=== PATIENT | male | born 1940 | race Caucasian/White ===

== ENCOUNTER 2020-03-23 09:45 | Observation (INO) ==
[2020-03-23] MEDS ORDERED: LIDOCAINE HCL 1% 20 ML VIAL ONE (11:21)
[2020-03-23] MEDS ORDERED: BACITRACIN INJ 50,000 UNIT VIAL ONE (11:22)
[2020-03-23] MEDS ORDERED: BUPIVACAINE 0.25% 30 ML VIAL ONE (11:22)
[2020-03-23] MEDS ORDERED: MIDAZOLAM HCL 5 MG/ML 1 ML VIAL ONE (11:41)
[2020-03-23] MEDS ORDERED: fentaNYL citrate 100 MCG/2 ML VIAL ONE ×2 (11:41→12:29)
--- NOTE | 2020-03-23 11:54 | History & Physical Bridge Note ---
Date of Service March 23, 2020 History & Physical Bridge Note I have examined the patient, reviewed the History & Physical and in the interval since the performance of the History & Physical I have noted the following changes of clinical significance: no changes noted
--- NOTE | 2020-03-23 11:54 | Pre Anesthesia Assessment ---
Date of Service March 23, 2020 Pre Sedation Assessment Vital Signs Temp Pulse Resp BP Pulse Ox 03/23/20 10:16 36.7 C 76 20 132/101 H 99 Cardiovascular + bradycardic Respiratory normal respiratory effort, lungs clear to auscultation Pre-Sedation Airway Assessment Smoking Status: Former smoker Hx Sleep Apnea: No Short, Thick Neck: No Thyromental Distance: < 3.5 Finger Breadths Oral Cavity: + Dentures Mallampati Class: II ASA: ASA3 NPO Status Date of Last Intake of Fluids: 03/22/20 Time of Last Intake of Fluids: 16:00 Date of Last Intake of Solid Food: 03/22/20 Time of Last Intake of Solid Foods: 16:00 Procedure Planning Contraindications for Sedation: none Current Medications Reviewed: Yes Notes The planned sedation has been discussed with the patient. Informed Consent was obtained. I have identified the patient, determined the appropriateness of sedation and have assessed the patient immediately prior to the procedure. All medicine(s) and interventions are by my order.
[2020-03-23] MEDS ORDERED: ACETAMINOPHEN 325 MG TAB PO PRN (13:02)
[2020-03-23] MEDS ORDERED: oxyCODONE/ACETAMINOPHEN 5mg/325mg TAB PO PRN (13:02)
--- NOTE | 2020-03-23 13:02 | Operative Report ---
Post Operative Report Pre & Post Diagnosis SB, [facility] Operation Date: 03/23/20 11:00 <No data on this case meets the specified criteria> I identified the patient and participated in the time-out.: Yes Procedure Operation Date: 03/23/20 11:00 Actual Procedures p ICD Implant - Lakshmi Rubio DO Surgeon Lakshmi Rubio, DO Promotional Demonstrator none Estimated Blood Loss 20 Findings Consistent with Post-Op Diagnosis Specimens none Description of Procedure see official report I attest to the content of the Intraoperative Record and any orders documented therein. Any exceptions are noted below.
--- NOTE | 2020-03-23 13:02 | Post Anesthesia Assessment ---
Date of Service March 23, 2020 Post Sedation Assessment Vital Signs Temp Pulse Resp BP Pulse Ox 03/23/20 10:16 36.7 C 76 20 132/101 H 99 Recovery Score Activity: Moves 4 extremities Respiration: Deep Breath/Cough Circulation: +/-20% PreAnes Value Consciousness: Fully Awake Oxygen Saturation: > 92% On Room Air Discharge Sedation Level of Care: Fast Track Phase II Post Sedation Plan On clinical assessment, the patient appears to have tolerated the sedation without complications. Patient is recovering as anticipated. Patient will continue to be monitored by nursing and may be discharged when sedation discharge criteria are met per below protocol. Upon Completions of procedure up to 15 minutes continue every 5 minute vital signs and the P.A.R. score; then discharge to a Phase I or Fast Track to Phase II per the following guidelines: * Discharge Patient to appropriate Phase II area if PAR is 8 or greater or return to pre- procedure baseline. The post - procedure orders will be as directed. * If PAR score is less than 8 or not return to pre-procedure baseline then patient will follow Phase I monitoring till PAR is reached for Phase II. The Phase I may be done in procedure room or may call to secure a Phase I area. * If naloxone or flumazenil are used for reversal, hold in Phase I for continued monitoring from when last reversal dose was given for a minimum of 60 minutes or longer pending the nurse and/or physician discretion of patient condition before discharge to Phase II. Please call the Sedation Physician to re-evaluate and complete post-note for discharge to Phase II area. Do NOT discharge from procedure sedation or Phase 1 until post- sedation evaluation note is complete by procedure /sedation MD Sedation Discharge Instructions to be given to the patient at discharge to home.
[2020-03-23] MEDS ORDERED: BENZONATATE 100 MG CAPSULE PO PRN (13:04)
[2020-03-23] MEDS ORDERED: FUROSEMIDE 40 MG TAB PO PRN (13:04)
[2020-03-23] MEDS ORDERED: NITROGLYCERIN SL 0.4 MG/TAB TAB SL PRN (13:15)
[2020-03-23 14:58] LABS: INR 1.1 (0.9-1.1); Prothrombin Time 11.5 Seconds (9.0-12.0)
[2020-03-23] MEDS: METOPROLOL SUCC 25MG EXT REL TAB PO SCH (16:08)
[2020-03-23] MEDS ORDERED: WARFARIN SOD 5 MG TAB PO SCH (17:00)
[2020-03-23] MEDS ORDERED: METOPROLOL TARTRATE 25 MG TAB PO SCH (21:00)
[2020-03-23] MEDS ORDERED: PRAVASTATIN SOD 40 MG TAB PO SCH (21:00)
[2020-03-23] MEDS ORDERED: FAMOTIDINE 20 MG TAB PO SCH (21:00)
[2020-03-23] MEDS: metFORMIN HCL 500 MG TAB PO SCH (21:02)
[2020-03-24 06:16] LABS: INR 1.1 (0.9-1.1); Prothrombin Time 11.2 Seconds (9.0-12.0)
--- NOTE | 2020-03-24 06:24 | Electrocardiogram Report ---
Test Reason : Blood Pressure : / mmHG Vent. Rate : 084 BPM Atrial Rate : 084 BPM P-R Int : 150 ms QRS Dur : 130 ms QT Int : 380 ms P-R-T Axes : 055 -75 043 degrees QTc Int : 449 ms Sinus rhythm with Premature supraventricular complexes and with occasional Premature ventricular comp lexes Left axis deviation Low voltage QRS Right bundle branch block Inferior infarct , age undetermined Possible Anterolateral infarct , age undetermined Abnormal ECG No previous ECGs available Confirmed by Steve Cox ([id number]) on 03/24/2020 6:24:36 AM Referred By: Lakshmi Rubio Confirmed By:Steve Cox
[2020-03-24] MEDS ORDERED: LEVOTHYROXINE SODIUM 50 MCG TABLET PO SCH (06:30)
--- NOTE | 2020-03-24 08:00 | XRay Report ---
XR chest 2V PA/lateral CLINICAL HISTORY: Post pacemaker placement COMPARISON STUDY: No previous studies for comparison. FINDINGS: There is a left subclavian implantable cardiac defibrillator. Electrode position appears un remarkable. There is no pneumothorax. The heart is normal in size. There is no failure. There is no f ocal pulmonary consolidation. There is a 1 cm opacity at the right lung base, likely representing a n ipple shadow. A left apical density is felt to be secondary to summation with the left first costocho ndral junction. Postsurgical changes involve the distal left clavicle.[ IMPRESSION: 1. No evidence of pneumothorax status post placement of a left subclavian ICD 2. 1 cm rounded opacity at the right lung base likely representing a nipple shadow ACT 112: Negative or not required by law. Electronically signed by: Usman Downey M.D. 03/24/2020 7:59 AM
[2020-03-24] MEDS: metFORMIN HCL 500 MG TAB PO SCH (08:35)
[2020-03-24] MEDS ORDERED: ISOSORBIDE MONO EXTENDED REL 30 MG TABCR PO SCH (09:00)
[2020-03-24] MEDS ORDERED: CYANOCOBALAMIN 500 MCG TABLET (VITAMIN B-12) PO SCH (09:00)
[2020-03-24] MEDS ORDERED: ASPIRIN 81 MG ECTAB PO SCH (09:00)
[2020-03-24] MEDS ORDERED: FERROUS SULFATE 325 MG TAB PO SCH (09:00)
[2020-03-24] MEDS ORDERED: PANTOprazole 40 MG TAB PO SCH (09:00)
[2020-03-24] MEDS: METOPROLOL SUCC 25MG EXT REL TAB PO SCH (09:57)
--- NOTE | 2020-03-26 18:16 | Operative Report (OR) ---
DATE OF OPERATION: 03/23/2020 PREOPERATIVE DIAGNOSES: Ischemic cardiomyopathy and sinus bradycardia. POSTOPERATIVE DIAGNOSES: Ischemic cardiomyopathy and sinus bradycardia. PROCEDURE: Dual chamber rate responsive implantable cardiac defibrillator under fluoroscopic guidance. SURGEON: Lakshmi Rubio DO. ASSISTANTS: None. ANESTHESIA: Monitored conscious sedation administered by Rosamaria Martins. Start time 12:09, end time 12:57, a total of 5 mg of Versed 150 mcg of fentanyl. INTRAVENOUS FLUIDS: 30 mL. CONTRAST: 10 mL ANTIBIOTICS: Two grams of Ancef. BLOOD LOSS: 20 mL. URINE OUTPUT: Not applicable. SPECIMENS: None. FINDINGS: See below. DRAINS: None. INDICATIONS: This is a 79-year-old gentleman with past medical history for coronary artery disease, history of an CT in 1991 where he got streptokinase anterior CT. He had 80% LAD, status post to the LAD, catheterization in 11/1995, 80% mid LAD stent with a non-STEMI in 2004. He got another catheterization at the [facility] of the LAD and the rest of the blood vessels are nonobstructive. Ischemic cardiomyopathy, ejection fraction 35-40% in 1995, 25% in 2004 and remains low at 25% in 02/2020. Left ventricular thrombus on Coumadin, diabetes, hypothyroidism, hypertension, hyperlipidemia, chronic heart failure [place] Heart Association class III with reduced EF, sinus bradycardia, right bundle branch block and BPH. Due to his ischemic cardiomyopathy and sinus bradycardia, he was recommended dual chamber ICD. CONSENT: Consent was obtained prior to the patient going into electrophysiology lab. The patient was informed of the risks, benefits and alternatives of procedure. Risks include but not limited to sudden cardiac , cardiac arrhythmias, cerebrovascular accident, myocardial infarction, injury to the blood vessels, chamber of the heart, lung, bleeding, and infection. The patient understood these risks and agreed with procedure as planned. Informed consent was obtained. DESCRIPTION OF THE PROCEDURE: The patient was brought into the electrophysiology lab in fasting state. He was connected to continuous cna caregiver. Timeout was performed to ensure patient identity and procedure correctly. The patient was prepped and draped over the left infraclavicular space in normal surgical standard fashion. Monitored conscious sedation was given throughout the procedure for patient's comfort level. Davis precautions were obtained throughout the procedure. 10 mL of 1% lidocaine, bupivacaine mixture were given in left deltopectoral groove. Incision was made in left deltopectoral groove. Blunt dissection performed down to identify the cephalic vein, I think initially I could not identify it, so I gave a peripheral venogram with 10 mL of contrast, but I ended up instead of sticking the axillary, I did dissect down to the cephalic vein. Cephalic vein was isolated using 0 silk ties. The vein was nicked with 11 blade and a guidewire was inserted without any resistance. Then an 8-[place] SafeSheath was inserted over the guidewire without any resistance. Dilator was removed and a second guidewire was inserted through the sheath to allow for retained venous access. Sheath was removed and then a 9.5-[place] SafeSheath was inserted over the guidewire without any resistance. Guidewire and dilator removed. The right ventricular defibrillator lead was then advanced into right ventricle positioned in intraventricular apex under fluoroscopic guidance. There was adequate pacing and sensing thresholds and no diaphragmatic stimulation in high output pacing. The 9.5-[place] sheath was peeled away and lead was fixated to pectoralis muscle using 0 silk suture. A second sheath 8-[place] was advanced over the retained guidewire. The guidewire and dilator removed. The right atrial lead was then advanced into right atrium and positioned into the right atrial appendage under fluoroscopic guidance. There was adequate pacing and sensing thresholds and no diaphragmatic stimulation with high output pacing. The 8-[place] sheath was peeled away and lead was fixated to pectoralis muscle using 0 silk suture. My defibrillator pocket was created using blunt dissection over the pectoralis muscle within the pectoral fascia. The pocket was flushed with copious amounts of bacitracin saline wash and inspected for hemostasis. The pulse generator was attached to the leads making sure the pins were in appropriate position, passed set screw and set screws were all tightened. Pulse generator was then placed in an antibiotic pouch followed by then placing in the pocket, making sure the leads were lying flat beneath the device. The incision was then closed in 2-layer fashion with 2-0 Vicryl interrupted suture followed by 3-0 Vicryl interrupted suture, followed by 4-0 Monocryl running stitch and Dermabond was applied followed by Telfa and micropore dressing. EQUIPMENT: 1. Pulse generator is a [employer] XTDR SureScan [id number], serial number [id number]. 2. Tyrx pouch reference [id number], lot number [id number], expiration 12/06/2020. 3. Right atrial lead Medtronic 5076-52 cm, serial number [id number]. 4. Right ventricular lead, Medtronic 6935M-62 cm, serial number [id number]. INTRAOPERATIVE TESTIN. Right atrial lead: P waves 2.3 millivolts, impedance 602 ohms, threshold 0.8 volts at 0.4 milliseconds. 2. Right ventricular lead: R-waves 8 millivolts, impedance 509 ohms, threshold 0.4 volts at 0.4 milliseconds. FINAL PARAMETERS THROUGH THE DEVICE: 1. Right atrial lead: P waves 2.1 millivolts, impedance 456 ohms, threshold 1 volt at 0.4 milliseconds. 2. Right ventricular lead: R waves 11.3 millivolts, impedance 437 ohms, threshold 0.5 volts at 0.4 milliseconds. 3. RV coil 74 ohms. FINAL PARAMETERS: MVP-R 60/130, right atrial and right ventricular amplitude 3.5 volts, pulse width 0.4 milliseconds, sensitivity 0.3 millivolts. A VT monitor zone at 140 beats per minute for 32 detection intervals, a VT zone at 167 beats per minute for 16 detection intervals and a VF zone at 200 beats per minute for 30/40 detection intervals. IMPRESSION: Successful implantation of a dual chamber rate responsive implantable cardiac defibrillator under fluoroscopic guidance along with a peripheral venogram secondary to ischemic cardiomyopathy and sinus bradycardia. PLAN: Monitor patient overnight, 12-lead ECG, chest x-ray. He is not allowed to lift left elbow or left shoulder for 1 month. He cannot lift more than 10 pounds with the left arm for 2 weeks. He is to keep the dressing on and dry until his wound check next week. We will start him back on metoprolol 25 mg daily, and he will continue to follow with general cardiology. I attest to the content of the Intraoperative Record and any orders documented therein. Any exception s are noted below.
== END 2020-03-24 10:00 | disposition home or self-care (01) ==
LOC: 2S 09:45 → EP 09:45
PROC: EPB.ICD (2020-03-23 11:00)

== ENCOUNTER 2021-06-22 22:02 | Inpatient (IN) ==
[2021-06-22] MEDS ORDERED: PANTOprazole 80 MG in DEXTROSE 5% 100 ML IV ONE (22:32)
[2021-06-22] MEDS ORDERED: PANTOPRAZOLE BOLUS/DRIP 1 EA IV STA (22:32)
[2021-06-22 22:36] LABS: Hematocrit (blood only) 23.8 % (42-52); Hemoglobin 7.5 g/dL (14.0-18.0); Mean Corpuscular Hemoglobin 29.4 pg (25-34); Mean Corpuscular Hgb Conc 31.5 g/dL (32-36); Mean Corpuscular Volume 93.3 fL (80-100); Mean Platelet Volume 9.9 fL (7.4-10.4); Nucleated RBC # (auto) 0.02 K/uL (0-0); Nucleated RBC % (auto) 0.2 %; Platelet Count 376 K/uL (130-400); RDW Coefficient of Variation 15.7 % (11.5-14.5); RDW Standard Deviation 53.3 fL (36.4-46.3); Red Blood Count 2.55 M/uL (4.7-6.1); White Blood Count 11.59 K/uL (4.8-10.8)
[2021-06-22 22:42] LABS: iSTAT Creatinine 1.6 mg/dl (0.6-1.3); iSTAT Hemoglobin 6.8 g/dl (14.0-18.0); iSTAT Ionized Calcium 1.29 mmol/l (1.12-1.32)
--- NOTE | 2021-06-22 22:50 | Emergency Department Note ---
Impression & Plan Acute GI bleeding, Elevated troponin I level, ABLA (acute blood loss anemia), Elevated INR ED Provider Note Provider: Geovanny Lamb MD DATE OF SERVICE: 06/22/2021 CHIEF COMPLAINT: Weakness HISTORY OF PRESENT ILLNESS: Patient is a 80-year-old gentleman history of type 2 diabetes, CHF with reduced EF, GA, AICD placement, mural thrombus on warfarin, hypothyroidism presenting here today via ambulance for generalized weakness. Over the past 2 to 3 days the patient states he began to feel more weak in general. Today he felt somewhat dizzy and lightheaded and fell to the ground. Denies loss of consciousness. Is on a baby aspirin as well as Coumadin. Was able to call his brother and EMS was activated. In route with EMS, the patient developed significant vomiting and vomited coffee-ground emesis and a significant quantity. Patient denies any abdominal pain or chest pain. He is planning to undergo surgery for a left humeral fracture from an injury in March but denies other pains at this time. Patient states he feels generally weak. Denies any headache or new numbness or weakness focally. REVIEW OF SYSTEMS: A total of 10 review of systems was obtained and negative except as stated above in the HPI. PAST MEDICAL HISTORY: As noted above MEDICATIONS: Reviewed home medication list includes Coumadin SOCIAL HISTORY: Lives by himself PHYSICAL EXAM: GENERAL: alert and oriented in no acute distress on stretcher slightly pale in appearance. Head: normocephalic and atraumatic, there is some slight dried coffee grounds in the patient's nose. No renee sign noted. EYES: No injection, discharge or icterus. NECK: Trachea midline. ENT: Mucous membranes pink and moist. LUNGS: Airway patent. No retractions. Breath sounds clear HEART: Regular rate and rhythm. No chest wall tenderness with a left upper chest wall pacemaker in place ABDOMEN: Soft and non-tender, without guarding or rebound. Rectal: With nurse fishing rod marker in room, black melanotic stools Hemoccult positive. SKIN: Acyanotic, warm, dry slightly pale. EXTREMITIES: Without swelling, tenderness or deformity except for some trace bilateral pedal edema with tenderness of the left proximal upper arm without obvious bruising. NEUROLOGICAL: No focal deficits. No aphasia. No facial droop or slurred speech. EK bpm sinus tachycardia with right bundle branch block. No acute ST segment elevation noted with a QTC of 482. CONTINUOUS CARDIAC MONITORING: was ordered and showed a heart rate of 90s to 100s Bpm in normal sinus rhythm to sinus tachycardia One view chest x-ray per my interpretation: Pacemaker in cardiac leads in place. No obvious pneumonia or pneumothorax noted. No free air under the diaphragm noted. Patient's laboratory studies and imaging reviewed. Differential includes Diverticulosis, AVM, coagulopathy, colitis, inflammatory bowel disease, malignancy, Racheal-Orr tear, esophagitis, peptic ulcer disease, variceal bleed, gastritis, epistaxis, fissure, hemorrhoids, as well as other pathologies. IMPRESSION/MEDICAL DECISION MAKING: Patient is a generalized weakness with episode of coffee-ground emesis in route while on Coumadin as well as aspirin. Patient with Hemoccult positive melena on exam. Benign abdomen. Only significant tenderness on exam related to the left upper arm with prior subacute fracture here from injury in March. Had basic blood work and cardiac echo completed yesterday per review of the records in the [facility] system. History of mural thrombus but no findings of this on the echo report available. Given his GI bleed start on Protonix drip. CT the head, cervical spine, as well as the abdomen pelvis completed given the fall history as well as concerns for GI bleed at this time. Fairly benign abdomen and doubt perforation. Question upper GI bleed and prior endoscopy several years ago and this is to medicate gastritis at that time. Hemoglobin decreased at 7.5 here on the formal labs with mild leukocytosis 11.5 likely more reactive. Blood work yesterday had an hemoglobin of 12.7 on outpatient lab work. Significantly elevated BUN with mild creatinine elevation 1.6. Blood work later returns with slight troponin elevation and a significantly elevated lactate. Patient not hypotensive here. He was consented for blood. 3 units of blood were ordered, will need to monitor for any possible fluid overload given his history of CHF. Vitamin K was ordered. Given elevated INR from Coumadin the GI bleed full reversal with Kcentra was initiated (was later able to contact Dr. Don via phone after a slight delay). CT the head and cervical spine as delineated below without significant acute traumatic injury per the report. CT of the abdomen pelvis radiology report really only notable for possible findings of pneumonia and question if with the vomiting earlier may have aspirated some. Given a dose of ceftriaxone. Patient not hypoxic here or any respiratory distress. Updated the patient with the findings. Discussed with the hospitalist for further care here at the hospital. Again has been hemodynami ashley stable here. DIAGNOSIS: Acute GI bleed, weakness, acute anemia, elevated troponin, elevated INR DISPOSITION: Hospitalist will evaluate for further inpatient care Patient was agreeable with this plan. Preliminary Findings Only See Final Report For Complete Findings CT HEAD: Mild cerebral atrophy and periventricular white matter low density consistent with chronic small vessel disease and/or senescent changes. There is no evidence of acute large vessel infarct or intracranial hemorrhage. The paranasal sinuses and mastoid air cells are normal. No skull fracture or significant scalp hematoma is identified. There are 2 punctate calcifications in the right side of the jessica. This is nonspecific but could represent small chronic vascular malformation. No hemorrhage or mass identified. Radiologist: Geovanny Gamboa MD Preliminary Findings Only See Final Report For Complete Findings CT C SPINE: Mild degenerative disc space narrowing and osteophytosis in the lower cervical spine. The facets and spinous processes are intact. The spinal alignment is normal. No acute cervical spine fracture or traumatic subluxation is seen. Axial soft tissue images show severe findings at the following levels: C5-6: Disc space narrowing and 3 mm posterior disc bulge and disc marginal osteophyte narrows the canal to 7 mm. There is mild bilateral neural foraminal narrowing. C6-7: Disc space narrowing with 2 mm posterior disc marginal osteophyte. No significant spinal stenosis is seen. There is mild bilateral neural foraminal narrowing. Incidental note is made of severe calcified plaque in the origin of the left subclavian artery and moderate calcified plaque in both carotid bifurcations, greater on the right than the left. Radiologist: Geovanny Gamboa MD N Study ready at 23:50 and initial results transmitted at 00:07 Preliminary Findings Only See Final Report For Complete Findings CT ABDOMEN & PELVIS With Contrast: Scattered patchy airspace infiltrates in the right middle lobe and right lower lobe consistent with pneumonia. No solid organ injury or free fluid is seen within the abdomen or pelvis. The liver, gallbladder, pancreas, spleen, adrenal glands, and kidneys appear nonacute. Incidental note is made of a 3.5 cm simple cyst in the lower pole the left kidney. The aorta is mildly calcified but nondilated. Bowel loops are nondilated. No pneumoperitoneum, free fluid, or acute inflammatory changes are seen involving the bowel. The appendix is normal. The urinary bladder is partially distended and unremarkable. The pelvis is intact. There are mild to moderate degenerative changes in the lumbar spine. No acute fracture or subluxation is seen. Radiologist: Geovanny Gamboa MD Critical Care I have personally spent 32 minutes of critical care time in the direct management of this patient. This includes bedside care, interpretation of diagnostic studies, and testing, discussion with consultants, patient, and other required patient management activities. These 32 minutes is in excess of all separately billable procedures. Past Med/Surg History Medical History (Updated 06/22/21 @ 23:52 by Geovanny Lamb M.D.) Diabetes mellitus, type 2 History of GI bleed History of left heart catheterization 1991 [place], NO STENTS 2004 [facility], UNSURE OF STENTS Hyperlipidemia Hypertension Ischemic cardiomyopathy Pt admitted for elective ICD due to ICM. Pt underwent procedure without any complications; monitored overnight and discharged home. Osteoarthritis Poor historian Sinus bradycardia Surgical History History of adenoidectomy History of carpal tunnel release of both wrists History of cataract surgery BOTH EYES History of colonoscopy 5 YEARS AGO History of tonsillectomy History of tooth extraction Social History Smoking Status: Never smoker Hx Alcohol Use: Yes Alcohol type: beer Hx Substance Use: No Preferred Language: Latvian Communication Ability: Effective Acid Patroller Required: No Beliefs That Will Affect Care: None Current Living Situation: Alone Feels Safe at Home: Yes Assistive Devices: None Allergies Allergies Allergy/AdvReac Type Severity Reaction Status Date / Time No Known Allergies Allergy Verified 06/22/21 22:21 Home Meds Home Medications Medication Instructions Recorded Confirmed aspirin 81 mg tablet,delayed 81 mg PO QAM 01/14/20 06/22/21 release (Aspirin Low Dose) cyanocobalamin (vitamin B-12) 1,000 mcg PO QAM 01/14/20 06/22/21 1,000 mcg capsule famotidine 20 mg tablet 20 mg PO HS 01/14/20 06/22/21 isosorbide mononitrate 30 mg 30 mg PO QAM 01/14/20 06/22/21 tablet,extended release 24 hr metformin 1,000 mg tablet 1,000 mg PO BID 01/14/20 06/22/21 nitroglycerin 0.4 mg sublingual 0.4 mg SUBLINGUAL UD 01/14/20 06/22/21 tablet (Nitrostat) atorvastatin 40 mg tablet 40 mg PO DAILY 06/22/21 06/22/21 doxycycline hyclate 100 mg capsule 100 mg PO BID 06/22/21 06/22/21 furosemide 40 mg tablet 80 mg PO DAILY 06/22/21 06/22/21 gabapentin 100 mg capsule 100 mg PO AMHS 06/22/21 06/22/21 levothyroxine 100 mcg tablet 100 mcg PO DAILYBB 06/22/21 06/22/21 magnesium oxide 400 mg PO DAILY 06/22/21 06/22/21 metoprolol succinate 50 mg 50 mg PO DAILY 06/22/21 06/22/21 tablet,extended release 24 hr omeprazole 40 mg capsule,delayed 40 mg PO DAILYBB 06/22/21 06/22/21 release warfarin 5 mg tablet See Rx Instructions .ROUTE .COMPLEX 06/22/21 06/22/21 Results & Data (ED) Vital Signs Vital Signs - 24 hr 06/22/21 22:30 06/22/21 22:48 06/22/21 23:42 Temperature 35.4 C L Temperature Source Rectal Pulse Rate 110 H 106 H Pulse Rate [Right Finger] 100 H Pulse Rhythm Regular Regular Pulse Strength Normal Respiratory Rate 18 18 19 Respiratory Effort / Characteristics Non-Labored Spontaneous Non-Labored Spontaneous Respiratory Depth Normal Normal Respiratory Pattern Regular Blood Pressure 119/62 Blood Pressure [Right Arm] 124/67 Blood Pressure Mean 81 Blood Pressure Mean [Right Arm] 86 Blood Pressure Position Lying Pulse Oximetry 100 96 Oxygen Delivery Method Room Air Room Air Sepsis Recent Fever Within 48 Hours No Sepsis New/Unexplained Change in Mental Status No Sepsis Action Taken by Nursing Physician Notified 06/22/21 23:59 06/23/21 00:18 06/23/21 00:33 Temperature 36.5 C 34.9 C L 36.5 C Temperature Source Oral Oral Oral Pulse Rate 101 H 104 H 107 H Pulse Rate [Right Finger] Pulse Rhythm Regular Regular Regular Pulse Strength Normal Normal Normal Respiratory Rate 16 18 17 Respiratory Effort / Characteristics Respiratory Depth Respiratory Pattern Blood Pressure 128/63 123/70 116/69 Blood Pressure [Right Arm] Blood Pressure Mean 84 87 84 Blood Pressure Mean [Right Arm] Blood Pressure Position Lying Lying Lying Pulse Oximetry 95 94 93 Oxygen Delivery Method Sepsis Recent Fever Within 48 Hours Sepsis New/Unexplained Change in Mental Status Sepsis Action Taken by Nursing 06/23/21 01:03 Temperature 36.4 C L Temperature Source Oral Pulse Rate 106 H Pulse Rate [Right Finger] Pulse Rhythm Regular Pulse Strength Normal Respiratory Rate 16 Respiratory Effort / Characteristics Respiratory Depth Respiratory Pattern Blood Pressure 114/62 Blood Pressure [Right Arm] Blood Pressure Mean 79 Blood Pressure Mean [Right Arm] Blood Pressure Position Lying Pulse Oximetry 99 Oxygen Delivery Method Sepsis Recent Fever Within 48 Hours Sepsis New/Unexplained Change in Mental Status Sepsis Action Taken by Nursing Laboratory Data Result diagrams: 06/22/21 22:25 06/22/21 22:25 Lab Results 06/22/21 06/22/21 06/22/21 Range/Units 22:21 22:25 22:25 WBC 11.59 H (4.8-10.8) K/uL RBC 2.55 L (4.7-6.1) M/uL Hgb 7.5 L (14.0-18.0) g/dL POC Hgb (14.0-18.0) g/dl Hct 23.8 L (42-52) % POC Hct (42-52) % MCV 93.3 (80-100) fL MCH 29.4 (25-34) pg MCHC 31.5 L (32-36) g/dL RDW Std Deviation 53.3 H (36.4-46.3) fL RDW Coeff of Nicole 15.7 H (11.5-14.5) % Plt Count 376 (130-400) K/uL MPV 9.9 (7.4-10.4) fL Immature Gran % (Auto) 0.8 % Neut % (Auto) 79.7 % Lymph % (Auto) 12.3 % Fajardo % (Auto) 7.1 % Eos % (Auto) 0.0 % Baso % (Auto) 0.1 % Neut # (Auto) 9.25 H (1.4-6.5) K/uL Lymph # (Auto) 1.42 (1.2-3.4) K/uL Fajardo # (Auto) 0.82 H (0.11-0.59) K/uL Eos # (Auto) 0.00 (0-0.5) K/uL Baso # (Auto) 0.01 (0-0.2) K/uL Immature Gran # (Auto) 0.09 H (0.00-0.02) K/uL Absolute Nucleated RBC 0.02 H (0-0) K/uL Nucleated RBC % (auto) 0.2 % PT (9.0-12.0) Seconds INR (0.9-1.1) POC Sodium (135-144) mmol/L Sodium (136-145) mmol/L POC Potassium (3.3-5.0) mmol/L Potassium (3.5-5.1) mmol/L POC Chloride (101-112) mmol/L Chloride (98-107) mmol/L Carbon Dioxide (21-32) mmol/L POC Total CO2 (24-31) mmol/L Anion Gap (3-11) POC Anion Gap (16-25) mmol/L POC BUN (7-18) mg/dl BUN (6-23) mg/dl Creatinine (0.6-1.4) mg/dl POC Creatinine (0.6-1.3) mg/dl Est Cr Clr Drug Dosing ml/min Est GFR ( Amer) ml/min Est GFR (Non-Af Amer) ml/min BUN/Creatinine Ratio (10-20) Glucose (70-99(Fasting)) mg/dl POC Glucose (other) (70-99) mg/dl Lactate (0.4-2.0) mmol/L Calcium (8.5-10.1) mg/dl POC Ioniz Calcium Leo (1.12-1.32) mmol/l Magnesium (1.7-2.4) mg/dl Total Bilirubin (0.2-1.0) mg/dl AST (13-39) U/L ALT (7-52) U/L Alkaline Phosphatase (34-104) U/L Total Creatine Kinase (30-223) U/L Troponin I (0-0.04) ng/ml Total Protein (6.0-8.3) gm/dl Albumin (3.4-5.0) gm/dl Globulin (2.5-4.0) gm/dl Albumin/Globulin Ratio (0.9-2) TSH (0.300-4.500) uIu/ml Free T4 (0.61-1.60) ng/dl POC Stool Occult Blood Positive A (Negative) SARS-CoV-2, RNA, NAAT (NEGATIVE) Blood Type B Negative Blood Type Recheck Antibody Screen NEGATIVE Crossmatch See Detail 06/22/21 06/22/21 06/22/21 Range/Units 22:25 22:25 22:25 WBC (4.8-10.8) K/uL RBC (4.7-6.1) M/uL Hgb (14.0-18.0) g/dL POC Hgb (14.0-18.0) g/dl Hct (42-52) % POC Hct (42-52) % MCV (80-100) fL MCH (25-34) pg MCHC (32-36) g/dL RDW Std Deviation (36.4-46.3) fL RDW Coeff of Nicole (11.5-14.5) % Plt Count (130-400) K/uL MPV (7.4-10.4) fL Immature Gran % (Auto) % Neut % (Auto) % Lymph % (Auto) % Fajardo % (Auto) % Eos % (Auto) % Baso % (Auto) % Neut # (Auto) (1.4-6.5) K/uL Lymph # (Auto) (1.2-3.4) K/uL Fajardo # (Auto) (0.11-0.59) K/uL Eos # (Auto) (0-0.5) K/uL Baso # (Auto) (0-0.2) K/uL Immature Gran # (Auto) (0.00-0.02) K/uL Absolute Nucleated RBC (0-0) K/uL Nucleated RBC % (auto) % PT 72.5 H (9.0-12.0) Seconds INR 8.5 H* (0.9-1.1) POC Sodium (135-144) mmol/L Sodium 138 (136-145) mmol/L POC Potassium (3.3-5.0) mmol/L Potassium 5.1 (3.5-5.1) mmol/L POC Chloride (101-112) mmol/L Chloride 104 (98-107) mmol/L Carbon Dioxide 16 L (21-32) mmol/L POC Total CO2 (24-31) mmol/L Anion Gap 18 H (3-11) POC Anion Gap (16-25) mmol/L POC BUN (7-18) mg/dl BUN 92 H (6-23) mg/dl Creatinine 1.41 H (0.6-1.4) mg/dl POC Creatinine (0.6-1.3) mg/dl Est Cr Clr Drug Dosing 43.9 ml/min Est GFR ( Amer) 54.5 ml/min Est GFR (Non-Af Amer) 47.0 ml/min BUN/Creatinine Ratio 65.2 H (10-20) Glucose 221 H (70-99(Fasting)) mg/dl POC Glucose (other) (70-99) mg/dl Lactate 10.3 H* (0.4-2.0) mmol/L Calcium 9.1 (8.5-10.1) mg/dl POC Ioniz Calcium Leo (1.12-1.32) mmol/l Magnesium 1.9 (1.7-2.4) mg/dl Total Bilirubin 0.2 (0.2-1.0) mg/dl AST 11 L (13-39) U/L ALT 8 (7-52) U/L Alkaline Phosphatase 50 (34-104) U/L Total Creatine Kinase 47 (30-223) U/L Troponin I 0.07 H* (0-0.04) ng/ml Total Protein 5.2 L (6.0-8.3) gm/dl Albumin 2.6 L (3.4-5.0) gm/dl Globulin 2.6 (2.5-4.0) gm/dl Albumin/Globulin Ratio 1.0 (0.9-2) TSH (0.300-4.500) uIu/ml Free T4 (0.61-1.60) ng/dl POC Stool Occult Blood (Negative) SARS-CoV-2, RNA, NAAT (NEGATIVE) Blood Type Blood Type Recheck Antibody Screen Crossmatch 06/22/21 06/22/21 06/22/21 Range/Units 22:25 22:30 22:46 WBC (4.8-10.8) K/uL RBC (4.7-6.1) M/uL Hgb (14.0-18.0) g/dL POC Hgb 6.8 L* (14.0-18.0) g/dl Hct (42-52) % POC Hct 20 L* (42-52) % MCV (80-100) fL MCH (25-34) pg MCHC (32-36) g/dL RDW Std Deviation (36.4-46.3) fL RDW Coeff of Nicole (11.5-14.5) % Plt Count (130-400) K/uL MPV (7.4-10.4) fL Immature Gran % (Auto) % Neut % (Auto) % Lymph % (Auto) % Fajardo % (Auto) % Eos % (Auto) % Baso % (Auto) % Neut # (Auto) (1.4-6.5) K/uL Lymph # (Auto) (1.2-3.4) K/uL Fajardo # (Auto) (0.11-0.59) K/uL Eos # (Auto) (0-0.5) K/uL Baso # (Auto) (0-0.2) K/uL Immature Gran # (Auto) (0.00-0.02) K/uL Absolute Nucleated RBC (0-0) K/uL Nucleated RBC % (auto) % PT (9.0-12.0) Seconds INR (0.9-1.1) POC Sodium 137 (135-144) mmol/L Sodium (136-145) mmol/L POC Potassium 5.0 (3.3-5.0) mmol/L Potassium (3.5-5.1) mmol/L POC Chloride 104 (101-112) mmol/L Chloride (98-107) mmol/L Carbon Dioxide (21-32) mmol/L POC Total CO2 16 L (24-31) mmol/L Anion Gap (3-11) POC Anion Gap 23.0 (16-25) mmol/L POC BUN 102 H* (7-18) mg/dl BUN (6-23) mg/dl Creatinine (0.6-1.4) mg/dl POC Creatinine 1.6 H (0.6-1.3) mg/dl Est Cr Clr Drug Dosing ml/min Est GFR ( Amer) ml/min Est GFR (Non-Af Amer) ml/min BUN/Creatinine Ratio (10-20) Glucose (70-99(Fasting)) mg/dl POC Glucose (other) 216 H (70-99) mg/dl Lactate (0.4-2.0) mmol/L Calcium (8.5-10.1) mg/dl POC Ioniz Calcium Leo 1.29 (1.12-1.32) mmol/l Magnesium (1.7-2.4) mg/dl Total Bilirubin (0.2-1.0) mg/dl AST (13-39) U/L ALT (7-52) U/L Alkaline Phosphatase (34-104) U/L Total Creatine Kinase (30-223) U/L Troponin I (0-0.04) ng/ml Total Protein (6.0-8.3) gm/dl Albumin (3.4-5.0) gm/dl Globulin (2.5-4.0) gm/dl Albumin/Globulin Ratio (0.9-2) TSH 5.816 H (0.300-4.500) uIu/ml Free T4 0.88 (0.61-1.60) ng/dl POC Stool Occult Blood (Negative) SARS-CoV-2, RNA, NAAT (NEGATIVE) Blood Type Blood Type Recheck B Negative Antibody Screen Crossmatch 06/22/21 Range/Units 23:49 WBC (4.8-10.8) K/uL RBC (4.7-6.1) M/uL Hgb (14.0-18.0) g/dL POC Hgb (14.0-18.0) g/dl Hct (42-52) % POC Hct (42-52) % MCV (80-100) fL MCH (25-34) pg MCHC (32-36) g/dL RDW Std Deviation (36.4-46.3) fL RDW Coeff of Nicole (11.5-14.5) % Plt Count (130-400) K/uL MPV (7.4-10.4) fL Immature Gran % (Auto) % Neut % (Auto) % Lymph % (Auto) % Fajardo % (Auto) % Eos % (Auto) % Baso % (Auto) % Neut # (Auto) (1.4-6.5) K/uL Lymph # (Auto) (1.2-3.4) K/uL Fajardo # (Auto) (0.11-0.59) K/uL Eos # (Auto) (0-0.5) K/uL Baso # (Auto) (0-0.2) K/uL Immature Gran # (Auto) (0.00-0.02) K/uL Absolute Nucleated RBC (0-0) K/uL Nucleated RBC % (auto) % PT (9.0-12.0) Seconds INR (0.9-1.1) POC Sodium (135-144) mmol/L Sodium (136-145) mmol/L POC Potassium (3.3-5.0) mmol/L Potassium (3.5-5.1) mmol/L POC Chloride (101-112) mmol/L Chloride (98-107) mmol/L Carbon Dioxide (21-32) mmol/L POC Total CO2 (24-31) mmol/L Anion Gap (3-11) POC Anion Gap (16-25) mmol/L POC BUN (7-18) mg/dl BUN (6-23) mg/dl Creatinine (0.6-1.4) mg/dl POC Creatinine (0.6-1.3) mg/dl Est Cr Clr Drug Dosing ml/min Est GFR ( Amer) ml/min Est GFR (Non-Af Amer) ml/min BUN/Creatinine Ratio (10-20) Glucose (70-99(Fasting)) mg/dl POC Glucose (other) (70-99) mg/dl Lactate (0.4-2.0) mmol/L Calcium (8.5-10.1) mg/dl POC Ioniz Calcium Leo (1.12-1.32) mmol/l Magnesium (1.7-2.4) mg/dl Total Bilirubin (0.2-1.0) mg/dl AST (13-39) U/L ALT (7-52) U/L Alkaline Phosphatase (34-104) U/L Total Creatine Kinase (30-223) U/L Troponin I (0-0.04) ng/ml Total Protein (6.0-8.3) gm/dl Albumin (3.4-5.0) gm/dl Globulin (2.5-4.0) gm/dl Albumin/Globulin Ratio (0.9-2) TSH (0.300-4.500) uIu/ml Free T4 (0.61-1.60) ng/dl POC Stool Occult Blood (Negative) SARS-CoV-2, RNA, NAAT NEGATIVE (NEGATIVE) Blood Type Blood Type Recheck Antibody Screen Crossmatch Administered Medications Pantoprazole Sodium 40 mg/ (Dextrose) 100 mls @ 20 mls/hr IV Q5H [facility] Stop: 07/22/21 22:59 Last Admin: 06/23/21 00:10 Dose: 8 mg/hr, 20 mls/hr Documented by: [id number] Prothrombin Complex Concent ( (Human) 4,500 units/ Syringe) 180 mls @ 10 mls/min IV TODAY@2345 [facility]; Protocol Stop: 06/23/21 02:00 Last Admin: 06/22/21 23:53 Dose: 10 mls/min Documented by: [id number] Discontinued Medications Pantoprazole Sodium (Protonix Bolus/Drip) 0 mls @ 1 mls/hr IV ONE STA Stop: 06/22/21 22:33 Last Infusion: 06/23/21 00:13 Dose: 0 mls/hr Documented by: [id number] Admin: 06/22/21 23:40 Dose: 1 mls/hr Documented by: [id number] Pantoprazole Sodium 80 mg/ (Dextrose) 120 mls @ 400 mls/hr IV NOW ONE Stop: 06/22/21 22:49 Last Infusion: 06/22/21 23:58 Dose: 0 mls/hr Documented by: [id number] Admin: 06/22/21 23:43 Dose: 400 mls/hr Documented by: [id number] Phytonadione 10 mg/ Sodium (Chloride) 51 mls @ 102 mls/hr IV ONE ONE Stop: 06/22/21 23:43 Last Infusion: 06/23/21 00:11 Dose: 0 mls/hr Documented by: [id number] Admin: 06/22/21 23:40 Dose: 102 mls/hr Documented by: [id number] Ioversol (Optiray 320 100ml) 94 ml IV ONCE ONE Stop: 06/22/21 23:22 Last Admin: 06/22/21 23:24 Dose: 94 ml Documented by: [id number] Discharge Plan Visit Data Chief Complaint: Weakness ED Provider: Geovanny Lamb Discharge Problem: Acute GI bleeding, Elevated troponin I level, ABLA (acute blood loss anemia), Elevated INR Patient Disposition: Admitted As Inpatient Forms Stand Alone Forms: [facility] Prescriptions Prescriptions: No Action isosorbide mononitrate 30 mg Tablet Extended Release 24 Hr 30 mg PO QAM RF: 0 aspirin [Aspirin Low Dose] 81 mg Tablet,Delayed Release (Dr/Ec) 81 mg PO QAM RF: 0 famotidine 20 mg Tablet 20 mg PO HS RF: 0 metformin 1,000 mg Tablet 1,000 mg PO BID RF: 0 nitroglycerin [Nitrostat] 0.4 mg Tablet, Sublingual 0.4 mg sublingual UD RF: 0 cyanocobalamin (vitamin B-12) 1,000 mcg Capsule 1,000 mcg PO QAM RF: 0 furosemide 40 mg tablet 80 mg PO DAILY RF: 0 atorvastatin 40 mg tablet 40 mg PO DAILY RF: 0 doxycycline hyclate 100 mg capsule 100 mg PO BID RF: 0 metoprolol succinate 50 mg tablet extended release 24 hr 50 mg PO DAILY RF: 0 omeprazole 40 mg Capsule,Delayed Release(Dr/Ec) 40 mg PO DAILYBB RF: 0 levothyroxine 100 mcg tablet 100 mcg PO DAILYBB RF: 0 warfarin 5 mg tablet See Rx Instructions .ROUTE .COMPLEX RF: 0 gabapentin 100 mg capsule 100 mg PO AMHS RF: 0 magnesium oxide 400 mg magnesium Tablet 400 mg PO DAILY RF: 0 Referrals Referrals: Anabel Haywood CRNP [Outside Practitioners] -
[2021-06-22 22:54] LABS: Basophils # (auto) 0.01 K/uL (0-0.2); Basophils % (auto) 0.1 %; Immature Granulocytes # (auto) 0.09 K/uL (0.00-0.02); Immature Granulocytes % (auto) 0.8 %; Lymphocytes # (auto) 1.42 K/uL (1.2-3.4); Lymphocytes % (auto) 12.3 %; Monocytes # (auto) 0.82 K/uL (0.11-0.59); Monocytes % (auto) 7.1 %; Neutrophils # (auto) 9.25 K/uL (1.4-6.5); Neutrophils % (auto) 79.7 %
[2021-06-22 22:57] LABS: Prothrombin Time 72.5 Seconds (9.0-12.0)
[2021-06-22 23:00] LABS: Albumin Level 2.6 gm/dl (3.4-5.0); BUN Creatinine Ratio 65.2 (10-20); Bilirubin,Total 0.2 mg/dl (0.2-1.0); Calcium 9.1 mg/dl (8.5-10.1); Creatinine Clr Calc Pharmacy 43.9 ml/min; Est GFR (African American) 54.5 ml/min; Globulin 2.6 gm/dl (2.5-4.0); Magnesium 1.9 mg/dl (1.7-2.4); Potassium 5.1 mmol/L (3.5-5.1); Total Protein 5.2 gm/dl (6.0-8.3)
[2021-06-22 23:01] LABS: Troponin I 0.07 ng/ml (0-0.04)
[2021-06-22] MEDS ORDERED: SODIUM CHLORIDE 0.9% 250 ML IV PRN (23:06)
[2021-06-22 23:10] LABS: Thyroid Stimulating Hormone 5.816 uIu/ml (0.300-4.500)
[2021-06-22] MEDS ORDERED: PHYTONADIONE 10 MG in SODIUM CHLORIDE 0.9% 50 ML IV ONE (23:14)
[2021-06-22] MEDS ORDERED: OPTIRAY 320 100ml IV ONE (23:21)
[2021-06-22 23:38] LABS: INR 8.5 (0.9-1.1)
[2021-06-22 23:44] LABS: T4 Free Thyroxine 0.88 ng/dl (0.61-1.60)
[2021-06-22] MEDS ORDERED: PROTHROMBIN COMP KCENTRA IV SCH (23:45)
[2021-06-23] MEDS: PANTOprazole 40 MG in DEXTROSE 5% 100 ML IV SCH ×6 (00:10→23:40)
[2021-06-23] MEDS ORDERED: cefTRIAXone SODIUM 2,000 MG/70 ML BAG IV SCH (00:17)
[2021-06-23] MEDS ORDERED: cefTRIAXone SODIUM 2,000 MG/70 ML BAG IV STA (00:17)
--- NOTE | 2021-06-23 00:44 | History & Physical Report ---
Date of Service June 23, 2021 Assessment & Plan (1) Acute GI bleeding: Plan: UGIB In the setting of Coumadin coagulopathy, history of LV thrombus Differentials include gastritis, PUD Acute on chronic anemia secondary to above Troponin elevation in the setting of abnormal kidney function chronic systolic heart failure secondary to ischemic cardiomyopathy (EF less than 20%, TTE 2021) status post ICD, patient on the dry side hypertension, BP on the lower side hyperlipidemia on statin Rx COPD, stable DM2 on oral medications, well-controlled as of recent hemoglobin A1c of 6.01 June 2021 hypothyroidism, recent outpatient TSH slightly elevated at 4.6 past tobacco abuse. PCU given troponin elevation and borderline BP IV PPI Appropriate to hold home aspirin and Coumadin for now Transfuse PRBC to maintain hemoglobin greater than 8 and or for symptomatic anemia GI consult Re: GI bleed Follow troponin Basal insulin adjusted for n.p.o. status, ISS BG goal 1 10-1 40 DVT prophylaxis. SCDs if INR less than 2 while Coumadin on hold Full code History of Present Illness Chief Complaint: Weakness, coffee-ground emesis Primary Care Provider: Kaitlin Nayak MD History obtained from patient and records. Medical history significant for chronic systolic heart failure secondary to ischemic cardiomyopathy (EF less than 20%, TTE 2021) status post ICD CAD status post stent, history LV thrombus on Coumadin, hypertension, hyperlipidemia, COPD, BPH, DM2 on oral medications, CRI (baseline creatinine 1.3 ), chronic anemia (baseline hemoglobin 12 to 13), hypothyroidism, past tobacco abuse. Patient felt weak the last 2 days. Dizzy and lightheaded falling to the ground without LOC, headache symptoms. Short of breath without unusual cough or chest pain symptoms. Usual cough symptoms from "silicosis" as per patient. Patient subsequently had coffee-ground emesis and melanotic stools without abdominal pain. No prior episodes as per patient. No recent changes in Coumadin regimen. Denies OTC NSAID intake. Patient brought to the ER for evaluation. INR noted to be 8.5. Vitamin K and Kcentra administered at the ER. IV PPI initiated for UGI bleed. 1 unit packed RBC transfused at the ER. Medical History as above 2019 EGD showed gastritis 2010 colonoscopy showed colonic inflammation. 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 Allergies Allergy/AdvReac Type Severity Reaction Status Date / Time No Known Allergies Allergy Verified 06/22/21 22:21 Home Medications Medication Instructions Recorded Confirmed Type aspirin 81 mg tablet,delayed 81 mg PO QAM 01/14/20 06/22/21 History release (Aspirin Low Dose) cyanocobalamin (vitamin B-12) 1,000 mcg PO QAM 01/14/20 06/22/21 History 1,000 mcg capsule famotidine 20 mg tablet 20 mg PO HS 01/14/20 06/22/21 History isosorbide mononitrate 30 mg 30 mg PO QAM 01/14/20 06/22/21 History tablet,extended release 24 hr metformin 1,000 mg tablet 1,000 mg PO BID 01/14/20 06/22/21 History nitroglycerin 0.4 mg sublingual 0.4 mg SUBLINGUAL UD 01/14/20 06/22/21 History tablet (Nitrostat) atorvastatin 40 mg tablet 40 mg PO DAILY 06/22/21 06/22/21 History doxycycline hyclate 100 mg capsule 100 mg PO BID 06/22/21 06/22/21 History furosemide 40 mg tablet 80 mg PO DAILY 06/22/21 06/22/21 History gabapentin 100 mg capsule 100 mg PO AMHS 06/22/21 06/22/21 History levothyroxine 100 mcg tablet 100 mcg PO DAILYBB 06/22/21 06/22/21 History magnesium oxide 400 mg PO DAILY 06/22/21 06/22/21 History metoprolol succinate 50 mg 50 mg PO DAILY 06/22/21 06/22/21 History tablet,extended release 24 hr omeprazole 40 mg capsule,delayed 40 mg PO DAILYBB 06/22/21 06/22/21 History release warfarin 5 mg tablet See Rx Instructions .ROUTE .COMPLEX 06/22/21 06/22/21 History Past Med/Surg History Medical History (Updated 06/22/21 @ 23:52 by Geovanny Lamb M.D.) Diabetes mellitus, type 2 History of GI bleed History of left heart catheterization 1991 [facility], NO STENTS 2004 [facility], UNSURE OF STENTS Hyperlipidemia Hypertension Ischemic cardiomyopathy Pt admitted for elective ICD due to ICM. Pt underwent procedure without any complications; monitored overnight and discharged home. Osteoarthritis Poor historian Sinus bradycardia Surgical History History of adenoidectomy History of carpal tunnel release of both wrists History of cataract surgery BOTH EYES History of colonoscopy 5 YEARS AGO History of tonsillectomy History of tooth extraction Social History Smoking Status: Never smoker Hx Alcohol Use: Yes Alcohol type: beer Hx Substance Use: No Preferred Language: Swedish Communication Ability: Effective Chlorination Operator Required: No Beliefs That Will Affect Care: None Current Living Situation: Alone Feels Safe at Home: Yes Assistive Devices: None Review of Systems Review of Systems: As per HPI, all 10 systems reviewed, all other ROS negative Physical Exam Physical Exam: GENERAL: Comfortable, pleasant, slightly hard of hearing no respiratory distress SKIN: Pallor,, warm HEENT: Pale palpebral conjunctivae, no ptosis, dry buccal mucosa NECK : Supple, no tenderness CHEST : Decreased breath sounds, no tenderness HEART : Tachycardic, diminished S1 S2, no obvious murmurs ABDOMEN: Some distention, no overt tenderness EXTREMITIES : No LE swelling/tenderness, no other conspicuous deformities noted NEUROLOGIC : Coherent, no facial asymmetry, slightly hard of hearing, no other gross focality Results & Data Results & Data ([facility]) Vital Signs (Past 12 Hours) Vital Signs Temp Pulse Pulse Resp BP BP Pulse Ox 06/23/21 00:33 36.5 C 107 H 17 116/69 93 06/23/21 00:18 34.9 C L 104 H 18 123/70 94 06/22/21 23:59 36.5 C 101 H 16 128/63 95 06/22/21 23:42 100 H 19 124/67 96 06/22/21 22:48 106 H 18 100 06/22/21 22:30 35.4 C L 110 H 18 119/62 Laboratory Results Laboratory Results WBC 11.59 K/uL (4.8-10.8) H 06/22/21 22:25 RBC 2.55 M/uL (4.7-6.1) L 06/22/21 22:25 Hgb 7.5 g/dL (14.0-18.0) L 06/22/21 22:25 POC Hgb 6.8 g/dl (14.0-18.0) L* 06/22/21 22:30 Hct 23.8 % (42-52) L 06/22/21: POC Hct 20 % (42-52) L* 06/22/21 22: MCV 93.3 fL (80-100) 06/22/21 22: MCH 29.4 pg (25-34) 06/22/21: MCHC 31.5 g/dL (32-36) L 06/22/21: RDW Std Deviation 53.3 fL (36.4-46.3) H 06/22/21: RDW Coeff of Nicole 15.7 % (11.5-14.5) H 06/22/21: Plt Count 376 K/uL (130-400) 06/22/21: MPV 9.9 fL (7.4-10.4) 06/22/21: Immature Gran % (Auto) 0.8 % 06/22/21: Neut % (Auto) 79.7 % 06/22/21: Lymph % (Auto) 12.3 % 06/22/21: Woodson % (Auto) 7.1 % 06/22/21: Eos % (Auto) 0.0 % 06/22/21: Baso % (Auto) 0.1 % 06/22/21: Neut # (Auto) 9.25 K/uL (1.4-6.5) H 06/22/21: Lymph # (Auto) 1.42 K/uL (1.2-3.4) 06/22/21: Woodson # (Auto) 0.82 K/uL (0.11-0.59) H 06/22/21: Eos # (Auto) 0.00 K/uL (0-0.5) 06/22/21: Baso # (Auto) 0.01 K/uL (0-0.2) 06/22/21: Immature Gran # (Auto) 0.09 K/uL (0.00-0.02) H 06/22/21: Absolute Nucleated RBC 0.02 K/uL (0-0) H 06/22/21: Nucleated RBC % (auto) 0.2 % 06/22/21: PT 72.5 Seconds (9.0-12.0) H 06/22/21 22: INR 8.5 (0.9-1.1) H* 06/22/21 22:25 POC Sodium 137 mmol/L (135-144) 06/22/21 22: Sodium 138 mmol/L (136-145) 06/22/21 22:25 POC Potassium 5.0 mmol/L (3.3-5.0) 06/22/21 22: Potassium 5.1 mmol/L (3.5-5.1) 06/22/21 22:25 POC Chloride 104 mmol/L (101-112) 06/22/21 22: Chloride 104 mmol/L (98-107) 06/22/21 22:25 Carbon Dioxide 16 mmol/L (21-32) L 06/22/21 22: POC Total CO2 16 mmol/L (24-31) L 06/22/21 22: Anion Gap 18 (3-11) H 06/22/21 22:25 POC Anion Gap 23.0 mmol/L (16-25) 06/22/21 22:30 POC BUN 102 mg/dl (7-18) H* 06/22/21 22: BUN 92 mg/dl (6-23) H 06/22/21 22: Creatinine 1.41 mg/dl (0.6-1.4) H 06/22/21 22: POC Creatinine 1.6 mg/dl (0.6-1.3) H 06/22/21 22:30 Est Cr Clr Drug Dosing 43.9 ml/min 06/22/21 22:25 Est GFR ( Amer) 54.5 ml/min 06/22/21 22: Est GFR (Non-Af Amer) 47.0 ml/min 06/22/21 22: BUN/Creatinine Ratio 65.2 (10-20) H 06/22/21 22: Glucose 221 mg/dl (70-99(Fasting)) H 06/22/21 22: POC Glucose (other) 216 mg/dl (70-99) H 06/22/21 22:30 Lactate 10.3 mmol/L (0.4-2.0) H* 06/22/21 22:25 Calcium 9.1 mg/dl (8.5-10.1) 06/22/21 22:25 POC Ioniz Calcium Leo 1.29 mmol/l (1.12-1.32) 06/22/21 22:30 Magnesium 1.9 mg/dl (1.7-2.4) 06/22/21 22:25 Total Bilirubin 0.2 mg/dl (0.2-1.0) 06/22/21 22:25 AST 11 U/L (13-39) L 06/22/21 22:25 ALT 8 U/L (7-52) 06/22/21 22:25 Alkaline Phosphatase 50 U/L (34-104) 06/22/21 22:25 Total Creatine Kinase 47 U/L (30-223) 06/22/21 22:25 Troponin I 0.07 ng/ml (0-0.04) H* 06/22/21 22:25 Total Protein 5.2 gm/dl (6.0-8.3) L 06/22/21 22:25 Albumin 2.6 gm/dl (3.4-5.0) L 06/22/21 22:25 Globulin 2.6 gm/dl (2.5-4.0) 06/22/21 22:25 Albumin/Globulin Ratio 1.0 (0.9-2) 06/22/21 22:25 TSH 5.816 uIu/ml (0.300-4.500) H 06/22/21 22:25 Free T4 0.88 ng/dl (0.61-1.60) 06/22/21 22:25 POC Stool Occult Blood Positive (Negative) A 06/22/21 22:21 SARS-CoV-2, RNA, NAAT NEGATIVE (NEGATIVE) 06/22/21 23:49 Blood Type B Negative 06/22/21 22:25 Blood Type Recheck B Negative 06/22/21 22:46 Antibody Screen NEGATIVE 06/22/21 22: Crossmatch See Detail 06/22/21 22:[address] head initial read: Mild cerebral atrophyand periventricular white matter lowdensityconsistent with chronic small vessel disease and/or senescent changes. There is no evidence of acute large vessel infarct or intracranial hemorrhage. The paranasal sinuses and mastoid air cells are normal. No skull fracture or significant scalp hematoma is identified. There are 2 punctate calcifications in the right side of the jessica. This is nonspecific but could represent small chronic vascular malformation. No hemorrhage or mass identified. CT cervical spine initial read: Mild degenerative disc space narrowing and osteophytosis in the lower cervical spine. The facets and spinous processes are intact. The spinal alignment is normal. No acute cervical spine fracture or traumatic subluxation is seen. Axial soft tissue images showsevere findings at the following levels: C5-6:Disc space narrowing and 3 mmposterior disc bulge and disc marginal osteophyte narrows the canal to 7 mm. There is mild bilateral neural foraminal narrowing. C6-7:Disc space narrowing with 2 mmposterior disc marginal osteophyte. No significant spinal stenosis is seen. There is mild bilateral neural foraminal narrowing. Incidental note is made of severe calcified plaque in the origin of the left subclavian arteryand moderate calcified plaque in both carotid bifurcations, greater on the right than the left CT abdomen pelvis initial read: Scattered patchyairspace infiltrates in the right middle lobe and right lower lobe consistent with pneumonia. No solid organ injuryor free fluid is seen within the abdomen or pelvis. The liver, gallbladder, pancreas, spleen, adrenal glands, and kidneys appear nonacute. Incidental note is made of a 3.5 cmsimple cyst in the lower pole the left kidney. The aorta is mildlycalcified but nondilated. Bowel loops are nondilated. No pneumoperitoneum, free fluid, or acute inflammatorychanges are seen involving the bowel. The appendix is normal. The urinarybladder is partiallydistended and unremarkable. The pelvis is intact. There are mild to moderate degenerative changes in the lumbar spine. No acute fracture or subluxation is seen. Chest x-ray as per my interpretation elevated right hemidiaphragm, interstitial infiltrates EKG as per my interpretation : Rate 110, sinus tachycardia, LAD, LAFB, RBBB anterolateral infarct
[2021-06-23] MEDS ORDERED: MAGNESIUM SULFATE / D5W 1 GM/100 ML BAG IV ONE (01:00)
[2021-06-23] MEDS ORDERED: SODIUM CHLORIDE 0.9% 1000ML 1,000 ML IV ONE (01:00)
[2021-06-23 01:53] LABS: Appearance Urine Clear (Clear); Bilirubin Urine Negative (Negative); Blood Urine Negative (Negative); Color Urine Yellow; Glucose Urine UA Negative (Negative); Ketones Urine Negative (Negative); Leukocyte Esterase Urine Negative (Negative); Nitrite Urine Negative (Negative); Protein Urine Negative (Negative); Urobilinogen Urine Negative (Negative)
[2021-06-23] MEDS ORDERED: GLUCAGON FOR INJ 1 MG VIAL SQ PRN (03:51)
[2021-06-23] MEDS ORDERED: GLUCOSE 40% GEL 15 GM TUBE PO PRN (03:51)
[2021-06-23] MEDS ORDERED: DEXTROSE 50% 50 ML SYRINGE IV PRN (03:51)
[2021-06-23] MEDS ORDERED: ACETAMINOPHEN 325 MG TAB PO PRN (03:51)
[2021-06-23] MEDS ORDERED: CARBOHYDRATES FOR HYPOGLYCEMIA PO PRN (03:51)
[2021-06-23] MEDS ORDERED: GLUCOSE 10 TABS/TUBE PO PRN (03:51)
[2021-06-23] MEDS: INSULIN ASPART PER UNIT SC SCH ×5 (05:48→21:08)
[2021-06-23] MEDS ORDERED: METOPROLOL SUCC 25MG EXT REL TAB PO SCH ×2 (06:25→09:00)
--- NOTE | 2021-06-23 06:41 | XRay Report ---
XR chest 1V portable HISTORY: 80 years-old Male weakness, fall . Acute weakness COMPARISON: CT abdomen and pelvis of same day, chest radiograph 03/24/2020 TECHNIQUE: Portable AP view of the chest FINDINGS: The cardiomediastinal and hilar silhouettes are within normal limits. Left subclavian pacer/AICD. Ret icular nodular opacities are noted within the right midlung and right lung base. No pneumothorax, ple ural effusion or overt pulmonary edema. Degenerative changes of the shoulders and spine. There is a c omminuted and displaced fracture of the proximal left humerus which appears acute to subacute and is new from prior. IMPRESSION: 1. Acute versus subacute comminuted and displaced fracture of the proximal diaphyseal left humerus. 2. Reticular nodular opacities of the right midlung and right lung base are suggestive of an infectio us or inflammatory pneumonitis/bronchiolitis. ACT 112: Negative or not required by law. The above report was generated using voice recognition software. It may contain grammatical, syntax o r spelling errors. Electronically signed by: Mark Badillo M.D. 06/23/2021 6:40 AM
--- NOTE | 2021-06-23 06:56 | CT Scan Report ---
CT head/brain wo con CLINICAL HISTORY: 80 years-old Male with fall. Acute head injury status post fall TECHNIQUE: Multiple axial CT images of the head were obtained without contrast. A dose lowering tech nique was utilized adhering to the principles of ALARA. CT DOSE: 948.04 mGy.cm COMPARISON: CT cervical spine of same day FINDINGS: No acute intracranial hemorrhage, midline shift, hydrocephalus, territorial ischemia or abnormal extr a-axial collection. Age-related involutional changes. White matter hypodensities suggestive of chroni c microvascular ischemic disease. Subcentimeter calcifications are noted within the right paracentral jessica with an apparent 8 mm ill-defined lesion with slightly increased attenuation. No surrounding as sociated vasogenic edema or mass effect is identified. Cerebral vascular calcifications. The calvarium is intact. Prior bilateral lens repair. The paranasal sinuses, mastoid air cells, and m iddle ear cavities are clear. IMPRESSION: 1. No acute intracranial abnormality or calvarial fracture. 2. Partially calcified 8 mm lesion involves the right paracentral jessica, possibly a vascular malformat ion. Correlate with prior imaging if available. ACT 112: Negative or not required by law. The above report was generated using voice recognition software. It may contain grammatical, syntax o r spelling errors. Electronically signed by: Mark Badillo M.D. 06/23/2021 6:55 AM
--- NOTE | 2021-06-23 07:05 | CT Scan Report ---
CT cervical spine wo con CLINICAL HISTORY: 80 years-old Male with fall. Acute head and neck injury status post fall COMPARISON: Head CT of same day TECHNIQUE: Multiple axial CT images of the cervical spine were obtained without contrast. A dose low ering technique was utilized adhering to the principles of ALARA. FINDINGS: Moderate degeneration at C1-C2. There is multilevel intervertebral disc space narrowing, mo derate at C5-C6 and severe at C6 or C7. Spondylitic spurring with posterior disc osteophyte complex f ormations are also most pronounced at these levels. There is moderate multilevel facet arthrosis. The re is no acute fracture or subluxation identified. Mild dextroscoliosis of the cervical spine may be accentuated by positioning. Nuchal ligament calcifications. Multilevel neural foraminal narrowing. Mi ld central canal stenosis at C5-C6. Left subclavian pacer. Emphysema. No pneumothorax. Severe calcified plaque at the origin of the left subclavian artery. Atherosclerotic plaque is noted within the carotid bulbs. IMPRESSION: No acute cervical spine fracture or subluxation. ACT 112: Negative or not required by law. The above report was generated using voice recognition software. It may contain grammatical, syntax o r spelling errors. Electronically signed by: Mark Badillo M.D. 06/23/2021 7:03 AM
[2021-06-23] MEDS: LEVOTHYROXINE SODIUM 100 MCG TABLET PO SCH (08:23)
[2021-06-23] MEDS: ATORVASTATIN 40 MG TAB PO SCH (08:24)
[2021-06-23] MEDS: GABAPENTIN 100 MG CAP PO SCH ×2 (08:24→20:53)
[2021-06-23] MEDS: INSULIN GLARGINE SOLOSTAR 100 UNITS/ML 3 ML PEN SC SCH (08:27)
--- NOTE | 2021-06-23 08:50 | CT Scan Report ---
ABDOMEN AND PELVIS CT WITH IV CONTRAST CT DOSE: 1219.68 mGy.cm HISTORY: Acute generalized abdominal pain with vomiting gi bleed, vomiting TECHNIQUE: Multiaxial CT images of the abdomen and pelvis were performed following the IV administrat ion of 94 cc of Optiray, A dose lowering technique was utilized adhering to the principles of ALARA. COMPARISON STUDY: None. FINDINGS: Left subclavian pacer/AICD. Extensive coronary artery calcifications. Mural fibrofatty atkinson ges with myocardial thickening involves the apical left ventricle suggestive of prior myocardial infa rction. Numerous tree-in-bud nodules are noted within the right lung base. A few solid nodules of the left lung base are also noted measuring up to 6 mm, possibly infectious or inflammatory. No pneumato sis or pneumoperitoneum. 5 mm hypodense focus of the inferior spleen is too small to characterize, however favored to be benig n. Mild to moderate generalized pancreatic atrophy. Unremarkable gallbladder, adrenal glands and live r. Patent portal vein. 3.4 cm cyst of the inferior pole left kidney. There are a few subcentimeter bi lateral renal sinus cysts. No hydronephrosis. Mild prostamegaly. Unremarkable urinary bladder. Athero sclerosis of the aorta without aneurysm. No adenopathy. There is no bowel obstruction. The majority of the colon is decompressed. Normal appendix. There is m ild wall thickening mucosal hyperemia involving the proximal duodenum with trace adjacent inflammator y stranding. Additionally, there is luminal irregularity and narrowing involving the second portion o f the duodenum on image 190 series 3 and also nicely seen on the coronal and sagittal images. Hyperde nse intraluminal material is noted within the third portion of the duodenum. There is diffuse mural f ibrofatty changes involving the duodenum, proximal and mid jejunum. Unremarkable soft tissues. Degene rative changes of the spine, pelvis and hips. Sclerosis of the right iliac wing is noted with a chron ic appearing transversely oriented fracture line on image 382 series 3. Lumbar levoscoliosis. IMPRESSION: 1. Wall thickening with mucosal hyperemia involving the proximal duodenum is noted with trace periduo denal inflammatory stranding. Findings are suggestive of a nonspecific duodenitis versus peptic ulcer disease. Correlation with endoscopy is recommended to exclude a mucosal lesion. This finding was natalie led/faxed to the emergency department at time of dictation. 2. Slightly hyperdense intraluminal material within the third portion of the duodenum, possibly repre sentative of blood products. 3. Moderate mural fibrofatty changes of the duodenum and jejunum may represent a chronic inflammatory process. Correlate with patient history to exclude celiac disease. 4. No bowel obstruction. 5. Numerous tree-in-bud nodules within the right greater than left lung bases are suggestive of an in fectious or inflammatory pneumonitis/bronchiolitis. 6. Additional findings as above. ACT 112: Negative or not required by law. The above report was generated using voice recognition software. It may contain grammatical, syntax o r spelling errors. Electronically signed by: Mark Badillo M.D. 06/23/2021 8:49 AM
[2021-06-23] MEDS ORDERED: ISOSORBIDE MONO EXTENDED REL 30 MG TABCR PO SCH (09:00)
[2021-06-23 09:18] LABS: Basophils # (auto) 0.02 K/uL (0-0.2); Basophils % (auto) 0.1 %; Hematocrit (blood only) 30.6 % (42-52); Hemoglobin 10.4 g/dL (14.0-18.0); Immature Granulocytes # (auto) 0.17 K/uL (0.00-0.02); Lymphocytes # (auto) 2.65 K/uL (1.2-3.4); Lymphocytes % (auto) 15.5 %; Mean Corpuscular Hemoglobin 29.5 pg (25-34); Mean Corpuscular Volume 86.7 fL (80-100); Mean Platelet Volume 9.7 fL (7.4-10.4); Monocytes # (auto) 1.91 K/uL (0.11-0.59); Monocytes % (auto) 11.2 %; Neutrophils # (auto) 12.32 K/uL (1.4-6.5); Neutrophils % (auto) 72.2 %; Nucleated RBC # (auto) 0.02 K/uL (0-0); Nucleated RBC % (auto) 0.1 %; Platelet Count 222 K/uL (130-400); RDW Coefficient of Variation 16.2 % (11.5-14.5); Red Blood Count 3.53 M/uL (4.7-6.1); White Blood Count 17.07 K/uL (4.8-10.8)
[2021-06-23 09:25] LABS: INR 1.2 (0.9-1.1); Prothrombin Time 11.9 Seconds (9.0-12.0)
--- NOTE | 2021-06-23 09:34 | Cardiology Consultation ---
Date of Consultation June 23, 2021 Assessment & Plan (1) Acute GI bleeding: (2) Elevated troponin I level: (3) Ischemic cardiomyopathy: (4) ABLA (acute blood loss anemia): (5) Sinus tachycardia: (6) LV (left ventricular) mural thrombus: Patient admitted for weakness, dizziness, secondary to profound anemia, hbg 6.7 on arrival. INR supratherapeutic and reversed. Hold Coumadin. Await GI evaluation, likely endoscopy in the AM. Hbg now > 10 after 2 units of PRBC's. Continue IV protonix. Minimally Elevated troponin likely in the setting of severe underlying ischemic heart disease with LVEF 20% and profound anemia. No acute EKG changes and no symptoms to suggest ACS. He appears euvolemic. Monitor I+O's. Gentle hydration only. Recent echo on 06/21/21 with stable findings, severely reduced LV function at 20% No evidence of recurrent LV mural thrombus while on coumadin. Will need to consider risk/benefit ratio of resuming coumadin upon discharge. He remains tachycardic this morning. Per review of outpatient/inpatient med list, he is typically on metoprolol 100 mg daily, confirmed by patient and in EPIC. He received 25 mg this morning. Will give an additional 50 mg this morning to equal 75 mg, and plan for home dose 100 mg tomorrow if tolerated. Monitor HR's. He has not been hypotensive since admission. He has underlying dual lead pacemaker/defib. ASA also remains on hold. Continue all other cardiac medications including atorvastatin, isosorbide, metop rolol. Case discussed with Dr. Corrales. He appears optimized from a cardiac standpoint to proceed with endoscopy. Supervising Physician Co-Signing Physician Notes Patient was seen and examined, chart, medications, telemetry reviewed personally. Assessment and plan as above. Hemodynamically improved after transfusion but heart rate still trending higher Will give additional Toprol 25 mg p.o. this evening to complete usual 100 mg daily dose Agree with plans for endoscopy Cardiology will follow History of Present Illness Reason for Consultation: GI bleed; Preop; Elevated troponin Requesting Physician: CATERINA Mendez - GI Attending Physician: Dr. Corrales History of Present Illness Patient is a complex 80 year old male who is known to [facility], following with M. Jonatan, PA-C as an outpatient. Cardiac Problem List: 1. ASCVD 1. History of February 1992 anterior wall myocardial infarction initially treated with streptokinase, without definite evidence of reperfusion. Cardiac catheterization at that time revealed single vessel disease with a very long, ugly 80% LAD stenosis. 2. Status post plain old balloon angioplasty, decreasing the lesion from 80% to 30% with removal of a large thrombus just distal to the stenosis. 3. Presentation with atypical chest pain in October 1995 with nuclear stress testing revealing anterior ischemia, diagnostic cardiac catheterization on November 26, 1995 revealing a 50% mid LAD stenosis with no other significant lesions noted. 4. December 2004 NSTEMI 5. January 16, 2005 diagnostic cardiac catheterization with a total occlusion of the LAD with otherwise nonobstructive coronary artery disease. 6. Status post PCI of the LAD with a Taxus drug eluting stent. 2. Ischemic cardiomyopathy with EF 35-40% in 1995, 25% via January 16, 2005 LV gram, 24% via most recent resting echocardiogram. 3. Chronic systolic congestive heart failure. 1. NYHA Class II-III 2. Narrow QRS duration 3. Status post 03/23/2020 dual chamber rate responsive implantable cardiac defibrillator implantation by Dr. Rubio at [facility]. 4. LV mural thrombus first observed on 01/06/2020, with Coumadin anticoagulation initiated at that time, currently with an INR goal of 2.0 to 2.5 5. Frequent ventricular ectopy, nonsustained ventricular tachycardia 6. Hypertension 7. Dyslipidemia Patient reports feeling well and in normal state of health. He was in to see PCP on 06/21 for preop eval. In March 2021, patient fell and fractured his shoulder, due to ongoing pain, he is to undergo surgical repair Jun 2021. He denied acute complaints at that time. Hbg on 06/21 was 12.7. Last PT/INR was 05/26 at 1.75 Yesterday patient developed sudden weakness, dizziness and coffee ground emesis. He fell to the ground due to weakness, but denied LOC. No chest pain. He reported dyspnea with walking yesterday as well. No fever or chills. No orthopnea, PND or edema. Due to weakness, EMS was summoned and brought to ER for evaluation/treatment. On arrival, found to be significantly anemic with Hbg 6.7. INR was supratherapeutic at > 8. INR was reversed. Started on IV Protonix. Chest xray with possible underlying infectious process and given antibiotic therapy. Concerns for aspiration. He was treated with 2 units PRBC's. Hbg now 10.4. Troponin minimally elevated on arrival, likely due to low Hbg. Patient denied acute chest pain. EKG demosntrated sinus tach without acute changes. At time of consult, patient feeling ok. Notes ongoing weakness, but denies recurrent dizziness, lightheadedness, syncope or near syncope. No chest pain or SOB. No fever, cough, chills. No orthopnea, PND or edema. No recurrent coffee ground emesis. Allergies Allergy/AdvReac Type Severity Reaction Status Date / Time No Known Allergies Allergy Verified 06/22/21 22:21 Home Medications Medication Instructions Recorded Confirmed Type aspirin 81 mg tablet,delayed 81 mg PO QAM 01/14/20 06/22/21 History release (Aspirin Low Dose) cyanocobalamin (vitamin B-12) 1,000 mcg PO QAM 01/14/20 06/22/21 History 1,000 mcg capsule famotidine 20 mg tablet 20 mg PO HS 01/14/20 06/22/21 History isosorbide mononitrate 30 mg 30 mg PO QAM 01/14/20 06/22/21 History tablet,extended release 24 hr metformin 1,000 mg tablet 1,000 mg PO BID 01/14/20 06/22/21 History nitroglycerin 0.4 mg sublingual 0.4 mg SUBLINGUAL UD 01/14/20 06/22/21 History tablet (Nitrostat) atorvastatin 40 mg tablet 40 mg PO DAILY 06/22/21 06/22/21 History doxycycline hyclate 100 mg capsule 100 mg PO BID 06/22/21 06/22/21 History furosemide 40 mg tablet 80 mg PO DAILY 06/22/21 06/22/21 History gabapentin 100 mg capsule 100 mg PO AMHS 06/22/21 06/22/21 History levothyroxine 100 mcg tablet 100 mcg PO DAILYBB 06/22/21 06/22/21 History magnesium oxide 400 mg PO DAILY 06/22/21 06/22/21 History metoprolol succinate 50 mg 50 mg PO DAILY 06/22/21 06/22/21 History tablet,extended release 24 hr omeprazole 40 mg capsule,delayed 40 mg PO DAILYBB 06/22/21 06/22/21 History release warfarin 5 mg tablet See Rx Instructions .ROUTE .COMPLEX 06/22/21 06/22/21 History Patient History Medical History Diabetes mellitus, type 2 History of GI bleed History of left heart catheterization 1991 [facility], NO STENTS 2004 [facility], UNSURE OF STENTS Hyperlipidemia Hypertension Ischemic cardiomyopathy Pt admitted for elective ICD due to ICM. Pt underwent procedure without any complications; monitored overnight and discharged home. 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 Beliefs That Will Affect Care: None Current Living Situation: Alone Current Living Situation Comment: home with nephews and brother nearby Other Information That Helps Us Care for You: No Feels Safe at Home: Yes Safety Concerns: Feels Safe At This Time Assistive Devices: Denture - Upper and Denture - Lower Review of Systems Review of Systems: All systems reviewed & are unremarkable except as noted in HPI & below Physical Exam Constitutional: WD/WN, vitals as above Neck: trachea midline, no thyromegaly Respiratory: normal respiratory effort; no respiratory distress and no cough Auscultation: + diminished lung sounds (but otherwise clear) Cardiovascular: Rate/Rhythm: + tachycardic Heart Sounds: no murmur Vessels: no JVD Extremities: no edema Chest (Breasts): Chest: + pacemaker (site without erythema or drainage) Gastrointestinal (Abdomen): normal bowel sounds, soft, nontender, no hepatosplenomegaly Skin: no rashes, warm and dry Neurologic: PERRL, EOMI, accommodation nl, no face palsy, no dysarthria Psychiatric: A+Ox3, euthymic affect Results & Data ([facility]) Vital Signs (Past 12 Hours) Vital Signs Temp Pulse Pulse Pulse Resp BP BP 06/23/21 06:45 36.6 C 102 H 16 128/80 06/23/21 06:20 36.6 C 105 H 16 126/80 06/23/21 06:04 36.6 C 106 H 16 140/79 06/23/21 05:20 36.6 C 105 H 17 122/80 06/23/21 05:00 36.5 C 108 H 105 H 16 106/80 106/80 06/23/21 04:50 36.5 C 106 H 18 146/79 H 06/23/21 04:35 36.6 C 106 H 18 119/85 06/23/21 04:18 36.6 C 106 H 18 108/74 06/23/21 03:51 105 H 16 06/23/21 03:00 107 H 16 104/73 06/23/21 02:08 36.6 C 105 H 17 119/85 06/23/21 02:03 36.2 C L 105 H 16 114/62 06/23/21 01:03 36.4 C L 106 H 16 114/62 06/23/21 01:00 36.4 C L 106 H 16 114/62 06/23/21 00:33 36.5 C 107 H 17 116/69 06/23/21 00:18 34.9 C L 104 H 18 123/70 06/22/21 23:59 36.5 C 101 H 16 128/63 06/22/21 23:42 100 H 19 124/67 06/22/21 22:48 106 H 18 06/22/21 22:30 35.4 C L 110 H 18 119/62 Pulse Ox 06/23/21 06:45 06/23/21 06:20 06/23/21 06:04 06/23/21 05:20 06/23/21 05:00 06/23/21 04:50 06/23/21 04:35 06/23/21 04:18 06/23/21 03:51 06/23/21 03:00 06/23/21 02:08 06/23/21 02:03 06/23/21 01:03 99 06/23/21 01:00 06/23/21 00:33 93 06/23/21 00:18 94 06/22/21 23:59 95 06/22/21 23:42 96 06/22/21 22:48 100 06/22/21 22:30 Laboratory Results 06/23/21 06/23/21 06/23/21 Range/Units 09:01 09:01 09:01 WBC (4.8-10.8) K/uL RBC (4.7-6.1) M/uL Hgb (14.0-18.0) g/dL POC Hgb (14.0-18.0) g/dl Hct (42-52) % POC Hct (42-52) % MCV (80-100) fL MCH (25-34) pg MCHC (32-36) g/dL RDW Std Deviation (36.4-46.3) fL RDW Coeff of Nicole (11.5-14.5) % Plt Count (130-400) K/uL MPV (7.4-10.4) fL Immature Gran % (Auto) % Neut % (Auto) % Lymph % (Auto) % [place] % (Auto) % Eos % (Auto) % Baso % (Auto) % Neut # (Auto) (1.4-6.5) K/uL Lymph # (Auto) (1.2-3.4) K/uL [place] # (Auto) (0.11-0.59) K/uL Eos # (Auto) (0-0.5) K/uL Baso # (Auto) (0-0.2) K/uL Immature Gran # (Auto) (0.00-0.02) K/uL Absolute Nucleated RBC (0-0) K/uL Nucleated RBC % (auto) % PT 11.9 (9.0-12.0) Seconds INR 1.2 H (0.9-1.1) POC Sodium (135-144) mmol/L Sodium 135 L (136-145) mmol/L POC Potassium (3.3-5.0) mmol/L Potassium 4.3 (3.5-5.1) mmol/L POC Chloride (101-112) mmol/L Chloride 104 (98-107) mmol/L Carbon Dioxide 24 (21-32) mmol/L POC Total CO2 (24-31) mmol/L Anion Gap 7 (3-11) POC Anion Gap (16-25) mmol/L POC BUN (7-18) mg/dl BUN 88 H (6-23) mg/dl Creatinine 1.22 (0.6-1.4) mg/dl POC Creatinine (0.6-1.3) mg/dl Est Cr Clr Drug Dosing 50.7 ml/min Est GFR ( Amer) 65.0 ml/min Est GFR (Non-Af Amer) 56.0 ml/min BUN/Creatinine Ratio 72.1 H (10-20) Glucose 219 H (70-99(Fasting)) mg/dl POC Glucose (70-99) mg/dl POC Glucose (other) (70-99) mg/dl Lactate 2.5 H* (0.4-2.0) mmol/L Calcium 7.9 L (8.5-10.1) mg/dl POC Ioniz Calcium Leo (1.12-1.32) mmol/l Magnesium (1.7-2.4) mg/dl Total Bilirubin (0.2-1.0) mg/dl AST (13-39) U/L ALT (7-52) U/L Alkaline Phosphatase (34-104) U/L Total Creatine Kinase (30-223) U/L Troponin I 0.11 H* (0-0.04) ng/ml Total Protein (6.0-8.3) gm/dl Albumin (3.4-5.0) gm/dl Globulin (2.5-4.0) gm/dl Albumin/Globulin Ratio (0.9-2) Procalcitonin (0-0.5) ng/ml TSH (0.300-4.500) uIu/ml Free T4 (0.61-1.60) ng/dl Urine Color Urine Appearance (Clear) Urine pH (4.5-7.5) Ur Specific [place] (1.000-1.030) Urine Protein (Negative) Urine Glucose (UA) (Negative) Urine Ketones (Negative) Urine Blood (Negative) Urine Nitrite (Negative) Urine Bilirubin (Negative) Urine Urobilinogen (Negative) Ur Leukocyte Esterase (Negative) POC Stool Occult Blood (Negative) SARS-CoV-2, RNA, NAAT (NEGATIVE) Blood Type Blood Type Recheck Antibody Screen Crossmatch 06/23/21 06/23/21 06/23/21 Range/Units 09:01 05:36 03:24 WBC 17.07 H (4.8-10.8) K/uL RBC 3.53 L (4.7-6.1) M/uL Hgb 10.4 L (14.0-18.0) g/dL POC Hgb (14.0-18.0) g/dl Hct 30.6 L (42-52) % POC Hct (42-52) % MCV 86.7 D (80-100) fL MCH 29.5 (25-34) pg MCHC 34.0 (32-36) g/dL RDW Std Deviation 50.0 H (36.4-46.3) fL RDW Coeff of Nicole 16.2 H (11.5-14.5) % Plt Count 222 (130-400) K/uL MPV 9.7 (7.4-10.4) fL Immature Gran % (Auto) 1.0 % Neut % (Auto) 72.2 % Lymph % (Auto) 15.5 % [place] % (Auto) 11.2 % Eos % (Auto) 0.0 % Baso % (Auto) 0.1 % Neut # (Auto) 12.32 H (1.4-6.5) K/uL Lymph # (Auto) 2.65 (1.2-3.4) K/uL [place] # (Auto) 1.91 H (0.11-0.59) K/uL Eos # (Auto) 0.00 (0-0.5) K/uL Baso # (Auto) 0.02 (0-0.2) K/uL Immature Gran # (Auto) 0.17 H (0.00-0.02) K/uL Absolute Nucleated RBC 0.02 H (0-0) K/uL Nucleated RBC % (auto) 0.1 % PT (9.0-12.0) Seconds INR (0.9-1.1) POC Sodium (135-144) mmol/L Sodium (136-145) mmol/L POC Potassium (3.3-5.0) mmol/L Potassium (3.5-5.1) mmol/L POC Chloride (101-112) mmol/L Chloride (98-107) mmol/L Carbon Dioxide (21-32) mmol/L POC Total CO2 (24-31) mmol/L Anion Gap (3-11) POC Anion Gap (16-25) mmol/L POC BUN (7-18) mg/dl BUN (6-23) mg/dl Creatinine (0.6-1.4) mg/dl POC Creatinine (0.6-1.3) mg/dl Est Cr Clr Drug Dosing ml/min Est GFR ( Amer) ml/min Est GFR (Non-Af Amer) ml/min BUN/Creatinine Ratio (10-20) Glucose (70-99(Fasting)) mg/dl POC Glucose 171 H (70-99) mg/dl POC Glucose (other) (70-99) mg/dl Lactate (0.4-2.0) mmol/L Calcium (8.5-10.1) mg/dl POC Ioniz Calcium Leo (1.12-1.32) mmol/l Magnesium (1.7-2.4) mg/dl Total Bilirubin (0.2-1.0) mg/dl AST (13-39) U/L ALT (7-52) U/L Alkaline Phosphatase (34-104) U/L Total Creatine Kinase (30-223) U/L Troponin I (0-0.04) ng/ml Total Protein (6.0-8.3) gm/dl Albumin (3.4-5.0) gm/dl Globulin (2.5-4.0) gm/dl Albumin/Globulin Ratio (0.9-2) Procalcitonin 0.10 (0-0.5) ng/ml TSH (0.300-4.500) uIu/ml Free T4 (0.61-1.60) ng/dl Urine Color Urine Appearance (Clear) Urine pH (4.5-7.5) Ur Specific [place] (1.000-1.030) Urine Protein (Negative) Urine Glucose (UA) (Negative) Urine Ketones (Negative) Urine Blood (Negative) Urine Nitrite (Negative) Urine Bilirubin (Negative) Urine Urobilinogen (Negative) Ur Leukocyte Esterase (Negative) POC Stool Occult Blood (Negative) SARS-CoV-2, RNA, NAAT (NEGATIVE) Blood Type Blood Type Recheck Antibody Screen Crossmatch 06/23/21 06/23/21 06/23/21 Range/Units 03:24 03:24 01:46 WBC (4.8-10.8) K/uL RBC (4.7-6.1) M/uL Hgb (14.0-18.0) g/dL POC Hgb (14.0-18.0) g/dl Hct (42-52) % POC Hct (42-52) % MCV (80-100) fL MCH (25-34) pg MCHC (32-36) g/dL RDW Std Deviation (36.4-46.3) fL RDW Coeff of Nicole (11.5-14.5) % Plt Count (130-400) K/uL MPV (7.4-10.4) fL Immature Gran % (Auto) % Neut % (Auto) % Lymph % (Auto) % [place] % (Auto) % Eos % (Auto) % Baso % (Auto) % Neut # (Auto) (1.4-6.5) K/uL Lymph # (Auto) (1.2-3.4) K/uL [place] # (Auto) (0.11-0.59) K/uL Eos # (Auto) (0-0.5) K/uL Baso # (Auto) (0-0.2) K/uL Immature Gran # (Auto) (0.00-0.02) K/uL Absolute Nucleated RBC (0-0) K/uL Nucleated RBC % (auto) % PT (9.0-12.0) Seconds INR (0.9-1.1) POC Sodium (135-144) mmol/L Sodium (136-145) mmol/L POC Potassium (3.3-5.0) mmol/L Potassium (3.5-5.1) mmol/L POC Chloride (101-112) mmol/L Chloride (98-107) mmol/L Carbon Dioxide (21-32) mmol/L POC Total CO2 (24-31) mmol/L Anion Gap (3-11) POC Anion Gap (16-25) mmol/L POC BUN (7-18) mg/dl BUN (6-23) mg/dl Creatinine (0.6-1.4) mg/dl POC Creatinine (0.6-1.3) mg/dl Est Cr Clr Drug Dosing ml/min Est GFR ( Amer) ml/min Est GFR (Non-Af Amer) ml/min BUN/Creatinine Ratio (10-20) Glucose (70-99(Fasting)) mg/dl POC Glucose (70-99) mg/dl POC Glucose (other) (70-99) mg/dl Lactate 3.6 H* (0.4-2.0) mmol/L Calcium (8.5-10.1) mg/dl POC Ioniz Calcium Leo (1.12-1.32) mmol/l Magnesium (1.7-2.4) mg/dl Total Bilirubin (0.2-1.0) mg/dl AST (13-39) U/L ALT (7-52) U/L Alkaline Phosphatase (34-104) U/L Total Creatine Kinase (30-223) U/L Troponin I 0.09 H* (0-0.04) ng/ml Total Protein (6.0-8.3) gm/dl Albumin (3.4-5.0) gm/dl Globulin (2.5-4.0) gm/dl Albumin/Globulin Ratio (0.9-2) Procalcitonin (0-0.5) ng/ml TSH (0.300-4.500) uIu/ml Free T4 (0.61-1.60) ng/dl Urine Color Yellow Urine Appearance Clear (Clear) Urine pH 5.0 (4.5-7.5) Ur Specific [place] 1.040 H (1.000-1.030) Urine Protein Negative (Negative) Urine Glucose (UA) Negative (Negative) Urine Ketones Negative (Negative) Urine Blood Negative (Negative) Urine Nitrite Negative (Negative) Urine Bilirubin Negative (Negative) Urine Urobilinogen Negative (Negative) Ur Leukocyte Esterase Negative (Negative) POC Stool Occult Blood (Negative) SARS-CoV-2, RNA, NAAT (NEGATIVE) Blood Type Blood Type Recheck Antibody Screen Crossmatch 06/22/21 06/22/21 06/22/21 Range/Units 23:49 22:46 22:30 WBC (4.8-10.8) K/uL RBC (4.7-6.1) M/uL Hgb (14.0-18.0) g/dL POC Hgb 6.8 L* (14.0-18.0) g/dl Hct (42-52) % POC Hct 20 L* (42-52) % MCV (80-100) fL MCH (25-34) pg MCHC (32-36) g/dL RDW Std Deviation (36.4-46.3) fL RDW Coeff of Nicole (11.5-14.5) % Plt Count (130-400) K/uL MPV (7.4-10.4) fL Immature Gran % (Auto) % Neut % (Auto) % Lymph % (Auto) % [place] % (Auto) % Eos % (Auto) % Baso % (Auto) % Neut # (Auto) (1.4-6.5) K/uL Lymph # (Auto) (1.2-3.4) K/uL [place] # (Auto) (0.11-0.59) K/uL Eos # (Auto) (0-0.5) K/uL Baso # (Auto) (0-0.2) K/uL Immature Gran # (Auto) (0.00-0.02) K/uL Absolute Nucleated RBC (0-0) K/uL Nucleated RBC % (auto) % PT (9.0-12.0) Seconds INR (0.9-1.1) POC Sodium 137 (135-144) mmol/L Sodium (136-145) mmol/L POC Potassium 5.0 (3.3-5.0) mmol/L Potassium (3.5-5.1) mmol/L POC Chloride 104 (101-112) mmol/L Chloride (98-107) mmol/L Carbon Dioxide (21-32) mmol/L POC Total CO2 16 L (24-31) mmol/L Anion Gap (3-11) POC Anion Gap 23.0 (16-25) mmol/L POC BUN 102 H* (7-18) mg/dl BUN (6-23) mg/dl Creatinine (0.6-1.4) mg/dl POC Creatinine 1.6 H (0.6-1.3) mg/dl Est Cr Clr Drug Dosing ml/min Est GFR ( Amer) ml/min Est GFR (Non-Af Amer) ml/min BUN/Creatinine Ratio (10-20) Glucose (70-99(Fasting)) mg/dl POC Glucose (70-99) mg/dl POC Glucose (other) 216 H (70-99) mg/dl Lactate (0.4-2.0) mmol/L Calcium (8.5-10.1) mg/dl POC Ioniz Calcium Leo 1.29 (1.12-1.32) mmol/l Magnesium (1.7-2.4) mg/dl Total Bilirubin (0.2-1.0) mg/dl AST (13-39) U/L ALT (7-52) U/L Alkaline Phosphatase (34-104) U/L Total Creatine Kinase (30-223) U/L Troponin I (0-0.04) ng/ml Total Protein (6.0-8.3) gm/dl Albumin (3.4-5.0) gm/dl Globulin (2.5-4.0) gm/dl Albumin/Globulin Ratio (0.9-2) Procalcitonin (0-0.5) ng/ml TSH (0.300-4.500) uIu/ml Free T4 (0.61-1.60) ng/dl Urine Color Urine Appearance (Clear) Urine pH (4.5-7.5) Ur Specific [place] (1.000-1.030) Urine Protein (Negative) Urine Glucose (UA) (Negative) Urine Ketones (Negative) Urine Blood (Negative) Urine Nitrite (Negative) Urine Bilirubin (Negative) Urine Urobilinogen (Negative) Ur Leukocyte Esterase (Negative) POC Stool Occult Blood (Negative) SARS-CoV-2, RNA, NAAT NEGATIVE (NEGATIVE) Blood Type Blood Type Recheck B Negative Antibody Screen Crossmatch 06/22/21 06/22/21 06/22/21 Range/Units 22:25 22:25 22:25 WBC (4.8-10.8) K/uL RBC (4.7-6.1) M/uL Hgb (14.0-18.0) g/dL POC Hgb (14.0-18.0) g/dl Hct (42-52) % POC Hct (42-52) % MCV (80-100) fL MCH (25-34) pg MCHC (32-36) g/dL RDW Std Deviation (36.4-46.3) fL RDW Coeff of Nicole (11.5-14.5) % Plt Count (130-400) K/uL MPV (7.4-10.4) fL Immature Gran % (Auto) % Neut % (Auto) % Lymph % (Auto) % [place] % (Auto) % Eos % (Auto) % Baso % (Auto) % Neut # (Auto) (1.4-6.5) K/uL Lymph # (Auto) (1.2-3.4) K/uL [place] # (Auto) (0.11-0.59) K/uL Eos # (Auto) (0-0.5) K/uL Baso # (Auto) (0-0.2) K/uL Immature Gran # (Auto) (0.00-0.02) K/uL Absolute Nucleated RBC (0-0) K/uL Nucleated RBC % (auto) % PT (9.0-12.0) Seconds INR (0.9-1.1) POC Sodium (135-144) mmol/L Sodium 138 (136-145) mmol/L POC Potassium (3.3-5.0) mmol/L Potassium 5.1 (3.5-5.1) mmol/L POC Chloride (101-112) mmol/L Chloride 104 (98-107) mmol/L Carbon Dioxide 16 L (21-32) mmol/L POC Total CO2 (24-31) mmol/L Anion Gap 18 H (3-11) POC Anion Gap (16-25) mmol/L POC BUN (7-18) mg/dl BUN 92 H (6-23) mg/dl Creatinine 1.41 H (0.6-1.4) mg/dl POC Creatinine (0.6-1.3) mg/dl Est Cr Clr Drug Dosing 43.9 ml/min Est GFR ( Amer) 54.5 ml/min Est GFR (Non-Af Amer) 47.0 ml/min BUN/Creatinine Ratio 65.2 H (10-20) Glucose 221 H (70-99(Fasting)) mg/dl POC Glucose (70-99) mg/dl POC Glucose (other) (70-99) mg/dl Lactate 10.3 H* (0.4-2.0) mmol/L Calcium 9.1 (8.5-10.1) mg/dl POC Ioniz Calcium Leo (1.12-1.32) mmol/l Magnesium 1.9 (1.7-2.4) mg/dl Total Bilirubin 0.2 (0.2-1.0) mg/dl AST 11 L (13-39) U/L ALT 8 (7-52) U/L Alkaline Phosphatase 50 (34-104) U/L Total Creatine Kinase 47 (30-223) U/L Troponin I 0.07 H* (0-0.04) ng/ml Total Protein 5.2 L (6.0-8.3) gm/dl Albumin 2.6 L (3.4-5.0) gm/dl Globulin 2.6 (2.5-4.0) gm/dl Albumin/Globulin Ratio 1.0 (0.9-2) Procalcitonin (0-0.5) ng/ml TSH 5.816 H (0.300-4.500) uIu/ml Free T4 0.88 (0.61-1.60) ng/dl Urine Color Urine Appearance (Clear) Urine pH (4.5-7.5) Ur Specific [place] (1.000-1.030) Urine Protein (Negative) Urine Glucose (UA) (Negative) Urine Ketones (Negative) Urine Blood (Negative) Urine Nitrite (Negative) Urine Bilirubin (Negative) Urine Urobilinogen (Negative) Ur Leukocyte Esterase (Negative) POC Stool Occult Blood (Negative) SARS-CoV-2, RNA, NAAT (NEGATIVE) Blood Type Blood Type Recheck Antibody Screen Crossmatch 06/22/21 06/22/21 06/22/21 Range/Units 22:25 22:25 22:25 WBC 11.59 H (4.8-10.8) K/uL RBC 2.55 L (4.7-6.1) M/uL Hgb 7.5 L (14.0-18.0) g/dL POC Hgb (14.0-18.0) g/dl Hct 23.8 L (42-52) % POC Hct (42-52) % MCV 93.3 (80-100) fL MCH 29.4 (25-34) pg MCHC 31.5 L (32-36) g/dL RDW Std Deviation 53.3 H (36.4-46.3) fL RDW Coeff of Nicole 15.7 H (11.5-14.5) % Plt Count 376 (130-400) K/uL MPV 9.9 (7.4-10.4) fL Immature Gran % (Auto) 0.8 % Neut % (Auto) 79.7 % Lymph % (Auto) 12.3 % [place] % (Auto) 7.1 % Eos % (Auto) 0.0 % Baso % (Auto) 0.1 % Neut # (Auto) 9.25 H (1.4-6.5) K/uL Lymph # (Auto) 1.42 (1.2-3.4) K/uL [place] # (Auto) 0.82 H (0.11-0.59) K/uL Eos # (Auto) 0.00 (0-0.5) K/uL Baso # (Auto) 0.01 (0-0.2) K/uL Immature Gran # (Auto) 0.09 H (0.00-0.02) K/uL Absolute Nucleated RBC 0.02 H (0-0) K/uL Nucleated RBC % (auto) 0.2 % PT 72.5 H (9.0-12.0) Seconds INR 8.5 H* (0.9-1.1) POC Sodium (135-144) mmol/L Sodium (136-145) mmol/L POC Potassium (3.3-5.0) mmol/L Potassium (3.5-5.1) mmol/L POC Chloride (101-112) mmol/L Chloride (98-107) mmol/L Carbon Dioxide (21-32) mmol/L POC Total CO2 (24-31) mmol/L Anion Gap (3-11) POC Anion Gap (16-25) mmol/L POC BUN (7-18) mg/dl BUN (6-23) mg/dl Creatinine (0.6-1.4) mg/dl POC Creatinine (0.6-1.3) mg/dl Est Cr Clr Drug Dosing ml/min Est GFR ( Amer) ml/min Est GFR (Non-Af Amer) ml/min BUN/Creatinine Ratio (10-20) Glucose (70-99(Fasting)) mg/dl POC Glucose (70-99) mg/dl POC Glucose (other) (70-99) mg/dl Lactate (0.4-2.0) mmol/L Calcium (8.5-10.1) mg/dl POC Ioniz Calcium Leo (1.12-1.32) mmol/l Magnesium (1.7-2.4) mg/dl Total Bilirubin (0.2-1.0) mg/dl AST (13-39) U/L ALT (7-52) U/L Alkaline Phosphatase (34-104) U/L Total Creatine Kinase (30-223) U/L Troponin I (0-0.04) ng/ml Total Protein (6.0-8.3) gm/dl Albumin (3.4-5.0) gm/dl Globulin (2.5-4.0) gm/dl Albumin/Globulin Ratio (0.9-2) Procalcitonin (0-0.5) ng/ml TSH (0.300-4.500) uIu/ml Free T4 (0.61-1.60) ng/dl Urine Color Urine Appearance (Clear) Urine pH (4.5-7.5) Ur Specific [place] (1.000-1.030) Urine Protein (Negative) Urine Glucose (UA) (Negative) Urine Ketones (Negative) Urine Blood (Negative) Urine Nitrite (Negative) Urine Bilirubin (Negative) Urine Urobilinogen (Negative) Ur Leukocyte Esterase (Negative) POC Stool Occult Blood (Negative) SARS-CoV-2, RNA, NAAT (NEGATIVE) Blood Type B Negative Blood Type Recheck Antibody Screen NEGATIVE Crossmatch See Detail 06/22/21 Range/Units 22:21 WBC (4.8-10.8) K/uL RBC (4.7-6.1) M/uL Hgb (14.0-18.0) g/dL POC Hgb (14.0-18.0) g/dl Hct (42-52) % POC Hct (42-52) % MCV (80-100) fL MCH (25-34) pg MCHC (32-36) g/dL RDW Std Deviation (36.4-46.3) fL RDW Coeff of Nicole (11.5-14.5) % Plt Count (130-400) K/uL MPV (7.4-10.4) fL Immature Gran % (Auto) % Neut % (Auto) % Lymph % (Auto) % [place] % (Auto) % Eos % (Auto) % Baso % (Auto) % Neut # (Auto) (1.4-6.5) K/uL Lymph # (Auto) (1.2-3.4) K/uL P[place] # (Auto) (0.11-0.59) K/uL Eos # (Auto) (0-0.5) K/uL Baso # (Auto) (0-0.2) K/uL Immature Gran # (Auto) (0.00-0.02) K/uL Absolute Nucleated RBC (0-0) K/uL Nucleated RBC % (auto) % PT (9.0-12.0) Seconds INR (0.9-1.1) POC Sodium (135-144) mmol/L Sodium (136-145) mmol/L POC Potassium (3.3-5.0) mmol/L Potassium (3.5-5.1) mmol/L POC Chloride (101-112) mmol/L Chloride (98-107) mmol/L Carbon Dioxide (21-32) mmol/L POC Total CO2 (24-31) mmol/L Anion Gap (3-11) POC Anion Gap (16-25) mmol/L POC BUN (7-18) mg/dl BUN (6-23) mg/dl Creatinine (0.6-1.4) mg/dl POC Creatinine (0.6-1.3) mg/dl Est Cr Clr Drug Dosing ml/min Est GFR ( Amer) ml/min Est GFR (Non-Af Amer) ml/min BUN/Creatinine Ratio (10-20) Glucose (70-99(Fasting)) mg/dl POC Glucose (70-99) mg/dl POC Glucose (other) (70-99) mg/dl Lactate (0.4-2.0) mmol/L Calcium (8.5-10.1) mg/dl POC Ioniz Calcium Leo (1.12-1.32) mmol/l Magnesium (1.7-2.4) mg/dl Total Bilirubin (0.2-1.0) mg/dl AST (13-39) U/L ALT (7-52) U/L Alkaline Phosphatase (34-104) U/L Total Creatine Kinase (30-223) U/L Troponin I (0-0.04) ng/ml Total Protein (6.0-8.3) gm/dl Albumin (3.4-5.0) gm/dl Globulin (2.5-4.0) gm/dl Albumin/Globulin Ratio (0.9-2) Procalcitonin (0-0.5) ng/ml TSH (0.300-4.500) uIu/ml Free T4 (0.61-1.60) ng/dl Urine Color Urine Appearance (Clear) Urine pH (4.5-7.5) Ur Specific [place] (1.000-1.030) Urine Protein (Negative) Urine Glucose (UA) (Negative) Urine Ketones (Negative) Urine Blood (Negative) Urine Nitrite (Negative) Urine Bilirubin (Negative) Urine Urobilinogen (Negative) Ur Leukocyte Esterase (Negative) POC Stool Occult Blood Positive A (Negative) SARS-CoV-2, RNA, NAAT (NEGATIVE) Blood Type Blood Type Recheck Antibody Screen Crossmatch Diagnostic Findings Telemetry reviewed: Sinus tach with HR's ranging 100-110, occ PVC's and couplets noted EKG on admission: Sinus tachycardia with PVC Right bundle branch block Old Inferior infarct Old anterolateral infarct No significant change from previous Chest xray on admission: IMPRESSION: 1. Acute versus subacute comminuted and displaced fracture of the proximal diaphyseal left humerus. 2. Reticular nodular opacities of the right midlung and right lung base are suggestive of an infectious or inflammatory pneumonitis/bronchiolitis. Head CT report reviewed: IMPRESSION: 1. No acute intracranial abnormality or calvarial fracture. 2. Partially calcified 8 mm lesion involves the right paracentral jessica, possibly a vascular malformation. Correlate with prior imaging if available. Cervical spinal CT: IMPRESSION: No acute cervical spine fracture or subluxation. Echo report reviewed dated 06/21/21 as outpatient at [facility]: There is an extensive area of myocardial thinning and akinesis involving the anterior, anteroseptal, inferoseptal, inferior and apical [place]. LVEF is severely reduced at < 20%. LV diastolic function is severely abnormal (grade III). No significant valvular pathology. Findings are similar to prior study in Apr 2020. No LV mural thrombus noted. Medications Administered Current Inpatient Medications Acetaminophen (Acetaminophen 325 Mg Tab) 650 mg PO Q4H PRN PRN Reason: Pain or Fever Stop: 07/23/21 03:50 Atorvastatin Calcium (Atorvastatin 40 Mg Tab) 40 mg PO DAILY JOVANY Stop: 07/23/21 08:59 Last Admin: 06/23/21 08:24 Dose: 40 mg Documented by: Dextrose (Dextrose 50% 50 Ml Syringe) 25 - 50 ml IV UD PRN; Protocol PRN Reason: Hypoglycemia Protocol Stop: 07/23/21 03:50 Gabapentin (Gabapentin 100 Mg Cap) 100 mg PO AMHS [facility] Stop: 07/23/21 08:59 Last Admin: 06/23/21 08:24 Dose: 100 mg Documented by: Glucagon (Glucagon For Inj 1 Mg Vial) 1 mg SQ UD PRN; Protocol PRN Reason: Hypoglycemia Protocol Stop: 07/23/21 03:50 Glucose (Glucose 10 Tabs/Tube) 4 - 8 tabs PO UD PRN; Protocol PRN Reason: Hypoglycemia Protocol Stop: 07/23/21 03:50 Glucose (Glucose 40% Gel 15 Gm Tube) 15 - 30 gm PO UD PRN; Protocol PRN Reason: Hypoglycemia Protocol Stop: 07/23/21 03:50 Pantoprazole Sodium 40 mg/ (Dextrose) 100 mls @ 20 mls/hr IV Q5H [facility] Stop: 07/22/21 22:59 Last Admin: 06/23/21 10:10 Dose: 8 mg/hr, 20 mls/hr Documented by: Sodium Chloride (Nss 1000ml) 1,000 mls @ 50 mls/hr IV .Q20H ONE Stop: 06/23/21 20:59 Last Admin: 06/23/21 05:02 Dose: 50 mls/hr Documented by: Promethazine HCl 12.5 mg/ (Sodium Chloride) 50.5 mls @ 202 mls/hr IV Q6H PRN PRN Reason: Nausea And Vomiting Stop: 07/23/21 03:50 Insulin Aspart (Insulin Aspart Per Unit) 0 units SC ACHS [facility] Stop: 07/23/21 03:50 Last Admin: 06/23/21 08:24 Dose: Not Given Documented by: Insulin Glargine (Insulin Glargine Solostar 100 Units/Ml 3 Ml Pen) 5 units SC DAILY [facility] Stop: 07/23/21 08:59 Last Admin: 06/23/21 08:27 Dose: 5 units Documented by: Isosorbide Mononitrate (Isosorbide [place] Extended Rel 30 Mg Tabcr) 30 mg PO QAM [facility] Stop: 07/24/21 08:59 Levothyroxine Sodium (Levothyroxine Sodium 100 Mcg Tablet) 100 mcg PO DAILYBB [facility] Stop: 07/23/21 06:29 Last Admin: 06/23/21 08:23 Dose: 100 mcg Documented by: Metoprolol Succinate (Metoprolol Succ 50mg Ext Rel Tab) 100 mg PO DAILY [facility] Stop: 07/24/21 08:59 Miscellaneous (Carbohydrates For Hypoglycemia ) 15 - 30 gm PO UD PRN PRN Reason: Hypoglycemia Protocol Stop: 07/23/21 03:50
[2021-06-23 09:42] LABS: BUN Creatinine Ratio 72.1 (10-20); Calcium 7.9 mg/dl (8.5-10.1); Creatinine Clr Calc Pharmacy 50.7 ml/min; Potassium 4.3 mmol/L (3.5-5.1)
--- NOTE | 2021-06-23 09:45 | XRay Report ---
XR shoulder LT min 2V routine HISTORY: 80 years-old Male fx acute pain of the left upper cavity COMPARISON: Chest radiograph 06/22/2021, chest radiographs 03/24/2020. TECHNIQUE: 3 views of the left shoulder FINDINGS: Left subclavian pacer/AICD. The left AC joint is pathologically widened measuring 2.3 cm. There is an acute and comminuted fractures involving the surgical neck and proximal diaphyseal left humerus. The re are several millimeters of impaction with lateral displacement measuring up to 1.5 cm. Volar displ acement measures up to 1.3 cm. No dislocation of the glenohumeral joint identified. IMPRESSION: 1. Acute, comminuted, displaced and impacted fracture of the left proximal humerus. 2. Chronic pathologic widening of the left AC joint. ACT 112: Negative or not required by law. The above report was generated using voice recognition software. It may contain grammatical, syntax o r spelling errors. Electronically signed by: Mark Badillo M.D. 06/23/2021 9:43 AM
[2021-06-23 09:54] LABS: Troponin I 0.11 ng/ml (0-0.04)
--- NOTE | 2021-06-23 10:07 | Gastrointestinal Consultation ---
Date of Consultation June 23, 2021 Assessment & Plan (1) Acute GI bleeding: (2) Supratherapeutic INR: Pt is a 80 y/o male seen for symptom of UGI bleeding, symptomatic anemia in setting of supratherapuetic INR on Coumadin for hx of LV thrombus. CT abd/pelvis w signs of duodenal wall thickening, hyperemia, stranding. Hx of esophagitis and gastritis noted on previous EGDs. Blood ct improved after 2U PRBC transfusion. He does have significant cardiac hx as noted above including CAD, ischemic cardiomyopathy w EF 25-30%, LV thrombus. Troponin is elevated. Also noted he has signs of pneumonitis and L humeral fracture. - Monitor blood ct and transfuse prn - F/U repeat INR today - Keep NPO - Continue PPI gtt - Consult Cardiology - Pneumonitis management per primary team - Needs to be medically optimized today, plan for EGD evaluation tomorrow Supervising Physician Co-Signing Physician Notes 80 yo male with chf, left sided ventricular thrombus on coumadin, admitted with reports of anemia and supratherapeutic INR (INR 8.9), with incidental findings of a left sided humeral fracture and also CT evidence of duodenitis. PE - alert and oriented, no respiratory distress noted, abd soft nt nd No overt gi bleeding noted Labs reviewed Needs INR to be corrected Medical optimization of pneumonitis, cardiology input given troponin elevation. Possible EGD tomorrow after IV PPI if INR is improved to less than 2. History of Present Illness Reason for Consultation: GI bleed Requesting Physician: Dr. Yen Vega Attending Physician: Dr. Rand Garner History of Present Illness Pt is a 80 yo male w PMHx of chronic systolic heart failure secondary to ischemic cardiomyopathy (EF less than 20%, TTE 2021) status post ICD CAD status post stent, history LV thrombus on Coumadin, hypertension, hyperlipidemia, COPD, BPH, DM2 on oral medications, CRI (baseline creatinine 1.3 ), chronic anemia (baseline hemoglobin 12 to 13), hypothyroidism who presented overnight with symptoms of weakness. He felt dizzy and fell on the ground. He denies fever, chills, CP, SOB. He does have n/v, and noticed coffee ground emesis, also black stools in the last 2 days. He denies abd pain. No signs of GI bleeding since ED admission. On eval, noted to be anemic w Hgb of 6 which improved to 10 after 2U PRBC transfusion. INR was supratherapeutic at 8. BUN 100s. He was given K centra and Vit K, AM INR pending Troponin noted to be up. COVID negative CT abd/pelvis w IV contrast showed wall thickening with mucosal hyperemia involving the proximal duodenum is noted with trace periduodenal inflammatory stranding. Findings are suggestive of a nonspecific duodenitis versus peptic ulcer disease. Correlation with endoscopy is recommended to exclude a mucosal lesion. There are also slightly hyperdense intraluminal material within the third portion of the duodenum, possibly correspondence representative of blood products, moderate mural fibrofatty changes of the duodenum and jejunum may represent a chronic inflammatory process. Correlate with patient history to exclude celiac disease. No bowel obstructions noted. Previous EGD results showed signs of esophagitis and gastritis. He denies any uses of steroids, NSAIDs, ETOH, tobacco. Denies hx of GI surgeries, or GI malignancies. Other imaging studies such as CXR and shoulder xray showed signs of pneumonitis and L humerus fracture. Allergies Allergy/AdvReac Type Severity Reaction Status Date / Time No Known Allergies Allergy Verified 06/22/21 22:21 Home Medications Medication Instructions Recorded Confirmed Type aspirin 81 mg tablet,delayed 81 mg PO QAM 01/14/20 06/22/21 History release (Aspirin Low Dose) cyanocobalamin (vitamin B-12) 1,000 mcg PO QAM 01/14/20 06/22/21 History 1,000 mcg capsule famotidine 20 mg tablet 20 mg PO HS 01/14/20 06/22/21 History isosorbide mononitrate 30 mg 30 mg PO QAM 01/14/20 06/22/21 History tablet,extended release 24 hr metformin 1,000 mg tablet 1,000 mg PO BID 01/14/20 06/22/21 History nitroglycerin 0.4 mg sublingual 0.4 mg SUBLINGUAL UD 01/14/20 06/22/21 History tablet (Nitrostat) atorvastatin 40 mg tablet 40 mg PO DAILY 06/22/21 06/22/21 History doxycycline hyclate 100 mg capsule 100 mg PO BID 06/22/21 06/22/21 History furosemide 40 mg tablet 80 mg PO DAILY 06/22/21 06/22/21 History gabapentin 100 mg capsule 100 mg PO AMHS 06/22/21 06/22/21 History levothyroxine 100 mcg tablet 100 mcg PO DAILYBB 06/22/21 06/22/21 History magnesium oxide 400 mg PO DAILY 06/22/21 06/22/21 History metoprolol succinate 50 mg 50 mg PO DAILY 06/22/21 06/22/21 History tablet,extended release 24 hr omeprazole 40 mg capsule,delayed 40 mg PO DAILYBB 06/22/21 06/22/21 History release warfarin 5 mg tablet See Rx Instructions .ROUTE .COMPLEX 06/22/21 06/22/21 History Patient History Medical History (Updated 06/23/21 @ 10:42 by Elvia Mcleod PA-C) Diabetes mellitus, type 2 History of GI bleed History of left heart catheterization 1991 [place], NO STENTS 2004 [facility], UNSURE OF STENTS Hyperlipidemia Hypertension Ischemic cardiomyopathy Pt admitted for elective ICD due to ICM. Pt underwent procedure without any complications; monitored overnight and discharged home. Osteoarthritis Poor historian Sinus bradycardia Surgical History History of adenoidectomy History of carpal tunnel release of both wrists History of cataract surgery BOTH EYES History of colonoscopy 5 YEARS AGO History of tonsillectomy History of tooth extraction Social History Smoking Status: Never smoker Hx Alcohol Use: Yes Alcohol type: beer Hx Substance Use: No Preferred Language: Nigerien Communication Ability: Effective Threshing Operator Required: No Beliefs That Will Affect Care: None Current Living Situation: Alone Feels Safe at Home: Yes Assistive Devices: None Review of Systems Review of Systems: All systems reviewed & are unremarkable except as noted in HPI & below Physical Exam Constitutional: WD/WN, vitals as above well groomed, cooperative and comfortable Eyes: PERRL, conjunctivae normal, anicteric sclerae ENMT: external ear and nose normal, oropharynx normal Dried blood on tip of nose Respiratory: Diminished overall lung sounds. Cardiovascular: RRR, no murmur, no edema Gastrointestinal (Abdomen): normal bowel sounds, soft, nontender, no hepatosplenomegaly Skin: no rashes, warm and dry no jaundice Neurologic: Motor/Sensory: no asterixis Psychiatric: A+Ox3, euthymic affect Lymphatic: no lymphedema Results & Data ([facility]) Vital Signs (Past 12 Hours) Vital Signs Temp Pulse Pulse Pulse Resp BP BP 06/23/21 06:45 36.6 C 102 H 16 128/80 06/23/21 06:20 36.6 C 105 H 16 126/80 06/23/21 06:04 36.6 C 106 H 16 140/79 06/23/21 05:20 36.6 C 105 H 17 122/80 06/23/21 05:00 36.5 C 108 H 105 H 16 106/80 106/80 06/23/21 04:50 36.5 C 106 H 18 146/79 H 06/23/21 04:35 36.6 C 106 H 18 119/85 06/23/21 04:18 36.6 C 106 H 18 108/74 06/23/21 03:51 105 H 16 06/23/21 03:00 107 H 16 104/73 06/23/21 02:08 36.6 C 105 H 17 119/85 06/23/21 02:03 36.2 C L 105 H 16 114/62 06/23/21 01:03 36.4 C L 106 H 16 114/62 06/23/21 01:00 36.4 C L 106 H 16 114/62 06/23/21 00:33 36.5 C 107 H 17 116/69 06/23/21 00:18 34.9 C L 104 H 18 123/70 06/22/21 23:59 36.5 C 101 H 16 128/63 06/22/21 23:42 100 H 19 124/67 06/22/21 22:48 106 H 18 06/22/21 22:30 35.4 C L 110 H 18 119/62 Pulse Ox 06/23/21 06:45 06/23/21 06:20 06/23/21 06:04 06/23/21 05:20 06/23/21 05:00 06/23/21 04:50 06/23/21 04:35 06/23/21 04:18 06/23/21 03:51 06/23/21 03:00 06/23/21 02:08 100 06/23/21 02:03 06/23/21 01:03 99 06/23/21 01:00 100 06/23/21 00:33 93 06/23/21 00:18 94 06/22/21 23:59 95 06/22/21 23:42 96 06/22/21 22:48 100 06/22/21 22:30
[2021-06-23] MEDS ORDERED: METOPROLOL SUCC 50MG EXT REL TAB PO ONE (10:22)
--- NOTE | 2021-06-23 11:37 | Orthopedic Consultation ---
Date of Consultation June 23, 2021 Assessment & Plan (1) Closed fracture of left proximal humerus: Chronic left comminuted, displaced proximal humerus fracture. After discussion with the patient, he is still planning to have his surgery done in [place] June barring any complications from this admission keeping him from doing that. Patient is being worked up for upper GI bleed and has a significant cardiac history. I offered him a sling for comfort if he needed it. Patient refused at this time and is stating that he has not really been using one. I would plan to limit his range of motion if possible. Nonweightbearing on the left upper extremity. Pain control as needed. Should the patient decide to modify his care plan he may see Dr. Naik at [facility]. Please call us with any further questions. History of Present Illness Reason for Consultation: Left proximal humerus fracture Attending Physician: Yen Vega MD History of Present Illness Patient is a 80-year-old male with past medical history significant for chronic systolic heart failure secondary to ischemic cardiomyopathy (EF less than 20%, TTE 2021) status post ICD CAD status post stent, history LV thrombus on Coumadin, hypertension, hyperlipidemia, COPD, BPH, DM2 on oral medications, CRI (baseline creatinine 1.3 ), chronic anemia (baseline hemoglobin 12 to 13), hypothyroidism, past tobacco abuse. Over the last several days, the patient was having weakness, lightheadedness along with some headaches. The patient ended up falling to the ground at one point. He was having some shortness of breath without cough. He apparently had some coffee-ground emesis as well as melanotic stools. Patient is currently on Coumadin and was noted to be supratherapeutic and anemic in the ER. An incidental finding on his chest x-ray showed that he had a proximal left humerus fracture that was acute/subacute. Patient states that in March some time, he was loading his lawn tractor onto his trailer. As the lawn tractor was driving up onto the trailer on the ramp, the ramp gave way and the tractor fell off of the ramp with him on the tractor. At that point he had suffered a left proximal humerus fracture. At some point he was seen down at [facility]. Patient states that he is slated for surgery July 14 in [place]. He does not remember the name of the doctor that is doing the surgery. Currently he states that his arm feels fine. He has some mild pain in it off and on. He states he is able to use the arm somewhat and has not used a sling in the recent past. We have been asked to see him for his proximal humerus fracture. Allergies Allergy/AdvReac Type Severity Reaction Status Date / Time No Known Allergies Allergy Verified 06/22/21 22:21 Home Medications Medication Instructions Recorded Confirmed Type aspirin 81 mg tablet,delayed 81 mg PO QAM 01/14/20 06/22/21 History release (Aspirin Low Dose) cyanocobalamin (vitamin B-12) 1,000 mcg PO QAM 01/14/20 06/22/21 History 1,000 mcg capsule isosorbide mononitrate 30 mg 30 mg PO QAM 01/14/20 06/22/21 History tablet,extended release 24 hr metformin 1,000 mg tablet 1,000 mg PO BID 01/14/20 06/22/21 History nitroglycerin 0.4 mg sublingual 0.4 mg SUBLINGUAL UD 01/14/20 06/22/21 History tablet (Nitrostat) atorvastatin 40 mg tablet 40 mg PO DAILY 06/22/21 06/22/21 History gabapentin 100 mg capsule 100 mg PO AMHS 06/22/21 06/22/21 History levothyroxine 100 mcg tablet 100 mcg PO DAILYBB 06/22/21 06/22/21 History magnesium oxide 400 mg PO DAILY 06/22/21 06/22/21 History furosemide 40 mg tablet 40 mg PO DAILY #0 tab 06/28/21 06/22/21 Rx metoprolol succinate 50 mg 100 mg PO DAILY #60 tab 06/28/21 Rx tablet,extended release 24 hr omeprazole 40 mg capsule,delayed 40 mg PO BID 84 Days #168 cap 06/28/21 Rx release sucralfate 1 gram tablet 1 g PO BID #60 tab 06/28/21 Rx Patient History Medical History Diabetes mellitus, type 2 History of GI bleed History of left heart catheterization 1991 [place], NO STENTS 2004 [facility], UNSURE OF STENTS Hyperlipidemia Hypertension Ischemic cardiomyopathy Pt admitted for elective ICD due to ICM. Pt underwent procedure without any complications; monitored overnight and discharged home. 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 No acute distress, pleasant and cooperative. On examination of his left shoulder, there is no ecchymosis noted and minimal swelling of the shoulder compared to the right. He is slightly tender on palpation over the proximal humerus. He states that he is able to use the shoulder in some fashion. I am able to take him through gentle passive range of motion without pain. He has good range of motion of his left elbow as well as his left wrist. Sensation in the hand and fingers is within normal limits. He does have limited range of motion actively secondary to fracture. Right upper extremity is within normal limits with range of motion and nontender at the shou lder, elbow, and wrist. Lower extremities are essentially benign and within normal limits for range of motion. There is no gross motor or sensory loss seen at this time other than decreased range of motion secondary to his left proximal humerus fracture. Distal pulses are equal bilaterally of the upper lower extremities. Results & Data ([facility]) Vital Signs (Past 12 Hours) Vital Signs Temp Pulse Pulse Pulse Resp BP BP 06/23/21 10:58 36.4 C L 105 H 18 108/67 06/23/21 10:06 36.6 C 107 H 20 120/78 06/23/21 06:45 36.6 C 102 H 16 128/80 06/23/21 06:20 36.6 C 105 H 16 126/80 06/23/21 06:04 36.6 C 106 H 16 140/79 06/23/21 05:20 36.6 C 105 H 17 122/80 06/23/21 05:00 36.5 C 108 H 105 H 16 106/80 106/80 06/23/21 04:50 36.5 C 106 H 18 146/79 H 06/23/21 04:35 36.6 C 106 H 18 119/85 06/23/21 04:18 36.6 C 106 H 18 108/74 06/23/21 03:51 105 H 16 06/23/21 03:00 107 H 16 104/73 06/23/21 02:08 36.6 C 105 H 17 119/85 06/23/21 02:03 36.2 C L 105 H 16 114/62 06/23/21 01:03 36.4 C L 106 H 16 114/62 06/23/21 01:00 36.4 C L 106 H 16 114/62 06/23/21 00:33 36.5 C 107 H 17 116/69 06/23/21 00:18 34.9 C L 104 H 18 123/70 06/22/21 23:59 36.5 C 101 H 16 128/63 06/22/21 23:42 100 H 19 124/67 Pulse Ox 06/23/21 10:58 97 06/23/21 10:06 98 06/23/21 06:45 100 06/23/21 06:20 100 06/23/21 06:04 100 06/23/21 05:20 100 06/23/21 05:00 100 06/23/21 04:50 100 06/23/21 04:35 100 06/23/21 04:18 100 06/23/21 03:51 100 06/23/21 03:00 100 06/23/21 02:08 100 06/23/21 02:03 100 06/23/21 01:03 99 06/23/21 01:00 100 06/23/21 00:33 93 06/23/21 00:18 94 06/22/21 23:59 95 06/22/21 23:42 96 Laboratory Results Laboratory Results WBC 17.07 K/uL (4.8-10.8) H 06/23/21 09:01 RBC 3.53 M/uL (4.7-6.1) L 06/23/21 09:01 Hgb 10.4 g/dL (14.0-18.0) L 06/23/21 09:01 POC Hgb 6.8 g/dl (14.0-18.0) L* 06/22/21 22:30 Hct 30.6 % (42-52) L 06/23/21 09:01 POC Hct 20 % (42-52) L* 06/22/21 22:30 MCV 86.7 fL (80-100) D 06/23/21 09:01 MCH 29.5 pg (25-34) 06/23/21 09:01 MCHC 34.0 g/dL (32-36) 06/23/21 09:01 RDW Std Deviation 50.0 fL (36.4-46.3) H 06/23/21 09:01 RDW Coeff of Nicole 16.2 % (11.5-14.5) H 06/23/21 09:01 Plt Count 222 K/uL (130-400) 06/23/21 09:01 MPV 9.7 fL (7.4-10.4) 06/23/21 09:01 Immature Gran % (Auto) 1.0 % 06/23/21 09:01 Neut % (Auto) 72.2 % 06/23/21 09:01 Lymph % (Auto) 15.5 % 06/23/21 09:01 [place] % (Auto) 11.2 % 06/23/21 09:01 Eos % (Auto) 0.0 % 06/23/21 09:01 Baso % (Auto) 0.1 % 06/23/21 09:01 Neut # (Auto) 12.32 K/uL (1.4-6.5) H 06/23/21 09:01 Lymph # (Auto) 2.65 K/uL (1.2-3.4) 06/23/21 09:01 [place] # (Auto) 1.91 K/uL (0.11-0.59) H 06/23/21 09:01 Eos # (Auto) 0.00 K/uL (0-0.5) 06/23/21 09:01 Baso # (Auto) 0.02 K/uL (0-0.2) 06/23/21 09:01 Immature Gran # (Auto) 0.17 K/uL (0.00-0.02) H 06/23/21 09:01 Absolute Nucleated RBC 0.02 K/uL (0-0) H 06/23/21 09:01 Nucleated RBC % (auto) 0.1 % 06/23/21 09:01 PT 11.9 Seconds (9.0-12.0) 06/23/21 09:01 INR 1.2 (0.9-1.1) H 06/23/21 09:01 POC Sodium 137 mmol/L (135-144) 06/22/21 22:30 Sodium 135 mmol/L (136-145) L 06/23/21 09:01 POC Potassium 5.0 mmol/L (3.3-5.0) 06/22/21 22:30 Potassium 4.3 mmol/L (3.5-5.1) 06/23/21 09:01 POC Chloride 104 mmol/L (101-112) 06/22/21 22:30 Chloride 104 mmol/L (98-107) 06/23/21 09:01 Carbon Dioxide 24 mmol/L (21-32) 06/23/21 09:01 POC Total CO2 16 mmol/L (24-31) L 06/22/21 22:30 Anion Gap 7 (3-11) 06/23/21 09:01 POC Anion Gap 23.0 mmol/L (16-25) 06/22/21 22:30 POC BUN 102 mg/dl (7-18) H* 06/22/21 22:30 BUN 88 mg/dl (6-23) H 06/23/21 09:01 Creatinine 1.22 mg/dl (0.6-1.4) 06/23/21 09:01 POC Creatinine 1.6 mg/dl (0.6-1.3) H 06/22/21 22:30 Est Cr Clr Drug Dosing 50.7 ml/min 06/23/21 09:01 Est GFR ( Amer) 65.0 ml/min 06/23/21 09:01 Est GFR (Non-Af Amer) 56.0 ml/min 06/23/21 09:01 BUN/Creatinine Ratio 72.1 (10-20) H 06/23/21 09:01 Glucose 219 mg/dl (70-99(Fasting)) H 06/23/21 09:01 POC Glucose 171 mg/dl (70-99) H 06/23/21 05:36 POC Glucose (other) 216 mg/dl (70-99) H 06/22/21 22:30 Lactate 2.5 mmol/L (0.4-2.0) H* 06/23/21 09:01 Calcium 7.9 mg/dl (8.5-10.1) L 06/23/21 09:01 POC Ioniz Calcium Leo 1.29 mmol/l (1.12-1.32) 06/22/21 22:30 Magnesium 1.9 mg/dl (1.7-2.4) 06/22/21 22:25 Total Bilirubin 0.2 mg/dl (0.2-1.0) 06/22/21 22:25 AST 11 U/L (13-39) L 06/22/21 22:25 ALT 8 U/L (7-52) 06/22/21 22:25 Alkaline Phosphatase 50 U/L (34-104) 06/22/21 22:25 Total Creatine Kinase 47 U/L (30-223) 06/22/21 22:25 Troponin I 0.11 ng/ml (0-0.04) H* 06/23/21 09:01 Total Protein 5.2 gm/dl (6.0-8.3) L 06/22/21 22:25 Albumin 2.6 gm/dl (3.4-5.0) L 06/22/21 22:25 Globulin 2.6 gm/dl (2.5-4.0) 06/22/21 22:25 Albumin/Globulin Ratio 1.0 (0.9-2) 06/22/21 22:25 Procalcitonin 0.10 ng/ml (0-0.5) 06/23/21 03:24 TSH 5.816 uIu/ml (0.300-4.500) H 06/22/21 22:25 Free T4 0.88 ng/dl (0.61-1.60) 06/22/21 22:25 Urine Color Yellow 06/23/21 01:46 Urine Appearance Clear (Clear) 06/23/21 01:46 Urine pH 5.0 (4.5-7.5) 06/23/21 01:46 Ur Specific [place] 1.040 (1.000-1.030) H 06/23/21 01:46 Urine Protein Negative (Negative) 06/23/21 01:46 Urine Glucose (UA) Negative (Negative) 06/23/21 01:46 Urine Ketones Negative (Negative) 06/23/21 01:46 Urine Blood Negative (Negative) 06/23/21 01:46 Urine Nitrite Negative (Negative) 06/23/21 01:46 Urine Bilirubin Negative (Negative) 06/23/21 01:46 Urine Urobilinogen Negative (Negative) 06/23/21 01:46 Ur Leukocyte Esterase Negative (Negative) 06/23/21 01:46 POC Stool Occult Blood Positive (Negative) A 06/22/21 22:21 SARS-CoV-2, RNA, NAAT NEGATIVE (NEGATIVE) 06/22/21 23:49 Blood Type B Negative 06/22/21 22:25 Blood Type Recheck B Negative 06/22/21 22:46 Antibody Screen NEGATIVE 06/22/21 22:25 Crossmatch See Detail 06/22/21 22:25 Impressions Chest X-Ray 06/22/21 22:21 XR chest 1V portable HISTORY: 80 years-old Male weakness, fall . Acute weakness COMPARISON: CT abdomen and pelvis of same day, chest radiograph 03/24/2020 TECHNIQUE: Portable AP view of the chest FINDINGS: The cardiomediastinal and hilar silhouettes are within normal limits. Left subclavian pacer/AICD. Reticular nodular opacities are noted within the right midlung and right lung base. No pneumothorax, pleural effusion or overt pulmonary edema. Degenerative changes of the shoulders and spine. There is a comminuted and displaced fracture of the proximal left humerus which appears acute to subacute and is new from prior. IMPRESSION: 1. Acute versus subacute comminuted and displaced fracture of the proximal diaphyseal left humerus. 2. Reticular nodular opacities of the right midlung and right lung base are suggestive of an infectious or inflammatory pneumonitis/bronchiolitis. ACT 112: Negative or not required by law. The above report was generated using voice recognition software. It may contain grammatical, syntax or spelling errors. Electronically signed by: Mark Badillo M.D. 06/23/2021 6:40 AM Shoulder X-Ray 06/23/21 08:49 XR shoulder LT min 2V routine HISTORY: 80 years-old Male fx acute pain of the left upper cavity COMPARISON: Chest radiograph 06/22/2021, chest radiographs 03/24/2020. TECHNIQUE: 3 views of the left shoulder FINDINGS: Left subclavian pacer/AICD. The left AC joint is pathologically widened measuring 2.3 cm. There is an acute and comminuted fractures involving the surgical neck and proximal diaphyseal left humerus. There are several millimeters of impaction with lateral displacement measuring up to 1.5 cm. Volar displacement measures up to 1.3 cm. No dislocation of the glenohumeral joint identified. IMPRESSION: 1. Acute, comminuted, displaced and impacted fracture of the left proximal humerus. 2. Chronic pathologic widening of the left AC joint. ACT 112: Negative or not required by law. The above report was generated using voice recognition software. It may contain grammatical, syntax or spelling errors. Electronically signed by: Mark Badillo M.D. 06/23/2021 9:43 AM
--- NOTE | 2021-06-23 12:14 | Electrocardiogram Report ---
Test Reason : Blood Pressure : / mmHG Vent. Rate : 109 BPM Atrial Rate : 109 BPM P-R Int : 164 ms QRS Dur : 124 ms QT Int : 358 ms P-R-T Axes : 082 261 072 degrees QTc Int : 482 ms Sinus tachycardia Right bundle branch block Inferior infarct (cited on or before 23-MAR-2020) Anterolateral infarct (cited on or before 23-MAR-2020) Abnormal ECG When compared with ECG of 23-MAR-2020 14:23, Premature ventricular complexes are no longer Present Premature supraventricular complexes are no longer Present T wave inversion no longer evident in Anterior leads Confirmed by Herbert Galvan ([id number]) on 06/23/2021 12:13:48 PM Referred By: REFERRED SELF Confirmed By:Kendrick Galvan
--- NOTE | 2021-06-23 12:15 | Electrocardiogram Report ---
Test Reason : Blood Pressure : / mmHG Vent. Rate : 107 BPM Atrial Rate : 107 BPM P-R Int : 162 ms QRS Dur : 130 ms QT Int : 356 ms P-R-T Axes : 056 258 056 degrees QTc Int : 475 ms Sinus tachycardia with occasional Premature ventricular complexes and Fusion complexes Right bundle branch block possible Inferior infarct (cited on or before 23-MAR-2020) Anterolateral infarct (cited on or before 23-MAR-2020) Abnormal ECG When compared with ECG of 22-JUN-2021 22:07, (unconfirmed) Fusion complexes are now Present Premature ventricular complexes are now Present Confirmed by Herbert Galvan ([id number]) on 06/23/2021 12:15:23 PM Referred By: REFERRED SELF Confirmed By:Kendrick Galvan
[2021-06-23 12:33] LABS: Hematocrit (blood only) 31.2 % (42-52); Hemoglobin 10.1 g/dL (14.0-18.0)
--- NOTE | 2021-06-23 14:31 | Hospitalist Progress Note ---
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 No recent changes in Coumadin regimen and denies OTC NSAID intake. No such prior episodes per patient. Is being managed for the following: #. Likely duodenitis #. Acute GI bleeding - 2/2 above #. Symptomatic anemia -acute on chronic anemia 2/2 above #. Supratherapeutic INR Patient presented with weakness/shortness of breath/hematemesis/melanotic stools GI bleed likely secondary to duodenal ulcer on the background of Coumadin coagulopathy. Admitting CTAP: Suggestive of nonspecific duodenitis versus peptic ulcer disease, likely blood products and third portion of the duodenum. Numerous tree-in-bud nodules within right greater than left lung bases suggestive of infectious versus inflammatory process. -------------> Admitting procalcitonin 0.10, negative----> likely inflammatory, await admitting blood culture. FOBT positive, admitting hemoglobin 6.8 --> s/p 2 unit PRBC---> follow-up hemoglobin greater than 10 Admitting INR 8.5 --> s/p prothrombin complex and vitamin K --> follow-up INR 1.2 GI on board --> likely EGD tomorrow Continue with PPI drip, avoid NSAIDs, H&H every 12 hours or as needed. N.p.o. until cleared by GI Continue to hold Coumadin and aspirin until further recommendation from GI/cardio. Transfuse PRBC to maintain hemoglobin greater than 8 and/or for symptomatic anemia #. Fall -- see above CT C-spine: No acute findings. CXR: Proximal left humerus fracture noted, reticular opacities at the right midlung and base noted likely inflammatory pneumonitis. CT head: No acute findings. Left shoulder x-ray: Acute, comminuted, displaced and impacted fracture of the left proximal humerus with chronic pathologic widening of the left AC joint. Denies pain in the left shoulder while at rest but reports difficulty with moving. Orthopedics on board: Sling for support, limited range of motion, patient awaiting surgery in [place] July 14, 2021. Pain control as needed. #. Increased blood lactate level Admitting lactate 10.3, trending down #. History of LV thrombus Patient on Coumadin, supratherapeutic INR, received prothrombin complex and vitamin K in the ED, Coumadin subtherapeutic as of now SCDs Continue to hold Coumadin and aspirin until further recommendation from GI/cardio. #. Mild troponin elevation #. Chronic HFrEF -2021 TTE with EF less than 20%, patient euvolemic, status post ICD. Admitting EKG: Sinus tachycardia with occasional PVCs and fusion complexes, no acute ST or T changes. Admitting troponin 0 0.07, minimally up trended, likely demand ischemia Repeat EKG: sinus tachycardia with no acute ST or T changes. Cardiology on board: Appreciate recommendation regarding Coumadin and ASA, gentle hydration only, metoprolol 100 mg is his home dose. Continue telemetry, continue to monitor appreciate cardiology recommendation. #. Other chronic medical conditions: HTN [cautious with meds due to concerns of hypertension due to bleed), HLD, COPD, DM2 on oral meds, hypothyroidism, past tobacco abuse TSH minimally elevated at 5.8 with normal free T4 Continue home medication as and when appropriate. Tearful with blood pressure medication. Continue with sliding scale. DVT prophylaxis. SCDs if INR less than 2 while Coumadin on hold Full code Admission and Anticipated Discharge Date Admission Date: June 23, 2021 Subjective Patient is seen and examined at bedside for supratherapeutic INR, GI bleed, left humerus fracture. Patient was lying in bed, on room air, NAD, no new acute events overnight. Patient remains n.p.o. due to GI bleed until cleared by GI. Patient denies any bowel movement after coming to the hospital. Patient denies any pain. Patient reports difficulty moving his left hand though. Patient denies any fever/headache/chills/chest pain/palpitations/belly pain/other review of symptoms. Physical Exam Physical Exam: GENERAL: Alert and oriented x3. NAD, on RA. HEENT: No pallor, no icterus. Pupils equal, round and reactive to light. Oral mucosa moist. NECK: No JVD, no neck masses. HEART: S1 and S2 heard. Regular rate and rhythm. No murmur, no gallop. RESPIRATORY SYSTEM: Normal AP diameter. No accessory muscle use. No wheezing, no crackles. ABDOMEN: Soft, bowel sounds present, nontender, no distention. CENTRAL NERVOUS SYSTEM: No facial droop. Speech is clear. Obeys simple commands. Moves extremities. EXTREMITIES: No edema, no erythema seen. Results & Data Results & Data ([facility]) Vital Signs (Past 12 Hours) Vital Signs Temp Pulse Pulse Resp BP BP Pulse Ox 06/23/21 10:58 36.4 C L 105 H 18 108/67 97 06/23/21 10:06 36.6 C 107 H 20 120/78 98 06/23/21 06:45 36.6 C 102 H 16 128/80 100 06/23/21 06:20 36.6 C 105 H 16 126/80 100 06/23/21 06:04 36.6 C 106 H 16 140/79 100 06/23/21 05:20 36.6 C 105 H 17 122/80 100 06/23/21 05:00 36.5 C 108 H 105 H 16 106/80 106/80 100 06/23/21 04:50 36.5 C 106 H 18 146/79 H 100 06/23/21 04:35 36.6 C 106 H 18 119/85 100 06/23/21 04:18 36.6 C 106 H 18 108/74 100 06/23/21 03:51 105 H 16 100 06/23/21 03:00 107 H 16 104/73 100
[2021-06-23 15:40] LABS: Ferritin 156.7 ng/ml (8-388)
[2021-06-23 15:45] LABS: Folate (Folic Acid) 5.28 ng/ml (>5.38)
[2021-06-23 15:48] LABS: Iron 163 mcg/dl (35-175)
[2021-06-23 15:49] LABS: Transferrin 124 mg/dl (200-360); Unsaturated Iron Binding Cap < 55 mcg/dl (155-355)
[2021-06-23] MEDS ORDERED: METOPROLOL SUCC 25MG EXT REL TAB PO STA (17:44)
[2021-06-23 22:40] LABS: Hematocrit (blood only) 28.5 % (42-52); Hemoglobin 9.6 g/dL (14.0-18.0)
[2021-06-24] MEDS: PANTOprazole 40 MG in DEXTROSE 5% 100 ML IV SCH ×2 (04:37→09:17)
[2021-06-24 06:01] LABS: Hematocrit (blood only) 27.2 % (42-52); Hemoglobin 9.1 g/dL (14.0-18.0); Mean Corpuscular Hemoglobin 29.4 pg (25-34); Mean Corpuscular Hgb Conc 33.5 g/dL (32-36); Mean Corpuscular Volume 87.7 fL (80-100); Mean Platelet Volume 9.9 fL (7.4-10.4); Nucleated RBC # (auto) 0.09 K/uL (0-0); Nucleated RBC % (auto) 0.5 %; Platelet Count 152 K/uL (130-400); RDW Coefficient of Variation 17.3 % (11.5-14.5); White Blood Count 16.82 K/uL (4.8-10.8)
[2021-06-24 06:10] LABS: INR 1.1 (0.9-1.1); Prothrombin Time 11.3 Seconds (9.0-12.0)
[2021-06-24] MEDS: LEVOTHYROXINE SODIUM 100 MCG TABLET PO SCH (06:12)
[2021-06-24 06:21] LABS: BUN Creatinine Ratio 62.7 (10-20); Calcium 8.1 mg/dl (8.5-10.1); Creatinine Clr Calc Pharmacy 56.2 ml/min; Est GFR (African American) 73.6 ml/min; Est GFR (Non-African American) 63.5 ml/min; Magnesium 2.1 mg/dl (1.7-2.4); Phosphorus 3.4 mg/dl (2.5-4.9); Potassium 4.2 mmol/L (3.5-5.1)
[2021-06-24] MEDS: INSULIN ASPART PER UNIT SC SCH ×4 (08:49→20:56)
[2021-06-24] MEDS: METOPROLOL SUCC 50MG EXT REL TAB PO SCH (09:17)
[2021-06-24] MEDS: GABAPENTIN 100 MG CAP PO SCH ×2 (09:17→21:20)
[2021-06-24] MEDS: ISOSORBIDE MONO EXTENDED REL 30 MG TABCR PO SCH (09:17)
[2021-06-24] MEDS: ATORVASTATIN 40 MG TAB PO SCH (09:18)
[2021-06-24] MEDS: INSULIN GLARGINE SOLOSTAR 100 UNITS/ML 3 ML PEN SC SCH (09:18)
--- NOTE | 2021-06-24 10:07 | Cardiology Progress Note ---
Date of Service June 24, 2021 Assessment & Plan (1) Acute GI bleeding: (2) Elevated troponin I level: (3) Ischemic cardiomyopathy: (4) ABLA (acute blood loss anemia): (5) Sinus tachycardia: (6) LV (left ventricular) mural thrombus: Plan: Patient admitted for weakness, dizziness, secondary to profound anemia, hbg 6.7 on arrival. INR supratherapeutic and reversed. Hold Coumadin. Await GI evaluation, likely endoscopy in the AM. Hbg now > 10 after 2 units of PRBC's. Continue IV protonix. Minimally Elevated troponin likely in the setting of severe underlying ischemic heart disease with LVEF 20% and profound anemia. No acute EKG changes and no symptoms to suggest ACS. He appears euvolemic. Monitor I+O's. Gentle hydration only. Recent echo on 06/21/21 with stable findings, severely reduced LV function at 20% No evidence of recurrent LV mural thrombus while on coumadin. Will need to consider risk/benefit ratio of resuming coumadin upon discharge. He remains tachycardic this morning. Per review of outpatient/inpatient med list, he is typically on metoprolol 100 mg daily, confirmed by patient and in EPIC. He received 25 mg this morning. Will give an additional 50 mg this morning to equal 75 mg, and plan for home dose 100 mg tomorrow if tolerated. Monitor HR's. He has not been hypotensive since admission. He has underlying dual lead pacemaker/defib. ASA also remains on hold. Continue all other cardiac medications including atorvastatin, isosorbide, metoprolol. He appears optimized from a cardiac standpoint to proceed with endoscopy. Admission and Anticipated Discharge Date Admission Date: June 23, 2021 Subjective Patient seen and examined, chart reviewed. Patient states he feels well today. Still with decreased energy but denies cardiac complaints of chest pain, shortness of breath, palpitations or lightheadedness. Telemetry reviewed: Normal sinus rhythm with underlying right bundle branch block, no arrhythmias Review of Systems Review of Systems: All systems reviewed & are unremarkable except as noted in HPI & below Physical Exam Physical Exam: General: Awake, alert and oriented x 3. No acute distress. HEENT: Normocephalic, atraumatic. Pupils equal, round and reactive to light and accommodation. Extraocular muscles are intact. Anicteric sclera. Moist mucous membranes. Neck: No JVD. No bruit. Cardiovascular: Regular. Positive S-4. Normal S-1 and S-2. No S-3. 3/6 mid to late systolic ejection murmur, greatest at the right sternal border, second intercostal space with radiation to the bilateral carotids. No rubs. Pulmonary: Clear to auscultation bilaterally. No rales, rhonchi, or wheezing. Abdomen: Bowel sounds x 4, soft. No rebound, guarding or tenderness. No organomegaly. Extremities: No clubbing, cyanosis or edema. +2 pedal pulses bilaterally. Skin: Warm and dry. Results & Data ([facility]) Vital Signs (Past 12 Hours) Vital Signs Temp Pulse Resp BP BP Pulse Ox 06/24/21 08:00 36.7 C 84 16 119/61 96 06/24/21 04:00 36.8 C 87 14 132/68 95 06/23/21 23:35 36.4 C L 97 H 18 124/69 95
--- NOTE | 2021-06-24 10:32 | Gastroenterology Progress Note ---
Date of Service June 24, 2021 Assessment & Plan (1) Acute GI bleeding: (2) Supratherapeutic INR: Plan: Pt is a 80 y/o male seen for symptom of UGI bleeding, symptomatic anemia in setting of supratherapuetic INR on Coumadin for hx of LV thrombus. CT abd/pelvis w signs of duodenal wall thickening, hyperemia, stranding. Hx of esophagitis and gastritis noted on previous EGDs. Blood ct improved after 2U PRBC transfusion. He does have significant cardiac hx as noted above including CAD, ischemic cardiomyopathy w EF 25-30%, LV thrombus. Troponin is elevated. Also noted he has signs of pneumonitis and L humeral fracture. INR 1 today. He has been seen by Cardiology and cleared for EGD procedure. No more s/s of melena. Blood ct stable since PRBC transfusions - Monitor blood ct and transfuse prn - Keep NPO - Continue PPI gtt - EGD by Dr. Amador today - Pneumonitis management per primary team Admission and Anticipated Discharge Date Admission Date: June 23, 2021 Supervising Physician Co-Signing Physician Notes I saw and evaluated the patient. We are planning to do upper endoscopy today due to a question of symptomatic anemia. The patient is on Coumadin for history of a left ventricular thrombus and this could certainly lead to his presentation. We will plan to do upper endoscopy today. I discussed the risks to include bleeding, infection, perforation pain and need for follow-up studies. Subjective Pt denies abd pain, n/v, or bowel movements overnight. Hgb stable at 9 after PRBC transfusions Review of Systems Review of Systems: All systems reviewed & are unremarkable except as noted in HPI & below Physical Exam Constitutional: WD/WN, vitals as above well groomed, cooperative and co mfortable Eyes: PERRL, conjunctivae normal, anicteric sclerae ENMT: external ear and nose normal, oropharynx normal Cardiovascular: RRR, no murmur, no edema Gastrointestinal (Abdomen): normal bowel sounds, soft, nontender, no hepatosplenomegaly Skin: no rashes, warm and dry no jaundice Psychiatric: A+Ox3, euthymic affect Lymphatic: no lymphedema Results & Data ([facility]) Vital Signs (Past 12 Hours) Vital Signs Temp Pulse Resp BP BP Pulse Ox 06/24/21 08:00 36.7 C 84 16 119/61 96 06/24/21 04:00 36.8 C 87 14 132/68 95 06/23/21 23:35 36.4 C L 97 H 18 124/69 95
[2021-06-24] MEDS ORDERED: PROPOFOL IV EMULSION 10 MG/ML 20 ML VIAL IV ONE (13:20)
[2021-06-24] MEDS ORDERED: LIDOCAINE 2% 2 ML VIAL/AMP(20MG/ML) INFIL ONE (13:20)
--- NOTE | 2021-06-24 13:31 | Anesthesiology Consultation ---
Date of Service June 24, 2021 Assessment & Plan Chart Review Chart Review: Acceptable Risk for Surgery Consults Requested none History Surgery Operation Date: 06/24/21 16:30 Proposed Procedures p Esophagogastroduodenoscopy Dr Perry Amador, Height/Weight Height: 5 ft 10 in Weight: 86.2 kg Allergies Allergy/AdvReac Type Severity Reaction Status Date / Time No Known Allergies Allergy Verified 06/22/21 22:21 Medications Home Medications Medication Instructions Recorded Confirmed Last Taken aspirin 81 mg tablet,delayed 81 mg PO QAM 01/14/20 06/22/21 06/21/21 release (Aspirin Low Dose) cyanocobalamin (vitamin B-12) 1,000 mcg PO QAM 01/14/20 06/22/21 06/21/21 1,000 mcg capsule famotidine 20 mg tablet 20 mg PO HS 01/14/20 06/22/21 06/21/21 isosorbide mononitrate 30 mg 30 mg PO QAM 01/14/20 06/22/21 06/21/21 tablet,extended release 24 hr metformin 1,000 mg tablet 1,000 mg PO BID 01/14/20 06/22/21 06/21/21 nitroglycerin 0.4 mg sublingual 0.4 mg SUBLINGUAL UD 01/14/20 06/22/21 Unknown tablet (Nitrostat) atorvastatin 40 mg tablet 40 mg PO DAILY 06/22/21 06/22/21 06/21/21 doxycycline hyclate 100 mg capsule 100 mg PO BID 06/22/21 06/22/21 06/21/21 furosemide 40 mg tablet 80 mg PO DAILY 06/22/21 06/22/21 Unknown gabapentin 100 mg capsule 100 mg PO AMHS 06/22/21 06/22/21 06/21/21 levothyroxine 100 mcg tablet 100 mcg PO DAILYBB 06/22/21 06/22/21 06/21/21 magnesium oxide 400 mg PO DAILY 06/22/21 06/22/21 06/21/21 metoprolol succinate 50 mg 50 mg PO DAILY 06/22/21 06/22/21 06/21/21 tablet,extended release 24 hr omeprazole 40 mg capsule,delayed 40 mg PO DAILYBB 06/22/21 06/22/21 06/21/21 release warfarin 5 mg tablet See Rx Instructions .ROUTE .COMPLEX 06/22/21 06/22/21 06/21/21 Active Medications Generic Name Dose Route Start Last Admin Trade Name [place] PRN Reason Stop Dose Admin Atorvastatin Calcium 40 mg 06/23/21 09:00 06/24/21 09:18 Atorvastatin 40 Mg Tab PO 07/23/21 08:59 40 mg DAILY JOVANY Administration Gabapentin 100 mg 06/23/21 09:00 06/24/21 09:17 Gabapentin 100 Mg Cap PO 07/23/21 08:59 100 mg AMHS JOVANY Administration Pantoprazole Sodium 40 mg/ 100 mls @ 20 mls/hr 06/22/21 23:00 06/24/21 12:42 Dextrose IV 07/22/21 22:59 0 mg/hr Q5H JOVANY 0 mls/hr Infusion 8 MG/HR Insulin Aspart 0 units 06/23/21 03:51 06/24/21 12:04 Insulin Aspart Per Unit SC 07/23/21 03:50 Not Given ACHS JOVANY Insulin Glargine 5 units 06/23/21 09:00 06/24/21 09:18 Insulin Glargine Solostar 100 Units/Ml 3 Ml Pen SC 07/23/21 08:59 5 units DAILY JOVANY Administration Isosorbide Mononitrate 30 mg 06/24/21 09:00 06/24/21 09:17 Isosorbide Cavalier Extended Rel 30 Mg Tabcr PO 07/24/21 08:59 30 mg QAM JOVANY Administration Levothyroxine Sodium 100 mcg 06/23/21 06:30 06/24/21 06:12 Levothyroxine Sodium 100 Mcg Tablet PO 07/23/21 06:29 100 mcg DAILYBB JOVANY Administration Metoprolol Succinate 100 mg 06/24/21 09:00 06/24/21 09:17 Metoprolol Succ 50mg Ext Rel Tab PO 07/24/21 08:59 100 mg DAILY JOVANY Administration NPO Date Last Intake of Fluids: 06/23/21 Time Last Intake of Fluids: 23:00 Date Last Intake of Solids: 06/21/21 Past Medical History Medical History Diabetes mellitus, type 2 History of GI bleed History of left heart catheterization 1991 [place], NO STENTS 2004 [facility], UNSURE OF STENTS Hyperlipidemia Hypertension Ischemic cardiomyopathy Pt admitted for elective ICD due to ICM. Pt underwent procedure without any complications; monitored overnight and discharged home. Osteoarthritis Poor historian Sinus bradycardia Past Surgical History Surgical History History of adenoidectomy History of carpal tunnel release of both wrists History of cataract surgery BOTH EYES History of colonoscopy 5 YEARS AGO History of tonsillectomy History of tooth extraction Social History Smoking Status: Never smoker Do You Dip or Chew Tobacco: No Hx Alcohol Use: Yes Alcohol type: beer alcohol intake frequency: holidays/special occasions only Hx Substance Use: No substance use type: does not use Physical Exam Vital Signs Last Vital Signs Temp 36.3 C L 06/24/21 12:54 Pulse 69 06/24/21 12:54 Resp 18 06/24/21 12:54 BP 105/59 L 06/24/21 12:54 Pulse Ox 94 06/24/21 12:54 Testing Laboratory Results 06/24/21 05:42 06/24/21 05:42 PT 11.3 Seconds (9.0-12.0) 06/24/21 05:42 INR 1.1 (0.9-1.1) 06/24/21 05:42 Urine Color Yellow 06/23/21 01:46 Urine Appearance Clear (Clear) 06/23/21 01:46 Urine pH 5.0 (4.5-7.5) 06/23/21 01:46 Ur Specific [place] 1.040 (1.000-1.030) H 06/23/21 01:46 Urine Protein Negative (Negative) 06/23/21 01:46 Urine Glucose (UA) Negative (Negative) 06/23/21 01:46 Urine Ketones Negative (Negative) 06/23/21 01:46 Urine Nitrite Negative (Negative) 06/23/21 01:46 Ur Leukocyte Esterase Negative (Negative) 06/23/21 01:46 Blood Type B Negative 06/22/21 22:25 Antibody Screen NEGATIVE 06/22/21 22:25 06/23/21 03:24 Aerobic Blood Culture - Preliminary Blood No growth in Aerobic bottle after 24 hours. Anaerobic Blood Culture - Final 06/23/21 03:24 Aerobic Blood Culture - Preliminary Blood No growth in Aerobic bottle after 24 hours. Anaerobic Blood Culture - Final 06/24/21 06/24/21 11:51 08:42 POC Glucose 134 H 123 H
[2021-06-24] MEDS ORDERED: PHENYLEPHRINE 100MCG/ML 5ML SYR ONE (13:56)
--- NOTE | 2021-06-24 13:56 | GI REPORT ---
Patient Name: Juan Tavera Procedure Date: 06/24/2021 1:40 PM Date of : 1940 Admit Type: Inpatient Age: 80 Gender: Male Attending MD: Jasvir Amador DO Procedure: Upper GI endoscopy Providers: Jasvir Amador DO Referring MD: Referred Self, Yen Vega Md, Kaitlin Nayak Md Indications: Melena, Abnormal CT of the GI tract Medicines: Monitored Anesthesia Care Complications: No immediate complications. Estimated blood loss: Minimal. Estimated Blood Loss: Estimated blood loss was minimal. Procedure: Pre-Anesthesia Assessment: - Prior to the procedure, a History and Physical was performed, and patient medications, allergies and sensitivities were reviewed. The patient's tolerance of previous anesthesia was reviewed. - The risks and benefits of the procedure and the sedation options and risks were discussed with the patient. All questions were answered and informed consent was obtained. - Patient identification and proposed procedure were verified prior to the procedure by the physician, the nurse and the baseball inspector and repairer. The procedure was verified in the procedure room. - Pre-procedure physical examination revealed no contraindications to sedation. - ASA Grade Assessment: III - A patient with severe systemic disease. - After reviewing the risks and benefits, the patient was deemed in satisfactory condition to undergo the procedure. - The anesthesia plan was to use monitored anesthesia care (MAC). - Immediately prior to administration of medications, the patient was re-assessed for adequacy to receive sedatives. - The heart rate, respiratory rate, oxygen saturations, blood pressure, adequacy of pulmonary ventilation, and response to care were monitored throughout the procedure. - The physical status of the patient was re-assessed after the procedure. After obtaining informed consent, the endoscope was passed under direct vision. Throughout the procedure, the patient's blood pressure, pulse, and oxygen saturations were monitored continuously. The Endoscope was introduced through the mouth, and advanced to the third part of duodenum. The upper GI endoscopy was accomplished without difficulty. The patient tolerated the procedure well. Findings: The examined esophagus was normal. The Z-line was regular and was found 39 cm from the incisors. Diffuse minimal inflammation characterized by congestion (edema), erythema and granularity was found in the entire examined stomach. Biopsies were taken with a cold forceps for histology. The pathology specimen was placed into Bottle B. Estimated blood loss was minimal. Segmental severe inflammation characterized by luminal narrowing congestion (edema), erythema, friability and shallow ulcerations was found in the duodenal bulb and in the second portion of the duodenum. Biopsies were taken with a cold forceps for histology. The pathology specimen was placed into Bottle A. Estimated blood loss was minimal. Beyond the stricture region, the duodenum appeared normal. Impression: - Normal esophagus. - Z-line regular, 39 cm from the incisors. - Gastritis. Biopsied. - Duodenitis with inflammation and luminal narrowing. Biopsied to r/o an underlying malignancy. Recommendation: - [facility]. - Full liquid diet. - Use Protonix (pantoprazole) 40 mg PO daily. - No aspirin, ibuprofen, naproxen, or other non-steroidal anti-inflammatory drugs for 6 weeks. Jasvir Amador D.O. Jasvir Amador, 06/24/2021 1:56:04 PM This report has been signed electronically. Note Initiated On: 06/24/2021 1:40 PM Number of Addenda: 0 I attest to the content of the Intraoperative Record and orders documented therein, exceptions below {[id number]}
--- NOTE | 2021-06-24 13:58 | Communication Note ---
Date of Service: June 24, 2021 The patient underwent upper endoscopy today to evaluate a history of melena in the setting of over anticoagulation. The upper endoscopy was notable for mild gastritis and a strictured nodular appearing region of the duodenum. Several biopsies were taken from the stomach and the strictured region of the duodenum. Given the luminal narrowing I would recommend a full liquid diet on discharge. Recommendations Stop all nonsteroidals Protonix 40 mg/day Full liquid diet Await pathology results, if a malignant stricture is noted the patient will need referral to a surgical oncologist
--- NOTE | 2021-06-24 14:03 | Anesthesiology Progress Note ---
Date of Service June 24, 2021 Anesthesia Post Procedure Vital Signs Vital Signs: Temp Pulse Pulse Resp BP BP Pulse Ox 06/24/21 13:55 65 16 85/47 L 98 06/24/21 12:54 36.3 C L 69 18 105/59 L 94 06/24/21 11:58 71 15 95/56 L 95 06/24/21 08:00 36.7 C 84 16 119/61 96 06/24/21 04:00 36.8 C 87 14 132/68 95 06/23/21 23:35 36.4 C L 97 H 18 124/69 95 06/23/21 20:30 36.9 C 96 H 16 123/72 94 06/23/21 16:33 107 H 20 121/76 95 06/23/21 15:38 36.5 C 106 H 20 121/78 95 Pain Intensity Left Arm: Pain Intensity: 2 Transfer of Care Handoff Completed per policy Notes Mental Status: alert / awake / arousable and participated in evaluation Patient Amnestic to Procedure: Yes Nausea / Vomiting: adequately controlled Pain: adequately controlled Airway Patency, RR, SpO2: stable & adequate BP & HR: stable & adequate Hydration State: stable & adequate Anesthetic Complications: no major complications apparent
--- NOTE | 2021-06-24 15:46 | Hospitalist Progress Note ---
Date of Service June 24, 2021 Assessment & Plan (1) Closed fracture of left proximal humerus: (2) Supratherapeutic INR: (3) ABLA (acute blood loss anemia): Plan: 80-year-old male with PMH of HFrEF [2021 TTE EF less than 20%] s/p ICD, CAD s/p stent, LV thrombus on Coumadin, HTN, HLD, COPD, BPH, DM 2 on oral meds, CKD [baseline creatinine 1.3], chronic anemia [baseline Hb 12-13], hypothyroidism and past tobacco abuse presented 06/22 to our ED with complaint of feeling weak since last 2 days CAMPAIGN ADVISOR associated with dizziness and lightheadedness falling to the ground without loss of consciousness, SOB without cough/chest pain, coffee- ground emesis and melanotic stools without belly pain. No recent changes in Coumadin regimen and denies OTC NSAID intake. No such prior episodes per patient. Is being managed for the following: #. Likely duodenitis #. Acute GI bleeding - 2/2 above #. Symptomatic anemia -acute on chronic anemia 2/2 above #. Supratherapeutic INR Patient presented with weakness/shortness of breath/hematemesis/melanotic stools GI bleed likely secondary to duodenal ulcer on the background of Coumadin coagulopathy. Admitting CTAP: Suggestive of nonspecific duodenitis versus peptic ulcer disease, likely blood products and third portion of the duodenum. Numerous tree-in-bud nodules within right greater than left lung bases suggestive of infectious versus inflammatory process. -------------> Admitting procalcitonin 0.10, repeat procal 0.11----> likely inflammatory, await admitting blood culture --> [id number] FOBT positive, admitting hemoglobin 6.8 --> s/p 2 unit PRBC---> hemoglobin currently stable around 9. Admitting INR 8.5 --> s/p prothrombin complex and vitamin K --> INR currently 1.1 GI on board --> ~ 06/24 EGD: Gastritis, biopsied. Duodenitis with inflammation and luminal narrowing, biopsied. f/u biopsy results. ~ Full liquid diet, Protonix 40 mg p.o. daily. No aspirin, ibuprofen, naproxen or other NSAIDs for 6 weeks. Continue with PPI, avoid NSAIDs, H&H every 12 hours or as needed until stablilized Full liq diet Continue to hold Coumadin and aspirin until further recommendation from GI/cardio. Transfuse PRBC to maintain hemoglobin greater than 8 and/or for symptomatic anemia #. Fall -- see above CT C-spine: No acute findings. CXR: Proximal left humerus fracture noted, reticular opacities at the right midlung and base noted likely inflammatory pneumonitis. CT head: No acute findings. Left shoulder x-ray: Acute, comminuted, displaced and impacted fracture of the left proximal humerus with chronic pathologic widening of the left AC joint. Denies pain in the left shoulder while at rest but reports difficulty with moving. Orthopedics on board: Sling for support, limited range of motion, patient awaiting surgery in [place] July 14, 2021. Pain control as needed. #. Increased blood lactate level - resolved #. History of LV thrombus Patient on Coumadin, supratherapeutic INR, received prothrombin complex and vitamin K in the ED, Coumadin subtherapeutic as of now SCDs Continue to hold Coumadin and aspirin until further recommendation from GI/cardio. #. Mild troponin elevation #. Chronic HFrEF -2021 TTE with EF less than 20%, patient euvolemic, status post ICD. Admitting EKG: Sinus tachycardia with occasional PVCs and fusion complexes, no acute ST or T changes. Admitting troponin 0 0.07, minimally up trended, likely demand ischemia Repeat EKG: sinus tachycardia with no acute ST or T changes. Cardiology on board: Appreciate recommendation regarding Coumadin and ASA, gentle hydration only, metoprolol 100 mg is his home dose. Continue telemetry, continue to monitor appreciate cardiology recommendation. #. Other chronic medical conditions: HTN [cautious with meds due to concerns of hypertension due to bleed), HLD, COPD, DM2 on oral meds, hypothyroidism, past tobacco abuse TSH minimally elevated at 5.8 with normal free T4 Continue home medication as and when appropriate. Careful with blood pressure medication. Continue with sliding scale. DVT prophylaxis. SCDs if INR less than 2 while Coumadin on hold Full code Admission and Anticipated Discharge Date Admission Date: June 23, 2021 Subjective Patient seen and examined at bedside for supratherapeutic INR and GI bleed. Patient lying in bed, on room air, NAD, no new acute events overnight. Patient remains n.p.o. for EGD today. Patient denies any fever/chills/chest pain/palpitations/belly pain/other review of symptoms. Patient denies any further bowel movement after hospitalization. Physical Exam Physical Exam: GENERAL: Alert and oriented x3. NAD, on RA. HEENT: No pallor, no icterus. Pupils equal, round and reactive to light. Oral mucosa moist. NECK: No JVD, no neck masses. HEART: S1 and S2 heard. Regular rate and rhythm. No murmur, no gallop. RESPIRATORY SYSTEM: Normal AP diameter. No accessory muscle use. No wheezing, no crackles. ABDOMEN: Soft, bowel sounds present, nontender, no distention. CENTRAL NERVOUS SYSTEM: No facial droop. Speech is clear. Obeys simple commands. Moves extremities. EXTREMITIES: No edema, no erythema seen. Results & Data Results & Data ([facility]) Vital Signs (Past 12 Hours) Vital Signs Temp Pulse Pulse Resp BP BP Pulse Ox 06/24/21 15:38 91/51 L 06/24/21 15:00 60 14 88/43 L 93 06/24/21 14:25 63 16 98/48 L 93 06/24/21 14:10 62 16 89/44 L 95 06/24/21 13:55 65 16 85/47 L 98 06/24/21 12:54 36.3 C L 69 18 105/59 L 94 06/24/21 11:58 71 15 95/56 L 95 06/24/21 08:00 36.7 C 84 16 119/61 96 06/24/21 04:00 36.8 C 87 14 132/68 95
[2021-06-24] MEDS: PANTOprazole 40 MG TAB PO SCH (18:23)
[2021-06-24 23:16] LABS: Hematocrit (blood only) 25.6 % (42-52); Hemoglobin 8.5 g/dL (14.0-18.0)
[2021-06-25] MEDS: PROMETHAZINE HCL 12.5 MG in SODIUM CHLORIDE 0.9% 50 ML IV PRN (03:02)
[2021-06-25] MEDS: LEVOTHYROXINE SODIUM 100 MCG TABLET PO SCH (06:30)
[2021-06-25 07:39] LABS: INR 1.1 (0.9-1.1); Prothrombin Time 10.9 Seconds (9.0-12.0)
[2021-06-25 07:46] LABS: Hematocrit (blood only) 22.6 % (42-52); Hemoglobin 7.4 g/dL (14.0-18.0); Mean Corpuscular Hemoglobin 29.1 pg (25-34); Mean Platelet Volume 10.2 fL (7.4-10.4); Nucleated RBC # (auto) 0.08 K/uL (0-0); Nucleated RBC % (auto) 0.7 %; Platelet Count 138 K/uL (130-400); RDW Standard Deviation 54.2 fL (36.4-46.3); Red Blood Count 2.54 M/uL (4.7-6.1); White Blood Count 10.57 K/uL (4.8-10.8)
[2021-06-25 07:51] LABS: Mean Corpuscular Hgb Conc 32.7 g/dL (32-36)
[2021-06-25 08:01] LABS: BUN Creatinine Ratio 36.4 (10-20); Calcium 7.5 mg/dl (8.5-10.1); Creatinine Clr Calc Pharmacy 70.3 ml/min; Est GFR (African American) 94.7 ml/min; Est GFR (Non-African American) 81.7 ml/min
[2021-06-25] MEDS ORDERED: SODIUM CHLORIDE 0.9% 250 ML IV PRN (08:40)
[2021-06-25] MEDS: ATORVASTATIN 40 MG TAB PO SCH (08:45)
[2021-06-25] MEDS: PANTOprazole 40 MG TAB PO SCH ×2 (08:45→21:26)
[2021-06-25] MEDS: GABAPENTIN 100 MG CAP PO SCH ×2 (08:48→21:26)
[2021-06-25] MEDS: INSULIN ASPART PER UNIT SC SCH ×4 (08:56→21:25)
[2021-06-25] MEDS: INSULIN GLARGINE SOLOSTAR 100 UNITS/ML 3 ML PEN SC SCH (08:56)
[2021-06-25] MEDS: METOPROLOL SUCC 50MG EXT REL TAB PO SCH (11:17)
[2021-06-25] MEDS: ISOSORBIDE MONO EXTENDED REL 30 MG TABCR PO SCH (11:17)
[2021-06-25] MEDS: ceFAZolin 2000MG 2,000 MG/15 ML SYR IV SCH ×2 (11:18→17:43)
--- NOTE | 2021-06-25 14:26 | Cardiology Progress Note ---
Date of Service June 25, 2021 Assessment & Plan (1) Acute GI bleeding: (2) LV (left ventricular) mural thrombus: (3) Ischemic cardiomyopathy: Plan: 80-year-old male with longstanding history of coronary heart disease, severe ischemic cardiomyopathy, at time of echocardiogram 01/06/2020, left ventricular mural thrombus noted, prompting initiation of Coumadin, INR goal 22.5. Most recent echocardiogram 06/21/2021 with ongoing severe left ventricular systolic dysfunction, ejection fraction 20%, no LV mural thrombus noted at that time on anticoagulation. Patient presented 06/23/2021 with subjective dizziness, coffee-ground emesis. Hemoglobin on presentation 7.5 g/dL, increased to 10.4 transfusion, back down to 7.4 today. INR at time of presentation 8.5, received reversal of anticoagulation, INR 06/25/2021 =1.1. EGD with findings of luminal narrowing at the duodenal bulb. Biopsies taken. Case discussed with GI, remain off of anticoagulation for now. Overall, benefits of anticoagulation may be outweighed by bleeding risks moving forward. Plan status stable. Remains on Protonix. Chronic oral diuretic on hold at present, will likely need to be reinitiated at some point. Admission and Anticipated Discharge Date Admission Date: June 23, 2021 Subjective Patient seen in cardiology follow-up. No acute complaints. Receiving transfusion packed red blood cells at the time of my assessment. Telemetry revealed sinus rhythm in the 60s. Physical Exam Constitutional: no acute distress Respiratory: normal respiratory effort, lungs clear to auscultation Cardiovascular: RRR, no murmur, no edema Gastrointestinal (Abdomen): normal bowel sounds, soft, nontender, no hepatosplenomegaly Neurologic: PERRL, EOMI, accommodation nl, no face palsy, no dysarthria Results & Data ([facility]) Vital Signs (Past 12 Hours) Vital Signs Temp Pulse Pulse Pulse Resp BP BP 06/25/21 12:15 36.6 C 62 18 93/54 L 06/25/21 11:51 36.8 C 65 17 103/57 L 06/25/21 10:51 36.5 C 61 18 97/60 L 06/25/21 10:21 36.5 C 59 L 18 97/60 L 06/25/21 10:06 36.7 C 63 18 94/55 L 06/25/21 09:44 36.7 C 65 18 97/50 L 06/25/21 07:59 36.7 C 73 17 97/54 L 06/25/21 03:54 36.5 C 65 18 107/66 Pulse Ox 06/25/21 12:15 96 06/25/21 11:51 98 06/25/21 10:51 98 06/25/21 10:21 98 06/25/21 10:06 97 06/25/21 09:44 97 06/25/21 07:59 94 06/25/21 03:54 93 Laboratory Results EKG performed 06/22/2021: Sinus tachycardia 109 bpm, right bundle branch block, age-indeterminate inferior infarct pattern, age-indeterminate anterolateral infarct pattern.
--- NOTE | 2021-06-25 16:24 | Hospitalist Progress Note ---
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 No recent changes in Coumadin regimen and denies OTC NSAID intake. No such prior episodes per patient. Is being managed for the following: #. Likely duodenitis #. Acute GI bleeding - 2/2 above #. Symptomatic anemia -acute on chronic anemia 2/2 above #. Supratherapeutic INR Patient presented with weakness/shortness of breath/hematemesis/melanotic stools GI bleed likely secondary to duodenal ulcer on the background of Coumadin coagulopathy. Admitting CTAP: Suggestive of nonspecific duodenitis versus peptic ulcer disease, likely blood products and third portion of the duodenum. Numerous tree-in-bud nodules within right greater than left lung bases suggestive of infectious versus inflammatory process. -------------> Admitting procalcitonin 0.10, repeat procal 0.11----> likely inflammatory, await admitting blood culture --> GPC noted 06/25 --> cefazolin started, f/u final results FOBT positive, admitting hemoglobin 6.8 --> s/p 3 unit PRBC---> getting 3rd unit blood transfusion today, follow-up with hemoglobin at 10 PM. Admitting INR 8.5 --> s/p prothrombin complex and vitamin K --> INR currently 1.1 GI on board --> ~ 06/24 EGD: Gastritis, biopsied. Duodenitis with inflammation and luminal narrowing, biopsied. f/u biopsy results. ~ Full liquid diet, Protonix 40 mg p.o. daily. No aspirin, ibuprofen, naproxen or other NSAIDs for 6 weeks. Continue with PPI, avoid NSAIDs, H&H every 12 hours or as needed until stablilized Full liq diet Continue to hold Coumadin and aspirin until further recommendation from GI/cardio. Transfuse PRBC to maintain hemoglobin greater than 8 and/or for symptomatic anemia #. Mild troponin elevation #. Chronic HFrEF -2021 TTE with EF less than 20%, patient euvolemic, status post ICD. Admitting EKG: Sinus tachycardia with occasional PVCs and fusion complexes, no acute ST or T changes. Admitting troponin 0 0.07, minimally up trended, likely demand ischemia Repeat EKG: sinus tachycardia with no acute ST or T changes. Cardiology on board: Appreciate recommendation regarding Coumadin and ASA, gentle hydration only, metoprolol 100 mg is his home dose. Continue telemetry, continue to monitor appreciate cardiology recommendation. #. History of LV thrombus Patient on Coumadin, supratherapeutic INR, received prothrombin complex and vitamin K in the ED, Coumadin subtherapeutic as of now SCDs Continue to hold Coumadin and aspirin until further recommendation from GI/cardio. #. Fall -- see above CT C-spine: No acute findings. CXR: Proximal left humerus fracture noted, reticular opacities at the right midlung and base noted likely inflammatory pneumonitis. CT head: No acute findings. Left shoulder x-ray: Acute, comminuted, displaced and impacted fracture of the left proximal humerus with chronic pathologic widening of the left AC joint. Denies pain in the left shoulder while at rest but reports difficulty with moving. Orthopedics on board: Sling for support, limited range of motion, patient awaiting surgery in [place] July 14, 2021. Pain control as needed. #. Other chronic medical conditions: HTN [cautious with meds due to concerns of hypertension due to bleed), HLD, COPD, DM2 on oral meds, hypothyroidism, past tobacco abuse TSH minimally elevated at 5.8 with normal free T4 Continue home medication as and when appropriate. Careful with blood pressure medication. Continue with sliding scale. DVT prophylaxis. SCDs if INR less than 2 while Coumadin on hold Full code Admission and Anticipated Discharge Date Admission Date: June 23, 2021 Subjective Patient seen and examined at bedside for supratherapeutic INR and GI bleed. Patient lying in bed, on room air, NAD, no new acute events overnight. Patient on full liquid diet, tolerating. Patient denies any fever/chills/chest pain/palpitations/belly pain/other review of symptoms. Patient denies any bowel movement after hospitalization. RN unaware of any bowel movements, also unaware of any new acute events overnight. Physical Exam Physical Exam: GENERAL: Alert and oriented x3. NAD, on RA. HEENT: No pallor, no icterus. Pupils equal, round and reactive to light. Oral mucosa moist. NECK: No JVD, no neck masses. HEART: S1 and S2 heard. Regular rate and rhythm. No murmur, no gallop. RESPIRATORY SYSTEM: Normal AP diameter. No accessory muscle use. No wheezing, no crackles. ABDOMEN: Soft, bowel sounds present, nontender, no distention. CENTRAL NERVOUS SYSTEM: No facial droop. Speech is clear. Obeys simple commands. Moves extremities. EXTREMITIES: No edema, no erythema seen. Results & Data Results & Data ([facility]) Vital Signs (Past 12 Hours) Vital Signs Temp Pulse Pulse Resp BP BP BP 06/25/21 15:26 36.6 C 65 17 98/55 L 06/25/21 12:15 36.6 C 62 18 93/54 L 06/25/21 11:51 36.8 C 65 17 103/57 L 06/25/21 10:51 36.5 C 61 18 97/60 L 06/25/21 10:21 36.5 C 59 L 18 97/60 L 06/25/21 10:06 36.7 C 63 18 94/55 L 06/25/21 09:44 36.7 C 65 18 97/50 L 06/25/21 07:59 36.7 C 73 17 97/54 L Pulse Ox 06/25/21 15:26 96 06/25/21 12:15 96 06/25/21 11:51 98 06/25/21 10:51 98 06/25/21 10:21 98 06/25/21 10:06 97 06/25/21 09:44 97 06/25/21 07:59 94
[2021-06-25 22:48] LABS: Hematocrit (blood only) 26.6 % (42-52); Hemoglobin 8.8 g/dL (14.0-18.0)
[2021-06-26] MEDS: ceFAZolin 2000MG 2,000 MG/15 ML SYR IV SCH ×3 (01:56→17:12)
[2021-06-26] MEDS: LEVOTHYROXINE SODIUM 100 MCG TABLET PO SCH (06:08)
[2021-06-26 06:22] LABS: INR 1.1 (0.9-1.1); Prothrombin Time 11.1 Seconds (9.0-12.0)
[2021-06-26 06:23] LABS: Hematocrit (blood only) 27.6 % (42-52); Hemoglobin 8.9 g/dL (14.0-18.0); Mean Corpuscular Hgb Conc 32.2 g/dL (32-36); Mean Corpuscular Volume 89.9 fL (80-100); Mean Platelet Volume 10.1 fL (7.4-10.4); Nucleated RBC # (auto) 0.06 K/uL (0-0); Nucleated RBC % (auto) 0.8 %; Platelet Count 146 K/uL (130-400); RDW Coefficient of Variation 16.7 % (11.5-14.5); RDW Standard Deviation 53.3 fL (36.4-46.3); Red Blood Count 3.07 M/uL (4.7-6.1); White Blood Count 7.32 K/uL (4.8-10.8)
[2021-06-26 06:37] LABS: BUN Creatinine Ratio 17.9 (10-20); Calcium 7.4 mg/dl (8.5-10.1); Creatinine Clr Calc Pharmacy 73.6 ml/min; Est GFR (African American) 96.5 ml/min; Est GFR (Non-African American) 83.3 ml/min; Potassium 3.6 mmol/L (3.5-5.1)
[2021-06-26] MEDS: GABAPENTIN 100 MG CAP PO SCH ×2 (09:06→21:34)
[2021-06-26] MEDS: ATORVASTATIN 40 MG TAB PO SCH (09:06)
[2021-06-26] MEDS: INSULIN GLARGINE SOLOSTAR 100 UNITS/ML 3 ML PEN SC SCH (09:06)
[2021-06-26] MEDS: PANTOprazole 40 MG TAB PO SCH ×2 (09:07→21:34)
[2021-06-26] MEDS: METOPROLOL SUCC 50MG EXT REL TAB PO SCH (09:12)
[2021-06-26] MEDS: ISOSORBIDE MONO EXTENDED REL 30 MG TABCR PO SCH (09:12)
[2021-06-26] MEDS: INSULIN ASPART PER UNIT SC SCH ×4 (09:14→21:33)
--- NOTE | 2021-06-26 11:20 | Cardiology Progress Note ---
Date of Service June 26, 2021 Assessment & Plan (1) Acute GI bleeding: (2) LV (left ventricular) mural thrombus: (3) Ischemic cardiomyopathy: Plan: 80-year-old male with longstanding history of coronary heart disease, severe ischemic cardiomyopathy, at time of echocardiogram 01/06/2020, left ventricular mural thrombus noted, prompting initiation of Coumadin, INR goal 22.5. Most recent echocardiogram 06/21/2021 with ongoing severe left ventricular systolic dysfunction, ejection fraction 20%, no LV mural thrombus noted at that time on anticoagulation. Patient presented 06/23/2021 with subjective dizziness, coffee-ground emesis. Hemoglobin on presentation 7.5 g/dL, increased to 10.4 transfusion, back down to 7.4 grams per deciliter 06/25/2021, 8.9 g/dL 06/26/2021. INR at time of presentation 8.5 reversed ---> INR 06/25/2021 =1.1. EGD with findings of luminal narrowing at the duodenal bulb. Biopsies taken. Case discussed with GI, remain off of anticoagulation for now. Overall, benefits of anticoagulation may be outweighed by bleeding risks moving forward. Plan status stable. Remains on Protonix. Chronic oral diuretic on hold at present, will likely need to be reinitiated at some point. Admission and Anticipated Discharge Date Admission Date: June 23, 2021 Subjective Patient seen and examined. Tolerated transfusion packed red blood cells 06/25/2021 without incident, denies shortness of breath. Only subjective complaint is some pain on his scalp. Nursing reports to me that he has not had a bowel movement in the last 24 hours. Telemetry reveals sinus rhythm with ventricular paced QRS complexes. Physical Exam Physical Exam: Temp Pulse Resp BP Pulse Ox 36.7 C 76 17 102/55 L 97 06/26/21 11:04 06/26/21 11:04 06/26/21 11:04 06/26/21 11:04 06/26/21 11:04 Constitutional: no acute distress Respiratory: normal respiratory effort, lungs clear to auscultation Cardiovascular: RRR, no murmur, no edema Gastrointestinal (Abdomen): normal bowel sounds, soft, nontender, no hepatosplenomegaly Neurologic: PERRL, EOMI, accommodation nl, no face palsy, no dysarthria Results & Data ([facility]) Vital Signs (Past 12 Hours) Vital Signs Temp Pulse Pulse Pulse Resp BP Pulse Ox 06/26/21 11:04 36.7 C 76 17 102/55 L 97 06/26/21 08:23 36.5 C 83 17 112/63 97 06/26/21 07:40 71 06/26/21 03:28 74 06/26/21 03:19 36.7 C 75 18 107/58 L 97 06/26/21 00:06 37.0 C 77 16 110/47 L 95 Laboratory Results Coagulation 06/26/21 Range/Units 05:39 PT 11.1 (9.0-12.0) Seconds CBC 06/25/21 06/26/21 Range/Units 22:38 05:39 WBC 7.32 (4.8-10.8) K/uL RBC 3.07 L (4.7-6.1) M/uL Hgb 8.8 L 8.9 L (14.0-18.0) g/dL Hct 26.6 L 27.6 L (42-52) % Plt Count 146 (130-400) K/uL Comprehensive Metabolic Panel 06/26/21 Range/Units 05:39 Sodium 139 (136-145) mmol/L Potassium 3.6 (3.5-5.1) mmol/L Chloride 107 (98-107) mmol/L Carbon Dioxide 28 (21-32) mmol/L BUN 15 (6-23) mg/dl Creatinine 0.84 (0.6-1.4) mg/dl Glucose 98 (70-99(Fasting)) mg/dl Calcium 7.4 L (8.5-10.1) mg/dl Intake and Output 06/25/21 06/26/21 06/26/21 22:59 06:59 14:59 Intake Total 150 / 1260 150 / 1260 Output Total 200 / 1125 250 / 1125 Balance -50 / 135 -100 / 135 Intake: Oral 150 / 950 150 / 950 Output: Urine 200 / 1125 250 / 1125 Other: Weight 85.6 kg Weight Measurement Method Built in [facility]
--- NOTE | 2021-06-26 15:38 | Hospitalist Progress Note ---
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 No recent changes in Coumadin regimen and denies OTC NSAID intake. No such prior episodes per patient. Is being managed for the following: #. Likely duodenitis #. Acute GI bleeding - 2/2 above #. Symptomatic anemia -acute on chronic anemia 2/2 above #. Supratherapeutic INR Patient presented with weakness/shortness of breath/hematemesis/melanotic stools GI bleed likely secondary to duodenal ulcer on the background of Coumadin coagulopathy. Admitting CTAP: Suggestive of nonspecific duodenitis versus peptic ulcer disease, likely blood products and third portion of the duodenum. Numerous tree-in-bud nodules within right greater than left lung bases suggestive of infectious versus inflammatory process. -------------> Admitting procalcitonin 0.10, repeat procal 0.11----> likely inflammatory, await admitting blood culture --> GPC noted 06/25 --> cefazolin started, f/u final results FOBT positive, admitting hemoglobin 6.8 --> s/p 3 unit PRBC---> follow up with hemoglobin in the evening. Admitting INR 8.5 --> s/p prothrombin complex and vitamin K --> INR currently 1.1 GI on board --> ~ 06/24 EGD: Gastritis, biopsied. Duodenitis with inflammation and luminal narrowing, biopsied. f/u biopsy results. ~ Full liquid diet, Protonix 40 mg p.o. daily. No aspirin, ibuprofen, naproxen or other NSAIDs for 6 weeks. Continue with PPI, avoid NSAIDs, H&H every 12 hours or as needed until stablilized Full liq diet Continue to hold Coumadin and aspirin until further recommendation from GI/cardio. Bleeding risk outweigh the benefits of anticoagulation per cardio. Transfuse PRBC to maintain hemoglobin greater than 8 and/or for symptomatic anemia #. Mild troponin elevation #. Chronic HFrEF -2021 TTE with EF less than 20%, patient euvolemic, status post ICD. Admitting EKG: Sinus tachycardia with occasional PVCs and fusion complexes, no acute ST or T changes. Admitting troponin 0 0.07, minimally up trended, likely demand ischemia Repeat EKG: sinus tachycardia with no acute ST or T changes. Cardiology on board: Appreciate recommendation regarding Coumadin and ASA, gentle hydration only, metoprolol 100 mg is his home dose. Continue telemetry, continue to monitor appreciate cardiology recommendation. #. History of LV thrombus Patient on Coumadin, supratherapeutic INR, received prothrombin complex and vitamin K in the ED, Coumadin subtherapeutic as of now SCDs Continue to hold Coumadin and aspirin until further recommendation from GI/cardio. #. Fall -- see above CT C-spine: No acute findings. CXR: Proximal left humerus fracture noted, reticular opacities at the right midlung and base noted likely inflammatory pneumonitis. CT head: No acute findings. Left shoulder x-ray: Acute, comminuted, displaced and impacted fracture of the left proximal humerus with chronic pathologic widening of the left AC joint. Denies pain in the left shoulder while at rest but reports difficulty with moving. Orthopedics on board: Sling for support, limited range of motion, patient awaiting surgery in [place] July 14, 2021. Pain control as needed. #. Other chronic medical conditions: HTN [cautious with meds due to concerns of hypertension due to bleed), HLD, COPD, DM2 on oral meds, hypothyroidism, past tobacco abuse TSH minimally elevated at 5.8 with normal free T4 Continue home medication as and when appropriate. Careful with blood pressure medication. Continue with sliding scale. DVT prophylaxis. SCDs if INR less than 2 while Coumadin on hold Full code Disposition: PT/OT to [facility] to assist with DC planning. Likely DC in next 1 to 2 days if his hemoglobin stays stable. Admission and Anticipated Discharge Date Admission Date: June 23, 2021 Subjective Patient seen and examined at bedside for supratherapeutic INR and GI bleed. Patient lying in bed, on room air, NAD, no new acute events overnight. Patient on full liquid diet, tolerating. Patient denies any fever/chills/chest pain/palpitations/belly pain/other review of symptoms. Patient denies any bowel movement after hospitalization. Physical Exam Physical Exam: GENERAL: Alert and oriented x3. NAD, on RA. HEENT: No pallor, no icterus. Pupils equal, round and reactive to light. Oral mucosa moist. NECK: No JVD, no neck masses. HEART: S1 and S2 heard. Regular rate and rhythm. No murmur, no gallop. RESPIRATORY SYSTEM: Normal AP diameter. No accessory muscle use. No wheezing, no crackles. ABDOMEN: Soft, bowel sounds present, nontender, no distention. CENTRAL NERVOUS SYSTEM: No facial droop. Speech is clear. Obeys simple commands. Moves extremities. EXTREMITIES: No edema, no erythema seen. Results & Data Results & Data ([facility]) Vital Signs (Past 12 Hours) Vital Signs Temp Pulse Pulse Resp BP Pulse Ox 06/26/21 11:04 36.7 C 76 17 102/55 L 97 06/26/21 08:23 36.5 C 83 17 112/63 97 06/26/21 07:40 71
[2021-06-26 21:11] LABS: Hematocrit (blood only) 28.2 % (42-52); Hemoglobin 9.3 g/dL (14.0-18.0)
[2021-06-27] MEDS: ceFAZolin 2000MG 2,000 MG/15 ML SYR IV SCH ×2 (01:39→10:05)
[2021-06-27] MEDS: LEVOTHYROXINE SODIUM 100 MCG TABLET PO SCH (06:01)
[2021-06-27 07:23] LABS: Hematocrit (blood only) 27.4 % (42-52); Hemoglobin 8.6 g/dL (14.0-18.0); Mean Corpuscular Hemoglobin 28.4 pg (25-34); Mean Corpuscular Hgb Conc 31.4 g/dL (32-36); Mean Corpuscular Volume 90.4 fL (80-100); Mean Platelet Volume 10.3 fL (7.4-10.4); Platelet Count 170 K/uL (130-400); RDW Coefficient of Variation 16.6 % (11.5-14.5); RDW Standard Deviation 53.3 fL (36.4-46.3); Red Blood Count 3.03 M/uL (4.7-6.1); White Blood Count 7.74 K/uL (4.8-10.8)
[2021-06-27 07:43] LABS: Prothrombin Time 10.5 Seconds (9.0-12.0)
[2021-06-27] MEDS: GABAPENTIN 100 MG CAP PO SCH ×2 (07:43→19:55)
[2021-06-27] MEDS: INSULIN GLARGINE SOLOSTAR 100 UNITS/ML 3 ML PEN SC SCH (07:44)
[2021-06-27] MEDS: PANTOprazole 40 MG TAB PO SCH ×2 (07:44→19:55)
[2021-06-27] MEDS: ATORVASTATIN 40 MG TAB PO SCH (07:44)
[2021-06-27] MEDS: ISOSORBIDE MONO EXTENDED REL 30 MG TABCR PO SCH (07:48)
[2021-06-27] MEDS: INSULIN ASPART PER UNIT SC SCH ×4 (07:48→20:01)
[2021-06-27] MEDS: METOPROLOL SUCC 50MG EXT REL TAB PO SCH (07:48)
--- NOTE | 2021-06-27 12:06 | Cardiology Progress Note ---
Date of Service June 27, 2021 Assessment & Plan (1) Acute GI bleeding: (2) LV (left ventricular) mural thrombus: (3) Ischemic cardiomyopathy: Plan: 80-year-old male with longstanding history of coronary heart disease, severe ischemic cardiomyopathy, at time of echocardiogram 01/06/2020, left ventricular mural thrombus noted, prompting initiation of Coumadin, INR goal 22.5. Most recent echocardiogram 06/21/2021 with ongoing severe left ventricular systolic dysfunction, ejection fraction 20%, no LV mural thrombus noted at that time on anticoagulation. Patient presented 06/23/2021 with subjective dizziness, coffee-ground emesis. Hemoglobin on presentation 7.5 g/dL, increased to 10.4 transfusion, back down to 7.4 grams per deciliter 06/25/2021, 8.9 g/dL 06/26/2021. INR at time of presentation 8.5 reversed ---> INR 06/25/2021 =1.1. EGD with findings of luminal narrowing at the duodenal bulb. Biopsies taken. Case discussed with GI, remain off of anticoagulation for now. Overall, benefits of anticoagulation may be outweighed by bleeding risks moving forward. Plan status stable. Remains on Protonix. Chronic oral diuretic on hold at present, will likely need to be reinitiated at some point. Admission and Anticipated Discharge Date Admission Date: June 23, 2021 Supervising Physician Co-Signing Physician Notes Patient seen and examined with Patrice Cheung PA-C. Agree with findings and assessment as above. Physical Exam Physical Exam: General: Awake, alert and oriented x 3. No acute distress. HEENT: Normocephalic, atraumatic. Pupils equal, round and reactive to light and accommodation. Extraocular muscles are intact. Anicteric sclera. Moist mucous membranes. Neck: No JVD. No bruit. Cardiovascular: Regular. Positive S-4. Normal S-1 and S-2. No S-3. 3/6 mid to late systolic ejection murmur, greatest at the right sternal border, second intercostal space with radiation to the bilateral carotids. No rubs. Pulmonary: Clear to auscultation bilaterally. No rales, rhonchi, or wheezing. Abdomen: Bowel sounds x 4, soft. No rebound, guarding or tenderness. No organomegaly. Extremities: No clubbing, cyanosis or edema. +2 pedal pulses bilaterally. Skin: Warm and dry. Results & Data ([facility]) Vital Signs (Past 12 Hours) Vital Signs Temp Pulse Pulse Pulse Resp BP Pulse Ox 06/27/21 12:01 37.0 C 68 20 100/60 95 06/27/21 08:00 36.7 C 64 68 17 101/56 L 95 06/27/21 03:26 36.4 C L 68 20 102/59 L 95 06/27/21 03:00 06/27/21 00:25 76 Pulse Ox 06/27/21 12:01 06/27/21 08:00 06/27/21 03:26 06/27/21 03:00 96 06/27/21 00:25
--- NOTE | 2021-06-27 14:30 | Hospitalist Progress Note ---
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 No recent changes in Coumadin regimen and denies OTC NSAID intake. No such prior episodes per patient. Is being managed for the following: #. Likely duodenitis #. Acute GI bleeding - 2/2 above #. Symptomatic anemia -acute on chronic anemia 2/2 above #. Supratherapeutic INR Patient presented with weakness/shortness of breath/hematemesis/melanotic stools GI bleed likely secondary to duodenal ulcer on the background of Coumadin coagulopathy. Admitting CTAP: Suggestive of nonspecific duodenitis versus peptic ulcer disease, likely blood products and third portion of the duodenum. Numerous tree-in-bud nodules within right greater than left lung bases suggestive of infectious versus inflammatory process. -------------> Admitting procalcitonin 0.10, repeat procal 0.11----> likely inflammatory, await admitting blood culture --> GPC noted 06/25 --> cefazolin started --> CONS, not lugudensis 1 out of 4 positive, likely contaminant, DC ATB. FOBT positive, admitting hemoglobin 6.8 --> s/p 3 unit PRBC---> follow up with hemoglobin in the evening. Admitting INR 8.5 --> s/p prothrombin complex and vitamin K --> INR currently 1.0 GI on board --> ~ 06/24 EGD: Gastritis, biopsied. Duodenitis with inflammation and luminal narrowing, biopsied. f/u biopsy results. ~ No aspirin, ibuprofen, naproxen or other NSAIDs for 6 weeks. Continue with PPI, avoid NSAIDs, H&H every 12 hours or as needed until stablilized Mechanical soft diet 06/27 d/w GI --> Pt will need referral to a tertiary center if pathology shows malignancy. 06/27 d/w Cardio --> resume aspirin, stop warfarin upon DC, f/u with cardio in 4 weeks upon DC to determine on Anticoagulation. Transfuse PRBC to maintain hemoglobin greater than 8 and/or for symptomatic anemia #. Mild troponin elevation #. Chronic HFrEF -2021 TTE with EF less than 20%, patient euvolemic, status post ICD. Admitting EKG: Sinus tachycardia with occasional PVCs and fusion complexes, no acute ST or T changes. Admitting troponin 0 0.07, minimally up trended, likely demand ischemia Repeat EKG: sinus tachycardia with no acute ST or T changes. Cardiology on board: Appreciate recommendation regarding Coumadin and ASA, gentle hydration only, metoprolol 100 mg is his home dose. Continue telemetry, continue to monitor appreciate cardiology recommendation. #. History of LV thrombus Patient on Coumadin, supratherapeutic INR, received prothrombin complex and vitamin K in the ED, Coumadin subtherapeutic as of now SCDs DC warfarin upon DC, see above, pt made aware and agrees to f/u with cardio in 4 weeks upon DC for discussion on warfarin. #. Fall -- see above CT C-spine: No acute findings. CXR: Proximal left humerus fracture noted, reticular opacities at the right midlung and base noted likely inflammatory pneumonitis. CT head: No acute findings. Left shoulder x-ray: Acute, comminuted, displaced and impacted fracture of the left proximal humerus with chronic pathologic widening of the left AC joint. Denies pain in the left shoulder while at rest but reports difficulty with moving. Orthopedics on board: Sling for support, limited range of motion, patient awaiting surgery in [place] July 14, 2021. Pain control as needed. #. Other chronic medical conditions: HTN [cautious with meds due to concerns of hypertension due to bleed), HLD, COPD, DM2 on oral meds, hypothyroidism, past tobacco abuse TSH minimally elevated at 5.8 with normal free T4 Continue home medication as and when appropriate. Careful with blood pressure medication. Continue with sliding scale. DVT prophylaxis. SCDs if INR less than 2 while Coumadin on hold Full code Disposition: PT/OT to [facility] to assist with DC planning. Medically stable as of now for DC. Will benefit from atleast as he lives alone with roc no close family support but will leave it upto PT/OT eval . 06/27/21: Patient's brother and primary contact Cesar was given a phone call and updated about the current status of the patient. Updated about why warfarin needs to be stopped and the risks of bleeding associated with it which will outweigh the benefits of warfarin on him, also the need to follow-up with his biopsy results from endoscopy/upper and the need to follow-up with tertiary care center if those pathology turns out malignant. Answered all his questions. He voiced understanding and was agreeable to the plan of care. Admission and Anticipated Discharge Date Admission Date: June 23, 2021 Subjective Patient seen and examined at bedside for supratherapeutic INR and GI bleed. Patient sitting up in chair, on room air, NAD, no new acute events overnight. Patient on full liquid diet, will advance to soft mechanical diet.. Patient denies any fever/chills/chest pain/palpitations/belly pain/other review of symptoms. Patient has not had any bowel movement after hospitalization. Physical Exam Physical Exam: GENERAL: Alert and oriented x3. NAD, on RA. HEENT: No pallor, no icterus. Pupils equal, round and reactive to light. Oral mucosa moist. NECK: No JVD, no neck masses. HEART: S1 and S2 heard. Regular rate and rhythm. No murmur, no gallop. RESPIRATORY SYSTEM: Normal AP diameter. No accessory muscle use. No wheezing, no crackles. ABDOMEN: Soft, bowel sounds present, nontender, no distention. CENTRAL NERVOUS SYSTEM: No facial droop. Speech is clear. Obeys simple commands. Moves extremities. EXTREMITIES: No edema, no erythema seen. Results & Data Results & Data ([facility]) Vital Signs (Past 12 Hours) Vital Signs Temp Pulse Pulse Pulse Resp BP Pulse Ox 06/27/21 12:01 37.0 C 68 20 100/60 95 06/27/21 08:00 36.7 C 64 68 17 101/56 L 95 06/27/21 03:26 36.4 C L 68 20 102/59 L 95 06/27/21 03:00 Pulse Ox 06/27/21 12:01 06/27/21 08:00 06/27/21 03:26 06/27/21 03:00 96
[2021-06-27] MEDS: ASPIRIN 81 MG ECTAB PO SCH (17:41)
[2021-06-27 22:40] LABS: Hematocrit (blood only) 27.8 % (42-52); Hemoglobin 8.9 g/dL (14.0-18.0)
[2021-06-28] MEDS: PROMETHAZINE HCL 12.5 MG in SODIUM CHLORIDE 0.9% 50 ML IV PRN (01:14)
[2021-06-28] MEDS: LEVOTHYROXINE SODIUM 100 MCG TABLET PO SCH (05:07)
[2021-06-28 06:53] LABS: Hematocrit (blood only) 29.4 % (42-52); Hemoglobin 9.4 g/dL (14.0-18.0)
[2021-06-28] MEDS: INSULIN GLARGINE SOLOSTAR 100 UNITS/ML 3 ML PEN SC SCH (08:29)
[2021-06-28] MEDS: PANTOprazole 40 MG TAB PO SCH (08:34)
[2021-06-28] MEDS: INSULIN ASPART PER UNIT SC SCH ×2 (08:34→12:09)
[2021-06-28] MEDS: ATORVASTATIN 40 MG TAB PO SCH (08:35)
[2021-06-28] MEDS: ISOSORBIDE MONO EXTENDED REL 30 MG TABCR PO SCH (08:35)
[2021-06-28] MEDS: GABAPENTIN 100 MG CAP PO SCH (08:35)
[2021-06-28] MEDS: METOPROLOL SUCC 50MG EXT REL TAB PO SCH (08:35)
[2021-06-28] MEDS: ASPIRIN 81 MG ECTAB PO SCH (08:35)
--- NOTE | 2021-06-28 10:28 | Communication Note ---
Date of Service: June 28, 2021 I was able to review the the patient's pathology from last week. There appears to be no evidence of malignancy with the present biopsies. Given this I would suggest use of Protonix or omeprazole 40 mg twice daily for 12 weeks to allow for ulcer healing. Then reduce to 1 time daily thereafter. I would also suggest use of Carafate 1 g twice daily for 6 weeks. We will plan on repeating an upper endoscopy in 8 to 12 weeks. Please call with any questions or concerns A. Duodenum, biopsy: - Chronic active duodenitis with ulceration - Negative for histologic features of sprue - Negative for parasites - Negative for dysplasia and malignancy B. Stomach, biopsy: - Chronic active gastritis - Negative for intestinal metaplasia, dysplasia and malignancy - Negative for Helicobacter pylori organisms
[2021-06-28] MEDS ORDERED: SUCRALFATE 1 GM TAB PO SCH (10:45)
--- NOTE | 2021-06-28 10:57 | Cardiology Progress Note ---
Date of Service June 28, 2021 Assessment & Plan (1) Acute GI bleeding: (2) LV (left ventricular) mural thrombus: (3) Ischemic cardiomyopathy: Plan: 80-year-old male with longstanding history of coronary heart disease, severe ischemic cardiomyopathy, chronic systolic congestion heart failure, status post dual chamber pacemaker defibrillatory implantation, prior history of LV mural thrombus. Resting echocardiography on June 21, 2021 revealed an extensive ar ea of myocardial thinning and akinesis involving the anterior, anteroseptal, inferoseptal, inferior and apical monterroso with qualitative LV ejection fraction <20%, with severely abnormal left ventricular diastolic function. No significant valvular pathology noted. No left ventricular mural thrombus observed. Patient presented 06/23/2021 with subjective dizziness, coffee-ground emesis. INR on presentation was 8.5. Hemoglobin on presentation was 7.5 g/dL, status post transfusion. EGD with findings of luminal narrowing at the duodenal bulb. Case discussed with GI, remain off of anticoagulation for now. Overall, benefits of anticoagulation may be outweighed by bleeding risks moving forward. Continue cardiac medications as presently prescribed. Furosemide currently on hold with patient notably very good at maintaining an acceptable volume status with self adjustments in furosemide. Outpatient cardiology follow-up scheduled for 07/05/2021. Admission and Anticipated Discharge Date Admission Date: June 23, 2021 Supervising Physician Co-Signing Physician Notes Patient seen and examined with Patrice Cheung PA-C. Agree with findings and assessment as above. Subjective Patient seen and examined. Chart, medications, and telemetry reviewed. Feeling relatively well. Ambulatory in the hallway without cardiopulmonary symptoms. No chest pain, palpitations, new or worsening dyspnea. Telemetry: Non-monitored bed. No telemetry available for review. Physical Exam Physical Exam: General: A&Ox3. NAD. HENT: Normocephalic. Atraumatic. Eyes: PER. Conjunctiva pink, sclera clear. Neck: Bilateral carotid bruits. No JVD. Heart: Regular with an occasional ectopic beat. Soft apical systolic murmur. No diastolic murmur. No rub. No gallop. PMI is displaced. Lungs: Diminished at the bases. Clear. Abdomen: +BS. Soft. Nontender. No masses or organomegaly. Extremities: Minimal edema. No clubbing. No cyanosis. Healing ecchymosis, right greater than left upper extremities. Limited neurological examination is without focal deficits. Pulses: radial=2/4, posterior tibial=1/4. Results & Data ([facility]) Vital Signs (Past 12 Hours) Vital Signs Temp Pulse Resp BP BP Pulse Ox 06/28/21 07:59 36.5 C 77 16 118/68 96 06/28/21 02:59 36.5 C 67 18 104/61 95 06/27/21 23:21 37.1 C 74 18 112/57 L 94 Laboratory Results Laboratory Results - last 24 hr 06/27/21 06/27/21 06/27/21 11:23 16:13 19:59 Hgb Hct POC Glucose 153 H 120 H 107 H 06/27/21 06/28/21 06/28/21 22:26 06:22 07:26 Hgb 8.9 L 9.4 L Hct 27.8 L 29.4 L POC Glucose 124 H
--- NOTE | 2021-06-28 11:06 | Discharge Summary ---
Date of Service June 28, 2021 Admission HPI Per Admitting Provider History obtained from patient and records. Medical history significant for chronic systolic heart failure secondary to ischemic cardiomyopathy (EF less than 20%, TTE 2021) status post ICD CAD status post stent, history LV thrombus on Coumadin, hypertension, hyperlipidemia, COPD, BPH, DM2 on oral medications, CRI (baseline creatinine 1.3 ), chronic anemia (baseline hemoglobin 12 to 13), hypothyroidism, past tobacco abuse. Patient felt weak the last 2 days. Dizzy and lightheaded falling to the ground without LOC, headache symptoms. Short of breath without unusual cough or chest pain symptoms. Usual cough symptoms from "silicosis" as per patient. Patient subsequently had coffee-ground emesis and melanotic stools without abdominal pain. No prior episodes as per patient. No recent changes in Coumadin regimen. Denies OTC NSAID intake. Patient brought to the ER for evaluation. INR noted to be 8.5. Vitamin K and Kcentra administered at the ER. IV PPI initiated for UGI bleed. 1 unit packed RBC transfused at the ER. Medical History as above 2019 EGD showed gastritis 2010 colonoscopy showed colonic inflammation. 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 Admission Exam Per Admitting Provider GENERAL: Comfortable, pleasant, slightly hard of hearing no respiratory distress SKIN: Pallor,, warm HEENT: Pale palpebral conjunctivae, no ptosis, dry buccal mucosa NECK : Supple, no tenderness CHEST : Decreased breath sounds, no tenderness HEART : Tachycardic, diminished S1 S2, no obvious murmurs ABDOMEN: Some distention, no overt tenderness EXTREMITIES : No LE swelling/tenderness, no other conspicuous deformities noted NEUROLOGIC : Coherent, no facial asymmetry, slightly hard of hearing, no other gross focality Principal Diagnosis Fall and proximal left humerus fracture Supratherapeutic INR Acute GI bleeding secondary to chronic active duodenitis with ulceration and chronic active gastritis Discharge Exam GENERAL: Alert and oriented x3. NAD, on RA. HEENT: No pallor, no icterus. Pupils equal, round and reactive to light. Oral mucosa moist. NECK: No JVD, no neck masses. HEART: S1 and S2 heard. Regular rate and rhythm. No murmur, no gallop. RESPIRATORY SYSTEM: Normal AP diameter. No accessory muscle use. No wheezing, no crackles. ABDOMEN: Soft, bowel sounds present, nontender, no distention. CENTRAL NERVOUS SYSTEM: No facial droop. Speech is clear. Obeys simple commands. Moves extremities. EXTREMITIES: No edema, no erythema seen. Discharge Data Allergies Allergy/AdvReac Type Severity Reaction Status Date / Time No Known Allergies Allergy Verified 06/22/21 22:21 Consultations 06/23/21 00:23 ED Decision to Admit Stat 06/23/21 03:51 Consult Gastroenterology Routine 06/23/21 08:37 Consult Orthopedic Surgery Routine 06/23/21 08:56 Consult Cardiology Routine Procedures Performed Operation Date: 06/24/21 16:30 Actual Procedures p EGD Biopsy Cytology - Jasvir Amador DO Ordered Studies 06/22/21 22:21 CT cervical spine wo con Urgent CT head/brain wo con Urgent 06/22/21 22:35 CT abd pelvis IV con only Urgent Hospital Course (1) Closed fracture of left proximal humerus: (2) Supratherapeutic INR: (3) ABLA (acute blood loss anemia): 80-year-old male with PMH of HFrEF [2021 TTE EF less than 20%] s/p ICD, CAD s/p stent, LV thrombus on Coumadin, HTN, HLD, COPD, BPH, DM 2 on oral meds, CKD [baseline creatinine 1.3], chronic anemia [baseline Hb 12-13], hypothyroidism and past tobacco abuse presented 06/22 to our ED with complaint of feeling weak since last 2 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 No recent changes in Coumadin regimen and denies OTC NSAID intake. No such prior episodes per patient. He was managed for the following: #. Chronic active duodenitis with ulceration #. Chronic active gastritis #. Acute GI bleeding - 2/2 above #. Symptomatic anemia -acute on chronic anemia 2/2 above #. Supratherapeutic INR Patient presented with weakness/shortness of breath/hematemesis/melanotic stools GI bleed likely secondary to duodenal ulcer on the background of Coumadin coagulopathy. Admitting CTAP: Suggestive of nonspecific duodenitis versus peptic ulcer disease, likely blood products and third portion of the duodenum. Numerous tree-in-bud nodules within right greater than left lung bases suggestive of infectious versus inflammatory process. -------------> Admitting procalcitonin 0.10, repeat procal 0.11----> likely inflammatory, await admitting blood culture --> GPC noted 06/25 --> cefazolin started --> CONS, not lugudensis 1 out of 4 positive, likely contaminant, DC ATB. Repeat Bl Cx sent 06/27----> await final results FOBT positive, admitting hemoglobin 6.8 --> s/p 3 unit PRBC---> follow up has been stable Admitting INR 8.5 --> s/p prothrombin complex and vitamin K --> INR currently 1.0 GI on board --> ~ 06/24 EGD: Gastritis, biopsied. Duodenitis with inflammation and luminal narrowing, biopsied.---> Biopsy results negative for malignancy, revealed chronic active duodenitis with ulceration and chronic active gastritis. ~ No aspirin, ibuprofen, naproxen or other NSAIDs for 6 weeks. PPI twice daily for 12 weeks then once daily. Carafate twice daily. Follow-up with GI and primary care physician as an outpatient for continued care and management. You will need upper scope in 8 to 12 weeks. Mechanical soft diet 06/28 d/w GI, recommends Protonix twice daily for 12 weeks and then once daily, follow-up with GI as an outpatient, repeat upper endoscopy in 8 to 12 weeks. 06/27 d/w Cardio --> resume aspirin, stop warfarin upon DC, f/u with cardio in 4 weeks upon DC to determine on Anticoagulation. Patient to get blood work CBC done in a week to ensure the stability of his hemoglobin. #. Mild troponin elevation #. Chronic HFrEF -2021 TTE with EF less than 20%, patient euvolemic, status post ICD. Admitting EKG: Sinus tachycardia with occasional PVCs and fusion complexes, no acute ST or T changes. Admitting troponin 0 0.07, minimally up trended, likely demand ischemia Repeat EKG: sinus tachycardia with no acute ST or T changes. Cardiology on board: Appreciate recommendation regarding Coumadin and ASA, gentle hydration only, metoprolol 100 mg is his home dose. Continue telemetry, continue to monitor appreciate cardiology recommendation. #. History of LV thrombus Patient on Coumadin, supratherapeutic INR, received prothrombin complex and vitamin K in the ED, Coumadin subtherapeutic as of now SCDs DC warfarin upon DC, see above, pt made aware and agrees to f/u with cardio in 4 weeks upon DC for discussion on warfarin. #. Fall -- see above CT C-spine: No acute findings. CXR: Proximal left humerus fracture noted, reticular opacities at the right midlung and base noted likely inflammatory pneumonitis. CT head: No acute findings. Left shoulder x-ray: Acute, comminuted, displaced and impacted fracture of the left proximal humerus with chronic pathologic widening of the left AC joint. Denies pain in the left shoulder while at rest but reports difficulty with moving. Orthopedics on board: Sling for support, limited range of motion, patient awaiting surgery in [place] July 14, 2021. Pain control as needed. #. Other chronic medical conditions: HTN [cautious with meds due to concerns of hypertension due to bleed), HLD, COPD, DM2 on oral meds, hypothyroidism, past tobacco abuse TSH minimally elevated at 5.8 with normal free T4 Continue home medication as and when appropriate. Careful with blood pressure medication. Continue with sliding scale. DVT prophylaxis. SCDs if INR less than 2 while Coumadin on hold Full code Disposition: PT/OT to [facility] to assist with DC planning. Medically stable as of now for DC. Will benefit from atleast as [facility] no close family support but will leave it upto PT/OT eval . 06/27/21: Patient's brother and primary contact Cesar was given a phone call and updated about the current status of the patient. Updated about why warfarin needs to be stopped and the risks of bleeding associated with it which will outweigh the benefits of warfarin on him, also the need to follow-up with his biopsy results from endoscopy/upper and the need to follow-up with tertiary care center if those pathology turns out malignant. Answered all his questions. He voiced understanding and was agreeable to the plan of care. Total Time Total Time Spent Total Time Spent (In Minutes): 45 Discharge Plan Discharge Items Patient Disposition: Home - Self-Care Reason For Visit: ANEMIA, GI BLEED, TROP ELEV Discharge Diagnosis: Fall and proximal left humerus fracture Supratherapeutic INR Acute GI bleeding secondary to chronic active duodenitis with ulceration and chronic active gastritis Activity: Resume your previous activity Non-emergency contact: Primary Care Provider Call non-emergency contact if: you have any medication questions, your symptoms worsen, your pain is not controlled and your temperature is above 101 Follow-up/Referrals: Patrice Cheung [Physician Airplane Rental Clerk] - (Date & Time 07/05/2021 1:00 PM Provider Patrice Cheung PA-C Department Cardiology [facility] ) Kaitlin Barry MD [Primary Care Provider] - (Date & Time 06/29/2021 9:20 AM Provider Jayla Vazquez MD Department Family Medicine [facility] ) Diet: Heart Healthy Diet Texture: Mechanical soft (ground) Addtl Attending Provider Instructions: Follow-up with your primary care physician within a week time. Get your blood work CBC done in a week time. As discussed at the bedside, your repeat blood culture drawn on 06/27 is pending, follow-up with your primary care physician on the final results of the blood culture. Since your blood pressure were on the lower side while in hospital, your furosemide dose has been reduced to half than your prior dose. Currently you are on 40 mg daily. Avoid ibuprofen, naproxen or other NSAIDs for 6 weeks. Your regular home dose of metoprolol is 100 mg daily. In the hospital because of your very high INR and associated GI bleeding; your Coumadin has been stopped upon discharge, follow-up with cardiology in 1 month's time to discuss about Coumadin reinitiation as discussed at the bedside. You can continue with aspirin as before. Also you underwent EGD scope, and biopsy of your duodenum and stomach mucosa which showed chronic active inflammation, you will be discharged on Omeprazole to be taken 40 mg twice daily for 12 weeks and then once daily afterwards. You will also be discharged on Carafate. You will need to follow-up with GI doctor as an outpatient in 2 to 3 months' time for need of repeat upper endoscopy in 8 to 12 weeks. Continue with soft mechanical diet. For your left humerus fracture, follow-up with your scheduled surgery in [place] on July 14, 2021. Take medications as prescribed. Pending Studies at Discharge: Yes (1/30 1 repeat blood culture.) Stand-Alone Forms: My [facility], Smoking Cessation Medications and DC Order Prescriptions: New sucralfate 1 gram Tablet 1 g PO BID Qty: 60 RF: 0 metoprolol succinate 50 mg Tablet Extended Release 24 Hr 100 mg PO DAILY Qty: 60 RF: 0 Continued isosorbide mononitrate 30 mg Tablet Extended Release 24 Hr 30 mg PO QAM RF: 0 aspirin [Aspirin Low Dose] 81 mg Tablet,Delayed Release (Dr/Ec) 81 mg PO QAM RF: 0 metformin 1,000 mg Tablet 1,000 mg PO BID RF: 0 nitroglycerin [Nitrostat] 0.4 mg Tablet, Sublingual 0.4 mg sublingual UD RF: 0 cyanocobalamin (vitamin B-12) 1,000 mcg Capsule 1,000 mcg PO QAM RF: 0 atorvastatin 40 mg tablet 40 mg PO DAILY RF: 0 levothyroxine 100 mcg tablet 100 mcg PO DAILYBB RF: 0 gabapentin 100 mg capsule 100 mg PO AMHS RF: 0 magnesium oxide 400 mg magnesium Tablet 400 mg PO DAILY RF: 0 Changed furosemide 40 mg tablet 40 mg PO DAILY Qty: 0 RF: 0 omeprazole 40 mg Capsule,Delayed Release(Dr/Ec) 40 mg PO BID 84 Days Qty: 168 RF: 0 Discontinued famotidine 20 mg Tablet 20 mg PO HS RF: 0 doxycycline hyclate 100 mg capsule 100 mg PO BID RF: 0 metoprolol succinate 50 mg tablet extended release 24 hr 50 mg PO DAILY RF: 0 warfarin 5 mg tablet See Rx Instructions .ROUTE .COMPLEX RF: 0 Discharge Orders: Discharge Order (Routine); Ordered 06/28/21 Ordered By: Yen Fuentes/Other Patient Handouts: GI Bleeding Causes and Tests Admission Data Admit Date/Time: 06/23/21 01:16 Attending Provider: Yen Vega Admit Provider: Patel Crews Primary Care Provider: Kaitlin Barry Other Providers: Patel Crews ; Ja Dinero ; Roseann Zee ; Arlin Jorgensen ; Elvie Childs ; George Anderson ; Jasvir Amador ; Corazon Crystal ; Ismael Holden ; Yudelka Holt ; Suzy Dewey ; Jaimie Jeffers ; Rand Garner ; Malaika Holloway ; Greg Naik ; Contreras Corrales
--- NOTE | 2021-07-11 15:47 | Coding Query ---
Looking at the GFR towards the end of the discharge, it is stage II. CHRONIC KIDNEY DISEASE To promote full compliance with coding requirements relating to patient care, physician participation is requested in all cases of fishing worker uncertainty. Please assist us with the question(s) below: Coding Question(s): The record reflects the following clinical findings: Please specify the known or suspected type by placing an "X" within the parenthesis (x). If other, please document type. Please document Staging if known: ( ) Stage I >90 Kidney damage with normal or elevated GFR. (x ) Stage II 60-89 Kidney damage with mildly decreased kidney function ( ) Stage III 30-59 Moderately decreased kidney function ( ) Stage IV 15-29 Severely decreased kidney function ( ) Stage V <15 Renal failure (or dialysis) ( ) End Stage ( ) Unknown Thank you Tia SMITH
--- NOTE | 2021-07-11 15:49 | Coding Query ---
History of LV thrombus for which he was on anticoagulation, unable to comment whether there was thrombus during the hospitalization as there was no echo done at the time. and general assumption is that it is his past medical history (like any other history such as stroke or NH) for which he has been started for the treatment in the past. Does is continue to have thrombus as of this hospital admission, i am unable to tell that without echo and hence i would keep it as Past Medical history of LV thrombus for which he has been started on anticoagulation in the past. History of LV thrombus. CODING QUERY To promote full compliance with coding requirements relating to patient care, provider participation is requested in all cases of collateral clerk uncertainty. Please assist us with the question(s) below: Coding Question(s): Please document chronicity of the LV thrombus below. There are times where it appears documented as a chronic condition and other times where it appears documented as a resolved condition. Physician's Response(s): Thank you Tia Loredo Principal Diagnosis: "that condition established after study, to be chiefly responsible for occasioning the admission of the patient to the hospital for care." Co-Existing Principal Diagnosis: "when two or more diagnoses equally meet the criteria for principal diagnosis as determined by the circumstances of admission, diagnostic work up, and/or therapy provided, and the Alphabetic Index, Tabular List, or another coding guideline does not provide sequencing direction, any one of the diagnoses may be sequenced first." "When the physician has documented what appears to be a current diagnosis in the body of the record, but has not included the diagnosis in the final diagnostic statement, the physician should be asked whether the diagnosis should be added." (Source Coding [facility] 2 QTR90. p3-4) LUIS
== END 2021-06-28 13:30 | disposition home or self-care (01) | DRG 378 ==
LOC: ED 22:02 → EDINP 06-23 01:16 → 2S 06-24 16:22
DX: Z79.84 Long term (current) use of oral hypoglycemic drugs; E11.22 Type 2 diabetes mellitus with diabetic chronic kidney disease; K29.51 Unspecified chronic gastritis with bleeding; I24.8 Other forms of acute ischemic heart disease; I25.2 Old myocardial infarction; Z95.5 Presence of coronary angioplasty implant and graft; R00.0 Tachycardia, unspecified; N18.2 Chronic kidney disease, stage 2 (mild); Z79.82 Long term (current) use of aspirin; E78.5 Hyperlipidemia, unspecified; K29.81 Duodenitis with bleeding; R29.6 Repeated falls; V84.5XXA Driver of special agricultural vehicle injured in nontraffic accident, initial encounter; T45.515A Adverse effect of anticoagulants, initial encounter; I25.5 Ischemic cardiomyopathy; Z79.899 Other long term (current) drug therapy; Z79.01 Long term (current) use of anticoagulants; K26.4 Chronic or unspecified duodenal ulcer with hemorrhage; D68.32 Hemorrhagic disorder due to extrinsic circulating anticoagulants; Z87.891 Personal history of nicotine dependence; D62 Acute posthemorrhagic anemia; I50.22 Chronic systolic (congestive) heart failure; D63.1 Anemia in chronic kidney disease; Z86.79 Personal history of other diseases of the circulatory system; Z79.890 Hormone replacement therapy; Z95.818 Presence of other cardiac implants and grafts; S49.092A Other physeal fracture of upper end of humerus, left arm, initial encounter for closed fracture; J44.9 Chronic obstructive pulmonary disease, unspecified; Z87.19 Personal history of other diseases of the digestive system; E03.9 Hypothyroidism, unspecified; I25.10 Atherosclerotic heart disease of native coronary artery without angina pectoris; I12.9 Hypertensive chronic kidney disease with stage 1 through stage 4 chronic kidney disease, or unspecified chronic kidney disease

== ENCOUNTER 2023-11-28 15:47 | Inpatient (IN) ==
--- NOTE | 2023-11-28 16:26 | Emergency Department Note ---
Impression & Plan Pulmonary embolism, DVT (deep venous thrombosis), Left leg swelling ED Provider Note NAME: MANJINDER LEÓN AGE: 83 SEX: M : 1940 ARRIVES VIA: Ambulance INFORMANT: Patient ED PROVIDER(S): Homero Brito MD CHIEF COMPLAINT: Bilateral lower extremity DVT on outpatient ultrasound, referred. PLAN: Disposition: Admit MEDICAL DECISION MAKING: The patient is a pleasant 83-year-old gentleman with a past medical history of hypertension, hyperlipidemia, history of PUD who presents to the emergency department via EMS referred by his GI office after having outpatient ultrasound for bilateral lower extremity swelling left greater than right which demonstrated bilateral DVTs. Patient denies any chest pain, shortness of breath or abdominal pain. He denies any recent long travel or surgeries. He denies any recent immobilization. He reports he has had GI bleeding in the past but this has resolved. He denies any fevers, chills, cough, congestion. On my evaluation patient is in no acute distress, afebrile with stable vital signs. He exhibits 2+ pitting edema of the left lower extremity without erythema, warmth or tenderness. Distal PMS is intact. EKG is paced without overt acute ischemia. WBC, H/H and platelets within normal limits. Chemistry without metabolic acidosis. Magnesium 1.1 with IV repletion initiated. LFTs unremarkable. Initial high-sensitivity troponin 20.9, nonspecific with delta 27.9, essentially unchanged. BNP is 398, nonspecific in setting of history of CHF. TSH is 6.4 with free T4 within normal limits. UA without convincing evidence of infection, Given extent of bilateral lower extremity DVT on outpatient ultrasound CT of the abdomen pelvis and CTA of the chest were performed to exclude additional clot burden. CT abdomen pelvis did not demonstrate additional DVT within the pelvis. However CT of the chest demonstrates nonocclusive right hilar pulmonary embolus with pulmonary emboli extending into the right lobar and segmental branches. There is no left-sided pulmonary emboli. Thrombus material in the left ventricle is described consistent with patient's history of left ventricular mural thrombus for which the patient was taken off of anticoagulation in 2021 per records due to his GI bleeding at the time. Given patient's history of GI bleeding treatment was initiated with IV heparin low-dose protocol for bolus and drip. [facility]. Further management per admitting team. Triage Nursing notes reviewed and agree them. Prior/external medical records reviewed Vital Signs: reviewed Differential diagnosis: DVT, musculoskeletal, infection, joint effusion, trauma, lymphedema, idiopathic, CHF, as well as other pathologies. ER treatment provided: See below. Diagnostics interpreted by me: ECG: Atrial paced rhythm, 61 bpm, no overt acute ischemia. Cardiac Monitoring: An order for continuous cardiac monitoring was placed and demonstrated Atrial paced rhythm, 61 bpm,. Laboratory studies: See below Imaging studies: See below Consultation(s): Case was [facility] for [facility]. HPI: The patient is a pleasant 83-year-old gentleman with a past medical history of hypertension, hyperlipidemia, history of PUD who presents to the emergency department via EMS referred by his GI office after having outpatient ultrasound for bilateral lower extremity swelling left greater than right which demonstrated bilateral DVTs. Patient denies any chest pain, shortness of breath or abdominal pain. He denies any recent long travel or surgeries. He denies any recent immobilization. He reports he has had GI bleeding in the past but this has resolved. He denies any fevers, chills, cough, congestion. ROS: See above HPI for pertinent positives & negatives. A total of 10 systems reviewed and were otherwise negative. VITALS:See Below PHYSICAL EXAMINATION: GENERAL: Awake, alert, in no distress HENT: Normocephalic, atraumatic. Oropharynx unremarkable. EYES: Normal conjunctiva. Sclera non-icteric. NECK: Supple. No nuchal rigidity. FROM. No JVD. RESPIRATORY: Clear to auscultation. CARDIAC: Regular rate, normal rhythm. Extremities warm and well perfused. Pulses equal. ABDOMEN: Soft, non-distended. No tenderness to palpation. No rebound or guarding. No masses. MUSCULOSKELETAL: Chest examination reveals no tenderness. The back is symmetrical on inspection without obvious abnormality. There is no CVA tenderness to palpation. No joint edema. LOWER EXTREMITIES: 2+ pitting edema of the left lower extremity without erythema, warmth or tenderness. Distal PMS is intact. NEURO: Normal sensorium. No sensory or motor deficits noted. SKIN: No rash or jaundice noted. ED COURSE: Critical Care: I have personally spent greater than 35 minutes of critical care time in the direct management of this patient. This includes bedside care, interpretation of diagnostic studies, and testing, discussion with consultants, patient, and family members, and other required patient management activities. This 35 minutes is in excess of all separately billable procedures. Homero Brito MD Past Med/Surg History Problem List (Updated 11/29/23 @ 04:44 by Homero Brito MD) Left leg swelling (Acute) DVT (deep venous thrombosis) (Acute) Pulmonary embolism (Acute) Duodenal ulcer Encounter for pre-operative examination Epigastric abdominal pain Acute GI bleeding (Acute) Elevated troponin I level (Acute) ABLA (acute blood loss anemia) (Acute) Elevated INR (Acute) Supratherapeutic INR Sinus tachycardia LV (left ventricular) mural thrombus Closed fracture of left proximal humerus Sinus bradycardia Ischemic cardiomyopathy Pt admitted for elective ICD due to ICM. Pt underwent procedure without any complications; monitored overnight and discharged home. Medical History Diabetes mellitus, type 2 History of blood transfusion last 06/23/[address] 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 Pt underwent procedure without any complications; monitored overnight and discharged home. Osteoarthritis Poor historian Sinus bradycardia Surgical History History of adenoidectomy History of carpal tunnel release of both wrists History of cataract surgery BOTH EYES History of colonoscopy 5 YEARS AGO History of esophagogastroduodenoscopy (EGD) last 06/24/[address] [facility] History of implantable cardioverter-defibrillator (ICD) placement (~03/23/20) meditronic History of left shoulder replacement History of tonsillectomy History of tooth extraction Family History Other No family history of adverse response to anesthesia Social History Smoking Status: Former smoker Second Hand Exposure: No; Do You Dip or Chew Tobacco: No; Hx Alcohol Use: Yes Alcohol type: beer and wine Hx Substance Use: No Preferred Language: Macedonian Communication Ability: Effective Sales Intern Required: No Beliefs That Will Affect Care: None Current Living Situation: Alone Current Living Situation Comment: home with nephews and brother nearby Feels Safe at Home: Yes Safety Concerns: Feels Safe At This Time Assistive Devices: Denture - Upper, Denture - Lower and Hearing Aid - Bilateral Allergies Allergies Allergy/AdvReac Type Severity Reaction Status Date / Time No Known Allergies Allergy Verified 11/28/23 20:24 Home Meds Home Medications Medication Instructions Recorded Confirmed aspirin 81 mg tablet,delayed 81 mg PO QAM 01/14/20 11/28/23 release (Amanda Low Dose Aspirin) cyanocobalamin (vitamin B-12) 1,000 mcg PO QAM 01/14/20 11/28/23 1,000 mcg capsule isosorbide mononitrate 30 mg 30 mg PO QAM 01/14/20 11/28/23 tablet,extended release 24 hr metformin 1,000 mg tablet 1,000 mg PO BID 01/14/20 11/28/23 nitroglycerin 0.4 mg sublingual 0.4 mg sublingual UD PRN Chest Pain 01/14/20 11/28/23 tablet (Nitrostat) atorvastatin 40 mg tablet 40 mg PO QAM 06/22/21 11/28/23 furosemide 40 mg tablet 40 mg PO DAILY PRN EDEMA/FLUID 09/20/21 11/28/23 RETENTION albuterol sulfate 90 mcg/actuation 2 puff inhalation Q4H PRN 11/28/23 11/28/23 aerosol inhaler COUGH/SHORT OF BREATH/WHEEZING clobetasol 0.05 % topical ointment 1 applic topical BID PRN Skin 11/28/23 11/28/23 Irritation ferrous sulfate 27 mg iron tablet 27 mg PO DAILY 11/28/23 11/28/23 levothyroxine 112 mcg tablet 112 mcg PO DAILYBB 11/28/23 11/28/23 metoprolol succinate 100 mg 100 mg PO QAM 11/28/23 11/28/23 tablet,extended release 24 hr pantoprazole 40 mg tablet,delayed 40 mg PO BID 11/28/23 11/28/23 release Results & Data (ED) Vital Signs Vital Signs - 24 hr 11/28/23 15:53 11/28/23 16:45 11/28/23 17:01 Temperature 36.5 C Temperature Source Oral Pulse Rate 62 60 60 Pulse Rate from SpO2 Sensor Respiratory Rate 17 16 Respiratory Effort / Characteristics Non-Labored Spontaneous Respiratory Depth Normal Respiratory Pattern Regular Blood Pressure 117/68 102/62 Blood Pressure Mean 84 74 Pulse Oximetry 96 93 Oxygen Delivery Method Room Air Room Air Sepsis Recent Fever Within 48 Hours No Sepsis New/Unexplained Change in Mental Status N/A Sepsis Action Taken by Nursing No Action Required 11/28/23 18:00 11/28/23 18:46 11/28/23 19:01 Temperature Temperature Source Pulse Rate 60 Pulse Rate from SpO2 Sensor Respiratory Rate 14 Respiratory Effort / Characteristics Respiratory Depth Respiratory Pattern Blood Pressure 90/56 L 90/56 L Blood Pressure Mean 71 58 62 Pulse Oximetry 94 Oxygen Delivery Method Room Air Sepsis Recent Fever Within 48 Hours Sepsis New/Unexplained Change in Mental Status Sepsis Action Taken by Nursing 11/28/23 19:01 11/28/23 19:15 11/28/23 19:17 Temperature Temperature Source Pulse Rate 62 Pulse Rate from SpO2 Sensor 62 Respiratory Rate 12 Respiratory Effort / Characteristics Respiratory Depth Respiratory Pattern Blood Pressure 111/45 L Blood Pressure Mean 62 72 Pulse Oximetry 95 Oxygen Delivery Method Sepsis Recent Fever Within 48 Hours Sepsis New/Unexplained Change in Mental Status Sepsis Action Taken by Nursing 11/28/23 19:17 11/28/23 19:48 11/28/23 20:00 Temperature Temperature Source Pulse Rate 108 H 65 Pulse Rate from SpO2 Sensor 91 H Respiratory Rate 14 Respiratory Effort / Characteristics Respiratory Depth Respiratory Pattern Blood Pressure 111/45 L Blood Pressure Mean 72 Pulse Oximetry 94 Oxygen Delivery Method Sepsis Recent Fever Within 48 Hours Sepsis New/Unexplained Change in Mental Status Sepsis Action Taken by Nursing 11/28/23 20:00 11/28/23 20:09 11/28/23 20:33 Temperature Temperature Source Pulse Rate 62 64 Pulse Rate from SpO2 Sensor 59 L 61 Respiratory Rate 14 14 Respiratory Effort / Characteristics Respiratory Depth Respiratory Pattern Blood Pressure 91/52 L Blood Pressure Mean 66 Pulse Oximetry 94 95 Oxygen Delivery Method Sepsis Recent Fever Within 48 Hours Sepsis New/Unexplained Change in Mental Status Sepsis Action Taken by Nursing Laboratory Data 11/28/23 16:10 11/28/23 16:10 Lab Results 11/28/23 11/28/23 11/28/23 Range/Units 16:10 19:53 20:15 WBC 6.56 (4.8-10.8) K/ul RBC 4.57 L (4.70-6.10) M/uL Hgb 14.4 (14.0-18.0) g/dl Hct 43.6 (42.0-52.0) % MCV 95.4 (80.0-100.0) fL MCH 31.5 (25.0-34.0) pg MCHC 33.0 (32.0-36.0) g/dL RDW Std Deviation 51.2 H (36.4-46.3) fL RDW Coeff of Nicole 14.7 H (11.5-14.5) % Plt Count 237 (130-400) K/uL MPV 9.9 (9.4-12.4) fL Immature Gran % (Auto) 1.4 % Neut % (Auto) 60.8 % Lymph % (Auto) 27.0 % [place] % (Auto) 9.6 % Eos % (Auto) 0.6 % Baso % (Auto) 0.6 % Neut # (Auto) 3.99 (1.40-6.50) K/uL Lymph # (Auto) 1.77 (1.20-3.40) K/uL [place] # (Auto) 0.63 H (0.11-0.59) K/uL Eos # (Auto) 0.04 (0.00-0.50) K/uL Baso # (Auto) 0.04 (0.00-0.20) K/uL Immature Gran # (Auto) 0.09 (0.01-0.20) K/uL PT 12.4 H (9.0-12.0) Seconds INR 1.2 H (0.9-1.1) APTT 28 (21-31) Seconds PTT Ratio 1.0 Sodium 136 (136-145) mmol/L Potassium 4.7 (3.5-5.1) mmol/L Chloride 99 (98-107) mmol/L Carbon Dioxide 33 H (21-32) mmol/L Anion Gap 4 (3-11) BUN 22 (6-23) mg/dl Creatinine 1.22 (0.6-1.4) mg/dl Est Cr Clr Drug Dosing 45.7 ml/min Est GFR ( Amer) 63.6 ml/min Est GFR (Non-Af Amer) 54.9 ml/min BUN/Creatinine Ratio 18.0 (10-20) Glucose 77 (70-99(Fasting)) mg/dl Calcium 7.3 L (8.6-10.3) mg/dl Magnesium 1.1 L (1.7-2.4) mg/dl Total Bilirubin 0.4 (0.2-1.0) mg/dl AST 27 (13-39) U/L ALT 24 (7-52) U/L Alkaline Phosphatase 109 H (34-104) U/L Troponin I High Sens 28.9 H 27.9 H (0-20) pg/ml B-Natriuretic Peptide 398 H (0-100) pg/ml Total Protein 5.4 L (6.0-8.3) gm/dl Albumin 2.1 L (3.4-5.0) gm/dl Globulin 3.3 (2.5-4.0) gm/dl Albumin/Globulin Ratio 0.6 L (0.9-2) TSH 6.405 H (0.300-4.500) uIu/ml Free T4 1.23 (0.61-1.60) ng/dl Urine Color Yellow Urine Appearance Clear (Clear) Urine pH 6.5 (4.5-7.5) Ur Specific [place] 1.021 (1.000-1.030) Urine Protein Negative (Negative) Urine Glucose (UA) Negative (Negative) Urine Ketones Trace H (Negative) Urine Blood Negative (Negative) Urine Nitrite Negative (Negative) Urine Bilirubin Negative (Negative) Urine Urobilinogen Negative (Negative) Ur Leukocyte Esterase Negative (Negative) Administered Medications Heparin Sodium/Dextrose (Heparin Sodium/Dextrose) 25,000 units in 500 mls @ 17 mls/hr IV .Q24H [facility]; Protocol Stop: 12/28/23 21:44 Last Titration: 11/28/23 23:55 Dose: 850 units/hr, 17 mls/hr Documented By: SANDOVAL Co-signed By: JOANNE Admin: 11/28/23 22:45 Dose: 850 units/hr, 17 mls/hr Documented By: FLORA Co-signed By: JUAN Insulin Aspart (Insulin Aspart Per Unit Charge) 0 units SC ACHS JOVANY Stop: 12/28/23 23:58 Last Admin: 11/29/23 00:15 Dose: Not Given Documented By: SANDOVAL Discontinued Medications Heparin Sodium (Porcine) (Heparin Sod (Porcine) 1000 Unit/Ml) 1 units IV NOW ONE Stop: 11/28/23 21:43 Last Admin: 11/28/23 22:45 Dose: 4,000 units Documented By: FLORA Co-signed By: JUAN Heparin Sodium/Dextrose (Heparin Iv Adult Wt-Based Low-Dose W/ Initial Bolus Protocol) 1 each IV NOW STA; Protocol Stop: 11/28/23 21:28 Last Admin: 11/29/23 00:44 Dose: Not Given Documented By: SANDOVAL Magnesium Sulfate/Dextrose (Magnesium Sulfate / D5w) 1 gm in 100 mls @ 100 mls/hr IV NOW STA Stop: 11/28/23 22:27 Last Infusion: 11/28/23 23:04 Dose: Infused Documented By: Admin: 11/28/23 21:59 Dose: 100 mls/hr Documented By: FLORA Magnesium Sulfate/Dextrose (Magnesium Sulfate / D5w) 1 gm in 100 mls @ 50 mls/hr IV Q2H JOVANY Stop: 11/29/23 03:59 Last Admin: 11/29/23 03:11 Dose: 50 mls/hr Documented By: Infusion: 11/29/23 03:11 Dose: Infused Documented By: Admin: 11/29/23 01:10 Dose: 50 mls/hr Documented By: Infusion: 11/29/23 01:04 Dose: Infused Documented By: Admin: 11/28/23 23:04 Dose: 50 mls/hr Documented By: FLORA Albumin Human (Albumin 25%) 25 gm in 100 mls @ 50 mls/hr IV ONE ONE Stop: 11/28/23 23:55 Last Infusion: 11/29/23 00:16 Dose: Infused Documented By: Admin: 11/28/23 22:16 Dose: 50 mls/hr Documented By: FLORA Ioversol (Optiray 320 125ml) 115 ml IV ONCE ONE Stop: 11/28/23 19:13 Last Admin: 11/28/23 19:12 Dose: 115 ml Documented By: JOO Imaging Data Radiologist's Impression: Abdomen/Pelvis CT 11/28/23 17:26 Exam(s): CT ABDOMEN + PELVIS With Contrast IV Amt: 115 ml opti 320 EXAM: CT Abdomen and Pelvis With Intravenous Contrast CLINICAL HISTORY: Reason for exam: BLE DVT, r/o pelvic dvt. TECHNIQUE: Axial computed tomography images of the abdomen and pelvis with intravenous contrast. CTDI is 65.53 mGy and DLP is 2132.52 mGy-cm. Automated exposure control was utilized for the study. A dose lowering technique was utilized adhering to the principles of ALARA. CONTRAST: Patient received 115 ml opti 320 of IV contrast COMPARISON: 06/22/21. FINDINGS: Lung bases: Unremarkable. No mass. No consolidation. ABDOMEN: Liver: Unremarkable. No mass. Gallbladder and bile ducts: Gallbladder is distended without direct CT evidence for acute cholecystitis. Common bile duct measures 9.5 mm in width, presumably physiologic for age. Pancreas: Unremarkable. No mass. No ductal dilation. Spleen: Unremarkable. No splenomegaly. Adrenals: Unremarkable. No mass. Kidneys and ureters: Unremarkable. Numerous small simple cysts in the kidneys bilaterally demonstrated largest measures 3.5 cm on the left. No further follow-up is recommended. Stomach and bowel: Unremarkable. No obstruction. No mucosal thickening. PELVIS: Appendix: No findings to suggest acute appendicitis. Bladder: Unremarkable. No mass. Reproductive: Unremarkable as visualized. ABDOMEN and PELVIS: Intraperitoneal space: Unremarkable. No free air. No significant fluid collection. Bones/joints: No acute fracture. No dislocation. Lumbar spine dextroscoliosis with spondylotic change. Soft tissues: Unremarkable. Vasculature: Left common femoral and femoral deep venous thrombosis partially visualized. No abdominal aortic aneurysm. No definite iliocaval thrombosis. Lymph nodes: Unremarkable. No enlarged lymph nodes. IMPRESSION: Left common femoral and femoral deep venous thrombosis partially visualized, as described in the clinical history. No acute abdominal or pelvic pathology is visualized.. Electronically signed by: Don Kessler MD 11/28/23 21:20 PM Chest CTA 11/28/23 17:26 CR Exam(s): CTA CHEST IV Amt: 115 ml opti 320 EXAM: CT Angiography Chest With Intravenous Contrast CLINICAL HISTORY: Reason for exam: BLE DVT, sob r/o PE. TECHNIQUE: Axial computed tomographic angiography images of the chest with intravenous contrast. CTDI is 65.53 mGy and DLP is 2132.52 mGy-cm. Automated exposure control was utilized for the study. A dose lowering technique was utilized adhering to the principles of ALARA. MIP reconstructed images were created and reviewed. COMPARISON: No relevant prior studies available. FINDINGS: Pulmonary arteries: Nonocclusive right hilar pulmonary embolus with emboli extending into the right lobar and segmental branches demonstrated. No left-sided pulmonary emboli visualized. No pulmonary arterial dilatation. No abnormal right ventricular dilatation. 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 Aorta: No acute findings. No thoracic aortic aneurysm. 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 Lungs: Mild infectious or inflammatory bronchial wall thickening. Mild centrilobular emphysema. Pleural space: Unremarkable. No significant effusion. No pneumothorax. Heart: Severe coronary artery calcifications. No pericardial effusion. Mediastinum: Partially calcified mediastinal lymph nodes present. No pathologic intrathoracic lymph node enlargement. Bones/joints: No acute fracture. No dislocation. Orthopedic hardware proximal left humerus noted. Soft tissues: Unremarkable. Lymph nodes: Unremarkable. No enlarged lymph nodes. Tubes, lines and devices: Left-sided pacemaker in place. Other findings: Scattered subcentimeter calcified granuloma. IMPRESSION: 1. Nonocclusive right hilar pulmonary embolus with emboli extending into the right lobar and segmental branches demonstrated. No left-sided pulmonary emboli visualized. 2. No pulmonary arterial dilatation. No abnormal right ventricular dilatation. 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 3. 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 4. Mild infectious or inflammatory bronchial wall thickening. Communications: Verify Receipt Electronically signed by: Don Kessler MD 11/28/23 21:11 PM Discharge Plan Visit Data Chief Complaint: Edema To Extremity ED Provider: Homero Brito Discharge Problem: Pulmonary embolism, DVT (deep venous thrombosis), Left leg swelling Patient Disposition: Admitted As Inpatient Discharge Instructions Interventions: ED Discharge Assessment Last Done: 11/28/23 23:09 Discharge Problem: Pulmonary embolism Qualifiers: Pulmonary embolism type: unspecified Chronicity: acute Acute cor pulmonale presence: without acute cor pulmonale Qualified Code(s): I26.99 - Other pulmonary embolism without acute cor pulmonale DVT (deep venous thrombosis) Qualifiers: DVT location: lower extremity Affected thrombotic vein of extremity: u nspecified vein of extremity Chronicity: acute Laterality: bilateral Qualified Code(s): I82.403 - Acute embolism and thrombosis of unspecified deep veins of lower extremity, bilateral
[2023-11-28 16:48] LABS: Basophils # (auto) 0.04 K/uL (0.00-0.20); Basophils % (auto) 0.6 %; Eosinophils # (auto) 0.04 K/uL (0.00-0.50); Eosinophils % (auto) 0.6 %; Hematocrit (blood only) 43.6 % (42.0-52.0); Hemoglobin 14.4 g/dl (14.0-18.0); Immature Granulocytes # (auto) 0.09 K/uL (0.01-0.20); Immature Granulocytes % (auto) 1.4 %; Lymphocytes # (auto) 1.77 K/uL (1.20-3.40); Mean Corpuscular Hemoglobin 31.5 pg (25.0-34.0); Mean Corpuscular Volume 95.4 fL (80.0-100.0); Mean Platelet Volume 9.9 fL (9.4-12.4); Monocytes # (auto) 0.63 K/uL (0.11-0.59); Monocytes % (auto) 9.6 %; Neutrophils # (auto) 3.99 K/uL (1.40-6.50); Neutrophils % (auto) 60.8 %; Platelet Count 237 K/uL (130-400); RDW Coefficient of Variation 14.7 % (11.5-14.5); RDW Standard Deviation 51.2 fL (36.4-46.3); Red Blood Count 4.57 M/uL (4.70-6.10); White Blood Count 6.56 K/ul (4.8-10.8)
[2023-11-28 17:06] LABS: Albumin Globulin Ratio 0.6 (0.9-2); Albumin Level 2.1 gm/dl (3.4-5.0); Bilirubin,Total 0.4 mg/dl (0.2-1.0); Calcium 7.3 mg/dl (8.6-10.3); Creatinine Clr Calc Pharmacy 45.7 ml/min; Est GFR (African American) 63.6 ml/min; Est GFR (Non-African American) 54.9 ml/min; Globulin 3.3 gm/dl (2.5-4.0); Magnesium 1.1 mg/dl (1.7-2.4); Potassium 4.7 mmol/L (3.5-5.1); Total Protein 5.4 gm/dl (6.0-8.3)
[2023-11-28 17:12] LABS: Troponin I High Sensitivity 28.9 pg/ml (0-20)
[2023-11-28 17:15] LABS: INR 1.2 (0.9-1.1); Partial Thromboplastin Time 28 Seconds (21-31); Prothrombin Time 12.4 Seconds (9.0-12.0)
[2023-11-28 17:21] LABS: Thyroid Stimulating Hormone 6.405 uIu/ml (0.300-4.500)
[2023-11-28 17:57] LABS: T4 Free Thyroxine 1.23 ng/dl (0.61-1.60)
[2023-11-28] MEDS: OPTIRAY 320 125ml IV ONE (19:12)
[2023-11-28 20:04] LABS: Appearance Urine Clear (Clear); Bilirubin Urine Negative (Negative); Blood Urine Negative (Negative); Color Urine Yellow; Glucose Urine UA Negative (Negative); Ketones Urine Trace (Negative); Leukocyte Esterase Urine Negative (Negative); Nitrite Urine Negative (Negative); Protein Urine Negative (Negative); Specific Gravity Urine 1.021 (1.000-1.030); Urobilinogen Urine Negative (Negative); pH Urine 6.5 (4.5-7.5)
--- NOTE | 2023-11-28 21:12 | CT Scan Report ---
Exam(s): CTA CHEST IV Amt: 115 ml opti 320 EXAM: CT Angiography Chest With Intravenous Contrast CLINICAL HISTORY: Reason for exam: BLE DVT, sob r/o PE. TECHNIQUE: Axial computed tomographic angiography images of the chest with intravenous contrast. CTDI is 65.53 mGy and DLP is 2132.52 mGy-cm. Automated exposure control was utilized for the study. A dose lowering technique was utilized adhering to the principles of ALARA. MIP reconstructed images were created and reviewed. COMPARISON: No relevant prior studies available. FINDINGS: Pulmonary arteries: Nonocclusive right hilar pulmonary embolus with emboli extending into the right lobar and segmental branches demonstrated. No left-sided pulmonary emboli visualized. No pulmonary arterial dilatation. No abnormal right ventricular dilatation. 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 Aorta: No acute findings. No thoracic aortic aneurysm. 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 Lungs: Mild infectious or inflammatory bronchial wall thickening. Mild centrilobular emphysema. Pleural space: Unremarkable. No significant effusion. No pneumothorax. Heart: Severe coronary artery calcifications. No pericardial effusion. Mediastinum: Partially calcified mediastinal lymph nodes present. No pathologic intrathoracic lymph node enlargement. Bones/joints: No acute fracture. No dislocation. Orthopedic hardware proximal left humerus noted. Soft tissues: Unremarkable. Lymph nodes: Unremarkable. No enlarged lymph nodes. Tubes, lines and devices: Left-sided pacemaker in place. Other findings: Scattered subcentimeter calcified granuloma. IMPRESSION: 1. Nonocclusive right hilar pulmonary embolus with emboli extending into the right lobar and segmental branches demonstrated. No left-sided pulmonary emboli visualized. 2. No pulmonary arterial dilatation. No abnormal right ventricular dilatation. 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 3. 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 4. Mild infectious or inflammatory bronchial wall thickening. Communications: Verify Receipt Electronically signed by: Don Kessler MD 11/28/23 21:11 PM
--- NOTE | 2023-11-28 21:20 | CT Scan Report ---
Exam(s): CT ABDOMEN + PELVIS With Contrast IV Amt: 115 ml opti 320 EXAM: CT Abdomen and Pelvis With Intravenous Contrast CLINICAL HISTORY: Reason for exam: BLE DVT, r/o pelvic dvt. TECHNIQUE: Axial computed tomography images of the abdomen and pelvis with intravenous contrast. CTDI is 65.53 mGy and DLP is 2132.52 mGy-cm. Automated exposure control was utilized for the study. A dose lowering technique was utilized adhering to the principles of ALARA. CONTRAST: Patient received 115 ml opti 320 of IV contrast COMPARISON: 06/22/21. FINDINGS: Lung bases: Unremarkable. No mass. No consolidation. ABDOMEN: Liver: Unremarkable. No mass. Gallbladder and bile ducts: Gallbladder is distended without direct CT evidence for acute cholecystitis. Common bile duct measures 9.5 mm in width, presumably physiologic for age. Pancreas: Unremarkable. No mass. No ductal dilation. Spleen: Unremarkable. No splenomegaly. Adrenals: Unremarkable. No mass. Kidneys and ureters: Unremarkable. Numerous small simple cysts in the kidneys bilaterally demonstrated largest measures 3.5 cm on the left. No further follow-up is recommended. Stomach and bowel: Unremarkable. No obstruction. No mucosal thickening. PELVIS: Appendix: No findings to suggest acute appendicitis. Bladder: Unremarkable. No mass. Reproductive: Unremarkable as visualized. ABDOMEN and PELVIS: Intraperitoneal space: Unremarkable. No free air. No significant fluid collection. Bones/joints: No acute fracture. No dislocation. Lumbar spine dextroscoliosis with spondylotic change. Soft tissues: Unremarkable. Vasculature: Left common femoral and femoral deep venous thrombosis partially visualized. No abdominal aortic aneurysm. No definite iliocaval thrombosis. Lymph nodes: Unremarkable. No enlarged lymph nodes. IMPRESSION: Left common femoral and femoral deep venous thrombosis partially visualized, as described in the clinical history. No acute abdominal or pelvic pathology is visualized.. Electronically signed by: Don Kessler MD 11/28/23 21:20 PM
--- NOTE | 2023-11-28 21:56 | History & Physical Report ---
Date of Service November 28, 2023 Assessment & Plan (1) Pulmonary embolism: Plan: Pulmonary thromboembolism Initial occurrence unprovoked event Possible genetic predisposition given family history of blood clots as per patient account. Concern for occult malignancy given significant weight loss since last year as per patient. Troponin elevation secondary to above chronic systolic heart failure secondary to ischemic cardiomyopathy status post ICD, patient euvolemic to dry history recurrent LV thrombus History PUD, no recent bleeding hyperlipidemia on statin Rx COPD, stable DM2 on oral medications, well-controlled as of recent hemoglobin A1c of 5.7 last July 2023 hypothyroidism, TSH slightly elevated past tobacco abuse Admit to PCU given hypotension IV heparin Patient expressed interest in NOAC for maintenance Rx on discharge citing bleeding complications from prior Coumadin Rx for heart issues. Patient may likely need lifelong anticoagulation with concomitant cardiac indications (PAFl, recurrent cardiac thrombus) IVF, decrease home beta-willy dose Rx for now given hypotension, hold home diuretic for now until BP improved Basal insulin, ISS BG goal 1 10-1 40, carb count coverage DVT prophylaxis. IV heparin Full code Text document was generated using [employer] voice recognition software. It may contain grammatical or spelling errors. Kindly contact undersigned for clarification of any documentation item in question. History of Present Illness Chief Complaint: Abnormal outpatient venous Dopplers Primary Care Provider: Kaitlin Price MD History obtained from patient and records. Medical history significant for chronic systolic heart failure secondary to ischemic cardiomyopathy (30 to 34%, TTE 2023) status post ICD, CAD status post stent, paroxysmal atrial flutter as per records, past history LV thrombus, hypertension, hyperlipidemia, COPD, duodenitis, BPH, DM2 on oral medications, hypothyroidism, past tobacco abuse. Last confinement 2021 for left humeral fracture secondary to fall and active UGIB secondary to chronic duodenitis with ulceration and gastritis in the setting of Coumadin coagulopathy. EGD showed gastritis and duodenitis. Biopsy negative for malignancy. Patient discharged on PPI course. Coumadin held on discharge since. 1 month history of watery diarrhea symptoms without unusual abdominal pain. Weight loss of about 20 pounds in 6 months Patient denies chest pain, SOB. Outpatient stool workup last month negative. Few days ago patient noted left leg swelling more than usual without recent trauma. No chest pain or unusual SOB. Patient seen at [facility] office following PCP referral today. Outpatient colonoscopy contemplated. Patient sent for outpatient LE venous Dopplers which later showed acute deep venous thrombosis in the bilateral lower extremity Patient directed to ER by outpatient provider. IV heparin initiated at the ER. 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 Allergies Allergy/AdvReac Type Severity Reaction Status Date / Time No Known Allergies Allergy Verified 11/28/23 20:24 Home Medications Medication Instructions Recorded Confirmed Type aspirin 81 mg tablet,delayed 81 mg PO QAM 01/14/20 11/28/23 History release (Amanda Low Dose Aspirin) cyanocobalamin (vitamin B-12) 1,000 mcg PO QAM 01/14/20 11/28/23 History 1,000 mcg capsule isosorbide mononitrate 30 mg 30 mg PO QAM 01/14/20 11/28/23 History tablet,extended release 24 hr metformin 1,000 mg tablet 1,000 mg PO BID 01/14/20 11/28/23 History nitroglycerin 0.4 mg sublingual 0.4 mg sublingual UD PRN Chest Pain 01/14/20 11/28/23 History tablet (Nitrostat) atorvastatin 40 mg tablet 40 mg PO QAM 06/22/21 11/28/23 History furosemide 40 mg tablet 40 mg PO DAILY PRN EDEMA/FLUID 09/20/21 11/28/23 History RETENTION albuterol sulfate 90 mcg/actuation 2 puff inhalation Q4H PRN 11/28/23 11/28/23 History aerosol inhaler COUGH/SHORT OF BREATH/WHEEZING clobetasol 0.05 % topical ointment 1 applic topical BID PRN Skin 11/28/23 11/28/23 History Irritation ferrous sulfate 27 mg iron tablet 27 mg PO DAILY 11/28/23 11/28/23 History levothyroxine 112 mcg tablet 112 mcg PO DAILYBB 11/28/23 11/28/23 History metoprolol succinate 100 mg 100 mg PO QAM 11/28/23 11/28/23 History tablet,extended release 24 hr pantoprazole 40 mg tablet,delayed 40 mg PO BID 11/28/23 11/28/23 History release Past Med/Surg History Problem List (Updated 11/29/23 @ 04:44 by Homero Brito MD) Left leg swelling (Acute) DVT (deep venous thrombosis) (Acute) Pulmonary embolism (Acute) Duodenal ulcer Encounter for pre-operative examination Epigastric abdominal pain Acute GI bleeding (Acute) Elevated troponin I level (Acute) ABLA (acute blood loss anemia) (Acute) Elevated INR (Acute) Supratherapeutic INR Sinus tachycardia LV (left ventricular) mural thrombus Closed fracture of left proximal humerus Sinus bradycardia Ischemic cardiomyopathy Pt admitted for elective ICD due to ICM. Pt underwent procedure without any complications; monitored overnight and discharged home. Medical History Diabetes mellitus, type 2 History of blood transfusion last 06/23/21 @ [facility] History of GI bleed History of left heart catheterization 1991 [place], NO STENTS [address] [facility], UNSURE OF STENTS Hyperlipidemia Hypertension ICD (implantable cardioverter-defibrillator) in place meditronic Ischemic cardiomyopathy Pt admitted for elective ICD due to ICM. Pt underwent procedure without any complications; monitored overnight and discharged home. Osteoarthritis Poor historian Sinus bradycardia Surgical History History of adenoidectomy History of carpal tunnel release of both wrists History of cataract surgery BOTH EYES History of colonoscopy 5 YEARS AGO History of esophagogastroduodenoscopy (EGD) last 06/24/21 @ [facility] History of implantable cardioverter-defibrillator (ICD) placement (~03/23/20) meditronic History of left shoulder replacement History of tonsillectomy History of tooth extraction Family History Other No family history of adverse response to anesthesia Social History Smoking Status: Former smoker Second Hand Exposure: No; Do You Dip or Chew Tobacco: No; Hx Alcohol Use: Yes Alcohol type: beer and wine Hx Substance Use: No Preferred Language: Hungarian Communication Ability: Effective Rn Telephone Triage Required: No Beliefs That Will Affect Care: None Current Living Situation: Alone Current Living Situation Comment: home with nephews and brother nearby Feels Safe at Home: Yes Safety Concerns: Feels Safe At This Time Assistive Devices: Denture - Upper, Denture - Lower and Hearing Aid - Bilateral Review of Systems Review of Systems: As per HPI, all other systems reviewed and negative Physical Exam Physical Exam: GENERAL: Comfortable, pleasant, slightly hard of hearing, no respiratory distress SKIN: Normal color, warm HEENT: [place] palpebral conjunctivae, no ptosis, dry buccal mucosa NECK : Supple, no tenderness CHEST : Decreased breath sounds, no tenderness HEART : Tachycardic, systolic murmur ABDOMEN: Some distention, no overt tenderness EXTREMITIES : LLE swelling without tenderness, no other conspicuous deformities noted NEUROLOGIC : Coherent, slightly hard of hearing, no other gross focality Results & Data Results & Data Vital Signs (Past 12 Hours) Vital Signs Temp Pulse Resp BP Pulse Ox O2 Del Method 11/28/23 20:33 64 14 95 11/28/23 20:09 62 14 94 11/28/23 20:00 91/52 L 11/28/23 20:00 65 11/28/23 19:48 108 H 14 94 11/28/23 19:17 111/45 L 11/28/23 19:17 111/45 L 11/28/23 19:15 62 12 95 11/28/23 18:46 90/56 L 11/28/23 18:00 60 14 90/56 L 94 Room Air 11/28/23 17:01 60 16 102/62 93 Room Air 11/28/23 16:45 60 11/28/23 15:53 36.5 C 62 17 117/68 96 Room Air Laboratory Results Laboratory Results WBC 6.56 K/ul (4.8-10.8) 11/28/23 16:10 RBC 4.57 M/uL (4.70-6.10) L 11/28/23 16:10 Hgb 14.4 g/dl (14.0-18.0) 11/28/23 16:10 Hct 43.6 % (42.0-52.0) 11/28/23 16:10 MCV 95.4 fL (80.0-100.0) 11/28/23 16:10 MCH 31.5 pg (25.0-34.0) 11/28/23 16:10 MCHC 33.0 g/dL (32.0-36.0) 11/28/23 16:10 RDW Std Deviation 51.2 fL (36.4-46.3) H 11/28/23 16:10 RDW Coeff of Nicole 14.7 % (11.5-14.5) H 11/28/23 16:10 Plt Count 237 K/uL (130-400) 11/28/23 16:10 MPV 9.9 fL (9.4-12.4) 11/28/23 16:10 Immature Gran % (Auto) 1.4 % 11/28/23 16:10 Neut % (Auto) 60.8 % 11/28/23 16:10 Lymph % (Auto) 27.0 % 11/28/23 16:10 [place] % (Auto) 9.6 % 11/28/23 16:10 Eos % (Auto) 0.6 % 11/28/23 16:10 Baso % (Auto) 0.6 % 11/28/23 16:10 Neut # (Auto) 3.99 K/uL (1.40-6.50) 11/28/23 16:10 Lymph # (Auto) 1.77 K/uL (1.20-3.40) 11/28/23 16:10 [place] # (Auto) 0.63 K/uL (0.11-0.59) H 11/28/23 16:10 Eos # (Auto) 0.04 K/uL (0.00-0.50) 11/28/23 16:10 Baso # (Auto) 0.04 K/uL (0.00-0.20) 11/28/23 16:10 Immature Gran # (Auto) 0.09 K/uL (0.01-0.20) 11/28/23 16:10 PT 12.4 Seconds (9.0-12.0) H 11/28/23 16:10 INR 1.2 (0.9-1.1) H 11/28/23 16:10 APTT 28 Seconds (21-31) 11/28/23 16:10 PTT Ratio 1.0 11/28/23 16:10 Sodium 136 mmol/L (136-145) 11/28/23 16:10 Potassium 4.7 mmol/L (3.5-5.1) 11/28/23 16:10 Chloride 99 mmol/L (98-107) 11/28/23 16:10 Carbon Dioxide 33 mmol/L (21-32) H 11/28/23 16:10 Anion Gap 4 (3-11) 11/28/23 16:10 BUN 22 mg/dl (6-23) 11/28/23 16:10 Creatinine 1.22 mg/dl (0.6-1.4) 11/28/23 16:10 Est Cr Clr Drug Dosing 45.7 ml/min 11/28/23 16:10 Est GFR ( Amer) 63.6 ml/min 11/28/23 16:10 Est GFR (Non-Af Amer) 54.9 ml/min 11/28/23 16:10 BUN/Creatinine Ratio 18.0 (10-20) 11/28/23 16:10 Glucose 77 mg/dl (70-99(Fasting)) 11/28/23 16:10 Calcium 7.3 mg/dl (8.6-10.3) L 11/28/23 16:10 Magnesium 1.1 mg/dl (1.7-2.4) L 11/28/23 16:10 Total Bilirubin 0.4 mg/dl (0.2-1.0) 11/28/23 16:10 AST 27 U/L (13-39) 11/28/23 16:10 ALT 24 U/L (7-52) 11/28/23 16:10 Alkaline Phosphatase 109 U/L (34-104) H 11/28/23 16:10 Troponin I High Sens 27.9 pg/ml (0-20) H 11/28/23 20:15 B-Natriuretic Peptide 398 pg/ml (0-100) H 11/28/23 16:10 Total Protein 5.4 gm/dl (6.0-8.3) L 11/28/23 16:10 Albumin 2.1 gm/dl (3.4-5.0) L 11/28/23 16:10 Globulin 3.3 gm/dl (2.5-4.0) 11/28/23 16:10 Albumin/Globulin Ratio 0.6 (0.9-2) L 11/28/23 16:10 TSH 6.405 uIu/ml (0.300-4.500) H 11/28/23 16:10 Free T4 1.23 ng/dl (0.61-1.60) 11/28/23 16:10 Urine Color Yellow 11/28/23 19:53 Urine Appearance Clear (Clear) 11/28/23 19:53 Urine pH 6.5 (4.5-7.5) 11/28/23 19:53 Ur Specific [place] 1.021 (1.000-1.030) 11/28/23 19:53 Urine Protein Negative (Negative) 11/28/23 19:53 Urine Glucose (UA) Negative (Negative) 11/28/23 19:53 Urine Ketones Trace (Negative) H 11/28/23 19:53 Urine Blood Negative (Negative) 11/28/23 19:53 Urine Nitrite Negative (Negative) 11/28/23 19:53 Urine Bilirubin Negative (Negative) 11/28/23 19:53 Urine Urobilinogen Negative (Negative) 11/28/23 19:53 Ur Leukocyte Esterase Negative (Negative) 11/28/23 19:53 Impressions Abdomen/Pelvis CT 11/28/23 17:26 Exam(s): CT ABDOMEN + PELVIS With Contrast IV Amt: 115 ml opti 320 EXAM: CT Abdomen and Pelvis With Intravenous Contrast CLINICAL HISTORY: Reason for exam: BLE DVT, r/o pelvic dvt. TECHNIQUE: Axial computed tomography images of the abdomen and pelvis with intravenous contrast. CTDI is 65.53 mGy and DLP is 2132.52 mGy-cm. Automated exposure control was utilized for the study. A dose lowering technique was utilized adhering to the principles of ALARA. CONTRAST: Patient received 115 ml opti 320 of IV contrast COMPARISON: 06/22/21. FINDINGS: Lung bases: Unremarkable. No mass. No consolidation. ABDOMEN: Liver: Unremarkable. No mass. Gallbladder and bile ducts: Gallbladder is distended without direct CT evidence for acute cholecystitis. Common bile duct measures 9.5 mm in width, presumably physiologic for age. Pancreas: Unremarkable. No mass. No ductal dilation. Spleen: Unremarkable. No splenomegaly. Adrenals: Unremarkable. No mass. Kidneys and ureters: Unremarkable. Numerous small simple cysts in the kidneys bilaterally demonstrated largest measures 3.5 cm on the left. No further follow-up is recommended. Stomach and bowel: Unremarkable. No obstruction. No mucosal thickening. PELVIS: Appendix: No findings to suggest acute appendicitis. Bladder: Unremarkable. No mass. Reproductive: Unremarkable as visualized. ABDOMEN and PELVIS: Intraperitoneal space: Unremarkable. No free air. No significant fluid collection. Bones/joints: No acute fracture. No dislocation. Lumbar spine dextroscoliosis with spondylotic change. Soft tissues: Unremarkable. Vasculature: Left common femoral and femoral deep venous thrombosis partially visualized. No abdominal aortic aneurysm. No definite iliocaval thrombosis. Lymph nodes: Unremarkable. No enlarged lymph nodes. IMPRESSION: Left common femoral and femoral deep venous thrombosis partially visualized, as described in the clinical history. No acute abdominal or pelvic pathology is visualized.. Electronically signed by: Don Kessler MD 11/28/23 21:20 PM Chest CTA 11/28/23 17:26 CR Exam(s): CTA CHEST IV Amt: 115 ml opti 320 EXAM: CT Angiography Chest With Intravenous Contrast CLINICAL HISTORY: Reason for exam: BLE DVT, sob r/o PE. TECHNIQUE: Axial computed tomographic angiography images of the chest with intravenous contrast. CTDI is 65.53 mGy and DLP is 2132.52 mGy-cm. Automated exposure control was utilized for the study. A dose lowering technique was utilized adhering to the principles of ALARA. MIP reconstructed images were created and reviewed. COMPARISON: No relevant prior studies available. FINDINGS: Pulmonary arteries: Nonocclusive right hilar pulmonary embolus with emboli extending into the right lobar and segmental branches demonstrated. No left-sided pulmonary emboli visualized. No pulmonary arterial dilatation. No abnormal right ventricular dilatation. 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 Aorta: No acute findings. No thoracic aortic aneurysm. 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 Lungs: Mild infectious or inflammatory bronchial wall thickening. Mild centrilobular emphysema. Pleural space: Unremarkable. No significant effusion. No pneumothorax. Heart: Severe coronary artery calcifications. No pericardial effusion. Mediastinum: Partially calcified mediastinal lymph nodes present. No pathologic intrathoracic lymph node enlargement. Bones/joints: No acute fracture. No dislocation. Orthopedic hardware proximal left humerus noted. Soft tissues: Unremarkable. Lymph nodes: Unremarkable. No enlarged lymph nodes. Tubes, lines and devices: Left-sided pacemaker in place. Other findings: Scattered subcentimeter calcified granuloma. IMPRESSION: 1. Nonocclusive right hilar pulmonary embolus with emboli extending into the right lobar and segmental branches demonstrated. No left-sided pulmonary emboli visualized. 2. No pulmonary arterial dilatation. No abnormal right ventricular dilatation. 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 3. 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 4. Mild infectious or inflammatory bronchial wall thickening. Communications: Verify Receipt Electronically signed by: Don Kessler MD 11/28/23 21:11 PM Diagnostic Findings EKG as per my interpretation :Rate 60, paced rhythm (1) Pulmonary embolism Acute cor pulmonale presence: without acute cor pulmonale Chronicity: acute Pulmonary embolism type: unspecified Qualified Code(s): I26.99 - Other pulmonary embolism without acute cor pulmonale
[2023-11-28] MEDS: MAGNESIUM SULFATE / D5W 1 GM/100 ML BAG IV STA (21:59)
[2023-11-28] MEDS: ALBUMIN 25% 25 GM/100 ML VIAL IV ONE (22:16)
[2023-11-28] MEDS ORDERED: PROMETHAZINE 6.25 MG/50.25 ML BAG IV PRN (22:43)
[2023-11-28] MEDS: HEPARIN SODIUM/DEXTROSE 25,000 UNITS/500 ML BAG IV SCH (22:45)
[2023-11-28] MEDS: HEPARIN SOD (PORCINE) 1000 UNIT/ML IV ONE (22:45)
[2023-11-28] MEDS: MAGNESIUM SULFATE / D5W 1 GM/100 ML BAG IV SCH (23:04)
[2023-11-28] MEDS ORDERED: ACETAMINOPHEN 325 MG TAB PO PRN ×2 (23:20→23:59)
[2023-11-28] MEDS ORDERED: GLUCAGON FOR INJ 1 MG VIAL SQ PRN (23:59)
[2023-11-28] MEDS ORDERED: NITROGLYCERIN SL 0.4 MG/TAB TAB SL PRN (23:59)
[2023-11-28] MEDS ORDERED: GLUCOSE 10 TAB/TUBE PO PRN (23:59)
[2023-11-28] MEDS ORDERED: GLUCOSE 40% GEL 15 GM TUBE PO PRN (23:59)
[2023-11-28] MEDS ORDERED: DEXTROSE 50% 50 ML SYRINGE IV PRN (23:59)
[2023-11-28] MEDS ORDERED: CARBOHYDRATES FOR HYPOGLYCEMIA PO PRN (23:59)
[2023-11-29] MEDS: INSULIN ASPART PER UNIT CHARGE SC SCH (00:15)
[2023-11-29] MEDS: Heparin IV Adult Wt-Based Low-Dose w/ INITIAL Bolus Protocol IV STA (00:44)
[2023-11-29 05:33] LABS: Basophils # (auto) 0.03 K/uL (0.00-0.20); Basophils % (auto) 0.5 %; Eosinophils # (auto) 0.08 K/uL (0.00-0.50); Eosinophils % (auto) 1.4 %; Hematocrit (blood only) 36.9 % (42.0-52.0); Hemoglobin 12.2 g/dl (14.0-18.0); Immature Granulocytes # (auto) 0.08 K/uL (0.01-0.20); Immature Granulocytes % (auto) 1.4 %; Lymphocytes # (auto) 1.38 K/uL (1.20-3.40); Lymphocytes % (auto) 23.5 %; Mean Corpuscular Hemoglobin 31.5 pg (25.0-34.0); Mean Corpuscular Hgb Conc 33.1 g/dL (32.0-36.0); Mean Corpuscular Volume 95.3 fL (80.0-100.0); Mean Platelet Volume 9.6 fL (9.4-12.4); Monocytes # (auto) 0.52 K/uL (0.11-0.59); Monocytes % (auto) 8.8 %; Neutrophils # (auto) 3.79 K/uL (1.40-6.50); Neutrophils % (auto) 64.4 %; Platelet Count 212 K/uL (130-400); RDW Coefficient of Variation 14.7 % (11.5-14.5); RDW Standard Deviation 51.2 fL (36.4-46.3); Red Blood Count 3.87 M/uL (4.70-6.10); White Blood Count 5.88 K/ul (4.8-10.8)
[2023-11-29] MEDS: LEVOTHYROXINE SODIUM 112 MCG TABLET PO SCH (05:51)
[2023-11-29 06:15] LABS: BUN Creatinine Ratio 19.1 (10-20); Creatinine Clr Calc Pharmacy 66.1 ml/min; Est GFR (African American) 92.3 ml/min; Est GFR (Non-African American) 79.6 ml/min; Magnesium 2.2 mg/dl (1.7-2.4)
--- NOTE | 2023-11-29 07:27 | Hospitalist Progress Note ---
Date of Service November 29, 2023 Assessment & Plan (1) Ventricular mural thrombus: (2) DVT (deep venous thrombosis): (3) Pulmonary embolism: (4) Left leg swelling: Plan Mr. Tavera is an 83 year-old male with longstanding history of coronary heart disease, severe ischemic cardiomyopathy c/b HFrEF s/p dcICD, prior history of LV mural thrombus 2019, GIB requiring transfusion, hypothyroidism and other conditions listed below who was admitted for management of acute PE/DVT. Patient presented to OP appointment and found to have LLE swelling, which OP doppler revealed DVT. Patient sent to ED where work up revealed right pulmonary emboli. ECHO subsequently revealed recurrent LV thrombus, LVEF 25-30% Discussed case with Shuttle Van Driver who reviewed ECHO: given presence of LV thrombus, warfarin is the superior option for AC. Discussed at bedside with patient. He denies any recent GI discomfort, bleeding. He notes his diarrhea has stopped. When discussing colonscopy for future, he states he will likely "not go through with it." He is agreeable to try coumadin once more and advised to notify for any signs of GI bleed. #Right Hilar Pulmonary Embolism (Submassive) #Extensive DVT Left leg OP doppler revealed extensive left DVT and small right groin DVT CTA Chest:Right hilar and lobar emoboli, nonocclusive, no left sided, no RV strain on maginge CTA AB/P: Extensive left femoral DVT presents with symptomatic but hemodynamically stable PE, BNP 398 No Right ventricular strain noted on CTA In these patients, anticoagulation is the mainstay of treatment Unclear trigger, as pt is without past hx suggestive of hypercoagulable state or recent travel. Stable Trop iso known CAD and PE -Anticoagulation: Heparin drip, plan to transition to DOAC -Monitor on tele -Plan for outpatient hypercoagulability studies -Given family hx, factor V Leiden ordered per brother/patient request ECHO: large nonlaminated globular llv apical thrombus Start warfarin tonight, will work with CM for home health/anticoag follow up INR in am #Elevated Troponin likely demand iso PE and known CAD asymptomatic, trend x3 monitor on tele #Left Subclavian Stenosis Focal, 80% stenosis at the origin of left subclavian artery associated with calcific plaquing. OP Vascular Follow up #Vitamin D deficiency #hypomagnesemia #hypocalcemia -Mag corrected from 1.1 to 2.2 Calcium 7.0, 8.5 corrected for albumin Low calcium, severely low Vit D Start Vitamin D 1250 U q 7 days Calcium carbonate BID #Diarrhea *improving #Unintentional weight loss Stool culture on 11/07 negative undergoing GI eval as OP, pending OP EGD/C scope---patient declines No masses/stranding identified on CT ABP #Ischemic Cardiomyopathy s/p BIPIN to LAD 2004 #Chronic HFrEF (LVEF 20% on 07/2023) #Chronic Left Mural Thrombus 2019 (visualized again on CTA) - Home diuretics: Lasix 40mg prn - GDMT: *BetaB: metoprolol succinate 100mg qam *RAAS/ Sb/ SGLT: limited 06/29 hypotension *Veno/Vasodilators: Imdur 30mg daily *ICD: 2019, last interrogated 06/2023 - Strict I/Os, daily weights -Continue ASA and statin #NSVT #HX of ?atrial flutter Per cardiology notes from 09/2023 visit: ". Elevated [id number] Score. Anticoagulation discussed, electing to continue without Coumadin anticoagulation (does not have prescription drug coverage)." continue BB #HLD Continue statin #Hypothyroidism elevated tsh 6.4, normal FT4 continue home levothyroxine #GERD continue PPI DVT Heparin w/ warfarin Dispo like 1-2 days depending on INR and ability to possibly bridge at home; will reassess in am Admission and Anticipated Discharge Date Admission Date: November 28, 2023 Subjective Admitted overnight Reports feeling well in general, states his left leg has been swollen for roughly 5 days--he reports increased sedentary activity secondary to diarrhea concerns over last 2 weeks, but notes that his stool is more formed this morning He states his two other brothers have "clots they are dealing with" but doesn't know if they were diagnosed with a genetic d/o Patient reports recalling a history of his ventricular thrombus. He also reports that he had reservations of resuming Coumadin based upon his gi bleed back in 2021 He states he will not undergo a colonoscopy as he "has had many and they never find anything" He denies any recent bleeding or abdominal pain Discussed the need to resume anticoagulation and coumadin would be best option given extensive nature of clots--patient agreeable Physical Exam Constitutional: WD/WN, vitals as above Respiratory: normal respiratory effort, lungs clear to auscultation Cardiovascular: RRR LLE edema 3+ to knee RLE without edema Gastrointestinal (Abdomen): normal bowel sounds, soft, nontender, no hepatos plenomegaly Musculoskeletal: no cyanosis or clubbing, extremities motor strength 5/5 Results & Data Results & Data Vital Signs (Past 12 Hours) Vital Signs Temp Pulse Pulse Resp BP BP Pulse Ox 11/29/23 02:48 36.3 C L 61 18 102/58 L 94 11/28/23 23:59 64 11/28/23 23:50 11/28/23 23:50 36.3 C L 75 20 105/59 L 93 11/28/23 20:33 64 14 95 11/28/23 20:09 62 14 94 11/28/23 20:00 91/52 L 11/28/23 20:00 65 11/28/23 19:48 108 H 14 94 11/28/23 19:17 111/45 L 11/28/23 19:17 111/45 L 11/28/23 19:15 62 12 95 O2 Del Method 11/29/23 02:48 Room Air 11/28/23 23:59 11/28/23 23:50 Room Air 11/28/23 23:50 Room Air 11/28/23 20:33 11/28/23 20:09 11/28/23 20:00 11/28/23 20:00 11/28/23 19:48 11/28/23 19:17 11/28/23 19:17 11/28/23 19:15 Laboratory Results Short CBC 11/28/23 11/29/23 Range/Units 16:10 05:18 WBC 6.56 5.88 (4.8-10.8) K/ul Hgb 14.4 12.2 L (14.0-18.0) g/dl Hct 43.6 36.9 L (42.0-52.0) % Plt Count 237 212 (130-400) K/uL BMP 11/28/23 11/29/23 16:10 05:18 Sodium 136 136 Potassium 4.7 4.0 Chloride 99 102 Carbon Dioxide 33 H 30 BUN 22 17 Creatinine 1.22 0.89 D Glucose 77 103 H Calcium 7.3 L 7.0 L Liver Function 11/28/23 Range/Units 16:10 Total Bilirubin 0.4 (0.2-1.0) mg/dl AST 27 (13-39) U/L ALT 24 (7-52) U/L Alkaline Phosphatase 109 H (34-104) U/L Albumin 2.1 L (3.4-5.0) gm/dl Urine 11/28/23 Range/Units 19:53 Urine Color Yellow Urine Appearance Clear (Clear) Urine pH 6.5 (4.5-7.5) Ur Specific [place] 1.021 (1.000-1.030) Urine Protein Negative (Negative) Urine Glucose (UA) Negative (Negative) Medications Administered Home Medications Medication Instructions Recorded Confirmed Last Taken aspirin 81 mg tablet,delayed 81 mg PO QAM 01/14/20 11/28/23 11/28/23 release (Amanda Low Dose Aspirin) cyanocobalamin (vitamin B-12) 1,000 mcg PO QAM 01/14/20 11/28/23 11/28/23 1,000 mcg capsule isosorbide mononitrate [address] [facility] 01/14/20 11/28/23 11/28/23 tablet,extended release 24 hr metformin 1,000 mg tablet 1,000 mg PO BID 01/14/20 11/28/23 11/28/23 08:00 nitroglycerin 0.4 mg sublingual 0.4 mg sublingual UD PRN Chest Pain 01/14/20 11/28/23 Unknown tablet (Nitrostat) atorvastatin 40 mg tablet 40 mg PO QAM 06/22/21 11/28/23 11/28/23 furosemide 40 mg tablet 40 mg PO DAILY PRN EDEMA/FLUID 09/20/21 11/28/23 09/02/21 RETENTION albuterol sulfate 90 mcg/actuation 2 puff inhalation Q4H PRN 11/28/23 11/28/23 Unknown aerosol inhaler COUGH/SHORT OF BREATH/WHEEZING clobetasol 0.05 % topical ointment 1 applic topical BID PRN Skin 11/28/23 11/28/23 Unknown Irritation ferrous sulfate 27 mg iron tablet 27 mg PO DAILY 11/28/23 11/28/23 11/28/23 levothyroxine 112 mcg tablet 112 mcg PO DAILYBB 11/28/23 11/28/23 11/28/23 metoprolol succinate 100 mg 100 mg PO QAM 11/28/23 11/28/23 11/28/23 tablet,extended release 24 hr pantoprazole 40 mg tablet,delayed 40 mg PO BID 11/28/23 11/28/23 11/28/23 08:00 release apixaban 5 mg tablet (Eliquis) 5 mg PO BID #74 tabs 11/29/23 Unknown Active Medications Generic Name Dose Route Start Last Admin Trade Name [place] PRN Reason Stop Dose Admin Heparin Sodium/Dextrose 25,000 units in 500 mls @ 17 mls/hr 11/28/23 21:45 11/29/23 06:58 Heparin Sodium/Dextrose IV 12/28/23 21:44 850 units/hr .Q24H JOVANY 17 mls/hr Titration Protocol 850 UNITS/HR Insulin Aspart 0 units 11/28/23 23:59 11/29/23 00:15 Insulin Aspart Per Unit Charge SC 12/28/23 23:58 Not Given ACHS JOVANY Levothyroxine Sodium 112 mcg 11/29/23 06:30 11/29/23 05:51 Levothyroxine Sodium 112 Mcg Tablet PO 12/29/23 06:29 112 mcg DAILYBB JOVANY Administration (2) DVT (deep venous thrombosis) Affected thrombotic vein of extremity: unspecified vein of extremity Chronicity: acute DVT location: lower extremity Laterality: bilateral Qualified Code(s): I82.403 - Acute embolism and thrombosis of unspecified deep veins of lower extremity, bilateral (3) Pulmonary embolism Acute cor pulmonale presence: without acute cor pulmonale Chronicity: acute Pulmonary embolism type: unspecified Qualified Code(s): I26.99 - Other pulmonary embolism without acute cor pulmonale
[2023-11-29] MEDS: CYANOCOBALAMIN (B-12) 500 MCG TABLET PO SCH (08:15)
[2023-11-29] MEDS: ASPIRIN 81 MG ECTAB PO SCH (08:18)
[2023-11-29] MEDS: PANTOprazole 40 MG TAB PO SCH (08:18)
[2023-11-29] MEDS: ATORVASTATIN 40 MG TAB PO SCH (08:18)
[2023-11-29] MEDS: FERROUS SULFATE 325 MG TAB PO SCH (08:20)
[2023-11-29] MEDS: METOPROLOL SUCC 25MG EXT REL TAB PO SCH (08:25)
[2023-11-29] MEDS: ISOSORBIDE MONO EXTENDED REL 30 MG TABCR PO SCH (08:25)
[2023-11-29] MEDS: SODIUM CHLORIDE 0.9% 1,000 ML IV ONE (08:40)
--- OUTSIDE RECORDS SUMMARY | 2023-11-29 11:24 | External Medical Summary | Summary of Care ---
Author Name Unknown Organization [facility] Address [address] [place] [address] Phone [phone] Care Team Providers Care Squaring Machine Operator Name Role Phone Kaitlin Barry MD Primary Care Prov ider Reason for Referral * Evaluate & Treat - Unlimited Visits (Within 3 days (urgent)) - Authorized Specialty Diagnoses / Procedures Referred By Contac t Referred To Contact Nephrology Diagnoses STEVENSON (acute kidney injury) (HCC) Kaitlin Barry MD [address] [place] [address] [place] [address] Referral ID Status Reason Start Date Expiration Date Visits Requested Visits Authorized [id number] Authorized Specialty Services Required 11/22/[phone] Question Answer Referral Priority Within 3 days (urgent) Where should this appointment be scheduled? [facility] What condition is this patient being seen for? Acute kidney injury Reason for Visit * Reason Onset Date Comments Appointment 11/22/2023 Nephrology/Renal US Encounter Details Date Type Department Care Team (Late st Contact Info) Description 11/22/2023 Telephone Family Medicine [address] [place] [address] Kaitlin Barry MD [address] [place] [address] [place] [id number] Appointment (Nephrology/Renal US ) Allergies Active Allergy Reactions Criticality Noted Date Comments No Known Drug Allergy 02/09/2003 documented as of this encounter (statuses as of 11/28/2023) Medications Medication Sig Dispensed Refills Start Date End Date Status Cyanocobalamin (B-12) 1000 MCG CapsuleIndications:B1 2 deficiency Take 1 Cap by mouth daily. 30 Cap 5 01/14/2016 Active Blood Glucose Monitoring Suppl (Punchbowl ULTRA SYSTEM) W/DEVICE KITIndications:Type 2 diabetes mellitus with hemoglobin A1c goal of less than 7.0% ([facility]) Test once a day DX:E11.9 1 Kit 04/12/2016 Active nitroglycerin (NITROSTAT) 0.4 MG SUBLIndications:Chron ic ischemic heart disease one tab under tongue as needed for chest pain maximum 3 doses 25 Tab 5 08/04/2019 Active Iron 28 MG Oral Tablet Take 1 Tablet by mouth in the morning. 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 30 Tablet 07/21/2022 Active Seymour InnovativeTouch UltraSoft LancetsIndications:Ty pe 2 diabetes mellitus with hemoglobin A1c goal of less than 7.0% ([facility]) USE 1 TO CHECK GLUCOSE UP TO 4 TIMES DAILY DIRECTED E11.9 400 Each 3 07/21/2022 Active Ventolin HFA 108 (90 Base) MCG/ACT Inhalation Aerosol SolutionIndications:P neumonia of left lower lobe due to infectious organism Inhale 2 Puffs by mouth every 4 hours as needed for Cough, Shortness of Breath or Wheezing. 18 g 1 10/18/2022 Active Hydrocortisone 2.5 % External CreamIndications:Hemo rrhoids, unspecified hemorrhoid type Apply a small amount to rectal area twice daily for up to 14 days. 20 g 12/12/2022 Active Ketoconazole 2 % External ShampooIndications:De rmatitis Apply topically to affected area every 3 days. Shampoo twice a week for 4 weeks. 120 mL 1 01/12/2023 Active Levothyroxine Sodium 112 MCG Oral TabletIndications:Acq uired hypothyroidism TAKE 1 TABLET BY MOUTH ONCE DAILY FIRST THING IN THE MORNING AT LEAST 30 MINUTES PRIOR TO BREAKFAST OR OTHER MEDS 90 Tablet 3 05/23/2023 Active Isosorbide Mononitrate ER 30 MG Oral Tablet Extended Release 24 Hour (Imdur)Indications:Ch ronic systolic heart failure (HCC),Dyslipidemia, goal LDL below 70,Ischemic cardiomyopathy,Essent ial (primary) hypertension TAKE 1 TABLET BY MOUTH ONCE DAILY IN THE MORNING 90 Tablet 3 07/09/2023 Active Atorvastatin Calcium 40 MG Oral Tablet (Lipitor)Indications: Dyslipidemia, goal LDL below 70,Chronic ischemic heart disease,Diabetes mellitus with stage 3 chronic kidney disease ([facility]) TAKE 1 TABLET BY MOUTH IN THE MORNING 90 Tablet 3 07/11/2023 Active metFORMIN HCl 1000 MG Oral TabletIndications:Ayesha betes mellitus with stage 3 chronic kidney disease ([facility]) Take 1 tablet by mouth twice daily 180 Tablet 1 08/10/2023 Active Metoprolol Succinate ER 100 MG Oral Tablet Extended Release 24 Hour (toPROL XL)Indications:Ischem ic cardiomyopathy,Sustai leslie [place] (ventricular tachycardia) ([facility]),Dyslipidemia, goal LDL below 70,Essential (primary) hypertension,Chronic systolic heart failure ([facility]) TAKE 1 TABLET BY MOUTH IN THE MORNING 90 Tablet 1 08/10/2023 Active Pantoprazole Sodium 40 MG Oral Tablet Delayed Release TAKE 1 TABLET BY MOUTH ONCE DAILY IN THE MORNING AND 1 TABLET ONCE DAILY AT BEDTIME 180 Tablet 1 08/10/2023 Active OneTouch Ultra In Vitro StripIndications:Type 2 diabetes mellitus with hemoglobin A1c goal of less than 7.0% ([facility]) USE 1 STRIP TO CHECK GLUCOSE TWICE DAILY FASTING AND EVENING 200 Strip 1 08/10/2023 Active Furosemide 40 MG Oral Tablet (Lasix)Indications:Ch ronic systolic heart failure (HCC),STEVENSON (acute kidney injury) ([facility]) As needed 10/23/2023 Active Clobetasol Propionate 0.05 % External Ointment (Temovate)Indications :Dermatitis Apply topically to affected area 2 times a day. To affected area on SCALP for up to two weeks. Use pea sized amount. 30 g 2 11/06/2023 Active documented as of this encounter (statuses as of 11/28/2023) Active Problems Problem Noted Date Diagnosed Date Type 2 diabetes mellitus wit h stage 2 chronic kidney disease, without long-term current use of insulin 11/06/2023 NSVT (nonsustained ventricular tachycardia) 10/26 Chronic obstructive pulmonary disease 10/28/2021 Overview: Mineral dust expossure. Former smoker. Had PFTs 2014. Was prescribed inhalers years ago but he declined. Feels his lung function is good as it is in Jun 2022. Declined PFTs and trial inhalers. 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 Type 2 diabetes mellitus wit h hemoglobin A1c goal of less than 7.0% 03/25/2009 Overview: Per Diabetes Taxonomy. 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 stage 2 chronic kidney disease 02/21/2023 Type 2 diabetes mellitus wit h stage 2 chronic kidney disease, without long-term current use of insulin 02/21/2023 03/08/2023 Post herpetic neuralgia 07/21/202206/29 Type 2 diabetes mellitus wit h stage 3a chronic kidney disease, without long-term current use of insulin 06/21/2021 07/13/2021 Protein-calorie malnutrition 03/22/2020 09/21/2020 Esophagitis 11/17/2019 02/21/2023 Diabetes mellitus with stage 3 chronic kidney disease 09/04/2017 10/11/2018 Overview: Per CKD protocol #1 High triglycerides 06/06/2011 5 Heart failure, systolic 03/25/200909/25 Overview: Per Heart Failure Taxonomy Protocol. Benign neoplasm of colon 01/17/200701/2019 Overview: hyperplastic tissue-repeat colonoscopy in 3-5 years Benign prostatic hyperplasia 05/15/2002 12/18/2014 Overview: ICD-10 update of inactive term ICD-10 update of inactive term left shoulder bursitis 05/01/200112/18 FOREIGN BDY EXT EYE NOS 02/28/200111/26 Screening for prostate cancer 02/28/2001 08/05/2008 Overview: Resolved per Screening Diagnosis Protocol #6 COPD, moderate 10/29/2000 01/10/2016 Overview: PER COPD PROTOCOL #24. LAST PFT -02/16/12 CHR ISCHEMIC HRT DIS NOS Heart failure, etiology unknown 03/25/2009 Overview: Per Heart Failure Taxonomy Protocol. COPD, severity to be determined 04/09/2012 Type 2 diabetes mellitus wit h hemoglobin A1c goal of less than 7.0% 03/25/2009 Overview: Per Diabetes Taxonomy. ICD-10 update of inactive term Carpal tunnel syndrome 10/03 BENIGN NEOPLASM LG BOWEL 01/2019 Mixed dyslipidemia 9 Overview: Per Lipid Taxonomy. documented as of this encounter (statuses as of 11/28/2023) Immunizations Name Administration Dates Next Due COVID-19 mRNA, LNP-s, No Pre serve, 2-Dose Series (locr) 09/06/2020,08/16/2020 COVID-19, LNP-s, No Preserve , Alexander-sucrose, Ages 12+ (locr) 07/05/2021 COVID-19, MRNA-LNP, 23-24, P F, 30 MCG/0.3 mL, 12 YRS AND ABOVE, IM (PFIZER-Comirnaty) 04/17/2023 Influenza, Whole Virus 05/10/2000 Pneumococcal Conjugate Vacc, 13 Valent (Prevnar) 04/16/2015 Pneumococcal Polysaccharide PPV23 (Pneumovax) 12/27/2007,05/15/2002 Season Influenza, Quad, PF, Adjuvanted, 65+ Yrs, IM (FLUAD) 02/06/2020 Seasonal Influenza, PF, 6 M & above, IM , (FluLaval or Fluzone) 02/25/2018,04/16/2017 Seasonal Influenza, Quadriva lent Hd (Fluzone Hd) 02/21/2023,04/07/2022,02/24/2021 Seasonal Influenza, Quadriva lent, No Preserve, IM 04/07/2016,04/16/2015 Seasonal Influenza, Split, I IV3, With Preserve, Inj 02/21/2014,03/11/2013,03/16/2012,02/21,02/17/2010,02/09/2009,03/26/2008 ,04/10/2007,02/16/2006,04/18/2005,03/28,05/01/2001 Seasonal Influenza, Trivalen t, Adjuvanted, 65+ yrs 04/09/2019 TD - Tetanus/Diptheria (ADULT) 12/27/2007 TDAP (age 10 and older)(Boostrix) 11/06/2023, documented as of this encounter Social History Tobacco Use Types Packs/Day Years Used Date Smoking Tobacco: Former Cigarettes Q uit: 05/27/1992 Smokeless Tobacco: Never Comments:Pt quit smoking in 1991 Alcohol Use Standard Drinks/Week Comments Yes 0 (1 standard drink = 0.6 oz pur e alcohol) "a we sip every now and then" PHQ-2 Answer Date Recorded PHQ-2 Score 0 01/01/2020 Hunger Vital Sign Answer Date Recorded Worried About Running Out of Food in the Last Ye ar Never true 08/04/2019 Ran Out of Food in the Last Year Never true 08/04/2019 Sex and Gender Information Value Date Recorded Sex Assigned at Not on file Gender Identity Not on file Sexual Orientation Not on file Job Start Date Occupation Industry Not on file Not on file Not on file documented as of this encounter Miscellaneous Notes * Telephone Encounter - Arturo CarpenterSHANITA - 11/28/2023 11:44 AM EDT I called James to schedule the US and inform him of the December 04 appt that someone else scheduled. He stated he has no clue why all of these appts need to be scheduled. He does not have any money to payfor all of this. Would like doctor/nurse to call him to discuss this. I did NOT cx the Nephrology appt, but did NOT schedule the US yet as he was not agreeing to it. * Telephone Encounter - Elvie Murphy OSA - 11/26/2023 9:59 AM EDT I left message on patient's VM to call me (RE: Nephrology appt - I did schedule him for 12/05/23 @ 1:40 pm at [facility]. He needs to schedule a renal US also). * Telephone Encounter - Kaitlin Barry MD - 11/22/2023 4:48 PM EDT Labs reviewed. His kidney function has dropped, and his potassium level is high. Recommend nephrology consult. Increase water intake. Stop all NSAIDS, limit salt/sodium to 2000mg daily. Stop/reduce potassium rich foods (orange jucie, potatoes, avocados, bananas), and recheck labson Sunday. documented in this encounter Plan of Treatment Upcoming Encounters Date Type Department Care Team (Late st Contact Info) Description 11/28/2023 1:30 PM EDT Office Visit Gastroenterology, [facility] [address] [address] Ja Dinero CRNP [address] [place] [address] 12/04/2023 1:00 PM EDT Cardiac Studies Cardiology [address] [place] [address] [facility] [address] [place] [address] 12/05/2023 1:40 PM EDT Office Visit Nephrology [address] [place] [address] Ruthie Bravo MD [address] [place] [address] 05/20/2024 9:00 AM EST Office Visit Cardiology [address] [place] [address] Patrice Cheung PA-C [address] [place] [address] Scheduled Orders Name Type Priority Associated Diagnoses Orde r Schedule RENAL FUNCTION PANEL Lab Routine STEVENSON (acute kidney injury) ([facility]) Expected: 11/22/2023, Expires: 11/21/2024 URINALYSIS, REFLEX TO MICROSCOPIC Lab Routine STEVENSON (acute kidney injury) ([facility]) Expected: 11/22/2023, Expires: 11/21/2024 ALBUMIN / CREATININE RATIO, URINE Lab Routine STEVENSON (acute kidney injury) (HCC) Expected: 11/22/2023, Expires: 11/21/2024 US RENAL Medical Imaging Routine STEVENSON (acute kidney injury) (HCC) Expected: 11/22/2023, Expires: 12/21/2024 HEPATITIS B SURFACE ANTIGEN Lab Routine STEVENSON (acute kidney injury) (HCC) Expected: 11/22/2023, Expires: 11/21/2024 Scheduled Referrals Name Type Priority Associated Diagnoses Orde r Schedule NEPHROLOGY REFERRAL OP Referral Within 3 days (urgent) STEVENSON (acute kidney injury) (HCC) Ordered: 11/22/2023 Health Maintenance Due Date Last Done Comments Depression Screening 12/31/2020 01/01/2020 COVID-19 Vaccine ( season) 2023 04/17/2023, 07/05/2021, 07/05/2021, Additional history exists Diabetic Eye Exam 01/11/2024 01/10/2023, , 06/02/2021, Additional history exists Influenza Vaccine (FLU shot) (#1) 2024 02/21/2023, 04/07/2022, 02/24/2021, Additional history exists HbA1c 02/16/2024 08/16/2023, 01/27, 10/28/2021, Additional history exists Albumin/Creatinine Ratio 02/22/2024 023, 10/28/2021, 01/19/2021, Additional history exists CKD PHOS USE SMARTSET 09615 02/22/202401/27, 06/21/2021, 03/22/2020, Additional history exists Diabetic Foot Exam 02/22/2024 02/21/2023, 0 10/28/2021, 09/21/2020, Additional history exists GFR 05/21/2024 11/20/2023, 10/26, 08/16/2023, Additional history exists B-12 08/15/2024 08/16/2023, 02/0 12/2022, 06/21/2021, Additional history exists TSH 08/15/2024 08/16/2023, 01/27, 07/05/2022, Additional history exists O2 ASSESSMENT COMPLETED IN PAST YEAR FOR COPD 11/05/2024 11/06/2023 CKD HGB USE SMARTSET 31495 11/19/202411/19, 11/20/2023, 11/06/2023, Additional history exists DTaP,Tdap,and Td Vaccines (3 - Td or Tdap) 11/05/2033 11/06/2023, 03/11/2013, 12/27/2007 Pneumococcal Vaccine: 65+ Years Completed 04/16/2015, 12/27/2007, 05/15/2002 Alpha-1 Antitrypsin Discontinued DXA Scan Discontinued HPV (Gardasil) Vaccine Aged Out No lo nger eligible based on patient's age to complete this topic Hepatitis B Vaccine Aged Out No longe r eligible based on patient's age to complete this topic MENINGOCOCCAL (MENACTRA/MENVEO) Aged Out No longer eligible based on patient's age to complete this topic Zoster Vaccines Discontinued documented as of this encounter Medical Devices Implanted Type Area Intervention Manager Device Identifier Shelf Expiration Date Model / Serial / Lot Dbx 10cc [id number] - [id number] - [id number] Implanted:Qt y: 1 on 07/14/2021 by Kristian [place] [facility] 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 FND [id number] 01/28/2023 [id number] / [id number] / [id number] Prox Lat Humerus Plate Implanted:Qt y: 1 on 07/14/2021 by Kristian Chappell DO [place] [facility] [place]: Shoulder MALLORY : OR[employer] [id number] / / Screw Nlk A3 Ti 3.5x32mm - [id number] Implanted:Qt y: 3 on 07/14/2021 by Kristian [place]appell DO [place] [facility] [place]: Shoulder MALLORY : TRAUMA [id number] / / Screw Lk A3 Ti 4x40mm - [id number] Implanted:Qt y: 1 on 07/14/2021 by Kristian Chappell DO [place] [facility] [place]: Shoulder MALLORY : TRAUMA [id number] / / Screw Lk A3 Ti 4x55mm - [id number] Implanted:Qt y: 1 on 07/14/2021 by Kristian Chappell DO at [place] [facility] [place]: Shoulder MALLORY : TRAUMA [id number] / / Screw Lk A3 Ti 4x30mm - [id number] Implanted:Qt y: 1 on 07/14/2021 by Kristian Chappell DO [place] [facility] [place]: Shoulder MALLORY : TRAUMA [id number] / / 3.5x55 Locking Screw Implanted:Qt y: 1 on 07/14/2021 by Kristian Chappell DO [place] [facility] [place]: Shoulder MALLORY : ORTHOPAEDICS [id number] / / documented as of this encounter Visit Diagnoses Diagnosis STEVENSON (acute kidney injury) (HCC)- Primary Acute kidney failure, unspecified documented in this encounter Advance Directives * Full Code (Latest Code Status on File) Date Activated Date Inactivated Comments 07/14/2021 2:48 PM 07/15/2021 12:26 AM This order reflects the patients wishes and were consensually agreed upon. Question Answer Comments Discussion of Advance Directives occurred with: Not Discussed Care Teams Squaring Machine Operator Relationship Specialty Start Date End Date Kaitlin Barry MD [address] [place] [address] [place] [phone] PCP - General Family Medicine 04/22/19 documented as of this encounter
--- OUTSIDE RECORDS SUMMARY | 2023-11-29 11:25 | External Medical Summary | Summary of Care ---
Author Name Unknown Organization [facility] Address [address] [place] [address] Phone [phone] Care Team Providers Care Motor Vehicle Operator Road Supervisor Name Role Phone Kaitlin Barry MD Primary Care Prov ider Reason for Visit * Reason Onset Date Comments Appointment 11/26/2023 Encounter Details Date Type Department Care Team (Late st Contact Info) Description 11/26/2023 Telephone Nephrology, [facility] [address] [place] [address] Ruthie Bravo MD [address] [facility] [place] [address] Appointment Allergies Active Allergy Reactions Criticality Noted Date Comments No Known Drug Allergy 02/09/2003 documented as of this encounter (statuses as of 11/26/2023) Medications Medication Sig Dispensed Refills Start Date End Date Status Cyanocobalamin (B-12) 1000 MCG CapsuleIndications:B1 2 deficiency Take 1 Cap by mouth daily. 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 30 Tablet 07/21/2022 Active OneTouch UltraSoft LancetsIndications:Ty pe 2 diabetes mellitus with hemoglobin A1c goal of less than 7.0% ([facility]) USE 1 TO CHECK GLUCOSE UP TO [...] mellitus with stage 3 chronic kidney disease (HCC) TAKE 1 TABLET BY MOUTH IN THE MORNING 90 Tablet 3 07/11/2023 Active metFORMIN HCl 1000 MG Oral TabletIndications:Ayesha betes mellitus with stage 3 chronic kidney disease (HCC) Take 1 tablet by mouth twice daily 180 Tablet 1 08/10/2023 Active Metoprolol Succinate ER 100 MG Oral Tablet Extended Release 24 Hour (toPROL XL)Indications:Ischem ic cardiomyopathy,Sustai leslie [place] (ventricular tachycardia) ([facility]),Dyslipidemia, goal LDL below 70,Essential (primary) hypertension,Chronic systolic heart failure ([facility]) TAKE 1 TABLET BY MOUTH IN THE MORNING 90 Tablet 1 08/10/2023 Active Pantoprazole Sodium 40 MG Oral Tablet Delayed Release TAKE 1 TABLET BY MOUTH ONCE DAILY IN THE MORNING AND 1 TABLET ONCE DAILY AT BEDTIME 180 Tablet 08/10/2023 Active OneTouch Ultra In Vitro StripIndications:Type 2 diabetes mellitus with hemoglobin A1c goal of less than 7.0% ([facility]) USE 1 STRIP TO CHECK GLUCOSE TWICE DAILY FASTING AND EVENING 200 Strip 08/10/2023 Active Furosemide 40 MG Oral Tablet (Lasix)Indications:Ch ronic systolic heart failure ([facility]),STEVENSON (acute kidney injury) ([facility]) As needed 10/23/2023 Active Clobetasol Propionate 0.05 % External Ointment (Temovate)Indications :Dermatitis Apply topically to affected area 2 times a day. To affected area on SCALP for up to two weeks. Use pea sized amount. 30 g 2 11/06/2023 Active documented as of this encounter (statuses as of 11/26/2023) Active Problems Problem Noted Date Diagnosed Date Type 2 diabetes mellitus wit h stage 2 chronic kidney disease, without long-term current use of insulin 11/06/2023 NSVT (nonsustained ventricular tachycardia) 10/26 Chronic obstructive pulmonary disease 10/28/2021 Overview: [place] dust expossure. Former smoker. Had PFTs 2014. [...] of inactive term GENERAL OSTEOARTHROSIS 05/01/2001 [place] (myocardial infarction) BPH without obstruction/lower urinary tract symp toms documented as of this encounter (statuses as of 11/26/2023) Resolved Problems Problem Noted Date Diagnosed Date [...] BENIGN NEOPLASM LG BOWEL 01/2019 Mixed dyslipidemia Overview: Per Lipid Taxonomy. documented as of this encounter (statuses as of 11/26/2023) Immunizations Name Administration Dates Next Due COVID-19 mRNA, LNP-s, No Pre serve, 2-Dose Series ([employer]) 09/06/2020,08/16/2020 COVID-19, LNP-s, No Preserve , Alexander-sucrose, Ages 12+ (Pfizer) 07/05/2021 COVID-19, MRNA-LNP, 23-24, P F, 30 MCG/0.3 mL, 12 YRS AND ABOVE, IM (PFI[employer]ER-Comirnaty) 04/17/2023 Pneumococcal Conjugate Vacc, 13 Valent (Prevnar) 04/16/2015 Pneumococcal Polysaccharide PPV23 (Pneumovax) 12/27/2007 Season Influenza, Quad, PF, Adjuvanted, 65+ Yrs, IM (FLUAD) 02/06/2020 Seasonal Influenza, PF, 6 M & above, IM , (FluLaval or Fluzone) 02/25/2018,04/16/2017 Seasonal Influenza, Quadriva lent Hd (Fluzone Hd) 02/21/2023,04/07/2022,02/24/2021 Seasonal Influenza, Quadriva lent, No Preserve, IM 04/07/2016,04/16/2015 Seasonal Influenza, Split, I IV3, With Preserve, Inj 02/21/2014,03/11/2013,03/16/2012,02/21,02/17/2010,02/09/2009,03/26/2008 ,04/10/2007,02/16/2006 Seasonal Influenza, Trivalen t, Adjuvanted, 65+ yrs [...] encounter Miscellaneous Notes * Telephone Encounter - Sylvia Villegas OSA - 11/26/2023 8:55 AM EDT 11/26/23 Called patient, left message. Trying to get patient scheduled with Nephrology for appointment. Referral is under active requests. Please offer patient in MV on 12/[address] Bravo. My G notactive. documented in this encounter Plan of Treatment Upcoming Encounters Date Type Department Care Team (Late st Contact Info) Description 11/28/2023 1:30 PM EDT Office Visit Gastroenterology, [facility] [address] [place] [address] Ja Dinero CRNP [address] [place] [address] 12/04/2023 1:00 PM EDT Cardiac Studies Cardiology [address] [place] [address] [facility], Pac[facility] [address] [place] [address] 05/20/2024 9:00 AM EST Office Visit Cardiology [address] [place] [address] Patrice Cheung PA-C [address] [place] [address] Health Maintenance Due Date Last Done Comments [...] Additional history exists CKD PHOS USE SMARTSET 09015 02/22/202401/27, 06/21/2021, 03/22/2020, Additional history exists Diabetic Foot Exam 02/22/2024 02/21/2023, 0 10/28/2021, 09/21/2020, Additional history exists GFR 05/21/2024 11/20/2023, 10/26, 08/16/2023, Additional history exists B-12 08/15/2024 08/16/2023, 02/0 12/2022, 06/21/2021, Additional history exists TSH 08/15/2024 08/16/2023, 01/27, 07/05/2022, Additional history exists O2 ASSESSMENT COMPLETED IN PAST YEAR FOR COPD 11/05/2024 11/06/2023 CKD HGB USE SMARTSET 52384 11/19/202411/19, 11/20/2023, 11/06/2023, Additional history exists DTaP,Tdap,and Td Vaccines (3 - Td or Tdap) 11/05/2033 11/06/2023, 03/11/2013, 12/27/2007 Pneumococcal Vaccine: 65+ Years Completed 04/16/2015, 12/27/2007, 05/15/2002 Alpha-1 Antitrypsin Discontinued DXA Scan Discontinued GARDASIL-HPV IMMUNIZATION SERIES Aged Out No longer eligible based on patient's age to complete this topic Hepatitis B Aged Out No longer eligi ble based on patient's age to complete this topic MENINGOCOCCAL (MENACTRA/MENVEO) Aged Out No longer eligible based on patient's age to complete this topic Zoster Vaccines Discontinued documented as of this encounter Medical Devices Implanted Type Area User Experience Researcher Device Identifier Shelf Expiration Date Model / Serial / Lot Dbx 10cc [id number] - [id number] - [id number] Implanted:Qt y: 1 on 07/14/2021 by Kristian Chappell DO at OR [facility] 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 FND [id number] 01/28/2023 [id number] / [id number] / [id number] Prox Lat Humerus Plate Implanted:Qt y: 1 on 07/14/2021 by Kristian Chappell DO OR [facility] Left: Shoulder MALLORY : ORTHOPAEDICS [id number] / / Screw Nlk A3 Ti 3.5x32mm - [id number] Implanted:Qt y: 3 on 07/14/2021 by Kristian Chappell DO OR [facility] Left: Shoulder MALLORY : TRAUMA [id number] / / Screw Lk A3 Ti 4x40mm - [id number] Implanted:Qt y: 1 on 07/14/2021 by Kristian Chappell DO OR [facility] Left: Shoulder MALLORY : TRAUMA [id number] / / Screw Lk A3 Ti 4x55mm - [id number] Implanted:Qt y: 1 on 07/14/2021 by Kristian Chappell, at OR [facility] Left: Shoulder MALLORY : TRAUMA [id number] / / Screw Lk A3 Ti 4x30mm - [id number] Implanted:Qt y: 1 on 07/14/2021 by Kristian Chappell, at OR [facility] Left: Shoulder MALLORY : TRAUMA [id number] / / 3.5x55 Locking Screw Implanted:Qt y: 1 on 07/14/2021 by Kristian Chappell, at OR [facility] Left: Shoulder MALLORY : ORTHOPAEDICS [id number] / / documented as of this encounter Advance Directives * Full Code (Latest Code Status on File) Date Activated Date Inactivated Comments 07/14/2021 2:48 PM 07/15/2021 12:26 AM This order reflects the patients wishes and were consensually agreed upon. Question Answer Comments Discussion of Advance Directives occurred with: Not Discussed Care Teams Motor Vehicle Operator Road Supervisor Relationship Specialty Start Date End Date Kaitlin Barry MD [address] [place] [address] [place] [id number] PCP - General Family Medicine 04/22/19 documented as of this encounter
--- OUTSIDE RECORDS SUMMARY | 2023-11-29 11:25 | External Medical Summary | Summary of Care ---
Author Name Unknown Organization [facility] Address [address] [place] [address] Phone [phone] Care Team Providers Care Fitness Consultant Name Role Phone Kaitlin Barry MD Primary Care Prov ider Reason for Visit * Reason Onset Date Comments Test Results 11/08/2023 Encounter Details Date Type Department Care Team (Late st Contact Info) Description 11/08/2023 Telephone Family [address] [phone] Kaitlin Barry MD [address] [place], [place] [address] [address] Test Results Allergies Active Allergy Reactions Criticality Noted Date Comments No Known Drug Allergy 02/09/2003 documented as of this encounter (statuses as of 11/09/2023) Medications Medication Sig Dispensed Refills Start Date End Date Status Cyanocobalamin (B-12) 1000 MCG CapsuleIndications:B1 2 deficiency Take 1 Cap by mouth daily. 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 30 Tablet 07/21/2022 Active OneTouch UltraSoft LancetsIndications:Ty pe 2 diabetes mellitus with hemoglobin A1c goal of less than 7.0% ([facility]) USE 1 TO CHECK GLUCOSE [...] XL)Indications:Ischem ic cardiomyopathy,Sustai leslie VT (ventricular tachycardia) ([facility]),Dyslipidemia, goal LDL below 70,Essential (primary) hypertension,Chronic systolic heart failure ([facility]) TAKE 1 TABLET BY MOUTH IN THE MORNING 90 Tablet 1 08/10/2023 Active Pantoprazole Sodium 40 MG Oral Tablet Delayed Release TAKE 1 TABLET BY MOUTH ONCE DAILY IN THE MORNING AND 1 TABLET ONCE DAILY AT BEDTIME 180 Tablet 08/10/2023 Active OneTouch Ultra In Vitro StripIndications:Type 2 diabetes mellitus with hemoglobin A1c goal of less than 7.0% ([facility]) USE 1 STRIP TO CHECK GLUCOSE TWICE DAILY FASTING AND EVENING 200 Strip 08/10/2023 Active Furosemide 40 MG Oral Tablet (Lasix)Indications:Ch ronic systolic heart failure ([facility]),STEVENSON (acute kidney injury) ([facility]) As needed 10/23/2023 Active Clobetasol Propionate 0.05 % External Ointment (Temovate)Indications :Dermatitis Apply topically to affected area 2 times a day. To affected area on SCALP for up to two weeks. Use pea sized amount. 30 g 2 11/06/2023 Active documented as of this encounter (statuses as of 11/09/2023) Active Problems Problem Noted Date Diagnosed Date Type 2 diabetes mellitus wit h stage 2 chronic kidney disease, without long-term current use of insulin 11/06/2023 NSVT (nonsustained ventricular tachycardia) 10/26 Chronic obstructive pulmonary disease 10/28/2021 Overview: [place] dust expossure. Former smoker. Had PFTs 2014. [...] of inactive term GENERAL OSTEOARTHROSIS 05/01/2001 [place] (myocardial infarction) BPH without obstruction/lower urinary tract symp toms documented as of this encounter (statuses as of 11/09/2023) Resolved Problems Problem Noted Date Diagnosed Date [...] as of this encounter (statuses as of 11/09/2023) Immunizations Name Administration Dates Next Due COVID-19 mRNA, LNP-s, No Pre serve, 2-Dose Series ([employer]) 09/06/2020,08/16/2020 COVID-19, LNP-s, No Preserve , Alexander-sucrose, Ages 12+ ([employer]) 07/05/2021 COVID-19, MRNA-LNP, 23-24, P F, 30 MCG/0.3 mL, 12 YRS AND ABOVE, IM ([employer]-Comirnat) 04/17/2023 Influenza, Whole Virus 05/10/2000 Pneumococcal Conjugate [...] encounter Miscellaneous Notes * Telephone Encounter - Kaitlin Barry MD - 11/09/2023 4:16 PM EDT OK to use Immodium (over the counter) up to 4 tablets per day. * Telephone Encounter - Gabi Tucker LPN - 11/08/2023 3:52 PM EDT He is Aware of Note below He is taking Protonix BID and Imodium , but is very upset due to Diarrhea is still going on and wants something to help until he can get in to GI apt on 11/27 or EGD/YOLI done * Telephone Encounter - Kaitlin Barry MD - 11/08/2023 10:56 AM EDT Please let him know his stool test is NEGATIVE for infection. I suspect he has another duodenal ulcer, and am glad he is getting EGD set up through GI dept. Please confirm he is taking PRotonix BID. documented in this encounter Plan of Treatment Upcoming Encounters Date Type Department Care Team (Late st Contact Info) Description 11/28/2023 1:30 PM EDT Office Visit Gastroenterology, [facility] [address] [place] [address] Ja Dinero CRNP [address] [place] [address] 12/04/2023 1:00 PM EDT Cardiac Studies Cardiology [address] [place] [address] [place], [facility] [address] [place] [address] 05/20/2024 9:00 AM EST Office Visit Cardiology [address] [place] [address] Patrice Cheung PA-C [address] [place] [address] Health Maintenance Due Date Last Done Comments Depression Screening 12/31/2020 01/01/2020 COVID-19 Vaccine ( season) 2023 04/17/2023, 07/05/2021, 07/05/2021, Additional history exists Diabetic Eye Exam 01/11/2024 01/10/2023, , 06/02/2021, Additional history exists HbA1c 02/16/2024 08/16/2023, 01/27, 10/28/2021, Additional history exists Albumin/Creatinine Ratio 02/22/2024 023, 10/28/2021, 01/19/2021, Additional history exists CKD PHOS USE SMARTSET 33048 02/22/202401/27, 06/21/2021, 03/22/2020, Additional history exists Diabetic Foot Exam 02/22/2024 02/21/2023, 0 10/28/2021, 09/21/2020, Additional history exists GFR 05/07/2024 11/06/2023, 07/27, 02/21/2023, Additional history exists B-12 08/15/2024 08/16/2023, 02/0 12/2022, 06/21/2021, Additional history exists TSH 08/15/2024 08/16/2023, 01/27, 07/05/2022, Additional history exists CKD HGB USE SMARTSET 28368 11/05/202411/05, 11/06/2023, 08/16/2023, Additional history exists O2 ASSESSMENT COMPLETED IN PAST YEAR FOR COPD 11/05/2024 11/06/2023 DTaP,Tdap,and Td Vaccines (3 - Td or Tdap) 11/05/2033 11/06/2023, 03/11/2013, 12/27/2007 Pneumococcal Vaccine: 65+ Years Completed 04/16/2015, 12/27/2007, 05/15/2002 Influenza Vaccine (FLU shot) Completed 02/21/2023, 04/07/2022, 02/24/2021, Additional history exists Alpha-1 Antitrypsin Discontinued DXA Scan Discontinued GARDASIL-HPV [...] this encounter Medical Devices Implanted Type Area Store Sales Manager Device Identifier Shelf Expiration Date Model / Serial / Lot Dbx 10cc [id number] - [id number] - [id number] Implanted:Qt y: 1 on 07/14/2021 by Kristian Chappell DO at [place] [facility] [place] 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 FND [id number] 01/28/2023 [id number] / [id number] / [id number] Prox Lat Humerus Plate Implanted:Qt y: 1 on 07/14/2021 by Kristian Chappell DO at OR [facility] [place] Left: Shoulder MALLORY : ORTHOPAEDICS [id number] / / Screw Nlk A3 Ti 3.5x32mm - [id number] Implanted:Qt y: 3 on 07/14/2021 by Kristian Chappell DO at [place] [facility] [place] Left: Shoulder MALLORY : TRAUMA [id number] / / Screw Lk A3 Ti 4x40mm - [id number] Implanted:Qt y: 1 on 07/14/2021 by Kristian Chappell DO at OR [facility] [place] Left: Shoulder MALLORY : TRAUMA [id number] / / Screw Lk A3 Ti 4x55mm - [id number] Implanted:Qt y: 1 on 07/14/2021 by Kristian Chappell DO at OR [facility] [place] Left: Shoulder MALLORY : TRAUMA [id number] / / Screw Lk A3 Ti 4x30mm - [id number] Implanted:Qt y: 1 on 07/14/2021 by Kristian Chappell DO at OR [facility] [place] Left: Shoulder MALLORY : TRAUMA [id number] / / 3.5x55 Locking Screw Implanted:Qt y: 1 on 07/14/2021 by Kristian Chappell DO at OR [facility] [place] Left: Shoulder MALLORY : ORTHOPAEDICS [id number] / / documented as of this encounter Additional Health Concerns Infection Onset Date Last Indicated Resolved Time Gastrointestinal Rule-Out 11/07/2023 11/07/2023 10:00 AM EDT documented as of this encounter Advance Directives * Full Code (Latest Code Status on File) Date Activated Date Inactivated Comments 07/14/2021 2:48 PM 07/15/2021 12:26 AM This order reflects the patients wishes and were consensually agreed upon. Question Answer Comments Discussion of Advance Directives occurred with: Not Discussed Care Teams Fitness Consultant Relationship Specialty Start Date End Date Kaitlin Barry MD [address] [place] [address] [place] [phone] PCP - General Family Medicine 04/22/19 documented as of this encounter
--- OUTSIDE RECORDS SUMMARY | 2023-11-29 11:25 | External Medical Summary ---
Author Name Unknown Address Unknown Organization [id number]:LABORATORY [facility] [place] - [address] [place] [address] Laboratory Report Ordering Provider Test Date Status JACEY OLIVA 11/20/2023 09:08:42 Final Warfarin Therapy
INR: 2 .0-3.0 conventional anticoagulation
INR: 2.5- 3.5 high intensity anticoagulation Observation Date Value Abnormality Reference (Units ) Status PT 11/20/2023 09:08:42 16.5 Above high normal 11 .6-15.2 (seconds) Final INR 11/20/2023 09:08:42 1.3 Above high normal 0. 8-1.2 Final Performing Location LABORATORY [facility] [place] - [address] [place] [address]
--- OUTSIDE RECORDS SUMMARY | 2023-11-29 11:25 | External Medical Summary ---
Author Name Unknown Address Unknown Organization [id number]:LABORATORY [facility] [place] - [address] [place] [address] Laboratory Report Ordering Provider Test Date Status WANDA SHAW 11/20/2023 09:08:42 Final Observation Date Value Abnormality Reference (Units ) Status BUN 11/20/2023 09:08:42 21 Above high normal 6-20 (mg/dL) Final Creatinine 11/20/2023 09:08:42 1.5 Above high normal 0.6-1.2 (mg/dL) Final Glomerular filtration rate/1.73 sq M.predicted [Volume Rate/Area] in Serum, Plasma or Blood by Creatinine-based formula (CKD-EPI) 11/20/2023 09:08:42 45 Below low normal >=60 (mL/min) Final eGFR is calculated based on the CKD-EPI 2020 equation Sodium 11/20/2023 09:08:42 137 135-146 (m mol/L) Final Potassium 11/20/2023 09:08:42 6.2 Above high normal 3. 5-5.1 (mmol/L) Final Cl 11/20/2023 09:08:42 105 98-107 (mm ol/L) Final CO2 11/20/2023 09:08:42 22 22-32 (mmo l/L) Final Anion gap 11/20/2023 09:08:42 10 7-15 (mmol /L) Final Glucose 11/20/2023 09:08:42 93 70-120 (mg /dL) Final Calcium 11/20/2023 09:08:42 7.6 Below low normal 8.4 -10.2 (mg/dL) Final Performing Location LABORATORY [facility] [place] - [address] [place] [address]
--- OUTSIDE RECORDS SUMMARY | 2023-11-29 11:25 | External Medical Summary | Summary of Care ---
Author Name Unknown Organization [facility] Address [address] [place] [address] Phone [phone] Care Team Providers Care Gold Frame Assembler Name Role Phone Kaitlin Barry MD Primary Care Prov ider Reason for Referral * Evaluate & Treat - Unlimited Visits (Within 3 days (urgent)) - Authorized Specialty Diagnoses / Procedures Referred By Contac t Referred To Contact Nephrology Diagnoses STEVENSON (acute kidney injury) (HCC) Kaitlin Barry MD [address] [place] [address] [place] [address] Referral ID Status Reason Start Date Expiration Date Visits Requested Visits Authorized [id number] Authorized Specialty Services Required 11/22/2023 999 999 Question Answer Referral Priority Within 3 days (urgent) Where should this appointment be scheduled? [facility] What condition is this patient being seen for? Acute kidney injury Reason for Visit * Reason Onset Date Comments Appointment 11/22/2023 Nephrology/Renal US Encounter Details Date Type Department Care Team (Late st Contact Info) Description 11/22/2023 Telephone Family Medicine [address] [place] [address] Kaitlin Barry MD [address] [place] [address] [place] [address] Appointment (Nephrology/Renal US ) Allergies Active Allergy Reactions Criticality Noted Date Comments No Known Drug Allergy 02/09/2003 documented as of this encounter (statuses as of 11/26/2023) Medications Medication Sig Dispensed Refills Start Date End Date Status Cyanocobalamin (B-12) 1000 MCG CapsuleIndications:B1 2 deficiency Take 1 Cap by mouth daily. 30 Cap 5 01/14/2016 Active Blood Glucose Monitoring Suppl (bulletn. 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 30 Tablet 07/21/2022 Active VidPayTouch UltraSoft LancetsIndications:Ty pe 2 diabetes mellitus with hemoglobin A1c goal of less than 7.0% ([facility]) USE 1 TO CHECK GLUCOSE UP TO [...] mellitus with stage 3 chronic kidney disease ([facility]) TAKE 1 TABLET BY MOUTH IN THE MORNING 90 Tablet 3 07/11/2023 Active metFORMIN HCl 1000 MG Oral TabletIndications:Ayesha betes mellitus with stage 3 chronic kidney disease ([facility]) Take 1 tablet by mouth twice daily 180 Tablet 1 08/10/2023 Active Metoprolol Succinate ER 100 MG Oral Tablet Extended Release 24 Hour (toPROL XL)Indications:Ischem ic cardiomyopathy,Sustai leslie [place] (ventricular tachycardia) ([facility]),Dyslipidemia, goal LDL below 70,Essential (primary) hypertension,Chronic systolic heart failure ([facility]) TAKE 1 TABLET BY MOUTH IN THE MORNING 90 Tablet 1 08/10/2023 Active Pantoprazole Sodium 40 MG Oral Tablet Delayed Release TAKE 1 TABLET BY MOUTH ONCE DAILY IN THE MORNING AND 1 TABLET ONCE DAILY AT BEDTIME 180 Tablet 1 08/10/2023 Active OneTouch Ultra In Vitro StripIndications:Type 2 diabetes mellitus with hemoglobin A1c goal of less than 7.0% ([facility]) USE 1 STRIP TO CHECK GLUCOSE TWICE DAILY FASTING AND EVENING 200 Strip 1 08/10/2023 Active Furosemide 40 MG Oral Tablet (Lasix)Indications:Ch ronic systolic heart failure (HCC),STEVENSON (acute kidney injury) ([facility]) As needed 10/23/2023 Active Clobetasol Propionate 0.05 [...] 10/26 Chronic obstructive pulmonary disease 10/28/2021 Overview: [place] dust expossure. Former smoker. Had PFTs 2014. 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 He needs to schedule a renal US [...] 11/28/2023 1:30 PM EDT Office Visit Gastroenterology, [facility] [address] [place] [address] Ja Dinero CRNP [address] [place] [address] 12/04/2023 1:00 PM EDT Cardiac Studies Cardiology [address] [place] [address] [place] [address] [place] [address] 12/05/2023 1:40 PM EDT Office Visit Nephrology [address] [place] [address] Ruthie Bravo MD [address] [facility] [place] [address] 05/20/2024 9:00 AM EST Office Visit Cardiology [address] [place] [address] Patrice Cheung PA-C [address] [place] [address] Scheduled Orders Name Type Priority Associated Diagnoses Orde r Schedule RENAL FUNCTION PANEL Lab Routine STEVENSON (acute kidney injury) ([facility]) Expected: 11/22/2023, Expires: 11/21/2024 URINALYSIS, REFLEX TO MICROSCOPIC Lab Routine [place]EN[place] (acute kidney injury) ([facility]) Expected: 11/22/2023, Expires: 11/21/2024 ALBUMIN / CREATININE RATIO, URINE Lab Routine [place] (acute kidney injury) ([facility]) Expected: 11/22/2023, Expires: 11/21/2024 US RENAL Medical Imaging Routine STEVENSON (acute kidney injury) ([facility]) Expected: 11/22/2023, Expires: 12/21/2024 HEPATITIS B SURFACE ANTIGEN Lab Routine [place]EVENSON (acute kidney injury) ([facility]) Expected: 11/22/2023, Expires: 11/21/2024 Scheduled Referrals Name Type Priority Associated Diagnoses Orde r Schedule NEPHROLOGY REFERRAL OP Referral Within 3 days (urgent) STEVEN[place] (acute kidney injury) ([facility]) Ordered: 11/22/2023 Health Maintenance Due Date Last [...] Additional history exists CKD PHOS USE SMARTSET 83527 02/22/202401/27, 06/21/2021, 03/22/2020, Additional history exists Diabetic Foot Exam 02/22/2024 02/21/2023, 0 10/28/2021, 09/21/2020, Additional history exists GFR 05/21/2024 11/20/2023, 10/26, 08/16/2023, Additional history exists B-12 08/15/2024 08/16/2023, 12/2022, 06/21/2021, Additional history exists TSH 08/15/2024 08/16/2023, 01/27, 07/05/2022, Additional history exists O2 ASSESSMENT COMPLETED IN PAST YEAR FOR COPD 11/05/2024 11/06/2023 CKD HGB USE SMARTSET 51444 11/19/202411/19, 11/20/2023, 11/06/2023, Additional history exists DTaP,Tdap,and [...] this encounter Medical Devices Implanted Type Area Sales Marketing Device Identifier Shelf Expiration Date Model / Serial / Lot Dbx 10cc 499045 - [id number] - [id number] Implanted:Qt y: 1 on 07/14/2021 by Kristian Chappell DO at OR [facility] [place] 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 FND [id number] 01/28/2023 [id number] / [id number] / [id number] Prox Lat Humerus Plate Implanted:Qt y: 1 on 07/14/2021 by Kristian Chappell DO at OR [facility] [place] Left: Shoulder MALLORY : ORTHOPAEDICS [id number] / / Screw Nlk A3 Ti 3.5x32mm - [id number] Implanted:Qt y: 3 on 07/14/2021 by rKistian Chappell DO at OR [facility] [place] Left: Shoulder MALLORY : TRAUMA [id number] / / Screw Lk A3 Ti 4x40mm - [id number] Implanted:Qt y: 1 on 07/14/2021 by Kristian Chappell DO at OR [facility] [place] Left: Shoulder MALLORY : TRAUMA [id number] / / Screw Lk A3 Ti 4x55mm - [id number] Implanted:Qt y: 1 on 07/14/2021 by Kristian Chappell DO at OR [facility] [place] Left: Shoulder MALLORY : TRAUMA [id number] / / Screw Lk A3 Ti 4x30mm - [id number] Implanted:Qt y: 1 on 07/14/2021 by Kristian Chappell DO at OR [facility] [place] Left: Shoulder MALLORY : TRAUMA [id number] / / 3.5x55 Locking Screw Implanted:Qt y: 1 on 07/14/2021 by Kristian Chappell DO at OR [facility] [place] Left: Shoulder MALLORY : ORTHOPAEDICS [id number] / / documented as of this encounter [...] Directives occurred with: Not Discussed Care Teams Gold Frame Assembler Relationship Specialty Start Date End Date Kaitlin Barry MD [address] [place] [address] [place] [phone] PCP - General Family Medicine 04/22/19 documented as of this encounter
--- OUTSIDE RECORDS SUMMARY | 2023-11-29 11:25 | External Medical Summary | Summary of Care ---
Author Name Unknown Organization [facility] Address [address] [place] [address] Phone [phone] Care Team Providers Care Front End Ui Developer Name Role Phone Kaitlin Barry MD Primary Care Prov ider Reason for Visit * Reason Onset Date Comments Test Results 11/08/2023 Encounter Details Date Type Department Care Team (Late st Contact Info) Description 11/08/2023 Telephone Family [address] [address] Kaitlin Barry MD [address] [place], [place] [address] [address] Test Results Allergies Active Allergy Reactions Criticality Noted Date Comments No Known Drug Allergy 02/09/2003 documented as of this encounter (statuses as of 11/08/2023) Medications Medication Sig Dispensed Refills Start Date End Date Status Cyanocobalamin (B-12) 1000 MCG CapsuleIndications:B1 2 deficiency Take 1 Cap by mouth daily. 30 Cap 5 01/14/2016 Active Blood Glucose Monitoring Suppl (HighlightCam ULTRA SYSTEM) W/DEVICE KITIndications:Type 2 diabetes mellitus [...] as of this encounter (statuses as of 11/08/2023) Active Problems Problem Noted Date Diagnosed Date Type 2 diabetes mellitus wit h stage 2 chronic kidney disease, without long-term current use of insulin 11/06/2023 NSVT (nonsustained ventricular tachycardia) 10/26 Chronic obstructive pulmonary disease 10/28/2021 Overview: [place] dust expossure. Former smoker. Had PFTs 2014. 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 symp toms documented as of this encounter (statuses as of 11/08/2023) Resolved Problems Problem Noted Date Diagnosed Date [...] as of this encounter (statuses as of 11/08/2023) Immunizations Name Administration Dates Next Due COVID-19 mRNA, LNP-s, No Pre serve, 2-Dose Series ([employer]) 09/06/2020,08/16/2020 COVID-19, LNP-s, No Preserve , Alexander-sucrose, Ages 12+ ([employer]) 07/05/2021 COVID-19, MRNA-LNP, 23-24, P F, 30 MCG/0.3 mL, 12 YRS AND ABOVE, IM ([employer]) 04/17/2023 Influenza, Whole Virus 05/10/2000 Pneumococcal Conjugate [...] encounter Miscellaneous Notes * Telephone Encounter - Gabi Tucker LPN [...] 11/28/2023 1:30 PM EDT Office Visit Gastroenterology, [facility] [address] [place] [address] Ja Dinero CRNP [address] [place] [address] 12/04/2023 1:00 PM EDT Cardiac Studies Cardiology [address] [place] [address] [place] [address] [place] [address] 05/20/2024 9:00 AM EST Office Visit Cardiology [address] [place] [address] Patrice Cheung PA-C [address] [place] [address] Health Maintenance Due Date Last Done Comments Depression Screening 12/31/2020 01/01/2020 COVID-19 Vaccine ( season) 2023 04/17/2023, 07/05/2021, 07/05/2021, Additional history exists Diabetic Eye Exam 01/11/2024 01/10/2023, , 06/02/2021, Additional history exists HbA1c 02/16/2024 08/16/2023, 01/27, 10/28/2021, Additional history exists Albumin/Creatinine Ratio 02/22/2024 023, 10/28/2021, 01/19/2021, Additional history exists CKD PHOS USE SMARTSET 56245 02/22/202401/27, 06/21/2021, 03/22/2020, Additional history exists Diabetic Foot Exam 02/22/2024 02/21/2023, 0 10/28/2021, 09/21/2020, Additional history exists GFR 05/07/2024 11/06/2023, 07/27, 02/21/2023, Additional history exists B-12 08/15/2024 08/16/2023, 02/0 12/2022, 06/21/2021, Additional history exists TSH 08/15/2024 08/16/2023, 01/27, 07/05/2022, Additional history exists CKD HGB USE SMARTSET 86468 11/05/202411/05, 11/06/2023, 08/16/2023, Additional history exists O2 [...] this encounter Medical Devices Implanted Type Area Mailroom Courier Device Identifier Shelf Expiration Date Model / Serial / Lot Dbx 10cc [id number] - [id number] - [id number] Implanted:Qt y: 1 on 07/14/2021 by Kristian Chappell DO at OR [facility] [place] 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 FND [id number] 01/28/2023 [id number] / [id number] / [id number] Prox Lat Humerus Plate Implanted:Qt y: 1 on 07/14/2021 by Kristian Chappell DO at OR [facility] [place] Left: Shoulder MALLORY : ORTHOPAEDICS [id number] / / Screw Nlk A3 Ti 3.5x32mm - [id number] Implanted:Qt y: 3 on 07/14/2021 by Kristian Chappell DO at OR [facility] [place] Left: Shoulder MALLORY : TRAUMA [id number] / / Screw Lk A3 Ti 4x40mm - [id number] Implanted:Qt y: 1 on 07/14/2021 by Kristian Chappell DO at OR [facility] [place] Left: Shoulder MALLORY : TRAUMA [id number] / / Screw Lk A3 Ti 4x55mm - [id number] Implanted:Qt y: 1 on 07/14/2021 by Kristian Chappell DO at OR [facility] [place] Left: Shoulder MALLORY : TRAUMA [id number] / / Screw Lk A3 Ti 4x30mm - [id number] Implanted:Qt y: 1 on 07/14/2021 by Kristian Chappell DO at OR [facility] [place] Left: Shoulder MALLORY : TRAUMA [id number] / / 3.5x55 Locking Screw Implanted:Qt y: 1 on 07/14/2021 by Kristian Chappell DO at OR [facility] [place] Left: Shoulder MALLORY : ORTHOPAEDICS [id number] / / documented as of this encounter [...] Directives occurred with: Not Discussed Care Teams Front End Ui Developer Relationship Specialty Start Date End Date Kaitlin Barry MD [address] [place] [address] [place] [address] PCP - General Family Medicine 04/22/19 documented as of this encounter
--- OUTSIDE RECORDS SUMMARY | 2023-11-29 11:25 | External Medical Summary | Summary of Care ---
Author Name Unknown Organization [facility] Address [address] [place] [address] Phone [phone] Care Team Providers Care Convention Worker Name Role Phone Kaitlin Barry MD Primary Care Prov ider Reason for Visit * Reason Comments Outpatient Testing Encounter Details Date Type Department Care Team (Latest Contact Info) Description 11/20/2023 9:20 AM EDT Laboratory Laboratory [address] [place] [phone] [place], Lab [address] [place] [address] Diarrhea, unspecified type; Abnormal CT scan, gastrointestinal tract; Unexplained weight loss Allergies Active Allergy Reactions Criticality Noted Date Comments No Known Drug Allergy 02/09/2003 documented as of this encounter (statuses as of 11/20/2023) Medications Medication Sig Dispensed Refills Start Date End Date Status Cyanocobalamin (B-12) 1000 MCG CapsuleIndications:B1 2 deficiency Take 1 Cap by mouth daily. 30 Cap 5 01/14/2016 Active Blood Glucose Monitoring Suppl ([employer] [place] ULTRA SYSTEM) W/DEVICE KITIndications:Type 2 diabetes mellitus with hemoglobin A1c goal of less than 7.0% ([facility]) Test once a day DX:E11.9 [...] hemoglobin A1c goal of less than 7.0% (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 30 Tablet 07/21/2022 Active OneTouch UltraSoft LancetsIndications:Ty pe 2 diabetes mellitus with hemoglobin A1c goal of less than 7.0% ([facility]) USE 1 TO CHECK GLUCOSE [...] XL)Indications:Ischem ic cardiomyopathy,Sustai leslie [place] (ventricular tachycardia) ([facility]),Dyslipidemia, goal LDL below 70,Essential (primary) hypertension,Chronic systolic heart failure ([facility]) TAKE 1 TABLET BY MOUTH IN THE MORNING 90 Tablet 1 08/10/2023 Active Pantoprazole Sodium 40 MG Oral Tablet Delayed Release TAKE 1 TABLET BY MOUTH ONCE DAILY IN THE MORNING AND 1 TABLET ONCE DAILY AT BEDTIME 180 Tablet 08/10/2023 Active OneTouch Ultra In Vitro StripIndications:Type 2 diabetes mellitus with hemoglobin A1c goal of less than 7.0% ([facility]) USE 1 STRIP TO CHECK GLUCOSE TWICE DAILY FASTING AND EVENING 200 Strip 08/10/2023 Active Furosemide 40 MG Oral Tablet (Lasix)Indications:Ch ronic systolic heart failure ([facility]),[place]EVEN[place] (acute kidney injury) ([facility]) As needed 10/23/2023 Active Clobetasol Propionate 0.05 % External Ointment (Temovate)Indications :Dermatitis Apply topically to affected area 2 times a day. To affected area on SCALP for up to two weeks. Use pea sized amount. 30 g 2 11/06/2023 Active documented as of this encounter (statuses as of 11/20/2023) Active Problems Problem Noted Date Diagnosed Date Type 2 diabetes mellitus wit h stage 2 chronic kidney disease, without long-term current use of insulin 11/06/2023 NSVT (nonsustained ventricular tachycardia) 10/26 Chronic obstructive pulmonary disease 10/28/2021 Overview: [place] dust expossure. Former smoker. Had PFTs 2014. 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 symp toms documented as of this encounter (statuses as of 11/20/2023) Resolved Problems Problem Noted Date Diagnosed Date [...] as of this encounter (statuses as of 11/20/2023) Immunizations Name Administration Dates Next Due COVID-19 mRNA, LNP-s, No Pre serve, 2-Dose Series ([employer]) 09/06/2020,08/16/2020 COVID-19, LNP-s, No Preserve , Alexander-sucrose, [...] on file documented as of this encounter Plan of Treatment Upcoming Encounters Date Type Department Care Team (Late st Contact Info) Description 11/28/2023 1:30 PM EDT Office Visit Gastroenterology, [facility] [address] [place] [address] Ja Dinero CRNP [address] [place] [address] 12/04/2023 1:00 PM EDT Cardiac Studies Cardiology [address] [place] [address] [facility] [address] [place] [address] 05/20/2024 9:00 AM EST Office Visit Cardiology [address] [place] [address] Patrice Cheung PAApC [address] [place] [address] Pending Results Name Type Priority Associated Diagnoses Date /Time BASIC METABOLIC PANEL Lab Routine Diarrhea, unspecified type 11/20/2023 9:08 AM EDT CBC WITH WBC DIFFERENTIAL Lab Routine Abnormal CT scan, gastrointestinal tract Unexplained weight loss 11/20/2023 9:08 AM EDT PT INR Lab Routine Abnormal CT scan, gastrointestinal tract Unexplained weight loss 11/20/2023 9:08 AM EDT CBC Lab Routine Abnormal CT scan, gastrointestinal tract Unexplained weight loss 11/20/2023 9:08 AM EDT DIFFERENTIAL, AUTOMATED Lab Routine Abnormal CT scan, gastrointestinal tract Unexplained weight loss 11/20/2023 9:08 AM EDT Health Maintenance Due Date Last Done Comments Depression Screening 12/31/2020 01/01/2020 COVID-19 Vaccine ( season) 2023 04/17/2023, 07/05/2021, 07/05/2021, Additional history exists Diabetic Eye Exam 01/11/2024 01/10/2023, , 06/02/2021, Additional history exists HbA1c 02/16/2024 08/16/2023, 01/27, 10/28/2021, Additional history exists Albumin/Creatinine Ratio 02/22/2024 023, 10/28/2021, 01/19/2021, Additional history exists CKD PHOS USE SMARTSET 71292 02/22/202401/27, 06/21/2021, 03/22/2020, Additional history exists Diabetic Foot Exam 02/22/2024 02/21/2023, 0 10/28/2021, 09/21/2020, Additional history exists GFR 05/07/2024 11/06/2023, 07/27, 02/21/2023, Additional history exists B-12 08/15/2024 08/16/2023, 02/0 12/2022, 06/21/2021, Additional history exists TSH 08/15/2024 08/16/2023, 01/27, 07/05/2022, Additional history exists CKD HGB USE SMARTSET 75345 11/05/202411/05, 11/06/2023, 08/16/2023, Additional history exists O2 [...] this encounter Medical Devices Implanted Type Area Airworthiness Inspector Device Identifier Shelf Expiration Date Model / Serial / Lot Dbx 10cc 246569 - [id number] - [id number] Implanted:Qt y: 1 on 07/14/2021 by Kristian Chappell DO [place] [facility] 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 FND [id number] 01/28/2023 [id number] / [id number] / [id number] Prox Lat Humerus Plate Implanted:Qt y: 1 on 07/14/2021 by Kristian Chappell DO [place] [facility] [place] Left: Shoulder MALLORY : ORTHOPAEDICS [id number] / / Screw Nlk A3 Ti 3.5x32mm - [id number] Implanted:Qt y: 3 on 07/14/2021 by Kristian Chappell DO [facility] Left: Shoulder MALLORY : TRAUMA [id number] / / Screw Lk A3 Ti 4x40mm - [id number] Implanted:Qt y: 1 on 07/14/2021 by Kristian Chappell DO [place] [facility] [place] Left: Shoulder MALLORY : TRAUMA [id number] / / Screw Lk A3 Ti 4x55mm - [id number] Implanted:Qt y: 1 on 07/14/2021 by Kristian Chappell DO at [place] [facility] [place] Left: Shoulder MALLORY : TRAUMA [id number] / / Screw Lk A3 Ti 4x30mm - [id number] Implanted:Qt y: 1 on 07/14/2021 by Kristian Chappell DO at [place] [facility] [place] Left: Shoulder MALLORY : TRAUMA [id number] / / 3.5x55 Locking Screw Implanted:Qt y: 1 on 07/14/2021 by Kristian Chappell DO at [place] [facility] [place] Left: Shoulder MALLORY : ORTHOPAEDICS [id number] / / documented as of this encounter Visit Diagnoses Diagnosis Diarrhea, unspecified type Abnormal CT scan, gastrointestinal tract Nonspecific (abnormal) findings on radiological and other examination of gastrointestinal tract Unexplained weight loss Loss of weight documented in this encounter Advance Directives * Full Code (Latest Code Status on File) Date Activated Date Inactivated Comments 07/14/2021 2:48 PM 07/15/2021 12:26 AM This order reflects the patients wishes and were consensually agreed upon. Question Answer Comments Discussion of Advance Directives occurred with: Not Discussed Care Teams Convention Worker Relationship Specialty Start Date End Date Kaitlin Barry MD [address] [place] [address] [place] [address] PCP - General Family Medicine 04/22/19 documented as of this encounter
--- OUTSIDE RECORDS SUMMARY | 2023-11-29 11:25 | External Medical Summary ---
Author Name Unknown Address Unknown Organization K01:[facility] [place] [address] [place] [address] Laboratory Report Ordering Provider Test Date Status JACEY OLIVA 11/20/2023 09:08:42 Final Observation Date Value Abnormality Reference (Units ) Status WBC, Total 11/20/2023 09:08:42 7.49 4.00-10.80 (K/uL) Final RBC 11/20/2023 09:08:42 4.69 4.50-5.25 (M/uL) Final Hemoglobin 11/20/2023 09:08:42 15.1 14.0-16.8 (g/dL) Final HCT 11/20/2023 09:08:42 46.0 40.0-48.4 (%) Final MCV 11/20/2023 09:08:42 98.1 82.0-99.5 (fL) Final MCH 11/20/2023 09:08:42 32.2 27.0-34.0 (pg) Final MCHC 11/20/2023 09:08:42 32.8 32.0-36.0 (g/dL) Final RDW 11/20/2023 09:08:42 14.6 11.5-15.5 (%) Final Platelets 11/20/2023 09:08:42 193 140-400 (K/uL) Final MPV 11/20/2023 09:08:42 10.9 6.6-11.1 (fL) Final Nucleated erythrocytes/100 leukocytes [Ratio] in Blood by Automated count 11/20/2023 09:08:42 0 <=0 (/100 WBCs) Final Performing Location [facility] [place] [address] [place] [address]
--- OUTSIDE RECORDS SUMMARY | 2023-11-29 11:25 | External Medical Summary | Summary of Care ---
Author Name Unknown Organization [facility] Address [address] [place] [address] Phone [phone] Care Team Providers Care Rap Artist Name Role Phone Kaitlin Barry MD Primary Care Prov ider Reason for Visit * Reason Onset Date Comments Outpatient Testing 11/07/2023 Encounter Details Date Type Department Care Team (Late st Contact Info) Description 11/07/2023 Telephone Family [address] [address] Kaitlin Barry MD [address] [place], [place] [address] [address] Outpatient Testing Allergies Active Allergy Reactions Criticality Noted Date Comments No Known Drug Allergy 02/09/2003 documented as of this encounter (statuses as of 11/19/2023) Medications Medication Sig Dispensed Refills Start Date End Date Status Cyanocobalamin (B-12) 1000 MCG CapsuleIndications:B1 2 deficiency Take 1 Cap by mouth daily. 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 30 Tablet 07/21/2022 Active OneTouch UltraSoft LancetsIndications:Ty pe 2 diabetes mellitus with hemoglobin A1c goal of less than 7.0% ([facility]) USE 1 TO CHECK GLUCOSE UP TO [...] XL)Indications:Ischem ic cardiomyopathy,Sustai leslie VT (ventricular tachycardia) ([facility]),Dyslipidemia, goal LDL below 70,Essential (primary) hypertension,Chronic systolic heart failure ([facility]) TAKE 1 TABLET BY MOUTH IN THE MORNING 90 Tablet 1 08/10/2023 Active Pantoprazole Sodium 40 MG Oral Tablet Delayed Release TAKE 1 TABLET BY MOUTH ONCE DAILY IN THE MORNING AND 1 TABLET ONCE DAILY AT BEDTIME 180 Tablet 08/10/2023 Active OneTouch Ultra In Vitro StripIndications:Type 2 diabetes mellitus with hemoglobin A1c goal of less than 7.0% ([facility]) USE 1 STRIP TO CHECK GLUCOSE TWICE DAILY FASTING AND EVENING 200 Strip 08/10/2023 Active Furosemide 40 MG Oral Tablet (Lasix)Indications:Ch ronic systolic heart failure ([facility]),STEVENSON (acute kidney injury) ([facility]) As needed 10/23/2023 Active Clobetasol Propionate 0.05 % External Ointment (Temovate)Indications :Dermatitis Apply topically to affected area 2 times a day. To affected area on SCALP for up to two weeks. Use pea sized amount. 30 g 2 11/06/2023 Active documented as of this encounter (statuses as of 11/19/2023) Active Problems Problem Noted Date Diagnosed Date Type 2 diabetes mellitus wit h stage 2 chronic kidney disease, without long-term current use of insulin 11/06/2023 NSVT (nonsustained ventricular tachycardia) 10/26 Chronic obstructive pulmonary disease 10/28/2021 Overview: [place] dust expossure. Former smoker. Had PFTs 2014. [...] of inactive term GENERAL OSTEOARTHROSIS 05/01/2001 Old [place] (myocardial infarction) BPH without obstruction/lower urinary tract symp toms documented as of this encounter (statuses as of 11/19/2023) Resolved Problems Problem Noted Date Diagnosed Date [...] as of this encounter (statuses as of 11/19/2023) Immunizations Name Administration Dates Next Due COVID-19 mRNA, LNP-s, No Pre serve, 2-Dose Series ([employer]) 09/06/2020,08/16/2020 COVID-19, LNP-s, No Preserve , Alexander-sucrose, Ages 12+ ([employer]) 07/05/2021 COVID-19, MRNA-LNP, 23-24, P F, 30 MCG/0.3 mL, 12 YRS AND ABOVE, IM ([employer]Comirnat) 04/17/2023 Influenza, Whole Virus 05/10/2000 Pneumococcal Conjugate [...] encounter Miscellaneous Notes * Telephone Encounter - Jerri Buchanan OSA - 11/19/2023 8:19 AM EDT Left message Letter sent * Telephone Encounter - Annie Eric OSA - 11/12/2023 8:07 AM EDT Left message on machine for pt to call back to schedule. Annie * Telephone Encounter - Nasrin Cruz OSA - 11/08/2023 11:23 AM EDT Called pt to schedule in [facility] OR at [place]. Pt would prefer to go to [place]. Will forward to them * Telephone Encounter - Ja Dinero CRNP - 11/08/2023 8:58 AM EDT Spoke w the pt by phone. He agrees to EGD/EUS and is aware that we need CBC, INR prior. Schedulers - please reach out to arrange EGD/EUS * Telephone Encounter - aJ Dinero CRNP - 11/08/2023 8:58 AM EDT ----- Message from Kaitlin Nayak MD sent at 11/07/2023 3:41 PM EDT ----- FYI duodenal thickening in setting of diarrhea and weight loss. H/o duodenal ulcer. Has appt with you in 3 weeks. * Telephone Encounter - Kaitlin Barry MD - 11/07/2023 3:39 PM EDT Please let him know the CT scan again shows thickening in the small bowel. It is important he keep his scheduled appt with gastroenterology in November. Last time he had this, he was found to have duodenal ulcer. Please confirm he is taking pantoprazole twice a day? documented in this encounter Plan of Treatment Upcoming Encounters Date Type Department Care Team (Late st Contact Info) Description 11/28/2023 1:30 PM EDT [facility] [place] [address] Ja Dinero CRNP [address] [place] [address] 12/04/2023 1:00 PM EDT Cardiac Studies Cardiology [address] [place] [address] Usha Marmolejo [facility] [address] [place] [address] 05/20/2024 9:00 AM EST Office Visit Cardiology [address] [place] [address] Patrice Cheung PA-C [address] [place] [address] Scheduled Orders Name Type Priority Associated Diagnoses Orde r Schedule CBC WITH WBC DIFFERENTIAL Lab Routine Abnormal CT scan, gastrointestinal tract Unexplained weight loss Expected: 11/08/2023, Expires: 11/07/2024 PT INR Lab Routine Abnormal CT scan, gastrointestinal tract Unexplained weight loss Expected: 11/08/2023, Expires: 11/07/2024 EGD, W/ENDOSCOPIC US Procedures Routine Abnormal CT scan, gastrointestinal tract Unexplained weight loss Ordered: 11/08/2023 Health Maintenance Due Date Last Done Comments Depression Screening 12/31/2020 01/01/2020 COVID-19 Vaccine ( season) 2023 04/17/2023, 07/05/2021, 07/05/2021, Additional history exists Diabetic Eye Exam 01/11/2024 01/10/2023, , 06/02/2021, Additional history exists HbA1c 02/16/2024 08/16/2023, 01/27, 10/28/2021, Additional history exists Albumin/Creatinine Ratio 02/22/2024 023, 10/28/2021, 01/19/2021, Additional history exists CKD PHOS USE SMARTSET 72824 02/22/20242 11/2022, 06/21/2021, 03/22/2020, Additional history exists Diabetic Foot Exam 02/22/2024 02/21/2023, 0 10/28/2021, 09/21/2020, Additional history exists GFR 05/07/2024 11/06/2023, 07/27, 02/21/2023, Additional history exists B-12 08/15/2024 08/16/2023, 12/2022, 06/21/2021, Additional history exists TSH 08/15/2024 08/16/2023, 01/27, 07/05/2022, Additional history exists CKD HGB USE SMARTSET 43773 11/05/202411/05, 11/06/2023, 08/16/2023, Additional history exists O2 [...] this encounter Medical Devices Implanted Type Area Wetland Scientist Device Identifier Shelf Expiration Date Model / Serial / Lot Dbx 10cc [id number] - [id number] - [id number] Implanted:Qt y: 1 on 07/14/2021 by Kristian Chappell DO at [place] [facility] [place] 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 FND [id number] 01/28/2023 [id number] / [id number] / [id number] Prox Lat Humerus Plate Implanted:Qt y: 1 on 07/14/2021 by Kristian Chappell DO at [place] [facility] [place] Left: Shoulder MALLORY : ORTHOPAEDICS [id number] / / Screw Nlk A3 Ti 3.5x32mm - [id number] Implanted:Qt y: 3 on 07/14/2021 by Kristian Chappell DO at [place] [facility] [place] Left: Shoulder MALLORY : TRAUMA [id number] / / Screw Lk A3 Ti 4x40mm - [id number] Implanted:Qt y: 1 on 07/14/2021 by Kristian Chappell DO at OR [facility] [place] Left: Shoulder MALLORY : TRAUMA [id number] / / Screw Lk A3 Ti 4x55mm - [id number] Implanted:Qt y: 1 on 07/14/2021 by Kristian Chappell DO at OR [facility] [place] Left: Shoulder MALLORY : TRAUMA [id number] / / Screw Lk A3 Ti 4x30mm - [id number] Implanted:Qt y: 1 on 07/14/2021 by Kristian Chappell DO at OR [facility] [place] Left: Shoulder MALLORY : TRAUMA [id number] / / 3.5x55 Locking Screw Implanted:Qt y: 1 on 07/14/2021 by Kristian Chappell DO at OR [facility] [place] Left: Shoulder MALLORY : ORTHOPAEDICS [id number] / / documented as of this encounter Visit Diagnoses Diagnosis Abnormal CT scan, gastrointestinal tract- Primary Nonspecific (abnormal) findings on radiological and other examination of gastrointestinal tract Unexplained weight loss Loss of weight documented in this encounter Additional Health Concerns Infection Onset [...] Directives occurred with: Not Discussed Care Teams Rap Artist Relationship Specialty Start Date End Date Kaitlin Barry MD [address] [place] [address] [place] [address] PCP - General Family Medicine 04/22/19 documented as of this encounter
--- OUTSIDE RECORDS SUMMARY | 2023-11-29 11:25 | External Medical Summary | Summary of Care ---
Author Name Unknown Organization [facility] Address [address] [place] [address] Phone [phone] Care Team Providers Care Foundation Drill Operator Name Role Phone Kaitlin Barry MD Primary Care Prov ider Reason for Visit * Reason Onset Date Comments Test Results 11/06/2023 Encounter Details Date Type Department Care Team (Late st Contact Info) Description 11/06/2023 Telephone Family [address] [address] Kaitlin Barry MD [address] [place], [place] [address] [address] Test Results Allergies Active Allergy Reactions Criticality Noted Date Comments No Known Drug Allergy 02/09/2003 documented as of this encounter (statuses as of 11/08/2023) Medications Medication Sig Dispensed Refills Start Date End Date Status Cyanocobalamin (B-12) 1000 MCG CapsuleIndications:B1 2 deficiency Take 1 Cap by mouth daily. 30 Cap 5 01/14/2016 Active Blood Glucose Monitoring Suppl ([employer] ULTRA SYSTEM) W/DEVICE KITIndications:Type 2 diabetes mellitus [...] Oral Tablet (Lasix)Indications:Ch ronic systolic heart failure ([facility]),STEVENSON (acute kidney injury) ([facility]) As needed [...] 10/26 Chronic obstructive pulmonary disease 10/28/2021 Overview: [place] dust expossure. Former smoker. Had PFTs 2014. [...] of inactive term GENERAL OSTEOARTHROSIS 05/01/2001 Old [place] (myocardial infarction) BPH without obstruction/lower urinary tract [...] mRNA, LNP-s, No Pre serve, 2-Dose Series ([employer]) 09/06/2020,08/16/2020 COVID-19, LNP-s, No Preserve , Alexander-sucrose, Ages 12+ ([employer]) 07/05/2021 COVID-19, MRNA-LNP, 23-24, P F, 30 MCG/0.3 mL, 12 YRS AND ABOVE, IM ([employer]-Comirnat) 04/17/2023 Influenza, Whole Virus 05/10/2000 Pneumococcal Conjugate [...] Encounter - Gabi Tucker LPN - 11/08/2023 3:48 PM EDT Patient is aware of Note Below * Telephone Encounter - Kaitlin Barry MD - 11/06/2023 4:23 PM EDT Blood counts are improved, but he appears a bit dehydrated I suspect (decreased kidney function). Please repeat labs in 2 weeks and do NOT fast. Drink fluids before lab draw next time. documented in this encounter Plan of Treatment Upcoming Encounters Date Type Department Care Team (Late st Contact Info) Description 11/28/2023 1:30 PM EDT Office Visit Gastroenterology, [facility] [address] [place] [address] Ja Dinero CRNP [address] [place] [address] 12/04/2023 1:00 PM EDT Cardiac Studies Cardiology [address] [place] [address] [place] [address] [place] [address] 05/20/2024 9:00 AM EST Office Visit Cardiology [address] [place] [address] Patrice Cheung PA-C [address] [place] [address] Scheduled Orders Name Type Priority Associated Diagnoses Orde r Schedule BASIC METABOLIC PANEL Lab Routine Diarrhea, unspecified type Expected: 11/20/2023 (Approximate), Expires: 11/05/2024 Health Maintenance Due Date Last Done Comments Depression Screening 12/31/2020 01/01/2020 COVID-19 Vaccine ( season) 2023 04/17/2023, 07/05/2021, 07/05/2021, Additional history exists Diabetic Eye Exam 01/11/2024 01/10/2023, , 06/02/2021, Additional history exists HbA1c 02/16/2024 08/16/2023, 01/27, 10/28/2021, Additional history exists Albumin/Creatinine Ratio 02/22/2024 023, 10/28/2021, 01/19/2021, Additional history exists CKD PHOS USE SMARTSET 90984 02/22/202401/27, 06/21/2021, 03/22/2020, Additional history exists Diabetic Foot Exam 02/22/2024 02/21/2023, 0 10/28/2021, 09/21/2020, Additional history exists GFR 05/07/2024 11/06/2023, 07/27, 02/21/2023, Additional history exists B-12 08/15/2024 08/16/2023, 02/0 12/2022, 06/21/2021, Additional history exists TSH 08/15/2024 08/16/2023, 01/27, 07/05/2022, Additional history exists CKD HGB USE SMARTSET 62506 11/05/202411/05, 11/06/2023, 08/16/2023, Additional history exists O2 [...] this encounter Medical Devices Implanted Type Area Energy Systems Laboratory Director Device Identifier Shelf Expiration Date Model / Serial / Lot Dbx 10cc 950222 - [id number] - [id number] Implanted:Qt y: 1 on 07/14/2021 by Kristian Chappell DO at [place] [facility] [place] 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 FND [id number] 01/28/2023 [id number] / [id number] / [id number] Prox Lat Humerus Plate Implanted:Qt y: 1 on 07/14/2021 by Kristian Chappell DO at OR [facility] [place] Left: Shoulder MALLORY : ORTHOPAEDICS [id number] / / Screw Nlk A3 Ti 3.5x32mm - [id number] Implanted:Qt y: 3 on 07/14/2021 by Kristian Chappell DO at OR [facility] [place] Left: Shoulder MALLORY : TRAUMA [id number] / / Screw Lk A3 Ti 4x40mm - [id number] Implanted:Qt y: 1 on 07/14/2021 by Kristian Chappell DO at OR [facility] [place] Left: Shoulder MALLORY : TRAUMA [id number] / / Screw Lk A3 Ti 4x55mm - [id number] Implanted:Qt y: 1 on 07/14/2021 by Kristian Chappell DO at OR [facility] [place] Left: Shoulder MALLORY : TRAUMA [id number] / / Screw Lk A3 Ti 4x30mm - [id number] Implanted:Qt y: 1 on 07/14/2021 by Kristian Chappell DO at OR [facility] [place] Left: Shoulder MALLORY : TRAUMA [id number] / / 3.5x55 Locking Screw Implanted:Qt y: 1 on 07/14/2021 by Kristian Chappell DO at OR [facility] Left: Shoulder MALLORY : ORTHOPAEDICS [id number] / / documented as of this encounter Visit Diagnoses Diagnosis Diarrhea, unspecified type- Primary documented in this encounter Additional Health Concerns [...] Directives occurred with: Not Discussed Care Teams Foundation Drill Operator Relationship Specialty Start Date End Date Kaitlin Barry MD [address] [place] [address] [place] [address] PCP - General Family Medicine 04/22/19 documented as of this encounter
--- OUTSIDE RECORDS SUMMARY | 2023-11-29 11:25 | External Medical Summary | Summary of Care ---
Author Name Unknown Organization [facility] Address [address] [place] [address] Phone [phone] Care Team Providers Care Seismology Teacher Name Role Phone Kaitlin Barry MD Primary Care Prov ider Reason for Visit * Reason Onset Date Comments Outpatient Testing 11/07/2023 Encounter Details Date Type Department Care Team (Late st Contact Info) Description 11/07/2023 Telephone Family [address] [address] Kaitlin Barry MD [address] [place], [place] [address] [address] Outpatient Testing Allergies Active Allergy Reactions Criticality Noted Date Comments No Known Drug Allergy 02/09/2003 documented as of this encounter (statuses as of 11/12/2023) Medications Medication Sig Dispensed Refills Start Date End Date Status Cyanocobalamin (B-12) 1000 MCG CapsuleIndications:B1 2 deficiency Take 1 Cap by mouth daily. 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 30 Tablet 07/21/2022 Active OneTouch UltraSoft LancetsIndications:Ty pe 2 diabetes mellitus with hemoglobin A1c goal of less than 7.0% ([facility]) USE 1 TO CHECK GLUCOSE UP TO [...] ic cardiomyopathy,Sustai leslie [place] (ventricular tachycardia) ([facility]),Dyslipidemia, goal LDL below 70,Essential (primary) hypertension,Chronic systolic heart failure ([facility]) TAKE 1 TABLET BY MOUTH IN THE MORNING 90 Tablet 1 08/10/2023 Active Pantoprazole Sodium 40 MG Oral Tablet Delayed Release TAKE 1 TABLET BY MOUTH ONCE DAILY IN THE MORNING AND 1 TABLET ONCE DAILY AT BEDTIME 180 Tablet 08/10/2023 Active OneTouch Ultra In Vitro StripIndications:Type 2 diabetes mellitus with hemoglobin A1c goal of less than 7.0% ([facility]) USE 1 STRIP TO CHECK GLUCOSE TWICE DAILY FASTING AND EVENING 200 Strip 08/10/2023 Active Furosemide 40 MG Oral Tablet (Lasix)Indications:Ch ronic systolic heart failure ([facility]),STEVENSON (acute kidney injury) ([facility]) As needed 10/23/2023 Active Clobetasol Propionate 0.05 % External Ointment (Temovate)Indications :Dermatitis Apply topically to affected area 2 times a day. To affected area on SCALP for up to two weeks. Use pea sized amount. 30 g 2 11/06/2023 Active documented as of this encounter (statuses as of 11/12/2023) Active Problems Problem Noted Date Diagnosed Date Type 2 diabetes mellitus wit h stage 2 chronic kidney disease, without long-term current use of insulin 11/06/2023 NSVT (nonsustained ventricular tachycardia) 10/26 Chronic obstructive pulmonary disease 10/28/2021 Overview: [place] dust expossure. Former smoker. Had PFTs 2014. [...] of inactive term GENERAL OSTEOARTHROSIS 05/01/2001 Old [place] (myocardial infarction) BPH without obstruction/lower urinary tract symp toms documented as of this encounter (statuses as of 11/12/2023) Resolved Problems Problem Noted Date Diagnosed Date [...] as of this encounter (statuses as of 11/12/2023) Immunizations Name Administration Dates Next Due COVID-19 mRNA, LNP-s, No Pre serve, 2-Dose Series ([employer]) 09/06/2020,08/16/2020 COVID-19, LNP-s, No Preserve , Alexander-sucrose, Ages 12+ ([employer]) 07/05/2021 COVID-19, MRNA-LNP, 23-24, P F, 30 MCG/0.3 mL, 12 YRS AND ABOVE, IM ([employer]-Comirnat) 04/17/2023 Influenza, Whole Virus 05/10/2000 Pneumococcal Conjugate [...] encounter Miscellaneous Notes * Telephone Encounter - Annie Eric OSA - 11/12/2023 8:07 AM EDT Left message on machine for pt to call back to schedule. Annie * Telephone Encounter - Nasrin Cruz OSA - 11/08/2023 11:23 AM EDT Called pt to schedule in [facility] OR at [place]. Pt would prefer to go to [place]. Will forward to them * Telephone Encounter - Ja Dinero CRNP - 11/08/2023 8:58 AM EDT Spoke w the pt by phone. He agrees to EGD/EUS and is aware that we need CBC, INR prior. Schedulers - please reach out to arrange EGD/EUS * Telephone Encounter - Ja Dinero CRNP [...] 11/28/2023 1:30 PM EDT Office Visit Gastroenterology, [facility] [address] [address] Ja Dinero CRNP [address] [place] [address] 12/04/2023 1:00 PM EDT Cardiac Studies Cardiology [address] [place] [address] [place] [address] [place] [address] 05/20/2024 9:00 AM EST Office Visit Cardiology [address] [place] [address] Patrice Cheung PA-C [address] [place] [address] Scheduled Orders Name Type Priority Associated Diagnoses [...] Additional history exists CKD PHOS USE SMARTSET 24475 02/22/202401/27, 06/21/2021, 03/22/2020, Additional history exists Diabetic Foot Exam 02/22/2024 02/21/2023, 0 10/28/2021, 09/21/2020, Additional history exists GFR 05/07/2024 11/06/2023, 07/27, 02/21/2023, Additional history exists B-12 08/15/2024 08/16/2023, 02/0 12/2022, 06/21/2021, Additional history exists TSH 08/15/2024 08/16/2023, 01/27, 07/05/2022, Additional history exists CKD HGB USE SMARTSET 30718 11/05/202411/05, 11/06/2023, 08/16/2023, Additional history exists O2 [...] this encounter Medical Devices Implanted Type Area Grave Cleaner Device Identifier Shelf Expiration Date Model / Serial / Lot Dbx 10cc [id number] - [id number] - [id number] Implanted:Qt y: 1 on 07/14/2021 by Kristian Chappell DO at OR [facility] [place] 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 FND [id number] 01/28/2023 [id number] / [id number] / [id number] Prox Lat Humerus Plate Implanted:Qt y: 1 on 07/14/2021 by Kristian Chappell DO at OR [facility] [place] Left: Shoulder MALLORY : ORTHOPAEDICS [id number] / / Screw Nlk A3 Ti 3.5x32mm - [id number] Implanted:Qt y: 3 on 07/14/2021 by Kristian Chappell DO at OR [facility] [place] Left: Shoulder MALLORY : TRAUMA [id number] / / Screw Lk A3 Ti 4x40mm - [id number] Implanted:Qt y: 1 on 07/14/2021 by Kristian Chappell DO at OR [facility] [place] Left: Shoulder MALLORY : TRAUMA [id number] / / Screw Lk A3 Ti 4x55mm - [id number] Implanted:Qt y: 1 on 07/14/2021 by Kristian Chappell DO at OR [facility] [place] Left: Shoulder MALLORY : TRAUMA [id number] / / Screw Lk A3 Ti 4x30mm - [id number] Implanted:Qt y: 1 on 07/14/2021 by Kristian Chappell DO at OR [facility] Left: Shoulder MALLORY : TRAUMA [id number] / / 3.5x55 Locking Screw Implanted:Qt y: 1 on 07/14/2021 by Kristian Chappell DO at OR [facility] Left: Shoulder MALLORY : ORTHOPAEDICS [id number] / / documented as of this encounter [...] Directives occurred with: Not Discussed Care Teams Seismology Teacher Relationship Specialty Start Date End Date Kaitlin Barry MD [address] [place] [address] [place] [address] PCP - General Family Medicine 04/22/19 documented as of this encounter
--- OUTSIDE RECORDS SUMMARY | 2023-11-29 11:25 | External Medical Summary ---
Author Name Unknown Address Unknown Organization K01:LABORATORY [facility] - [address] [facility] [place] [address] Laboratory Report Ordering Provider Test Date Status JACEY OLIVA 11/20/2023 09:08:42 Final Observation Date Value Abnormality Reference (Units ) Status SYNC LEUKOCYTES IN BLOOD BY AUTOMATED COUNT 11/20/2023 09:08:42 7.49 4.00-10.80 (K/uL) Final Segs 11/20/2023 09:08:42 61.4 40.0-75.0 (%) Final Lymphs % 11/20/2023 09:08:42 25.0 18.0-42.0 (%) Final Monos 11/20/2023 09:08:42 11.6 Above high normal 1.0-11.0 (%) Final Eosinophils 11/20/2023 09:08:42 0.3 0.0-6.0 (%) Final Basos 11/20/2023 09:08:42 0.8 0.0-2.0 (%) Final Immature Granulocyte, Percent 11/20/2023 09:08:42 0.9 0.0-2.0 (%) Final Absolute Segs 11/20/2023 09:08:42 4.60 1.80-7.70 (K/uL) Final Lymphs, absolute 11/20/2023 09:08:42 1.87 1.00-4.80 (K/ul) Final Monos, Abs 11/20/2023 09:08:42 0.87 0.00-1.10 (K/uL) Final Eos, Abs 11/20/2023 09:08:42 0.02 0.00-0.70 (K/uL) Final Basos, Abs 11/20/2023 09:08:42 0.06 0.00-0.20 (K/uL) Final Immature Granulocytes, Number 11/20/2023 09:08:42 0.07 0.00-0.20 (K/uL) Final Performing Location LABORATORY [facility] - [address] [facility] [address]
--- OUTSIDE RECORDS SUMMARY | 2023-11-29 11:25 | External Medical Summary | Summary of Care ---
Author Name Unknown Organization [facility] Address [address] [place] [address] Phone [phone] Care Team Providers Care Pattern Checker Name Role Phone Kaitlin Barry MD Primary Care Prov ider Reason for Visit * Reason Onset Date Comments Test Results 11/08/2023 Encounter Details Date Type Department Care Team (Late st Contact Info) Description 11/08/2023 Telephone Family [address] [address] Kaitlin Barry MD [address] [place], [place] [address] [address] Test Results Allergies Active Allergy Reactions Criticality Noted Date Comments No Known Drug Allergy 02/09/2003 documented as of this encounter (statuses as of 11/12/2023) Medications Medication Sig Dispensed Refills Start Date End Date Status Cyanocobalamin (B-12) 1000 MCG CapsuleIndications:B1 2 deficiency Take 1 Cap by mouth daily. 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 30 Tablet 07/21/2022 Active OneTouch UltraSoft LancetsIndications:Ty pe 2 diabetes mellitus with hemoglobin A1c goal of less than 7.0% ([facility]) USE 1 TO CHECK GLUCOSE UP TO [...] XL)Indications:Ischem ic cardiomyopathy,Sustai leslie [place] (ventricular tachycardia) ([facility]),Dyslipidemia, goal LDL below 70,Essential (primary) hypertension,Chronic systolic heart failure ([facility]) TAKE 1 TABLET BY MOUTH IN THE MORNING 90 Tablet 1 08/10/2023 Active Pantoprazole Sodium 40 MG Oral Tablet Delayed Release TAKE 1 TABLET BY MOUTH ONCE DAILY IN THE MORNING AND 1 TABLET ONCE DAILY AT BEDTIME 180 Tablet 08/10/2023 Active OneTouch Ultra In Vitro StripIndications:Type 2 diabetes mellitus with hemoglobin A1c goal of less than 7.0% ([facility]) USE 1 STRIP TO CHECK GLUCOSE TWICE DAILY FASTING AND EVENING 200 Strip 08/10/2023 Active Furosemide 40 MG Oral Tablet (Lasix)Indications:Ch ronic systolic heart failure ([facility]),STEVENSON (acute kidney injury) ([facility]) As needed 10/23/2023 Active Clobetasol Propionate 0.05 [...] 10/26 Chronic obstructive pulmonary disease 10/28/2021 Overview: [place] dust expossure. Former smoker. Had PFTs 2014. 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 * Telephone Encounter - Kaitlin Barry MD [...] 11/28/2023 1:30 PM EDT Office Visit Gastroenterology, [facility] [address] [place] [address] Ja Dinero CRNP [address] [place] [address] 12/04/2023 1:00 PM EDT Cardiac Studies Cardiology [address] [place] [address] [facility] [address] [place] [address] 05/20/2024 9:00 AM EST Office Visit Cardiology [address] [place] [address] Patrice Cheung PA-C [address] [place] [address] Health Maintenance Due Date Last Done Comments Depression Screening 12/31/2020 01/01/2020 COVID-19 Vaccine ( season) 2023 04/17/2023, 07/05/2021, 07/05/2021, Additional history exists Diabetic Eye Exam 01/11/2024 01/10/2023, , 06/02/2021, Additional history exists HbA1c 02/16/2024 08/16/2023, 01/27, 10/28/2021, Additional history exists Albumin/Creatinine Ratio 02/22/2024 023, 10/28/2021, 01/19/2021, Additional history exists CKD PHOS USE SMARTSET 39402 02/22/202401/27, 06/21/2021, 03/22/2020, Additional history exists Diabetic Foot Exam 02/22/2024 02/21/2023, 0 10/28/2021, 09/21/2020, Additional history exists GFR 05/07/2024 11/06/2023, 07/27, 02/21/2023, Additional history exists B-12 08/15/2024 08/16/2023, 02/0 12/2022, 06/21/2021, Additional history exists TSH 08/15/2024 08/16/2023, 01/27, 07/05/2022, Additional history exists CKD HGB USE SMARTSET 03064 11/05/202411/05, 11/06/2023, 08/16/2023, Additional history exists O2 [...] this encounter Medical Devices Implanted Type Area Sawyer Cork Slabs Device Identifier Shelf Expiration Date Model / Serial / Lot Dbx 10cc [id number] - [id number] - [id number] Implanted:Qt y: 1 on 07/14/2021 by Kristian Chappell DO at OR [facility] 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 FND [id number] 01/28/2023 [id number] / [id number] / [id number] Prox Lat Humerus Plate Implanted:Qt y: 1 on 07/14/2021 by Kristian Chappell DO at OR [facility] Left: Shoulder MALLORY : ORTHOPAEDICS [id number] / / Screw Nlk A3 Ti 3.5x32mm - [id number] Implanted:Qt y: 3 on 07/14/2021 by Kristian Chappell DO at OR [facility] Left: Shoulder MALLORY : TRAUMA [id number] / / Screw Lk A3 Ti 4x40mm - [id number] Implanted:Qt y: 1 on 07/14/2021 by Kristian Chappell DO at OR [facility] Left: Shoulder MALLORY : TRAUMA [id number] / / Screw Lk A3 Ti 4x55mm - [id number] Implanted:Qt y: 1 on 07/14/2021 by Kristian Chappell DO at OR [facility] Left: Shoulder MALLORY : TRAUMA [id number] / / Screw Lk A3 Ti 4x30mm - [id number] Implanted:Qt y: 1 on 07/14/2021 by Kristian Chappell DO at OR [facility] Left: Shoulder MALLORY : TRAUMA [id number] / / 3.5x55 Locking Screw Implanted:Qt y: 1 on 07/14/2021 by Kristian Chappell DO at OR [facility] Left: Shoulder MALLORY : ORTHOPAEDICS [id number] / / documented as of this encounter [...] Directives occurred with: Not Discussed Care Teams Pattern Checker Relationship Specialty Start Date End Date Kaitlin Barry MD [address] [place] [address] [place] [phone] PCP - General Family Medicine 04/22/19 documented as of this encounter
--- OUTSIDE RECORDS SUMMARY | 2023-11-29 11:26 | External Medical Summary | Summary of Care ---
Author Name Unknown Organization [facility] Address [address] [place] [address] Phone [phone] Care Team Providers Care Trade Recruiter Name Role Phone Kaitlin Barry MD Primary Care Prov ider Reason for Visit * Reason Onset Date Comments Appointment 11/06/2023 URGENT APPT- GAS TROENTEROLOGY Encounter Details Date Type Department Care Team (Late st Contact Info) Description 11/06/2023 Telephone Family Medicine [address] [address] Kaitlin Barry MD [address] [place] [address] [place] [address] Appointment (URGENT APPT- GASTROENTEROLOGY) Allergies Active Allergy Reactions Criticality Noted Date Comments No Known Drug Allergy 02/09/2003 documented as of this encounter (statuses as of 11/06/2023) Medications Medication Sig Dispensed Refills Start Date End Date Status Cyanocobalamin (B-12) 1000 MCG CapsuleIndications:B1 2 deficiency Take 1 Cap by mouth daily. 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 30 Tablet 07/21/2022 Active OneTouch UltraSoft LancetsIndications:Ty pe 2 diabetes mellitus with hemoglobin A1c goal of less than 7.0% ([facility]) USE 1 TO CHECK GLUCOSE UP [...] XL)Indications:Ischem ic cardiomyopathy,Sustai leslie VT (ventricular tachycardia) ([facility]),Dyslipidemia, goal LDL below 70,Essential (primary) hypertension,Chronic systolic heart failure (HCC) TAKE 1 TABLET BY MOUTH IN THE MORNING 90 Tablet 1 08/10/2023 Active Pantoprazole Sodium 40 MG Oral Tablet Delayed Release TAKE 1 TABLET BY MOUTH ONCE DAILY IN THE MORNING AND 1 TABLET ONCE DAILY AT BEDTIME 180 Tablet 1 08/10/2023 Active OneTouch Ultra In Vitro StripIndications:Type 2 diabetes mellitus with hemoglobin A1c goal of less than 7.0% ([facility]) USE 1 STRIP TO CHECK GLUCOSE TWICE DAILY FASTING AND EVENING 200 Strip 08/10/2023 Active Furosemide 40 MG Oral Tablet (Lasix)Indications:Ch ronic systolic heart failure ([facility]),STEVENSON (acute kidney injury) ([facility]) As needed 10/23/2023 Active Clobetasol Propionate 0.05 % External Ointment (Temovate)Indications :Dermatitis Apply topically to affected area 2 times a day. To affected area on SCALP for up to two weeks. Use pea sized amount. 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 Former smoker. Had PFTs 2014. 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 symp toms documented as of this encounter (statuses as of 11/06/2023) Resolved Problems Problem Noted Date Diagnosed Date Resolved Date Hypertensive heart and kidne y disease with chronic systolic congestive heart failure and stage 2 chronic kidney disease 02/21/2023 3 Type 2 diabetes mellitus wit h stage [...] as of this encounter (statuses as of 11/06/2023) Immunizations Name Administration Dates Next Due COVID-19 mRNA, LNP-s, No Pre serve, 2-Dose Series ([employer]) 09/06/2020,08/16/2020 COVID-19, LNP-s, No Preserve , Alexander-sucrose, Ages 12+ ([employer]) 07/05/2021 COVID-19, MRNA-LNP, 23-24, P F, 30 [...] encounter Miscellaneous Notes * Telephone Encounter - Briseida Gaitan OSA - 11/06/2023 1:28 PM EDT Message was left for pt from order. * Telephone Encounter - Arturo Carpenter OSA - 11/06/2023 9:22 AM EDT Please contact pt and assist in scheduling. Nothing avail for an Urgent appt. Thank you. documented in this encounter Plan of Treatment Upcoming Encounters Date Type Department Care Team (Late st Contact Info) Description 11/07/2023 12:30 PM EDT Imaging Radiology [facility] [address] [place] [address] 12/04/2023 1:00 PM EDT Cardiac Studies Cardiology [address] [place] [address] [facility] [address] [place] [address] 05/20/2024 9:00 AM EST Office Visit Cardiology [address] [place] [address] Patrice Cheung PA-C [address] [place] [address] Health Maintenance Due Date Last Done Comments Depression Screening 12/31/2020 01/01/2020 COVID-19 Vaccine ( season) 2023 04/17/2023, 07/05/2021, 07/05/2021, Additional history exists Diabetic Eye Exam 01/11/2024 01/10/2023, , 06/02/2021, Additional history exists GFR 02/16/2024 08/16/2023, 01/27, 07/05/2022, Additional history exists HbA1c 02/16/2024 08/16/2023, 01/27, 10/28/2021, Additional history exists Albumin/Creatinine Ratio 02/22/2024 023, 10/28/2021, 01/19/2021, Additional history exists CKD PHOS USE SMARTSET 13104 02/22/202401/27, 06/21/2021, 03/22/2020, Additional history exists Diabetic Foot Exam 02/22/2024 02/21/2023, 0 10/28/2021, 09/21/2020, Additional history exists B-12 08/15/2024 08/16/2023, 02/0 12/2022, 06/21/2021, Additional history exists CKD HGB USE SMARTSET 63947 08/15/202408/15, 07/05/2022, 09/28/2021, Additional history exists TSH 08/15/2024 08/16/2023, 01/27, [...] this encounter Medical Devices Implanted Type Area Resident Services Director Device Identifier Shelf Expiration Date Model / Serial / Lot Dbx 10cc [id number] - [id number] - [id number] Implanted:Qt y: 1 on 07/14/2021 by Kristian Chappell DO at [place] [facility] 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 FND [id number] 01/28/2023 [id number] / [id number] / [id number] Prox Lat Humerus Plate Implanted:Qt y: 1 on 07/14/2021 by Kristian Chappell DO at OR [facility] Left: Shoulder MALLORY : ORTHOPAEDICS [id number] / / Screw Nlk A3 Ti 3.5x32mm - [id number] Implanted:Qt y: 3 on 07/14/2021 by Kristian Chappell DO at OR [facility] Left: Shoulder MALLORY : TRAUMA [id number] / / Screw Lk A3 Ti 4x40mm - [id number] Implanted:Qt y: 1 on 07/14/2021 by Kristian Chappell DO at OR [facility] Left: Shoulder MALLORY : TRAUMA [id number] / / Screw Lk A3 Ti 4x55mm - [id number] Implanted:Qt y: 1 on 07/14/2021 by Kristian Chappell DO at OR [facility] Left: Shoulder MALLORY : TRAUMA [id number] / / Screw Lk A3 Ti 4x30mm - [id number] Implanted:Qt y: 1 on 07/14/2021 by Kristian Chappell DO at OR [facility] Left: Shoulder MALLORY : TRAUMA [id number] / / 3.5x55 Locking Screw Implanted:Qt y: 1 on 07/14/2021 by Kristian Chappell DO at OR [facility] Left: Shoulder MALLORY : ORTHOPAEDICS [id number] / / documented as of this encounter Advance Directives * Full Code (Latest Code Status on File) Date Activated Date Inactivated Comments 07/14/2021 2:48 PM 07/15/2021 12:26 AM This order reflects the patients wishes and were consensually agreed upon. Question Answer Comments Discussion of Advance Directives occurred with: Not Discussed Care Teams Trade Recruiter Relationship Specialty Start Date End Date Kaitlin Barry MD [address] [place] [address] [place] [address] PCP - General Family Medicine 04/22/19 documented as of this encounter
--- OUTSIDE RECORDS SUMMARY | 2023-11-29 11:26 | External Medical Summary | Summary of Care ---
Author Name Unknown Organization [facility] Address [address] [facility] [place] [address] Phone [phone] Care Team Providers Care Chemistry Lecturer Name Role Phone Kaitlin Barry MD Primary Care Prov ider Reason for Visit * Reason Comments Outpatient Testing Encounter Details Date Type Department Care Team (Late st Contact Info) Description 11/07/2023 10:30 AM EDT Laboratory Laboratory [address] [place] [address] , Specimen Drop Off [address] [place] [address] Diarrhea, unspecified type Allergies Active Allergy Reactions Criticality Noted Date Comments No Known Drug Allergy 02/09/2003 documented as of this encounter (statuses as of 11/07/2023) Medications Medication Sig Dispensed Refills Start Date End Date Status Cyanocobalamin (B-12) 1000 MCG CapsuleIndications:B1 2 deficiency Take 1 Cap by mouth daily. 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 30 Tablet 07/21/2022 Active OneTouch UltraSoft LancetsIndications:Ty pe 2 diabetes mellitus with hemoglobin A1c goal of less than 7.0% ([facility]) USE 1 TO CHECK GLUCOSE UP [...] XL)Indications:Ischem ic cardiomyopathy,Sustai leslie [place] (ventricular tachycardia) ([facility]),Dyslipidemia, goal LDL below 70,Essential (primary) hypertension,Chronic systolic heart failure ([facility]) TAKE 1 TABLET BY MOUTH IN THE MORNING 90 Tablet 1 08/10/2023 Active Pantoprazole Sodium 40 MG Oral Tablet Delayed Release TAKE 1 TABLET BY MOUTH ONCE DAILY IN THE MORNING AND 1 TABLET ONCE DAILY AT BEDTIME 180 Tablet 08/10/2023 Active OneTouch Ultra In Vitro StripIndications:Type 2 diabetes mellitus with hemoglobin A1c goal of less than 7.0% ([facility]) USE 1 STRIP TO CHECK GLUCOSE TWICE DAILY FASTING AND EVENING 200 Strip 1 08/10/2023 Active Furosemide 40 MG Oral Tablet (Lasix)Indications:Ch ronic systolic heart failure ([facility]),STEVENSON (acute kidney injury) ([facility]) As needed 10/23/2023 Active Clobetasol Propionate 0.05 % External Ointment (Temovate)Indications :Dermatitis Apply topically to affected area 2 times a day. To affected area on SCALP for up to two weeks. Use pea sized amount. 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 Former smoker. Had PFTs 2014. 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 symp toms documented as of this encounter (statuses as of 11/07/2023) Resolved Problems Problem Noted Date Diagnosed Date [...] as of this encounter (statuses as of 11/07/2023) Immunizations Name Administration Dates Next Due COVID-19 mRNA, LNP-s, No Pre serve, 2-Dose Series ([employer]) 09/06/2020,08/16/2020 COVID-19, LNP-s, No Preserve , Alexander-sucrose, Ages 12+ ([employer]) 07/05/2021 COVID-19, MRNA-LNP, 23-24, P F, 30 MCG/0.3 mL, 12 YRS AND ABOVE, IM ([employer]) 04/17/2023 Pneumococcal Conjugate Vacc, 13 Valent (Prevnar) [...] Description 11/07/2023 12:30 PM EDT Imaging Radiology [address] [place] [address] 11/28/2023 1:30 PM EDT Office Visit Gastroenterology, [facility] [address] [place] [address] Ja Dinero CRNP [address] [place] [address] 12/04/2023 1:00 PM EDT Cardiac Studies Cardiology [address] [place] [address] [place] [address] [facility] [place] [address] 05/20/2024 9:00 AM EST Office Visit Cardiology [address] [place] [address] Patrice Cheung PA-C [address] [place] [address] Pending Results Name Type Priority Associated Diagnoses Date /Time GASTROINTESTINAL PATHOGEN PANEL, STOOL Lab Routine Diarrhea, unspecified type 11/07/2023 10:27 AM EDT GASTROINTESTINAL PATHOGEN PANEL PCR Lab Routine Diarrhea, unspecified type 11/07/2023 10:27 AM EDT GASTROINTESTINAL PATHOGEN PANEL CULTURE Lab Routine Diarrhea, unspecified type 11/07/2023 10:27 AM EDT Health Maintenance Due Date Last Done Comments Depression Screening 12/31/2020 01/01/2020 COVID-19 Vaccine ( season) 2023 04/17/2023, 07/05/2021, 07/05/2021, Additional history exists Diabetic Eye Exam 01/11/2024 01/10/2023, , 06/02/2021, Additional history exists HbA1c 02/16/2024 08/16/2023, 01/27, 10/28/2021, Additional history exists Albumin/Creatinine Ratio 02/22/2024 023, 10/28/2021, 01/19/2021, Additional history exists CKD PHOS USE SMARTSET 69097 02/22/202401/27, 06/21/2021, 03/22/2020, Additional history exists Diabetic Foot Exam 02/22/2024 02/21/2023, 0 10/28/2021, 09/21/2020, Additional history exists GFR 05/07/2024 11/06/2023, 07/27, 02/21/2023, Additional history exists B-12 08/15/2024 08/16/2023, 02/0 12/2022, 06/21/2021, Additional history exists TSH 08/15/2024 08/16/2023, 01/27, 07/05/2022, Additional history exists CKD HGB USE SMARTSET 46967 11/05/202411/05, 11/06/2023, 08/16/2023, Additional history exists O2 [...] this encounter Medical Devices Implanted Type Area Pediatric Genetic Counselor Device Identifier Shelf Expiration Date Model / Serial / Lot Dbx 10cc [id number] - [id number] - [id number] Implanted:Qt y: 1 on 07/14/2021 by Kristian Chappell DO at OR [facility] 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 FND [id number] 01/28/2023 [id number] / [id number] / [id number] Prox Lat Humerus Plate Implanted:Qt y: 1 on 07/14/2021 by Kristian Chappell DO at OR [facility] Left: Shoulder MALLORY : ORTHOPAEDICS [id number] / / Screw Nlk A3 Ti 3.5x32mm - [id number] Implanted:Qt y: 3 on 07/14/2021 by Kristian Chappell DO [facility] Left: Shoulder MALLORY : TRAUMA [id number] / / Screw Lk A3 Ti 4x40mm - [id number] Implanted:Qt y: 1 on 07/14/2021 by Kristian Chappell DO at OR [facility] Left: Shoulder MALLORY : TRAUMA [id number] / / Screw Lk A3 Ti 4x55mm - [id number] Implanted:Qt y: 1 on 07/14/2021 by Kristian Chappell DO at OR [facility] Left: Shoulder MALLORY : TRAUMA [id number] / / Screw Lk A3 Ti 4x30mm - [id number] Implanted:Qt y: 1 on 07/14/2021 by Kristian Chappell DO at OR [facility] Left: Shoulder MALLORY : TRAUMA [id number] / / 3.5x55 Locking Screw Implanted:Qt y: 1 on 07/14/2021 by Kristian Chappell DO at OR [facility] Left: Shoulder MALLORY : ORTHOPAEDICS [id number] / / documented as of this encounter Visit Diagnoses Diagnosis Diarrhea, unspecified type documented in this encounter Additional Health Concerns Infection Onset Date Last Indicated Resolved Time Gastrointestinal Rule-Out 11/07/2023 11/07/2023 documented as of this encounter Advance Directives * Full Code (Latest Code Status on File) Date Activated Date Inactivated Comments 07/14/2021 2:48 PM 07/15/2021 12:26 AM This order reflects the patients wishes and were consensually agreed upon. Question Answer Comments Discussion of Advance Directives occurred with: Not Discussed Care Teams Chemistry Lecturer Relationship Specialty Start Date End Date Kaitlin Barry MD [address] [place] [address] [place] [address] PCP - General Family Medicine 04/22/19 documented as of this encounter
--- OUTSIDE RECORDS SUMMARY | 2023-11-29 11:26 | External Medical Summary | Summary of Care ---
Author Name Unknown Organization [facility] Address [address] [place] [address] Phone [phone] Care Team Providers Care Audio/Visual Operator Name Role Phone Kaitlin Barry MD Primary Care Prov ider Reason for Visit * Reason Onset Date Comments Test Results 11/07/2023 Unexpected or In determinate Result Encounter Details Date Type Department Care Team (Late st Contact Info) Description 11/07/2023 Telephone Family Medicine [address] [phone] Kaitlin Barry MD [address] [place] [id number] Test Results (Unexpected or Indeterminate ... Allergies Active Allergy Reactions Criticality Noted Date Comments No Known Drug Allergy 02/09/2003 documented as of this encounter (statuses as of 11/07/2023) Medications Medication Sig Dispensed Refills Start Date End Date Status Cyanocobalamin (B-12) 1000 MCG CapsuleIndications:B1 2 deficiency Take 1 Cap by mouth daily. 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 30 Tablet 07/21/2022 Active OneTouch UltraSoft LancetsIndications:Ty pe 2 diabetes mellitus with hemoglobin A1c goal of less than 7.0% ([facility]) USE 1 TO CHECK GLUCOSE [...] XL)Indications:Ischem ic cardiomyopathy,Sustai leslie VT (ventricular tachycardia) ([facility]),Dyslipidemia, goal LDL below 70,Essential (primary) hypertension,Chronic systolic heart failure ([facility]) TAKE 1 TABLET BY MOUTH IN THE MORNING 90 Tablet 1 08/10/2023 Active Pantoprazole Sodium 40 MG Oral Tablet Delayed Release TAKE 1 TABLET BY MOUTH ONCE DAILY IN THE MORNING AND 1 TABLET ONCE DAILY AT BEDTIME 180 Tablet 1 08/10/2023 Active Intersection [employer] Action Ultra In Vitro StripIndications:Type 2 diabetes mellitus with hemoglobin A1c goal of less than 7.0% ([facility]) USE 1 STRIP TO CHECK GLUCOSE TWICE DAILY FASTING AND EVENING 200 Strip 1 08/10/2023 Active Furosemide 40 MG Oral Tablet (Lasix)Indications:Ch ronic systolic heart failure ([facility]),STEVENSON (acute kidney injury) ([facility]) As needed 10/23/2023 Active Clobetasol Propionate 0.05 % External Ointment (Temovate)Indications :Dermatitis Apply topically to affected area 2 times a day. To affected area on SCALP for up to two weeks. Use pea sized amount. 30 g 2 11/06/2023 Active Hospital, Clinic, or Other Facility Administered Medication Ordered Dose Route Frequency Start Date End Date Status sodium chloride 0.9 % flush/inj 10 mL 10 mL IV PUSH ONCE 11/07/2023 11/08/2023 Active documented as of this encounter (statuses as of 11/07/2023) Active Problems Problem Noted Date Diagnosed Date Type 2 diabetes mellitus wit h stage 2 chronic kidney disease, without long-term current use of insulin 11/06/2023 NSVT (nonsustained ventricular tachycardia) 10/26 Chronic obstructive pulmonary disease 10/28/2021 Overview: [place] dust expossure. Former smoker. Had PFTs 2014. 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 [...] mRNA, LNP-s, No Pre serve, 2-Dose Series ([employer]) 09/06/2020,08/16/2020 COVID-19, LNP-s, No Preserve , Alexander-sucrose, Ages 12+ ([employer]) 07/05/2021 COVID-19, MRNA-LNP, 23-24, P F, 30 MCG/0.3 mL, 12 YRS AND ABOVE, IM (Alexis Bittar-Comirnaty) 04/17/2023 Influenza, Whole Virus 05/10/2000 Pneumococcal Conjugate [...] Encounter - Kaitlin Barry MD - 11/07/2023 3:38 PM EDT Noted * Telephone Encounter - Lucia Reeder OSA - 11/07/2023 3:25 PM EDT Hello- The radiologist discovered an unexpected or indeterminate finding on Juan Tavera ([id number]) and asks that you review the following report. Study Type:CT ABD/PELVIS W IV AND W ORAL CONTRAST Date of Study: 11/07/2023 IMPRESSION: Redemonstration of diffuse wall thickening of the duodenum with patulous appearance of the 3rd portion, slightly progressed from 2021. Focal area of thickening/narrowing at the junction of the duodenum and jejunum is again noted. No evidence of bowel obstruction. Findings may be inflammatory in etiology, however an underlying lesion cannot be excluded. Recommend gastroenterology consultation. Please respond to this encounter to acknowledge receipt of this message and take responsibility to ensure this report is reviewed. Thank you, SHANITA Tena Client Service Rep [facility] Medicine [place] documented in this encounter Plan of Treatment Upcoming Encounters Date Type Department Care Team (Late st Contact Info) Description 11/28/2023 1:30 PM EDT Office Visit Gastroenterology, [facility] [address] [place] [address] Ja Dinero CRNP [address] [place] [address] 12/04/2023 1:00 PM EDT Cardiac Studies Cardiology [address] [place] [address] [place], [facility] [address] [place] [address] 05/20/2024 9:00 AM EST Office Visit Cardiology [address] [place] [address] Patrice Cheung PA-C [address] [place] [address] Health Maintenance Due Date Last Done Comments Depression Screening 12/31/2020 01/01/2020 COVID-19 Vaccine ( season) 2023 04/17/2023, 07/05/2021, 07/05/2021, Additional history exists Diabetic Eye Exam 01/11/2024 01/10/2023, , 06/02/2021, Additional history exists HbA1c 02/16/2024 08/16/2023, 01/27, 10/28/2021, Additional history exists Albumin/Creatinine Ratio 02/22/2024 023, 10/28/2021, 01/19/2021, Additional history exists CKD PHOS USE SMARTSET 68383 02/22/202401/27, 06/21/2021, 03/22/2020, Additional history exists Diabetic Foot Exam 02/22/2024 02/21/2023, 0 10/28/2021, 09/21/2020, Additional history exists GFR 05/07/2024 11/06/2023, 07/27, 02/21/2023, Additional history exists B-12 08/15/2024 08/16/2023, 02/0 12/2022, 06/21/2021, Additional history exists TSH 08/15/2024 08/16/2023, 01/27, 07/05/2022, Additional history exists CKD HGB USE SMARTSET 95591 11/05/202411/05, 11/06/2023, 08/16/2023, Additional history exists O2 [...] this encounter Medical Devices Implanted Type Area Head Packager Device Identifier Shelf Expiration Date Model / Serial / Lot Dbx 10cc 034571 - [id number] - [id number] Implanted:Qt y: 1 on 07/14/2021 by Kristian Chappell DO at OR [facility] [place] 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 FND [id number] 01/28/2023 [id number] / [id number] / [id number] Prox Lat Humerus Plate Implanted:Qt y: 1 on 07/14/2021 by Kristian Chappell DO at OR [facility] [place] Left: Shoulder MALLORY : ORTHOPAEDICS [id number] / / Screw Nlk A3 Ti 3.5x32mm - [id number] Implanted:Qt y: 3 on 07/14/2021 by Kristian Chappell DO at OR [facility] [place] Left: Shoulder MALLORY : [employer]UMA [id number] / / Screw Lk A3 Ti 4x40mm - [id number] Implanted:Qt y: 1 on 07/14/2021 by Kristian Chappell DO at OR [facility] [place] Left: Shoulder MALLORY : TRAUMA [id number] / / Screw Lk A3 Ti 4x55mm - [id number] Implanted:Qt y: 1 on 07/14/2021 by Kristian Chappell DO at OR [facility] [place] Left: Shoulder MALLORY : TRAUMA [id number] / / Screw Lk A3 Ti 4x30mm - [id number] Implanted:Qt y: 1 on 07/14/2021 by Kristian Chappell DO at OR [facility] [place] Left: Shoulder MALLORY : TRAUMA [id number] / / 3.5x55 Locking Screw Implanted:Qt y: 1 on 07/14/2021 by Kristian Chappell DO at OR [facility] [place] Left: Shoulder MALLORY : ORTHOPAEDICS [id number] / / documented as of this encounter [...] Directives occurred with: Not Discussed Care Teams Audio/Visual Operator Relationship Specialty Start Date End Date Kaitlin Barry MD [address] [place] [address] [place] [address] PCP - General Family Medicine 04/22/19 documented as of this encounter
--- OUTSIDE RECORDS SUMMARY | 2023-11-29 11:26 | External Medical Summary ---
Author Name Unknown Address Unknown Organization [id number]:[facility]ORY [facility] [place] - [address] [place] [address] Laboratory Report Ordering Provider Test Date Status WANDA SHAW 11/06/2023 09:05:53 Final Observation Date Value Abnormality Reference (Units ) Status BUN 11/06/2023 09:05:53 23 Above high normal 6-20 (mg/dL) Final Creatinine 11/06/2023 09:05:53 1.4 Above high normal 0.6-1.2 (mg/dL) Final Glomerular filtration rate/1.73 sq M.predicted [Volume Rate/Area] in Serum, Plasma or Blood by Creatinine-based formula (CKD-EPI) 11/06/2023 09:05:53 52 Below low normal >=60 (mL/min) Final eGFR is calculated based on the CKD-EPI 2020 equation Sodium 11/06/2023 09:05:53 138 135-146 (m mol/L) Final Potassium 11/06/2023 09:05:53 5.4 Above high normal 3. 5-5.1 (mmol/L) Final Cl 11/06/2023 09:05:53 106 98-107 (mm ol/L) Final CO2 11/06/2023 09:05:53 24 22-32 (mmo l/L) Final Anion gap 11/06/2023 09:05:53 8 7-15 (mmol /L) Final Glucose 11/06/2023 09:05:53 86 70-120 (mg /dL) Final Albumin 11/06/2023 09:05:53 2.8 Below low normal 3.8 -5.0 (g/dL) Final AST (Aspartate aminotransferase) 11/06/2023 09:05:53 23 10-50 (U/L) Fin al Result may be falsely elevat ed due to hemolysis. Alk Phos 11/06/2023 09:05:53 106 35-130 (U/ L) Final Bilirubin, Total 11/06/2023 09:05:53 0.3 <=1 .2 (mg/dL) Final Calcium 11/06/2023 09:05:53 8.3 Below low normal 8.4 -10.2 (mg/dL) Final Protein 11/06/2023 09:05:53 5.7 Below low normal 6.0 -8.3 (g/dL) Final ALT (Alanine aminotransferase) 11/06/2023 09:05:53 21 10-50 (U/L) Kevan gilliland Performing Location [facility]ORY [facility] - [address] [facility] [address]
--- OUTSIDE RECORDS SUMMARY | 2023-11-29 11:26 | External Medical Summary ---
Author Name Unknown Address Unknown Organization [id number]:[facility] [place] [address] [place] [address] Laboratory Report Ordering Provider Test Date Status WANDA SHAW 11/07/2023 10:27:05 Prelimin ananya Observation Date Value Abnormality Reference (Units) Status Bacteria identified in Specimen by Culture 11/07/2023 10:27:05 No Aeromonas species or Plesiomonas species isolated. Preliminary Test: Gastrointestinal Patho gen Panel Culture
Specimen Source: Stool
Specimen Type: Stool
Specimen Date: 11/07/2023 1027
Result Date: 11/09/2023 1056
Result Status: Preliminary result
Resulting Lab: [facility] [place]
[address]
[place] [address]

CULTURE

No Aeromonas species or Plesiomonas species isolated.

null Performing Location LAB[facility]ORY [facility] [place] - [address] [place] [address]
--- OUTSIDE RECORDS SUMMARY | 2023-11-29 11:26 | External Medical Summary ---
Author Name Unknown Address Unknown Organization [id number]:[facility]ATORY [facility] [place] - [facility] [address] [facility] [place] [address] Laboratory Report Ordering Provider Test Date Status WANDA SHAW 11/07/2023 10:27:05 Final Observation Date Value Abnormality Reference (Units ) Status Campylobacter sp DNA.diarrheagenic [Presence] in Stool by FIDELIA with probe detection 11/07/2023 10:27:05 Negative Negative Final Salmonella sp rpoD gene [Presence] in Stool by FIDELIA with probe detection 11/07/2023 10:27:05 Negative Negative Final Shigella species+EIEC invasion plasmid antigen H ipaH gene [Presence] in Stool by FIDELIA with probe detection 11/07/2023 10:27:05 Negative Negative Final Vibrio sp DNA [Identifier] in Specimen by FIDELIA with probe detection 11/07/2023 10:27:05 Negative Negative Final Yersinia enterocolitica recN gene [Presence] in Stool by FIDELIA with probe detection 11/07/2023 10:27:05 Negative Negative Final Escherichia coli Stx1 toxin stx1 gene [Presence] in Stool by FIDELIA with probe detection 11/07/2023 10:27:05 Negative Negative Final Escherichia coli Stx2 toxin stx2 gene [Presence] in Stool by FIDELIA with probe detection 11/07/2023 10:27:05 Negative Negative Final Norovirus genogroups I and II RNA panel - Stool by FIDELIA with probe detection 11/07/2023 10:27:05 Negative Negative Final Rotavirus A RNA [Presence] in Stool by FIDELIA with probe detection 11/07/2023 10:27:05 Negative Negative Final Performing Location LABORATORY [facility] [place] - [facility] [address] [facility] [place] [address]
--- OUTSIDE RECORDS SUMMARY | 2023-11-29 11:26 | External Medical Summary ---
Author Name Unknown Address Unknown Organization K01[place] [place] [address] [place] [address] Laboratory Report Ordering Provider Test Date Status WANDA SHAW 11/07/2023 10:27:05 Final Observation Date Value Abnormality Reference (Units) Status Bacteria identified in Specimen by Culture 11/07/2023 10:27:05 No Aeromonas species or Plesiomonas species isolated. Final Test: Gastrointestinal Patho gen Panel Culture
Specimen Source: Stool
Specimen Type: Stool
Specimen Date: 11/07/2023 1027
Result Date: 11/10/2023 0958
Result Status: Final result
Resulting Lab: [facility] [place]
[address]
[place] [address]

CULTURE

No Aeromonas species or Plesiomonas species isolated.

null Performing Location [facility] [place] [address] [place] [address]
--- OUTSIDE RECORDS SUMMARY | 2023-11-29 11:26 | External Medical Summary | Summary of Care ---
Author Name Unknown Organization [facility] Address [address] [place] [address] Phone [phone] Care Team Providers Care Autistic Teacher Name Role Phone Kaitlin Barry MD Primary Care Prov ider Reason for Visit * Reason Comments Outpatient Testing Encounter Details Date Type Department Care Team (Late st Contact Info) Description 11/06/2023 9:40 AM EDT Laboratory Laboratory [address] [place] [phone] [place], Lab [address] [place] [address] Diarrhea, unspecified type; Unexplained weight loss Allergies Active Allergy Reactions Criticality Noted Date Comments No Known Drug Allergy 02/09/2003 documented as of this encounter (statuses as of 11/06/2023) Medications Medication Sig Dispensed Refills Start Date End Date Status Cyanocobalamin (B-12) 1000 MCG CapsuleIndications:B1 2 deficiency Take 1 Cap by mouth daily. 30 Cap 5 01/14/2016 Active Blood Glucose Monitoring Suppl ([employer] ULTRA SYSTEM) W/DEVICE KITIndications:Type 2 diabetes mellitus with hemoglobin A1c goal of less than 7.0% ([facility]) Test once a day DX:E11.9 1 [...] hemoglobin A1c goal of less than 7.0% (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 30 Tablet 07/21/2022 Active OneTouch UltraSoft LancetsIndications:Ty pe 2 diabetes mellitus with hemoglobin A1c goal of less than 7.0% ([facility]) USE 1 TO CHECK GLUCOSE UP [...] XL)Indications:Ischem ic cardiomyopathy,Sustai leslie VT (ventricular tachycardia) ([facility]),Dyslipidemia, goal LDL below 70,Essential (primary) hypertension,Chronic systolic heart failure ([facility]) TAKE 1 TABLET BY MOUTH IN THE MORNING 90 Tablet 1 08/10/2023 Active Pantoprazole Sodium 40 MG Oral Tablet Delayed Release TAKE 1 TABLET BY MOUTH ONCE DAILY IN THE MORNING AND 1 TABLET ONCE DAILY AT BEDTIME 180 Tablet 08/10/2023 Active OneTouch Ultra In Vitro StripIndications:Type 2 diabetes mellitus with hemoglobin A1c goal of less than 7.0% ([facility]) USE 1 STRIP TO CHECK GLUCOSE TWICE DAILY FASTING AND EVENING 200 Strip 08/10/2023 Active Furosemide 40 MG Oral Tablet (Lasix)Indications:Ch ronic systolic heart failure ([facility]),STEVENSON (acute kidney injury) ([facility]) As needed 10/23/2023 Active Clobetasol Propionate [...] 10/26 Chronic obstructive pulmonary disease 10/28/2021 Overview: [place] dust expossure. Former smoker. Had PFTs 2014. 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 [...] mRNA, LNP-s, No Pre serve, 2-Dose Series ([employer]) 09/06/2020,08/16/2020 COVID-19, LNP-s, No Preserve , Alexander-sucrose, Ages 12+ ([employer]) 07/05/2021 COVID-19, MRNA-LNP, 23-24, P F, 30 MCG/0.3 mL, 12 YRS AND ABOVE, IM (Soneter-Comirnat) 04/17/2023 Pneumococcal Conjugate Vacc, 13 Valent (Prevnar) [...] Team (Late st Contact Info) Description 11/06/2023 12:15 PM EDT Imaging Radiology [address] [facility] [place] [address] 12/04/2023 1:00 PM EDT Cardiac Studies Cardiology [address] [place] [address] [facility] [address] [facility] [place] [address] 05/20/2024 9:00 AM EST Office Visit Cardiology [address] [place] [address] Patrice Cheung PA-C [address] [place] [address] Pending Results Name Type Priority Associated Diagnoses Date /Time CBC WITH WBC DIFFERENTIAL AND ANEMIA REFLEX WORKUP Lab Routine Diarrhea, unspecified type Unexplained weight loss 11/06/2023 9:05 AM EDT COMPREHENSIVE METABOLIC PANEL Lab Routine Diarrhea, unspecified type Unexplained weight loss 11/06/2023 9:05 AM EDT ANEMIA CBC Lab Routine Diarrhea, unspecified type Unexplained weight loss 11/06/2023 9:05 AM EDT DIFFERENTIAL, AUTOMATED Lab Routine Diarrhea, unspecified type Unexplained weight loss 11/06/2023 9:05 AM EDT ANEMIA REFLEX CHEMISTRY HOLD Lab Routine Diarrhea, unspecified type Unexplained weight loss 11/06/2023 9:05 AM EDT Health Maintenance Due Date Last Done Comments Depression Screening 12/31/2020 01/01/2020 COVID-19 Vaccine ( season) 2023 04/17/2023, 07/05/2021, 07/05/2021, Additional history exists Diabetic Eye Exam 01/11/2024 01/10/2023, , 06/02/2021, Additional history exists GFR 02/16/2024 08/16/2023, 01/27, 07/05/2022, Additional history exists HbA1c 02/16/2024 08/16/2023, 01/27, 10/28/2021, Additional history exists Albumin/Creatinine Ratio 02/22/2024 023, 10/28/2021, 01/19/2021, Additional history exists CKD PHOS USE SMARTSET 36693 02/22/202401/27, 06/21/2021, 03/22/2020, Additional history exists Diabetic Foot Exam 02/22/2024 02/21/2023, 0 10/28/2021, 09/21/2020, Additional history exists B-12 08/15/2024 08/16/2023, 02/0 12/2022, 06/21/2021, Additional history exists CKD HGB USE SMARTSET 83291 08/15/202408/15, 07/05/2022, 09/28/2021, Additional history exists TSH [...] this encounter Medical Devices Implanted Type Area Wool Hat Hydraulicker Device Identifier Shelf Expiration Date Model / Serial / Lot Dbx 10cc [id number] - [id number] - [id number] Implanted:Qt y: 1 on 07/14/2021 [place] Kristian [place] [facility] 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 FND [id number] 01/28/2023 [id number] / [id number] / [id number] Prox Lat Humerus Plate Implanted:Qt y: 1 on 07/14/2021 by Kristian Chappell DO [place] [facility] [place]: Shoulder MALLORY : ORTHOPAEDICS [id number] / / Screw Nlk A3 Ti 3.5x32mm - [id number] Implanted:Qt y: 3 on 07/14/2021 by Kristian [place] [facility] [place] Shoulder MALLORY : [employer] [id number] / / Screw Lk A3 Ti 4x40mm - [id number] Implanted:Qt y: 1 on 07/14/2021 by Kristian Chappell DO [place] [facility] [place]: Shoulder MALLORY : [employer]UMA [id number] / / Screw Lk A3 Ti 4x55mm - [id number] Implanted:Qt y: 1 on 07/14/2021 by Kristian Chappell DO [place] [facility] [place] Shoulder MALLOYR : TRAUMA [id number] / / Screw Lk A3 Ti 4x30mm - [id number] Implanted:Qt y: 1 on 07/14/2021 by Kristian Chappell DO [place] [facility] [place] Shoulder MALLORY : [employer]UMA [id number] / / 3.5x55 Locking Screw Implanted:Qt y: 1 on 07/14/2021 by Kristian Chappell DO [place] [facility] [place]: Shoulder MALLORY : ORTHOPAEDICS [id number] / / documented as of this encounter Visit Diagnoses Diagnosis Diarrhea, unspecified type Unexplained weight loss Loss of weight documented in this encounter Advance Directives * Full Code (Latest Code Status on File) Date Activated Date Inactivated Comments 07/14/2021 2:48 PM 07/15/2021 12:26 AM This order reflects the patients wishes and were consensually agreed upon. Question Answer Comments Discussion of Advance Directives occurred with: Not Discussed Care Teams Autistic Teacher Relationship Specialty Start Date End Date Kaitlin Barry MD [address] [place] [address] [place] [address] PCP - General Family Medicine 04/22/19 documented as of this encounter
--- OUTSIDE RECORDS SUMMARY | 2023-11-29 11:26 | External Medical Summary | Summary of Care ---
Author Name Unknown Organization [facility] Address [address] [place] [address] Phone [phone] Care Team Providers Care Mosaic Layer Name Role Phone Kaitlin Barry MD Primary Care Prov ider Reason for Referral * Precert (Within 24 hrs (call dept; emergent)) - Pending Review Specialty Diagnoses / Procedures Referred By Contac t Referred To Contact Radiology Diagnoses Diarrhea, unspecified type Unexplained weight loss Procedures CT ABD/PELVIS W IV AND W ORAL CONTRAST Kaitlin Barry MD [address] [place] [address] [place] [id number] Referral ID Status Reason Start Date Expiration Date V isits Requested Visits Authorized [id number] Pending Review 11/06/2023 999 999 * Evaluate & Treat - Unlimited Visits (Within 3 days (urgent)) - Authorized Specialty Diagnoses / Procedures Referred By Contac t Referred To Contact Gastroenterology Diagnoses Diarrhea, unspecified type Unexplained weight loss Kaitlin Barry MD [address] [place] [address] [place] [id number] Referral ID Status Reason Start Date Expiration Date Visits Requested Visits Authorized [id number] Authorized Specialty Services Required 11/06/2023 999 999 Question Answer Referral Priority Within 3 days (urgent) Where should this appointment be scheduled? [facility] For what condition is the patient being referred? All Gastro Conditions Comments Weight loss, h/o duodenal ulcer, microcytic anemia, declines colonoscopy Reason for Visit * Reason Comments Re-Check Encounter Details Date Type Department Care Team (Late st Contact Info) Description 11/06/2023 9:00 AM EDT Office Visit Family Medicine [address] [place] [phone] Kaitlin Barry MD [address] [place] [address] [place] [phone] Diarrhea, unspecified type*; Unexplained weight loss; Chronic obstructive pulmonary disease, unspecified COPD type ([facility]); Type 2 diabetes mellitus with stage 2 chronic kidney disease, without long-term current use of insulin ([facility]); Acquired hypothyroidism; NSVT (nonsustained ventricular tachycardia) ([facility]); Dermatitis; Type 2 diabetes mellitus with hemoglobin A1c goal of less than 7.0% ([facility]); History of duodenal ulcer Allergies Active Allergy Reactions Criticality Noted Date Comments No Known Drug Allergy 02/09/2003 documented as of this encounter (statuses as of 11/06/2023) Medications Medication Sig Dispensed Refills Start Date End Date Status Cyanocobalamin (B-12) 1000 MCG CapsuleIndications:B1 2 deficiency Take 1 Cap by mouth daily. 30 Cap 5 01/14/2016 Active Blood Glucose Monitoring Suppl (Architizer ULTRA SYSTEM) W/DEVICE KITIndications:Type 2 diabetes mellitus [...] unspecified whether stage 3a or 3b CKD ([facility]) Take 1 Tablet by mouth in the [...] XL)Indications:Ischem ic cardiomyopathy,Sustai leslie VT (ventricular tachycardia) (HCC),Dyslipidemia, goal LDL below 70,Essential (primary) hypertension,Chronic systolic [...] 10/26 Chronic obstructive pulmonary disease 10/28/2021 Overview: [place] dust expossure. Former smoker. Had PFTs 2014. [...] mRNA, LNP-s, No Pre serve, 2-Dose Series ([employer]Hacker) 09/06/2020,08/16/2020 COVID-19, LNP-s, No Preserve , Alexander-sucrose, [...] on file documented as of this encounter Last Filed Vital Signs Vital Sign Reading Time Taken Comments Blood Pressure 118/78 11/06/2023 8:24 AM EDT Pulse 84 11/06/2023 8:24 AM EDT Temperature 36 C (96.8 F) 11/06/2023 8:24 AM EDT Respiratory Rate 16 11/06/2023 8:24 AM EDT Oxygen Saturation 96% 11/06/2023 8:24 AM EDT Inhaled Oxygen Concentration - - Weight 76.2 kg (168 lb) 11/06/2023 8:24 AM EDT Height 177.8 cm (5' 10") 11/06/2023 8:24 AM EDT Body Mass Index 24.11 11/06/2023 8:24 AM EDT documented in this encounter Progress Notes * Dixon Nayak, Kaitlin Newell MD - 11/06/2023 8:36 AM EDT Subjective Juan Tavera is a 83 year old male. Chief Complaint Patient presents with Re-Check HPI: Here today for routine chronic disease management and preventive care. GI. Diarrhea. Macrocytic anemia. Due for colonoscopy. Watery diarrhea x 8 days.; denies cramping, denies blood. Diarrhea is black/ brown water. No mucus or red blood. Has lost about 20 pounds in last6 months. Seborrhea dermatitis. Using ketoconazole shampoo. Sore patch on right side of scalp; on and off x 2years. Thyroid. On levothyrox 112mcg. Lipids/ Angina/ CHF. PRN nitro. Taking lipitor 40mg. Isosorbide 30. Metoprolol 100mg, lasix 40, aspirin 81. LDL 30. BMP wnl. COPD. Using PRN albuterol. DM2. Diet controlled. A1C 5.7. GERD. Taking protonix 40mg daily. Anemia. On iron 28mg daily. Mild microcytic anemia. 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 Type 2 diabetes mellitus with hemoglobin A1c goal of less than 7.0% ([facility]) DYSLIPIDEMIA, GOAL LDL BELOW 70 History of colon polyps Chronic systolic heart failure ([facility]) Diabetes mellitus with stage 3 chronic kidney disease ([facility]) Essential (primary) hypertension LV (left ventricular) mural thrombus Ischemic cardiomyopathy Hypothyroidism, unspecified Chronic obstructive pulmonary disease ([facility]) 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 30 Cap 5 Blood Glucose Monitoring Suppl (Architizer ULTRA SYSTEM) W/DEVICE KIT Test once a day DX:E11.9 1 Kit 0 nitroglycerin (NITROSTAT) 0.4 MG SUBL one tab under tongue as needed for chest pain maximum 3 doses25 Tab 5 Iron 28 MG Oral Tablet Take 1 Tablet by mouth in the morning. Aspirin 81 MG Oral Tablet Chewable Take 1 Tablet by mouth in the morning. 30 Tablet 0 OneTouch UltraSoft Lancets USE 1 TO CHECK GLUCOSE UP TO 4 TIMES DAILY DIRECTED E11.9 400 Each 3 Ventolin HFA 108 (90 Base) MCG/ACT Inhalation Aerosol Solution Inhale 2 Puffs by mouth every 4 hours as needed for Cough, Shortness of Breath or Wheezing. 18 g 1 Hydrocortisone 2.5 % External Cream Apply a small amount to rectal area twice daily for up to 14 days. 20 g 0 Ketoconazole 2 % External Shampoo Apply topically to affected area every 3 days. Shampoo twice a week for 4 weeks. 120 mL 1 Levothyroxine Sodium 112 MCG Oral Tablet TAKE 1 TABLET BY MOUTH ONCE DAILY FIRST THING IN THE MORNING AT LEAST 30 MINUTES PRIOR TO BREAKFAST OR OTHER MEDS 90 Tablet 3 Isosorbide Mononitrate ER 30 MG Oral Tablet Extended Release 24 Hour (Imdur) TAKE 1 TABLET BY MOUTHONCE DAILY IN THE MORNING 90 Tablet 3 Atorvastatin Calcium 40 MG Oral Tablet (Lipitor) TAKE 1 TABLET BY MOUTH IN THE MORNING 90 Tablet 3 metFORMIN HCl 1000 MG Oral Tablet Take 1 tablet by mouth twice daily 180 Tablet 1 Metoprolol Succinate ER 100 MG Oral Tablet Extended Release 24 Hour (toPROL XL) TAKE 1 TABLET BY MOUTH IN THE MORNING 90 Tablet 1 Pantoprazole Sodium 40 MG Oral Tablet Delayed Release TAKE 1 TABLET BY MOUTH ONCE DAILY IN THE MORNING AND 1 TABLET ONCE DAILY AT BEDTIME 180 Tablet 1 OneTouch Ultra In Vitro Strip USE 1 STRIP TO CHECK GLUCOSE TWICE DAILY FASTING AND EVENING 200 Strip 1 Furosemide 40 MG Oral Tablet (Lasix) As needed Clobetasol Propionate 0.05 % External Ointment (Temovate) Apply topically to affected area 2 times a day. To affected area on SCALP for up to two weeks. Use pea sized amount. 30 g 2 No current facility-administered medications for this visit. Review of patient's allergies indicates: Allergen Reactions No Known Drug Allergy Objective BP 118/78 | Pulse 84 | Temp 36 C (96.8 F) | Resp 16 | Ht 1.778 m (5' 10") | Wt 76.2 kg (168 lb)| SpO2 96% | BMI 24.11 kg/m | BSA 1.94 m Physical Exam Constitutional: Appearance: Normal appearance. Cardiovascular: Rate and Rhythm: Normal rate. Heart sounds: Normal heart sounds. Pulmonary: Effort: Pulmonary effort is normal. Breath sounds: Normal breath sounds. Abdominal: General: Abdomen is flat. Bowel sounds are normal. There is no distension. Palpations: Abdomen is soft. There is no mass. Tenderness: There is no abdominal tenderness. Neurological: Mental Status: He is alert. ASSESSMENT/PLAN: Diarrhea, unspecified type (Primary) - GASTROINTESTINAL PATHOGEN PANEL, STOOL; Future; Expected date: 11/06/2023 - ADULT GASTROENTEROLOGY REFERRAL OP - CT ABD/PELVIS W IV AND W ORAL CONTRAST - CBC WITH WBC DIFFERENTIAL AND ANEMIA REFLEX WORKUP; Future; Expected date: 11/06/2023 - COMPREHENSIVE METABOLIC PANEL; Future; Expected date: 11/06/2023 Unexplained weight loss - ADULT GASTROENTEROLOGY REFERRAL OP - CT ABD/PELVIS W IV AND W ORAL CONTRAST - CBC WITH WBC DIFFERENTIAL AND ANEMIA REFLEX WORKUP; Future; Expected date: 11/06/2023 - COMPREHENSIVE METABOLIC PANEL; Future; Expected date: 11/06/2023 Chronic obstructive pulmonary disease, unspecified COPD type (HCC) Type 2 diabetes mellitus with stage 2 chronic kidney disease, without long-term current use of insulin ([facility]) Acquired hypothyroidism NSVT (nonsustained ventricular tachycardia) ([facility]) Dermatitis - Clobetasol Propionate 0.05 % External Ointment (Temovate); Apply topically to affected area 2 times a day. To affected area on SCALP for up to two weeks. Use pea sized amount. Type 2 diabetes mellitus with hemoglobin A1c goal of less than 7.0% ([facility]) History of duodenal ulcer Follow Up: Return in about 3 months (around 02/06/2024) for Return with Physician, Clinic Visit. | For: Return with Physician, Clinic Visit New onset dark diarrhea with h/o unexplained weight loss and no abd pain concerning for occult malignancy. DDX includes ulcer, diverticulosis, infectious colitis, other. He declines colonoscopy but agrees to labs and CTAP, as well as GI consult as above. Follow up closely. 45 mins spent with patient > 50% counselling and coordinating care. Kaitlin Price MD documented in this encounter Nursing Notes * Marilu Gracia RN - 11/06/2023 8:26 AM EDT Check up. Pt has been having diarrhea x 8 days, feels fine otherwise The shampoo he uses for his scalp is not working as well as it used to(using ketoconazole 2%) documented in this encounter Plan of Treatment Upcoming Encounters Date Type Department Care Team (Latest Contact Info) Description 11/06/2023 9:40 AM EDT Laboratory Laboratory [address] [place] [phone] [place] [id number] Diarrhea, unspecified type; Unexplained weight loss 11/06/2023 12:15 PM EDT Imaging Radiology [address] [place] [address] 12/04/2023 1:00 PM EDT Cardiac Studies Cardiology [address] [place] [address] [place] [address] [place] [address] 05/20/2024 9:00 AM EST Office Visit Cardiology [address] [place] [address] Patrice Cheung PA-C [address] [place] [id number] Pending Results Name Type Priority Associated Diagnoses Date /Time CBC WITH WBC DIFFERENTIAL AND ANEMIA REFLEX WORKUP Lab Routine Diarrhea, unspecified type Unexplained weight loss 11/06/2023 9:05 AM EDT COMPREHENSIVE METABOLIC PANEL Lab Routine Diarrhea, unspecified type Unexplained weight loss 11/06/2023 9:05 AM EDT Scheduled Orders Name Type Priority Associated Diagnoses Order Schedule GASTROINTESTINAL PATHOGEN PANEL, STOOL Lab Routine Diarrhea, unspecified type Expected: 11/06/2023 (Approximate), Expires: 11/05/2024 CT ABD/PELVIS W IV AND W ORAL CONTRAST Medical Imaging STAT Diarrhea, unspecified type Unexplained weight loss Ordered: 11/06/2023 CBC WITH WBC DIFFERENTIAL AND ANEMIA REFLEX WORKUP Lab Routine Diarrhea, unspecified type Unexplained weight loss Expected: 11/06/2023 (Approximate), Expires: 11/05/2024 COMPREHENSIVE METABOLIC PANEL Lab Routine Diarrhea, unspecified type Unexplained weight loss Expected: 11/06/2023 (Approximate), Expires: 11/05/2024 Scheduled Referrals Name Type Priority Associated Diagnoses Order Schedule ADULT GASTROENTEROLOGY REFERRAL OP Referral Within 3 days (urgent) Diarrhea, unspecified type Unexplained weight loss Ordered: 11/06/2023 Health Maintenance Due Date Last Done Comments Depression Screening 12/31/2020 01/01/2020 COVID-19 Vaccine ( season) 2023 04/17/2023, 07/05/2021, 07/05/2021, Additional history exists Diabetic Eye Exam 01/11/2024 01/10/2023, , 06/02/2021, Additional history exists GFR 02/16/2024 08/16/2023, 01/27, 07/05/2022, Additional history exists HbA1c 02/16/2024 08/16/2023, 01/27, 10/28/2021, Additional history exists Albumin/Creatinine Ratio 02/22/2024 023, 10/28/2021, 01/19/2021, Additional history exists CKD PHOS USE SMARTSET 32839 02/22/202401/27, 06/21/2021, 03/22/2020, Additional history exists Diabetic Foot Exam 02/22/2024 02/21/2023, 0 10/28/2021, 09/21/2020, Additional history exists B-12 08/15/2024 08/16/2023, 02/0 12/2022, 06/21/2021, Additional history exists CKD HGB USE SMARTSET 54281 08/15/202408/15, 07/05/2022, 09/28/2021, Additional history exists TSH [...] this encounter Medical Devices Implanted Type Area Compliance Engineer Device Identifier Shelf Expiration Date Model / Serial / Lot Dbx 10cc [id number] - [id number] - [id number] Implanted:Qt y: 1 on 07/14/2021 by Kristian Chappell DO [place] [facility] 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 FND [id number] 01/28/2023 [id number] / [id number] / [id number] Prox Lat Humerus Plate Implanted:Qt y: 1 on 07/14/2021 by Kristian Chappell DO [place] [facility] Left: Shoulder MALLORY : ORTHOPAEDICS [id number] / / Screw Nlk A3 Ti 3.5x32mm - [id number] Implanted:Qt y: 3 on 07/14/2021 by Kristian Chappell DO [place] [facility] [place]: Shoulder MALLORY : TRAUMA [id number] / / Screw Lk A3 Ti 4x40mm - [id number] Implanted:Qt y: 1 on 07/14/2021 by Kristian Chappell DO at [place] [facility] [place]: Shoulder MALLORY : TRAUMA [id number] / / Screw Lk A3 Ti 4x55mm - [id number] Implanted:Qt y: 1 on 07/14/2021 by Kristian Chappell DO [place] [facility] [place]: Shoulder MALLORY : TRAUMA [id number] / / Screw Lk A3 Ti 4x30mm - [id number] Implanted:Qt y: 1 on 07/14/2021 by Kristian Chappell DO at [place] [facility] [place]: Shoulder MALLORY : TRAUMA [id number] / / 3.5x55 Locking Screw Implanted:Qt y: 1 on 07/14/2021 by Kristian Chappell DO at [place] [facility]: Shoulder MALLORY : ORTHOPAEDICS [id number] / / documented as of this encounter Visit Diagnoses Diagnosis Diarrhea, unspecified type- Primary Unexplained weight loss Loss of weight Chronic obstructive pulmonary disease, unspecified COPD type (HCC) Type 2 diabetes mellitus with stage 2 chronic kidney disease, without long-term current use of insulin (HCC) Acquired hypothyroidism Unspecified hypothyroidism NSVT (nonsustained ventricular tachycardia) (HCC) Paroxysmal ventricular tachycardia Dermatitis Contact dermatitis and other eczema, due to unspecified cause Type 2 diabetes mellitus with hemoglobin A1c goal of less than 7.0% (HCC) History of duodenal ulcer Personal history of other diseases of digestive system Diarrhea, unspecified type Unexplained weight loss Loss of weight documented in this encounter Advance Directives * Full Code (Latest Code Status on File) Date Activated Date Inactivated Comments 07/14/2021 2:48 PM 07/15/2021 12:26 AM This order reflects the patients wishes and were consensually agreed upon. Question Answer Comments Discussion of Advance Directives occurred with: Not Discussed Care Teams Mosaic Layer Relationship Specialty Start Date End Date Kaitlin Barry MD [address] [place] [address] [place] [id number] PCP - General Family Medicine 04/22/19 documented as of this encounter
--- OUTSIDE RECORDS SUMMARY | 2023-11-29 11:26 | External Medical Summary ---
Author Name Unknown Address Unknown Organization [id number]:LAB[facility]ATORY [facility] [place] - [address] [facility] [place] [place] [id number] Laboratory Report Ordering Provider Test Date Status WANDA SHAW 11/06/2023 09:05:53 Final Observation Date Value Abnormality Reference (Units ) Status SYNC LEUKOCYTES IN BLOOD BY AUTOMATED COUNT 11/06/2023 09:05:53 7.58 4.00-10.80 (K/uL) Final Segs 11/06/2023 09:05:53 62.6 40.0-75.0 (%) Final Lymphs % 11/06/2023 09:05:53 21.9 18.0-42.0 (%) Final Monos 11/06/2023 09:05:53 13.5 Above high normal 1.0-11.0 (%) Final Eosinophils 11/06/2023 09:05:53 0.4 0.0-6.0 (%) Final Basos 11/06/2023 09:05:53 0.7 0.0-2.0 (%) Final Immature Granulocyte, Percent 11/06/2023 09:05:53 0.9 0.0-2.0 (%) Final Absolute Segs 11/06/2023 09:05:53 4.75 1.80-7.70 (K/uL) Final Lymphs, absolute 11/06/2023 09:05:53 1.66 1.00-4.80 (K/ul) Final Monos, Abs 11/06/2023 09:05:53 1.02 0.00-1.10 (K/uL) Final Eos, Abs 11/06/2023 09:05:53 0.03 0.00-0.70 (K/uL) Final Basos, Abs 11/06/2023 09:05:53 0.05 0.00-0.20 (K/uL) Final Immature Granulocytes, Number 11/06/2023 09:05:53 0.07 0.00-0.20 (K/uL) Final Performing Location [facility]ORY [facility] [place] - [address] [facility] [address]
--- OUTSIDE RECORDS SUMMARY | 2023-11-29 11:26 | External Medical Summary | Summary of Care ---
Author Name Unknown Organization [facility] Address [address] [place] [address] Phone [phone] Care Team Providers Care Personnel And Payroll Technician Name Role Phone Kaitlin Barry MD Primary Care Prov ider Reason for Visit * Reason Onset Date Comments Appointment 11/06/2023 URGENT APPT- GAS TROENTEROLOGY Encounter Details Date Type Department Care Team (Late st Contact Info) Description 11/06/2023 Telephone Family Medicine [address] [id number] Kaitlin Barry MD [address] [place] [address] [place] [address] Appointment (URGENT APPT- GASTROENTEROLOGY) Allergies Active Allergy Reactions Criticality Noted Date Comments No Known Drug Allergy 02/09/2003 documented as of this encounter (statuses as of 11/06/2023) Medications Medication Sig Dispensed Refills Start Date End Date Status Cyanocobalamin (B-12) 1000 MCG CapsuleIndications:B1 2 deficiency Take 1 Cap by mouth daily. 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 30 Tablet 07/21/2022 Active OneTouch UltraSoft LancetsIndications:Ty pe 2 diabetes mellitus with hemoglobin A1c goal of less than 7.0% ([facility]) USE 1 TO CHECK GLUCOSE UP TO [...] (ventricular tachycardia) ([facility]),Dyslipidemia, goal LDL below 70,Essential (primary) hypertension,Chronic systolic [...] than 7.0% ([facility]) USE 1 STRIP TO CHECK GLUCOSE TWICE DAILY FASTING AND EVENING 200 Strip 08/10/2023 Active Furosemide 40 MG Oral Tablet (Lasix)Indications:Ch ronic systolic heart failure ([facility]),STEVENSON (acute kidney injury) ([facility]) As needed 10/23/2023 Active Clobetasol Propionate 0.05 [...] 10/26 Chronic obstructive pulmonary disease 10/28/2021 Overview: [place] dust expossure. Former smoker. Had PFTs 2014. [...] of inactive term GENERAL OSTEOARTHROSIS 05/01/2001 [place] (myocardial infarction) BPH without obstruction/lower urinary tract [...] mRNA, LNP-s, No Pre serve, 2-Dose Series ([facility]) 09/06/2020,08/16/2020 COVID-19, LNP-s, No Preserve , Alexander-sucrose, Ages 12+ ([facility]) 07/05/2021 COVID-19, MRNA-LNP, 23-24, P F, 31 [...] encounter Miscellaneous Notes * Telephone Encounter - Paula Pompa OSA - 11/06/2023 2:06 PM EDT Patient called back and I left him know that there were no soon appts so he went ahead and took forAug 1 in [employer] [facility] [employer] * Telephone Encounter - Briseida Gaitan OSA [...] Description 11/07/2023 12:30 PM EDT Imaging Radiology [facility] [address] [place] [address] 12/04/2023 1:00 PM EDT Cardiac Studies Cardiology [address] [place] [address] [facility] [address] [place] [address] 12/27/2023 10:00 AM EDT Office Visit Gastroenterology, [facility] [address] [place] [address] Ja Dinero CRNP [address] [place] [address] 05/20/2024 9:00 AM EST Office Visit Cardiology [address] [place] [address] Patrice Cheung PA-C [address] [place] [address] Health Maintenance Due Date Last Done Comments Depression Screening 12/31/2020 01/01/2020 COVID-19 Vaccine ( season) 2023 04/17/2023, 07/05/2021, 07/05/2021, Additional history exists Diabetic Eye Exam 01/11/2024 01/10/2023, , 06/02/2021, Additional history exists GFR 02/16/2024 08/16/2023, 01/27, 07/05/2022, Additional history exists HbA1c 02/16/2024 08/16/2023, 01/27, 10/28/2021, Additional history exists Albumin/Creatinine Ratio 02/22/2024 023, 10/28/2021, 01/19/2021, Additional history exists CKD PHOS USE SMARTSET 34753 02/22/202401/27, 06/21/2021, 03/22/2020, Additional history exists Diabetic Foot Exam 02/22/2024 02/21/2023, 0 10/28/2021, 09/21/2020, Additional history exists B-12 08/15/2024 08/16/2023, 02/0 12/2022, 06/21/2021, Additional history exists CKD HGB USE SMARTSET 99305 08/15/202408/15, 07/05/2022, 09/28/2021, Additional history exists TSH [...] this encounter Medical Devices Implanted Type Area Continuing Education Specialist Device Identifier Shelf Expiration Date Model / Serial / Lot Dbx 10cc [id number] - [id number] - [id number] Implanted:Qt y: 1 on 07/14/2021 by Kristian Chappell DO at OR [facility] 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 FND [id number] 01/28/2023 [id number] / [id number] / [id number] Prox Lat Humerus Plate Implanted:Qt y: 1 on 07/14/2021 by Kristian Chappell DO at OR [facility] Left: Shoulder MALLORY : [employer] [id number] / / Screw Nlk A3 Ti 3.5x32mm - [id number] Implanted:Qt y: 3 on 07/14/2021 by Kristian Chappell DO at OR [facility] Left: Shoulder MALLORY : TRAUMA [id number] / / Screw Lk A3 Ti 4x40mm - [id number] Implanted:Qt y: 1 on 07/14/2021 by Kristian Chappell DO at OR [facility] Left: Shoulder MALLORY : TRAUMA [id number] / / Screw Lk A3 Ti 4x55mm - [id number] Implanted:Qt y: 1 on 07/14/2021 by Kristian Chappell DO at OR [facility] Left: Shoulder MALLORY : TRAUMA [id number] / / Screw Lk A3 Ti 4x30mm - [id number] Implanted:Qt y: 1 on 07/14/2021 by Kristian Chappell DO at OR [facility] Left: Shoulder MALLORY : TRAUMA [id number] / / 3.5x55 Locking Screw Implanted:Qt y: 1 on 07/14/2021 by Kristian Chappell DO at OR [facility] Left: Shoulder MALLORY : OR[employer] [id number] / / documented as of this encounter Advance Directives * Full Code (Latest Code Status on File) Date Activated Date Inactivated Comments 07/14/2021 2:48 PM 07/15/2021 12:26 AM This order reflects the patients wishes and were consensually agreed upon. Question Answer Comments Discussion of Advance Directives occurred with: Not Discussed Care Teams Personnel And Payroll Technician Relationship Specialty Start Date End Date Kaitlin Barry MD [address] [place] [address] [place] [address] PCP - General Family Medicine 04/22/19 documented as of this encounter
--- OUTSIDE RECORDS SUMMARY | 2023-11-29 11:26 | External Medical Summary | Summary of Care ---
Author Name Unknown Organization [facility] Address [address] [facility] [place] [address] Phone [phone] Care Team Providers Care Coal Sampler Name Role Phone Kaitlin Barry MD Primary Care Prov ider Reason for Visit * Reason Comments Follow Up 6 month follow up. D enies chest pain, palpitations, SOB, edema and dizziness. Encounter Details Date Type Department Care Team (Late st Contact Info) Description 10/23/2023 2:00 PM EDT Office Visit Cardiology [address] [place] [address] Patrice Cheung PA-C [address] [place] [address] Ischemic cardiomyopathy*; Chronic systolic heart failure (HCC); STEVENSON (acute kidney injury) (HCC); Chronic ischemic heart disease; Dyslipidemia, goal LDL below 70; Presence of automatic cardioverter/defibril lator (AICD); Old GA (myocardial infarction) Allergies Active Allergy Reactions Criticality Noted Date Comments No Known Drug Allergy 02/09/2003 documented as of this encounter (statuses as of 10/23/2023) Medications Medication Sig Dispensed Refills Start Date End Date Status Cyanocobalamin (B-12) 1000 MCG CapsuleIndications: B12 deficiency Take 1 Cap by mouth daily. 30 Cap 5 6 Active Blood Glucose Monitoring Suppl (Sonexis Technology ULTRA SYSTEM) W/DEVICE KITIndications:Type 2 diabetes mellitus with hemoglobin A1c goal of less than 7.0% ([facility]) Test once a day DX:E11.9 1 Kit 6 Active nitroglycerin (NITROSTAT) 0.4 MG SUBLIndications:Chr onic ischemic heart disease one tab under tongue as needed for chest pain maximum 3 doses 25 Tab 5 0 Active Additional Information Patient not taking.Reported on 04/17/2023 Iron 28 MG Oral Tablet Take 1 Tablet by mouth in the morning. 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 30 Tablet 3 Active OneTouch UltraSoft LancetsIndications: Type 2 diabetes mellitus with hemoglobin A1c goal of less than 7.0% ([facility]) USE 1 TO CHECK GLUCOSE UP TO 4 TIMES DAILY DIRECTED E11.9 400 Each 3 3 Active Ventolin HFA 108 (90 Base) MCG/ACT Inhalation Aerosol SolutionIndications :Pneumonia of left lower lobe due to infectious organism Inhale 2 Puffs by mouth every 4 hours as needed for Cough, Shortness of Breath or Wheezing. 18 g 1 3 Active Hydrocortisone 2.5 % External CreamIndications:He morrhoids, unspecified hemorrhoid type Apply a small amount to rectal area twice daily for up to 14 days. 20 g 3 Active Ketoconazole 2 % External ShampooIndications: Dermatitis Apply topically to affected area every 3 days. Shampoo twice a week for 4 weeks. 120 mL 1 3 Active Levothyroxine Sodium 112 MCG Oral TabletIndications:A cquired hypothyroidism TAKE 1 TABLET BY MOUTH ONCE DAILY FIRST THING IN THE MORNING AT LEAST 30 MINUTES PRIOR TO BREAKFAST OR OTHER MEDS 90 Tablet 3 3 Active Isosorbide Mononitrate ER 30 MG Oral Tablet Extended Release 24 Hour (Imdur)Indications: Chronic systolic heart failure (HCC),Dyslipidemia, goal LDL below 70,Ischemic cardiomyopathy,Esse ntial (primary) hypertension TAKE 1 TABLET BY MOUTH ONCE DAILY IN THE MORNING 90 Tablet 3 4 Active Atorvastatin Calcium 40 MG Oral Tablet (Lipitor)Indication s:Dyslipidemia, goal LDL below 70,Chronic ischemic heart disease,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) TAKE 1 TABLET BY MOUTH IN THE MORNING 90 Tablet 3 4 Active metFORMIN HCl 1000 MG Oral TabletIndications:D iabetes mellitus with stage 3 chronic kidney disease (HCC) Take 1 tablet by mouth twice daily 180 Tablet 1 4 Active Metoprolol Succinate ER 100 MG Oral Tablet Extended Release 24 Hour (toPROL XL)Indications:Isch emic cardiomyopathy,Sust ained VT (ventricular tachycardia) (HCC),Dyslipidemia, goal LDL below 70,Essential (primary) hypertension,Chroni c systolic heart failure (HCC) TAKE 1 TABLET BY MOUTH IN THE MORNING 90 Tablet 1 4 Active Pantoprazole Sodium 40 MG Oral Tablet Delayed Release TAKE 1 TABLET BY MOUTH ONCE DAILY IN THE MORNING AND 1 TABLET ONCE DAILY AT BEDTIME 180 Tablet 1 4 Active OneTouch Ultra In Vitro StripIndications:Ty pe 2 diabetes mellitus with hemoglobin A1c goal of less than 7.0% (HCC) USE 1 STRIP TO CHECK GLUCOSE TWICE DAILY FASTING AND EVENING 200 Strip 1 4 Active Furosemide 40 MG Oral Tablet (Lasix)Indications: Chronic systolic heart failure (HCC),STEVENSON (acute kidney injury) (HCC) As needed 4 Active Furosemide 40 MG Oral Tablet (Lasix)Indications: Chronic systolic heart failure (HCC),STEVENSON (acute kidney injury) (HCC) Take 2 Tabs by mouth daily. 180 Tab 3 1 10/23/19 24 Discontinued documented as of this encounter (statuses as of 10/23/2023) Active Problems Problem Noted Date Diagnosed Date Chronic obstructive pulmonary disease 10/28/2021 Overview: Mcclain dust expossure. Former smoker. Had PFTs 2014. [...] of inactive term GENERAL OSTEOARTHROSIS 05/01/2001 Old GA (myocardial infarction) BPH without obstruction/lower urinary tract symp toms documented as of this encounter (statuses as of 10/23/2023) Resolved Problems Problem Noted Date Diagnosed Date [...] as of this encounter (statuses as of 10/23/2023) Immunizations Name Administration Dates Next Due COVID-19 mRNA, LNP-s, No Pre serve, 2-Dose Series (Squrl) 09/06/2020,08/16/2020 COVID-19, LNP-s, No Preserve , Alexander-sucrose, [...] (ADULT) 12/27/2007 TDAP (age 10 and older)(Boostrix) 03/11/2013 documented as of this encounter Social History [...] Sign Reading Time Taken Comments Blood Pressure 116/64 10/23/2023 1:50 PM EDT Pulse 80 10/23/2023 1:50 PM EDT Temperature - - Respiratory Rate 16 10/23/2023 1:50 PM EDT Oxygen Saturation - - Inhaled Oxygen Concentration - - Weight 80.7 kg (178 lb) 10/23/2023 1:50 PM EDT Height - - Body Mass Index 25.54 02/21/2023 10:34 AM EDT documented in this encounter Progress Notes * Patrice Cheung PA-C - 10/23/2023 2:06 PM EDT History of Present Illness: Juan Tavera is a 83 year old male here today for cardiology follow-up evaluation. Patient presents today feeling well. No complaints or concerns. No interim ER evaluations or hospitalizations. He denies chest pain or discomfort. No tachypalpitations. No device alarmsor discharges. Stable exertional dyspnea. No change in exercise tolerance or overall functional status. No resting or nocturnal dyspnea. Edema is controlled, taking furosemide as needed only, last maybe a month or two ago. Potassium was mildly elevated on the laboratory work in July 2023, intermittently elevated on past evaluations as well with patient consuming a diet high in potassium (takes his medications with vegetable juice). No orthopnea or PND. No dizziness or syncope. No melena hematochezia. Cardiac Problem List: ASCVD History of February 1992 anterior wall myocardial infarction initially treated with streptokinase, without definite evidence of reperfusion. Cardiac catheterization at that time revealed single vesseldisease with a very long, ugly 80% LAD stenosis. Status post plain old balloon angioplasty, decreasing the lesion from 80% to 30% with removal of a large thrombus just distal to the stenosis. Presentation with atypical chest pain in October 1995 with nuclear stress testing revealing anterior ischemia, diagnostic cardiac catheterization on November 26, 1995 revealing a 50% mid LAD stenosis with noother significant lesions noted. December 2004 NSTEMI January 16, 2005 diagnostic cardiac catheterization with a total occlusion of the LAD with otherwisenonobstructive coronary artery disease. Status post PCI of the LAD with a Taxus drug eluting stent. Ischemic cardiomyopathy. LVEF less than 20%. Chronic systolic congestive heart failure. NYHA Class II-III Narrow QRS duration Status post 03/23/2020 dual chamber rate responsive implantable cardiac defibrillator implantation by Dr. Rubio at [facility]. LV mural thrombus observed on 01/06/2020 Frequent ventricular ectopy, nonsustained ventricular tachycardia Hypertension Dyslipidemia Admission to [facility] on 06/23/2021, presenting with subjective dizziness, coffee- ground emesis. INR on presentation was 8.5. Hemoglobin was 7.5 g/dL on presentation. Received Vitamin K and K-centra in the ER. Status post transfusion of 3 U PRBC's in total. EGD on 06/24/2021 revealed gastritis and duodenitis with inflammation and luminal narrowing. Anticoagulation held. Patient previously prescribed Coumadin anticoagulation by the undersigned due to observed LV mural thrombus. Although documentation states no aspirin, ibuprofen, naproxen, or other nonsteroidal anti-inflammatory drugs x 6 weeks" the patient's aspirin was resumed at [facility] prior to discharge. Resting echocardiography on June 21, 2021 revealed an extensive area of myocardial thinning and akinesis involving the anterior, anteroseptal, inferoseptal, inferior and apical monterroso with qualitative LV ejection fraction <20%, with severely abnormal left ventricular diastolic function. No significant valvular pathology noted. 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 Old GA (myocardial infarction) Post herpetic neuralgia 07/21/2022 Past Surgical History: Procedure Laterality Date CARPAL TUNNEL SURGERY 02/04/1998 right CARPAL TUNNEL SURGERY 02/22/1998 left CATHETERIZE LEFT HEART THRU SKIN 1991 Cardiac Catheterization, Left Heart COLONOSCOPY W/ BIOPSY (RECTUM) 01/17/2007 hyperplastic tissue-repeat colonoscopy in 3-5 years COLORECTAL CANCER SCREEN; NOT AT RISK 02/02/2011 normal EGD, FLEXIBLE, DIAGNOSTIC 08/12/2019 large amount of bile and food, repeat 6-8 wks / ESOPHAGOGASTRODUODENOSCOPY (EGD), FLEXIBLE, TRANSORAL, DIAGNOSTIC performed by Suzy eDwey DO at [facility] EGD, FLEXIBLE, DIAGNOSTIC 01/15/2020 gastritis / [facility] EGD, FLEXIBLE, DIAGNOSTIC 06/24/2021 gastritis, duodenitis, repeat 8-12 wks / [facility] EGD, FLEXIBLE, DIAGNOSTIC N/A 09/23/2021 Acquired duodenal stenosis, otherwise normal / biopsiesshowed inflammatory changes without evidenceof an underlying malignancy HUMERAL FRACTURE W/ INTERNAL FIXATION Left 07/14/2021 OPEN TREATMENT PROXIMAL HUMERUS FRACTURE performed by Kristian Chappell DO at OR [facility] REMOVE TONSILS & ADENOIDS, UNDER 12 Tonsillectomy/Adenoids,<12 Y/O Family History Problem Relation Name Age of Onset Arthritis Mother Diabetes Mother Asthma Father Heart Disorder Father mi age 50's Lung Disorder Father Cancer Grandmother (Paternal) Arthritis Sister Cancer Aunt (Unspecified) breast Cancer Uncle (Unspecified) Heart Disorder Sister Cancer Sister liver Social History: Reformed smoker, quitting in 1991. 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 No illegal drug use. . Lives alone. 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 Enjoys hunting and fishing. Complete Review of Systems is as stated above, negative, or noncontributory. Review of patient's allergies indicates: Allergen Reactions No Known Drug Allergy Current Outpatient Medications Medication Sig Dispense Refill Cyanocobalamin (B-12) 1000 MCG Capsule Take 1 Cap by mouth daily. 30 Cap 5 Blood Glucose Monitoring Suppl (Sonexis Technology ULTRA SYSTEM) W/DEVICE KIT Test once a day DX:E11.9 1 Kit 0 Iron 28 MG Oral Tablet Take 1 Tablet by mouth in the morning. Aspirin 81 MG Oral Tablet Chewable Take 1 Tablet by mouth in the morning. 30 Tablet 0 OneTouch UltraSoft Lancets USE 1 TO CHECK GLUCOSE UP TO 4 TIMES DAILY DIRECTED E11.9 400 Each 3 Levothyroxine Sodium 112 MCG Oral Tablet TAKE [...] ONCE DAILY AT BEDTIME 180 Tablet 1 CorindusTouch Ultra In Vitro Strip USE 1 STRIP TO CHECK GLUCOSE TWICE DAILY FASTING AND EVENING 200 Strip 1 Furosemide 40 MG Oral Tablet (Lasix) As needed nitroglycerin (NITROSTAT) 0.4 MG SUBL one tab under tongue as needed for chest pain maximum 3 doses(Patient not taking: Reported on 04/17/2023) 25 Tab 5 Ventolin HFA 108 (90 Base) MCG/ACT Inhalation [...] week for 4 weeks. 120 mL 1 No current facility-administered medications for this visit. OBJECTIVE/PHYSICAL EXAMINATION: BP 116/64 | Pulse 80 | Resp 16 | Wt 80.7 kg (178 lb) | BMI 25.54 kg/m | BSA 2 m Blood pressure on my evaluation was 106/60 General: A&Ox3. NAD. HENT: Normocephalic. Atraumatic. Eyes: PER. Conjunctiva pink, sclera clear. Neck: Bilateral carotid bruits. No JVD. Heart: RRR. Soft systolic murmur. No rub. No gallop. PMI is displaced. Lungs: Clear. No wheeze. No rales. Abdomen: +BS. Soft. Nontender. No masses or organomegaly. Extremities: Mild distal lower extremity edema. No clubbing. No cyanosis. Limited neurological examination is without focal deficits. Pulses: radial=2/4, posterior tibial=1/4. Data: January 06, 2020 TTE Interpretation Summary (as per Dr. Castaneda): This study has what is deemed to be a "significant abnormality" consistent with ACT 112. See additional documentation regarding notification of patient and ordering provider. The Jayla Vazquez was notified by phone of the results. Pt. will be seen at the [facility] Cardiology clinic today. The LV wall thickness is mildly increased (concentric), in segments with normal systolic function.. There is an extensive area of myocardial thinning and akinesis involving the anterior wall, anterior septum, and left ventricular apex, with large non-laminated globular left ventricular apical thrombus. Qualitative LV ejection Fraction= 25- 30%. The estimated pulmonary artery systolic pressure is 25-30mm Hg. May 26, 2020 Lexiscan Interpretation Summary (as per Dr. Hein): Abnormal Lexiscan nuclear stress test. Stress test is positive for large area of scar without superimposed ischemia. Large scarinvolving the anterior, anteroseptal, inferoseptal, inferior and inferior lateral monterroso. Associatedwith severe hypokinesis to akinesis of the above segments. Severely reduced LV systolic function EFcalculated at 30%. No previous studies available for comparison. June 21, 2021 TTE Interpretation Summary (as per Dr. Hamilton): There is an extensive area of myocardial thinning and akinesis involving the anterior, anteroseptal, inferoseptal, inferior and apical monterroso. The qualitative LV ejection fraction is <20% (severely reduced). The left ventricular diastolic function is severely abnormal (grade III). There is no significant valvular pathology. Findings are similar those compared to the previous study dated 05/26/2020, there has been no significant interval change August 16, 2023 TTE Interpretation Summary (as per Dr. Hamilton): The examination is limited qualitybut adequate for evaluation of the referral indication. There is an extensive area of myocardial thinning and akinesis involving the anterior, anteroseptal, inferoseptal, inferior and apical monterroso. The qualitative LV ejection fraction is 30-34% (moderately reduced). The left atrium is mildly enlarged. The left ventricular diastolic function is mildly abnormal (grade I). Moderate aortic valve sclerosis is present. Aortic stenosis is absent. The left ventricular apex is suboptimally visualized. Compared to the previous study dated 06/21/2021, ultrasound contrast was not administered on the present study, and the left ventricular systolic function may therefore be over estimated. Without the administration of contrast, the LV apex is suboptimally visualized. No definite evidence of thrombus on technically limited evaluation. Device interrogation on July 24, 2023 demonstrated appropriate function. Remaining longevity: 7.6 years. Time in AT/AF: < 0.1%, the longest of which lasted 89 seconds on 04/10/2023. Nine episodes of NS-VT. AP 48%. HEAD TENNIS COACH < 0.1%. ASSESSMENT AND RECOMMENDATIONS/PLAN: ASCVD, severe ischemic cardiomyopathy with LVEF previously less than 20%, chronic systolic congestive heart failure. NYHA Class II. Narrow QRS complex Status post 03/23/2020 dual chamber rate responsive implantable cardiac defibrillator implantation by Dr. Rubio at [facility]. Asymptomatic. Compensated volume status. Patient has been very good at maintaining an acceptable volume status with self adjustments in furosemide dosing. Continue appropriate medical management; guideline directed medical therapy limited by hypotension,hyperkalemia, intermittent renal dysfunction, lack of prescription drug coverage. History of large non-laminated globular left ventricular apical thrombus. Probable paroxysmal atrial flutter, very brief in duration. Elevated CDG8PZ4- VASC Score. Anticoagulation discussed, electing to continue without Coumadin anticoagulation (does not have prescription drug coverage). Frequent ventricular ectopy, nonsustained ventricular tachycardia. Continue metoprolol. Maintain electrolytes. History of hypertension. Dyslipidemia. LDL goal less than 70 mg/day. LDL cholesterol 30 mg/dL on 02/21/2023. Continue atorvastatin 40 mg/day Renal dysfunction. Creatinine 1.1 mg/dL on 08/16/2023. Recurrent hyperkalemia and hyponatremia, quiescent. Reduce dietary potassium intake Anemia. H&H 13.6 an 42.8 on 08/16/2023. Hypothyroidism. TSH 3.68 uIU/mL on 08/16/2023. Continue levothyroxine as presently prescribed. Routine cardiology follow-up, or as needed. ER with emergencies. Patrice Cheung PA-C Department of Cardiology I spent a total of 30-39 minutes (exact time 30 mins) on the date of service in preparation, delivery, and documentation of the care provided to Juan Tavera excluding any time spent in the performance of separately billed services. This visit involved medical care services related to at least one serious condition or complex condition requiring ongoing care. This chart was completed in part ut [employer] Speech Voice Recognition Software. Grammatical errors, random word insertions, prounoun errors, and incomplete sentences are an occasional consequence of this system due to software limitations, ambient noise, and hardware issues. Any formal questions or concerns about the content, text, or information contained within the body of this dictation should be directly addressed to theprovider for clarification. documented in this encounter Nursing Notes * Perez Sue LPN - 10/23/2023 1:49 PM EDT Patient identified by full name and date of Chief Complaint Patient presents with Follow Up 6 month follow up. Denies chest pain, palpitations, SOB, edema and dizziness. Examination Room: 3 Name: Juan Tavera Date of : (1940). Reason for Visit: 6 month follow up Interim Hospitalization(s): Denies Problems/Concerns: Denies Chest Pain/SOB: Denies [facility] Discussed: Yes My [facility] is a way you can talk to your provider online through e-mail. Would you like to sign up? I can activate it for you? DECLINES Patient was instructed to not get up on the exam table until directed and assisted by their provider; patient is to remain seated in the chair/ wheelchair/ exam table for fall prevention and safety reasons. Patient is aware to have assistance to step down off exam table with personnel. Patient voiced full comprehension of instructions. documented in this encounter Plan of Treatment Upcoming Encounters Date Type Department Care Team (Late st Contact Info) Description 11/06/2023 9:00 AM EDT Office Visit Family Medicine [address] [place] [phone] Kaitlin Barry MD [address] [place] [address] [place] [address] 12/04/2023 1:00 PM EDT Cardiac Studies Cardiology [address] [place] [address] [facility] [address] [place] [id number] 05/20/2024 9:00 AM EST Office Visit Cardiology [address] [place] [address] Patrice Cheung PA-C [address] [place] [address] Health Maintenance Due Date Last Done Comments Depression Screening 12/31/2020 01/01/2020 DTaP,Tdap,and Td Vaccines (2 - Td or Tdap) 03/11/2023 03/11/2013, 12/27/2007 COVID-19 Vaccine ( season) 2023 04/17/2023, 07/05/2021, 07/05/2021, Additional history exists Diabetic Eye Exam 01/11/2024 01/10/2023, , 06/02/2021, Additional history exists GFR 02/16/2024 08/16/2023, 01/27, 07/05/2022, Additional history exists HbA1c 02/16/2024 08/16/2023, 01/27, 10/28/2021, Additional history exists Albumin/Creatinine Ratio 02/22/2024 023, 10/28/2021, 01/19/2021, Additional history exists CKD PHOS USE SMARTSET 64434 02/22/202401/27, 06/21/2021, 03/22/2020, Additional history exists Diabetic Foot Exam 02/22/2024 02/21/2023, 0 10/28/2021, 09/21/2020, Additional history exists O2 ASSESSMENT COMPLETED IN PAST YEAR FOR COPD 02/22/2024 02/21/2023 B-12 08/15/2024 08/16/2023, 02/0 12/2022, 06/21/2021, Additional history exists CKD HGB USE SMARTSET 54071 08/15/202408/15, 07/05/2022, 09/28/2021, Additional history exists TSH 08/15/2024 08/16/2023, 01/27, 07/05/2022, Additional history exists Pneumococcal Vaccine: 65+ Years Completed 04/16/2015, 12/27/2007, [...] encounter Medical Devices Implanted Type Area Head Of Business Development Device Identifier Shelf Expiration Date Model / Serial / Lot Dbx 10cc [id number] - [id number] - [id number] Implanted:Qt y: 1 on 07/14/2021 by Kristian Chappell DO at OR [facility] [facility] 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 FND [id number] 01/28/2023 [id number] / [id number] / [id number] Prox Lat Humerus Plate Implanted:Qt y: 1 on 07/14/2021 by Kristian Chappell DO at OR [facility] [place] Left: Shoulder MALLORY : ORTHOPAEDICS [id number] / / Screw Nlk A3 Ti 3.5x32mm - [id number] Implanted:Qt y: 3 on 07/14/2021 by Kristian Chappell DO at OR [facility] [place] Left: Shoulder MALLORY : TRAUMA [id number] / / Screw Lk A3 Ti 4x40mm - [id number] Implanted:Qt y: 1 on 07/14/2021 by Kristian Chappell DO at OR [facility] [place] Left: Shoulder MALLORY : TRAUMA [id number] / / Screw Lk A3 Ti 4x55mm - [id number] Implanted:Qt y: 1 on 07/14/2021 by Kristian Chappell DO at OR [facility] [place] Left: Shoulder MALLORY : TRAUMA [id number] / / Screw Lk A3 Ti 4x30mm - [id number] Implanted:Qt y: 1 on 07/14/2021 by Kristian Chappell DO at OR [facility] [place] Left: Shoulder MALLORY : TRAUMA [id number] / / 3.5x55 Locking Screw Implanted:Qt y: 1 on 07/14/2021 by Kristian Chappell DO at OR [facility] [place] [facility] Left: Shoulder MALLORY : ORTHOPAEDICS [id number] / / documented as of this encounter Visit Diagnoses Diagnosis Ischemic cardiomyopathy- Primary Other specified forms of chronic ischemic heart disease Chronic systolic heart failure (HCC) Chronic systolic heart failure STEVENSON (acute kidney injury) (HCC) Acute kidney failure, unspecified Chronic ischemic heart disease Chronic ischemic heart disease, unspecified Dyslipidemia, goal LDL below 70 Other and unspecified hyperlipidemia Presence of automatic cardioverter/defibrillator (AICD) Automatic implantable cardiac defibrillator in situ Old [place] (myocardial infarction) Old myocardial infarction documented in this encounter Advance Directives * Full Code (Latest Code Status on File) Date Activated Date Inactivated Comments 07/14/2021 2:48 PM 07/15/2021 12:26 AM This order reflects the patients wishes and were consensually agreed upon. Question Answer Comments Discussion of Advance Directives occurred with: Not Discussed Care Teams Coal Sampler Relationship Specialty Start Date End Date Kaitlin Barry MD [address] [place] [address] [place] [phone] PCP - General Family Medicine 04/22/19 documented as of this encounter
--- OUTSIDE RECORDS SUMMARY | 2023-11-29 11:26 | External Medical Summary | Summary of Care ---
Author Name Unknown Organization [facility] Address [address] [place] [address] Phone [phone] Care Team Providers Care Mechanical Test Technician Name Role Phone Kaitlin Barry MD Primary Care Prov ider Reason for Visit * Reason Onset Date Comments Appointment 11/06/2023 URGENT APPT- GAS TROENTEROLOGY Encounter Details Date Type Department Care Team (Late st Contact Info) Description 11/06/2023 Telephone Family Medicine [address] [phone] Kaitlin Barry MD [address] [place] [address] [place] [address] Appointment (URGENT APPT- GASTROENTEROLOGY) Allergies Active Allergy Reactions Criticality Noted Date Comments No Known Drug Allergy 02/09/2003 documented as of this encounter (statuses as of 11/06/2023) Medications Medication Sig Dispensed Refills Start Date End Date Status Cyanocobalamin (B-12) 1000 MCG CapsuleIndications:B1 2 deficiency Take 1 Cap by mouth daily. 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 30 Tablet 07/21/2022 Active OneTouch UltraSoft LancetsIndications:Ty pe 2 diabetes mellitus with hemoglobin A1c goal of less than 7.0% ([facility]) USE 1 TO CHECK GLUCOSE UP TO [...] XL)Indications:Ischem ic cardiomyopathy,Sustai leslie [place] (ventricular tachycardia) ([facility]),Dyslipidemia, goal LDL below 70,Essential (primary) hypertension,Chronic systolic [...] hemoglobin A1c goal of less than 7.0% ([facility]) USE 1 STRIP TO CHECK GLUCOSE TWICE DAILY FASTING AND EVENING 200 Strip 08/10/2023 Active Furosemide 40 MG Oral Tablet (Lasix)Indications:Ch ronic systolic heart failure ([facility]),STEVENSON (acute kidney injury) ([facility]) As needed 10/23/2023 Active Clobetasol Propionate 0.05 [...] 10/26 Chronic obstructive pulmonary disease 10/28/2021 Overview: [place] dust expossure. Former smoker. Had PFTs 2014. [...] mRNA, LNP-s, No Pre serve, 2-Dose Series ([employer]) 09/06/2020,08/16/2020 COVID-19, LNP-s, No Preserve , Alexander-sucrose, Ages 12+ ([employer]) 07/05/2021 COVID-19, MRNA-LNP, 23-24, P F, 30 [...] PM EDT Imaging Radiology [facility] [address] [place] [address] 12/04/2023 1:00 PM EDT Cardiac Studies Cardiology [address] [place] [address] [facility] [address] [place] [address] 05/20/2024 9:00 AM EST Office Visit Cardiology [address] [place] [address] Patrice Cheung PA-C [address] [place] [address] Health Maintenance Due Date Last Done Comments Depression Screening 12/31/2020 01/01/2020 COVID-19 Vaccine ( season) 2023 04/17/2023, 07/05/2021, 07/05/2021, Additional history exists Diabetic Eye Exam 01/11/2024 01/10/2023, , 06/02/2021, Additional history exists GFR 02/16/2024 08/16/2023, 01/27, 07/05/2022, Additional history exists HbA1c 02/16/2024 08/16/2023, 01/27, 10/28/2021, Additional history exists Albumin/Creatinine Ratio 02/22/2024 023, 10/28/2021, 01/19/2021, Additional history exists CKD PHOS USE SMARTSET 62292 02/22/202401/27, 06/21/2021, 03/22/2020, Additional history exists Diabetic Foot Exam 02/22/2024 02/21/2023, 0 10/28/2021, 09/21/2020, Additional history exists B-12 08/15/2024 08/16/2023, 02/0 12/2022, 06/21/2021, Additional history exists CKD HGB USE SMARTSET 14007 08/15/202408/15, 07/05/2022, 09/28/2021, Additional history exists TSH [...] this encounter Medical Devices Implanted Type Area Risk And Compliance Analytics Director Device Identifier Shelf Expiration Date Model / Serial / Lot Dbx 10cc [id number] - [id number] - [id number] Implanted:Qt y: 1 [place] 07/14[place]20[place] [facility] 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 FND [id number] 01/28/2023 [id number] / [id number] / [id number] Prox Lat Humerus Plate Implanted:Qt y: 1 on 07/14/2021 [place] Krist[place] [facility] [place]: Shoulder MALLORY : ORTHOPAEDICS [id number] / / Screw Nlk A3 Ti 3.5x32mm - [id number] Implanted:Qt y: 3 on 07/14/2021 [place] [facility] [place]er MALLORY : TRAUMA [id number] / / Screw Lk A3 Ti 4x40mm - [id number] Implanted:Qt y: 1 on 07/14/2021 [place] Kristian [place] [facility] [place]: Shoulder MALLORY : TRAUMA [id number] / / Screw Lk A3 Ti 4x55mm - [id number] Implanted:Qt y: 1 on 07/14/2021 by Kristian [place]ell DO [place] [facility] [place]: Shoulder MALLORY : TRAUMA [id number] / / Screw Lk A3 Ti 4x30mm - [id number] Implanted:Qt y: 1 on 07/14/2021 by Kristian [place] [facility] [place]: Shoulder MALLORY : TRAUMA [id number] / / 3.5x55 Locking Screw Implanted:Qt y: 1 on 07/14/2021 by Kristian [place] DO [place] [facility] [place] Shoulder MALLORY : ORTHOPAEDICS [id number] / / documented as of this encounter Advance Directives * Full Code (Latest Code Status on File) Date Activated Date Inactivated Comments 07/14/2021 2:48 PM 07/15/2021 12:26 AM This order reflects the patients wishes and were consensually agreed upon. Question Answer Comments Discussion of Advance Directives occurred with: Not Discussed Care Teams Mechanical Test Technician Relationship Specialty Start Date End Date Kaitlin Barry MD [address] [place] [address] [place] [address] PCP - General Family Medicine 04/22/19 documented as of this encounter
--- OUTSIDE RECORDS SUMMARY | 2023-11-29 11:26 | External Medical Summary | Summary of Care ---
Author Name Unknown Organization [facility] Address [address] [place] [address] Phone [phone] Care Team Providers Care Optics Technical Officer Name Role Phone Kaitlin Barry MD Primary Care Prov ider Reason for Visit * Reason Onset Date Comments MyCode Nonconsent - Not interested at this time 11/06/2023 Encounter Details Date Type Department Care Team (Late st Contact Info) Description 11/06/2023 Orders Only Outcomes Research Department [address], [place] [phone] Ann Mao CHRA MyCode Nonconsent Documentation Allergies Active Allergy Reactions Criticality Noted Date Comments No Known Drug Allergy 02/09/2003 documented as of this encounter (statuses as of 11/06/2023) Medications Medication Sig Dispensed Refills Start Date End Date Status Cyanocobalamin (B-12) 1000 MCG CapsuleIndications:B 12 deficiency Take 1 Cap by mouth daily. 30 Cap 5 01/14/2016 Active Blood Glucose Monitoring Suppl ([employer] ULTRA SYSTEM) W/DEVICE KITIndications:Type 2 diabetes mellitus with hemoglobin A1c goal of less than 7.0% ([facility]) Test once a day DX:E11.9 1 Kit 04/12/2016 Active nitroglycerin (NITROSTAT) 0.4 MG SUBLIndications:Joint Cleaning Machine Operator delores ischemic heart disease one tab under tongue as needed for chest pain maximum 3 doses 25 Tab 5 08/04/2019 Active Additional Information Patient not taking.Reported on 04/17/2023 Iron 28 MG Oral Tablet Take 1 Tablet by mouth in the morning. 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 30 Tablet 07/21/2022 Active OneTouch UltraSoft LancetsIndications:T ype 2 diabetes mellitus with hemoglobin A1c goal of less than 7.0% ([facility]) USE 1 TO CHECK GLUCOSE UP TO 4 TIMES DAILY DIRECTED E11.9 400 Each 3 07/21/2022 Active Ventolin HFA 108 (90 Base) MCG/ACT Inhalation Aerosol SolutionIndications: Pneumonia of left lower lobe due to infectious organism Inhale 2 Puffs by mouth every 4 hours as needed for Cough, Shortness of Breath or Wheezing. 18 g 1 10/18/2022 Active Hydrocortisone 2.5 % External CreamIndications:Hem orrhoids, unspecified hemorrhoid type Apply a small amount to rectal area twice daily for up to 14 days. 20 g 12/12/2022 Active Ketoconazole 2 % External ShampooIndications:D ermatitis Apply topically to affected area every 3 days. Shampoo twice a week for 4 weeks. 120 mL 1 01/12/2023 Active Levothyroxine Sodium 112 MCG Oral TabletIndications:Ac quired hypothyroidism TAKE 1 TABLET BY MOUTH ONCE DAILY FIRST THING IN THE MORNING AT LEAST 30 MINUTES PRIOR TO BREAKFAST OR OTHER MEDS 90 Tablet 3 05/23/2023 Active Isosorbide Mononitrate ER 30 MG Oral Tablet Extended Release 24 Hour (Imdur)Indications:C hronic systolic heart failure (HCC),Dyslipidemia, goal LDL below 70,Ischemic cardiomyopathy,Essen tial (primary) hypertension TAKE 1 TABLET BY MOUTH ONCE DAILY IN THE MORNING 90 Tablet 3 07/09/2023 Active Atorvastatin Calcium 40 MG Oral Tablet (Lipitor)Indications :Dyslipidemia, goal LDL below 70,Chronic ischemic heart disease,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) TAKE 1 TABLET BY MOUTH IN THE MORNING 90 Tablet 3 07/11/2023 Active metFORMIN HCl 1000 MG Oral TabletIndications:Di abetes mellitus with stage 3 chronic kidney disease (HCC) Take 1 tablet by mouth twice daily 180 Tablet 1 08/10/2023 Active Metoprolol Succinate ER 100 MG Oral Tablet Extended Release 24 Hour (toPROL XL)Indications:Ische carlos enrique cardiomyopathy,Susta ined VT (ventricular tachycardia) ([facility]),Dyslipidemia, goal LDL below 70,Essential (primary) hypertension,Chronic systolic heart failure ([facility]) TAKE 1 TABLET BY MOUTH IN THE MORNING 90 Tablet 1 08/10/2023 Active Pantoprazole Sodium 40 MG Oral Tablet Delayed Release TAKE 1 TABLET BY MOUTH ONCE DAILY IN THE MORNING AND 1 TABLET ONCE DAILY AT BEDTIME 180 Tablet 08/10/2023 Active OneTouch Ultra In Vitro StripIndications:Typ e 2 diabetes mellitus with hemoglobin A1c goal of less than 7.0% ([facility]) USE 1 STRIP TO CHECK GLUCOSE TWICE DAILY FASTING AND EVENING 200 Strip 08/10/2023 Active Furosemide 40 MG Oral Tablet (Lasix)Indications:C hronic systolic heart failure ([facility]),STEVENSON (acute kidney injury) ([facility]) As needed 10/23/2023 Acti ve documented as of this encounter (statuses as of 11/06/2023) Active Problems Problem Noted Date Diagnosed Date Type 2 diabetes mellitus wit h stage 2 chronic kidney disease, without long-term current use of insulin 11/06/2023 NSVT (nonsustained ventricular tachycardia) 10/26 Chronic obstructive pulmonary disease 10/28/2021 Overview: [place] dust expossure. Former smoker. Had PFTs 2014. 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 documented in this encounter Plan of Treatment Upcoming Encounters Date Type Department Care Team (Latest Contact Info) Description 11/06/2023 9:00 AM EDT Office Visit Family Medicine [address] [place] [phone] Kaitlin Barry MD [address] [place] [address] [place] [address] Dermatitis*; Chronic obstructive pulmonary disease, unspecified COPD type ([facility]); Type 2 diabetes mellitus with stage 2 chronic kidney disease, without long-term current use of insulin ([facility]); Acquired hypothyroidism; NSVT (nonsustained ventricular tachycardia) ([facility]); Type 2 diabetes mellitus with hemoglobin A1c goal of less than 7.0% ([facility]) 12/04/2023 1:00 PM EDT Cardiac Studies Cardiology [address] [place] [address] [facility] Pac[facility] [address] [place] [address] 05/20/2024 9:00 AM EST Office Visit Cardiology [address] [place] [address] Patrice Cheung PA-C [address] [place] [address] Health Maintenance Due Date Last Done Comments Depression Screening 12/31/2020 01/01/2020 COVID-19 Vaccine ( season) 2023 04/17/2023, 07/05/2021, 07/05/2021, Additional history exists Diabetic Eye Exam 01/11/2024 01/10/2023, , 06/02/2021, Additional history exists GFR 02/16/2024 08/16/2023, 01/27, 07/05/2022, Additional history exists HbA1c 02/16/2024 08/16/2023, 01/27, 10/28/2021, Additional history exists Albumin/Creatinine Ratio 02/22/2024 023, 10/28/2021, 01/19/2021, Additional history exists CKD PHOS USE SMARTSET 02526 02/22/202401/27, 06/21/2021, 03/22/2020, Additional history exists Diabetic Foot Exam 02/22/2024 02/21/2023, 0 10/28/2021, 09/21/2020, Additional history exists O2 ASSESSMENT COMPLETED IN PAST YEAR FOR COPD 02/22/2024 02/21/2023 B-12 08/15/2024 08/16/2023, 02/0 12/2022, 06/21/2021, Additional history exists CKD HGB USE SMARTSET 41966 08/15/202408/15, 07/05/2022, 09/28/2021, Additional history exists TSH 08/15/2024 08/16/2023, 01/27, 07/05/2022, Additional history exists DTaP,Tdap,and Td Vaccines (3 [...] this encounter Medical Devices Implanted Type Area Hot Patcher Device Identifier Shelf Expiration Date Model / Serial / Lot Dbx 10cc [id number] - [id number] - [id number] Implanted:Qt y: 1 on 07/14/2021 by Kristian Chappell DO at [place] [facility] 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 FND [id number] 01/28/2023 [id number] / [id number] / [id number] Prox Lat Humerus Plate Implanted:Qt y: 1 on 07/14/2021 by Kristian Chappell DO at [place] [facility] [place] Left: Shoulder MALLORY : ORTHOPAEDICS [id number] / / Screw Nlk A3 Ti 3.5x32mm - [id number] Implanted:Qt y: 3 on 07/14/2021 by Kristian Chappell DO at [place] [facility] [place] Left: Shoulder MALLORY : TRAUMA [id number] / / Screw Lk A3 Ti 4x40mm - [id number] Implanted:Qt y: 1 on 07/14/2021 by Kristian Chappell DO at [place] [facility] [place] Left: Shoulder MALLORY : TRAUMA [id number] / / Screw Lk A3 Ti 4x55mm - [id number] Implanted:Qt y: 1 on 07/14/2021 by Kristian Chappell DO at [place] [facility] [place] Left: Shoulder MALLORY : TRAUMA [id number] / / Screw Lk A3 Ti 4x30mm - [id number] Implanted:Qt y: 1 on 07/14/2021 by Kristian Chappell DO at [place] [facility] [place] Left: Shoulder MALLORY : TRAUMA [id number] / / 3.5x55 Locking Screw Implanted:Qt y: 1 on 07/14/2021 by Kristian Chappell DO at [place] [facility] [place] Left: Shoulder MALLORY : ORTHOPAEDICS [id number] / / documented as of this encounter Advance Directives * Full Code (Latest Code Status on File) Date Activated Date Inactivated Comments 07/14/2021 2:48 PM 07/15/2021 12:26 AM This order reflects the patients wishes and were consensually agreed upon. Question Answer Comments Discussion of Advance Directives occurred with: Not Discussed Care Teams Optics Technical Officer Relationship Specialty Start Date End Date Kaitlin Barry MD [address] [place] [address] [place] [address] PCP - General Family Medicine 04/22/19 documented as of this encounter
--- OUTSIDE RECORDS SUMMARY | 2023-11-29 11:26 | External Medical Summary | Summary of Care ---
Author Name Unknown Organization [facility] Address [address] [place] [address] Phone [phone] Care Team Providers Care Resident Care Coordinator Name Role Phone Kaitlin Barry MD Primary Care Prov ider Reason for Visit * Reason Onset Date Comments Appointment 11/06/2023 URGENT APPT- GAS TROENTEROLOGY Encounter Details Date Type Department Care Team (Late st Contact Info) Description 11/06/2023 Telephone Family Medicine [address] [phone] Kaitlin Barry MD [address] [place] [address] [place] [address] Appointment (URGENT APPT- GASTROENTEROLOGY) Allergies Active Allergy Reactions Criticality Noted Date Comments No Known Drug Allergy 02/09/2003 documented as of this encounter (statuses as of 11/07/2023) Medications Medication Sig Dispensed Refills Start Date End Date Status Cyanocobalamin (B-12) 1000 MCG CapsuleIndications:B1 2 deficiency Take 1 Cap by mouth daily. 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 30 Tablet 07/21/2022 Active OneTouch UltraSoft LancetsIndications:Ty pe 2 diabetes mellitus with hemoglobin A1c goal of less than 7.0% ([facility]) USE 1 TO CHECK GLUCOSE UP [...] cardiomyopathy,Sustai leslie [place] (ventricular tachycardia) ([facility]),Dyslipidemia, goal LDL below 70,Essential (primary) hypertension,Chronic [...] goal of less than 7.0% ([facility]) USE 1 STRIP TO CHECK GLUCOSE TWICE DAILY FASTING AND EVENING 200 Strip 08/10/2023 Active Furosemide 40 MG Oral Tablet (Lasix)Indications:Ch ronic systolic heart failure ([facility]),STEVENSON (acute kidney injury) ([facility]) As needed 10/23/2023 Active Clobetasol Propionate [...] Chronic obstructive pulmonary disease 10/28/2021 Overview: [place] dust expossure. Former smoker. Had PFTs 2014. 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 Pt aware he is on cancellation list. * Telephone Encounter - Paula Pompa OSA - 11/06/2023 2:06 PM EDT Patient called back and I left him know that there were no soon appts so he went ahead and took forAug 1 in [place] * Telephone Encounter - Briseida Gaitan OSA [...] Description 11/07/2023 12:30 PM EDT Imaging Radiology [address] [place] [address] 11/28/2023 1:30 PM EDT Office Visit Gastroenterology, [facility] [address] [place] [address] Ja Dinero CRNP [address] [place] [address] 12/04/2023 1:00 PM EDT Cardiac Studies Cardiology [address] [place] [address] [place] [address] [place] [address] 05/20/2024 9:00 AM EST Office Visit Cardiology [address] [place] [address] Patrice Cheung PA-C [address] [place] [address] Health Maintenance Due Date Last Done Comments Depression Screening 12/31/2020 01/01/2020 COVID-19 Vaccine ( season) 2023 04/17/2023, 07/05/2021, 07/05/2021, Additional history exists Diabetic Eye Exam 01/11/2024 01/10/2023, , 06/02/2021, Additional history exists HbA1c 02/16/2024 08/16/2023, 01/27, 10/28/2021, Additional history exists Albumin/Creatinine Ratio 02/22/2024 023, 10/28/2021, 01/19/2021, Additional history exists CKD PHOS USE SMARTSET 34209 02/22/202401/27, 06/21/2021, 03/22/2020, Additional history exists Diabetic Foot Exam 02/22/2024 02/21/2023, 0 10/28/2021, 09/21/2020, Additional history exists GFR 05/07/2024 11/06/2023, 07/27, 02/21/2023, Additional history exists B-12 08/15/2024 08/16/2023, 02/0 12/2022, 06/21/2021, Additional history exists TSH 08/15/2024 08/16/2023, 01/27, 07/05/2022, Additional history exists CKD HGB USE SMARTSET 24873 11/05/202411/05, 11/06/2023, 08/16/2023, Additional history exists O2 [...] this encounter Medical Devices Implanted Type Area License Examiner Device Identifier Shelf Expiration Date Model / Serial / Lot Dbx 10cc [id number] - [id number] - [id number] Implanted:Qt y: 1 on 07/14/2021 by Kristian Chappell DO at [place] [facility] [place] 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 FND [id number] 01/28/2023 [id number] / [id number] / [id number] Prox Lat Humerus Plate Implanted:Qt y: 1 on 07/14/2021 by Kristian Chappell DO at [place] [facility] [place] Left: Shoulder MALLORY : ORTHOPAEDICS [id number] / / Screw Nlk A3 Ti 3.5x32mm - [id number] Implanted:Qt y: 3 on 07/14/2021 by Kristian Chappell DO at [place] [facility] [place] Left: Shoulder MALLORY : TRAUMA [id number] / / Screw Lk A3 Ti 4x40mm - [id number] Implanted:Qt y: 1 on 07/14/2021 by Kristian Chappell DO at [place] [facility] [place] Left: Shoulder MALLORY : TRAUMA [id number] / / Screw Lk A3 Ti 4x55mm - [id number] Implanted:Qt y: 1 on 07/14/2021 by Kristian Chappell DO at [place] [facility] [place] Left: Shoulder MALLORY : TRAUMA [id number] / / Screw Lk A3 Ti 4x30mm - [id number] Implanted:Qt y: 1 on 07/14/2021 by Kristian Chappell DO at [place] [facility] [place] Left: Shoulder MALLORY : TRAUMA [id number] / / 3.5x55 Locking Screw Implanted:Qt y: 1 on 07/14/2021 by Kristian Chappell DO at [place] [facility] [place] Left: Shoulder MALLORY : ORTHOPAEDICS [id number] / / documented as of this encounter Advance Directives * Full Code (Latest Code Status on File) Date Activated Date Inactivated Comments 07/14/2021 2:48 PM 07/15/2021 12:26 AM This order reflects the patients wishes and were consensually agreed upon. Question Answer Comments Discussion of Advance Directives occurred with: Not Discussed Care Teams Resident Care Coordinator Relationship Specialty Start Date End Date Kaitlin Barry MD [address] [place] [address] [place] [address] PCP - General Family Medicine 04/22/19 documented as of this encounter
--- OUTSIDE RECORDS SUMMARY | 2023-11-29 11:26 | External Medical Summary ---
Author Name Unknown Address Unknown Organization K01:[facility] - [address] [place] [address] Laboratory Report Ordering Provider Test Date Status WANDA SHAW 11/06/2023 09:05:53 Final Observation Date Value Abnormality Reference (Units ) Status WBC, Total 11/06/2023 09:05:53 7.58 4.00-10.8 0 (K/uL) Final RBC 11/06/2023 09:05:53 4.71 4.50-5.25 (M/uL) Final Hemoglobin 11/06/2023 09:05:53 15.2 14.0-16.8 (g/dL) Final Anemia reflex testing trigge rs on a HGB < 12.0 for Females and HGB < 13.0 for Males in accordance with the WHO Anemia Guidelines
Anemia reflex testing triggers on a HGB < 12.0 for Females and HGB < 13.0 for Males in accordance with the WHO Anemia Guidelines HCT 11/06/2023 09:05:53 46.8 40.0-48.4 (%) Final MCV 11/06/2023 09:05:53 99.4 82.0-99.5 (fL) Final MCH 11/06/2023 09:05:53 32.3 27.0-34.0 (pg) Final MCHC 11/06/2023 09:05:53 32.5 32.0-36.0 (g/dL) Final RDW 11/06/2023 09:05:53 14.5 11.5-15.5 (%) Final Platelets 11/06/2023 09:05:53 329 140-400 (K /uL) Final MPV 11/06/2023 09:05:53 10.9 6.6-11.1 ( fL) Final Nucleated erythrocytes/100 leukocytes [Ratio] in Blood by Automated count 11/06/2023 09:05:53 0 <=0 (/100 WBCs) [facility] Performing Location [facility] - [address] [facility] [address]
--- OUTSIDE RECORDS SUMMARY | 2023-11-29 11:27 | External Medical Summary | Summary of Care ---
Author Name Unknown Organization [facility] [address] [facility] [address] Phone [phone] Care Team Providers Care Charging Board Operator Name Role Phone Kaitlin Barry MD Primary Care Prov ider Reason for Visit * Reason Onset Date Comments Test Results 08/17/2023 Encounter Details Date Type Department Care Team (Late st Contact Info) Description 08/17/2023 Telephone Cardiology, [facility] [address] [place] [address] Patrice Cheung PA-C [address] [place] [address] Test Results Allergies Active Allergy Reactions Criticality Noted Date Comments No Known Drug Allergy 02/09/2003 documented as of this encounter (statuses as of 08/17/2023) Medications Medication Sig Dispensed Refills Start Date End Date Status Cyanocobalamin (B-12) 1000 MCG CapsuleIndications:B 12 deficiency Take 1 Cap by mouth daily. 30 Cap 5 01/14/2016 Active Blood Glucose Monitoring Suppl (Stylus Media ULTRA SYSTEM) W/DEVICE KITIndications:Type 2 diabetes mellitus with hemoglobin A1c goal of less than 7.0% ([facility]) Test once a day DX:E11.9 1 Kit 0 04/12/2016 Active nitroglycerin (NITROSTAT) 0.4 MG SUBLIndications:Requirements Engineer delores ischemic heart disease one tab under tongue as needed for chest pain maximum 3 doses 25 Tab 5 08/04/2019 Active Additional Information Patient not taking.Reported on 04/17/2023 Furosemide 40 MG Oral Tablet (Lasix)Indications:C hronic systolic heart failure (HCC),STEVENSON (acute kidney injury) ([facility]) Take 2 Tabs by mouth daily. 180 Tab 3 01/19/2021 Active Additional Information Patient taking differently:80 mg Oral Daily(AM),Takes once or twice a week, Reported on 07/18/2022 Iron 28 MG Oral Tablet Take 1 Tablet by mouth in the morning. 0 Active Aspirin 81 MG Oral Tablet ChewableIndications: Type 2 diabetes mellitus with hemoglobin A1c goal of less than 7.0% (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) Take 1 Tablet by mouth in the morning. 30 Tablet 0 07/21/2022 Active OneTouch UltraSoft LancetsIndications:T ype 2 [...] up to 14 days. 20 g 0 12/12/2022 Active Ketoconazole 2 % External ShampooIndications:D [...] carlos enrique cardiomyopathy,Susta ined [place] (ventricular tachycardia) [facility] [...] 1 08/10/2023 Active OneTouch Ultra In Vitro StripIndications:Typ e 2 diabetes mellitus with hemoglobin A1c goal of less than 7.0% ([facility]) USE 1 STRIP TO CHECK GLUCOSE TWICE DAILY FASTING AND EVENING 200 Strip 1 08/10/2023 Active documented as of this encounter (statuses as of 08/17/2023) Active Problems Problem Noted Date Diagnosed Date Chronic obstructive pulmonary disease 10/28/2021 Overview: [place] dust expossure. Former smoker. Had PFTs 2014. [...] of inactive term GENERAL OSTEOARTHROSIS 05/01/2001 Old MD (myocardial infarction) BPH without obstruction/lower urinary tract symp toms documented as of this encounter (statuses as of 08/17/2023) Resolved Problems Problem Noted Date Diagnosed Date [...] as of this encounter (statuses as of 08/17/2023) Immunizations Name Administration Dates Next Due COVID-19 mRNA, LNP-s, No Pre serve, 2-Dose Series (LemonCrate) 09/06/2020,08/16/2020 COVID-19, LNP-s, No Preserve , Alexander-sucrose, Ages 12+ (LemonCrate) 07/05/2021 COVID-19, MRNA-LNP, 23-24, P F, 30 [...] encounter Miscellaneous Notes * Telephone Encounter - Meggan Patrick CMA - 08/17/2023 4:06 PM EDT Letter mailed. * Telephone Encounter - Meggan Patrick CMA - 08/17/2023 4:05 PM EDT ----- Message from Patrice Cheung PA-C sent at 08/17/2023 7:18 AM EDT ----- TSH normal! Continue as prescribed. documented in this encounter Plan of Treatment Upcoming Encounters Date Type Department Care Team (Late st Contact Info) Description 10/23/2023 2:00 PM EDT Office Visit Cardiology [address] [place] [address] Patrice Cheung PA-C [address] [place] [phone] 11/06/2023 9:00 AM EDT Office Visit Family Medicine [address] [place] [phone] Kaitlin Barry MD [address] [place] [address] [place] [address] 12/04/2023 1:00 PM EDT Cardiac Studies Cardiology [address] [place] [address] [place] [address] [facility] [place] [address] Health Maintenance Due Date Last Done Comments Depression Screening 12/31/2020 01/01/2020 DTaP,Tdap,and Td Vaccines (2 - Td or Tdap) 03/11/2023 03/11/2013, 12/27/2007 Diabetic Eye Exam 01/11/2024 01/10/2023, , 06/02/2021, Additional history exists GFR 02/16/2024 08/16/2023, 01/27, 07/05/2022, Additional history exists HbA1c 02/16/2024 08/16/2023, 01/27, 10/28/2021, Additional history exists Albumin/Creatinine Ratio 02/22/2024 023, 10/28/2021, 01/19/2021, Additional history exists CKD PHOS USE SMARTSET 73315 02/22/202401/27, 06/21/2021, 03/22/2020, Additional history exists Diabetic Foot Exam 02/22/2024 02/21/2023, 0 10/28/2021, 09/21/2020, Additional history exists O2 ASSESSMENT COMPLETED IN PAST YEAR FOR COPD 02/22/2024 02/21/2023 B-12 08/15/2024 08/16/2023, 02/0 12/2022, 06/21/2021, Additional history exists CKD HGB USE SMARTSET 52151 08/15/202408/15, 07/05/2022, 09/28/2021, Additional history exists TSH 08/15/2024 08/16/2023, 01/27, 07/05/2022, Additional history exists Pneumococcal Vaccine: 65+ Years Completed 04/16/2015, 12/27/2007, 05/15/2002 Influenza Vaccine (FLU shot) Completed 02/21/2023, 04/07/2022, 02/24/2021, Additional history exists COVID-19 Vaccine Completed 04/17/2023, 12/2021, 07/05/2021, Additional history exists Alpha-1 Antitrypsin Discontinued DXA [...] this encounter Medical Devices Implanted Type Area Public Health Staff Nurse Device Identifier Shelf Expiration Date Model / Serial / Lot Dbx 10cc [id number] - [id number] - [id number] Implanted:Qt y: 1 on 07/14/2021 by Kristian Chappell DO at OR [facility] [place] 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 FND [id number] 01/28/2023 [id number] / [id number] / [id number] Prox Lat Humerus Plate Implanted:Qt y: 1 on 07/14/2021 by Kristian Chappell DO at OR [facility] [place] Left: Shoulder MALLORY : ORTHOPAEDICS [id number] / / Screw Nlk A3 Ti 3.5x32mm - [id number] Implanted:Qt y: 3 on 07/14/2021 by Kristian Chappell DO OR [facility] [place] Left: Shoulder MALLORY : TRAUMA [id number] / / Screw Lk A3 Ti 4x40mm - [id number] Implanted:Qt y: 1 on 07/14/2021 by Kristian Chappell DO OR [facility] [place] Left: Shoulder MALLORY : TRAUMA [id number] / / Screw Lk A3 Ti 4x55mm - [id number] Implanted:Qt y: 1 on 07/14/2021 by Kristian Chappell DO at OR [facility] [place] Left: Shoulder MALLORY : TRAUMA [id number] / / Screw Lk A3 Ti 4x30mm - [id number] Implanted:Qt y: 1 on 07/14/2021 by Kristian Chappell DO at OR [facility] [place] Left: Shoulder MALLORY : TRAUMA [id number] / / 3.5x55 Locking Screw Implanted:Qt y: 1 on 07/14/2021 by Kristian Chappell DO at OR [facility] [place] Left: Shoulder MALLORY : ORTHOPAEDICS [id number] / / documented as of this encounter Advance Directives Latest Code Status on File Code Status Date Activated Date Inactivated Comments Full Code 07/14/2021 2:48 PM 07/15/2021 12:26 AM This order reflects the patients wishes and were consensually agreed upon. Question Answer Comments Discussion of Advance Directives occurred with: Not Discussed Care Teams Charging Board Operator Relationship Specialty Start Date End Date Kaitlin Barry MD [address] [place] [address] [place] [address] PCP - General Family Medicine 04/22/19 documented as of this encounter
--- OUTSIDE RECORDS SUMMARY | 2023-11-29 11:27 | External Medical Summary | Summary of Care ---
Author Name Unknown Organization [facility] Address [address] [facility] [address] Phone [phone] Care Team Providers Care Greige Mender Name Role Phone Kaitlin Barry MD Primary Care Prov ider Encounter Details Date Type Department Care Team (Late st Contact Info) Description 08/09/2023 Orders Only PATIENT PORTAL DO NOT DELETE THIS DEPT USED BY [place] [id number] Allergies Active Allergy Reactions Criticality Noted Date Comments No Known Drug Allergy 02/09/2003 documented as of this encounter (statuses as of 08/09/2023) Medications Medication Sig Dispensed Refills Start Date End Date Status Cyanocobalamin (B-12) 1000 MCG CapsuleIndications:B 12 deficiency Take 1 Cap by mouth daily. 30 Cap 5 01/14/2016 Active Blood Glucose Monitoring Suppl (TappnGo ULTRA SYSTEM) W/DEVICE KITIndications:Type 2 diabetes mellitus with hemoglobin A1c goal of less than 7.0% ([facility]) Test once a day DX:E11.9 1 Kit 0 04/12/2016 Active nitroglycerin (NITROSTAT) 0.4 MG SUBLIndications:Screed Operator delores ischemic heart disease one tab [...] of less than 7.0% (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) Take 1 Tablet by mouth in the morning. 30 Tablet 0 07/21/2022 Active Shipping Companyuch UltraSoft LancetsIndications:T ype 2 diabetes mellitus with hemoglobin A1c goal of less than 7.0% ([facility]) USE 1 TO CHECK GLUCOSE UP TO 4 TIMES DAILY DIRECTED E11.9 400 Each 3 07/21/2022 Active Ventolin HFA 108 (90 Base) MCG/ACT Inhalation Aerosol SolutionIndications: Pneumonia of left lower lobe due to infectious organism Inhale 2 Puffs by mouth every 4 hours as needed for Cough, Shortness of Breath or Wheezing. 18 g 1 10/18/2022 Active FanDuelTouch Ultra In Vitro StripIndications:Typ e 2 diabetes mellitus with hemoglobin A1c goal of less than 7.0% ([facility]) USE 1 STRIP TO CHECK GLUCOSE TWICE DAILY FASTING AND EVENING 200 Strip 1 12/07/2022 Active Hydrocortisone 2.5 % External CreamIndications:Hem orrhoids, unspecified hemorrhoid type Apply a small amount to rectal area twice daily for up to 14 days. 20 g 0 12/12/2022 Active Ketoconazole 2 % External ShampooIndications:D ermatitis Apply topically to affected area every 3 days. Shampoo twice a week for 4 weeks. 120 mL 1 01/12/2023 Active Metoprolol Succinate ER 100 MG Oral Tablet Extended Release 24 Hour (toPROL XL)Indications:Ische carlos enrique cardiomyopathy,Susta ined [place] (ventricular tachycardia) ([facility]),Dyslipidemia, goal LDL below 70,Essential (primary) hypertension,Chronic systolic heart failure ([facility]) TAKE 1 TABLET BY MOUTH IN THE MORNING 90 Tablet 1 02/10/2023 Active Pantoprazole Sodium 40 MG Oral Tablet Delayed Release TAKE 1 TABLET BY MOUTH ONCE DAILY IN THE MORNING AND 1 TABLET ONCE DAILY AT BEDTIME 180 Tablet 1 02/10/2023 Active metFORMIN HCl 1000 MG Oral TabletIndications:Di abetes mellitus with stage 3 chronic kidney disease ([facility]) Take 1 tablet by mouth twice daily 180 Tablet 1 03/12/2023 Active Levothyroxine Sodium 112 MCG Oral TabletIndications:Ac [...] THE MORNING 90 Tablet 3 07/11/2023 Active documented as of this encounter (statuses as of 08/09/2023) Active Problems Problem Noted Date Diagnosed Date Chronic obstructive pulmonary disease 10/28/2021 Overview: [place] dust expossure. Former smoker. Had PFTs 2014. [...] as of this encounter (statuses as of 08/09/2023) Resolved Problems Problem Noted Date Diagnosed Date [...] as of this encounter (statuses as of 08/09/2023) Immunizations Name Administration Dates Next Due COVID-19 mRNA, LNP-s, No Pre serve, 2-Dose Series ([place]) 09/06/2020,08/16/2020 COVID-19, LNP-s, No Preserve , Alexander-sucrose, [...] Care Team (Late st Contact Info) Description 08/16/2023 1:30 PM EDT Cardiac Studies Cardiac Studies [address] [place] [address] 10/23/2023 2:00 PM EDT Office Visit Cardiology [address] [place] [address] Patrice Cheung PA-C [address] [place] [address] 11/06/2023 9:00 AM EDT Office Visit Family Medicine [address] [place] [phone] Kaitlin Barry MD [address] [place] [address] [place] [address] 12/04/2023 1:00 PM EDT Cardiac Studies Cardiology [address] [place] [address] Usha M[facility] [address] [place] [address] Health Maintenance Due Date Last Done Comments Depression Screening 12/31/2020 01/01/2020 DTaP,Tdap,and Td Vaccines (2 - Td or Tdap) 03/11/2023 03/11/2013, 12/27/2007 B-12 07/05/2023 07/05/2022, 05/29, 02/23/2020, Additional history exists CKD HGB USE SMARTSET 34609 07/05/202307/05, 09/28/2021, 09/28/2021, Additional history exists GFR 08/22/2023 02/21/2023, 02/0 12/2022, 09/28/2021, Additional history exists HbA1c 08/22/2023 02/21/2023, 06/0 07/2021, 06/21/2021, Additional history exists Diabetic Eye Exam 01/11/2024 01/10/2023, , 06/02/2021, Additional history exists Albumin/Creatinine Ratio 02/22/2024 023, 10/28/2021, 01/19/2021, Additional history exists CKD PHOS USE SMARTSET 11011 02/22/20242 11/2022, 06/21/2021, 03/22/2020, Additional history exists Diabetic Foot Exam 02/22/2024 02/21/2023, 0 10/28/2021, 09/21/2020, Additional history exists O2 ASSESSMENT COMPLETED IN PAST YEAR FOR COPD 02/22/2024 02/21/2023 TSH 02/22/2024 02/21/2023, 02/0 12/2022, 09/28/2021, Additional history exists Pneumococcal Vaccine: 65+ Years [...] this encounter Medical Devices Implanted Type Area Recycler Device Identifier Shelf Expiration Date Model / Serial / Lot Dbx 10cc [id number] - [id number] - [id number] Implanted:Qt y: 1 on 07/14/2021 by Kristian Chappell DO [place] [facility] 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 FND [id number] 01/28/2023 [id number] / [id number] / [id number] Prox Lat Humerus Plate Implanted:Qt y: 1 on 07/14/2021 by Kristian Chappell DO [place] [facility] [place] Left: Shoulder MALLORY : ORTHOPAEDICS [id number] / / Screw Nlk A3 Ti 3.5x32mm - [id number] Implanted:Qt y: 3 on 07/14/2021 by Kristian Chappell DO [place] [facility] [place]: Shoulder MALLORY : TRAUMA [id number] / / Screw Lk A3 Ti 4x40mm - [id number] Implanted:Qt y: 1 on 07/14/2021 by Kristian Chappell DO at [place] [facility] [place] Left: Shoulder MALLORY : TRAUMA [id number] / / Screw Lk A3 Ti 4x55mm - [id number] Implanted:Qt y: 1 on 07/14/2021 by Kristian Chappell DO at [place] [facility] [place] Left: Shoulder MALLORY : TRAUMA [id number] / / Screw Lk A3 Ti 4x30mm - [id number] Implanted:Qt y: 1 on 07/14/2021 by Kristian Chappell DO at [place] [facility] [place] Left: Shoulder MALLORY : TRAUMA [id number] / / 3.5x55 Locking Screw Implanted:Qt y: 1 on 07/14/2021 by Kristian Chappell DO at [place] [facility] [place] Left: Shoulder MALLORY : ORTHOPAEDICS [id number] / / documented as of this encounter Advance Directives Latest Code Status on File Code Status Date Activated Date Inactivated Comments Full Code 07/14/2021 2:48 PM 07/15/2021 12:26 AM This order reflects the patients wishes and were consensually agreed upon. Question Answer Comments Discussion of Advance Directives occurred with: Not Discussed Care Teams Greige Mender Relationship Specialty Start Date End Date Kaitlin Barry MD [address] [place] [address] [place] [phone] PCP - General Family Medicine 04/22/19 documented as of this encounter
--- OUTSIDE RECORDS SUMMARY | 2023-11-29 11:27 | External Medical Summary | Summary of Care ---
Author Name Unknown Organization [facility] Address [address] [place] [address] Phone [phone] Care Team Providers Care Laundrette Owner Name Role Phone Valeria Barry MD Primary Care Prov ider Reason for Visit * Reason Onset Date Comments Health Maintenance 08/08/2023 Encounter Details Date Type Department Care Team (Late st Contact Info) Description 08/08/2023 Telephone Family [address] [phone] Valeria Barry MD [address] [place], [place] [address] [address] Health Maintenance Allergies Active Allergy Reactions Criticality Noted Date Comments No Known Drug Allergy 02/09/2003 documented as of this encounter (statuses as of 08/17/2023) Medications Medication Sig Dispensed Refills Start Date End Date Status Cyanocobalamin (B-12) 1000 MCG CapsuleIndications: B12 deficiency Take 1 Cap by mouth daily. 30 Cap 5 6 Active Blood Glucose Monitoring Suppl (OneTrueFan ULTRA SYSTEM) W/DEVICE KITIndications:Type 2 diabetes mellitus with hemoglobin A1c goal of less than 7.0% ([facility]) Test once a day DX:E11.9 1 Kit 0 6 Active nitroglycerin (NITROSTAT) 0.4 MG SUBLIndications:Chr onic ischemic heart disease one tab under tongue as needed for chest pain maximum 3 doses 25 Tab 5 0 Active Additional Information Patient not taking.Reported on 04/17/2023 Furosemide 40 MG Oral Tablet (Lasix)Indications: Chronic systolic heart failure (HCC),STEVENSON (acute kidney injury) ([facility]) Take 2 Tabs by mouth daily. 180 Tab 3 1 Active Additional Information Patient taking differently:80 mg Oral Daily(AM),Takes once or twice a week, Reported on 07/18/2022 Iron 28 MG Oral Tablet Take 1 Tablet by mouth in the morning. 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 30 Tablet 0 3 Active OneTouch UltraSoft LancetsIndications: Type 2 diabetes mellitus with hemoglobin A1c goal of less than 7.0% ([facility]) USE 1 TO CHECK GLUCOSE UP TO [...] up to 14 days. 20 g 0 3 Active Ketoconazole 2 % External ShampooIndications: [...] THE MORNING 90 Tablet 3 4 Active OneTouch Ultra In Vitro StripIndications:Ty pe 2 diabetes mellitus with hemoglobin A1c goal of less than 7.0% (HCC) USE 1 STRIP TO CHECK GLUCOSE TWICE DAILY FASTING AND EVENING 200 Strip 1 3 08/10/19 24 Discontinued Metoprolol Succinate ER 100 MG Oral Tablet Extended Release 24 Hour (toPROL XL)Indications:Isch emic cardiomyopathy,Sust ained VT (ventricular tachycardia) ([facility]),Dyslipidemia, goal LDL below 70,Essential (primary) hypertension,Chroni c systolic heart failure (HCC) TAKE 1 TABLET BY MOUTH IN THE MORNING 90 Tablet 1 3 08/10/19 24 Discontinued Pantoprazole Sodium 40 MG Oral Tablet Delayed Release TAKE 1 TABLET BY MOUTH ONCE DAILY IN THE MORNING AND 1 TABLET ONCE DAILY AT BEDTIME 180 Tablet 1 3 08/10/19 24 Discontinued metFORMIN HCl 1000 MG Oral TabletIndications:D iabetes mellitus with stage 3 chronic kidney disease (HCC) Take 1 tablet by mouth twice daily 180 Tablet 1 3 08/10/19 24 Discontinued documented as of this encounter (statuses as of 08/17/2023) Active Problems Problem Noted Date Diagnosed Date Chronic obstructive pulmonary disease 10/28/2021 Overview: Nance dust expossure. Former smoker. Had PFTs 2014. 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 [...] mRNA, LNP-s, No Pre serve, 2-Dose Series ([employer]) 09/06/2020,08/16/2020 COVID-19, LNP-s, No Preserve , Alexander-sucrose, [...] as of this encounter Miscellaneous Notes * Addendum Note - Valeria Barry MD - 08/17/2023 9:00 AM EDT Addended by: VALERIA MALAVE on: 08/17/2023 09:00 AM Modules accepted: Orders * Telephone Encounter - Emily Hampton LPN - 08/08/2023 9:34 AM EDT Care Gaps Comprehensive Care Outreach Last Office/Telemedicine Visit: 02/21/2023 (in office), Visit date not found (telemedicine) Next Office Visit: Visit date not found Hemoglobin AIC Results: Lab Results Component Value Date/Time HEMOGLOBIN A1C - [facility] 5.7 (H) 02/21/2023 11:16 AM HEMOGLOBIN A1C - [facility] 6.4 (H) 10/28/2021 10:21 AM HEMOGLOBIN A1C - [facility] 6.5 (H) 06/21/2021 02:42 PM HEMOGLOBIN A1C - [facility] 5.3 03/22/2020 03:01 PM HEMOGLOBIN A1C - [facility] 5.9 (H) 10/14/2019 10:24 AM HEMOGLOBIN A1C - [facility] 6.3 (H) 04/22/2019 08:19 AM BP Readings from Last 1 Encounters: 04/17/23 110/62 Reviewed Health Maintenance below: Health Maintenance Topic Date Due Depression Screening 12/31/2020 DTaP,Tdap,and Td Vaccines (2 - Td or Tdap) 03/11/2023 CKD HGB USE SMARTSET 51291 07/05/2023 B-12 07/05/2023 HbA1c 08/22/2023 GFR 08/22/2023 Diabetic Eye Exam 01/11/2024 Albumin/Creatinine Ratio 02/22/2024 Diabetic Foot Exam 02/22/2024 CKD PHOS USE SMARTSET 14141 02/22/2024 O2 ASSESSMENT COMPLETED IN PAST YEAR FOR COPD 02/22/2024 TSH 02/22/2024 Ov scheduled Labs ordered will walk in Care Gap Outreach Action Taken: Spoke to patient documented in this encounter Plan of Treatment Upcoming Encounters Date Type Department Care Team (Late st Contact Info) Description 10/23/2023 2:00 PM EDT Office Visit Cardiology [address] [place] [address] Patrice Cheung PA-C [address] [place] [phone] 11/06/2023 9:00 AM EDT Office Visit Family Medicine [address] [place] [phone] Valeria Barry MD [address] [place] [address] [place] [address] 12/04/2023 1:00 PM EDT Cardiac Studies Cardiology [address] [place] [address] [address]jo [address] [place] [phone] Scheduled Orders Name Type Priority Associated Diagnoses Orde r Schedule FOLIC ACID Lab Routine 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 Macrocytic anemia Expected: 08/17/2023 (Approximate), Expires: 08/16/2024 Health Maintenance Due Date Last Done Comments Depression Screening 12/31/2020 01/01/2020 DTaP,Tdap,and Td Vaccines (2 - Td or Tdap) 03/11/2023 03/11/2013, 12/27/2007 Diabetic Eye Exam 01/11/2024 01/10/2023, , 06/02/2021, Additional history exists GFR 02/16/2024 08/16/2023, 01/27, 07/05/2022, Additional history exists HbA1c 02/16/2024 08/16/2023, 01/27, 10/28/2021, Additional history exists Albumin/Creatinine Ratio 02/22/2024 023, 10/28/2021, 01/19/2021, Additional history exists CKD PHOS USE SMARTSET 94093 02/22/202401/27, 06/21/2021, 03/22/2020, Additional history exists Diabetic Foot Exam 02/22/2024 02/21/2023, 0 10/28/2021, 09/21/2020, Additional history exists O2 ASSESSMENT COMPLETED IN PAST YEAR FOR COPD 02/22/2024 02/21/2023 B-12 08/15/2024 08/16/2023, 02/0 12/2022, 06/21/2021, Additional history exists CKD HGB USE SMARTSET 33229 08/15/202408/15, 07/05/2022, 09/28/2021, Additional history exists TSH [...] this encounter Medical Devices Implanted Type Area Rn Internship Device Identifier Shelf Expiration Date Model / Serial / Lot Dbx 10cc [id number] - [id number] - [id number] Implanted:Qt y: 1 on 07/14/2021 by Kristian Chappell DO at [place] [facility] 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 FND [id number] 01/28/2023 [id number] / [id number] / [id number] Prox Lat Humerus Plate Implanted:Qt y: 1 on 07/14/2021 by Kristian Chappell DO at [place] [facility] [place] Left: Shoulder MALLORY : ORTHOPAEDICS [id number] / / Screw Nlk A3 Ti 3.5x32mm - [id number] Implanted:Qt y: 3 on 07/14/2021 by Kristian Chappell DO OR [facility] Left: Shoulder MALLORY : TRAUMA [id number] / / Screw Lk A3 Ti 4x40mm - [id number] Implanted:Qt y: 1 on 07/14/2021 by Kristian Chappell DO at OR [facility] [place] Left: Shoulder MALLORY : TRAUMA [id number] / / Screw Lk A3 Ti 4x55mm - [id number] Implanted:Qt y: 1 on 07/14/2021 by Kristian Chappell DO OR [facility] [place] Left: Shoulder MALLORY : TRAUMA [id number] / / Screw Lk A3 Ti 4x30mm - [id number] Implanted:Qt y: 1 on 07/14/2021 by Kristian Chappell DO OR [facility] Left: Shoulder MALLORY : TRAUMA [id number] / / 3.5x55 Locking Screw Implanted:Qt y: 1 on 07/14/2021 by Kristian Chappell DO at OR [facility] [place] Left: Shoulder MALLORY : ORTHOPAEDICS [id number] / / documented as of this encounter Results * VITAMIN B12 (08/16/2023 2:01 PM EDT) [facility] Vitamin B12 926 232 - 1,245 pg/mL 08/17/2023 2:11 AM EDT LABORATORY [facility] Blood Venous blood specimen / Unknown Venipuncture / Unknown 08/16/2023 2:01 PM EDT 08/16/2023 2:01 PM EDT Valeria Nayak MD LAB BLOOD ORDERABLES Performing Organization Address [facility] de Phone Number LABORATORY [address] [address] * (ABNORMAL) HEMOGLOBIN A1C (08/16/2023 2:01 PM EDT) [facility] Hemoglobin A1C 5.7(H) 4.0 - 5.6 % 08/17/2023 12:14 AM EDT LABORATORY [facility] Comment:The use of HbA1c to monitor glycemic status is based on normal hemoglobin and HbA composition. This test should not be used in patients with abnormal hemoglobin that affects the half life of the red blood cell or the in vivo glycation rates. Estimated Average Glucose 117 <126 mg/dL 08/17/2023 12:14 AM EDT LABORATORY [facility] Blood Venous blood specimen / Unknown Venipuncture / Unknown 08/16/2023 2:01 PM EDT 08/16/2023 2:01 PM EDT Valeria Nayak MD LAB BLOOD ORDERABLES Performing Organization Address [facility] Co de Phone Number LABORATORY [place] [address] [place] [address] * (ABNORMAL) COMPREHENSIVE METABOLIC PANEL (08/16/2023 2:01 PM EDT) [facility] BUN 17 6 - 20 mg/dL 08/16/2023 10:52 PM EDT LAB[facility]ATORY [facility] Creatinine 1.1 0.6 - 1.2 mg/dL 08/16/2023 10:52 PM EDT LAB[facility]ORY [facility] Estimated Glomerular Filtration Rate 69 >=60 mL/min 08/16/2023 10:52 PM EDT LAB[facility]ATORY [facility] Comment:eGFR is calculated b ased on the CKD-EPI 2020 equation Sodium 141 135 - 146 mmol/L 08/16/2023 10:52 PM EDT LAB[facility]ATORY [facility] Potassium 5.4(H) 3.5 - 5.1 mmol/L 08/16/2023 10:52 PM EDT LAB[facility]AT[facility] Chloride 106 98 - 107 mmol/L 08/16/2023 10:52 PM EDT LAB[facility]ATORY [facility] CO2 28 22 - 32 mmol/L 08/16/2023 10:52 PM EDT LABORATORY C Anion Gap 7 7 - 15 mmol/L 08/16/2023 10:52 PM EDT LAB[facility]ORY [facility] Glucose 101 70 - 120 mg/dL 08/16/2023 10:52 PM EDT LAB[facility]ATORY [facility] Albumin 2.8(L) 3.8 - 5.0 g/dL 08/16/2023 10:52 PM EDT LAB[facility] AST 19 10 - 50 U/L 08/16/2023 10:52 PM EDT LAB[facility] Alkaline Phosphatase 104 35 - 130 U/L 08/16/2023 10:52 PM EDT LAB[facility] Bilirubin, Total <0.2 <=1.2 mg/dL 08/16/2023 10:52 PM EDT [facility] Calcium 8.5 8.4 - 10.2 mg/dL 08/16/2023 10:52 PM EDT [facility] Protein 5.3(L) 6.0 - 8.3 g/dL 08/16/2023 10:52 PM EDT [facility] ALT 12 10 - 50 U/L 08/16/2023 10:52 PM EDT LABORATORY C Blood Venous blood specimen / Unknown Venipuncture / Unknown 08/16/2023 2:01 PM EDT 08/16/2023 2:01 PM EDT Valeria Nayak MD LAB BLOOD ORDERABLES [facility] [address] [place] [address] * (ABNORMAL) CBC (08/16/2023 2:01 PM EDT) WBC 7.02 4.00 - 10.80 K/uL 08/16/2023 11:00 PM EDT LAB[facility] RBC 4.23 4.50 - 5.25 M/uL 08/16/2023 11:00 PM EDT LAB[facility]ORY [facility] HGB 13.6(L) 14.0 - 16.8 g/dL 08/16/2023 11:00 PM EDT LAB[facility] HCT 42.8 40.0 - 48.4 % 08/16/2023 11:00 PM EDT LAB[facility]ORY [facility] MCV 101.2 82.0 - 99.5 fL 08/16/2023 11:00 PM EDT LAB[facility] MCH 32.2 27.0 - 34.0 pg 08/16/2023 11:00 PM EDT LAB[facility]ORY [facility] MCHC 31.8 32.0 - 36.0 g/dL 08/16/2023 11:00 PM EDT LAB[facility] RDW 15.5 11.5 - 15.5 % 08/16/2023 11:00 PM EDT LAB[facility]ORY [facility] PLT 296 140 - 400 K/uL 08/16/2023 11:00 PM EDT LAB[facility] MPV 10.7 6.6 - 11.1 fL 08/16/2023 11:00 PM EDT LAB[facility]ORY [facility] nRBCs 0 <=0 /100 WBCs 08/16/2023 11:00 PM EDT LAB[facility]ORY [facility] Blood Venous blood specimen / Unknown Venipuncture / Unknown 08/16/2023 2:01 PM EDT 08/16/2023 2:01 PM EDT Valeria Nayak MD LAB BLOOD ORDERABLES [facility] [address] [place] [address] documented in this encounter Visit Diagnoses Diagnosis Diabetes mellitus screening- Primary Screening for diabetes mellitus On jail drug therapy Chronic kidney disease, unspecified CKD stage 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 Question Answer Comments Discussion of Advance Directives occurred with: Not Discussed Care Teams Laundrette Owner Relationship Specialty Start Date End Date Valeria Barry MD [address] [place] [address] [place] [phone] PCP - General Family Medicine 04/22/19 documented as of this encounter
--- OUTSIDE RECORDS SUMMARY | 2023-11-29 11:27 | External Medical Summary | Summary of Care ---
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 180 [...] whether stage 3a or 3b CKD ([facility]) Take 1 Tablet by mouth in the [...] carlos enrique cardiomyopathy,Susta ined VT (ventricular tachycardia) ([facility]),Dyslipidemia, goal LDL below 70,Essential (primary) hypertension,Chronic systolic heart failure ([facility]) TAKE 1 TABLET BY MOUTH IN THE [...] as of this encounter (statuses as of 08/16/2023) Active Problems Problem Noted Date Diagnosed Date Chronic obstructive pulmonary disease 10/28/2021 Overview: [place] dust expossure. Former smoker. Had PFTs 2014. [...] as of this encounter (statuses as of 08/16/2023) Resolved Problems Problem Noted Date Diagnosed Date [...] as of this encounter (statuses as of 08/16/2023) Immunizations Name Administration Dates Next Due COVID-19 mRNA, LNP-s, No Pre serve, 2-Dose Series ([employer]) 09/06/2020,08/16/2020 COVID-19, LNP-s, No Preserve , Alexander-sucrose, [...] 10/23/2023 2:00 PM EDT Office Visit Cardiology [address] [place] [address] Patrice Cheung PA-C [address] [place] [address] 11/06/2023 9:00 AM EDT Office Visit Family Medicine [address] [place] [phone] Kaitlin Barry MD [address] [place] [address] [place] [address] 12/04/2023 1:00 PM EDT Cardiac Studies Cardiology [address] [place] [address] Usha Marmolejo [facility] [address] [place] [address] Pending Results Name Type Priority Associated Diagnoses Date /Time TSH WITH FREE T4 IF INDICATED Lab Routine Acquired hypothyroidism 08/16/2023 2:01 PM EDT CBC Lab Routine Chronic kidney disease, unspecified CKD stage 08/16/2023 2:01 PM EDT COMPREHENSIVE METABOLIC PANEL Lab Routine Chronic kidney disease, unspecified CKD stage 08/16/2023 2:01 PM EDT HEMOGLOBIN A1C Lab Routine 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) 08/16/2023 2:01 PM EDT VITAMIN B12 Lab Routine On [facility] drug therapy 08/16/2023 2:01 PM EDT Health Maintenance Due Date Last Done Comments Depression Screening 12/31/2020 01/01/2020 DTaP,Tdap,and Td Vaccines (2 - Td or Tdap) 03/11/2023 03/11/2013, 12/27/2007 B-12 07/05/2023 07/05/2022, 05/29, 02/23/2020, Additional history exists CKD HGB USE SMARTSET 21272 07/05/202307/05, 09/28/2021, 09/28/2021, Additional history exists GFR 08/22/2023 02/21/2023, 02/0 12/2022, 09/28/2021, Additional history exists HbA1c 08/22/2023 02/21/2023, 06/0 07/2021, 06/21/2021, Additional history exists Diabetic Eye Exam 01/11/2024 01/10/2023, , 06/02/2021, Additional history exists Albumin/Creatinine Ratio 02/22/2024 023, 10/28/2021, 01/19/2021, Additional history exists CKD PHOS USE SMARTSET 18857 02/22/20242 11/2022, 06/21/2021, 03/22/2020, Additional history exists [...] this encounter Medical Devices Implanted Type Area Medical Underwriter Device Identifier Shelf Expiration Date Model / Serial / Lot Dbx 10cc [id number] - [id number] - [id number] Implanted:Qt y: 1 on 07/14/2021 by Kristian Chappell DO at OR [facility] 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 FND [id number] 01/28/2023 [id number] / [id number] / [id number] Prox Lat Humerus Plate Implanted:Qt y: 1 on 07/14/2021 by Kristian Chappell DO OR [facility] Left: Shoulder MALLORY : ORTHOPAEDICS [id number] / / Screw Nlk A3 Ti 3.5x32mm - [id number] Implanted:Qt y: 3 on 07/14/2021 by Kristian Chappell DO OR [facility] Left: Shoulder MALLORY : TRAUMA [id number] / / Screw Lk A3 Ti 4x40mm - [id number] Implanted:Qt y: 1 on 07/14/2021 by Kristian Chappell DO OR [facility] Left: Shoulder MALLORY : TRAUMA [id number] / / Screw Lk A3 Ti 4x55mm - [id number] Implanted:Qt y: 1 on 07/14/2021 by Kristian Chappell DO OR [facility] Left: Shoulder MALLORY : TRAUMA [id number] / / Screw Lk A3 Ti 4x30mm - [id number] Implanted:Qt y: 1 on 07/14/2021 by Kristian Chappell DO at OR [facility] Left: Shoulder MALLORY : TRAUMA [id number] / / 3.5x55 Locking Screw Implanted:Qt y: 1 on 07/14/2021 by Kristian Chappell DO at OR [facility] Left: Shoulder MALLORY : ORTHOPAEDICS [id number] / / documented as of this encounter Visit Diagnoses Diagnosis Acquired hypothyroidism Unspecified hypothyroidism Chronic kidney disease, unspecified CKD stage 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 Question Answer Comments Discussion of Advance Directives occurred with: Not Discussed Care Teams Hr Associate Relationship Specialty Start Date End Date Kaitlin Barry MD [address] [place] [address] [place] [address] PCP - General Family Medicine 04/22/19 documented as of this encounter
--- OUTSIDE RECORDS SUMMARY | 2023-11-29 11:27 | External Medical Summary | Summary of Care ---
Author Name Unknown Organization [facility] Address [address] [place] [address] Phone [phone] Care Team Providers Care Services Manager Name Role Phone Kaitlin Barry MD Primary Care Prov ider Reason for Visit * Reason Onset Date Comments Test Results 08/17/2023 Encounter Details Date Type Department Care Team (Late st Contact Info) Description 08/17/2023 Telephone Family [address] [phone] Kaitlin Barry MD [address] [place], [place] [address] [address] Test Results Allergies Active Allergy Reactions Criticality Noted Date Comments No Known Drug Allergy 02/09/2003 documented as of this encounter (statuses as of 08/23/2023) Medications Medication Sig Dispensed Refills Start Date End Date Status Cyanocobalamin (B-12) 1000 MCG CapsuleIndications:B 12 deficiency Take 1 Cap by mouth daily. 30 Cap 5 01/14/2016 Active Blood Glucose Monitoring Suppl (BECC ULTRA SYSTEM) W/DEVICE KITIndications:Type 2 diabetes mellitus with hemoglobin A1c goal of less than 7.0% ([facility]) Test once a day DX:E11.9 1 Kit 0 04/12/2016 Active nitroglycerin (NITROSTAT) 0.4 MG SUBLIndications:Control Systems Eng delores ischemic heart disease one tab under tongue as needed for chest pain maximum 3 doses 25 Tab 5 08/04/2019 Active Additional Information Patient not taking.Reported on 04/17/2023 Furosemide 40 MG Oral Tablet (Lasix)Indications:C hronic systolic heart failure (HCC),STEVENSON (acute kidney injury) ([facility]) Take 2 Tabs by mouth daily. 180 Tab 3 01/19/2021 Active Additional Information Patient taking differently:80 mg Oral Daily(AM),Takes once or twice a week, Reported on 07/18/2022 Iron 28 MG Oral Tablet Take 1 Tablet by mouth in the morning. 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 30 Tablet 0 07/21/2022 Active OneTouch UltraSoft LancetsIndications:T ype 2 diabetes mellitus with hemoglobin A1c goal of less than 7.0% ([facility]) USE 1 TO CHECK GLUCOSE UP TO [...] carlos enrique cardiomyopathy,Susta ined [place] (ventricular tachycardia) ([facility]),Dyslipidemia, goal LDL below 70,Essential (primary) hypertension,Chronic systolic heart failure ([facility]) TAKE 1 TABLET BY MOUTH IN THE MORNING 90 Tablet 1 08/10/2023 Active Pantoprazole Sodium 40 MG Oral Tablet Delayed Release TAKE 1 TABLET BY MOUTH ONCE DAILY IN THE MORNING AND 1 TABLET ONCE DAILY AT BEDTIME 180 Tablet 1 08/10/2023 Active OneTouch Ultra In Vitro StripIndications:Typ e 2 diabetes mellitus with hemoglobin A1c goal of less than 7.0% ([facility]) USE 1 STRIP TO CHECK GLUCOSE TWICE DAILY FASTING AND EVENING 200 Strip 1 08/10/2023 Active documented as of this encounter (statuses as of 08/23/2023) Active Problems Problem Noted Date Diagnosed Date Chronic obstructive pulmonary disease 10/28/2021 Overview: [place] dust expossure. Former smoker. Had PFTs 2014. [...] as of this encounter (statuses as of 08/23/2023) Resolved Problems Problem Noted Date Diagnosed Date [...] as of this encounter (statuses as of 08/23/2023) Immunizations Name Administration Dates Next Due COVID-19 mRNA, LNP-s, No Pre serve, 2-Dose Series ([employer]) 09/06/2020,08/16/2020 COVID-19, LNP-s, No Preserve , Alexander-sucrose, [...] encounter Miscellaneous Notes * Telephone Encounter - Cher Rosario RN - 08/23/2023 11:25 AM EDT Patient notified and states he will never change his mind about having a colonoscopy done, counseled him if he does to call. Reason for Call: Test Results Contact: Telephone Call Contact Type: Test Results Outcome: see note Face to face time spent with Patient (minutes): 0 Total Time including non face to face (minutes): 10 * Telephone Encounter - Kaitlin Barry MD - 08/22/2023 4:37 PM EDT I was able to add on additional blood test, which was run and came back normal. We will keep an eye on his anemia. Continue iron supplement. Please let me know if he changes his mind about colonoscopy. * Telephone Encounter - Gabi Tucker LPN - 08/22/2023 1:56 PM EDT Patient is aware of Note below He states he will do all the blood work that you want him to do , but Absolutely ref to do Colonoscopy. He states he has had it done before and does not like the after affects and states I will just live with anemia FYI Agreeable to further blood work. Ref Colonoscopy * Telephone Encounter - Kaitlin Barry MD - 08/17/2023 9:01 AM EDT His labs show well managed diabetes. I am concerned that he is developing anemia however. I am adding on additional tests to his blood work to see if there might be a nutritional deficiency. I would also recommend colonoscopy to see if the anemia is related to GI blood loss or colon cancer. Please pend if he is agreeable. documented in this encounter Plan of Treatment Upcoming Encounters Date Type Department Care Team (Late st Contact Info) Description 10/23/2023 2:00 PM EDT Office Visit Cardiology [address] [place] [address] Patrice Cheung PA-C [address] [place] [address] 11/06/2023 9:00 AM EDT Office Visit Family Medicine [address] [place] [phone] Kaitlin Barry MD [address] [place] [address] [place] [address] 12/04/2023 1:00 PM EDT Cardiac Studies Cardiology [address] [place] [address] [facility] [address] [place] [address] Health Maintenance Due Date Last Done Comments Depression Screening 12/31/2020 01/01/2020 DTaP,Tdap,and Td Vaccines (2 - Td or Tdap) 03/11/2023 03/11/2013, 12/27/2007 Diabetic Eye Exam 01/11/2024 01/10/2023, , 06/02/2021, Additional history exists GFR 02/16/2024 08/16/2023, 01/27, 07/05/2022, Additional history exists HbA1c 02/16/2024 08/16/2023, 01/27, 10/28/2021, Additional history exists Albumin/Creatinine Ratio 02/22/2024 023, 10/28/2021, 01/19/2021, Additional history exists CKD PHOS USE SMARTSET 21775 02/22/202401/27, 06/21/2021, 03/22/2020, Additional history exists Diabetic Foot Exam 02/22/2024 02/21/2023, 0 10/28/2021, 09/21/2020, Additional history exists O2 ASSESSMENT COMPLETED IN PAST YEAR FOR COPD 02/22/2024 02/21/2023 B-12 08/15/2024 08/16/2023, 02/0 12/2022, 06/21/2021, Additional history exists CKD HGB USE SMARTSET 96748 08/15/202408/15, 07/05/2022, 09/28/2021, Additional history exists TSH [...] this encounter Medical Devices Implanted Type Area Bit Grinder Device Identifier Shelf Expiration Date Model / Serial / Lot Dbx 10cc [id number] - [id number] - [id number] Implanted:Qt y: 1 on 07/14/2021 by Kristian Chappell DO at [place] [facility] [place] 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 FND [id number] 01/28/2023 [id number] / [id number] / [id number] Prox Lat Humerus Plate Implanted:Qt y: 1 on 07/14/2021 by Kristian Chappell DO at [place] [facility] [place] Left: Shoulder MALLORY : ORTHOPAEDICS [id number] / / Screw Nlk A3 Ti 3.5x32mm - [id number] Implanted:Qt y: 3 on 07/14/2021 by Kristian Chappell DO at [place] [facility] [place] Left: Shoulder MALLORY : TRAUMA [id number] / / Screw Lk A3 Ti 4x40mm - [id number] Implanted:Qt y: 1 on 07/14/2021 by Kristian Chappell DO at OR [facility] [place] Left: Shoulder MALLORY : TRAUMA [id number] / / Screw Lk A3 Ti 4x55mm - [id number] Implanted:Qt y: 1 on 07/14/2021 by Kristian Chappell DO at OR [facility] [place] Left: Shoulder MALLORY : TRAUMA [id number] / / Screw Lk A3 Ti 4x30mm - [id number] Implanted:Qt y: 1 on 07/14/2021 by Kristian Chappell DO at OR [facility] [place] Left: Shoulder MALLORY : TRAUMA [id number] / / 3.5x55 Locking Screw Implanted:Qt y: 1 on 07/14/2021 by Kristian Chappell DO at OR [facility] [place] Left: Shoulder MALLORY : ORTHOPAEDICS [id number] / / documented as of this encounter Advance Directives Latest Code Status on File Code Status Date Activated Date Inactivated Comments Full Code 07/14/2021 2:48 PM 07/15/2021 12:26 AM This order reflects the patients wishes and were consensually agreed upon. Question Answer Comments Discussion of Advance Directives occurred with: Not Discussed Care Teams Services Manager Relationship Specialty Start Date End Date Kaitlin Barry MD [address] [place] [address] [place] [address] PCP - General Family Medicine 04/22/19 documented as of this encounter
--- OUTSIDE RECORDS SUMMARY | 2023-11-29 11:27 | External Medical Summary | Summary of Care ---
Author Name Unknown Organization [facility] Address [address] [place] [address] Phone [phone] Care Team Providers Care Rag Baler Name Role Phone Kaitlin Barry MD Primary Care Prov ider Reason for Visit * Reason Onset Date Comments Test Results 08/17/2023 Encounter Details Date Type Department Care Team (Late st Contact Info) Description 08/17/2023 Telephone Family [address] [phone] Kaitlin Barry MD [address] [place], [place] [address] [address] Test Results Allergies Active Allergy Reactions Criticality Noted Date Comments No Known Drug Allergy 02/09/2003 documented as of this encounter (statuses as of 08/23/2023) Medications Medication Sig Dispensed Refills Start Date End Date Status Cyanocobalamin (B-12) 1000 MCG CapsuleIndications:B 12 deficiency Take 1 Cap by mouth daily. 30 Cap 5 01/14/2016 Active Blood Glucose Monitoring Suppl ([employer] ULTRA SYSTEM) W/DEVICE KITIndications:Type 2 diabetes mellitus with hemoglobin A1c goal of less than 7.0% ([facility]) Test once a day DX:E11.9 1 Kit 0 04/12/2016 Active nitroglycerin (NITROSTAT) 0.4 MG SUBLIndications:Hot Stick Man delores ischemic heart disease one tab under tongue as needed for chest pain maximum 3 doses 25 Tab 5 08/04/2019 Active Additional Information Patient not taking.Reported on 04/17/2023 Furosemide 40 MG Oral Tablet (Lasix)Indications:C hronic systolic heart failure (HCC),STEVENSON (acute kidney injury) ([facility]) Take 2 Tabs by mouth daily. 180 Tab 3 01/19/2021 Active Additional Information Patient taking differently:80 mg Oral Daily(AM),Takes once or twice a week, Reported on 07/18/2022 Iron 28 MG Oral Tablet Take 1 Tablet by mouth in the morning. 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 30 Tablet 0 07/21/2022 Active OneTouch UltraSoft LancetsIndications:T ype 2 diabetes mellitus with hemoglobin A1c goal of less than 7.0% ([facility]) USE 1 TO CHECK GLUCOSE [...] carlos enrique cardiomyopathy,Susta ined [place] (ventricular tachycardia) ([facility]),Dyslipidemia, goal LDL below 70,Essential (primary) hypertension,Chronic systolic heart failure ([facility]) TAKE 1 TABLET BY MOUTH IN THE MORNING 90 Tablet 1 08/10/2023 Active Pantoprazole Sodium 40 MG Oral Tablet Delayed Release TAKE 1 TABLET BY MOUTH ONCE DAILY IN THE MORNING AND 1 TABLET ONCE DAILY AT BEDTIME 180 Tablet 1 08/10/2023 Active OneTouch Ultra In Vitro StripIndications:Typ e 2 diabetes mellitus with hemoglobin A1c goal of less than 7.0% ([facility]) USE 1 STRIP TO CHECK GLUCOSE TWICE DAILY FASTING AND EVENING 200 Strip 1 08/10/2023 Active documented as of this encounter (statuses as of 08/23/2023) Active Problems Problem Noted Date Diagnosed Date Chronic obstructive pulmonary disease 10/28/2021 Overview: [place] [...] mRNA, LNP-s, No Pre serve, 2-Dose Series ([employer]) 09/06/2020,08/16/2020 COVID-19, LNP-s, No Preserve , Alexander-sucrose, [...] 10/23/2023 2:00 PM EDT Office Visit Cardiology [address] [place] [address] Patrice Cheung PA-C [address] [place] [address] 11/06/2023 9:00 AM EDT Office Visit Family Medicine [address] [place] [phone] Kaitlin Barry MD [address] [place] [address] [place] [address] 12/04/2023 1:00 PM EDT Cardiac Studies Cardiology [address] [place] [address] [facility] [address] [place] [address] Health Maintenance Due Date Last Done Comments Depression Screening 12/31/2020 01/01/2020 DTaP,Tdap,and Td Vaccines (2 - Td or Tdap) 03/11/2023 03/11/2013, 12/27/2007 Diabetic Eye Exam 01/11/2024 01/10/2023, , 06/02/2021, Additional history exists GFR 02/16/2024 08/16/2023, 01/27, 07/05/2022, Additional history exists HbA1c 02/16/2024 08/16/2023, 01/27, 10/28/2021, Additional history exists Albumin/Creatinine Ratio 02/22/2024 023, 10/28/2021, 01/19/2021, Additional history exists CKD PHOS USE SMARTSET 74654 02/22/202401/27, 06/21/2021, 03/22/2020, Additional history exists Diabetic Foot Exam 02/22/2024 02/21/2023, 0 10/28/2021, 09/21/2020, Additional history exists O2 ASSESSMENT COMPLETED IN PAST YEAR FOR COPD 02/22/2024 02/21/2023 B-12 08/15/2024 08/16/2023, 02/0 12/2022, 06/21/2021, Additional history exists CKD HGB USE SMARTSET 23259 08/15/202408/15, 07/05/2022, 09/28/2021, Additional history exists TSH [...] this encounter Medical Devices Implanted Type Area Cream Dipper Device Identifier Shelf Expiration Date Model / Serial / Lot Dbx 10cc [id number] - [id number] - [id number] Implanted:Qt y: 1 on 07/14/2021 by Kristian Chappell DO at OR [facility] [place] 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 FND [id number] 01/28/2023 [id number] / [id number] / [id number] Prox Lat Humerus Plate Implanted:Qt y: 1 on 07/14/2021 by Kristian Chappell DO at OR [facility] [place] Left: Shoulder MALLORY : ORTHOPAEDICS [id number] / / Screw Nlk A3 Ti 3.5x32mm - [id number] Implanted:Qt y: 3 on 07/14/2021 by Kristian Chappell DO at OR [facility] [place] Left: Shoulder MALLORY : TRAUMA [id number] / / Screw Lk A3 Ti 4x40mm - [id number] Implanted:Qt y: 1 on 07/14/2021 by Kristian Chappell DO at OR [facility] [place] Left: Shoulder MALLORY : TRAUMA [id number] / / Screw Lk A3 Ti 4x55mm - [id number] Implanted:Qt y: 1 on 07/14/2021 by Kristian Chappell DO at OR [facility] [place] Left: Shoulder MALLORY : TRAUMA [id number] / / Screw Lk A3 Ti 4x30mm - [id number] Implanted:Qt y: 1 on 07/14/2021 by Kristian Chappell DO at OR [facility] [place] Left: Shoulder MALLORY : TRAUMA [id number] / / 3.5x55 Locking Screw Implanted:Qt y: 1 on 07/14/2021 by Kristian Chappell DO at OR [facility] [place] Left: Shoulder MALLORY : ORTHOPAEDICS [id number] / / documented as of this encounter Advance Directives Latest Code Status on File Code Status Date Activated Date Inactivated Comments Full Code 07/14/2021 2:48 PM 07/15/2021 12:26 AM This order reflects the patients wishes and were consensually agreed upon. Question Answer Comments Discussion of Advance Directives occurred with: Not Discussed Care Teams Rag Baler Relationship Specialty Start Date End Date Kaitlin Barry MD [address] [place] [address] [place] [address] PCP - General Family Medicine 04/22/19 documented as of this encounter
--- OUTSIDE RECORDS SUMMARY | 2023-11-29 11:27 | External Medical Summary | Summary of Care ---
Author Name Unknown Organization [facility] Address [address] [place] [address] Phone [phone] Care Team Providers Care Supervisor Shaving And Splitting Name Role Phone Kaitlin Barry MD Primary Care Prov ider Encounter Details Date Type Department Care Team (Late st Contact Info) Description 08/18/2023 Result Scan Unspecified Department Joanne Lakshmi Suzie, DO [address] [place] [address] <No scans attached> Allergies Active Allergy Reactions Criticality Noted Date Comments No Known Drug Allergy 02/09/2003 documented as of this encounter (statuses as of 08/18/2023) Medications Medication Sig Dispensed Refills Start Date End Date Status Cyanocobalamin (B-12) 1000 MCG CapsuleIndications:B 12 deficiency Take 1 Cap by mouth daily. 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 30 Tablet 0 07/21/2022 Active OneTouch UltraSoft LancetsIndications:T ype 2 diabetes mellitus with hemoglobin A1c goal of less than 7.0% ([facility]) USE 1 TO CHECK GLUCOSE UP TO [...] carlos enrique cardiomyopathy,Susta ined [place] (ventricular tachycardia) (HCC),Dyslipidemia, goal LDL below [...] goal of less than 7.0% ([facility]) USE 1 STRIP TO CHECK GLUCOSE TWICE DAILY FASTING AND EVENING 200 Strip 1 08/10/2023 Active documented as of this encounter (statuses as of 08/18/2023) Active Problems Problem Noted Date Diagnosed Date Chronic obstructive pulmonary disease 10/28/2021 Overview: [place] dust expossure. Former smoker. Had PFTs 2014. [...] as of this encounter (statuses as of 08/18/2023) Resolved Problems Problem Noted Date Diagnosed Date [...] as of this encounter (statuses as of 08/18/2023) Immunizations Name Administration Dates Next Due COVID-19 mRNA, LNP-s, No Pre serve, 2-Dose Series ([employer]) 09/06/2020,08/16/2020 COVID-19, LNP-s, No Preserve , Alexander-sucrose, [...] 10/23/2023 2:00 PM EDT Office Visit Cardiology [address] [place] [address] Patrice Cheung PA-C [address] [place] [address] 11/06/2023 9:00 AM EDT Office Visit Family Medicine [address] [place] [address] Kaitlin Barry MD [address] [place] [address] [place] [address] 12/04/2023 1:00 PM EDT Cardiac Studies Cardiology [address] [place] [address] Usha Marmolejo [facility] [address] [place] [address] Health Maintenance Due Date Last Done Comments Depression Screening 12/31/2020 01/01/2020 DTaP,Tdap,and Td Vaccines (2 - Td or Tdap) 03/11/2023 03/11/2013, 12/27/2007 Diabetic Eye Exam 01/11/2024 01/10/2023, , 06/02/2021, Additional history exists GFR 02/16/2024 08/16/2023, 01/27, 07/05/2022, Additional history exists HbA1c 02/16/2024 08/16/2023, 01/27, 10/28/2021, Additional history exists Albumin/Creatinine Ratio 02/22/2024 023, 10/28/2021, 01/19/2021, Additional history exists CKD PHOS USE SMARTSET 48486 02/22/202401/27, 06/21/2021, 03/22/2020, Additional history exists Diabetic Foot Exam 02/22/2024 02/21/2023, 0 10/28/2021, 09/21/2020, Additional history exists O2 ASSESSMENT COMPLETED IN PAST YEAR FOR COPD 02/22/2024 02/21/2023 B-12 08/15/2024 08/16/2023, 02/0 12/2022, 06/21/2021, Additional history exists CKD HGB USE SMARTSET 97014 08/15/202408/15, 07/05/2022, 09/28/2021, Additional history exists TSH [...] this encounter Medical Devices Implanted Type Area Food Expeditor Device Identifier Shelf Expiration Date Model / Serial / Lot Dbx 10cc [id number] - [id number] - [id number] Implanted:Qt y: 1 on 07/14/2021 by Kristian Chappell DO at OR [facility] [place] 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 FND [id number] 01/28/2023 [id number] / [id number] / [id number] Prox Lat Humerus Plate Implanted:Qt y: 1 on 07/14/2021 by Kristian Chappell DO at OR [facility] [place] Left: Shoulder MALLORY : ORTHOPAEDICS [id number] / / Screw Nlk A3 Ti 3.5x32mm - [id number] Implanted:Qt y: 3 on 07/14/2021 by Kristian Chappell DO at OR [facility] [place] Left: Shoulder MALLORY : TRAUMA [id number] / / Screw Lk A3 Ti 4x40mm - [id number] Implanted:Qt y: 1 on 07/14/2021 by Kristian Chappell DO at OR [facility] [place] Left: Shoulder MALLORY : TRAUMA [id number] / / Screw Lk A3 Ti 4x55mm - [id number] Implanted:Qt y: 1 on 07/14/2021 by Kristian Chappell DO at OR [facility] [place] Left: Shoulder MALLORY : TRAUMA [id number] / / Screw Lk A3 Ti 4x30mm - [id number] Implanted:Qt y: 1 on 07/14/2021 by Kristian Chappell DO at OR [facility] [place] Left: Shoulder MALLORY : TRAUMA [id number] / / 3.5x55 Locking Screw Implanted:Qt y: 1 on 07/14/2021 by Kristian Chappell DO at OR [facility] [place] Left: Shoulder MALLORY : ORTHOPAEDICS [id number] / / documented as of this encounter Procedures Procedure Name Priority Date/Time Associated Diagnosis Comments CARDIOLOGY SCANNED RESULT 08/18/2023 documented in this encounter Results * CARDIOLOGY SCANNED RESULT (08/18/2023) 08/18/2023 Lakshmi Suzie Zazzali DO OTHER documented in this encounter Advance Directives Latest Code Status on File Code Status Date Activated Date Inactivated Comments Full Code 07/14/2021 2:48 PM 07/15/2021 12:26 AM This order reflects the patients wishes and were consensually agreed upon. Question Answer Comments Discussion of Advance Directives occurred with: Not Discussed Care Teams Supervisor Shaving And Splitting Relationship Specialty Start Date End Date Kaitlin Barry MD [address] [place] [address] [place] [id number] PCP - General Family Medicine 04/22/19 documented as of this encounter
--- OUTSIDE RECORDS SUMMARY | 2023-11-29 11:27 | External Medical Summary ---
Author Name Unknown Address Unknown Organization K01:LABORATORY [facility] [place] - [address] [place] [address] Laboratory Report Ordering Provider Test Date Status WANDA SHAW 08/16/2023 14:01:48 Final Observation Date Value Abnormality Reference (Units ) Status WBC, Total 08/16/2023 14:01:48 7.02 4.00-10.80 (K/uL) Final RBC 08/16/2023 14:01:48 4.23 4.50-5.25 (M/uL) Final Hemoglobin 08/16/2023 14:01:48 13.6 Below low normal 14.0-16.8 (g/dL) Final HCT 08/16/2023 14:01:48 42.8 40.0-48.4 (%) Final MCV 08/16/2023 14:01:48 101.2 82.0-99.5 (fL) Final MCH 08/16/2023 14:01:48 32.2 27.0-34.0 (pg) Final MCHC 08/16/2023 14:01:48 31.8 32.0-36.0 (g/dL) Final RDW 08/16/2023 14:01:48 15.5 11.5-15.5 (%) Final Platelets 08/16/2023 14:01:48 296 140-400 (K/uL) Final MPV 08/16/2023 14:01:48 10.7 6.6-11.1 (fL) Final Nucleated erythrocytes/100 leukocytes [Ratio] in Blood by Automated count 08/16/2023 14:01:48 0 <=0 (/100 WBCs) Final Performing Location [facility]ORY [facility] [place] - [address] [place] [address]
--- OUTSIDE RECORDS SUMMARY | 2023-11-29 11:27 | External Medical Summary | Summary of Care ---
Author Name Unknown Organization [facility] Address [address] [facility] [address] Phone [phone] Care Team Providers Care Shipping Associate Name Role Phone Kaitlin Barry MD Primary Care Prov ider Reason for Visit * Reason Onset Date Comments Test Results 08/17/2023 Encounter Details Date Type Department Care Team (Late st Contact Info) Description 08/17/2023 Telephone Cardiology, [facility] [address] [place] [address] Patrice Cheung PA-C [address] [place] [address] Test Results Allergies Active Allergy Reactions Criticality Noted Date Comments No Known Drug Allergy 02/09/2003 documented as of this encounter (statuses as of 08/17/2023) Medications Medication Sig Dispensed Refills Start Date End Date Status Cyanocobalamin (B-12) 1000 MCG CapsuleIndications:B 12 deficiency Take 1 Cap by mouth daily. 30 Cap 5 01/14/2016 Active Blood Glucose Monitoring Suppl (NGI ULTRA SYSTEM) W/DEVICE KITIndications:Type 2 diabetes mellitus with hemoglobin A1c goal of less than 7.0% ([facility]) Test once a day DX:E11.9 1 Kit 0 04/12/2016 Active nitroglycerin (NITROSTAT) 0.4 MG SUBLIndications:Rehabilitation Aide delores ischemic heart disease one tab under tongue as needed for chest pain maximum 3 doses 25 Tab 5 08/04/2019 Active Additional Information Patient not taking.Reported on 04/17/2023 Furosemide 40 MG Oral Tablet (Lasix)Indications:C hronic systolic heart failure (HCC),STEVENSON (acute kidney injury) ([facility]) Take 2 Tabs by mouth [...] goal of less than 7.0% ([facility]),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 30 Tablet 0 07/21/2022 Active OneTouch UltraSoft LancetsIndications:T ype 2 diabetes mellitus with hemoglobin A1c goal of less than 7.0% ([facility]) USE 1 TO CHECK GLUCOSE [...] cardiomyopathy,Susta ined [place] (ventricular tachycardia) ([facility]),Dyslipidemia, goal LDL below 70,Essential (primary) hypertension,Chronic systolic heart failure ([facility]) TAKE 1 TABLET BY MOUTH [...] goal of less than 7.0% ([facility]) USE 1 STRIP TO CHECK GLUCOSE TWICE DAILY FASTING AND EVENING 200 Strip 1 08/10/2023 Active documented as of this encounter (statuses as of 08/17/2023) Active Problems Problem Noted Date Diagnosed Date Chronic obstructive pulmonary disease 10/28/2021 Overview: [place] dust expossure. Former smoker. Had PFTs 2014. [...] mRNA, LNP-s, No Pre serve, 2-Dose Series ([employer]) 09/06/2020,08/16/2020 COVID-19, LNP-s, No Preserve , Alexander-sucrose, Ages 12+ ([employer]) 07/05/2021 COVID-19, MRNA-LNP, 23-24, P F, [...] Encounter - Meggan Patrick CMA - 08/17/2023 4:12 PM EDT Letter mailed. * Telephone Encounter - Meggan Patrick CMA - 08/17/2023 4:11 PM EDT ----- Message from Patrice Cheung PA-C sent at 08/17/2023 7:38 AM EDT ----- Echo findings are stable, perhaps with mild improvement in function compared to prior. No overt thrombus on limited evaluation. Continue as prescribed documented in this encounter Plan of Treatment Upcoming Encounters Date Type Department Care Team (Late st Contact Info) Description 10/23/2023 2:00 PM EDT Office Visit Cardiology [address] [place] [address] Patrice Cheung PA-C [address] [place] [phone] 11/06/2023 9:00 AM EDT Office Visit Family Medicine [address] [place] [phone] Kaitlin Barry MD [address] [place] [address] [place] [address] 12/04/2023 1:00 PM EDT Cardiac Studies Cardiology [address] [place] [address] [facility] [address] [place] [address] Health Maintenance Due Date Last Done Comments Depression Screening 12/31/2020 01/01/2020 DTaP,Tdap,and Td Vaccines (2 - Td or Tdap) 03/11/2023 03/11/2013, 12/27/2007 Diabetic Eye Exam 01/11/2024 01/10/2023, , 06/02/2021, Additional history exists GFR 02/16/2024 08/16/2023, 01/27, 07/05/2022, Additional history exists HbA1c 02/16/2024 08/16/2023, 01/27, 10/28/2021, Additional history exists Albumin/Creatinine Ratio 02/22/2024 023, 10/28/2021, 01/19/2021, Additional history exists CKD PHOS USE SMARTSET 57444 02/22/202401/27, 06/21/2021, 03/22/2020, Additional history exists Diabetic Foot Exam 02/22/2024 02/21/2023, 0 10/28/2021, 09/21/2020, Additional history exists O2 ASSESSMENT COMPLETED IN PAST YEAR FOR COPD 02/22/2024 02/21/2023 B-12 08/15/2024 08/16/2023, 12/2022, 06/21/2021, Additional history exists CKD HGB USE SMARTSET 01287 08/15/202408/15, 07/05/2022, 09/28/2021, Additional history exists TSH [...] this encounter Medical Devices Implanted Type Area Sterile Process Coordinator Device Identifier Shelf Expiration Date Model / Serial / Lot Dbx 10cc [id number] - [id number] - [id number] Implanted:Qt y: 1 on 07/14/2021 by Kristian Chappell DO at [place] [facility] 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 FND [id number] 01/28/2023 [id number] / [id number] / [id number] Prox Lat Humerus Plate Implanted:Qt y: 1 on 07/14/2021 by Kristian Chappell DO at OR [facility] Left: Shoulder MALLORY : OR[employer] [id number] / / Screw Nlk A3 Ti 3.5x32mm - [id number] Implanted:Qt y: 3 on 07/14/2021 by Kristian Chappell DO at OR [facility] Left: Shoulder MALLORY : TRAUMA [id number] / / Screw Lk A3 Ti 4x40mm - [id number] Implanted:Qt y: 1 on 07/14/2021 by Kristian Chappell DO at OR [facility] Left: Shoulder MALLORY : TRAUMA [id number] / / Screw Lk A3 Ti 4x55mm - [id number] Implanted:Qt y: 1 on 07/14/2021 by Kristian Chappell DO at OR [facility] Left: Shoulder MALLORY : TRAUMA [id number] / / Screw Lk A3 Ti 4x30mm - [id number] Implanted:Qt y: 1 on 07/14/2021 by Kristian Chappell DO at OR [facility] Left: Shoulder MALLORY : TRAUMA [id number] / / 3.5x55 Locking Screw Implanted:Qt y: 1 on 07/14/2021 by Kristian Chappell DO at OR [facility] Left: Shoulder MALLORY : ORTHOPAEDICS [id number] / / documented as of this encounter Advance Directives Latest Code Status on File Code Status Date Activated Date Inactivated Comments Full Code 07/14/2021 2:48 PM 07/15/2021 12:26 AM This order reflects the patients wishes and were consensually agreed upon. Question Answer Comments Discussion of Advance Directives occurred with: Not Discussed Care Teams Shipping Associate Relationship Specialty Start Date End Date Kaitlin Barry MD [address] [place] [address] [place] [address] PCP - General Family Medicine 04/22/19 documented as of this encounter
--- OUTSIDE RECORDS SUMMARY | 2023-11-29 11:27 | External Medical Summary ---
Author Name Unknown Address Unknown Organization K01:[facility] - [address] [place] [address] Laboratory Report Ordering Provider Test Date Status WANDA SHAW 08/16/2023 14:01:48 Final Observation Date Value Abnormality Reference (Units ) Status Folic Acid 08/16/2023 14:01:48 6.4 >4.5 (ng/ mL) Final Performing Location [facility] - [address] [place] [address]
--- OUTSIDE RECORDS SUMMARY | 2023-11-29 11:27 | External Medical Summary ---
Author Name Unknown Address Unknown Organization K01:[facility] - [address] [place] [address] Laboratory Report Ordering Provider Test Date Status PAT LYNN 08/16/2023 14:01:48 Final Observation Date Value Abnormality Reference (Units ) Status TSH 08/16/2023 14:01:48 3.68 0.27-4.20 (uIU/mL) Final Performing Location [facility] - [address] [place] [address]
--- OUTSIDE RECORDS SUMMARY | 2023-11-29 11:27 | External Medical Summary | Summary of Care ---
Author Name Unknown Organization [facility] Address [address] [facility] [address] Phone [phone] Care Team Providers Care Spring Former Name Role Phone Kaitlin Barry MD Primary Care Prov ider Reason for Visit * Reason Onset Date Comments Test Results 08/17/2023 Encounter Details Date Type Department Care Team (Late st Contact Info) Description 08/17/2023 Telephone Cardiology, [facility] [address] [place] [address] Patrice Cheung PA-C [address] [place] [phone] Test Results Allergies Active Allergy Reactions Criticality Noted Date Comments No Known Drug Allergy 02/09/2003 documented as of this encounter (statuses as of 08/17/2023) Medications Medication Sig Dispensed Refills Start Date End Date Status Cyanocobalamin (B-12) 1000 MCG CapsuleIndications:B 12 deficiency Take 1 Cap by mouth daily. 30 Cap 5 01/14/2016 Active Blood Glucose Monitoring Suppl ([employer] ULTRA SYSTEM) W/DEVICE KITIndications:Type 2 diabetes mellitus with hemoglobin A1c goal of less than 7.0% ([facility]) Test once a day DX:E11.9 1 Kit 0 04/12/2016 Active nitroglycerin (NITROSTAT) 0.4 MG SUBLIndications:Examination Grader delores ischemic heart disease one tab under tongue as needed for chest pain maximum 3 doses 25 Tab 5 08/04/2019 Active Additional Information Patient not taking.Reported on 04/17/2023 Furosemide 40 MG Oral Tablet (Lasix)Indications:C hronic systolic heart failure (HCC),STEVENSON (acute kidney injury) ([facility]) Take 2 Tabs by mouth daily. 180 Tab 3 01/19/2021 Active Additional Information Patient taking differently:80 mg Oral Daily(AM),Takes once or twice a week, Reported on 07/18/2022 Iron 28 MG Oral Tablet Take 1 Tablet by mouth in the morning. 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 30 Tablet 0 07/21/2022 Active OneTouch UltraSoft LancetsIndications:T ype 2 diabetes mellitus with hemoglobin A1c goal of less than 7.0% ([facility]) USE 1 TO CHECK GLUCOSE UP TO [...] cardiomyopathy,Susta ined [place] (ventricular tachycardia) ([facility]),Dyslipidemia, goal LDL below 70,Essential (primary) hypertension,Chronic systolic heart failure ([facility]) TAKE 1 TABLET BY MOUTH IN THE MORNING 90 Tablet 1 08/10/2023 Active Pantoprazole Sodium 40 MG Oral Tablet Delayed Release TAKE 1 TABLET BY MOUTH ONCE DAILY IN THE MORNING AND 1 TABLET ONCE DAILY AT BEDTIME 180 Tablet 1 08/10/2023 Active OneTouch Ultra In Vitro StripIndications:Typ e 2 diabetes mellitus with hemoglobin A1c goal of less than 7.0% ([facility]) USE 1 STRIP TO CHECK GLUCOSE TWICE DAILY FASTING AND EVENING 200 Strip 1 08/10/2023 Active documented as of this encounter (statuses as of 08/17/2023) Active Problems Problem Noted Date Diagnosed Date Chronic obstructive pulmonary disease 10/28/2021 Overview: [place] dust expossure. Former smoker. Had PFTs 2014. 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 [...] mRNA, LNP-s, No Pre serve, 2-Dose Series ([employer]) 09/06/2020,08/16/2020 COVID-19, LNP-s, No Preserve , Alexander-sucrose, Ages 12+ ([employer]) 07/05/2021 COVID-19, MRNA-LNP, 23-24, P F, [...] 10/23/2023 2:00 PM EDT Office Visit Cardiology [address] [place] [address] Patrice Cheung PA-C [address] [place] [address] 11/06/2023 9:00 AM EDT Office Visit Family Medicine [address] [place] [phone] Kaitlin Barry MD [address] [place] [address] [place] [address] 12/04/2023 1:00 PM EDT Cardiac Studies Cardiology [address] [place] [address] [facility] [address] [place] [address] Health Maintenance Due Date Last Done Comments Depression Screening 12/31/2020 01/01/2020 DTaP,Tdap,and Td Vaccines (2 - Td or Tdap) 03/11/2023 03/11/2013, 12/27/2007 Diabetic Eye Exam 01/11/2024 01/10/2023, , 06/02/2021, Additional history exists GFR 02/16/2024 08/16/2023, 01/27, 07/05/2022, Additional history exists HbA1c 02/16/2024 08/16/2023, 01/27, 10/28/2021, Additional history exists Albumin/Creatinine Ratio 02/22/2024 023, 10/28/2021, 01/19/2021, Additional history exists CKD PHOS USE SMARTSET 12405 02/22/202401/27, 06/21/2021, 03/22/2020, Additional history exists Diabetic Foot Exam 02/22/2024 02/21/2023, 0 10/28/2021, 09/21/2020, Additional history exists O2 ASSESSMENT COMPLETED IN PAST YEAR FOR COPD 02/22/2024 02/21/2023 B-12 08/15/2024 08/16/2023, 12/2022, 06/21/2021, Additional history exists CKD HGB USE SMARTSET 70430 08/15/202408/15, 07/05/2022, 09/28/2021, Additional history exists TSH [...] encounter Medical Devices Implanted Type Area Medical Transcription Device Identifier Shelf Expiration Date Model / Serial / Lot Dbx 10cc [id number] - [id number] - [id number] Implanted:Qt y: 1 on 07/14/2021 [place] Kristian Chapp[place] DO [place] [facility] 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 FND [id number] 01/28/2023 [id number] / [id number] / [id number] Prox Lat Humerus Plate Implanted:Qt y: 1 on 07/14/2021 [place] Kristian Chapp[place] DO [place] [facility] [place]: Shoulder MALLORY : ORTH[employer] [id number] / / Screw Nlk A3 Ti 3.5x32mm - [id number] Implanted:Qt y: 3 on 07/14/2021 by Kristian Chappell DO [place] [facility] [place]: Shoulder MALLORY : TRAUMA [id number] / / Screw Lk A3 Ti 4x40mm - [id number] Implanted:Qt y: 1 on 07/14/2021 by Kristian Chappell DO [place] [facility] [place]: Shoulder MALLORY : [employer]UMA [id number] / / Screw Lk A3 Ti 4x55mm - [id number] Implanted:Qt y: 1 on 07/14/2021 by Kristian Chappell DO [place] [facility] [place]: Shoulder MALLORY : [employer]UMA [id number] / / Screw Lk A3 Ti 4x30mm - [id number] Implanted:Qt y: 1 on 07/14/2021 by Kristian Chappell DO [place] [facility] [place] Shoulder MALLORY : TRAUMA [id number] / / 3.5x55 Locking Screw Implanted:Qt y: 1 on 07/14/2021 by Kristian Chappell DO [place] [facility] [place]: Shoulder MALLORY : ORTHOPAEDICS [id number] / / documented as of this encounter Advance Directives Latest Code Status on File Code Status Date Activated Date Inactivated Comments Full Code 07/14/2021 2:48 PM 07/15/2021 12:26 AM This order reflects the patients wishes and were consensually agreed upon. Question Answer Comments Discussion of Advance Directives occurred with: Not Discussed Care Teams Spring Former Relationship Specialty Start Date End Date Kaitlin Barry MD [address] [place] [address] [place] [address] PCP - General Family Medicine 04/22/19 documented as of this encounter
--- OUTSIDE RECORDS SUMMARY | 2023-11-29 11:27 | External Medical Summary | Summary of Care ---
Author Name Unknown Organization [facility] Address [address] [place] [address] Phone [phone] Care Team Providers Care Relief Captain Name Role Phone Valeria Martinez MD Primary Care Prov ider Reason for Visit * Reason Comments eRx-Medication Refill Encounter Details Date Type Department Care Team (Late st Contact Info) Description 08/08/2023 Refill Family [address] [address] Valeria Martinez MD [address] [place], [place] [address] [address] Diabetes mellitus with stage 3 chronic kidney disease ([facility]); Ischemic cardiomyopathy; Sustained VT (ventricular tachycardia) ([facility]); Dyslipidemia, goal LDL below 70; Essential (primary) hypertension; Chronic systolic heart failure ([facility]); Type 2 diabetes mellitus with hemoglobin A1c goal of less than 7.0% ([facility]) Allergies Active Allergy Reactions Criticality Noted Date Comments No Known Drug Allergy 02/09/2003 documented as of this encounter (statuses as of 08/10/2023) Medications Medication Sig Dispensed Refills Start Date End Date Status Cyanocobalamin (B-12) 1000 MCG CapsuleIndications: B12 deficiency Take 1 Cap by mouth daily. 30 Cap 5 6 Active Blood Glucose Monitoring Suppl (Furnish.co.ukUCH ULTRA SYSTEM) W/DEVICE KITIndications:Type 2 diabetes mellitus with hemoglobin A1c goal of less than 7.0% ([facility]) Test once a day DX:E11.9 1 Kit 0 6 Active nitroglycerin (NITROSTAT) 0.4 MG SUBLIndications:Chr onic ischemic heart disease one tab under tongue as needed for chest pain maximum 3 doses 25 Tab 5 0 Active Additional Information Patient not taking.Reported on 04/17/2023 Furosemide 40 MG Oral Tablet (Lasix)Indications: Chronic systolic heart failure ([facility]),[place] (acute kidney injury) ([facility]) Take 2 Tabs by mouth daily. 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 30 Tablet 0 3 Active OneTouch UltraSoft LancetsIndications: Type 2 diabetes mellitus with hemoglobin A1c goal of less than 7.0% ([facility]) USE 1 TO CHECK GLUCOSE UP TO [...] AND EVENING 200 Strip 1 4 Active OneTouch Ultra In Vitro StripIndications:Ty pe 2 diabetes mellitus with hemoglobin A1c goal of less than 7.0% (HCC) USE 1 STRIP TO CHECK GLUCOSE TWICE DAILY FASTING AND EVENING 200 Strip 3 08/10/19 24 Discontinued Metoprolol Succinate ER [...] as of this encounter (statuses as of 08/10/2023) Active Problems Problem Noted Date Diagnosed Date Chronic obstructive pulmonary disease 10/28/2021 Overview: [place] dust expossure. Former smoker. Had PFTs 2014. 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 symp toms documented as of this encounter (statuses as of 08/10/2023) Resolved Problems Problem Noted Date Diagnosed Date [...] as of this encounter (statuses as of 08/10/2023) Immunizations Name Administration Dates Next Due COVID-19 mRNA, LNP-s, No Pre serve, 2-Dose Series (Jott) 09/06/2020,08/16/2020 COVID-19, LNP-s, No Preserve , Alexander-sucrose, [...] encounter Miscellaneous Notes * Telephone Encounter - Sebastián Rees [facility] - 08/10/2023 11:42 AM EDT Signed Prescriptions: Disp Refills metFORMIN HCl 1000 MG Oral Tablet 180 Ta*1 Sig: Take 1 tablet by mouth twice dailyAuthorizing Provider: VALERIA MARTINEZ User: SEBASTIÁN REES Metoprolol Succinate ER 100 MG Oral Tablet*90 Tab*1 Sig: TAKE 1 TABLET BY MOUTH IN THE MORNINGAuthorizing Provider: VALERIA MARTINEZ User: SEBASTIÁN REES PantoprazoleSodium 40 MG Oral Tablet Breann*180 Ta*1 Sig: TAKE 1 TABLET BY MOUTH ONCE DAILY IN THE MORNING AND 1 TABLET ONCE DAILY AT BEDTIMEAuthorizing Provider: VALERIA MARTINEZ User: SEBASTIÁN REES OneTouch Ultra In Vitro Strip 200 St*1 Sig: USE 1 STRIP TO CHECK GLUCOSE TWICE DAILY FASTING AND EVENINGAuthorizing Provider: VALERIA MARTINEZ User: SEBASTIÁN REES SE documented in this encounter Plan of Treatment Upcoming Encounters Date Type Department Care Team (Late st Contact Info) Description 08/16/2023 1:30 PM EDT Cardiac Studies Cardiac Studies [address] [place] [address] 10/23/2023 2:00 PM EDT Office Visit Cardiology [address] [place] [address] Patrice Cheung PA-C [address] [place] [address] 11/06/2023 9:00 AM EDT Office Visit Family Medicine [address] [place] [phone] Valeria Martinez MD [address] [place] [address] [place] [address] 12/04/2023 1:00 PM EDT Cardiac Studies Cardiology [address] [place] [address] [facility] [address] [facility] [place] [address] Health Maintenance Due Date Last Done Comments Depression Screening 12/31/2020 01/01/2020 DTaP,Tdap,and Td Vaccines (2 - Td or Tdap) 03/11/2023 03/11/2013, 12/27/2007 B-12 07/05/2023 07/05/2022, 05/29, 02/23/2020, Additional history exists CKD HGB USE SMARTSET 80283 07/05/202307/05, 09/28/2021, 09/28/2021, Additional history exists GFR 08/22/2023 02/21/2023, 02/0 12/2022, 09/28/2021, Additional history exists HbA1c 08/22/2023 02/21/2023, 06/0 07/2021, 06/21/2021, Additional history exists Diabetic Eye Exam 01/11/2024 01/10/2023, , 06/02/2021, Additional history exists Albumin/Creatinine Ratio 02/22/2024 023, 10/28/2021, 01/19/2021, Additional history exists CKD PHOS USE SMARTSET 68439 02/22/202401/27, 06/21/2021, 03/22/2020, Additional history exists Diabetic Foot Exam 02/22/2024 02/21/2023, 0 10/28/2021, 09/21/2020, Additional history exists O2 ASSESSMENT COMPLETED IN PAST YEAR FOR COPD 02/22/2024 02/21/2023 TSH 02/22/2024 02/21/2023, 12/2022, 09/28/2021, Additional history exists Pneumococcal Vaccine: [...] this encounter Medical Devices Implanted Type Area Biology Manager Device Identifier Shelf Expiration Date Model / Serial / Lot Dbx 10cc [id number] - [id number] - [id number] Implanted:Qt y: 1 on 07/14/2021 by Kristian Chappell DO at OR [facility] [place] 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 FND [id number] 01/28/2023 [id number] / [id number] / [id number] Prox Lat Humerus Plate Implanted:Qt y: 1 on 07/14/2021 by Kristian Chappell DO at OR [facility] – [place] Left: Shoulder MALLORY : ORTHOPAEDICS [id number] / / Screw Nlk A3 Ti 3.5x32mm - [id number] Implanted:Qt y: 3 on 07/14/2021 by Kristian Chappell DO at OR [facility] [place] Left: Shoulder MALLORY : TRAUMA [id number] / / Screw Lk A3 Ti 4x40mm - [id number] Implanted:Qt y: 1 on 07/14/2021 by Kristian Chappell DO OR [facility] [place] Left: Shoulder MALLORY : TRAUMA [id number] / / Screw Lk A3 Ti 4x55mm - [id number] Implanted:Qt y: 1 on 07/14/2021 by Kristian Chappell DO at OR [facility] [place] Left: Shoulder MALLORY : TRAUMA [id number] / / Screw Lk A3 Ti 4x30mm - [id number] Implanted:Qt y: 1 on 07/14/2021 by Kristian Chappell DO at OR [facility] [place] Left: Shoulder MALLORY : TRAUMA [id number] / / 3.5x55 Locking Screw Implanted:Qt y: 1 on 07/14/2021 by Kristian Chappell DO at OR [facility] [place] Left: Shoulder MALLORY : ORTHOPAEDICS [id number] / / documented as of this encounter Visit Diagnoses Diagnosis 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) Type II or unspecified type diabetes mellitus with renal manifestations, not stated as uncontrolled Ischemic cardiomyopathy Other specified forms of chronic ischemic heart disease Sustained VT (ventricular tachycardia) (HCC) Paroxysmal ventricular tachycardia Dyslipidemia, goal LDL below 70 Other and unspecified hyperlipidemia Essential (primary) hypertension Unspecified essential hypertension Chronic systolic heart failure (HCC) Chronic systolic heart failure Type 2 diabetes mellitus with hemoglobin A1c goal of less than 7.0% (HCC) documented in this encounter Advance Directives Latest Code Status on File Code Status Date Activated Date Inactivated Comments Full Code 07/14/2021 2:48 PM 07/15/2021 12:26 AM This order reflects the patients wishes and were consensually agreed upon. Question Answer Comments Discussion of Advance Directives occurred with: Not Discussed Care Teams Relief Captain Relationship Specialty Start Date End Date Valeria Martinez MD [address] [place] [address] [place] [address] PCP - General Family Medicine 04/22/19 documented as of this encounter
--- OUTSIDE RECORDS SUMMARY | 2023-11-29 11:27 | External Medical Summary ---
Author Name Unknown Address Unknown Organization [id number]:LABORATORY [facility] [place] - [address] [place] [address] Laboratory Report Ordering Provider Test Date Status WANDA SHAW 08/16/2023 14:01:48 Final Observation Date Value Abnormality Reference (Units ) Status HbA1C 08/16/2023 14:01:48 5.7 Above high normal 4. 0-5.6 (%) Final The use of HbA1c to monitor glycemic status is based on normal hemoglobin and HbA composition. This test should not be used in patients with abnormal hemoglobin that affects the half life of the red blood cell or the in vivo glycation rates. Glucose, estimated average 08/16/2023 14:01:48 117 <126 (mg/dL) Final Performing Location LABORATORY [facility] - [address] [place] [address]
--- OUTSIDE RECORDS SUMMARY | 2023-11-29 11:27 | External Medical Summary ---
Author Name Unknown Address Unknown Organization [id number]:[facility] [place] [address] [facility] [address] [place] [address] Laboratory Report Ordering Provider Test Date Status WANDA SHAW 08/16/2023 14:01:48 Final Observation Date Value Abnormality Reference (Units ) Status BUN 08/16/2023 14:01:48 17 6-20 (mg/dL) Final Creatinine 08/16/2023 14:01:48 1.1 0.6-1.2 (mg/dL) Final Glomerular filtration rate/1.73 sq M.predicted [Volume Rate/Area] in Serum, Plasma or Blood by Creatinine-based formula (CKD-EPI) 08/16/2023 14:01:48 69 >=60 (mL/min) Final eGFR is calculated based on the CKD-EPI 2020 equation Sodium 08/16/2023 14:01:48 141 135-146 (m mol/L) Final Potassium 08/16/2023 14:01:48 5.4 Above high normal 3. 5-5.1 (mmol/L) Final Cl 08/16/2023 14:01:48 106 98-107 (mm ol/L) Final CO2 08/16/2023 14:01:48 28 22-32 (mmo l/L) Final Anion gap 08/16/2023 14:01:48 7 7-15 (mmol /L) Final Glucose 08/16/2023 14:01:48 101 70-120 (mg /dL) Final Albumin 08/16/2023 14:01:48 2.8 Below low normal 3.8 -5.0 (g/dL) Final AST (Aspartate aminotransferase) 08/16/2023 14:01:48 19 10-50 (U/L) Fin al Alk Phos 08/16/2023 14:01:48 104 35-130 (U/ L) Final Bilirubin, Total 08/16/2023 14:01:48 <0.2 <=1 .2 (mg/dL) Final Calcium 08/16/2023 14:01:48 8.5 8.4-10.2 ( mg/dL) Final Protein 08/16/2023 14:01:48 5.3 Below low normal 6.0 -8.3 (g/dL) Final ALT (Alanine aminotransferase) 08/16/2023 14:01:48 12 10-50 (U/L) Kevan gilliland Performing Location [facility] [place] [facility] [address]. [facility] [address]
--- OUTSIDE RECORDS SUMMARY | 2023-11-29 11:27 | External Medical Summary | Summary of Care ---
Author Name Unknown Organization [facility] Address [address] [place] [address] Phone [phone] Care Team Providers Care Soft Iron Inspector Name Role Phone Kaitlin Barry MD Primary Care Prov ider Encounter Details Date Type Department Care Team (Late st Contact Info) Description 10/22/2023 Result Scan Unspecified Department Joanne Lakshmi Suzie, DO [address] [place] [address] <No scans attached> Allergies Active Allergy Reactions Criticality Noted Date Comments No Known Drug Allergy 02/09/2003 documented as of this encounter (statuses as of 10/22/2023) Medications Medication Sig Dispensed Refills Start Date End Date Status Cyanocobalamin (B-12) 1000 MCG CapsuleIndications:B 12 deficiency Take 1 Cap by mouth daily. 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 30 Tablet 07/21/2022 Active OneTouch UltraSoft LancetsIndications:T ype 2 diabetes mellitus with hemoglobin A1c goal of less than 7.0% ([facility]) USE 1 TO CHECK GLUCOSE [...] A1c goal of less than 7.0% ([facility]) USE 1 STRIP TO CHECK GLUCOSE TWICE DAILY FASTING AND EVENING 200 Strip 1 08/10/2023 Active documented as of this encounter (statuses as of 10/22/2023) Active Problems Problem Noted Date Diagnosed Date Chronic obstructive pulmonary disease 10/28/2021 Overview: [place] dust expossure. Former smoker. Had PFTs 2014. [...] of inactive term GENERAL OSTEOARTHROSIS 05/01/2001 [place] (myocardial infarction) BPH without obstruction/lower urinary tract symp toms documented as of this encounter (statuses as of 10/22/2023) Resolved Problems Problem Noted Date Diagnosed Date [...] as of this encounter (statuses as of 10/22/2023) Immunizations Name Administration Dates Next Due COVID-19 mRNA, LNP-s, No Pre serve, 2-Dose Series ([employer] [place]) 09/06/2020,08/16/2020 COVID-19, LNP-s, No Preserve , Alexander-sucrose, Ages 12+ (Pfizer) 07/05/2021 COVID-19, MRNA-LNP, 23-24, P F, 30 MCG/0.3 mL, 12 YRS AND ABOVE, IM ([employer]-Comirnat) 04/17/2023 Pneumococcal Conjugate Vacc, 13 Valent (Prevnar) [...] 10/23/2023 2:00 PM EDT Office Visit Cardiology [address] [place] [address] Patrice Cheung PA-C [address] [place] [address] 11/06/2023 9:00 AM EDT Office Visit Family Medicine [address] [place] [phone] Kaitlin Barry MD [address] [place] [address] [place] [address] 12/04/2023 1:00 PM EDT Cardiac Studies Cardiology [address] [place] [address] Usha Marmolejo [facility] [address] [place] [address] Health Maintenance Due Date Last Done Comments [...] Additional history exists CKD PHOS USE SMARTSET 46174 02/22/202401/27, 06/21/2021, 03/22/2020, Additional history exists Diabetic Foot Exam 02/22/2024 02/21/2023, 0 10/28/2021, 09/21/2020, Additional history exists O2 ASSESSMENT COMPLETED IN PAST YEAR FOR COPD 02/22/2024 02/21/2023 B-12 08/15/2024 08/16/2023, 02/0 12/2022, 06/21/2021, Additional history exists CKD HGB USE SMARTSET 81926 08/15/202408/15, 07/05/2022, 09/28/2021, Additional history exists TSH [...] this encounter Medical Devices Implanted Type Area Aerobics Teacher Device Identifier Shelf Expiration Date Model / Serial / Lot Dbx 10cc [id number] - [id number] - [id number] Implanted:Qt y: 1 on 07/14/2021 by Kristian Chappell [place] [facility] 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 FND [id number] 01/28/2023 [id number] / [id number] / [id number] Prox Lat Humerus Plate Implanted:Qt y: 1 on 07/14/2021 by Kristian Chappell DO [place] [facility] [place]: Shoulder MALLORY : ORTHOPAEDICS [id number] / / Screw Nlk A3 Ti 3.5x32mm - [id number] Implanted:Qt y: 3 on 07/14/2021 by Kristian Chappell DO [place] [facility] [place]: Shoulder MALLORY : TRAUMA [id number] / / Screw Lk A3 Ti 4x40mm - [id number] Implanted:Qt y: 1 on 07/14/2021 by Kristian Chappell DO [place] [facility] [place]: Shoulder MALLORY : TRAUMA [id number] / / Screw Lk A3 Ti 4x55mm - [id number] Implanted:Qt y: 1 on 07/14/2021 by Kristian Chappell DO [place] [facility] [place]: Shoulder MALLORY : TRAUMA [id number] / / Screw Lk A3 Ti 4x30mm - [id number] Implanted:Qt y: 1 on 07/14/2021 by Kristian Chappell DO [place] [facility] [place]: Shoulder MALLORY : TRAUMA [id number] / / 3.5x55 Locking Screw Implanted:Qt y: 1 on 07/14/2021 by Kristian Chappell DO [place] [facility] [place] Shoulder MALLORY : ORTHOPAEDICS [id number] / / documented as of this encounter Procedures Procedure Name Priority Date/Time Associated Diagnosis Comments CARDIOLOGY SCANNED RESULT 10/22/2023 documented in this encounter Results * CARDIOLOGY SCANNED RESULT (10/22/2023) 10/22/2023 Lakshmi Rubio DO OTHER documented in this encounter Advance Directives * Full Code (Latest Code Status on File) Date Activated Date Inactivated Comments 07/14/2021 2:48 PM 07/15/2021 12:26 AM This order reflects the patients wishes and were consensually agreed upon. Question Answer Comments Discussion of Advance Directives occurred with: Not Discussed Care Teams Soft Iron Inspector Relationship Specialty Start Date End Date Kaitlin Barry MD [address] [place] [address] [place] [address] PCP - General Family Medicine 04/22/19 documented as of this encounter
--- OUTSIDE RECORDS SUMMARY | 2023-11-29 11:27 | External Medical Summary ---
Author Name Unknown Address Unknown Organization K01:[place] [facility] [place] [address] [place] [address] Laboratory Report Ordering Provider Test Date Status WANDA SHAW 08/16/2023 14:01:48 Final Observation Date Value Abnormality Reference (Units ) Status Vitamin B12 08/16/2023 14:01:48 [phone] (pg/mL) Final Performing Location LABORATORY [facility] - [address] [place] [address]
--- OUTSIDE RECORDS SUMMARY | 2023-11-29 11:28 | External Medical Summary | Summary of Care ---
Author Name Unknown Organization [facility] Address [address] [place] [address] Phone [phone] Care Team Providers Care Cesspool Cleaner Name Role Phone Kaitlin Barry MD Primary Care Prov ider Reason for Visit * Reason Onset Date Comments Health Maintenance 08/08/2023 Encounter Details Date Type Department Care Team (Late st Contact Info) Description 08/08/2023 Telephone Family [address] [phone] Kaitlin Barry MD [address] [place], [place] [address] [address] Health Maintenance Allergies Active Allergy Reactions Criticality Noted Date Comments No Known Drug Allergy 02/09/2003 documented as of this encounter (statuses as of 08/08/2023) Medications Medication Sig Dispensed Refills Start Date End Date Status Cyanocobalamin (B-12) 1000 MCG CapsuleIndications:B 12 deficiency Take 1 Cap by mouth daily. 30 Cap 5 01/14/2016 Active Blood Glucose Monitoring Suppl (Rubysophic ULTRA SYSTEM) W/DEVICE KITIndications:Type 2 diabetes mellitus with hemoglobin A1c goal of less than 7.0% ([facility]) Test once a day DX:E11.9 1 Kit 0 04/12/2016 Active nitroglycerin (NITROSTAT) 0.4 MG SUBLIndications:Mosaic Tiler delores ischemic heart disease one tab under tongue as needed for chest pain maximum 3 doses 25 Tab 5 08/04/2019 Active Additional Information Patient not taking.Reported on 04/17/2023 Furosemide 40 MG Oral Tablet (Lasix)Indications:C hronic systolic heart failure ([facility]),STEVENSON (acute kidney injury) ([facility]) Take 2 Tabs by mouth daily. 180 Tab 3 01/19/2021 Active Additional Information Patient taking differently:80 mg Oral Daily(AM),Takes once or twice a week, Reported on 07/18/2022 Iron 28 MG Oral Tablet Take 1 Tablet by mouth in the morning. 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 30 Tablet 0 07/21/2022 Active Blend Therapeuticsuch UltraSoft LancetsIndications:T ype 2 diabetes mellitus with hemoglobin A1c goal of less than 7.0% ([facility]) USE 1 TO CHECK GLUCOSE UP TO 4 TIMES DAILY DIRECTED E11.9 400 Each 3 07/21/2022 Active Ventolin HFA 108 (90 Base) MCG/ACT Inhalation Aerosol SolutionIndications: Pneumonia of left lower lobe due to infectious organism Inhale 2 Puffs by mouth every 4 hours as needed for Cough, Shortness of Breath or Wheezing. 18 g 1 10/18/2022 Active Paragon 28Touch Ultra In Vitro StripIndications:Typ e 2 diabetes mellitus with hemoglobin A1c goal of less than 7.0% ([facility]) USE 1 STRIP TO CHECK GLUCOSE [...] carlos enrique cardiomyopathy,Susta ined VT (ventricular tachycardia) ([facility]),Dyslipidemia, goal LDL below 70,Essential (primary) hypertension,Chronic systolic heart failure ([facility]) TAKE 1 TABLET BY MOUTH IN [...] as of this encounter (statuses as of 08/08/2023) Active Problems Problem Noted Date Diagnosed Date Chronic obstructive pulmonary disease 10/28/2021 Overview: [place] dust expossure. Former smoker. Had PFTs 2014. [...] of inactive term GENERAL OSTEOARTHROSIS 05/01/2001 [place] (myocardial infarction) BPH without obstruction/lower urinary tract symp toms documented as of this encounter (statuses as of 08/08/2023) Resolved Problems Problem Noted Date Diagnosed Date [...] as of this encounter (statuses as of 08/08/2023) Immunizations Name Administration Dates Next Due COVID-19 mRNA, LNP-s, No Pre serve, 2-Dose Series ([place]) 09/06/2020,08/16/2020 COVID-19, LNP-s, No Preserve , Alexander-sucrose, [...] encounter Miscellaneous Notes * Telephone Encounter - Emily Hampton LPN [...] or Tdap) 03/11/2023 CKD HGB USE SMARTSET 05869 07/05/2023 B-12 07/05/2023 HbA1c 08/22/2023 GFR 08/22/2023 Diabetic Eye Exam 01/11/2024 Albumin/Creatinine Ratio 02/22/2024 Diabetic Foot Exam 02/22/2024 CKD PHOS USE SMARTSET 44667 02/22/2024 O2 ASSESSMENT COMPLETED IN PAST YEAR FOR COPD 02/22/2024 TSH 02/22/2024 Ov scheduled Labs ordered will walk in Care Gap Outreach Action Taken: Spoke to patient documented in this encounter Plan of Treatment Upcoming Encounters Date Type Department Care Team (Late st Contact Info) Description 08/16/2023 1:30 PM EDT Cardiac Studies Cardiac Studies [address] [place] [address] 10/23/2023 2:00 PM EDT Office Visit Cardiology [address] [place] [address] Patrice Cheung PA-C [address] [place] [address] 11/06/2023 9:00 AM EDT Office Visit Family Medicine [address] [place] [phone] Kaitlin Barry MD [address] [place] [address] [place] [address] 12/04/2023 1:00 PM EDT Cardiac Studies Cardiology [address] [place] [address] Usha Marmolejo [facility] [address] [place] [address] Scheduled Orders Name Type Priority Associated Diagnoses Orde r Schedule CBC Lab Routine Chronic kidney disease, unspecified CKD stage Expected: 08/08/2023, Expires: 08/07/2024 COMPREHENSIVE METABOLIC PANEL Lab Routine Chronic kidney disease, unspecified CKD stage Expected: 08/08/2023, Expires: 08/07/2024 HEMOGLOBIN A1C Lab Routine 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) Expected: 08/08/2023, Expires: 08/07/2024 VITAMIN B12 Lab Routine On local company intermodal truck driver drug therapy Expected: 08/08/2023, Expires: 08/07/2024 Health Maintenance Due Date Last Done Comments Depression Screening 12/31/2020 01/01/2020 DTaP,Tdap,and Td Vaccines (2 - Td or Tdap) 03/11/2023 03/11/2013, 12/27/2007 B-12 07/05/2023 07/05/2022, 05/29, 02/23/2020, Additional history exists CKD HGB USE SMARTSET 19162 07/05/202307/05, 09/28/2021, 09/28/2021, Additional history exists GFR 08/22/2023 02/21/2023, 02/0 12/2022, 09/28/2021, Additional history exists HbA1c 08/22/2023 02/21/2023, 06/0 07/2021, 06/21/2021, Additional history exists Diabetic Eye Exam 01/11/2024 01/10/2023, , 06/02/2021, Additional history exists Albumin/Creatinine Ratio 02/22/2024 023, 10/28/2021, 01/19/2021, Additional history exists CKD PHOS USE SMARTSET 25869 02/22/202401/27, 06/21/2021, 03/22/2020, Additional history exists Diabetic [...] this encounter Medical Devices Implanted Type Area Gas Engine Operator Compressors Device Identifier Shelf Expiration Date Model / Serial / Lot Dbx 10cc [id number] - [id number] - [id number] Implanted:Qt y: 1 on 07/14/2021 by Kristian Chappell DO at OR [facility] 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 FND [id number] 01/28/2023 [id number] / [id number] / [id number] Prox Lat Humerus Plate Implanted:Qt y: 1 on 07/14/2021 by Kristian Chappell DO at OR [facility] Left: Shoulder MALLORY : ORTHOPAEDICS [id number] / / Screw Nlk A3 Ti 3.5x32mm - [id number] Implanted:Qt y: 3 on 07/14/2021 by Kristian Chappell DO OR [facility] Left: Shoulder MALLORY : TRAUMA [id number] / / Screw Lk A3 Ti 4x40mm - [id number] Implanted:Qt y: 1 on 07/14/2021 by Kristian Chappell DO at OR [facility] Left: Shoulder MALLORY : TRAUMA [id number] / / Screw Lk A3 Ti 4x55mm - [id number] Implanted:Qt y: 1 on 07/14/2021 by Kristian Chappell DO OR [facility] Left: Shoulder MALLORY : TRAUMA [id number] / / Screw Lk A3 Ti 4x30mm - [id number] Implanted:Qt y: 1 on 07/14/2021 by Kristian Chappell DO OR [facility] Left: Shoulder MALLORY : TRAUMA [id number] / / 3.5x55 Locking Screw Implanted:Qt y: 1 on 07/14/2021 by Kristian Chappell DO at OR [facility] Left: Shoulder MALLORY : ORTHOPAEDICS [id number] / / documented as of this encounter Visit Diagnoses Diagnosis Diabetes mellitus screening- Primary Screening for diabetes mellitus On mcc drug therapy Chronic kidney disease, unspecified CKD stage 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) Type II or unspecified type diabetes mellitus with renal manifestations, not stated as uncontrolled documented in this encounter Advance Directives Latest Code Status on File Code Status Date Activated Date Inactivated Comments Full Code 07/14/2021 2:48 PM 07/15/2021 12:26 AM This order reflects the patients wishes and were consensually agreed upon. Question Answer Comments Discussion of Advance Directives occurred with: Not Discussed Care Teams Cesspool Cleaner Relationship Specialty Start Date End Date Kaitlin Barry MD [address] [place] [address] [place] [address] PCP - General Family Medicine 04/22/19 documented as of this encounter
--- OUTSIDE RECORDS SUMMARY | 2023-11-29 11:28 | External Medical Summary | Summary of Care ---
Author Name Unknown Organization [facility] Address [address] [facility] [place] [address] Phone [phone] Care Team Providers Care Therapeutic Strategy Lead Name Role Phone Kaitlin Barry MD Primary Care Prov ider Reason for Visit * Reason Onset Date Comments Appointment 07/05/2023 [facility] appointment Encounter Details Date Type Department Care Team (Late st Contact Info) Description 07/05/2023 Telephone Cardiology, [facility] [address] [facility] [place] [address] [place] [address] [place] [address] Appointment ([facility] appointment ) Allergies Active Allergy Reactions Criticality Noted Date Comments No Known Drug Allergy 02/09/2003 documented as of this encounter (statuses as of 07/05/2023) Medications Medication Sig Dispensed Refills Start Date End Date Status Cyanocobalamin (B-12) 1000 MCG CapsuleIndications:B 12 deficiency Take 1 Cap by mouth daily. 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 30 Tablet 0 07/21/2022 Active OneTouch UltraSoft LancetsIndications:T ype 2 diabetes mellitus with hemoglobin A1c goal of less than 7.0% ([facility]) USE 1 TO CHECK GLUCOSE UP TO 4 TIMES DAILY DIRECTED E11.9 400 Each 3 07/21/2022 Active Atorvastatin Calcium 40 MG Oral Tablet (Lipitor)Indications :Dyslipidemia, goal LDL below 70,Chronic ischemic heart disease,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) Take 1 Tablet by mouth in the morning. 90 Tablet 3 08/21/2022 Active Isosorbide Mononitrate ER 30 MG Oral Tablet Extended Release 24 Hour (Imdur)Indications:C hronic systolic heart failure (HCC),Sustained VT (ventricular tachycardia) (HCC),Dyslipidemia, goal LDL below 70,Ischemic cardiomyopathy,Essen tial (primary) hypertension TAKE 1 TABLET BY MOUTH ONCE DAILY IN THE MORNING 90 Tablet 3 08/21/2022 Active Ventolin HFA 108 (90 Base) MCG/ACT Inhalation Aerosol SolutionIndications: Pneumonia of left lower lobe due to infectious organism Inhale 2 Puffs by mouth every 4 hours as needed for Cough, Shortness of Breath or Wheezing. 18 g 1 10/18/2022 Active OneTouch Ultra In Vitro StripIndications:Typ e 2 diabetes mellitus with hemoglobin A1c goal of less than 7.0% ([facility]) USE 1 STRIP TO CHECK [...] OTHER MEDS 90 Tablet 3 05/23/2023 Active documented as of this encounter (statuses as of 07/05/2023) Active Problems Problem Noted Date Diagnosed Date Chronic obstructive pulmonary disease 10/28/2021 Overview: [place] dust expossure. Former smoker. Had PFTs 2014. [...] as of this encounter (statuses as of 07/05/2023) Resolved Problems Problem Noted Date Diagnosed Date [...] as of this encounter (statuses as of 07/05/2023) Immunizations Name Administration Dates Next Due COVID-19 mRNA, LNP-s, No Pre serve, 2-Dose Series (FromUs) 09/06/2020,08/16/2020 COVID-19, LNP-s, No Preserve , Alexander-sucrose, [...] encounter Miscellaneous Notes * Telephone Encounter - Marie Dent LPN - 07/05/2023 2:39 PM EST Left message on patient's voicemail. Patient scheduled for [facility] in [place] 07/10/2023. [place] [facility] is 07/24/2023. Patient needs rescheduled to come 07/24 or 08/22 documented in this encounter Plan of Treatment Upcoming Encounters Date Type Department Care Team (Late st Contact Info) Description 07/10/2023 1:30 PM EST Cardiac Studies Cardiology [address] [place] [address] Usha Marmolejo [address] [place] [address] 08/16/2023 1:30 PM EDT Cardiac Studies Cardiac Studies [address] [place] [address] 10/23/2023 2:00 PM EDT Office Visit Cardiology [address] [place] [address] Patrice Cheung PA-C [address] [place] [address] 12/04/2023 1:00 PM EDT Cardiac Studies Cardiology [address] [place] [address] Usha Marmolejo [facility] [address] [place] [address] Health Maintenance Due Date Last Done Comments Hepatitis B (1 of 3 - Risk 3-dose series) 2001 Depression Screening 12/31/2020 01/01/2020 DTaP,Tdap,and Td Vaccines (2 - Td or Tdap) 03/11/2023 03/11/2013, 12/27/2007 B-12 07/05/2023 07/05/2022, 05/29, 02/23/2020, Additional history exists CKD HGB USE SMARTSET 75573 07/05/202307/05, 09/28/2021, 09/28/2021, Additional history exists GFR 08/22/2023 02/21/2023, 02/0 12/2022, 09/28/2021, Additional history exists HbA1c 08/22/2023 02/21/2023, 06/0 07/2021, 06/21/2021, Additional history exists Diabetic Eye Exam 01/11/2024 01/10/2023, , 06/02/2021, Additional history exists Albumin/Creatinine Ratio 02/22/2024 023, 10/28/2021, 01/19/2021, Additional history exists CKD PHOS USE SMARTSET 08471 02/22/202401/27, 06/21/2021, 03/22/2020, Additional history exists Diabetic [...] this encounter Medical Devices Implanted Type Area Wood Pile Driver Operator Device Identifier Shelf Expiration Date Model / Serial / Lot Dbx 10cc [id number] - [id number] - [id number] Implanted:Qt y: 1 on 07/14/2021 by Kristian Chappell DO [place] [facility] 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 FND [id number] 01/28/2023 [id number] / [id number] / [id number] 3.5x55 Locking Screw Implanted:Qt y: 1 on 07/14/2021 by Kristian Chappell DO at [place] [facility] Left: Shoulder MALLORY : ORTHOPAEDICS [id number] / / documented as of this encounter Advance Directives Latest Code Status on File Code Status Date Activated Date Inactivated Comments Full Code 07/14/2021 2:48 PM 07/15/2021 12:26 AM This order reflects the patients wishes and were consensually agreed upon. Question Answer Comments Discussion of Advance Directives occurred with: Not Discussed Care Teams Therapeutic Strategy Lead Relationship Specialty Start Date End Date Kaitlin Barry MD [address] [place] [address] [place] [address] PCP - General Family Medicine 04/22/19 documented as of this encounter
--- OUTSIDE RECORDS SUMMARY | 2023-11-29 11:28 | External Medical Summary | Summary of Care ---
Author Name Unknown Organization [facility] Address [address] [place] [facility] [place] [place] [address] Phone [phone] Care Team Providers Care Marine Animal Trainer Name Role Phone Kaitlin Barry MD Primary Care Prov ider Reason for Visit * Reason Comments Def[facility] Clinic Encounter Details Date Type Department Care Team (Latest Contact Info) Description 07/24/2023 11:15 AM EST Cardiac Studies Cardiology [address] [place] [address] [place] [address] [place] [address] Sustained VT (ventricular tachycardia) (HCC)*; Ischemic cardiomyopathy; Chronic systolic heart failure (HCC); Presence of automatic cardioverter/defibri llator (AICD) Allergies Active Allergy Reactions Criticality Noted Date Comments No Known Drug Allergy 02/09/2003 documented as of this encounter (statuses as of 07/25/2023) Medications Medication Sig Dispensed Refills Start Date End Date Status Cyanocobalamin (B-12) 1000 MCG CapsuleIndications:B 12 deficiency Take 1 Cap by mouth daily. 30 Cap 5 01/14/2016 Active Blood Glucose Monitoring Suppl (Moda2RideUCH ULTRA SYSTEM) W/DEVICE KITIndications:Type 2 diabetes mellitus with hemoglobin A1c goal of less than 7.0% ([facility]) Test once a day DX:E11.9 1 Kit 0 04/12/2016 Active nitroglycerin (NITROSTAT) 0.4 MG SUBLIndications:Slitter Scorer delores ischemic heart disease one tab under tongue as needed for chest pain maximum 3 doses 25 Tab 5 08/04/2019 Active Additional Information Patient not taking.Reported on 04/17/2023 Furosemide 40 MG Oral Tablet (Lasix)Indications:C hronic systolic heart failure ([facility]) USE 1 STRIP TO CHECK GLUCOSE TWICE [...] as of this encounter (statuses as of 07/25/2023) Active Problems Problem Noted Date Diagnosed Date Chronic obstructive pulmonary disease 10/28/2021 Overview: [place] dust expossure. Former smoker. Had PFTs 2014. [...] of inactive term GENERAL OSTEOARTHROSIS 05/01/2001 [place] (myocardial infarction) BPH without obstruction/lower urinary tract symp toms documented as of this encounter (statuses as of 07/25/2023) Resolved Problems Problem Noted Date Diagnosed Date [...] as of this encounter (statuses as of 07/25/2023) Immunizations Name Administration Dates Next Due COVID-19 mRNA, LNP-s, No Pre serve, 2-Dose Series ([employer]) 09/06/2020,08/16/2020 COVID-19, LNP-s, No Preserve , Alexander-sucrose, [...] on file documented as of this encounter Nursing Notes * Marie Dent LPN - 07/25/2023 10:59 AM EST Thoracic impedance monitoring: Fluid index reveals a baseline thoracic impedance indicating normal fluid status. * Marie Dent LPN - 07/25/2023 10:52 AM EST Patient and implanted device were evaluated today in the [facility]. Providers please see scanned report in the Scans tab. Left pectoral device pocket is healthy without erythema, swelling, pain, or drainage. Per [employer] device advisory: Programed all HV therapy pathways B>AX in all therapy zones . 1 episode of NSVT lasting 5 seconds at 161bpm initiated by PVC 1 episode of AFL lasting 1min 29sec on 04/10 Interrogation by Shawn Holden of [email or web address], Angelo Jean-Baptiste of [email or web address] and Marie Dent LPN documented in this encounter Plan of Treatment Upcoming Encounters Date Type Department Care Team (Late st Contact Info) Description 08/16/2023 1:30 PM EDT Cardiac Studies Cardiac Studies [address] [place] [address] 10/23/2023 2:00 PM EDT Office Visit Cardiology [address] [place] [address] Patrice Cheung PA-C [address] [place] [address] 12/04/2023 1:00 PM EDT Cardiac Studies Cardiology [address] [place] [address] [place] Pacer Clinic [facility] [address] [place] [address] Scheduled Orders Name Type Priority Associated Diagnoses Orde r Schedule DUAL-LEAD DEFIBRILLATOR + REPROGRAM Procedures Routine Sustained VT (ventricular tachycardia) (HCC) Ischemic cardiomyopathy Chronic systolic heart failure (HCC) Presence of automatic cardioverter/defibril lator (AICD) Ordered: 07/25/2023 Health Maintenance Due Date Last Done Comments Depression Screening 12/31/2020 01/01/2020 DTaP,Tdap,and Td Vaccines (2 - Td or Tdap) 03/11/2023 03/11/2013, 12/27/2007 B-12 07/05/2023 07/05/2022, 05/29, 02/23/2020, Additional history exists CKD HGB USE SMARTSET 33576 07/05/202307/05, 09/28/2021, 09/28/2021, Additional history exists GFR 08/22/2023 02/21/2023, 12/2022, 09/28/2021, Additional history exists HbA1c 08/22/2023 02/21/2023, 07/2021, 06/21/2021, Additional history exists Diabetic Eye Exam 01/11/2024 01/10/2023, , 06/02/2021, Additional history exists Albumin/Creatinine Ratio 02/22/2024 023, 10/28/2021, 01/19/2021, Additional history exists CKD PHOS USE SMARTSET 11387 02/22/2024 09/2 11/2022, 06/21/2021, 03/22/2020, Additional history exists Diabetic Foot Exam 02/22/2024 02/21/2023, 0 10/28/2021, 09/21/2020, Additional history exists O2 ASSESSMENT COMPLETED IN PAST YEAR FOR COPD 02/22/2024 02/21/2023 TSH 02/22/2024 02/21/2023, 02/12/2022, 09/28/2021, Additional history exists Pneumococcal Vaccine: 65+ [...] this encounter Medical Devices Implanted Type Area Crew Foreman Device Identifier Shelf Expiration Date Model / Serial / Lot Dbx 10cc [id number] - [id number] - [id number] Implanted:Qt y: 1 on 07/14/2021 by Kristian Chappell DO at OR [facility] 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 FND [id number] 01/28/2023 [id number] / [id number] / [id number] Prox Lat Humerus Plate Implanted:Qt y: 1 on 07/14/2021 by Kristian Chappell DO at OR [facility] Left: Shoulder MALLORY : ORTHOPAEDICS [id number] / / Screw Nlk A3 Ti 3.5x32mm - [id number] Implanted:Qt y: 3 on 07/14/2021 by Kristian Chappell DO at OR [facility] Left: Shoulder MALLORY : TRAUMA [id number] / / Screw Lk A3 Ti 4x40mm - [id number] Implanted:Qt y: 1 on 07/14/2021 by Kristian Chappell DO at OR [facility] Left: Shoulder MALLORY : TRAUMA [id number] / / Screw Lk A3 Ti 4x55mm - [id number] Implanted:Qt y: 1 on 07/14/2021 by Kristian Chappell DO at OR [facility] Left: Shoulder MALLORY : TRAUMA [id number] / / Screw Lk A3 Ti 4x30mm - [id number] Implanted:Qt y: 1 on 07/14/2021 by Kristian Chappell DO at OR [facility] Left: Shoulder MALLORY : TRAUMA [id number] / / 3.5x55 Locking Screw Implanted:Qt y: 1 on 07/14/2021 by Kristian Chappell DO at OR [facility] Left: Shoulder MALLORY : ORTHOPAEDICS [id number] / / documented as of this encounter Visit Diagnoses Diagnosis Sustained VT (ventricular tachycardia) (HCC)- Primary Paroxysmal ventricular tachycardia Ischemic cardiomyopathy Other specified forms of chronic ischemic heart disease Chronic systolic heart failure (HCC) Chronic systolic heart failure Presence of automatic cardioverter/defibrillator (AICD) Automatic implantable cardiac defibrillator in situ documented in this encounter Advance Directives Latest Code Status on File Code Status Date Activated Date Inactivated Comments Full Code 07/14/2021 2:48 PM 07/15/2021 12:26 AM This order reflects the patients wishes and were consensually agreed upon. Question Answer Comments Discussion of Advance Directives occurred with: Not Discussed Care Teams Marine Animal Trainer Relationship Specialty Start Date End Date Kaitlin Barry MD [address] [place] [address] [place] [address] PCP - General Family Medicine 04/22/19 documented as of this encounter
--- OUTSIDE RECORDS SUMMARY | 2023-11-29 11:28 | External Medical Summary | Summary of Care ---
Author Name Unknown Organization [facility] Address [address] [facility] [address] Phone [phone] Care Team Providers Care Bag Sealer Name Role Phone Kaitlin Barry MD Primary Care Prov ider Reason for Visit * Reason Onset Date Comments Appointment 07/05/2023 [place] appointment Encounter Details Date Type Department Care Team (Late st Contact Info) Description 07/05/2023 Telephone Cardiology, [facility] [address] [facility] [address] [place] [address] [place] [address] Appointment ([place] appointment ) Allergies Active Allergy Reactions Criticality Noted Date Comments No Known Drug Allergy 02/09/2003 documented as of this encounter (statuses as of 07/06/2023) Medications Medication Sig Dispensed Refills Start Date End Date Status Cyanocobalamin (B-12) 1000 MCG CapsuleIndications:B 12 deficiency Take 1 Cap by mouth daily. 30 Cap 5 01/14/2016 Active Blood Glucose Monitoring Suppl (WebSideStory ULTRA SYSTEM) W/DEVICE KITIndications:Type 2 diabetes mellitus with hemoglobin A1c goal of less than 7.0% (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 Former smoker. Had PFTs 2014. [...] as of this encounter (statuses as of 07/06/2023) Resolved Problems Problem Noted Date Diagnosed Date [...] as of this encounter (statuses as of 07/06/2023) Immunizations Name Administration Dates Next Due COVID-19 mRNA, LNP-s, No Pre serve, 2-Dose Series (RegistryLove) 09/06/2020,08/16/2020 COVID-19, LNP-s, No Preserve , Alexander-sucrose, [...] encounter Miscellaneous Notes * Telephone Encounter - Jinny Yancey OSA - 07/06/2023 8:37 AM EST Person calling: Juan Tavera Relationship to patient: n/a Number to return call: [phone] Reason for call: [facility] Appointment Pharmacy: n/a Provider Name: n/a Felipe, Patient received a VM that his [facility] appointment on 07/10/2023 needs rescheduled. Patient is fine with either 07/24 or 08/22. Please advise. Thank you, SHANITA Polanco * Telephone Encounter - Marie Dent LPN - 07/05/2023 2:39 PM EST Left message on patient's voicemail. Patient scheduled for [facility] in [place] 07/10/2023. [place] [facility] is 07/24/2023. Patient needs rescheduled to come 07/24 or 08/22 documented in this encounter Plan of Treatment Upcoming Encounters Date Type Department Care Team (Late st Contact Info) Description 07/10/2023 1:30 PM EST Cardiac Studies Cardiology [address] [place] [address] [place] [facility] [address] [place] [address] 08/16/2023 1:30 PM EDT Cardiac Studies Cardiac Studies [address] [place] [address] 10/23/2023 2:00 PM EDT Office Visit Cardiology [address] [place] [address] Patrice Cheung PA-C [address] [place] [address] 12/04/2023 1:00 PM EDT Cardiac Studies Cardiology [address] [place] [address] [facility] [address] [place] [address] Health Maintenance Due Date Last Done Comments Hepatitis B (1 of 3 - Risk 3-dose series) 2001 Depression Screening 12/31/2020 01/01/2020 DTaP,Tdap,and Td Vaccines (2 - Td or Tdap) 03/11/2023 03/11/2013, 12/27/2007 B-12 07/05/2023 07/05/2022, 05/29, 02/23/2020, Additional history exists CKD HGB USE SMARTSET 20136 07/05/202307/05, 09/28/2021, 09/28/2021, Additional history exists GFR 08/22/2023 02/21/2023, 02/0 12/2022, 09/28/2021, Additional history exists HbA1c 08/22/2023 02/21/2023, 06/0 07/2021, 06/21/2021, Additional history exists Diabetic Eye Exam 01/11/2024 01/10/2023, , 06/02/2021, Additional history exists Albumin/Creatinine Ratio 02/22/2024 023, 10/28/2021, 01/19/2021, Additional history exists CKD PHOS USE SMARTSET 73707 02/22/2024 092 11/2022, 06/21/2021, 03/22/2020, Additional history exists Diabetic [...] this encounter Medical Devices Implanted Type Area Sheet Rock Layer Device Identifier Shelf Expiration Date Model / Serial / Lot Dbx 10cc 695808 - [id number] - [id number] Implanted:Qt y: 1 [place] 07/14[place] [facility] 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 FND [id number] 01/28/2023 [id number] / [id number] / [id number] 3.5x55 Locking Screw Implanted:Qt y: 1 on 07/14/2021 by Kristina [place] [facility] [place]: Shoulder MALLORY : ORTHOPAEDICS [id number] / / documented as of this encounter Advance Directives Latest Code Status on File Code Status Date Activated Date Inactivated Comments Full Code 07/14/2021 2:48 PM 07/15/2021 12:26 AM This order reflects the patients wishes and were consensually agreed upon. Question Answer Comments Discussion of Advance Directives occurred with: Not Discussed Care Teams Bag Sealer Relationship Specialty Start Date End Date Kaitlin Barry MD [address] [place] [address] [place] [phone] PCP - General Family Medicine 04/22/19 documented as of this encounter
--- OUTSIDE RECORDS SUMMARY | 2023-11-29 11:28 | External Medical Summary | Summary of Care ---
Author Name Unknown Organization [facility] Address [address] [place] [address] Phone [phone] Care Team Providers Care Senior Php Developer Name Role Phone Kaitlin Barry MD Primary Care Prov ider Reason for Visit * Reason Comments [facility] Encounter Details Date Type Department Care Team (Latest Contact Info) Description 07/24/2023 11:15 AM EST Cardiac Studies Cardiology [address] [place] [address] [place] [address] [place] [address] Sustained VT (ventricular tachycardia) (HCC)*; Ischemic cardiomyopathy; [...] 5 01/14/2016 Active Blood Glucose Monitoring Suppl (PlatypiUCH ULTRA SYSTEM) W/DEVICE KITIndications:Type 2 diabetes mellitus with hemoglobin A1c goal of less than 7.0% ([facility]) Test once a day DX:E11.9 1 Kit 0 04/12/2016 Active nitroglycerin (NITROSTAT) 0.4 MG SUBLIndications:Information Technology Account Manager delores ischemic heart disease one tab under tongue as needed for chest pain maximum 3 doses 25 Tab 5 08/04/2019 Active Additional Information Patient not taking.Reported on 04/17/2023 Furosemide 40 MG Oral Tablet (Lasix)Indications:C hronic systolic heart failure ([facility]),STEVENSON (acute kidney injury) ([facility]) Take 2 Tabs by mouth daily. 180 [...] Date Chronic obstructive pulmonary disease 10/28/2021 Overview: [place] dust expossure. Former smoker. Had PFTs 2014. [...] of inactive term GENERAL OSTEOARTHROSIS 05/01/2001 [place] (myocardial infarction) BPH without obstruction/lower urinary tract [...] mRNA, LNP-s, No Pre serve, 2-Dose Series (Novariant) 09/06/2020,08/16/2020 COVID-19, LNP-s, No Preserve , Alexander-sucrose, [...] on 04/10 Interrogation by Shawn Holden of [place], Angelo Jean-Baptiste of [place] and Marie Dent LPN documented in this encounter Plan of Treatment Upcoming Encounters Date Type Department Care Team (Late st Contact Info) Description 08/16/2023 1:30 PM EDT Cardiac Studies Cardiac Studies [address] [place] [address] 10/23/2023 2:00 PM EDT Office Visit Cardiology [address] [place] [address] Patrice Cheung PA-C [address] [place] [address] 12/04/2023 1:00 PM EDT Cardiac Studies Cardiology [address] [place] [address] [place], Pacer Clinic [facility] [address] [place] [address] Scheduled Orders Name Type Priority Associated Diagnoses [...] Additional history exists CKD HGB USE SMARTSET 52369 07/05/202307/05, 09/28/2021, 09/28/2021, Additional history exists GFR 08/22/2023 02/21/2023, 12/2022, 09/28/2021, Additional history exists HbA1c 08/22/2023 02/21/2023, 07/2021, 06/21/2021, Additional history exists Diabetic Eye Exam 01/11/2024 01/10/2023, , 06/02/2021, Additional history exists Albumin/Creatinine Ratio 02/22/2024 023, 10/28/2021, 01/19/2021, Additional history exists CKD PHOS USE SMARTSET 41559 02/22/2024 09/2 11/2022, 06/21/2021, 03/22/2020, Additional history [...] this encounter Medical Devices Implanted Type Area Ophthalmic Tech Device Identifier Shelf Expiration Date Model / Serial / Lot Dbx 10cc [id number] - [id number] - [id number] Implanted:Qt y: 1 on 07/14/2021 by Kristian Chappell DO at [place] [facility] [place] 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 FND [id number] 01/28/2023 [id number] / [id number] / [id number] Prox Lat Humerus Plate Implanted:Qt y: 1 on 07/14/2021 by Kristian Chappell DO at [place] [facility] [place] Left: Shoulder MALLORY : ORTHOPAEDICS [id number] / / Screw Nlk A3 Ti 3.5x32mm - [id number] Implanted:Qt y: 3 on 07/14/2021 by Kristian Chappell DO at [place] [facility] [place] Left: Shoulder MALLORY : TRAUMA [id number] / / Screw Lk A3 Ti 4x40mm - [id number] Implanted:Qt y: 1 on 07/14/2021 by Kristian Chappell DO at [place] [facility] [place] Left: Shoulder MALLORY : TRAUMA [id number] / / Screw Lk A3 Ti 4x55mm - [id number] Implanted:Qt y: 1 on 07/14/2021 by Kristian Chappell DO at [place] [facility] [place] Left: Shoulder MALLORY : TRAUMA [id number] / / Screw Lk A3 Ti 4x30mm - [id number] Implanted:Qt y: 1 on 07/14/2021 by Kristian Chappell DO at [place] [facility] [place] Left: Shoulder MALLORY : TRAUMA [id number] / / 3.5x55 Locking Screw Implanted:Qt y: 1 on 07/14/2021 by Kristian Chappell DO at [place] [facility] [place] Left: Shoulder MALLORY : ORTHOPAEDICS [id number] / / documented as of this encounter [...] Directives occurred with: Not Discussed Care Teams Senior Php Developer Relationship Specialty Start Date End Date Kaitlin Barry MD [address] [place] [address] [place] [address] PCP - General Family Medicine 04/22/19 documented as of this encounter
--- OUTSIDE RECORDS SUMMARY | 2023-11-29 11:28 | External Medical Summary | Summary of Care ---
Author Name Unknown Organization [facility] Address [address] [facility] [place] [address] Phone [phone] Care Team Providers Care Laboratory Tester Name Role Phone Kaitlin Barry MD Primary Care Prov ider Reason for Visit * Reason Comments eRx-Medication Refill Encounter Details Date Type Department Care Team (Late st Contact Info) Description 07/07/2023 Refill Cardiology, [facility] [address] [place] [address] Shane Cheung PA-C [address] [place] [address] Chronic systolic heart failure (HCC); Sustained VT (ventricular tachycardia) (HCC); Dyslipidemia, goal LDL below 70; Ischemic cardiomyopathy; Essential (primary) hypertension Allergies Active Allergy Reactions Criticality Noted Date Comments No Known Drug Allergy 02/09/2003 documented as of this encounter (statuses as of 07/09/2023) Medications Medication Sig Dispensed Refills Start Date End Date Status Cyanocobalamin (B-12) 1000 MCG CapsuleIndications: B12 deficiency Take 1 Cap by mouth daily. 30 Cap 5 6 Active Blood Glucose Monitoring Suppl (Human Network LabsUCH ULTRA SYSTEM) W/DEVICE KITIndications:Type 2 diabetes mellitus with hemoglobin A1c goal of less than 7.0% ([facility]) Test once a day DX:E11.9 1 Kit 0 6 Active nitroglycerin (NITROSTAT) 0.4 MG SUBLIndications:Chr onic ischemic heart disease one tab under tongue as needed for chest pain maximum 3 doses 25 Tab 5 0 Active Additional Information Patient not taking.Reported on 04/17/2023 Furosemide 40 MG Oral Tablet (Lasix)Indications: Chronic systolic heart failure ([facility]),STEVENSON (acute kidney injury) ([facility]) Take 2 Tabs by mouth daily. 180 Tab 3 1 Active Additional Information Patient taking differently:80 mg Oral Daily(AM),Takes once or twice a week, Reported on 07/18/2022 Iron 28 MG Oral Tablet Take 1 Tablet by mouth in the morning. 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 30 Tablet 0 3 Active OneTouch UltraSoft LancetsIndications: Type 2 diabetes mellitus with hemoglobin A1c goal of less than 7.0% ([facility]) USE 1 TO CHECK GLUCOSE UP TO 4 TIMES DAILY DIRECTED E11.9 400 Each 3 3 Active Atorvastatin Calcium 40 MG Oral Tablet (Lipitor)Indication s:Dyslipidemia, goal LDL below 70,Chronic ischemic heart disease,Diabetes mellitus with stage 3 chronic kidney disease ([facility]) Take 1 Tablet by mouth in the morning. 90 Tablet 3 3 Active Ventolin HFA 108 (90 Base) MCG/ACT Inhalation Aerosol SolutionIndications :Pneumonia of left lower lobe due to infectious organism Inhale 2 Puffs by mouth every 4 hours as needed for Cough, Shortness of Breath or Wheezing. 18 g 1 3 Active OneTouch Ultra In Vitro StripIndications:Ty pe 2 diabetes mellitus with hemoglobin A1c goal of less than 7.0% ([facility]) USE 1 STRIP TO CHECK GLUCOSE TWICE DAILY FASTING AND EVENING 200 Strip 1 3 Active Hydrocortisone 2.5 % External CreamIndications:He morrhoids, unspecified hemorrhoid type Apply a small amount to rectal area twice daily for up to 14 days. 20 g 0 3 Active Ketoconazole 2 % External ShampooIndications: Dermatitis Apply topically to affected area every 3 days. Shampoo twice a week for 4 weeks. 120 mL 1 08/18/202 3 Active Metoprolol Succinate ER 100 MG Oral Tablet Extended Release 24 Hour (toPROL XL)Indications:Isch emic cardiomyopathy,Sust ained VT (ventricular tachycardia) (HCC),Dyslipidemia, goal LDL below 70,Essential (primary) hypertension,Chroni c systolic heart failure (HCC) TAKE 1 TABLET BY MOUTH IN THE MORNING 90 Tablet 1 3 Active Pantoprazole Sodium 40 MG Oral Tablet Delayed Release TAKE 1 TABLET BY MOUTH ONCE DAILY IN THE MORNING AND 1 TABLET ONCE DAILY AT BEDTIME 180 Tablet 1 3 Active metFORMIN HCl 1000 MG Oral TabletIndications:D iabetes mellitus with stage 3 chronic kidney disease (HCC) Take 1 tablet by mouth twice daily 180 Tablet 1 3 Active Levothyroxine Sodium 112 MCG [...] THE MORNING 90 Tablet 3 4 Active Isosorbide Mononitrate ER 30 MG Oral Tablet Extended Release 24 Hour (Imdur)Indications: Chronic systolic heart failure (HCC),Sustained VT (ventricular tachycardia) (HCC),Dyslipidemia, goal LDL below 70,Ischemic cardiomyopathy,Esse ntial (primary) hypertension TAKE 1 TABLET BY MOUTH ONCE DAILY IN THE MORNING 90 Tablet 3 3 07/09/19 24 Discontinued documented as of this encounter (statuses as of 07/09/2023) Active Problems Problem Noted Date Diagnosed Date Chronic obstructive pulmonary disease 10/28/2021 Overview: [place] dust expossure. Former smoker. Had PFTs 2014. [...] as of this encounter (statuses as of 07/09/2023) Resolved Problems Problem Noted Date Diagnosed Date [...] as of this encounter (statuses as of 07/09/2023) Immunizations Name Administration Dates Next Due COVID-19 mRNA, LNP-s, No Pre serve, 2-Dose Series (Synarc) 09/06/2020,08/16/2020 COVID-19, LNP-s, No Preserve , Alexander-sucrose, Ages 12+ (Synarc) 07/05/2021 COVID-19, MRNA-LNP, 23-24, P F, 30 [...] encounter Miscellaneous Notes * Telephone Encounter - Shane Cheung PA-C - 07/09/2023 11:39 AM ESTSigned Prescriptions: Disp Refills Isosorbide Mononitrate ER 30 MG Oral Table*90 Tab*3 Sig: TAKE 1 TABLET BY MOUTH ONCE DAILY IN THE MORNING Authorizing Provider: SHANE CHEUNG * Telephone Encounter - Cielo Christianson, COT - 07/09/2023 8:48 AM ESTPending Prescriptions: Disp Refills Isosorbide Mononitrate ER 30 MG Oral Table*90 Tab*3 Sig: TAKE 1 TABLET BY MOUTH ONCE DAILY IN THE MORNING * Telephone Encounter - Cielo Christianson, COT - 07/09/2023 8:47 AM EST Did you pend patient's preferred pharmacy and medication before forwarding?yes [facility] [address] [place] [address] Pending Prescriptions: Disp Refills Isosorbide Mononitrate ER 30 MG Oral Tabl*90 Tab*3 Sig: TAKE 1 TABLET BY MOUTH ONCE DAILY IN THE MORNING Last Visit: 07/13/2020 (in office), Visit date not found (telemedicine) Next Visit: Visit date not found If no future appointments scheduled, and last appointment is greater than a year ago, please schedule patient for a follow-up appointment Last date the medication was ordered: 08-21-2022 Is this request for a controlled substance?No Urine Drug Screen:No results found for this or any previous visit. Patient Phone Numbers Labs: Lab Results Component Value Date/Time CREAT 1.0 02/21/2023 11:16 AM CREAT 1.3 (H) 05/26/2020 09:43 AM POTASSIUM 4.7 02/21/2023 11:16 AM POTASSIUM 4.6 05/26/2020 09:43 AM TSH 5.63 (H) 02/21/2023 11:16 AM TSH 4.78 (H) 05/26/2020 09:43 AM LDLCALC 30 02/21/2023 11:16 AM LDLCALC 38 10/14/2019 10:24 AM LDLCALC 96. 04/10/1996 09:00 AM LDLDIRECT 28 09/28/2021 10:49 AM LDLDIRECT NOT APPLICABLE 10/14/2019 10:24 AM LDLDIRECT 61 10/05/2017 04:25 PM ALT 16 09/28/2021 10:49 AM ALT 29 05/26/2020 09:43 AM ALT 21 03/18/1996 09:40 AM HGBA1C 5.7 (H) 02/21/2023 11:16 AM HGBA1C 5.3 03/22/2020 03:01 PM documented in this encounter Plan of Treatment Upcoming Encounters Date Type Department Care Team (Late st Contact Info) Description 07/24/2023 11:15 AM EST Cardiac Studies Cardiology [address] [place] [address] [facility] [address] [place] [address] 08/16/2023 1:30 PM EDT Cardiac Studies Cardiac Studies [address] [place] [address] 10/23/2023 2:00 PM EDT Office Visit Cardiology [address] [place] [address] Shane Cheung PA-C [address] [place] [address] 12/04/2023 1:00 PM EDT Cardiac Studies Cardiology [address] [place] [address] Usha [place]armolejo [facility] [place] [address] Health Maintenance Due Date Last Done Comments Hepatitis B (1 of 3 - Risk 3-dose series) 2001 Depression Screening 12/31/2020 01/01/2020 DTaP,Tdap,and Td Vaccines (2 - Td or Tdap) 03/11/2023 03/11/2013, 12/27/2007 B-12 07/05/2023 07/05/2022, 05/29, 02/23/2020, Additional history exists CKD HGB USE SMARTSET 67804 07/05/202307/05, 09/28/2021, 09/28/2021, Additional history exists GFR 08/22/2023 02/21/2023, 02/0 12/2022, 09/28/2021, Additional history exists HbA1c 08/22/2023 02/21/2023, 06/0 07/2021, 06/21/2021, Additional history exists Diabetic Eye Exam 01/11/2024 01/10/2023, , 06/02/2021, Additional history exists Albumin/Creatinine Ratio 02/22/2024 023, 10/28/2021, 01/19/2021, Additional history exists CKD PHOS USE SMARTSET 48395 02/22/20242 11/2022, 06/21/2021, 03/22/2020, Additional history exists [...] this encounter Medical Devices Implanted Type Area Stem Crusher Device Identifier Shelf Expiration Date Model / Serial / Lot Dbx [facility] [id number] - [id number] - [id number] Implanted:Qt y: 1 on 07/14/2021 by Kristian Chappell DO at OR [facility] [place] 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 FND [id number] 01/28/2023 [id number] / [id number] / [id number] 3.5x55 Locking Screw Implanted:Qt y: 1 on 07/14/2021 by Kristian Chappell DO at [place] [facility] [place] Left: Shoulder MALLORY : ORTHOPAEDICS [id number] / / documented as of this encounter Visit Diagnoses Diagnosis Chronic systolic heart failure (HCC) Chronic systolic heart failure Sustained VT (ventricular tachycardia) (HCC) Paroxysmal ventricular tachycardia Dyslipidemia, goal LDL below 70 Other and unspecified hyperlipidemia Ischemic cardiomyopathy Other specified forms of chronic ischemic heart disease Essential (primary) hypertension Unspecified essential hypertension documented in this encounter Advance Directives Latest Code Status on File Code Status Date Activated Date Inactivated Comments Full Code 07/14/2021 2:48 PM 07/15/2021 12:26 AM This order reflects the patients wishes and were consensually agreed upon. Question Answer Comments Discussion of Advance Directives occurred with: Not Discussed Care Teams Laboratory Tester Relationship Specialty Start Date End Date Kaitlin Barry MD [address] [place] [address] [place] [address] PCP - General Family Medicine 04/22/19 documented as of this encounter
--- OUTSIDE RECORDS SUMMARY | 2023-11-29 11:28 | External Medical Summary | Summary of Care ---
Author Name Unknown Organization [facility] [address] [facility] [address] Phone [phone] Care Team Providers Care Steam Pressure Chamber Operator Name Role Phone Kaitlin Barry MD Primary Care Prov ider Reason for Visit * Reason Comments eRx-Medication Refill Encounter Details Date Type Department Care Team (Late st Contact Info) Description 07/11/2023 Refill Cardiology, [facility] [address] [place] [address] Shane Cheung PA-C [address] [place] [address] Dyslipidemia, goal LDL below 70; Chronic ischemic heart disease; 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) Allergies Active Allergy Reactions Criticality Noted Date Comments No Known Drug Allergy 02/09/2003 documented as of this encounter (statuses as of 07/11/2023) Medications Medication Sig Dispensed Refills Start Date End Date Status Cyanocobalamin (B-12) 1000 MCG CapsuleIndications: B12 deficiency Take 1 Cap by mouth daily. 30 Cap 5 6 Active Blood Glucose Monitoring Suppl (Quizrr ULTRA SYSTEM) W/DEVICE KITIndications:Type 2 diabetes mellitus with hemoglobin A1c goal of less than 7.0% ([facility]) Test once a day DX:E11.9 1 Kit 0 6 Active nitroglycerin (NITROSTAT) 0.4 MG SUBLIndications:Chr onic ischemic heart disease one tab under tongue as needed for chest pain maximum 3 doses 25 Tab 5 0 Active Additional Information Patient not taking.Reported on 04/17/2023 Furosemide 40 MG Oral Tablet (Lasix)Indications: Chronic systolic heart failure ([facility]),STEVENSON (acute kidney injury) ([facility]) Take 2 Tabs by mouth daily. 180 Tab 3 1 Active Additional Information Patient taking differently:80 mg Oral Daily(AM),Takes once or twice a week, Reported on 07/18/2022 Iron 28 MG Oral Tablet Take 1 Tablet by mouth in the morning. 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 30 Tablet 0 3 Active OneTouch UltraSoft LancetsIndications: Type 2 diabetes mellitus with hemoglobin A1c goal of less than 7.0% ([facility]) USE 1 TO CHECK GLUCOSE [...] hemoglobin A1c goal of less than 7.0% ([facility]) USE 1 STRIP TO CHECK [...] 4 weeks. 120 mL 1 3 Active Metoprolol Succinate ER 100 MG Oral Tablet Extended Release 24 Hour (toPROL XL)Indications:Isch emic cardiomyopathy,Sust ained VT (ventricular tachycardia) ([facility]),Dyslipidemia, goal LDL below 70,Essential (primary) hypertension,Chroni c systolic heart failure ([facility]) TAKE 1 TABLET BY MOUTH [...] in the morning. 90 Tablet 3 3 07/11/19 24 Discontinued documented as of this encounter (statuses as of 07/11/2023) Active Problems Problem Noted Date Diagnosed Date Chronic obstructive pulmonary disease 10/28/2021 Overview: [place] dust expossure. Former smoker. Had PFTs 2014. [...] as of this encounter (statuses as of 07/11/2023) Resolved Problems Problem Noted Date Diagnosed Date [...] as of this encounter (statuses as of 07/11/2023) Immunizations Name Administration Dates Next Due COVID-19 mRNA, LNP-s, No Pre serve, 2-Dose Series (Pfizer) 09/06/2020,08/16/2020 COVID-19, LNP-s, No Preserve , Alexander-sucrose, [...] Telephone Encounter - Shane Cheung PA-C - 07/11/2023 10:57 AM ESTSigned Prescriptions: Disp Refills Atorvastatin Calcium 40 MG Oral Tablet (Li*90 Tab*3 Sig: TAKE 1 TABLET BY MOUTH IN THE MORNING Authorizing Provider: SHANE CHEUNG * Telephone Encounter - Cielo Christianson COT - 07/11/2023 10:01 AM ESTPending Prescriptions: Disp Refills Atorvastatin Calcium 40 MG Oral Tablet (Li*90 Tab*3 Sig: TAKE 1 TABLET BY MOUTH IN THE MORNING * Telephone Encounter - Cielo Christianson COT - 07/11/2023 10:01 AM EST Did you pend patient's preferred pharmacy and medication before forwarding?yes Pharmacy: [facility] [address] [place] [address] Pending Prescriptions: Disp Refills Atorvastatin Calcium 40 MG Oral Tablet (L*90 Tab*3 Sig: TAKE 1 TABLET BY MOUTH IN THE MORNING Last Visit: 07/13/2020 (in office), Visit date not found (telemedicine) Next Visit: Visit date not found If no future appointments scheduled, and last appointment is greater than a year ago, please schedule patient for a follow-up appointment Last date the medication was ordered: 02-18-2023 Is this request for a controlled substance?No Urine Drug Screen:No results found for this or any previous visit. Patient Phone Numbers mobile [phone] Labs: Lab Results Component Value Date/Time CREAT [...] 07/24/2023 11:15 AM EST Cardiac Studies Cardiology [address] [place] [address] [facility] [address] [place] [address] 08/16/2023 1:30 PM EDT Cardiac Studies Cardiac Studies [address] [place] [address] 10/23/2023 2:00 PM EDT Office Visit Cardiology [address] [place] [address] Shane Cheung PA-C [address] [place] [address] 12/04/2023 1:00 PM EDT Cardiac Studies Cardiology [address] [place] [address] Usha Marmolejo [facility] [address] [place] [address] Health Maintenance Due Date Last Done Comments Hepatitis B (1 of 3 - Risk 3-dose series) 2001 Depression Screening 12/31/2020 01/01/2020 DTaP,Tdap,and Td Vaccines (2 - Td or Tdap) 03/11/2023 03/11/2013, 12/27/2007 B-12 07/05/2023 07/05/2022, 05/29, 02/23/2020, Additional history exists CKD HGB USE SMARTSET 37772 07/05/202307/05, 09/28/2021, 09/28/2021, Additional history exists GFR 08/22/2023 02/21/2023, 02/0 12/2022, 09/28/2021, Additional history exists HbA1c 08/22/2023 02/21/2023, 06/0 07/2021, 06/21/2021, Additional history exists Diabetic Eye Exam 01/11/2024 01/10/2023, , 06/02/2021, Additional history exists Albumin/Creatinine Ratio 02/22/2024 023, 10/28/2021, 01/19/2021, Additional history exists CKD PHOS USE SMARTSET 69292 02/22/2024 092 11/2022, 06/21/2021, 03/22/2020, Additional history [...] this encounter Medical Devices Implanted Type Area Cpo Device Identifier Shelf Expiration Date Model / Serial / Lot Dbx 10cc [id number] - [id number] - [id number] Implanted:Qt y: 1 on 07/14/2021 by Kristian Chappell DO [place] [facility] 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 FND [id number] 01/28/2023 [id number] / [id number] / [id number] 3.5x55 Locking Screw Implanted:Qt y: 1 on 07/14/2021 by Kristian Chappell DO at [place] [facility] [place] Left: Shoulder MALLORY : ORTHOPAEDICS [id number] / / documented as of this encounter Visit Diagnoses Diagnosis Dyslipidemia, goal LDL below 70 Other and unspecified hyperlipidemia Chronic ischemic heart disease Chronic ischemic heart disease, unspecified Diabetes mellitus with stage 3 chronic kidney [...] Directives occurred with: Not Discussed Care Teams Steam Pressure Chamber Operator Relationship Specialty Start Date End Date Kaitlin Barry MD [address] [place] [address] [place] [address] PCP - General Family Medicine 04/22/19 documented as of this encounter
--- OUTSIDE RECORDS SUMMARY | 2023-11-29 11:28 | External Medical Summary | Summary of Care ---
Author Name Unknown Organization [facility] Address [address] [place] [address] Phone [phone] Care Team Providers Care Associate Accountant Name Role Phone Kaitlin Barry MD Primary Care Prov ider Reason for Visit * Reason Onset Date Comments Medication Refill 06/07/2023 Encounter Details Date Type Department Care Team (Late st Contact Info) Description 06/07/2023 Refill Family [address] [phone] Kaitlin Barry MD [address] [place] [address] [place] [address] Allergies Active Allergy Reactions Criticality Noted Date Comments No Known Drug Allergy 02/09/2003 documented as of this encounter (statuses as of 06/07/2023) Medications Medication Sig Dispensed Refills Start Date End Date Status Cyanocobalamin (B-12) 1000 MCG CapsuleIndications:B 12 deficiency Take 1 Cap by mouth daily. 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 30 Tablet 0 07/21/2022 Active 10X TechnologiesTouch UltraSoft LancetsIndications:T ype 2 diabetes mellitus with hemoglobin A1c goal of less than 7.0% ([facility]) USE 1 TO CHECK GLUCOSE [...] or Wheezing. 18 g 1 10/18/2022 Active 10X TechnologiesTouch Ultra In Vitro StripIndications:Typ e 2 diabetes mellitus with hemoglobin A1c goal of less than 7.0% ([facility]) USE 1 STRIP TO CHECK [...] Extended Release 24 Hour (toPROL XL)Indications:Ische carlos nerique cardiomyopathy,Susta ined VT (ventricular tachycardia) (HCC),Dyslipidemia, goal [...] as of this encounter (statuses as of 06/07/2023) Active Problems Problem Noted Date Diagnosed Date Chronic obstructive pulmonary disease 10/28/2021 Overview: [place] dust expossure. Former smoker. Had PFTs 2014. [...] of inactive term GENERAL OSTEOARTHROSIS 05/01/2001 Old MA (myocardial infarction) BPH without obstruction/lower urinary tract symp toms documented as of this encounter (statuses as of 06/07/2023) Resolved Problems Problem Noted Date Diagnosed Date [...] as of this encounter (statuses as of 06/07/2023) Immunizations Name Administration Dates Next Due COVID-19 mRNA, LNP-s, No Pre serve, 2-Dose Series (GetLik[employer]s) 09/06/2020,08/16/2020 COVID-19, LNP-s, No Preserve , Alexander-sucrose, [...] encounter Miscellaneous Notes * Telephone Encounter - Marisol Santoyo PHARM Tech - 06/07/2023 8:58 AM EST Pt states that the Ketoconazole 2% shampoo is not working. Is there something stronger? Please advise pt [phone] Thank you, Marisol Santoyo [facility] Operations Director II Centralized Clinical Pharmacy Services(CCPS)(Formerly Telepharmacy) 06/07/2023,9:00 AM documented in this encounter Plan of Treatment Upcoming Encounters Date Type Department Care Team (Late st Contact Info) Description 08/16/2023 1:30 PM EDT Cardiac Studies Cardiac Studies [address] [place] [address] 10/23/2023 2:00 PM EDT Office Visit Cardiology [address] [place] [address] Patrice Cheung PA-C [address] [place] [address] 12/04/2023 1:00 PM EDT Cardiac Studies Cardiology [address] [place] [address] Usha Marmolejo [address] [place] [address] Health Maintenance Due Date Last Done Comments Hepatitis B (1 of 3 - Risk 3-dose series) 2001 Depression Screening 12/31/2020 01/01/2020 DTaP,Tdap,and Td Vaccines (2 - Td or Tdap) 03/11/2023 03/11/2013, 12/27/2007 B-12 07/05/2023 07/05/2022, 05/29, 02/23/2020, Additional history exists CKD HGB USE SMARTSET 19214 07/05/202307/05, 09/28/2021, 09/28/2021, Additional history exists GFR 08/22/2023 02/21/2023, 02/0 12/2022, 09/28/2021, Additional history exists HbA1c 08/22/2023 02/21/2023, 06/0 07/2021, 06/21/2021, Additional history exists Diabetic Eye Exam 01/11/2024 01/10/2023, , 06/02/2021, Additional history exists Albumin/Creatinine Ratio 02/22/2024 023, 10/28/2021, 01/19/2021, Additional history exists CKD PHOS USE SMARTSET 73806 02/22/2024 092 11/2022, 06/21/2021, 03/22/2020, Additional history [...] this encounter Medical Devices Implanted Type Area Tinter Photograph Device Identifier Shelf Expiration Date Model / Serial / Lot Dbx 10cc [id number] - [id number] - [id number] Implanted:Qt y: 1 on 07/14/2021 by Kristian Chappell DO [place] [facility] 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 FND [id number] 01/28/2023 [id number] / [id number] / [id number] 3.5x55 Locking Screw Implanted:Qt y: 1 on 07/14/2021 by Kristian Chappell DO [place] [facility] [place]: Shoulder MALLORY : ORTHOPAEDICS [id number] / / documented as of this encounter Advance Directives Latest Code Status on File Code Status Date Activated Date Inactivated Comments Full Code 07/14/2021 2:48 PM 07/15/2021 12:26 AM This order reflects the patients wishes and were consensually agreed upon. Question Answer Comments Discussion of Advance Directives occurred with: Not Discussed Care Teams Associate Accountant Relationship Specialty Start Date End Date Kaitlin Barry MD [address] [place] [address] [place] [address] PCP - General Family Medicine 04/22/19 documented as of this encounter
--- OUTSIDE RECORDS SUMMARY | 2023-11-29 13:05 | External Medical Summary | Summary of Care ---
Author Name Unknown Organization [facility] Address [address] [facility] [place] [address] Phone [phone] Care Team Providers Care Senior Cognos Developer Name Role Phone Kaitlin Barry MD Primary Care Prov ider Reason for Visit * Reason Comments Diarrhea * Evaluate & Treat - Unlimited Visits (Within 3 days (urgent)) - Authorized Specialty Diagnoses / Procedures Referred By Contac t Referred To Contact Gastroenterology Diagnoses Diarrhea, unspecified type Unexplained weight loss Kaitlin Barry MD [address] [place] [address] [place] [address] Referral ID Status Reason Start Date Expiration Date Visits Requested Visits Authorized [id number] Authorized Specialty Services Required 11/06/[phone] Encounter Details Date Type Department Care Team (Late st Contact Info) Description 11/28/2023 1:30 PM EDT Office Visit Gastroenterology, [facility] [address] [facility] [place] [address] Ja Dinero CRNP [address] [place] [address] Diarrhea, unspecified type* Allergies Active Allergy Reactions Criticality Noted Date Comments No Known Drug Allergy 02/09/2003 documented as of this encounter (statuses as of 11/28/2023) Medications Medication Sig Dispensed Refills Start Date End Date Status Cyanocobalamin (B-12) 1000 MCG CapsuleIndications:B 12 deficiency Take 1 Cap by mouth daily. 30 Cap 5 01/14/2016 Active Blood Glucose Monitoring Suppl (Snap TrendsTOUCH ULTRA SYSTEM) W/DEVICE KITIndications:Type 2 diabetes mellitus with hemoglobin A1c goal of less than 7.0% ([facility]) Test once a day DX:E11.9 1 Kit 04/12/2016 Active nitroglycerin (NITROSTAT) 0.4 MG SUBLIndications:Excel Analyst delores ischemic heart disease one tab under tongue as needed for chest pain maximum 3 doses 25 Tab 5 08/04/2019 Active Iron 28 MG Oral Tablet Take 1 Tablet by mouth in the morning. 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 30 Tablet 07/21/2022 Active EventBrowsr.comTouch UltraSoft LancetsIndications:T ype 2 diabetes mellitus with hemoglobin A1c goal of less than 7.0% ([facility]) USE 1 TO CHECK GLUCOSE UP [...] to 14 days. 20 g 12/12/2022 Active Additional Information Patient not taking.Reported on 11/28/2023 Ketoconazole 2 % External ShampooIndications:D ermatitis Apply topically to affected area every 3 days. Shampoo twice a week for 4 weeks. 120 mL 1 01/12/2023 Active Additional Information Patient not taking.Reported on 11/28/2023 Levothyroxine Sodium 112 MCG Oral TabletIndications:Ac quired [...] enrique cardiomyopathy,Susta ined VT (ventricular tachycardia) ([facility]),Dyslipidemia, goal LDL below 70,Essential (primary) hypertension,Chronic [...] A1c goal of less than 7.0% ([facility]) USE 1 STRIP TO CHECK GLUCOSE TWICE DAILY FASTING AND EVENING 200 Strip 1 08/10/2023 Active Furosemide 40 MG Oral Tablet (Lasix)Indications:C hronic systolic heart failure (HCC),STEVENSON (acute kidney injury) ([facility]) As needed 10/23/2023 Acti ve Clobetasol Propionate 0.05 % External Ointment (Temovate)Indication s:Dermatitis Apply topically to affected area 2 times [...] 10/26 Chronic obstructive pulmonary disease 10/28/2021 Overview: [place] dust expossure. Former smoker. Had PFTs 2014. [...] mRNA, LNP-s, No Pre serve, 2-Dose Series (2Win-Solutions) 09/06/2020,08/16/2020 COVID-19, LNP-s, No Preserve , Alexander-sucrose, Ages 12+ (2Win-Solutions) 07/05/2021 COVID-19, MRNA-LNP, 23-24, P F, 30 [...] as of this encounter Progress Notes * Ja Dinero CRNP - 11/28/2023 1:07 PM EDT Duplicate, see 3:30 documented in this encounter Plan of Treatment Upcoming Encounters Date Type Department Care Team (Latest Contact Info) Description 11/28/2023 3:00 PM EDT Office Visit Gastroenterology, [facility] [address] [place] [address] Ja Dinero CRNP [address] [place] [address] Edema of left lower leg*; Diarrhea, unspecified type; Unintentional weight loss 12/04/2023 1:00 PM EDT Cardiac Studies Cardiology [address] [place] [address] [place] [address] [place] [address] 12/05/2023 1:40 PM EDT Office Visit Nephrology [address] [place] [address] Ruthie Bravo MD [address] [place] [address] 05/20/2024 9:00 AM EST Office Visit Cardiology [address] [place] [address] Patrice Cheung, PAApC [address] [place] [address] Scheduled Referrals Name Type Priority Associated Diagnoses [...] Additional history exists CKD PHOS USE SMARTSET 92370 02/22/202401/27, 06/21/2021, 03/22/2020, Additional history exists Diabetic Foot Exam 02/22/2024 02/21/2023, 0 10/28/2021, 09/21/2020, Additional history exists GFR 05/21/2024 11/20/2023, 10/26, 08/16/2023, Additional history exists B-12 08/15/2024 08/16/2023, 02/0 12/2022, 06/21/2021, Additional history exists TSH 08/15/2024 08/16/2023, 01/27, 07/05/2022, Additional history exists O2 ASSESSMENT COMPLETED IN PAST YEAR FOR COPD 11/05/2024 11/06/2023 CKD HGB USE SMARTSET 76628 11/19/202411/19, 11/20/2023, 11/06/2023, Additional history exists DTaP,Tdap,and [...] this encounter Medical Devices Implanted Type Area Centrifugal Spinner Device Identifier Shelf Expiration Date Model / Serial / Lot Dbx 10cc [id number] - [id number] - [id number] Implanted:Qt y: 1 on 07/14/2021 by Kristian Chappell DO [place] [facility] 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 FND [id number] 01/28/2023 [id number] / [id number] / [id number] Prox Lat Humerus Plate Implanted:Qt y: 1 on 07/14/2021 by Kristian Chappell DO [place] [facility] [place] Shoulder MALLORY : ORTHOPAEDICS [id number] / / Screw Nlk A3 Ti 3.5x32mm - [id number] Implanted:Qt y: 3 on 07/14/2021 by Kristian Chappell DO [place] [facility] [place] Shoulder MALLORY : TRAUMA [id number] / / Screw Lk A3 Ti 4x40mm - [id number] Implanted:Qt y: 1 on 07/14/2021 by Kristian Chappell DO [place] [facility] [place]: Shoulder MALLORY : TRAUMA [id number] / / Screw Lk A3 Ti 4x55mm - [id number] Implanted:Qt y: 1 on 07/14/2021 by Kristian Chappell DO at [place] [facility] [place]: Shoulder MALLORY : TRAUMA [id number] / / Screw Lk A3 Ti 4x30mm - [id number] Implanted:Qt y: 1 on 07/14/2021 by Kristian Chappell DO [place] [facility] [place]: Shoulder MALLORY : TRAUMA [id number] / / 3.5x55 Locking Screw Implanted:Qt y: 1 on 07/14/2021 by Kristian Chappell DO [place] [facility] [place]: Shoulder MALLORY : ORTHOPAEDICS [id number] / / documented as of this encounter Visit Diagnoses Diagnosis Diarrhea, unspecified type- Primary Edema of left lower leg- Primary Diarrhea, unspecified type Unintentional weight loss Loss of weight documented in this encounter Advance Directives * Full Code (Latest Code Status on File) Date Activated Date Inactivated Comments 07/14/2021 2:48 PM 07/15/2021 12:26 AM This order reflects the patients wishes and were consensually agreed upon. Question Answer Comments Discussion of Advance Directives occurred with: Not Discussed Care Teams Senior Cognos Developer Relationship Specialty Start Date End Date Kaitlin Barry MD [address] [place] [address] [place] [id number] PCP - General Family Medicine 04/22/19 documented as of this encounter
--- OUTSIDE RECORDS SUMMARY | 2023-11-29 13:05 | External Medical Summary | Summary of Care ---
Author Name Unknown Organization [facility] Address [address] [facility] [address] Phone [phone] Care Team Providers Care Informatics Manager Name Role Phone Kaitlin Barry MD Primary Care Prov ider Reason for Visit * Reason Comments Follow Up F/U diarrhea with re cent weight loss. Diarrhea 5-8x daily Encounter Details Date Type Department Care Team (Late st Contact Info) Description 11/28/2023 3:00 PM EDT Office Visit Gastroenterology, [facility] [address] [place] [address] Ja Dinero CRNP [address] [facility] [place] [address] Edema of left lower leg*; Diarrhea, unspecified type; Unintentional weight loss Allergies Active Allergy Reactions Criticality Noted Date Comments No Known Drug Allergy 02/09/2003 documented as of this encounter (statuses as of 11/28/2023) Medications Medication Sig Dispensed Refills Start Date End Date Status Cyanocobalamin (B-12) 1000 MCG CapsuleIndications:B 12 deficiency Take 1 Cap by mouth daily. 30 Cap 5 01/14/2016 Active Blood Glucose Monitoring Suppl (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 30 Tablet 07/21/2022 Active OneTouch UltraSoft LancetsIndications:T ype 2 diabetes mellitus with hemoglobin A1c goal of less than 7.0% ([facility]) USE 1 TO CHECK GLUCOSE [...] mellitus with stage 3 chronic kidney disease ([facility]) Take 1 tablet by mouth twice daily 180 Tablet 1 08/10/2023 Active Metoprolol Succinate ER 100 MG Oral Tablet Extended Release 24 Hour (toPROL XL)Indications:Ische carlos enrique cardiomyopathy,Susta ined [place] (ventricular tachycardia) ([facility]),Dyslipidemia, goal LDL below 70,Essential (primary) hypertension,Chronic systolic heart failure ([facility]) TAKE 1 TABLET BY MOUTH IN THE MORNING 90 Tablet 1 08/10/2023 Active Pantoprazole Sodium 40 MG Oral Tablet Delayed Release TAKE 1 TABLET BY MOUTH ONCE DAILY IN THE MORNING AND 1 TABLET ONCE DAILY AT BEDTIME 180 Tablet 1 08/10/2023 Active OneTouch Ultra In Vitro StripIndications:Typ e 2 diabetes mellitus with hemoglobin A1c goal of less than 7.0% ([facility]) USE 1 STRIP TO CHECK GLUCOSE TWICE DAILY FASTING AND EVENING 200 Strip 1 08/10/2023 Active Furosemide 40 MG Oral Tablet (Lasix)Indications:C hronic systolic heart failure ([facility]),STEVENSON (acute kidney injury) ([facility]) As needed 10/23/2023 Acti ve Clobetasol Propionate [...] 10/26 Chronic obstructive pulmonary disease 10/28/2021 Overview: Webb dust expossure. Former smoker. Had PFTs 2014. [...] of insulin 02/21/2023 03/08/2023 Post herpetic neuralgia 07/21/2022/08/2022 Type 2 diabetes mellitus wit h stage [...] mRNA, LNP-s, No Pre serve, 2-Dose Series ([email or web address]) 09/06/2020,08/16/2020 COVID-19, LNP-s, No Preserve , Alexander-sucrose, [...] Sign Reading Time Taken Comments Blood Pressure 102/56 11/28/2023 1:23 PM EDT Pulse 73 11/28/2023 1:23 PM EDT Temperature 36.6 C (97.9 F) 11/28/2023 1:23 PM ED T Respiratory Rate - - Oxygen Saturation - - Inhaled Oxygen Concentration - - Weight 76.2 kg (167 lb 14.4 oz) 11/28/2023 1:23 PM EDT Height - - Body Mass Index 24.09 11/06/2023 8:24 AM EDT documented in this encounter Progress Notes * Ja Dinero CRNP - 11/28/2023 1:32 PM EDT Consult requested by Ref: KAITLIN BARRY[[id number]] [address] [place] [address] [place] [address] (office) [phone] (fax) CC: Diarrhea HPI: Recall that Mr. Juan Tavera is an 83 yr old male pt of BPH, CAD/CHF, DM2 who was seen in GI clinic most recently in 2021 for duodenitis. He presents today for diarrhea of 3wks durations, liquid, every time he eats or drinks. He has lost 178->167since last visit in September (6wks ago), pt believes all in the past 3 weeks. Other than the diarrhea, he has not pain, no symptoms, denies any blood in his BMS. Feels, "not as strong," but no dizziness or weakness. ent GI Meds: None, hasn't tried immodium ROS: + left leg edema Denies any CP, SOB, cough Other than diarrhea, GI is (-) A total of 12 systems were reviewed, all others (-). Diagnostic Testing: Labs: K on 11/20/23: 6.2. (we had called him, notified him of this results, he stopped drinking V8 juice. We recommended lab recheck but he had planned on getting labs here today). ABD US 2020: BILE DUCTS: Mild intrahepatic and extrahepatic duct dilatation for age. The common bile duct measures 9 mm.GALLBLADDER: No cholelithiasis, gallbladder wall thickening, or pericholecysticfluid CTAP 2021: Irregular appearance of the duodenum. It appears to have diffuse wall thickening and a patulous appearance especially its 3rd portion. More focal masslike wall thickening seen at the junction of the duodenum and jejunum. While this may represent inflammatory change, underlying lesion is not excluded. Recommend consultation with GI. EGD 2021: Normal esophagus. - Normal stomach. Biopsied. - Acquired duodenal stenosis with inflammatory changes. Biopsied EGD 2021: Normal esophagus. - Z-line regular, 39 cm from the incisors. - Gastritis. Biopsied. - Duodenitis with inflammation and luminal narrowing. Biopsied to r/o an underlying malignancy EGD 2019: Foxary-Taylor Grade III reflux esophagitis. - A large amount of bile and food (residue) in the stomach. - Erythematous mucosa in the stomach. Not biopsied given the stomach contents. - Normal examined duodenum. - No specimens collected Colonoscopy 2010: The perianal and digital rectal examinations were normal. Mild diffuse edema throughout entire colon. Otherwise unremarkable colon Colonoscopy 2006: One 2 mm polyp in the mid sigmoid colon. Resected and retrieved. - Anal papilla(e) were hypertrophied. ALLERGIES: Review of patient's allergies indicates: Allergen Reactions No Known Drug Allergy PMH/PSH/Soc Hx reviewed, significant for: Past Medical History: Diagnosis Date Benign neoplasm of colon Benign neoplasm of colon 01/17/07 hyperplastic tissue-repeat colonoscopy in 3-5 years BPH without obstruction/lower urinary tract symptoms Carpal tunnel syndrome Chronic ischemic heart disease DM type 2, goal A1c below 7 Heart failure, etiology unknown (HCC) Heart failure, systolic (HCC) 03/25/2009 Per Heart Failure Taxonomy Protocol. [place] (myocardial infarction) Post herpetic neuralgia 07/21/2022 Past [...] (EGD), FLEXIBLE, TRANSORAL, DIAGNOSTIC performed by Suzy Dewey DO at [facility] EGD, FLEXIBLE, DIAGNOSTIC 01/15/2020 gastritis / [facility] EGD, FLEXIBLE, DIAGNOSTIC 06/24/2021 gastritis, duodenitis, repeat 8-12 wks / [facility] EGD, FLEXIBLE, DIAGNOSTIC N/A 09/23/2021 Acquired duodenal stenosis, otherwise normal / biopsiesshowed inflammatory changes without evidenceof an underlying malignancy HUMERAL FRACTURE W/ INTERNAL FIXATION Left 07/14/2021 OPEN TREATMENT PROXIMAL HUMERUS FRACTURE performed by Kristian Chappell DO at OR [facility] REMOVE TONSILS & ADENOIDS, UNDER 12 Tonsillectomy/Adenoids,<12 Y/O Social History Socioeconomic History Marital status: Tobacco Use Smoking status: Former Current packs/day: 0.00 Types: Cigarettes Quit date: 05/27/1992 Years since quittin.5 Smokeless tobacco: Never Tobacco comments: Pt quit smoking in 1991 Vaping Use Vaping status: Never Used Substance and Sexual Activity Alcohol use: Yes Comment: "a we sip every now and then" Drug use: No Social Determinants of Health Food Insecurity: No Food Insecurity (08/04/2019) Hunger Vital Sign Worried About Running Out of Food in the Last Year: Never true Ran Out of Food in the Last Year: Never true Social Connections Family history reviewed and significant for: Family History Problem Relation Name Age of Onset Arthritis Mother Diabetes Mother Asthma Father Heart Disorder Father mi age 50's Lung Disorder Father Cancer Grandmother (Paternal) Arthritis Sister Cancer Aunt (Unspecified) breast Cancer Uncle (Unspecified) Heart Disorder Sister Cancer Sister liver Current Outpatient Medications Medication Sig Dispense Refill Clobetasol Propionate 0.05 % External Ointment (Temovate) Apply topically to affected area 2 times a day. To affected area on SCALP for up to two weeks. Use pea sized amount. 30 g 2 Furosemide 40 MG Oral Tablet (Lasix) As needed metFORMIN HCl 1000 MG Oral Tablet Take [...] ONCE DAILY AT BEDTIME 180 Tablet 1 Atorvastatin Calcium 40 MG Oral Tablet (Lipitor) TAKE 1 TABLET BY MOUTH IN THE MORNING 90 Tablet 3 Isosorbide Mononitrate ER 30 MG Oral Tablet Extended Release 24 Hour (Imdur) TAKE 1 TABLET BY MOUTHONCE DAILY IN THE MORNING 90 Tablet 3 Levothyroxine Sodium 112 MCG Oral Tablet TAKE 1 TABLET BY MOUTH ONCE DAILY FIRST THING IN THE MORNING AT LEAST 30 MINUTES PRIOR TO BREAKFAST OR OTHER MEDS 90 Tablet 3 Ventolin HFA 108 (90 Base) MCG/ACT Inhalation Aerosol Solution Inhale 2 Puffs by mouth every 4 hours as needed for Cough, Shortness of Breath or Wheezing. 18 g 1 Aspirin 81 MG Oral Tablet Chewable Take 1 Tablet by mouth in the morning. 30 Tablet 0 Iron 28 MG Oral Tablet Take 1 Tablet by mouth in the morning. nitroglycerin (NITROSTAT) 0.4 MG SUBL one tab under tongue as needed for chest pain maximum 3 doses25 Tab 5 Cyanocobalamin (B-12) 1000 MCG Capsule Take 1 Cap by mouth daily. 30 Cap 5 OneTouch Ultra In Vitro Strip USE 1 STRIP TO CHECK GLUCOSE TWICE DAILY FASTING AND EVENING 200 Strip 1 Ketoconazole 2 % External Shampoo Apply topically to affected area every 3 days. Shampoo twice a week for 4 weeks. (Patient not taking: Reported on 11/28/2023) 120 mL 1 Hydrocortisone 2.5 % External Cream Apply a small amount to rectal area twice daily for up to 14 days. (Patient not taking: Reported on 11/28/2023) 20 g 0 [employer] UltraSoft Lancets USE 1 TO CHECK GLUCOSE UP TO 4 TIMES DAILY DIRECTED E11.9 400 Each 3 Blood Glucose Monitoring Suppl ([employer] ULTRA SYSTEM) W/DEVICE KIT Test once a day DX:E11.9 1 Kit 0 No current facility-administered medications for this visit. EXAM: BP 102/56 | Pulse 73 | Temp 36.6 C (97.9 F) | Wt 76.2 kg (167 lb 14.4 oz) | BMI 24.09 kg/m | BSA 1.94 m GENERAL: 83 year old male well developed and well nourished in no acute distress SKIN: no rashes, ulcers, or spider angiomata HEENT: normocephalic, sclera clear, pharynx normal NECK: supple, no lymphadenopathy, no masses or thyroid enlargement LUNGS: few crackles in the bases, otherwise clear, no wheezing HEART: regular rate & rhythm, no murmurs and no gallops ABDOMEN: normo-active bowel sounds, soft, non-tender, non-distended no masses, no hepatosplenomegaly, no rebound or guarding, no bruits EXTREMITIES: His left leg measures 28cm at the smallest part of the ankle and his right leg measures 23 cm. + 1+ pitting edema in the left lower leg. No palmar erythema, no skin discoloration, no clubbing, no cyanosis NEURO: no lateralizing findings, Sensory/Motor grossly normal IMPRESSION/RECOMMENDATIONS: 83 year old male with Edema of left lower leg (Primary) - VASC DUPLEX VENOUS LE BILAT; Future; Expected date: 11/28/2023 Diarrhea, unspecified type - GASTROINTESTINAL PATHOGEN PANEL, STOOL; Future; Expected date: 11/28/2023 - CLOSTRIDIUM DIFFICILE, PCR; Future; Expected date: 11/29/2023 - CBC WITH WBC DIFFERENTIAL; Future; Expected date: 11/28/2023 - COMPREHENSIVE METABOLIC PANEL - EGD, FLEXIBLE, DIAGNOSTIC - COLONOSCOPY, DIAGNOSTIC (RECTUM) Unintentional weight loss - EGD, FLEXIBLE, DIAGNOSTIC - COLONOSCOPY, DIAGNOSTIC (RECTUM) Pt was taken to US here in for urgent doppler. Preliminary w extensive left DVT, small right groin DVT. Discussed w pt. He will be sent to [facility] ED. 3:05 I called the [facility] ED and provided report to the charge nurse including pt w CAD/CHF not anticoagulated, K last week 6.2. Denies any CP/SOB. 3:08 PM We are working w him now to arrange family to come here and transport him to the hospital. No family available. 911 was called to transport him to the ED. 3:30 PM. Pt continues to feel well, no CP, no SOB, able to carry on a conversation. EMS arrived, report given, pt transported to [facility] ED. Will reach out to the pt and schedule EGD, colonoscopy after hospitalization - dependent on findings there. I spent a total of 40 minutes on the date of service in review of patient's record, and previously obtained information in person and appropriate medical visit, discussion and education of plan, withpatient and/or caregiver, placing orders for tests/referral/procedures as medically necessary and documentation of pertinent clinical information in patient's medical records for their visit today. CATERINA Castillo [facility] Gastroenterology documented in this encounter Nursing Notes * Kirsten Sol LPN - 11/28/2023 1:22 PM EDT Chief Complaint Patient presents with Follow Up F/U diarrhea with recent weight loss. Diarrhea 5-8x daily documented in this encounter Plan of Treatment Upcoming Encounters Date Type Department Care Team (Late st Contact Info) Description 12/04/2023 1:00 PM EDT Cardiac Studies Cardiology [address] [place] [address] [place], Pacer [address] [place] [address] 12/05/2023 1:40 PM EDT Office Visit Nephrology [address] [place] [address] Ruthie Bravo MD [address] [place] [address] 05/20/2024 9:00 AM EST Office Visit Cardiology [address] [place] [address] Patrice Cheung PA-C [address] [place] [address] Scheduled Orders Name Type Priority Associated Diagnoses Orde r Schedule GASTROINTESTINAL PATHOGEN PANEL, STOOL Lab Routine Diarrhea, unspecified type Expected: 11/28/2023, Expires: 11/27/2024 CLOSTRIDIUM DIFFICILE, PCR Lab Routine Diarrhea, unspecified type Expected: 11/29/2023 (Approximate), Expires: 12/27/2024 CBC WITH WBC DIFFERENTIAL Lab Routine Diarrhea, unspecified type Expected: 11/28/2023, Expires: 11/27/2024 COMPREHENSIVE METABOLIC PANEL Lab Routine Diarrhea, unspecified type Ordered: 11/28/2023 EGD, FLEXIBLE, DIAGNOSTIC Procedures Routine Diarrhea, unspecified type Unintentional weight loss Ordered: 11/28/2023 COLONOSCOPY, DIAGNOSTIC (RECTUM) Procedures Routine Diarrhea, unspecified type Unintentional weight loss Ordered: 11/28/2023 Health Maintenance Due Date Last Done Comments [...] Additional history exists CKD PHOS USE SMARTSET 85614 02/22/202401/27, 06/21/2021, 03/22/2020, Additional history exists Diabetic Foot Exam 02/22/2024 02/21/2023, 0 10/28/2021, 09/21/2020, Additional history exists GFR 05/21/2024 11/20/2023, 10/26, 08/16/2023, Additional history exists B-12 08/15/2024 08/16/2023, /12/2022, 06/21/2021, Additional history exists TSH 08/15/2024 08/16/2023, 01/27, 07/05/2022, Additional history exists O2 ASSESSMENT COMPLETED IN PAST YEAR FOR COPD 11/05/2024 11/06/2023 CKD HGB USE SMARTSET 14855 11/19/202411/19, 11/20/2023, 11/06/2023, Additional history exists DTaP,Tdap,and [...] this encounter Medical Devices Implanted Type Area Roll Operator Device Identifier Shelf Expiration Date Model / Serial / Lot Dbx 10cc [id number] - [id number] - [id number] Implanted:Qt y: 1 on 07/14/2021 by Kristian Chappell DO at OR [facility] 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 FND [id number] 01/28/2023 [id number] / [id number] / [id number] Prox Lat Humerus Plate Implanted:Qt y: 1 on 07/14/2021 by Kristian Chappell DO at OR [facility] Left: Shoulder MALLORY : ORTH[employer] [id number] / / Screw Nlk A3 Ti 3.5x32mm - [id number] Implanted:Qt y: 3 on 07/14/2021 by Kristian Chappell DO at OR [facility] Left: Shoulder MALLORY : [employer] [id number] / / Screw Lk A3 Ti 4x40mm - [id number] Implanted:Qt y: 1 on 07/14/2021 by Kristian Chappell DO at OR [facility] Left: Shoulder MALLORY : [employer]UMA [id number] / / Screw Lk A3 Ti 4x55mm - [id number] Implanted:Qt y: 1 on 07/14/2021 by Kristian Chappell DO at OR [facility] Left: Shoulder MALLORY : [employer]MA [id number] / / Screw Lk A3 Ti 4x30mm - [id number] Implanted:Qt y: 1 on 07/14/2021 by Kristian Chappell DO at OR [facility] Left: Shoulder MALLORY : [employer]MA [id number] / / 3.5x55 Locking Screw Implanted:Qt y: 1 on 07/14/2021 by Kristian Chappell DO at OR [facility] Left: Shoulder MALLORY : ORTH[employer] [id number] / / documented as of this encounter Results * VASC DUPLEX VENOUS LE BILAT (11/28/2023 3:21 PM EDT) Anatomical Region Laterality Modality Lower Extremity, Vascular Ultras ound Narrative 11/28/2023 3:38 PM EDT VASCULAR LAB RESULTS DATE OF EXAMINATION: 11/28/23 INDICATION: Edema, Unspecified LOWER EXTREMITY VENOUS DUPLEX EXAMINATION Immediately before proceeding with the vascular lab procedure reported below, the identity of the patient, the correct exam and the correct procedural site were identified. Color flow Doppler, spectral analysis, and transducer compression techniques were applied during this ultrasound image examination. RIGHT LOWER EXTREMITY On duplex examination the right common femoral vein and the sapheno-femoral junction are all free of internal echoes and demonstrate normal transducer compressibility during vasquez scale imaging and normal respiratory and augmentation response during Doppler interrogation. The posterior tibial veins and peroneal veins demonstrate no evidence of thrombosis. Right femoral vein has continuous flow, is non-compressible and echogenic. Right popliteal vein has continuous flow, is partly compressible and echogenic. LEFT LOWER EXTREMITY Left common femoral vein has continuous flow, is partly compressible and echogenic. Left femoral vein has continuous flow, is non-compressible and echogenic. Left popliteal vein has no flow, is non-compressible and echogenic. Left posterior tibial vein demonstrates evidence of thrombosis. Left peroneal vein demonstrates evidence of thrombosis. CONCLUSIONS: Acute deep venous thrombosis in the bilateral lower extremity in the segments as noted above. Preliminary report was given to CATERINA Hassan on 11/28/2023 at 3:15 pm . Ja DIGGS RAD VASCULAR documented in this encounter Visit Diagnoses Diagnosis Edema of left lower leg- Primary Diarrhea, unspecified type Unintentional weight loss Loss of weight Edema of left lower leg documented in this encounter Advance Directives * Full Code (Latest Code Status on File) Date Activated Date Inactivated Comments 07/14/2021 2:48 PM 07/15/2021 12:26 AM This order reflects the patients wishes and were consensually agreed upon. Question Answer Comments Discussion of Advance Directives occurred with: Not Discussed Care Teams Informatics Manager Relationship Specialty Start Date End Date Kaitlin Barry MD [address] [place] [address] [place] [address] PCP - General Family Medicine 04/22/19 documented as of this encounter
--- OUTSIDE RECORDS SUMMARY | 2023-11-29 13:05 | External Medical Summary | Summary of Care ---
Author Name Unknown Organization [facility] [address] [facility] [address] Phone [phone] Care Team Providers Care Thermal Engineer Name Role Phone Kaitlin Barry MD Primary Care Prov ider Reason for Visit * Reason Onset Date Comments Appointment 11/28/2023 [facility] appointment Encounter Details Date Type Department Care Team (Late st Contact Info) Description 11/28/2023 Telephone Cardiology, [facility] [address] [facility] [address] [place] [address] [place] [address] Appointment ([facility] appointment ) Allergies Active Allergy Reactions Criticality Noted Date Comments No Known Drug Allergy 02/09/2003 documented as of this encounter (statuses as of 11/28/2023) Medications Medication Sig Dispensed Refills Start Date End Date Status Cyanocobalamin (B-12) 1000 MCG CapsuleIndications:B 12 deficiency Take 1 Cap by mouth daily. 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 delores ischemic heart disease one tab [...] of less than 7.0% (HCC) USE 1 TO CHECK GLUCOSE UP TO [...] mellitus with stage 3 chronic kidney disease ([facility]) Take 1 tablet by mouth twice daily 180 Tablet 1 08/10/2023 Active Metoprolol Succinate ER 100 MG Oral Tablet Extended Release 24 Hour (toPROL XL)Indications:Ische carlos enrique cardiomyopathy,Susta ined [place] (ventricular tachycardia) ([facility]),Dyslipidemia, goal LDL below 70,Essential (primary) hypertension,Chronic systolic heart failure ([facility]) TAKE 1 TABLET BY MOUTH IN THE MORNING 90 Tablet 08/10/2023 Active Pantoprazole Sodium 40 MG Oral Tablet Delayed Release TAKE 1 TABLET BY MOUTH ONCE DAILY IN THE MORNING AND 1 TABLET ONCE DAILY AT BEDTIME 180 Tablet 08/10/2023 Active OneTouch Ultra In Vitro StripIndications:Typ e 2 diabetes mellitus with hemoglobin A1c goal of less than 7.0% ([facility]) USE 1 STRIP TO CHECK GLUCOSE TWICE DAILY FASTING AND EVENING 200 Strip 1 08/10/2023 Active Furosemide 40 MG Oral Tablet (Lasix)Indications:C hronic systolic heart failure ([facility]),STEVENSON (acute kidney injury) ([facility]) As needed 10/23/2023 Acti ve Clobetasol Propionate [...] 10/26 Chronic obstructive pulmonary disease 10/28/2021 Overview: [place] dust expossure. Former smoker. Had PFTs 2014. 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 Patient is monitored remotely, IOC not indicated at this time. Patient hung up call and then did notanswer when called back. Voicemail left. documented in this encounter Plan of Treatment Upcoming Encounters Date Type Department Care Team (Late st Contact Info) Description 12/04/2023 1:00 PM EDT Cardiac Studies Cardiology [address] [place] [phone] Usha Marmolejo [address] [place] [address] 12/05/2023 1:40 PM EDT Office Visit Nephrology [address] [place] [address] Ruthie Bravo MD [address] [place] [address] 05/20/2024 9:00 AM EST Office Visit Cardiology [address] [place] [address] Patrice Cheung PA-C [address] [place] [address] Health Maintenance Due Date Last Done Comments [...] Additional history exists CKD PHOS USE SMARTSET 71092 02/22/202401/27, 06/21/2021, 03/22/2020, Additional history exists Diabetic Foot Exam 02/22/2024 02/21/2023, 0 10/28/2021, 09/21/2020, Additional history exists GFR 05/21/2024 11/20/2023, 0605/2023, 08/16/2023, Additional history exists B-12 08/15/2024 08/16/2023, 0 12/2022, 06/21/2021, Additional history exists TSH 08/15/2024 08/16/2023, 01/27, 07/05/2022, Additional history exists O2 ASSESSMENT COMPLETED IN PAST YEAR FOR COPD 11/05/2024 11/06/2023 CKD HGB USE SMARTSET 83854 11/19/202411/19, 11/20/2023, 11/06/2023, Additional history exists DTaP,Tdap,and [...] this encounter Medical Devices Implanted Type Area Software Test Manager Device Identifier Shelf Expiration Date Model / Serial / Lot Dbx 10cc [id number] - [id number] - [id number] Implanted:Qt y: 1 on 07/14/2021 by Kristian Chappell DO at OR [facility] 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 FND [id number] 01/28/2023 [id number] / [id number] / [id number] Prox Lat Humerus Plate Implanted:Qt y: 1 on 07/14/2021 by Kristian Chappell DO at OR [facility] Left: Shoulder MALLORY : ORTHOPAEDICS [id number] / / Screw Nlk A3 Ti 3.5x32mm - [id number] Implanted:Qt y: 3 on 07/14/2021 by Kristian Chappell DO at OR [facility] Left: Shoulder MALLORY : TRAUMA [id number] / / Screw Lk A3 Ti 4x40mm - [id number] Implanted:Qt y: 1 on 07/14/2021 by Kristian Chappell DO at OR [facility] Left: Shoulder MALLORY : TRAUMA [id number] / / Screw Lk A3 Ti 4x55mm - [id number] Implanted:Qt y: 1 on 07/14/2021 by Kristian Chappell DO at OR [facility] Left: Shoulder MALLORY : TRAUMA [id number] / / Screw Lk A3 Ti 4x30mm - [id number] Implanted:Qt y: 1 on 07/14/2021 by Kristian Chappell DO at OR [facility] Left: Shoulder MALLORY : TRAUMA [id number] / / 3.5x55 Locking Screw Implanted:Qt y: 1 on 07/14/2021 by Kristian Chappell DO at OR [facility] Left: Shoulder MALLORY : ORTHOPAEDICS [id number] / / documented as of this encounter Advance Directives * Full Code (Latest Code Status on File) Date Activated Date Inactivated Comments 07/14/2021 2:48 PM 07/15/2021 12:26 AM This order reflects the patients wishes and were consensually agreed upon. Question Answer Comments Discussion of Advance Directives occurred with: Not Discussed Care Teams Thermal Engineer Relationship Specialty Start Date End Date Kaitlin Barry MD [address] [place] [address] [place] [address] PCP - General Family Medicine 04/22/19 documented as of this encounter
--- OUTSIDE RECORDS SUMMARY | 2023-11-29 13:05 | External Medical Summary | Summary of Care ---
Author Name Unknown Organization [facility] Address [address] [place] [address] Phone [phone] Care Team Providers Care Congressional Representative Name Role Phone Kaitlin Barry MD Primary Care Prov ider Reason for Referral * Evaluate & Treat - Unlimited Visits (Within 3 days (urgent)) - Authorized Specialty Diagnoses / Procedures Referred By Contac t Referred To Contact Nephrology Diagnoses STEVENSON (acute kidney injury) (HCC) Kaitlin Barry MD [address] [place] [address] [place] [address] Referral ID Status Reason Start Date Expiration Date Visits Requested Visits Authorized [id number] Authorized Specialty Services Required 11/22/2023 999 999 Question Answer Referral Priority Within 3 days (urgent) Where should this appointment be scheduled? [facility] What condition is this patient being seen for? Acute kidney injury Reason for Visit * Reason Onset Date Comments Appointment 11/22/2023 Nephrology/Renal US Encounter Details Date Type Department Care Team (Late st Contact Info) Description 11/22/2023 Telephone Family Medicine [address] [place] [address] Kaitlin Barry MD [address] [place] [address] [place] [address] Appointment (Nephrology/Renal US ) Allergies Active Allergy Reactions Criticality Noted Date Comments No Known Drug Allergy 02/09/2003 documented as of this encounter (statuses as of 11/28/2023) Medications Medication Sig Dispensed Refills Start Date End Date Status Cyanocobalamin (B-12) 1000 MCG CapsuleIndications:B1 2 deficiency Take 1 Cap by mouth daily. 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 30 Tablet 07/21/2022 Active Junko TadaTouch UltraSoft LancetsIndications:Ty pe 2 diabetes mellitus with hemoglobin A1c goal of less than 7.0% ([facility]) USE 1 TO CHECK GLUCOSE [...] mellitus with stage 3 chronic kidney disease ([facility]) TAKE 1 TABLET BY MOUTH IN THE MORNING 90 Tablet 3 07/11/2023 Active metFORMIN HCl 1000 MG Oral TabletIndications:Ayesha betes mellitus with stage 3 chronic kidney disease ([facility]) Take 1 tablet by mouth twice daily 180 Tablet 1 08/10/2023 Active Metoprolol Succinate ER 100 MG Oral Tablet Extended Release 24 Hour (toPROL XL)Indications:Ischem ic cardiomyopathy,Sustai leslie [place] (ventricular tachycardia) ([facility]),Dyslipidemia, goal LDL below 70,Essential (primary) hypertension,Chronic systolic heart failure ([facility]) TAKE 1 TABLET BY MOUTH IN THE MORNING 90 Tablet 1 08/10/2023 Active Pantoprazole Sodium 40 MG Oral Tablet Delayed Release TAKE 1 TABLET BY MOUTH ONCE DAILY IN THE MORNING AND 1 TABLET ONCE DAILY AT BEDTIME 180 Tablet 1 08/10/2023 Active OneTouch Ultra In Vitro StripIndications:Type 2 diabetes mellitus with hemoglobin A1c goal of less than 7.0% ([facility]) USE 1 STRIP TO CHECK GLUCOSE TWICE DAILY FASTING AND EVENING 200 Strip 1 08/10/2023 Active Furosemide 40 MG Oral Tablet (Lasix)Indications:Ch ronic systolic heart failure (HCC),STEVENSON (acute kidney injury) ([facility]) As needed 10/23/2023 Active Clobetasol [...] 10/26 Chronic obstructive pulmonary disease 10/28/2021 Overview: [place] dust expossure. Former smoker. Had PFTs 2014. [...] mRNA, LNP-s, No Pre serve, 2-Dose Series ([employer]) 09/06/2020,08/16/2020 COVID-19, LNP-s, No Preserve , Alexander-sucrose, Ages 12+ ([employer]) 07/05/2021 COVID-19, MRNA-LNP, 23-24, P F, 30 [...] him for 12/05/23 @ 1:40 pm at [facility]. He needs to schedule a renal [...] 1:30 PM EDT Office Visit Gastroenterology, [facility] [address] [place] [address] Ja Dinero CRNP [address] [place] [address] CC: 11/28/2023 3:00 PM EDT Office Visit Gastroenterology, [facility] [address] [place] [address] Ja Dinero CRNP [address] [place], [place] [address] Arrived 12/04/2023 1:00 PM EDT Cardiac Studies Cardiology [address] [place] [address] [place], Pacer Clinic [facility] [address] [place] [address] 12/05/2023 1:40 PM EDT Office Visit Nephrology [address] [place] [address] Ruthie Bravo MD [address] [place] [address] 05/20/2024 9:00 AM EST Office Visit Cardiology [address] [place] [address] Patrice Cheung PA-C [address] [place] [address] Scheduled Orders Name Type Priority Associated Diagnoses Orde r Schedule RENAL FUNCTION PANEL Lab Routine STEVENSON (acute kidney injury) ([facility]) Expected: 11/22/2023, Expires: 11/21/2024 URINALYSIS, REFLEX TO MICROSCOPIC Lab Routine STEVENSON (acute kidney injury) ([facility]) Expected: 11/22/2023, Expires: 11/21/2024 ALBUMIN / CREATININE RATIO, URINE Lab Routine STEVENSON (acute kidney injury) (HCC) Expected: 11/22/2023, Expires: 11/21/2024 US RENAL Medical Imaging Routine STEVENSON (acute kidney injury) ([facility]) Expected: 11/22/2023, Expires: 12/21/2024 HEPATITIS B SURFACE [...] Additional history exists CKD PHOS USE SMARTSET 08097 02/22/202401/27, 06/21/2021, 03/22/2020, Additional history exists Diabetic Foot Exam 02/22/2024 02/21/2023, 0 10/28/2021, 09/21/2020, Additional history exists GFR 05/21/2024 11/20/2023, 0605/2023, 08/16/2023, Additional history exists B-12 08/15/2024 08/16/2023, 02/0 12/2022, 06/21/2021, Additional history exists TSH 08/15/2024 08/16/2023, 01/27, 07/05/2022, Additional history exists O2 ASSESSMENT COMPLETED IN PAST YEAR FOR COPD 11/05/2024 11/06/2023 CKD HGB USE SMARTSET 18090 11/19/202411/19, 11/20/2023, 11/06/2023, Additional history exists DTaP,Tdap,and [...] this encounter Medical Devices Implanted Type Area Shake Feeder Device Identifier Shelf Expiration Date Model / Serial / Lot Dbx 10cc [id number] - [id number] - [id number] Implanted:Qt y: 1 on 07/14/2021 by Kristian Chappell DO at [facility] 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 FND [id number] 01/28/2023 [id number] / [id number] / [id number] Prox Lat Humerus Plate Implanted:Qt y: 1 on 07/14/2021 by Kristian Chappell DO OR [facility] Left: Shoulder MALLORY : ORTHOPAEDICS [id number] / / Screw Nlk A3 Ti 3.5x32mm - [id number] Implanted:Qt y: 3 on 07/14/2021 by Kristian Chappell DO [facility] Left: Shoulder MALLORY : TRAUMA [id number] / / Screw Lk A3 Ti 4x40mm - [id number] Implanted:Qt y: 1 on 07/14/2021 by Kristian Chappell DO at [place] [facility] Left: Shoulder MALLORY : TRAUMA [id number] / / Screw Lk A3 Ti 4x55mm - [id number] Implanted:Qt y: 1 on 07/14/2021 by Kristian Chappell DO OR [facility] Left: Shoulder MALLORY : TRAUMA [id number] / / Screw Lk A3 Ti 4x30mm - [id number] Implanted:Qt y: 1 on 07/14/2021 by Kristian Chappell DO OR [facility] Left: Shoulder MALLORY : TRAUMA [id number] / / 3.5x55 Locking Screw Implanted:Qt y: 1 on 07/14/2021 by Kristian Chappell DO at [place] [facility] Left: Shoulder MALLORY : ORTHOPAEDICS [id number] / / documented as of this encounter [...] Directives occurred with: Not Discussed Care Teams Congressional Representative Relationship Specialty Start Date End Date Kaitlin Barry MD [address] [place] [address] [place] [address] PCP - General Family Medicine 04/22/19 documented as of this encounter
[2023-11-29] MEDS: ERGOCALCIFEROL 1250 MCG (50,000 UNITS) CAP PO SCH (13:26)
[2023-11-29] MEDS: CALCIUM CARBONATE 1,250 MG/5 ML UDC PO SCH (13:26)
[2023-11-29] MEDS: WARFARIN SOD 5 MG TAB PO SCH (16:27)
[2023-11-30 06:21] LABS: Hemoglobin 13.3 g/dl (14.0-18.0); Mean Corpuscular Hemoglobin 31.4 pg (25.0-34.0); Mean Corpuscular Hgb Conc 33.3 g/dL (32.0-36.0); Mean Corpuscular Volume 94.3 fL (80.0-100.0); Mean Platelet Volume 9.4 fL (9.4-12.4); Platelet Count 212 K/uL (130-400); RDW Coefficient of Variation 14.7 % (11.5-14.5); RDW Standard Deviation 50.9 fL (36.4-46.3); Red Blood Count 4.24 M/uL (4.70-6.10); White Blood Count 4.75 K/ul (4.8-10.8)
[2023-11-30 06:35] LABS: BUN Creatinine Ratio 14.7 (10-20); Calcium 7.1 mg/dl (8.6-10.3); Creatinine Clr Calc Pharmacy 57.7 ml/min; Est GFR (Non-African American) 68.1 ml/min; Magnesium 1.8 mg/dl (1.7-2.4); Phosphorus 2.2 mg/dl (2.5-4.9); Potassium 4.4 mmol/L (3.5-5.1)
[2023-11-30 06:47] LABS: ANTI-Xa, UFH(UnfractionatedHep 0.24 IU/ml (0.3-0.7); INR 1.1 (0.9-1.1); Prothrombin Time 12.2 Seconds (9.0-12.0)
[2023-11-30] MEDS ORDERED: SODIUM PHOSPHATE 3 MMOL/1 ML INFUSION IV STA (07:42)
[2023-11-30] MEDS: SODIUM PHOSPHATE 21 MMOL in SODIUM CHLORIDE 0.9% 500 ML IV ONE (08:09)
--- NOTE | 2023-11-30 12:48 | Hospitalist Progress Note ---
Date of Service November 30, 2023 Assessment & Plan (1) Ventricular mural thrombus: (2) DVT (deep venous thrombosis): (3) Pulmonary embolism: (4) Left leg swelling: Plan Mr. Tavera is an 83 year-old male with longstanding history of coronary heart disease, severe ischemic cardiomyopathy c/b HFrEF s/p dcICD, prior history of LV mural thrombus 2019, GIB requiring transfusion, hypothyroidism and other conditions listed below who was admitted for management of acute PE/DVT. Patient presented to OP appointment and found to have LLE swelling, which OP doppler revealed DVT. Patient sent to ED where work up revealed right pulmonary emboli. ECHO subsequently revealed recurrent LV thrombus, LVEF 25-30% Discussed case with Civil Preparedness Coordinator who reviewed ECHO: given presence of LV thrombus, warfarin is the superior option for AC. Discussed at bedside with patient. He denies any recent GI discomfort, bleeding. He notes his diarrhea has stopped. When discussing colonoscopy for future, he states he will likely "not go through with it." He is agreeable to try Coumadin once more and advised to notify for any signs of GI bleed. Attempted to trial lovenox and discharge, however, lovenox roughly 60 dollars and that is a cost patient cannot incur. Will continue bridge while admitted. #Right Hilar Pulmonary Embolism (Submassive) #Extensive DVT Left leg OP doppler revealed extensive left DVT and small right groin DVT CTA Chest:Right hilar and lobar emoboli, nonocclusive, no left sided, no RV strain on maginge CTA AB/P: Extensive left femoral DVT presents with symptomatic but hemodynamically stable PE, BNP 398 No Right ventricular strain noted on CTA In these patients, anticoagulation is the mainstay of treatment Unclear trigger, as pt is without past hx suggestive of hypercoagulable state or recent travel. Stable Trop iso known CAD and PE -Anticoagulation: Heparin drip, plan to transition to DOAC -Monitor on tele -Plan for outpatient hypercoagulability studies -Given family hx, factor V Leiden ordered per brother/patient request, pending ECHO: large nonlaminated globular llv apical thrombus Continue Warfarin 5mg tonight Transition to lovenox BID INR in am #Elevated Troponin likely demand iso PE and known CAD asymptomatic, trend x3 monitor on tele #Left Subclavian Stenosis Focal, 80% stenosis at the origin of left subclavian artery associated with calcific plaquing. OP Vascular Follow up #Vitamin D deficiency #hypomagnesemia #hypocalcemia -Mag corrected from 1.1 to 2.2 Calcium 7.0, 8.5 corrected for albumin Low calcium, severely low Vit D Start Vitamin D 1250 U q 7 days Calcium carbonate BID #Diarrhea *improving #Unintentional weight loss Stool culture on 11/07 negative undergoing GI eval as OP, pending OP EGD/C scope---patient declines No masses/stranding identified on CT ABP #Ischemic Cardiomyopathy s/p BIPIN to LAD 2004 #Chronic HFrEF (LVEF 20% on 07/2023) #Chronic Left Mural Thrombus 2019 (visualized again on CTA) - Home diuretics: Lasix 40mg prn - GDMT: *BetaB: metoprolol succinate 100mg qam *RAAS/ Sb/ SGLT: limited / hypotension *Veno/Vasodilators: Imdur 30mg daily *ICD: 2019, last interrogated 06/2023 - Strict I/Os, daily weights -Continue ASA and statin #NSVT #HX of ?atrial flutter Per cardiology notes from 09/2023 visit: ". Elevated [id number] Score. Anticoagulation discussed, electing to continue without Coumadin anticoagulation (does not have prescription drug coverage)." continue BB Now on Coumadin #HLD Continue statin #Hypothyroidism elevated tsh 6.4, normal FT4 continue home levothyroxine #GERD continue PPI DVT lovenox w/ warfarin Dispo like 1-2 days depending on INR and ability to possibly bridge at home; will reassess in am Admission and Anticipated Discharge Date Admission Date: November 28, 2023 Subjective NAEO Reports feeling very well, excited to report reduction in left leg swelling no chest pain, palpitations or other acute concerns Physical Exam Constitutional: WD/WN, vitals as above Respiratory: normal respiratory effort, lungs clear to auscultation Cardiovascular: LLE with notable reduction in edema Gastrointestinal (Abdomen): normal bowel sounds, soft, nontender, no hepatosplenomegaly Results & Data Results & Data Vital Signs (Past 12 Hours) Vital Signs Temp Pulse Pulse Resp BP Pulse Ox O2 Del Method 11/30/23 11:37 36.3 C L 60 18 105/61 96 Room Air 11/30/23 08:00 Room Air 11/30/23 07:24 68 11/30/23 07:14 36.4 C L 61 18 114/60 94 Room Air 11/30/23 02:55 36.3 C L 43 L 18 90/54 L 93 Room Air Laboratory Results Short CBC 11/30/23 Range/Units 05:47 WBC 4.75 L (4.8-10.8) K/ul Hgb 13.3 L (14.0-18.0) g/dl Hct 40.0 L (42.0-52.0) % Plt Count 212 (130-400) K/uL BMP 11/30/23 05:47 Sodium 135 L Potassium 4.4 Chloride 102 Carbon Dioxide 30 BUN 15 Creatinine 1.02 Glucose 95 Calcium 7.1 L Medications Administered Home Medications Medication Instructions Recorded Confirmed Last Taken aspirin 81 mg tablet,delayed 81 mg PO QAM 01/14/20 11/28/23 11/28/23 release (Amanda Low Dose Aspirin) cyanocobalamin (vitamin B-12) 1,000 mcg PO QAM 01/14/20 11/28/23 11/28/23 1,000 mcg capsule isosorbide mononitrate 30 mg 30 mg PO QAM 01/14/20 11/28/23 11/28/23 tablet,extended release 24 hr metformin 1,000 mg tablet 1,000 mg PO BID 01/14/20 11/28/23 11/28/23 08:00 nitroglycerin 0.4 mg sublingual 0.4 mg sublingual UD PRN Chest Pain 01/14/20 11/28/23 Unknown tablet (Nitrostat) atorvastatin 40 mg tablet 40 mg PO QAM 06/22/21 11/28/23 11/28/23 furosemide 40 mg tablet 40 mg PO DAILY PRN EDEMA/FLUID 09/20/21 11/28/23 09/02/21 RETENTION albuterol sulfate 90 mcg/actuation 2 puff inhalation Q4H PRN 11/28/23 11/28/23 Unknown aerosol inhaler COUGH/SHORT OF BREATH/WHEEZING clobetasol 0.05 % topical ointment 1 applic topical BID PRN Skin 11/28/23 11/28/23 Unknown Irritation ferrous sulfate 27 mg iron tablet 27 mg PO DAILY 11/28/23 11/28/23 11/28/23 levothyroxine 112 mcg tablet 112 mcg PO DAILYBB 11/28/23 11/28/23 11/28/23 metoprolol succinate 100 mg 100 mg PO QAM 11/28/23 11/28/23 11/28/23 tablet,extended release 24 hr pantoprazole 40 mg tablet,delayed 40 mg PO BID 11/28/23 11/28/23 11/28/23 08:00 release Active Medications Generic Name Dose Route Start Last Admin Trade Name [place] PRN Reason Stop Dose Admin Aspirin 81 mg 11/29/23 09:00 11/30/23 08:09 Aspirin 81 Mg Ectab PO 12/29/23 08:59 81 mg QAM JOVANY Administration Atorvastatin Calcium 40 mg 11/29/23 09:00 11/30/23 08:10 Atorvastatin 40 Mg Tab PO 12/29/23 08:59 40 mg QAM JOVANY Administration Calcium Carbonate 1,250 mg 11/29/23 13:00 11/30/23 08:09 Calcium Carbonate 1,250 Mg/5 Ml Udc PO 12/29/23 12:59 1,250 mg BID JOVANY Administration Cyanocobalamin 1,000 mcg 11/29/23 09:00 11/30/23 08:10 Cyanocobalamin (B-12) 500 Mcg Tablet PO 12/29/23 08:59 1,000 mcg QAM JOVANY Administration Ergocalciferol 1,250 mcg 11/29/23 13:00 11/29/23 13:26 Ergocalciferol 1250 Mcg (50,000 Units) Cap PO 12/29/23 12:59 1,250 mcg Q7D@0900 JOVANY Administration Ferrous Sulfate 325 mg 11/29/23 09:00 11/30/23 08:10 Ferrous Sulfate 325 Mg Tab PO 12/29/23 08:59 325 mg DAILY JOVANY Administration Heparin Sodium/Dextrose 25,000 units in 500 mls @ 18 mls/hr 11/28/23 21:45 11/30/23 07:15 Heparin Sodium/Dextrose IV 12/28/23 21:44 900 units/hr .Q24H JOVANY 18 mls/hr Titration Protocol 900 UNITS/HR Sodium Phosphate 21 mmol/ 507 mls @ 88 mls/hr 11/30/23 08:00 11/30/23 08:09 Sodium Chloride IV 11/30/23 13:45 88 mls/hr ONE ONE Administration Insulin Aspart 0 units 11/28/23 23:59 11/30/23 08:47 Insulin Aspart Per Unit Charge SC 12/28/23 23:58 2 units ACHS JOVANY Administration Isosorbide Mononitrate 30 mg 11/29/23 09:00 11/30/23 08:09 Isosorbide [place] Extended Rel 30 Mg Tabcr PO 12/29/23 08:59 30 mg QAM JOVANY Administration Levothyroxine Sodium 112 mcg 11/29/23 06:30 11/30/23 06:29 Levothyroxine Sodium 112 Mcg Tablet PO 12/29/23 06:29 112 mcg DAILYBB JOVANY Administration Metoprolol Succinate 25 mg 11/29/23 09:00 11/30/23 08:09 Metoprolol Succ 25mg Ext Rel Tab PO 12/29/23 08:59 25 mg QAM JOVANY Administration Pantoprazole Sodium 40 mg 11/29/23 09:00 11/30/23 08:09 Pantoprazole 40 Mg Tab PO 12/29/23 08:59 40 mg BID JOVANY Administration Warfarin Sodium 5 mg 11/29/23 16:00 11/29/23 16:27 Warfarin Sod 5 Mg Tab PO 12/29/23 15:59 5 mg DAILY@1600 JOVANY Administration (2) DVT (deep venous thrombosis) Affected thrombotic vein of extremity: unspecified vein of extremity Chronicity: acute DVT location: lower extremity Laterality: bilateral Qualified Code(s): I82.403 - Acute embolism and thrombosis of unspecified deep veins of lower extremity, bilateral (3) Pulmonary embolism Acute cor pulmonale presence: without acute cor pulmonale Chronicity: acute Pulmonary embolism type: unspecified Qualified Code(s): I26.99 - Other pulmonary embolism without acute cor pulmonale
[2023-11-30 13:37] LABS: ANTI-Xa, UFH(UnfractionatedHep 0.28 IU/ml (0.3-0.7)
[2023-11-30] MEDS ORDERED: ENOXAPARIN 1 MG/KG SQ SCH (14:15)
[2023-11-30] MEDS ORDERED: ENOXAPARIN 80 MG/0.8 ML SYR SQ SCH (14:30)
[2023-11-30] MEDS: ENOXAPARIN 80 MG/0.8 ML SYR SQ SCH (16:49)
[2023-11-30 20:40] LABS: ANTI-Xa, UFH(UnfractionatedHep 0.65 IU/ml (0.3-0.7)
--- NOTE | 2023-11-30 21:59 | Electrocardiogram Report ---
Test Reason : Blood Pressure : / mmHG Vent. 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 rate has decreased BY 46 BPM Confirmed by Steve Cox ([id number]) on 11/30/2023 9:59:31 PM Referred By: Kaitlin Price Confirmed By:Steve Cox
[2023-12-01 05:15] LABS: Hemoglobin 12.7 g/dl (14.0-18.0); Mean Corpuscular Hemoglobin 31.6 pg (25.0-34.0); Mean Corpuscular Hgb Conc 33.4 g/dL (32.0-36.0); Mean Corpuscular Volume 94.5 fL (80.0-100.0); Mean Platelet Volume 9.8 fL (9.4-12.4); Platelet Count 228 K/uL (130-400); RDW Coefficient of Variation 14.8 % (11.5-14.5); RDW Standard Deviation 50.9 fL (36.4-46.3); Red Blood Count 4.02 M/uL (4.70-6.10); White Blood Count 4.42 K/ul (4.8-10.8)
[2023-12-01 05:32] LABS: BUN Creatinine Ratio 13.1 (10-20); Calcium 7.3 mg/dl (8.6-10.3); Creatinine Clr Calc Pharmacy 59.4 ml/min; Est GFR (African American) 81.9 ml/min; Est GFR (Non-African American) 70.6 ml/min; Magnesium 1.5 mg/dl (1.7-2.4); Phosphorus 2.4 mg/dl (2.5-4.9); Potassium 4.2 mmol/L (3.5-5.1)
[2023-12-01] MEDS ORDERED: SODIUM PHOSPHATE 3 MMOL/1 ML INFUSION IV STA (07:15)
[2023-12-01] MEDS: MAGNESIUM SULFATE / D5W 1 GM/100 ML BAG IV SCH (08:28)
[2023-12-01] MEDS: SODIUM PHOSPHATE 15 MMOL in SODIUM CHLORIDE 0.9% 250 ML IV STA (08:29)
[2023-12-01 09:14] LABS: INR 1.3 (0.9-1.1); Prothrombin Time 13.9 Seconds (9.0-12.0)
--- NOTE | 2023-12-01 09:22 | Hospitalist Progress Note ---
Date of Service December 01, 2023 Assessment & Plan (1) Ventricular mural thrombus: (2) DVT (deep venous thrombosis): (3) Pulmonary embolism: (4) Left leg swelling: Plan Mr. Tavera is an 83 year-old male with longstanding history of coronary heart disease, severe ischemic cardiomyopathy c/b HFrEF s/p dcICD, prior history of LV mural thrombus 2019, GIB requiring transfusion, hypothyroidism and other conditions listed below who was admitted for management of acute PE/DVT. Patient presented to OP appointment and found to have LLE swelling, which OP doppler revealed DVT. Patient sent to ED where work up revealed right pulmonary emboli. ECHO subsequently revealed recurrent LV thrombus, LVEF 25-30% Discussed case with Body Maker who reviewed ECHO: given presence of LV thrombus, warfarin is the superior option for AC. Discussed at bedside with patient. He denies any recent GI discomfort, bleeding. He notes his diarrhea has stopped. When discussing colonoscopy for future, he states he will likely "not go through with it." He is agreeable to try Coumadin once more and advised to notify for any signs of GI bleed. Attempted to trial lovenox and discharge, however, lovenox roughly 60 dollars and that is a cost patient cannot incur. Patient continues on lovenox bridge while admitted. INR 1.3, goal 2-3 #Right Hilar Pulmonary Embolism (Submassive) #Extensive DVT Left leg OP doppler revealed extensive left DVT and small right groin DVT CTA Chest:Right hilar and lobar emoboli, nonocclusive, no left sided, no RV strain on maginge CTA AB/P: Extensive left femoral DVT presents with symptomatic but hemodynamically stable PE, BNP 398 No Right ventricular strain noted on CTA In these patients, anticoagulation is the mainstay of treatment Unclear trigger, as pt is without past hx suggestive of hypercoagulable state or recent travel. Stable Trop iso known CAD and PE -Anticoagulation: Heparin drip, plan to transition to DOAC -Monitor on tele -Plan for outpatient hypercoagulability studies -Given family hx, factor V Leiden ordered per brother/patient request, pending ECHO: large nonlaminated globular llv apical thrombus Continue Warfarin 5mg tonight Continue lovenox BID INR in am Plan for AC clinic follow up to be coordinated #Elevated Troponin likely demand iso PE and known CAD asymptomatic, trend x3 monitor on tele #Left Subclavian Stenosis Focal, 80% stenosis at the origin of left subclavian artery associated with ca lcific plaquing. OP Vascular Follow up #Vitamin D deficiency #hypomagnesemia #hypocalcemia -Mag corrected from 1.1 to 2.2 Calcium 7.0, 8.5 corrected for albumin Low calcium, severely low Vit D Continue Vitamin D 1250 U q 7 days (Wednesdays) Calcium carbonate BID #Diarrhea *resolved #Unintentional weight loss Stool culture on 11/07 negative undergoing GI eval as OP, pending OP EGD/C scope---patient declines No masses/stranding identified on CT ABP #Ischemic Cardiomyopathy s/p BIPIN to LAD 2004 #Chronic HFrEF (LVEF 20% on 07/2023) #Chronic Left Mural Thrombus 2019 (visualized again on CTA) - Home diuretics: Lasix 40mg prn - GDMT: *BetaB: metoprolol succinate 25mg qam *RAAS/ Sb/ SGLT: limited 2/2 hypotension *Veno/Vasodilators: Imdur 30mg daily *ICD: 2019, last interrogated 06/2023 - Strict I/Os, daily weights -Continue ASA and statin #NSVT #HX of ?atrial flutter Per cardiology notes from 09/2023 visit: ". Elevated [id number] Score. Anticoagulation discussed, electing to continue without Coumadin anticoagulation (does not have prescription drug coverage)." continue BB Now on Coumadin #HLD Continue statin #Hypothyroidism elevated tsh 6.4, normal FT4 continue home levothyroxine #GERD continue PPI DVT lovenox w/ warfarin Dispo like 1-2 days depending on INR and ability to possibly bridge at home; will reassess in am Admission and Anticipated Discharge Date Admission Date: November 28, 2023 Subjective Patient reports moving around without pain in LLE now States swelling is much improved. Notes he feels great, no chest pain palpitation or other acute concerns INR 1.3 this am Physical Exam Constitutional: WD/WN, vitals as above Respiratory: normal respiratory effort, lungs clear to auscultation Cardiovascular: RRR, 1+ LLE edema, much improved from prior exam Results & Data Results & Data Vital Signs (Past 12 Hours) Vital Signs Temp Pulse Pulse Resp BP Pulse Ox O2 Del Method 12/01/23 07:46 36.4 C L 58 L 18 103/58 L 93 Room Air 12/01/23 02:44 36.7 C 65 17 114/72 92 Room Air 11/30/23 23:12 36.5 C 60 18 105/65 95 Room Air 11/30/23 22:26 64 Laboratory Results Short CBC 12/01/23 Range/Units 04:50 WBC 4.42 L (4.8-10.8) K/ul Hgb 12.7 L (14.0-18.0) g/dl Hct 38.0 L (42.0-52.0) % Plt Count 228 (130-400) K/uL BMP 12/01/23 04:50 Sodium 134 L Potassium 4.2 Chloride 104 Carbon Dioxide 29 BUN 13 Creatinine 0.99 Glucose 88 Calcium 7.3 L Medications Administered Home Medications Medication Instructions Recorded Confirmed Last Taken aspirin 81 mg tablet,delayed 81 mg PO QAM 01/14/20 11/28/23 11/28/23 release (Amanda Low Dose Aspirin) cyanocobalamin (vitamin B-12) 1,000 mcg PO QAM 01/14/20 11/28/23 11/28/23 1,000 mcg capsule isosorbide mononitrate 30 mg 30 mg PO QAM 01/14/20 11/28/23 11/28/23 tablet,extended release 24 hr metformin 1,000 mg tablet 1,000 mg PO BID 01/14/20 11/28/23 11/28/23 08:00 nitroglycerin 0.4 mg sublingual 0.4 mg sublingual UD PRN Chest Pain 01/14/20 11/28/23 Unknown tablet (Nitrostat) atorvastatin 40 mg tablet 40 mg PO QAM 06/22/21 11/28/23 11/28/23 furosemide 40 mg tablet 40 mg PO DAILY PRN EDEMA/FLUID 09/20/21 11/28/23 09/02/21 RETENTION albuterol sulfate 90 mcg/actuation 2 puff inhalation Q4H PRN 11/28/23 11/28/23 Unknown aerosol inhaler COUGH/SHORT OF BREATH/WHEEZING clobetasol 0.05 % topical ointment 1 applic topical BID PRN Skin 11/28/23 11/28/23 Unknown Irritation ferrous sulfate 27 mg iron tablet 27 mg PO DAILY 11/28/23 11/28/23 11/28/23 levothyroxine 112 mcg tablet 112 mcg PO DAILYBB 11/28/23 11/28/23 11/28/23 metoprolol succinate 100 mg 100 mg PO QAM 11/28/23 11/28/23 11/28/23 tablet,extended release 24 hr pantoprazole 40 mg tablet,delayed 40 mg PO BID 11/28/23 11/28/23 11/28/23 08:00 release calcium carbonate 500 mg/5 mL (as 1,250 mg (12.5 mL) PO BID #473 mL 11/30/23 Unknown calcium carb 1,250 mg/5 mL) oral suspension enoxaparin 80 mg/0.8 mL 80 mg (0.8 mL) subcut Q12H #8 mL 11/30/23 Unknown subcutaneous syringe (Lovenox) ergocalciferol (vitamin D2) 1,250 1,250 mcg PO Q7D@0900 #12 caps 11/30/23 Unknown mcg (50,000 unit) capsule warfarin 5 mg tablet 5 mg PO DAILY@1600 #30 tabs 11/30/23 Unknown Active Medications Generic Name Dose Route Start Last Admin Trade Name Basilioq PRN Reason Stop Dose Admin Aspirin 81 mg 11/29/23 09:00 12/01/23 08:29 Aspirin 81 Mg Ectab PO 12/29/23 08:59 81 mg QAM JOVANY Administration Atorvastatin Calcium 40 mg 11/29/23 09:00 12/01/23 08:29 Atorvastatin 40 Mg Tab PO 12/29/23 08:59 40 mg QAM JOVANY Administration Calcium Carbonate 1,250 mg 11/29/23 13:00 12/01/23 08:29 Calcium Carbonate 1,250 Mg/5 Ml Udc PO 12/29/23 12:59 1,250 mg BID JOVANY Administration Cyanocobalamin 1,000 mcg 11/29/23 09:00 12/01/23 08:29 Cyanocobalamin (B-12) 500 Mcg Tablet PO 12/29/23 08:59 1,000 mcg QAM JOVANY Administration Enoxaparin Sodium 80 mg 11/30/23 14:30 12/01/23 03:01 Enoxaparin 80 Mg/0.8 Ml Syr SQ 12/30/23 14:29 80 mg Q12H JOVANY Administration Ergocalciferol 1,250 mcg 11/29/23 13:00 11/29/23 13:26 Ergocalciferol 1250 Mcg (50,000 Units) Cap PO 12/29/23 12:59 1,250 mcg Q7D@0900 JOVANY Administration Ferrous Sulfate 325 mg 11/29/23 09:00 12/01/23 08:29 Ferrous Sulfate 325 Mg Tab PO 12/29/23 08:59 325 mg DAILY JOVANY Administration Magnesium Sulfate/Dextrose 1 gm in 100 mls @ 50 mls/hr 12/01/23 07:15 12/01/23 08:28 Magnesium Sulfate / D5w IV 12/01/23 13:14 50 mls/hr Q2H JOVANY Administration Sodium Phosphate 15 mmol/ 255 mls @ 88 mls/hr 12/01/23 07:19 12/01/23 08:29 Sodium Chloride IV 12/01/23 10:12 88 mls/hr NOW STA Administration Insulin Aspart 0 units 11/28/23 23:59 12/01/23 09:13 Insulin Aspart Per Unit Charge SC 12/28/23 23:58 1 units ACHS JOVANY Administration Isosorbide Mononitrate 30 mg 11/29/23 09:00 12/01/23 08:29 Isosorbide [place] Extended Rel 30 Mg Tabcr PO 12/29/23 08:59 30 mg QAM JOVANY Administration Levothyroxine Sodium 112 mcg 11/29/23 06:30 12/01/23 05:43 Levothyroxine Sodium 112 Mcg Tablet PO 12/29/23 06:29 112 mcg DAILYBB JOVANY Administration Metoprolol Succinate 25 mg 11/29/23 09:00 12/01/23 08:01 Metoprolol Succ 25mg Ext Rel Tab PO 12/29/23 08:59 Not Given QAM JOVANY Pantoprazole Sodium 40 mg 11/29/23 09:00 12/01/23 08:29 Pantoprazole 40 Mg Tab PO 12/29/23 08:59 40 mg BID JOVANY Administration Warfarin Sodium 5 mg 11/29/23 16:00 11/30/23 16:48 Warfarin Sod 5 Mg Tab PO 12/29/23 15:59 5 mg DAILY@1600 JOVANY Administration (2) DVT (deep venous thrombosis) Affected thrombotic vein of extremity: unspecified vein of extremity Chronicity: acute DVT location: lower extremity Laterality: bilateral Qualified Code(s): I82.403 - Acute embolism and thrombosis of unspecified deep veins of lower extremity, bilateral (3) Pulmonary embolism Acute cor pulmonale presence: without acute cor pulmonale Chronicity: acute Pulmonary embolism type: unspecified Qualified Code(s): I26.99 - Other pulmonary embolism without acute cor pulmonale
[2023-12-02 06:57] LABS: INR 2.2 (0.9-1.1); Prothrombin Time 22.3 Seconds (9.0-12.0)
[2023-12-02 07:03] LABS: Calcium 7.3 mg/dl (8.6-10.3); Creatinine Clr Calc Pharmacy 58.8 ml/min; Est GFR (African American) 80.9 ml/min; Est GFR (Non-African American) 69.8 ml/min; Magnesium 1.9 mg/dl (1.7-2.4); Phosphorus 2.7 mg/dl (2.5-4.9); Potassium 4.2 mmol/L (3.5-5.1)
--- NOTE | 2023-12-02 11:06 | Discharge Summary ---
Discharge Summary Date of Service December 02, 2023 Principal Dx & Hospital Course #1 = Principal Diagnosis (1) Ventricular mural thrombus: (2) DVT (deep venous thrombosis): (3) Pulmonary embolism: (4) Left leg swelling: Plan Mr. Tavera is an 83 year-old male with longstanding history of coronary heart disease, severe ischemic cardiomyopathy c/b HFrEF s/p dcICD, prior history of LV mural thrombus 2019, GIB requiring transfusion, hypothyroidism and other conditions listed below who was admitted for management of acute PE/DVT. Patient presented to OP appointment and found to have LLE swelling, which OP doppler revealed DVT. Patient sent to ED where work up revealed right pulmonary emboli. ECHO subsequently revealed recurrent LV thrombus, LVEF 25-30% Discussed case with Sewer Pipe Offbearer who reviewed ECHO: given presence of LV t hrombus, warfarin is the superior option for AC. Discussed at bedside with patient. He denies any recent GI discomfort, bleeding. He notes his diarrhea has stopped. When discussing colonoscopy for future, he states he will likely "not go through with it." He is agreeable to try Coumadin once more and advised to notify for any signs of GI bleed. Attempted to trial lovenox and discharge, however, lovenox roughly 60 dollars and that is a cost patient cannot incur. Patient continues on lovenox bridge while admitted. INR 1.3 on 11/30 with a jump to 2.2 on day of discharge. Patient remained asymptomatic and noted improved swelling in lower extremity. He denies any chest pain, palpitations, SOB/VOGEL. Patient reports understanding of PCP appointment on 12/02 at 220pm. Patient reports understanding of signs to beware of for bleeding or falls. #Right Hilar Pulmonary Embolism (Submassive) #Extensive DVT Left leg OP doppler revealed extensive left DVT and small right groin DVT CTA Chest:Right hilar and lobar emoboli, nonocclusive, no left sided, no RV strain on maginge CTA AB/P: Extensive left femoral DVT presents with symptomatic but hemodynamically stable PE, BNP 398 No Right ventricular strain noted on CTA In these patients, anticoagulation is the mainstay of treatment Unclear trigger, as pt is without past hx suggestive of hypercoagulable state or recent travel. Stable Trop iso known CAD and PE -Anticoagulation: Heparin drip, plan to transition to DOAC -Monitor on tele -Plan for outpatient hypercoagulability studies -Given family hx, factor V Leiden ordered per brother/patient request, pending ECHO: large nonlaminated globular llv apical thrombus s/p 5mg warfarin load x 3 days Discharge on 1mg warfarin daily Follow up with PCP Plan to arrange AC clinic follow up with INR in 3 days #Elevated Troponin stable likely demand iso PE and known CAD asymptomatic, trend x3 monitor on tele #Left Subclavian Stenosis Focal, 80% stenosis at the origin of left subclavian artery associated with calcific plaquing. OP Vascular Follow up #Vitamin D deficiency #hypomagnesemia #hypocalcemia -Mag corrected from 1.1 to 2.2 Calcium 7.0, 8.5 corrected for albumin Low calcium, severely low Vit D Continue Vitamin D 1250 U q 7 days (Wednesdays) Calcium carbonate BID #Diarrhea *resolved #Unintentional weight loss Stool culture on 11/07 negative undergoing GI eval as OP, pending OP EGD/C scope---patient declines No masses/stranding identified on CT ABP #Ischemic Cardiomyopathy s/p BIPIN to LAD 2004 #Chronic HFrEF (LVEF 20% on 07/2023) #Chronic Left Mural Thrombus 2019 (visualized again on CTA) - Home diuretics: Lasix 40mg prn - GDMT: *BetaB: metoprolol succinate 100mg qam *RAAS/ Sb/ SGLT: limited 2/2 hypotension *Veno/Vasodilators: Imdur 30mg daily *ICD: 2019, last interrogated 06/2023 - Strict I/Os, daily weights -Continue ASA and statin #NSVT #HX of ?atrial flutter Per cardiology notes from 09/2023 visit: ". Elevated [id number] Score. Anticoagulation discussed, electing to continue without Coumadin anticoagulation (does not have prescription drug coverage)." continue BB Now on Coumadin #HLD Continue statin #Hypothyroidism elevated tsh 6.4, normal FT4 continue home levothyroxine #GERD continue PPI Notes For Next Care Provider Close Anticoag clinic follow up INR in 3 days 12/04 Factor Leiden V pending Notable large thrombus return in LV, right sided non occlusive pulmonary emboli, BLE DVT L>R Medication Changes From Visit Discharge on 1mg warfarin daily until follow up with AC clinic Vitamin D2 q week (wednesdays) Calcium carbonate BID Admission HPI Per Admitting Provider History obtained from patient and records. Medical history significant for chronic systolic heart failure secondary to ischemic cardiomyopathy (30 to 34%, TTE 2023) status post ICD, CAD status post stent, paroxysmal atrial flutter as per records, past history LV thrombus, hypertension, hyperlipidemia, COPD, duodenitis, BPH, DM2 on oral medications, hypothyroidism, past tobacco abuse. Last confinement 2021 for left humeral fracture secondary to fall and active UGIB secondary to chronic duodenitis with ulceration and gastritis in the setting of Coumadin coagulopathy. EGD showed gastritis and duodenitis. Biopsy negative for malignancy. Patient discharged on PPI course. Coumadin held on discharge since. 1 month history of watery diarrhea symptoms without unusual abdominal pain. Weight loss of about 20 pounds in 6 months Patient denies chest pain, SOB. Outpatient stool workup last month negative. Few days ago patient noted left leg swelling more than usual without recent trauma. No chest pain or unusual SOB. Patient seen at [facility] office following PCP referral today. Outpatient colonoscopy contemplated. Patient sent for outpatient LE venous Dopplers which later showed acute deep venous thrombosis in the bilateral lower extremity Patient directed to ER by outpatient provider. IV heparin initiated at the ER. 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 Admission Exam Per Admitting Provider GENERAL: Comfortable, pleasant, slightly hard of hearing, no respiratory distress SKIN: Normal color, warm HEENT: Ross palpebral conjunctivae, no ptosis, dry buccal mucosa NECK : Supple, no tenderness CHEST : Decreased breath sounds, no tenderness HEART : Tachycardic, systolic murmur ABDOMEN: Some distention, no overt tenderness EXTREMITIES : LLE swelling without tenderness, no other conspicuous deformities noted NEUROLOGIC : Coherent, slightly hard of hearing, no other gross focality Discharge Exam Constitutional WD/WN, vitals as above Respiratory normal respiratory effort, lungs clear to auscultation Cardiovascular RRR, left lower extremity 1+ edema much improved on admission Updated Medication List Medication Instructions Recorded Confirmed Type aspirin 81 mg tablet,delayed 81 mg PO QAM 01/14/20 11/28/23 History release (Amanda Low Dose Aspirin) cyanocobalamin (vitamin B-12) 1,000 mcg PO QAM 01/14/20 11/28/23 History 1,000 mcg capsule isosorbide mononitrate 30 mg 30 mg PO QAM 01/14/20 11/28/23 History tablet,extended release 24 hr metformin 1,000 mg tablet 1,000 mg PO BID 01/14/20 11/28/23 History nitroglycerin 0.4 mg sublingual 0.4 mg sublingual UD PRN Chest Pain 01/14/20 11/28/23 History tablet (Nitrostat) atorvastatin 40 mg tablet 40 mg PO QAM 06/22/21 11/28/23 History furosemide 40 mg tablet 40 mg PO DAILY PRN EDEMA/FLUID 09/20/21 11/28/23 History RETENTION albuterol sulfate 90 mcg/actuation 2 puff inhalation Q4H PRN 11/28/23 11/28/23 History aerosol inhaler COUGH/SHORT OF BREATH/WHEEZING clobetasol 0.05 % topical ointment 1 applic topical BID PRN Skin 11/28/2311/27 History Irritation ferrous sulfate 27 mg iron tablet 27 mg PO DAILY 11/28/23 11/28/23 History levothyroxine 112 mcg tablet 112 mcg PO DAILYBB 11/28/23 11/28/23 History metoprolol succinate 100 mg 100 mg PO QAM 11/28/23 11/28/23 History tablet,extended release 24 hr pantoprazole 40 mg tablet,delayed 40 mg PO BID 11/28/23 11/28/23 History release calcium carbonate 500 mg/5 mL (as 1,250 mg (12.5 mL) PO BID #473 mL 11/30/23 Rx calcium carb 1,250 mg/5 mL) oral suspension ergocalciferol (vitamin D2) 1,250 1,250 mcg PO Q7D@0900 #12 caps 11/30/23 Rx mcg (50,000 unit) capsule warfarin 1 mg tablet 1 mg PO DAILY #30 tabs 12/02/23 Rx Hospital Stay Data Consultations 11/28/23 21:47 ED Decision to Admit Stat Diagnostic Imagining Performed 11/28/23 17:26 CT abd pelvis IV con only Stat CT angio chest PE protocol Stat Pending Results Patient Have Any Pending Studies at Discharge: Yes (Factor Leiden V) Discharge Instructions Given to Patient (Per Discharging Provider) You were admitted for left leg swelling and found to have extensive clots in your left leg, lung clot, and heart clot. You were started on warfarin to help prevent further clots from forming. You will need to follow up with a primary care doctor, your appointment 12/02 and 2:20pm. You will need to have an INR check in 3 days. Please continue taking Coumadin 1mg tablet every day around 4pm daily. You were noted to have low vitamin D and low calcium. These are important for bone strength. Please continue to take Vitamin D2 1250mcg every Sunday. Please take calcium carbonate two times a day as prescribed. Total Time Total Time Spent Total Time Spent (In Minutes): 45
[2023-12-02] MEDS ORDERED: WARFARIN SOD 1 MG TAB PO SCH (16:00)
== END 2023-12-02 13:29 | disposition home or self-care (01) | DRG 299 ==
LOC: ED 15:47 → 4W 22:42
DX: E11.9 Type 2 diabetes mellitus without complications; E83.42 Hypomagnesemia; I50.22 Chronic systolic (congestive) heart failure; I82.452 Acute embolism and thrombosis of left peroneal vein; Z95.810 Presence of automatic (implantable) cardiac defibrillator; I26.99 Other pulmonary embolism without acute cor pulmonale; I25.10 Atherosclerotic heart disease of native coronary artery without angina pectoris; I24.89 Other forms of acute ischemic heart disease; Z79.84 Long term (current) use of oral hypoglycemic drugs; J44.9 Chronic obstructive pulmonary disease, unspecified; Z79.82 Long term (current) use of aspirin; I47.20 Ventricular tachycardia, unspecified; E03.9 Hypothyroidism, unspecified; I82.442 Acute embolism and thrombosis of left tibial vein; Z79.899 Other long term (current) drug therapy; R63.4 Abnormal weight loss; I11.0 Hypertensive heart disease with heart failure; I48.92 Unspecified atrial flutter; I82.4Y1 Acute embolism and thrombosis of unspecified deep veins of right proximal lower extremity; E78.5 Hyperlipidemia, unspecified; Z79.01 Long term (current) use of anticoagulants; I51.3 Intracardiac thrombosis, not elsewhere classified; Z79.890 Hormone replacement therapy; E83.51 Hypocalcemia

== ENCOUNTER 2023-12-05 15:52 | Inpatient (IN) ==
--- NOTE | 2023-12-05 16:32 | Emergency Department Note ---
Impression & Plan GI bleed, Subtherapeutic anticoagulation ED Provider Note Diagnosis: Subtherapeutic INR, GI bleed Disposition: Admission CHIEF COMPLAINT: Sent from family doctor HPI: Patient is a 83-year-old male with significant recent medical history of ventricular mural thrombus, pulmonary embolism and DVT on warfarin. Patient was at follow-up appointment with his doctor and they placed him on an pvc monitor and told him that he was having abnormal rhythms. Patient does have a pacemaker. Patient states he was not having any symptoms while that reported episode occurred. Patient denies any active symptoms currently today. Patient has no chest pain shortness of breath lightheadedness syncope or near syncope. Patient denies any dizziness. Patient has [employer] pacemaker device. PAST MEDICAL HISTORY: See Below PAST SURGICAL HISTORY: See Below SOCIAL HISTORY: See Below HOME MEDICATIONS: See Below ALLERGIES: See Below VITALS: See Below PHYSICAL EXAMINATION: GENERAL: Well appearing, well nourished, NAD, non-toxic. EYE EXAM: Normal conjunctiva. OROPHARYNX: Moist mucus membranes. Grossly normal dentition. NECK: Supple, LUNGS: Clear to auscultation. Normal chest wall mechanics. HEART: NSR ABDOMEN: Abdomen soft, non-tender, normo-active bowel sounds, no masses, no rebound or guarding BACK: No CVA TTP. SKIN: No rashes and no bruising. UPPER EXTREMITIES: Upper extremities are grossly normal LOWER EXTREMITIES: Grossly normal, no edema. NEURO EXAM: A&O x3,, normal speech, moves all 4 extremities PSYCH: Cooperative MEDICAL DECISION MAKING: Reviewed external documents: Discharge summary 1 week prior History obtained from: Patient ER Course: Patient 83-year-old male presenting from doctor's office after reportedly being hooked up to EKG machine and having abnormal heart rhythm. Patient states he was nonsymptomatic throughout the doctor telling him his rhythm was abnormal. Patient asymptomatic currently. Patient's EKG here shows atrial paced rhythm. Patient has a [employer] device and it was interrogated and I discussed with Cesar of the [employer] team who reviewed the reports and there is been no events in over 1 week's time. Patient's lab work reported no electrolyte abnormalities. Patient's troponin was not elevated. Patient's INR was 1.5. I went and talked to the patient about his INR being low and about if he was taking his medications. Patient states he came home from the hospital took 1 dose of warfarin and the next day had blood in his stool so he stopped taking it. Patient states as of yesterday he had a bowel movement without blood present. Case discussed with hospitalist service due to the patient's recent diagnosis of mural thrombus submassive PE and DVT that he would need to be anticoagulated and started on weight-based heparin without bolus. Patient was educated on the need for anticoagulation due to risk of potential stroke from his mural thrombus. Labs (independently interpreted) are significant for: Subtherapeutic INR Imaging results (independently interpreted): Chest x-ray with concern for potential pulmonary infarct right upper lobe EKG interpretation (independently interpreted): Atrially paced rhythm Medications given: Heparin drip Consultants: Hospitalist Vital Signs: reviewed and remarkable for: no significant abnormalities Note Past Med/Surg History Problem List (Updated 12/05/23 @ 18:42 by Perez Norton DO) Subtherapeutic anticoagulation (Acute) GI bleed (Acute) Ventricular mural thrombus Left leg swelling (Acute) DVT (deep venous thrombosis) (Acute) Pulmonary embolism (Acute) Duodenal ulcer Encounter for pre-operative examination Epigastric abdominal pain Acute GI bleeding (Acute) Elevated troponin I level (Acute) ABLA (acute blood loss anemia) (Acute) Elevated INR (Acute) Supratherapeutic INR Sinus tachycardia LV (left ventricular) mural thrombus Closed fracture of left proximal humerus Sinus bradycardia Ischemic cardiomyopathy Pt admitted for elective ICD due to ICM. Pt underwent procedure without any complications; monitored overnight and discharged home. Medical History Diabetes mellitus, type 2 History of blood transfusion last 06/23/21 @ [facility] History of GI bleed History of left heart catheterization 1991 [place], NO STENTS 2004 [facility], UNSURE OF STENTS Hyperlipidemia Hypertension ICD (implantable cardioverter-defibrillator) in place meditronic Ischemic cardiomyopathy Pt admitted for elective ICD due to ICM. Pt underwent procedure without any complications; monitored overnight and discharged home. Osteoarthritis Poor historian Sinus bradycardia Surgical History History of adenoidectomy History of carpal tunnel release of both wrists History of cataract surgery BOTH EYES History of colonoscopy 5 YEARS AGO History of esophagogastroduodenoscopy (EGD) last 06/24/21 @ [facility] History of implantable cardioverter-defibrillator (ICD) placement (~03/23/20) meditronic History of left shoulder replacement History of tonsillectomy History of tooth extraction Family History Other No family history of adverse response to anesthesia Social History Smoking Status: Unknown if ever smoked Second Hand Exposure: No; Do You Dip or Chew Tobacco: No; Hx Alcohol Use: Yes Alcohol type: beer and wine Hx Substance Use: No Preferred Language: Guyanese Communication Ability: Effective Control Inspector Required: No Beliefs That Will Affect Care: None Current Living Situation: Alone Current Living Situation Comment: home with nephews and brother nearby Feels Safe at Home: Yes Assistive Devices: None Allergies Allergies Allergy/AdvReac Type Severity Reaction Status Date / Time No Known Allergies Allergy Verified 12/05/23 18:07 Home Meds Home Medications Medication Instructions Recorded Confirmed aspirin 81 mg tablet,delayed 81 mg PO QAM 01/14/20 12/05/23 release (Amanda Low Dose Aspirin) cyanocobalamin (vitamin B-12) 1,000 mcg PO QAM 01/14/20 12/05/23 1,000 mcg capsule isosorbide mononitrate 30 mg 30 mg PO QAM 01/14/20 12/05/23 tablet,extended release 24 hr metformin 1,000 mg tablet 1,000 mg PO BID 01/14/20 12/05/23 nitroglycerin 0.4 mg sublingual 0.4 mg sublingual UD PRN Chest Pain 01/14/20 12/05/23 tablet (Nitrostat) atorvastatin 40 mg tablet 40 mg PO QAM 06/22/21 12/05/23 albuterol sulfate 90 mcg/actuation 2 puff inhalation Q4H PRN 11/28/23 12/05/23 aerosol inhaler COUGH/SHORT OF BREATH/WHEEZING clobetasol 0.05 % topical ointment 1 applic topical BID PRN Skin 11/28/23 12/05/23 Irritation ferrous sulfate 27 mg iron tablet 27 mg PO DAILY 11/28/23 12/05/23 levothyroxine 112 mcg tablet 112 mcg PO DAILYBB 11/28/23 12/05/23 metoprolol succinate 100 mg 100 mg PO QAM 11/28/23 12/05/23 tablet,extended release 24 hr pantoprazole 40 mg tablet,delayed 40 mg PO BID 11/28/23 12/05/23 release Previous Rx's Medication Instructions Recorded calcium carbonate 500 mg/5 mL (as 1,250 mg (12.5 mL) PO BID #473 mL 11/30/23 calcium carb 1,250 mg/5 mL) oral suspension ergocalciferol (vitamin D2) 1,250 1,250 mcg PO Q7D@0900 #12 caps 11/30/23 mcg (50,000 unit) capsule warfarin 1 mg tablet 1 mg PO DAILY #30 tabs 12/02/23 Results & Data (ED) Vital Signs Vital Signs - 24 hr 12/05/23 15:55 12/05/23 16:18 12/05/23 16:19 Temperature 36.8 C Temperature Source Temporal Artery Scan Pulse Rate 74 66 Pulse Rate from SpO2 Sensor Respiratory Rate 16 15 Respiratory Effort / Characteristics Non-Labored Respiratory Depth Normal Respiratory Pattern Regular Blood Pressure 111/63 Blood Pressure Mean 79 Pulse Oximetry 96 96 Oxygen Delivery Method Room Air Room Air Oxygen Flow Rate 0 Sepsis Recent Fever Within 48 Hours No Sepsis New/Unexplained Change in Mental Status N/A Sepsis Action Taken by Nursing No Action Required 12/05/23 16:20 12/05/23 16:21 12/05/23 16:22 Temperature Temperature Source Pulse Rate 62 54 L Pulse Rate from SpO2 Sensor Respiratory Rate 22 Respiratory Effort / Characteristics Respiratory Depth Respiratory Pattern Blood Pressure 111/62 Blood Pressure Mean 78 Pulse Oximetry Oxygen Delivery Method Oxygen Flow Rate Sepsis Recent Fever Within 48 Hours Sepsis New/Unexplained Change in Mental Status Sepsis Action Taken by Nursing 12/05/23 16:22 12/05/23 16:22 12/05/23 16:30 Temperature Temperature Source Pulse Rate Pulse Rate from SpO2 Sensor Respiratory Rate Respiratory Effort / Characteristics Respiratory Depth Respiratory Pattern Blood Pressure 111/62 111/62 101/58 L Blood Pressure Mean 78 78 74 Pulse Oximetry Oxygen Delivery Method Oxygen Flow Rate Sepsis Recent Fever Within 48 Hours Sepsis New/Unexplained Change in Mental Status Sepsis Action Taken by Nursing 12/05/23 16:30 12/05/23 16:30 12/05/23 16:39 Temperature Temperature Source Pulse Rate 64 63 Pulse Rate from SpO2 Sensor 60 59 L Respiratory Rate 17 21 Respiratory Effort / Characteristics Respiratory Depth Respiratory Pattern Blood Pressure 101/58 L Blood Pressure Mean 74 Pulse Oximetry 98 99 Oxygen Delivery Method Oxygen Flow Rate Sepsis Recent Fever Within 48 Hours Sepsis New/Unexplained Change in Mental Status Sepsis Action Taken by Nursing 12/05/23 16:45 12/05/23 16:45 12/05/23 17:00 Temperature Temperature Source Pulse Rate Pulse Rate from SpO2 Sensor Respiratory Rate Respiratory Effort / Characteristics Respiratory Depth Respiratory Pattern Blood Pressure 103/69 103/69 108/58 L Blood Pressure Mean 84 84 88 Pulse Oximetry Oxygen Delivery Method Oxygen Flow Rate Sepsis Recent Fever Within 48 Hours Sepsis New/Unexplained Change in Mental Status Sepsis Action Taken by Nursing 12/05/23 17:00 12/05/23 17:00 12/05/23 17:00 Temperature Temperature Source Pulse Rate Pulse Rate from SpO2 Sensor Respiratory Rate Respiratory Effort / Characteristics Respiratory Depth Respiratory Pattern Blood Pressure 108/58 L 108/58 L 108/58 L Blood Pressure Mean 88 88 88 Pulse Oximetry Oxygen Delivery Method Oxygen Flow Rate Sepsis Recent Fever Within 48 Hours Sepsis New/Unexplained Change in Mental Status Sepsis Action Taken by Nursing 12/05/23 17:03 12/05/23 17:24 12/05/23 17:30 Temperature Temperature Source Pulse Rate 61 60 Pulse Rate from SpO2 Sensor 64 59 L Respiratory Rate 12 15 Respiratory Effort / Characteristics Respiratory Depth Respiratory Pattern Blood Pressure 118/76 Blood Pressure Mean 86 Pulse Oximetry 96 97 Oxygen Delivery Method Oxygen Flow Rate Sepsis Recent Fever Within 48 Hours Sepsis New/Unexplained Change in Mental Status Sepsis Action Taken by Nursing 12/05/23 17:30 Temperature Temperature Source Pulse Rate 58 L Pulse Rate from SpO2 Sensor 58 L Respiratory Rate 19 Respiratory Effort / Characteristics Respiratory Depth Respiratory Pattern Blood Pressure Blood Pressure Mean Pulse Oximetry 99 Oxygen Delivery Method Oxygen Flow Rate Sepsis Recent Fever Within 48 Hours Sepsis New/Unexplained Change in Mental Status Sepsis Action Taken by Nursing Laboratory Data 12/05/23 16:25 12/05/23 16:25 Lab Results 12/05/23 12/05/23 Range/Units 16:25 16:37 WBC 5.09 (4.8-10.8) K/ul RBC 3.84 L (4.70-6.10) M/uL Hgb 12.0 L (14.0-18.0) g/dl POC Hgb 12.6 L (14.0-18.0) g/dl Hct 37.4 L (42.0-52.0) % POC Hct 37 L (42-52) % MCV 97.4 (80.0-100.0) fL MCH 31.3 (25.0-34.0) pg MCHC 32.1 (32.0-36.0) g/dL RDW Std Deviation 54.0 H (36.4-46.3) fL RDW Coeff of Nicole 15.1 H (11.5-14.5) % Plt Count 310 (130-400) K/uL MPV 9.9 (9.4-12.4) fL Immature Gran % (Auto) 0.6 % Neut % (Auto) 49.3 % Lymph % (Auto) 34.2 % [place] % (Auto) 14.9 % Eos % (Auto) 0.6 % Baso % (Auto) 0.4 % Neut # (Auto) 2.51 (1.40-6.50) K/uL Lymph # (Auto) 1.74 (1.20-3.40) K/uL [place] # (Auto) 0.76 H (0.11-0.59) K/uL Eos # (Auto) 0.03 (0.00-0.50) K/uL Baso # (Auto) 0.02 (0.00-0.20) K/uL Immature Gran # (Auto) 0.03 (0.01-0.20) K/uL PT 15.8 H (9.0-12.0) Seconds INR 1.5 H (0.9-1.1) APTT 32 H (21-31) Seconds PTT Ratio 1.2 POC Sodium 138 (135-144) mmol/L Sodium 136 (136-145) mmol/L POC Potassium 4.3 (3.3-5.0) mmol/L Potassium 4.3 (3.5-5.1) mmol/L POC Chloride 101 (101-112) mmol/L Chloride 104 (98-107) mmol/L Carbon Dioxide 29 (21-32) mmol/L POC Total CO2 26 (24-31) mmol/L Anion Gap 3 (3-11) POC Anion Gap 16.0 (16-25) mmol/L POC BUN 15 (7-18) mg/dl BUN 18 (6-23) mg/dl Creatinine 1.19 (0.6-1.4) mg/dl POC Creatinine 1.3 (0.6-1.3) mg/dl Est Cr Clr Drug Dosing 46.3 ml/min Est GFR ( Amer) 65.5 ml/min Est GFR (Non-Af Amer) 56.5 ml/min BUN/Creatinine Ratio 15.1 (10-20) Glucose 84 (70-99(Fasting)) mg/dl POC Glucose (other) 85 (70-99) mg/dl Calcium 7.7 L (8.6-10.3) mg/dl POC Ioniz Calcium Leo 1.18 (1.12-1.32) mmol/l Total Bilirubin 0.3 (0.2-1.0) mg/dl AST 29 (13-39) U/L ALT 18 (7-52) U/L Alkaline Phosphatase 99 (34-104) U/L Troponin I High Sens 13.6 (0-20) pg/ml Total Protein 5.3 L (6.0-8.3) gm/dl Albumin 2.1 L (3.4-5.0) gm/dl Globulin 3.2 (2.5-4.0) gm/dl Albumin/Globulin Ratio 0.7 L (0.9-2) Lipase 67 (11-82) U/L Administered Medications Heparin Sodium/Dextrose (Heparin Sodium/Dextrose) 25,000 units in 500 mls @ 26 mls/hr IV .[id number] [facility]; Protocol Stop: 01/04/24 18:14 Last Admin: 12/05/23 18:09 Dose: 1,300 units/hr, 26 mls/hr Documented By: KV Co-signed By: CHICO Imaging Data Radiologist's Impression: Chest X-Ray 12/05/23 16:16 SINGLE VIEW CHEST CLINICAL HISTORY: Atypical chest pain FINDINGS: An AP, portable, upright chest radiograph is compared to study dated 06/22/2021 and correlated with chest CT dated 11/28/2023. A 2-lead cardiac AICD is unchanged in position. The heart is enlarged noting atherosclerotic calcification of the thoracic aorta. There is pulmonary vascular congestion. Emphysema and chronic interstitial thickening is similar to previous. There are developing airspace opacities in the right upper lobe. No large pleural effusion is identified. Scarring/atelectasis is noted at the lung bases. No pneumothorax is seen. The skeletal structures are osteopenic. Postsurgical changes partially visualized in the left proximal humerus. IMPRESSION: 1. Cardiomegaly and AICD with pulmonary vascular congestion. 2. Emphysema. 3. There are developing airspace opacities in the right upper lobe. This could represent a mild pneumonitis or possibly pulmonary infarct given the recent pulmonary embolus. Correlate clinically. Radiographic follow-up to resolution is recommended. ACT 112: Negative or not required by law. Electronically signed by: Rafael Warner M.D. 12/05/2023 4:49 PM Discharge Plan Visit Data Chief Complaint: Cardiac Assessment Stated Complaint: BLOOD CLOTS/LEGS/HEART, LOW BP, DOC REF, ADMIT ED Provider: Perez Norton Discharge Problem: GI bleed, Subtherapeutic anticoagulation Forms Stand Alone Forms: My [facility] Accion Prescriptions Prescriptions: No Action isosorbide mononitrate 30 mg Tablet Extended Release 24 Hr 30 mg PO QAM aspirin [Amanda Low Dose Aspirin] 81 mg Tablet,Delayed Release (Dr/Ec) 81 mg PO QAM metformin 1,000 mg Tablet 1,000 mg PO BID nitroglycerin [Nitrostat] 0.4 mg Tablet, Sublingual 0.4 mg sublingual UD PRN (Reason: Chest Pain) Rx Instructions: one tab under tongue as needed for chest pain maximum 3 doses cyanocobalamin (vitamin B-12) 1,000 mcg Capsule 1,000 mcg PO QAM atorvastatin 40 mg tablet 40 mg PO QAM metoprolol succinate 100 mg tablet extended release 24 hr 100 mg PO QAM pantoprazole 40 mg tablet,delayed release (DR/EC) 40 mg PO BID clobetasol 0.05 % ointment 1 applic TOPICAL BID PRN (Reason: Skin Irritation) albuterol sulfate 90 mcg/actuation Hfa Aerosol Inhaler 2 puff INHALATION Q4H PRN (Reason: COUGH/SHORT OF BREATH/WHEEZING) levothyroxine 112 mcg tablet 112 mcg PO DAILYBB ferrous sulfate 27 mg iron Tablet 27 mg PO DAILY Rx Instructions: Pt unsure of this medication at this date/time calcium carbonate 500 mg/5 mL (1,250 mg/5 mL) Suspension 1,250 mg PO BID Qty: 473 0RF Rx Instructions: Pt hasn't started this medication yet ergocalciferol (vitamin D2) 1,250 mcg (50,000 unit) Capsule 1,250 mcg PO Q7D@0900 Qty: 12 0RF Rx Instructions: Sunday warfarin 1 mg tablet 1 mg PO DAILY Qty: 30 0RF Rx Instructions: Per patient, he started this on 12/03/23 and has only taken 1 dose. Referrals Referrals: Kaitlin Price MD [Primary Care Provider] -
--- NOTE | 2023-12-05 16:50 | XRay Report ---
SINGLE VIEW CHEST CLINICAL HISTORY: Atypical chest pain FINDINGS: An AP, portable, upright chest radiograph is compared to study dated 06/22/2021 and correlat ed with chest CT dated 11/28/2023. A 2-lead cardiac AICD is unchanged in position. The heart is enlarge d noting atherosclerotic calcification of the thoracic aorta. There is pulmonary vascular congestion. Emphysema and chronic interstitial thickening is similar to previous. There are developing airspace opacities in the right upper lobe. No large pleural effusion is identified. Scarring/atelectasis is n oted at the lung bases. No pneumothorax is seen. The skeletal structures are osteopenic. Postsurgical changes partially visualized in the left proximal humerus. IMPRESSION: 1. Cardiomegaly and AICD with pulmonary vascular congestion. 2. Emphysema. 3. There are developing airspace opacities in the right upper lobe. This could represent a mild pneum onitis or possibly pulmonary infarct given the recent pulmonary embolus. Correlate clinically. Radiog raphic follow-up to resolution is recommended. ACT 112: Negative or not required by law. Electronically signed by: Rafael Warner M.D. 12/05/2023 4:49 PM
[2023-12-05 16:54] LABS: iSTAT Creatinine 1.3 mg/dl (0.6-1.3); iSTAT Hemoglobin 12.6 g/dl (14.0-18.0); iSTAT Ionized Calcium 1.18 mmol/l (1.12-1.32); iSTAT Potassium 4.3 mmol/L (3.3-5.0)
[2023-12-05 17:04] LABS: Basophils # (auto) 0.02 K/uL (0.00-0.20); Basophils % (auto) 0.4 %; Eosinophils # (auto) 0.03 K/uL (0.00-0.50); Eosinophils % (auto) 0.6 %; Hematocrit (blood only) 37.4 % (42.0-52.0); Immature Granulocytes # (auto) 0.03 K/uL (0.01-0.20); Immature Granulocytes % (auto) 0.6 %; Lymphocytes # (auto) 1.74 K/uL (1.20-3.40); Lymphocytes % (auto) 34.2 %; Mean Corpuscular Hemoglobin 31.3 pg (25.0-34.0); Mean Corpuscular Hgb Conc 32.1 g/dL (32.0-36.0); Mean Corpuscular Volume 97.4 fL (80.0-100.0); Mean Platelet Volume 9.9 fL (9.4-12.4); Monocytes # (auto) 0.76 K/uL (0.11-0.59); Monocytes % (auto) 14.9 %; Neutrophils # (auto) 2.51 K/uL (1.40-6.50); Neutrophils % (auto) 49.3 %; Platelet Count 310 K/uL (130-400); RDW Coefficient of Variation 15.1 % (11.5-14.5); Red Blood Count 3.84 M/uL (4.70-6.10); White Blood Count 5.09 K/ul (4.8-10.8)
[2023-12-05 17:19] LABS: Albumin Globulin Ratio 0.7 (0.9-2); Albumin Level 2.1 gm/dl (3.4-5.0); BUN Creatinine Ratio 15.1 (10-20); Bilirubin,Total 0.3 mg/dl (0.2-1.0); Calcium 7.7 mg/dl (8.6-10.3); Creatinine Clr Calc Pharmacy 46.3 ml/min; Est GFR (African American) 65.5 ml/min; Est GFR (Non-African American) 56.5 ml/min; Globulin 3.2 gm/dl (2.5-4.0); Potassium 4.3 mmol/L (3.5-5.1); Total Protein 5.3 gm/dl (6.0-8.3)
[2023-12-05 17:25] LABS: INR 1.5 (0.9-1.1); Partial Thromboplastin Ratio 1.2; Partial Thromboplastin Time 32 Seconds (21-31); Prothrombin Time 15.8 Seconds (9.0-12.0); Troponin I High Sensitivity 13.6 pg/ml (0-20)
--- NOTE | 2023-12-05 18:03 | History & Physical Report ---
Date of Service December 05, 2023 Assessment & Plan (1) GI bleed: Plan: Patient is 83 year old male with PMH HTN, HLD, ischemic cardiomyopathy, history [place], chronic HFrEF, s/p defibrillator, h/o NSVT, history LV mural thrombus, h/o GI bleed on Coumadin, duodenitis, DM II, hypothyroidism, GERD, current DVT and PE anticoagulated on Coumadin and others listed below presented to ER for rectal bleeding yesterday. No rectal bleeding reported today. In ER vitals stable. Hgb: 12. Was 12.7 on 12/01/23. INR: 1.5 NPO for now Type and cross PRBCs and hold. Monitor H&H Hemoccult stools Hold Coumadin and aspirin On Heparin IV, monitor closely Continue home PPI CBC, BMP in am GI consult Blood consent was obtained from the patient as delegated by Dr. Mahan. Risks and benefits were explained. All questions were answered, and the patient (or patient delegate) was offered the opportunity to discuss with attending physician and declined. (2) Subtherapeutic anticoagulation: (3) Pulmonary embolism: (4) DVT (deep venous thrombosis): (5) Ventricular mural thrombus: Plan: Recent hospitalization 11/28/2023-12/02/2023 for ventricular mural thrombus, extensive left leg DVT, submassive PE and is anticoagulated on Coumadin. No hypoxia. Denies CP, SOB INR: 1.5 Hold Coumadin with rectal bleeding On Heparin IV, monitor closely (6) Ischemic cardiomyopathy: (7) ICD (implantable cardioverter-defibrillator) in place: (8) Chronic HFrEF (heart failure with reduced ejection fraction): Plan: 11/29/2023 echo: EF: 25-30%, large left ventricular apical thrombus, extensive area of myocardial thinning and akinesis anterior, anterior septal, inferior septal, inferior and apical monterroso, grade 1 diastolic dysfunction, no pericardial effusion Device was interrogated by ER today and reported no abnormal rhythms recorded today. Holding aspirin with rectal bleeding Continue metoprolol succinate, isosorbide, atorvastatin (9) History of supraventricular tachycardia: Plan: History NSVT Continue metoprolol succinate (10) Diabetes mellitus, type 2: Plan: A1c: 5.7 on 08/16/23 Hold home metformin Novolog sliding scale correction only at this time A1c in AM (11) Hyperlipidemia: Plan: Continue atorvastatin (12) Hypothyroidism: Plan: Continue levothyroxine (13) Vitamin D deficiency: Plan: Continue vitamin D DVT Prophylaxis On IV Heparin for DVT/PE present prior to admission Admit PCU Full Code as per discussion with pt Follows with Dr Dixon Nyaak for routine care Pt was seen and care coordinated with Dr Mahan. See addendum I spent a total of 78 minutes reviewing notes, outpatient records, labs, medication, coordinating, documenting and providing care for this patient excluding time spent in the performance of separately billed services. History of Present Illness Chief Complaint: referred by for rectal bleeding Primary Care Provider: Kaitlin Price MD Patient is 83 year old male with PMH HTN, HLD, ischemic cardiomyopathy, history [place], chronic HFrEF, s/p defibrillator, h/o NSVT, history LV mural thrombus, h/o GI bleed on Coumadin, duodenitis, DM II, hypothyroidism, GERD, current DVT and PE anticoagulated on Coumadin, and others listed below presented to ER at referred of outpatient nephrology today for rectal bleeding. Recent hospitalization 11/28/2023-12/02/2023 for ventricular mural thrombus, extensive left leg DVT, submassive PE. Anticoagulation was discussed as patient with history LV mural thrombus with GI bleeding on Coumadin in past. Cardiology consulted who felt warfarin was superior option given his LV thrombus. Patient was anticoagulated on warfarin with therapeutic INR on day of discharge 12/02/2023 per note review. Patient states yesterday he had 4 episodes of formed dark red bloody stool. Denies any abdominal pain. Seen at PCP office 12/04/23 for rectal bleeding and INR was 2.0. Patient states hasn't had Coumadin for a day. Seen at outpatient nephrology today and referred to ER for further evaluation due to reported GI bleeding and complex medical history. Patient states today had couple loose stools without any noted blood. He states BLE edema since hospital admission that he feels is the same. Denies fever/chills, diaphoresis, N/V, constipation, ALVARES, dizziness, syncope, vision changes, neck pain, CP, SOB, orthopnea, palpitations, cough, sore throat, rhinorrhea, epistaxis, abdominal pain, paresthesias, weakness, extremity weakness, rashes, urinary symptoms. Pacer was interrogated by ER today and reported no abnormal rhythms recorded today. Allergies Allergy/AdvReac Type Severity Reaction Status Date / Time No Known Allergies Allergy Verified 12/05/23 18:07 Home Medications Medication Instructions Recorded Confirmed Type aspirin 81 mg tablet,delayed 81 mg PO QAM 01/14/20 12/05/23 History release (Amanda Low Dose Aspirin) cyanocobalamin (vitamin B-12) 1,000 mcg PO QAM 01/14/20 12/05/23 History 1,000 mcg capsule isosorbide mononitrate 30 mg 30 mg PO QAM 01/14/20 12/05/23 History tablet,extended release 24 hr metformin 1,000 mg tablet 1,000 mg PO BID 01/14/20 12/05/23 History nitroglycerin 0.4 mg sublingual 0.4 mg sublingual UD PRN Chest Pain 01/14/20 12/05/23 History tablet (Nitrostat) atorvastatin 40 mg tablet 40 mg PO QAM 06/22/21 12/05/23 History albuterol sulfate 90 mcg/actuation 2 puff inhalation Q4H PRN 11/28/23 12/05/23 History aerosol inhaler COUGH/SHORT OF BREATH/WHEEZING clobetasol 0.05 % topical ointment 1 applic topical BID PRN Skin 11/28/23 12/05/23 History Irritation ferrous sulfate 27 mg iron tablet 27 mg PO DAILY 11/28/23 12/05/23 History levothyroxine 112 mcg tablet 112 mcg PO DAILYBB 11/28/23 12/05/23 History metoprolol succinate 100 mg 100 mg PO QAM 11/28/23 12/05/23 History tablet,extended release 24 hr pantoprazole 40 mg tablet,delayed 40 mg PO BID 11/28/23 12/05/23 History release ergocalciferol (vitamin D2) 1,250 1,250 mcg PO Q7D@0900 #12 caps 11/30/23 12/05/23 Rx mcg (50,000 unit) capsule warfarin 1 mg tablet 1 mg PO DAILY #30 tabs 12/02/23 12/05/23 Rx Past Med/Surg History Problem List (Updated 12/05/23 @ 18:59 by Mary Ramirez PA-C) Hypocalcemia Vitamin D deficiency Hypothyroidism Hyperlipidemia Diabetes mellitus, type 2 History of supraventricular tachycardia Chronic HFrEF (heart failure with reduced ejection fraction) ICD (implantable cardioverter-defibrillator) in place [facility] Subtherapeutic anticoagulation (Acute) GI bleed (Acute) Ventricular mural thrombus Left leg swelling (Acute) DVT (deep venous thrombosis) (Acute) Pulmonary embolism (Acute) Duodenal ulcer Encounter for pre-operative examination Epigastric abdominal pain Acute GI bleeding (Acute) Elevated troponin I level (Acute) ABLA (acute blood loss anemia) (Acute) Elevated INR (Acute) Supratherapeutic INR Sinus tachycardia LV (left ventricular) mural thrombus Closed fracture of left proximal humerus Sinus bradycardia Ischemic cardiomyopathy Pt admitted for elective ICD due to ICM. Pt underwent procedure without any complications; monitored overnight and discharged home. Medical History History of blood transfusion last 06/23/21 @ [facility] ICD [facility]implant[facility] cardio[facility] History of left heart catheterization 1991 [facility], NO STENTS 2004 [facility], UNSURE OF STENTS Osteoarthritis History of GI bleed Diabetes mellitus, type 2 Hyperlipidemia Hypertension Surgical History History of implantable cardioverter-defibrillator (ICD) placement (~03/23/20) meditronic History of left shoulder replacement History of esophagogastroduodenoscopy (EGD) last 06/24/21 @ [facility] History of carpal tunnel release of both wrists History of colonoscopy 5 YEARS AGO History of cataract surgery BOTH EYES History of tooth extraction History of adenoidectomy History of tonsillectomy Family History Other No family history of adverse response to anesthesia Social History Smoking Status: Unknown if ever smoked Second Hand Exposure: No; Do You Dip or Chew Tobacco: No; Hx Alcohol Use: Yes Alcohol type: beer and wine Hx Substance Use: No Preferred Language: Thai Communication Ability: Effective Machine Boss Required: No Beliefs That Will Affect Care: None Current Living Situation: Alone Current Living Situation Comment: home with nephews and brother nearby Feels Safe at Home: Yes Assistive Devices: None Review of Systems Review of Systems: All systems reviewed & are unremarkable except as noted in HPI & below Physical Exam Physical Exam: General: no distress, WDWN, pleasant elderly male Head: normocephalic, atraumatic Eyes: onjunctiva non-injected, anicteric ENT: hard of hearing, normal inspection external ears, nose, mucous membranes moist Neck: supple, trachea midline Lungs: no respiratory distress, +rhonchi right lung, otherwise no wheezing/rales noted CV: RRR, no JVD. +defibrillator left upper chest wall without erythema Abd: normal BS, soft, non-tender Ext: no cyanosis, +Left greater than right leg swelling Neuro: A&O x 3, no focal deficits noted, normal affect Skin: warm, dry Results & Data Results & Data Vital Signs (Past 12 Hours) Vital Signs Temp Pulse Resp BP Pulse Ox O2 Del Method O2 Flow Rate 12/05/23 17:30 58 L 19 99 12/05/23 17:30 118/76 12/05/23 17:24 60 15 97 12/05/23 17:03 61 12 96 12/05/23 17:00 108/58 L 12/05/23 17:00 108/58 L 12/05/23 17:00 108/58 L 12/05/23 17:00 108/58 L 12/05/23 16:45 103/69 12/05/23 16:45 103/69 12/05/23 16:39 63 21 99 12/05/23 16:30 64 17 98 12/05/23 16:30 101/58 L 12/05/23 16:30 101/58 L 12/05/23 16:22 111/62 12/05/23 16:22 111/62 12/05/23 16:22 111/62 12/05/23 16:21 54 L 22 12/05/23 16:20 62 12/05/23 16:19 Room Air 0 12/05/23 16:18 66 15 96 12/05/23 15:55 36.8 C 74 16 111/63 96 Room Air Laboratory Results Short CBC 12/05/23 Range/Units 16:25 WBC 5.09 (4.8-10.8) K/ul Hgb 12.0 L (14.0-18.0) g/dl Hct 37.4 L (42.0-52.0) % Plt Count 310 (130-400) K/uL BMP 12/05/23 16:25 Sodium 136 Potassium 4.3 Chloride 104 Carbon Dioxide 29 BUN 18 Creatinine 1.19 Glucose 84 Calcium 7.7 L Liver Function 12/05/23 Range/Units 16:25 Total Bilirubin 0.3 (0.2-1.0) mg/dl AST 29 (13-39) U/L ALT 18 (7-52) U/L Alkaline Phosphatase 99 (34-104) U/L Albumin 2.1 L (3.4-5.0) gm/dl Diagnostic Findings Chest X-Ray 12/05/23 16:16 SINGLE VIEW CHEST CLINICAL HISTORY: Atypical chest pain FINDINGS: An AP, portable, upright chest radiograph is compared to study dated 06/22/2021 and correlated with chest CT dated 11/28/2023. A 2-lead cardiac AICD is unchanged in position. The heart is enlarged noting atherosclerotic calcificatio n of the thoracic aorta. There is pulmonary vascular congestion. Emphysema and chronic interstitial thickening is similar to previous. There are developing airspace opacities in the right upper lobe. No large pleural effusion is identified. Scarring/atelectasis is noted at the lung bases. No pneumothorax is seen. The skeletal structures are osteopenic. Postsurgical changes partially visualized in the left proximal humerus. IMPRESSION: 1. Cardiomegaly and AICD with pulmonary vascular congestion. 2. Emphysema. 3. There are developing airspace opacities in the right upper lobe. This could represent a mild pneumonitis or possibly pulmonary infarct given the recent pulmonary embolus. Correlate clinically. Radiographic follow-up to resolution is recommended. ACT 112: Negative or not required by law. Electronically signed by: Rafael Warner M.D. 12/05/2023 4:49 PM ECG Additional Comments: paced rhythm, PVCs per my interpretation Supervising Physician Co-Signing Physician Notes Attending Addendum: Case reviewed with the advanced practitioner. I have personally performed a history and physical examination on the patient. I have reviewed the advanced practitioner's documentation on the date of service referenced in note, and I agree with, and take responsibility for the plan of care. please refer to her notes for full details patient seen and examined, records reviewed by myself as well on exam, patient Seen resting in bed, volume, not in distress No recurrence of hematochezia while at the ER No abdominal pain, shortness of breath, chest pain no other symptoms VS noted and reviewed oriented x 3, not in distress, speaks in sentences with no effort nor accessory muscle use normal rate, regular rhythm, no murmurs clear breath sounds bilaterally non distended, soft, nontender no bipedal edema, erythema, warmth no neuro deficits all labs, imaging noted and reviewed ASSESSMENT AND PLAN Episodes of hematochezia Recent submassive acute pulmonary embolism, DVTs Hemoglobin on admission 12.0, was 12.73 days ago upon discharge Patient has stopped Coumadin at home, INR 1.5 Started on heparin drip at the ER, Coumadin on hold GI service consulted other diagnoses and plan of care as per advanced practitioner's notes Bert Mahan MD (3) Pulmonary embolism Acute cor pulmonale presence: without acute cor pulmonale Chronicity: acute Pulmonary embolism type: unspecified Qualified Code(s): I26.99 - Other pulmonary embolism without acute cor pulmonale (4) DVT (deep venous thrombosis) Affected thrombotic vein of extremity: unspecified vein of extremity Chronicity: acute DVT location: lower extremity Laterality: bilateral Qualified Code(s): I82.403 - Acute embolism and thrombosis of unspecified deep veins of lower extremity, bilateral
[2023-12-05] MEDS: HEPARIN SODIUM/DEXTROSE 25,000 UNITS/500 ML BAG IV SCH (18:09)
--- NOTE | 2023-12-05 18:35 | Electrocardiogram Report ---
Test Reason : Blood Pressure : / mmHG Vent. Rate : 068 BPM Atrial Rate : 060 BPM P-R Int : 000 ms QRS Dur : 122 ms QT Int : 396 ms P-R-T Axes : 000 237 103 degrees QTc Int : 421 ms Atrial-paced rhythm with occasional supraventricular complexes and with frequent Premature ventricula r complexes Anterolateral infarct (cited on or before 23-MAR-2020) Abnormal ECG When compared with ECG of 28-NOV-2023 15:59, Premature ventricular complexes are now Present Right bundle branch block is no longer Present Criteria for Inferior infarct are no longer Present Confirmed by Herbert Galvan ([id number]) on 12/05/2023 6:35:08 PM Referred By: Confirmed By:Kendrick Galvan
[2023-12-05] MEDS ORDERED: SODIUM CHLORIDE 0.9% 250 ML IV PRN (18:51)
[2023-12-05 20:11] LABS: ANTI-Xa, UFH(UnfractionatedHep 0.21 IU/ml (0.3-0.7)
[2023-12-05] MEDS: Heparin IV Adult Wt-Based Standard *NO* INITIAL Bolus Protocol IV STA (20:34)
[2023-12-05] MEDS ORDERED: GLUCOSE 40% GEL 15 GM TUBE PO PRN (20:41)
[2023-12-05] MEDS ORDERED: CARBOHYDRATES FOR HYPOGLYCEMIA PO PRN (20:41)
[2023-12-05] MEDS ORDERED: ALBUTEROL HFA 8 GM INHALER INH PRN (20:41)
[2023-12-05] MEDS ORDERED: ONDANSETRON INJ 2 MG/ML 2 ML VIAL IV PRN (20:41)
[2023-12-05] MEDS ORDERED: GLUCOSE 10 TAB/TUBE PO PRN (20:41)
[2023-12-05] MEDS ORDERED: GLUCAGON FOR INJ 1 MG VIAL SQ PRN (20:41)
[2023-12-05] MEDS ORDERED: ACETAMINOPHEN 325 MG TAB PO PRN (20:41)
[2023-12-05] MEDS ORDERED: DEXTROSE 50% 50 ML SYRINGE IV PRN (20:41)
[2023-12-05] MEDS: INSULIN ASPART PER UNIT CHARGE SC SCH (21:21)
[2023-12-05] MEDS: PANTOprazole 40 MG TAB PO SCH (21:24)
[2023-12-06 03:59] LABS: ANTI-Xa, UFH(UnfractionatedHep 0.68 IU/ml (0.3-0.7)
[2023-12-06] MEDS: LEVOTHYROXINE SODIUM 112 MCG TABLET PO SCH (05:40)
[2023-12-06] MEDS: ATORVASTATIN 40 MG TAB PO SCH (08:09)
[2023-12-06] MEDS: ISOSORBIDE MONO EXTENDED REL 30 MG TABCR PO SCH (08:09)
[2023-12-06] MEDS: CYANOCOBALAMIN (B-12) 500 MCG TABLET PO SCH (08:09)
[2023-12-06] MEDS: METOPROLOL SUCC 50MG EXT REL TAB PO SCH (08:09)
[2023-12-06 08:39] LABS: Hematocrit (blood only) 37.1 % (42.0-52.0); Hemoglobin 12.4 g/dl (14.0-18.0); Mean Corpuscular Hemoglobin 31.9 pg (25.0-34.0); Mean Corpuscular Hgb Conc 33.4 g/dL (32.0-36.0); Mean Corpuscular Volume 95.4 fL (80.0-100.0); Mean Platelet Volume 10.4 fL (9.4-12.4); Platelet Count 273 K/uL (130-400); RDW Coefficient of Variation 14.9 % (11.5-14.5); RDW Standard Deviation 51.8 fL (36.4-46.3); Red Blood Count 3.89 M/uL (4.70-6.10); White Blood Count 4.53 K/ul (4.8-10.8)
[2023-12-06 08:59] LABS: Estimated Average Glucose 123 mg/dl; Hemoglobin A1C 5.9 % (4.5-5.6)
[2023-12-06 09:00] LABS: BUN Creatinine Ratio 13.8 (10-20); Calcium 7.3 mg/dl (8.6-10.3); Creatinine Clr Calc Pharmacy 62.6 ml/min; Est GFR (African American) 87.2 ml/min; Est GFR (Non-African American) 75.2 ml/min
[2023-12-06] MEDS ORDERED: NON-FORMULARY MEDICATION (Ferrous Sulfate 27 mg iron Tablet) PO SCH (09:00)
--- NOTE | 2023-12-06 14:10 | Hospitalist Progress Note ---
Date of Service December 06, 2023 Assessment & Plan (1) GI bleed: Plan 83 year old male with PMH of HTN, HLD, ischemic cardiomyopathy, [place], chronic HFrEF, s/p defibrillator, NSVT, LV mural thrombus, GI bleed on Coumadin, duodenitis, DM II, hypothyroidism, GERD, current DVT and PE anticoagulated on Coumadin and others listed below presented to ER for rectal bleeding noted 1 day ago [employer]. No rectal bleeding reported on the day of arrival. He is being managed for the following: GI bleed: Presented with complaint of blood in stool [see above] Admitting hemoglobin of 12, PT/INR of 1.5. Baseline hemoglobin around 12. Per patient, no further blood or black in the stool. Coumadin and aspirin on hold, patient on heparin drip Hemoglobin stable around 12.4 today Continue home PPI. Follow labs closely to monitor H&H. GI consult, await recommendation. Blood transfusion for symptomatic anemia or Hemoglobin level less than 8. n.p.o. until GI evaluation. Subtherapeutic anticoagulation: Pulmonary embolism: DVT (deep venous thrombosis): Ventricular mural thrombus: Recent hospitalization 11/28/2023-12/02/2023 for ventricular mural thrombus, extensive left leg DVT, submassive PE and is anticoagulated on Coumadin. No hypoxia. Denies CP, SOB or cough. INR: 1.5 at presentation. Hold Coumadin with rectal bleeding On Heparin IV, monitor closely Ischemic cardiomyopathy: ICD (implantable cardioverter-defibrillator) in place: Chronic HFrEF (heart failure with reduced ejection fraction): 11/29/2023 echo: EF: 25-30%, large left ventricular apical thrombus, extensive area of myocardial thinning and akinesis anterior, anterior septal, inferior septal, inferior and apical monterroso, grade 1 diastolic dysfunction, no pericardial effusion Device was interrogated by ER at admission and reported no abnormal rhythms. Holding aspirin with rectal bleeding Continue metoprolol succinate, isosorbide, atorvastatin History of supraventricular tachycardia: History NSVT. Continue metoprolol succinate Diabetes mellitus, type 2: A1c: 5.7 on 08/16/23. Hold home metformin. A1c 5.9 this admission. Continue with sliding scale. Hyperlipidemia: Continue home atorvastatin Hypothyroidism: Continue home levothyroxine Vitamin deficiency: Continue vitamin D DVT prophylaxis: Patient on heparin drip for recent DVT/PE history Full code Admission and Anticipated Discharge Date Admission Date: December 05, 2023 Subjective Patient was seen and examined at bedside. Patient was lying in bed, on room air, NAD, resting comfortably. Patient reports having blood in the stool a day before arrival. He reports having 3 brownish bowel movement yesterday with no blood or black. He reports no bowel movement today. He denies any febrile illness or headache or dizziness or chest pain or lightheadedness or abdominal pain. Patient understands the risks of continuing anticoagulation including increased risks of bleeding leading up to but also he has blood clots recently, he would like to continue with anticoagulation for now. Physical Exam Physical Exam: General: no distress, WDWN, pleasant elderly male Head: normocephalic, atraumatic Eyes: onjunctiva non-injected, anicteric ENT: hard of hearing, normal inspection external ears, nose, mucous membranes moist Neck: supple, trachea midline Lungs: no respiratory distress, CTA, no wheezing/rales noted CV: RRR, no JVD. +defibrillator left upper chest wall without erythema Abd: normal BS, soft, non-tender Ext: no cyanosis, +Left greater than right leg swelling Neuro: A&O x 3, no focal deficits noted, normal affect Skin: warm, dry Results & Data Results & Data Vital Signs (Past 12 Hours) Vital Signs Temp Pulse Resp BP BP Pulse Ox O2 Del Method 12/06/23 11:36 36.3 C L 58 L 19 95/59 L 96 Room Air 12/06/23 10:00 Room Air 12/06/23 08:08 107/59 L 12/06/23 07:13 36.4 C L 55 L 19 97/58 L 96 Room Air 12/06/23 03:45 36.4 C L 60 18 108/62 95 Room Air
--- OUTSIDE RECORDS SUMMARY | 2023-12-06 15:45 | External Medical Summary | Summary of Care ---
Author Name Unknown Organization [facility] Address [address] [facility] [place] [address] Phone [phone] Care Team Providers Care Well Point Pumping Supervisor Name Role Phone Kaitlin Barry MD Primary Care Prov ider Reason for Visit * Reason Comments Acute rectal bleeding this morning, on blood thinner, just discharged from [facility] with clots Encounter Details Date Type Department Care Team (Late st Contact Info) Description 12/04/2023 10:20 AM EDT Office Visit [facility] [address] [place] [phone] Rachel Johnson CRNP [address] [place] [address] Rectal bleeding*; LV (left ventricular) mural thrombus; Acute deep vein thrombosis (DVT) of left lower extremity, unspecified vein (HCC) Allergies Active Allergy Reactions Criticality Noted Date Comments No Known Drug Allergy 02/09/2003 documented as of this encounter (statuses as of 12/04/2023) Medications Medication Sig Dispensed Refills Start Date End Date Status Cyanocobalamin (B-12) 1000 MCG CapsuleIndications:B 12 deficiency Take 1 Cap by mouth daily. 30 Cap 5 01/14/2016 Active Blood Glucose Monitoring Suppl (ViewsIQ ULTRA SYSTEM) W/DEVICE KITIndications:Type 2 diabetes mellitus with hemoglobin A1c goal of less than 7.0% ([facility]) Test once a day DX:E11.9 1 Kit 04/12/2016 Active nitroglycerin (NITROSTAT) 0.4 MG SUBLIndications:Sdv Pilot/Navigator/Dds Operator delores ischemic heart disease one tab [...] mellitus with stage 3 chronic kidney disease ([facility]) TAKE 1 TABLET BY MOUTH IN THE MORNING 90 Tablet 3 07/11/2023 Active metFORMIN HCl 1000 MG Oral TabletIndications:Di abetes mellitus with stage 3 chronic kidney disease ([facility]) Take 1 tablet by mouth twice daily 180 Tablet 1 08/10/2023 Active Metoprolol Succinate ER 100 MG Oral Tablet Extended Release 24 Hour (toPROL XL)Indications:Ische carlos enrique cardiomyopathy,Susta ined VT (ventricular tachycardia) ([facility]),Dyslipidemia, [...] Oral Tablet (Lasix)Indications:C hronic systolic heart failure ([facility]),STEVENSON (acute kidney injury) ([facility]) As needed 10/23/2023 Acti ve Clobetasol Propionate 0.05 % External Ointment (Temovate)Indication s:Dermatitis Apply topically to affected area 2 times a day. To affected area on SCALP for up to two weeks. Use pea sized amount. 30 g 2 11/06/2023 Active Warfarin Sodium 1 MG Oral Tablet (Coumadin) Take by mouth every evening. Active Calcium Carb-Cholecalciferol 200-10 MG-MCG Oral Capsule Take by mouth. Active documented as of this encounter (statuses as of 12/04/2023) Active Problems Problem Noted Date Diagnosed Date Acute deep vein thrombosis ( DVT) of left lower extremity, unspecified vein 12/03/2023 Pulmonary embolus, right 11/28/2023 Overview: [facility] right hilar Type 2 diabetes mellitus wit h stage 2 chronic kidney disease, without long-term current use of insulin 11/06/2023 NSVT (nonsustained ventricular tachycardia) 10/26 Chronic obstructive pulmonary disease 10/28/2021 Overview: [place] dust expossure. Former smoker. Had PFTs 2014. [...] BPH without obstruction/lower urinary tract symp toms Chronic HFrEF (heart failure with reduced ejection fraction) documented as of this encounter (statuses as of 12/04/2023) Resolved Problems Problem Noted Date Diagnosed Date [...] as of this encounter (statuses as of 12/04/2023) Immunizations Name Administration Dates Next Due COVID-19 mRNA, LNP-s, No Pre serve, 2-Dose Series ([employer]) 09/06/2020,08/16/2020 COVID-19, LNP-s, No Preserve , Alexander-sucrose, Ages 12+ ([employer]) 07/05/2021 COVID-19, MRNA-LNP, 23-24, P F, 30 MCG/0.3 mL, 12 YRS AND ABOVE, IM ([facility]) 04/17/2023 Influenza, Whole Virus 05/10/2000 Pneumococcal Conjugate [...] Sign Reading Time Taken Comments Blood Pressure 98/70 12/04/2023 10:21 AM EDT Pulse 67 12/04/2023 10:21 AM EDT Temperature 36.6 C (97.8 F) 12/04/2023 10:21 AM E DT Respiratory Rate - - Oxygen Saturation 95% 12/04/2023 10:21 AM EDT Inhaled Oxygen Concentration - - Weight 77.3 kg (170 lb 6.4 oz) 12/04/2023 10:21 AM EDT Height - - Body Mass Index 24.45 11/06/2023 8:24 AM EDT documented in this encounter Progress Notes * Rachel Johnson CRNP - 12/04/2023 12:53 PM EDT Images from the original note were not included. History of Present Illness Juan Tavera is a 83 year old male that presents for Acute (rectal bleeding this morning, on blood thinner, just discharged from [facility] with clots) HPI Here for rectal bleeding. Dark red blood mixed into stool this morning with some blood in the toilet as well. No visible clots. He denies dizziness, weakness. "Always lightheaded" but no worse. No new/worsening dyspnea. He was discharged from [facility] with bilateral LE DVT and large LV mural thrombus. He was put on coumadin for this. In 2019 had severe GI bleed while on coumadin for LV thrombus as well. Per patient report multiple inpatient upper and lower endoscopies has not found a source of bleeding. Current Outpatient Medications Medication Sig Dispense Refill Calcium Carb-Cholecalciferol 200-10 MG-MCG Oral Capsule Take by mouth. Warfarin Sodium 1 MG Oral Tablet (Coumadin) Take by mouth every evening. Clobetasol Propionate 0.05 % External Ointment (Temovate) [...] MOUTH IN THE MORNING 90 Tablet 1 OneTouch Ultra In Vitro Strip USE 1 STRIP TO CHECK GLUCOSE TWICE DAILY FASTING AND EVENING 200 Strip 1 Pantoprazole Sodium 40 MG Oral Tablet [...] mouth in the morning. 30 Tablet 0 ColizerTouch UltraSoft Lancets USE 1 TO CHECK GLUCOSE UP TO 4 TIMES DAILY DIRECTED E11.9 400 Each 3 Iron 28 MG Oral Tablet Take 1 Tablet by mouth in the morning. nitroglycerin (NITROSTAT) 0.4 MG SUBL one tab under tongue as needed for chest pain maximum 3 doses25 Tab 5 Blood Glucose Monitoring Suppl (ViewsIQ ULTRA SYSTEM) W/DEVICE KIT Test once a day DX:E11.9 1 Kit 0 Cyanocobalamin (B-12) 1000 MCG Capsule Take 1 Cap by mouth daily. 30 Cap 5 Ketoconazole 2 % External Shampoo Apply topically to affected area every 3 days. Shampoo twice a week for 4 weeks. (Patient not taking: Reported on 11/28/2023) 120 mL 1 Hydrocortisone 2.5 % External Cream Apply a small amount to rectal area twice daily for up to 14 days. (Patient not taking: Reported on 11/28/2023) 20 g 0 No current facility-administered medications for this visit. Physical Exam Vitals: 12/04/23 1021 Temp: 36.6 C (97.8 F) Pulse: 67 SpO2: 95% BP: 98/70 Physical Exam Vitals reviewed. Constitutional: General: He is not in acute distress. HENT: Head: Normocephalic and atraumatic. Nose: Nose normal. Mouth/Throat: Mouth: Mucous membranes are moist. Eyes: Extraocular Movements: Extraocular movements intact. Conjunctiva/sclera: Conjunctivae normal. Pupils: Pupils are equal, round, and reactive to light. Cardiovascular: Rate and Rhythm: Normal rate and regular rhythm. Heart sounds: Normal heart sounds. Pulmonary: Effort: Pulmonary effort is normal. Breath sounds: Normal breath sounds. Abdominal: General: There is no distension. Palpations: Abdomen is soft. Tenderness: There is no abdominal tenderness. Musculoskeletal: Right lower leg: Edema present. Left lower leg: Edema present. Skin: General: Skin is warm and dry. Capillary Refill: Capillary refill takes less than 2 seconds. Findings: No bruising or rash. Neurological: Mental Status: He is alert and oriented to person, place, and time. Psychiatric: Behavior: Behavior normal. Thought Content: Thought content normal. Assessment and Plan Rectal bleeding Stop coumadin - await PCP/cardiology recommendations for follow up from here ? Candidate for IVC filter - pt would want to discuss with PCP. Hesitant to have another procedure including endoscopy - CBC WITH WBC DIFFERENTIAL; Future - PT INR; Future LV (left ventricular) mural thrombus - CBC WITH WBC DIFFERENTIAL; Future - PT INR; Future Acute deep vein thrombosis (DVT) of left lower extremity, unspecified vein (HCC) - CBC WITH WBC DIFFERENTIAL; Future - PT INR; Future Wrap-Up Follow Up: Return if symptoms worsen or fail to improve. Time: I spent a total of 40-54 minutes (exact time 45 mins) on the date of service in preparation, delivery, and documentation of the care provided to Juan Tavera excluding any time spent in the performance of separately billed services. documented in this encounter Nursing Notes * Monik Kapoor LPN - 12/04/2023 10:18 AM EDT The patient has been properly identified by confirmation of name and date of . Chief Complaint Patient presents with Acute rectal bleeding this morning, on blood thinner, just discharged from [facility] with clots Pt states the rectal bleeding started this morning. Is a deep red in color. Notices it when he had a BM, not it is dripping in underpants. Pt is not in any pain. No Sx. Legs are a little un comfortable. Pt states this happened last time he was on Warfarin, but he had blood in his emesis as well then. Pt was in [place], d/c 2 days ago with multiple blood clots. documented in this encounter Plan of Treatment Upcoming Encounters Date Type Department Care Team (Late st Contact Info) Description 12/04/2023 2:40 PM EDT Anticoagulation Pharmacy, [address] [place] [address] [place] [address] 12/05/2023 1:40 PM EDT Office Visit Nephrology [address] [place] [address] [facility] [address] 05/20/2024 9:00 AM EST Office Visit Cardiology [address] [place] [address] Patrice Cheung PA-C [address] [place] [address] 09/10/2024 2:20 PM EDT Office Visit Family Medicine [address] [place] [phone] Kaitlin Barry MD [address] [place] [address] [place] [address] Health Maintenance Due Date Last Done Comments [...] Additional history exists CKD PHOS USE SMARTSET 85651 02/22/202401/27, 06/21/2021, 03/22/2020, Additional history exists Diabetic Foot Exam 02/22/2024 02/21/2023, 0 10/28/2021, 09/21/2020, Additional history exists GFR 06/05/2024 12/04/2023, 10/27, 11/06/2023, Additional history exists B-12 08/15/2024 08/16/2023, 02/0 12/2022, 06/21/2021, Additional history exists TSH 08/15/2024 08/16/2023, 01/27, 07/05/2022, Additional history exists CKD HGB USE SMARTSET 68652 12/03/202412/03, 12/04/2023, 11/20/2023, Additional history exists O2 ASSESSMENT COMPLETED IN PAST YEAR FOR COPD 12/03/2024 12/04/2023 DTaP,Tdap,and Td Vaccines (3 - Td or [...] this encounter Medical Devices Implanted Type Area Filtrose Crusher Device Identifier Shelf Expiration Date Model / Serial / Lot Dbx 10cc [id number] - [id number] - [id number] Implanted:Qt y: 1 on 07/14/2021 by Kristian Chappell DO at OR [facility] 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 FND [id number] 01/28/2023 [id number] / [id number] / [id number] Prox Lat Humerus Plate Implanted:Qt y: 1 on 07/14/2021 by Kristian Chappell DO at OR [facility] [place] [facility] Left: Shoulder MALLORY : ORTHOPAEDICS [id number] / / Screw Nlk A3 Ti 3.5x32mm - [id number] Implanted:Qt y: 3 on 07/14/2021 by Kristian Chappell DO at OR [facility] Left: Shoulder MALLORY : TRAUMA [id number] / / Screw Lk A3 Ti 4x40mm - [id number] Implanted:Qt y: 1 on 07/14/2021 by Kristian Chappell DO at OR [facility] Left: Shoulder MALLORY : TRAUMA [id number] / / Screw Lk A3 Ti 4x55mm - [id number] Implanted:Qt y: 1 on 07/14/2021 by Kristian Chappell DO at OR [facility] Left: Shoulder MALLORY : TRAUMA [id number] / / Screw Lk A3 Ti 4x30mm - [id number] Implanted:Qt y: 1 on 07/14/2021 by Kristian Chappell DO at OR [facility] Left: Shoulder MALLORY : TRAUMA [id number] / / 3.5x55 Locking Screw Implanted:Qt y: 1 on 07/14/2021 by Kristian Chappell DO at OR [facility] Left: Shoulder MALLORY : ORTHOPAEDICS [id number] / / documented as of this encounter Results * (ABNORMAL) PT INR (12/04/2023 11:45 AM EDT) Prothrombin Time 22.5(H) 11.6 - 15.2 seconds 12/04/2023 12:12 PM EDT [facility] INR 2.0(H) 0.8 - 1.2 12/04/2023 12:12 PM EDT [facility] Blood Venous blood specimen / Unknown Venipuncture / Unknown 12/04/2023 11:45 AM EDT 12/04/2023 11:45 AM EDT Narrative [facility] - 12/04/2023 12:12 PM EDT Warfarin Therapy INR: 2.0-3.0 conventional anticoagulation INR: 2.5-3.5 high intensity anticoagulation Rachelpaula Nolandarrinrodri [facility] LAB BLOOD ORDERABL ES [facility]10 [address] [place] [address] documented in this encounter Visit Diagnoses Diagnosis Rectal bleeding- Primary Hemorrhage of rectum and anus LV (left ventricular) mural thrombus Acute myocardial infarction, unspecified site, episode of care unspecified Acute deep vein thrombosis (DVT) of left lower extremity, unspecified vein (HCC) documented in this encounter Advance Directives * Full Code (Latest Code Status on File) Date Activated Date Inactivated Comments 07/14/2021 2:48 PM 07/15/2021 12:26 AM This order reflects the patients wishes and were consensually agreed upon. Question Answer Comments Discussion of Advance Directives occurred with: Not Discussed Care Teams Well Point Pumping Supervisor Relationship Specialty Start Date End Date Kaitlin Barry MD [address] [place] [address] [place] [address] PCP - General Family Medicine 04/22/19 documented as of this encounter
--- OUTSIDE RECORDS SUMMARY | 2023-12-06 15:45 | External Medical Summary ---
Author Name Unknown Address Unknown Organization K0G:[facility] - [address] [facility] [place] [address] Laboratory Report Ordering Provider Test Date Status WANDA SHAW 12/04/2023 11:45:24 Final Observation Date Value Abnormality Reference (Units ) Status RBC, Urine 12/04/2023 11:45:24 0-2 0-2 (/HPF) Final WBC, Urine 12/04/2023 11:45:24 0-2 0-2 (/HPF) Final Bacteria [#/area] in Urine sediment by Microscopy high power field 12/04/2023 11:45:24 0-25 0-25 (/HPF) Final Performing Location [facility] 0 - [address] [place] [address]
--- OUTSIDE RECORDS SUMMARY | 2023-12-06 15:45 | External Medical Summary | Summary of Care ---
Author Name Unknown Organization [facility] Address [address] [facility] [place] [address] Phone [phone] Care Team Providers Care Law Writer Name Role Phone Kaitlin Barry MD Primary Care Prov ider Reason for Visit * Reason Comments Acute rectal bleeding this morning, on blood thinner, just discharged from [facility] with clots Encounter Details Date Type Department Care Team (Late st Contact Info) Description 12/04/2023 10:20 AM EDT Office Visit [facility] [address] [place] [address] Rachel Johnson CRNP [address] [place] [address] Rectal bleeding*; LV (left ventricular) mural thrombus; [...] 5 01/14/2016 Active Blood Glucose Monitoring Suppl (Tarena ULTRA SYSTEM) W/DEVICE KITIndications:Type 2 diabetes mellitus with hemoglobin A1c goal of less than 7.0% ([facility]) Test once a day DX:E11.9 1 Kit 04/12/2016 Active nitroglycerin (NITROSTAT) 0.4 MG SUBLIndications:Stave Jointer [place]ores ischemic heart disease one tab under tongue as needed for chest pain maximum 3 doses 25 Tab 5 08/04/2019 Active Iron 28 MG Oral Tablet Take 1 Tablet by mouth in the morning. Active Aspirin 81 MG Oral Tablet ChewableIndications: Type 2 diabetes mellitus with hemoglobin A1c goal of less than 7.0% (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 30 Tablet 07/21/2022 Active OneTouch UltraSoft LancetsIndications:T ype 2 diabetes mellitus with hemoglobin A1c goal of less than 7.0% ([facility]) USE 1 TO CHECK GLUCOSE UP [...] mellitus with stage 3 chronic kidney disease ([facility]) TAKE 1 TABLET BY MOUTH IN THE MORNING 90 Tablet 3 07/11/2023 Active metFORMIN HCl 1000 MG Oral TabletIndications:Di abetes mellitus with stage 3 chronic kidney disease ([facility]) Take 1 tablet by mouth twice daily 180 Tablet 1 08/10/2023 Active Metoprolol Succinate ER 100 MG Oral Tablet Extended Release 24 Hour (toPROL XL)Indications:Ische carlos enrique cardiomyopathy,Susta ined VT (ventricular tachycardia) ([facility]),Dyslipidemia, goal LDL below 70,Essential (primary) hypertension,Chronic systolic heart failure ([facility]) TAKE 1 TABLET BY MOUTH IN THE MORNING 90 Tablet 1 08/10/2023 Active Pantoprazole Sodium 40 MG Oral Tablet Delayed Release TAKE 1 TABLET BY MOUTH ONCE DAILY IN THE MORNING AND 1 TABLET ONCE DAILY AT BEDTIME 180 Tablet 1 08/10/2023 Active OneTouch Ultra In Vitro StripIndications:Typ e 2 diabetes mellitus with hemoglobin A1c goal of less than 7.0% ([facility]) USE 1 STRIP TO CHECK GLUCOSE TWICE DAILY FASTING AND EVENING 200 Strip 1 08/10/2023 Active Furosemide 40 MG Oral Tablet (Lasix)Indications:C hronic systolic heart failure ([facility]),STEVENSON (acute kidney injury) ([facility]) As needed 10/23/2023 Acti ve Clobetasol Propionate [...] vein 12/03/2023 Pulmonary embolus, right 11/28/2023 Overview: [facility] right hilar Type 2 diabetes mellitus wit h stage 2 chronic kidney disease, without long-term current use of insulin 11/06/2023 NSVT (nonsustained ventricular tachycardia) 10/26 Chronic obstructive pulmonary disease 10/28/2021 Overview: [place] dust expossure. Former smoker. Had PFTs 2014. [...] mRNA, LNP-s, No Pre serve, 2-Dose Series ([employer]) 09/06/2020,08/16/2020 COVID-19, LNP-s, No Preserve , Alexander-sucrose, Ages 12+ ([employer]) 07/05/2021 COVID-19, MRNA-LNP, 23-24, P F, 30 MCG/0.3 mL, 12 YRS AND ABOVE, IM ([facility]) 04/17/2023 Influenza, Whole Virus 05/10/2000 Pneumococcal Conjugate [...] morning, on blood thinner, just discharged from [facility] with clots) HPI Here for rectal bleeding. Dark red blood mixed into stool this morning with some blood in the toilet as well. No visible clots. He denies dizziness, weakness. "Always lightheaded" but no worse. No new/worsening dyspnea. He was discharged from [facility] with bilateral LE DVT and large [...] mouth in the morning. 30 Tablet 0 The SocietyTouch UltraSoft Lancets USE 1 TO CHECK GLUCOSE UP TO 4 TIMES DAILY DIRECTED E11.9 400 Each 3 Iron 28 MG Oral Tablet Take 1 Tablet by mouth in the morning. nitroglycerin (NITROSTAT) 0.4 MG SUBL one tab under tongue as needed for chest pain maximum 3 doses25 Tab 5 Blood Glucose Monitoring Suppl (Tarena ULTRA SYSTEM) W/DEVICE KIT Test once a [...] and Plan Rectal bleeding Stop coumadin - check labs now which show no change in his CBC since discharge and INR 2. Given this and that he is otherwise feeling well will await PCP/cardiology recommendations for follow up fromhere ? Candidate for IVC filter - pt [...] morning, on blood thinner, just discharged from [facility] with clots Pt states the rectal [...] Description 12/04/2023 2:40 PM EDT Anticoagulation Pharmacy, [address] [place] [address] [place] [address] 12/05/2023 1:40 PM EDT Office Visit Nephrology [address] [place] [address] Ruthie Bravo MD [address] [place], [place] [address] [address] 05/20/2024 9:00 AM EST Office Visit Cardiology [address] [place] [address] Patrice Cheung PA-C [address] [place] [address] 09/10/2024 2:20 PM EDT Office Visit Family Medicine [address] [place] [phone] Kaitlin Barry MD [address] [place] [address] [place] [address] Health Maintenance Due Date Last Done Comments Depression Screening 12/31/2020 01/01/2020 COVID-19 Vaccine (2022- season) 2023 04/17/2023, 07/05/2021, 07/05/2021, Additional history exists Diabetic Eye Exam 01/11/2024 01/10/2023, , 06/02/2021, Additional history exists Influenza Vaccine (FLU shot) (#1) 2024 02/21/2023, 04/07/2022, 02/24/2021, Additional history exists HbA1c 02/16/2024 08/16/2023, 01/27, 10/28/2021, Additional history exists Albumin/Creatinine Ratio 02/22/2024 023, 10/28/2021, 01/19/2021, Additional history exists CKD PHOS USE SMARTSET 98748 02/22/202401/27, 06/21/2021, 03/22/2020, Additional history exists Diabetic Foot Exam 02/22/2024 02/21/2023, 0 10/28/2021, 09/21/2020, Additional history exists GFR 06/05/2024 12/04/2023, 10/27, 11/06/2023, Additional history exists B-12 08/15/2024 08/16/2023, 02/0 12/2022, 06/21/2021, Additional history exists TSH 08/15/2024 08/16/2023, 01/27, 07/05/2022, Additional history exists CKD HGB USE SMARTSET 66405 12/03/202412/03, 12/04/2023, 11/20/2023, Additional history exists O2 [...] this encounter Medical Devices Implanted Type Area Fryline Attendant Device Identifier Shelf Expiration Date Model / Serial / Lot Dbx [facility] [id number] - [id number] - [id number] Implanted:Qt y: 1 on 07/14/2021 by Kristian Chappell DO at OR [facility] 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 FND [id number] 01/28/2023 [id number] / [id number] / [id number] Prox Lat Humerus Plate Implanted:Qt y: 1 on 07/14/2021 by Kristian Chappell DO at OR [facility] Left: Shoulder MALLORY : ORTHOPAEDICS [id number] / / Screw Nlk A3 Ti 3.5x32mm - [id number] Implanted:Qt y: 3 on 07/14/2021 by Kristian Chappell DO at OR [facility] Left: Shoulder MALLORY : TRAUMA [id number] / / Screw Lk A3 Ti 4x40mm - [id number] Implanted:Qt y: 1 on 07/14/2021 by Kristian Chappell DO at OR [facility] Left: Shoulder MALLORY : TRAUMA [id number] / / Screw Lk A3 Ti 4x55mm - [id number] Implanted:Qt y: 1 on 07/14/2021 by Kristian Chappell DO at OR [facility] Left: Shoulder MALLORY : TRAUMA [id number] / / Screw Lk A3 Ti 4x30mm - [id number] Implanted:Qt y: 1 on 07/14/2021 by Kristian Chappell DO at OR [facility] Left: Shoulder MALLORY : TRAUMA [id number] / / 3.5x55 Locking Screw Implanted:Qt y: 1 on 07/14/2021 by Kristian Chappell DO at OR [facility] Left: Shoulder MALLORY : ORTHOPAEDICS [id number] / / documented as of this encounter [...] conventional anticoagulation INR: 2.5-3.5 high intensity anticoagulation Rachel DIGGS LAB BLOOD ORDERABL ES [facility] [place] [address] documented in this encounter Visit Diagnoses Diagnosis [...] Directives occurred with: Not Discussed Care Teams Law Writer Relationship Specialty Start Date End Date Kaitlin Barry MD [address] [place] [address] [place] [address] PCP - General Family Medicine 04/22/19 documented as of this encounter
--- OUTSIDE RECORDS SUMMARY | 2023-12-06 15:45 | External Medical Summary | Summary of Care ---
Author Name Unknown Organization [facility] Address [address] [facility] [place] [address] Phone [phone] Care Team Providers Care Field Assembly Supervisor Name Role Phone Kaitlin Barry MD Primary Care Prov ider Reason for Visit * Reason Comments Acute rectal bleeding this morning, on blood thinner, just discharged from [facility] with clots Encounter Details Date Type Department Care Team (Late st Contact Info) Description 12/04/2023 10:20 AM EDT Office Visit [facility] [address] [place] [address] Rachel Johnson CRNP [address] [place] [address] Rectal bleeding*; LV (left ventricular) mural thrombus; [...] 5 01/14/2016 Active Blood Glucose Monitoring Suppl (My Own Crown ULTRA SYSTEM) W/DEVICE KITIndications:Type 2 diabetes mellitus with hemoglobin A1c goal of less than 7.0% ([facility]) Test once a day DX:E11.9 1 Kit 04/12/2016 Active nitroglycerin (NITROSTAT) 0.4 MG SUBLIndications:Security Management Specialist delores ischemic heart disease one tab under tongue as needed for chest pain maximum 3 doses 25 Tab 5 08/04/2019 Active Iron 28 MG Oral Tablet Take 1 Tablet by mouth in the morning. 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 30 Tablet 07/21/2022 Active OneTouch UltraSoft LancetsIndications:T ype 2 diabetes mellitus with hemoglobin A1c goal of less than 7.0% ([facility]) USE 1 TO CHECK GLUCOSE UP TO [...] mellitus with stage 3 chronic kidney disease ([facility]) TAKE 1 TABLET BY MOUTH IN THE MORNING 90 Tablet 3 07/11/2023 Active metFORMIN HCl 1000 MG Oral TabletIndications:Di abetes mellitus with stage 3 chronic kidney disease ([facility]) Take 1 tablet by mouth twice daily 180 Tablet 1 08/10/2023 Active Metoprolol Succinate ER 100 MG Oral Tablet Extended Release 24 Hour (toPROL XL)Indications:Ische carlos enrique cardiomyopathy,Susta ined [place] (ventricular tachycardia) ([facility]),Dyslipidemia, goal LDL below 70,Essential (primary) hypertension,Chronic systolic heart failure ([facility]) TAKE 1 TABLET BY MOUTH IN THE MORNING 90 Tablet 1 08/10/2023 Active Pantoprazole Sodium 40 MG Oral Tablet Delayed Release TAKE 1 TABLET BY MOUTH ONCE DAILY IN THE MORNING AND 1 TABLET ONCE DAILY AT BEDTIME 180 Tablet 1 08/10/2023 Active OneTouch Ultra In Vitro StripIndications:Typ e 2 diabetes mellitus with hemoglobin A1c goal of less than 7.0% ([facility]) USE 1 STRIP TO CHECK GLUCOSE TWICE DAILY FASTING AND EVENING 200 Strip 1 08/10/2023 Active Furosemide 40 MG Oral Tablet (Lasix)Indications:C hronic systolic heart failure ([facility]),STEVENSON (acute kidney injury) ([facility]) As needed 10/23/2023 Acti ve Clobetasol Propionate [...] vein 12/03/2023 Pulmonary embolus, right 11/28/2023 Overview: [facility] right hilar Type 2 diabetes mellitus wit h stage 2 chronic kidney disease, without long-term current use of insulin 11/06/2023 NSVT (nonsustained ventricular tachycardia) 10/26 Chronic obstructive pulmonary disease 10/28/2021 Overview: [place] dust expossure. Former smoker. Had PFTs 2014. 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 Dark red blood mixed into stool this morning with some blood in the toilet as well. No visible clots. He denies dizziness, weakness. "Always lightheaded" but no worse. No new/worsening dyspnea. He was discharged from [facility] with bilateral LE DVT and large [...] mouth in the morning. 30 Tablet 0 AngleWareTouch UltraSoft Lancets USE 1 TO CHECK GLUCOSE UP TO 4 TIMES DAILY DIRECTED E11.9 400 Each 3 Iron 28 MG Oral Tablet Take 1 Tablet by mouth in the morning. nitroglycerin (NITROSTAT) 0.4 MG SUBL one tab under tongue as needed for chest pain maximum 3 doses25 Tab 5 Blood Glucose Monitoring Suppl (My Own Crown ULTRA SYSTEM) W/DEVICE KIT Test once a [...] morning, on blood thinner, just discharged from [facility] with clots Pt states the rectal [...] Description 12/04/2023 2:40 PM EDT Anticoagulation Pharmacy, [address] [place] [address] [place] [address] 12/05/2023 1:40 PM EDT Office Visit Nephrology [address] [place] [address] Ruthie Bravo MD [address] [place], [place] [address] [address] 05/20/2024 9:00 AM EST Office Visit Cardiology [address] [place] [address] Patrice Cheung PA-C [address] [place] [address] 09/10/2024 2:20 PM EDT Office Visit Family Medicine [address] [place] [phone] Kaitlin Barry MD [address] [place] [address] [place] [address] Health Maintenance Due Date Last Done Comments [...] Additional history exists CKD PHOS USE SMARTSET 98766 02/22/202401/27, 06/21/2021, 03/22/2020, Additional history exists Diabetic Foot Exam 02/22/2024 02/21/2023, 0 10/28/2021, 09/21/2020, Additional history exists GFR 06/05/2024 12/04/2023, 10/27, 11/06/2023, Additional history exists B-12 08/15/2024 08/16/2023, 02/0 12/2022, 06/21/2021, Additional history exists TSH 08/15/2024 08/16/2023, 01/27, 07/05/2022, Additional history exists CKD HGB USE SMARTSET 33703 12/03/202412/03, 12/04/2023, 11/20/2023, Additional history exists O2 [...] this encounter Medical Devices Implanted Type Area Records Officer Device Identifier Shelf Expiration Date Model / Serial / Lot Dbx [facility] [id number] - [id number] - [id number] Implanted:Qt y: 1 on 07/14/2021 by Kristian Chappell DO at OR [facility] 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 FND [id number] 01/28/2023 [id number] / [id number] / [id number] Prox Lat Humerus Plate Implanted:Qt y: 1 on 07/14/2021 by Kristian Chappell DO at OR [facility] Left: Shoulder MALLORY : ORTHOPAEDICS [id number] / / Screw Nlk A3 Ti 3.5x32mm - [id number] Implanted:Qt y: 3 on 07/14/2021 by Kristian Chappell DO at OR [facility] Left: Shoulder MALLORY : [employer] [id number] / / Screw Lk A3 Ti 4x40mm - [id number] Implanted:Qt y: 1 on 07/14/2021 by Kristian Chappell DO at OR [facility] Left: Shoulder MALLORY : TRAUMA [id number] / / Screw Lk A3 Ti 4x55mm - [id number] Implanted:Qt y: 1 on 07/14/2021 by Kristian Chappell DO at OR [facility] Left: Shoulder MALLORY : TRAUMA [id number] / / Screw Lk A3 Ti 4x30mm - [id number] Implanted:Qt y: 1 on 07/14/2021 by Kristian Chappell DO at OR [facility] Left: Shoulder MALLORY : TRAUMA [id number] / / 3.5x55 Locking Screw Implanted:Qt y: 1 on 07/14/2021 by Kristian Chappell DO at OR [facility] Left: Shoulder MALLORY : ORTHOPAEDICS [id number] / / documented as of this encounter [...] [facility] [facility] [place] [address] documented in this encounter Visit Diagnoses Diagnosis [...] Directives occurred with: Not Discussed Care Teams Field Assembly Supervisor Relationship Specialty Start Date End Date Kaitlin Barry MD [address] [place] [address] [place] [address] PCP - General Family Medicine 04/22/19 documented as of this encounter
--- OUTSIDE RECORDS SUMMARY | 2023-12-06 15:45 | External Medical Summary | Summary of Care ---
Author Name Unknown Organization [facility] [address] [facility] [address] Phone [phone] Care Team Providers Care Door Assembler Name Role Phone Kaitlin Barry MD Primary Care Prov ider Reason for Visit * Reason Onset Date Comments Advice 12/04/2023 Returning call t o discuss findings Encounter Details Date Type Department Care Team (Late st Contact Info) Description 12/04/2023 Telephone Family Practice [facility] [address] [place] [address] Rachel Johnson CRNP [address] [place] [address] Advice (Returning call to discuss findings) Allergies Active Allergy Reactions Criticality Noted Date Comments No Known Drug Allergy 02/09/2003 documented as of this encounter (statuses as of 12/05/2023) Medications Medication Sig Dispensed Refills Start Date End Date Status Cyanocobalamin (B-12) 1000 MCG CapsuleIndications:B 12 deficiency Take 1 Cap by mouth daily. 30 Cap 5 01/14/2016 Active Blood Glucose Monitoring Suppl ([employer] ULTRA SYSTEM) W/DEVICE KITIndications:Type 2 diabetes mellitus with hemoglobin A1c goal of less than 7.0% ([facility]) Test once a day DX:E11.9 1 Kit 04/12/2016 Active nitroglycerin (NITROSTAT) 0.4 MG SUBLIndications:Director Of Cloud Services delores ischemic heart disease one tab under [...] kidney disease ([facility]) Take 1 tablet by mouth twice daily [...] [facility]) As needed 10/23/2023 Acti ve Clobetasol Propionate [...] as of this encounter (statuses as of 12/05/2023) Active Problems Problem Noted Date Diagnosed Date Acute deep vein thrombosis ( DVT) of left lower extremity, unspecified vein 12/03/2023 Pulmonary embolus, right 11/28/2023 Overview: [facility] right hilar Type 2 diabetes mellitus wit h stage 2 chronic kidney disease, without long-term current use of insulin 11/06/2023 NSVT (nonsustained ventricular tachycardia) 10/26 Chronic obstructive pulmonary disease 10/28/2021 Overview: [place] dust expossure. Former smoker. Had PFTs 2014. [...] as of this encounter (statuses as of 12/05/2023) Resolved Problems Problem Noted Date Diagnosed Date [...] as of this encounter (statuses as of 12/05/2023) Immunizations Name Administration Dates Next Due COVID-19 mRNA, LNP-s, No Pre serve, 2-Dose Series ([employer]) 09/06/2020,08/16/2020 COVID-19, LNP-s, No Preserve , Alexander-sucrose, Ages 12+ ([employer]) 07/05/2021 COVID-19, MRNA-LNP, 23-24, P F, 30 MCG/0.3 mL, 12 YRS AND ABOVE, IM ([employer]) 04/17/2023 Influenza, Whole Virus 05/10/2000 Pneumococcal Conjugate [...] encounter Miscellaneous Notes * Telephone Encounter - Raisa Garza OSA - 12/05/2023 9:35 AM EDT Reason for patient's call: returning call Caller was transferred to [facility] in gastroenterolgy * Telephone Encounter - Ja Dinero CRNP - 12/05/2023 9:28 AM EDT I called Mr. Tavera and left a message that he really needs a colonoscopy, that he may have colon cancer which causes blood clots, that we really need to get him back on anticoagulation for the blood clots. I left [phone] for him to call back to schedule. I placed the orders (he needs EGD and colonoscopy). He'll need to be done at [facility] and the case is urgent, so if he calls back. Please talk with Nasrin Cruz in [place] to find a slot. * Telephone Encounter - Sanjay Ritter OSA - 12/04/2023 3:46 PM EDT Patient states he just missed call from office and would like a callback as soon as available. * Telephone Encounter - Kaitlin Barry MD - 12/04/2023 1:59 PM EDT Big picture, I think we need to know whether he has cancer and whether he will opt for treatment before we can determine best approach to everything else. Including IVC filter. Can we try to get him on my schedule within next 2-3 weeks please? * Telephone Encounter - Maty Alberts OSA - 12/04/2023 1:33 PM EDT Appt cx * Telephone Encounter - Rachel Johnson CRNP - 12/04/2023 1:17 PM EDT He is still hesitant about colonoscopy - I told him we'd reach out to him to see how he's feeling tomorrow but to go to ER if bleeding worsens in meantime. The only other thought I had was maybe an urgent vascular referral -- I imagine he's likely not a candidate for IVC filter but wanted to get thoughts from PCP, cardiology team. Scheduling can you please cancel his coumadin clinic visit today? * Telephone Encounter - Kaitlin Barry MD - 12/04/2023 12:39 PM EDT He has unexplained weight loss, diarrhea, hematochezia and new large DVTs, as well as mural thrombus. I suspect occult malignancy, likely colon cancer. Unfortunately, he declined Lovenox and colonoscopy in the hospital. Agree with holding coumadin until bleeding stops/ H/H stabilizes Rachel can you talk with him about urgent need for colonoscopy and see if he will agree? * Telephone Encounter - Rachel Johnson CRNP - 12/04/2023 10:59 AM EDT Patient presents in clinic now for acute visit for rectal bleeding which started this morning. Darkred mixed into stool this morning. He feels fine -- no dizziness or nausea/vomiting or weakness. He is newly on coumadin for large (recurrent) LV thrombus and bilateral DVT of lower legs. He was just discharged 2 days ago from [facility]. He experienced severe GI bleed 2019 after starting coumadin as well. Per patient report inpatient colonoscopies have not found source of bleeding. I am going to get stat labs now and have him stop coumadin. Also reaching out to cardiology and PCPfor further guidance about anticoagulation and follow up for this patient. He traveled pretty far for his visit at [facility] today so he is going to wait here until labs are resulted. documented in this encounter Plan of Treatment Upcoming Encounters Date Type Department Care Team (Late st Contact Info) Description 12/05/2023 1:40 PM EDT Office Visit Nephrology [address] [place] [address] Ruthie Bravo MD [address] [place] [address] 12/05/2023 5:10 PM EDT Anticoagulation Pharmacy, [address] [place] [address] [place] [address] 05/20/2024 9:00 AM EST Office Visit Cardiology [address] [place] [address] Patrice Cheung PA-C [address] [place] [address] 09/10/2024 2:20 PM EDT Office Visit Family Medicine [address] [place] [phone] Kaitlin Barry MD [address] [place] [address] [place] [address] Scheduled Orders Name Type Priority Associated Diagnoses Orde r Schedule EGD, FLEXIBLE, DIAGNOSTIC Procedures Routine Rectal bleeding Ordered: 12/05/2023 COLONOSCOPY, DIAGNOSTIC (RECTUM) Procedures Routine Rectal bleeding Ordered: 12/05/2023 Health Maintenance Due Date Last Done Comments Depression Screening 12/31/2020 01/01/2020 COVID-19 Vaccine ( season) 2023 04/17/2023, 07/05/2021, 07/05/2021, Additional history exists Diabetic Eye Exam 01/11/2024 01/10/2023, , 06/02/2021, Additional history exists Influenza Vaccine (FLU shot) (#1) 2024 02/21/2023, 04/07/2022, 02/24/2021, Additional history exists HbA1c 02/16/2024 08/16/2023, 01/27, 10/28/2021, Additional history exists Diabetic Foot Exam 02/22/2024 02/21/2023, 0 10/28/2021, 09/21/2020, Additional history exists GFR 06/05/2024 12/04/2023, 10/27, 11/06/2023, Additional history exists B-12 08/15/2024 08/16/2023, 020 12/2022, 06/21/2021, Additional history exists TSH 08/15/2024 08/16/2023, 01/27, 07/05/2022, Additional history exists Albumin/Creatinine Ratio 12/03/2024 024, 02/21/2023, 10/28/2021, Additional history exists CKD HGB USE SMARTSET 12930 12/03/202412/03, 12/04/2023, 11/20/2023, Additional history exists CKD PHOS USE SMARTSET 32284 12/03/2024 07/0 01/2024, 02/21/2023, 06/21/2021, Additional history exists O2 ASSESSMENT COMPLETED IN [...] this encounter Medical Devices Implanted Type Area Clinical Massage Therapist Device Identifier Shelf Expiration Date Model / Serial / Lot Dbx 10cc [id number] - [id number] - [id number] Implanted:Qt y: 1 on 07/14/2021 by Kristian Chappell DO at [place] [facility] 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 FND [id number] 01/28/2023 [id number] / [id number] / [id number] Prox Lat Humerus Plate Implanted:Qt y: 1 on 07/14/2021 by Kristian Chappell DO at [place] [facility] Left: Shoulder MALLORY : ORTHOPAEDICS [id number] / / Screw Nlk A3 Ti 3.5x32mm - [id number] Implanted:Qt y: 3 on 07/14/2021 by Kristian Chappell DO at [place] [facility] Left: Shoulder MALLORY : [employer] [id number] / / Screw Lk A3 Ti 4x40mm - [id number] Implanted:Qt y: 1 on 07/14/2021 by Kristian Chappell DO at [place] [facility] Left: Shoulder MALLORY : [employer]UMA [id number] / / Screw Lk A3 Ti 4x55mm - [id number] Implanted:Qt y: 1 on 07/14/2021 by Kristian Chappell DO at [place] [facility] Left: Shoulder MALLORY : [employer]UMA [id number] / / Screw Lk A3 Ti 4x30mm - [id number] Implanted:Qt y: 1 on 07/14/2021 by Kristian Chappell DO at [place] [facility] Left: Shoulder MALLORY : [employer] [id number] / / 3.5x55 Locking Screw Implanted:Qt y: 1 on 07/14/2021 by Kristian Chappell DO at [place] [facility] Left: Shoulder MALLORY : ORTHOPAEDICS [id number] / / documented as of this encounter Visit Diagnoses Diagnosis Rectal bleeding- Primary Hemorrhage of rectum and anus documented in this encounter Advance Directives * Full Code (Latest Code Status on File) Date Activated Date Inactivated Comments 07/14/2021 2:48 PM 07/15/2021 12:26 AM This order reflects the patients wishes and were consensually agreed upon. Question Answer Comments Discussion of Advance Directives occurred with: Not Discussed Care Teams Door Assembler Relationship Specialty Start Date End Date Kaitlin Barry MD [address] [place] [address] [place] [phone] PCP - General Family Medicine 04/22/19 documented as of this encounter
--- OUTSIDE RECORDS SUMMARY | 2023-12-06 15:45 | External Medical Summary ---
Author Name Unknown Address Unknown Organization K0G:[facility] [place] [address] Laboratory Report Ordering Provider Test Date Status WANDA SHAW 12/04/2023 11:45:24 Final Observation Date Value Abnormality Reference (Units ) Status Color of Urine by Auto 12/04/2023 11:45:24 Yellow Light Yellow, Yellow, Dark Yellow Final Clarity, Urine 12/04/2023 11:45:24 Clear Clear Final Glucose [Mass/volume] in Urine by Automated test strip 12/04/2023 11:45:24 Negative Negative (mg/dL) Final Bilirubin.total [Presence] in Urine by Automated test strip 12/04/2023 11:45:24 Small Abnormal Negative Final Ketones [Mass/volume] in Urine by Automated test strip 12/04/2023 11:45:24 Trace Abnormal Negative (mg/dL) Final Specific gravity, Urine 12/04/2023 11:45:24 1.020 1.003-1.030 Final Hemoglobin [Presence] in Urine by Automated test strip 12/04/2023 11:45:24 Negative Negative Final pH, Urine 12/04/2023 11:45:24 5.5 5.0-7.5 (Units) Final Protein [Mass/volume] in Urine by Automated test strip 12/04/2023 11:45:24 30 Abnormal Negative (mg/dL) Final Urobilinogen [Mass/volume] in Urine by Automated test strip 12/04/2023 11:45:24 0.2 0.2, 1.0 (mg/dL) Final Nitrite [Presence] in Urine by Automated test strip 12/04/2023 11:45:24 Negative Negative Final Leukocyte esterase [Presence] in Urine by Automated test strip 12/04/2023 11:45:24 Negative Negative Final Performing Location [facility] - [address] [place] [address]
--- OUTSIDE RECORDS SUMMARY | 2023-12-06 15:45 | External Medical Summary ---
Author Name Unknown Address Unknown Organization K01:[facility] [address] [place] [address] Laboratory Report Ordering Provider Test Date Status WANDA SHAW 12/04/2023 11:45:24 Final Observation Date Value Abnormality Reference (Units ) Status Phosphate 12/04/2023 11:45:24 2.4 Below low normal 2.5 -4.8 (mg/dL) Final Performing Location [facility] [address] [place] [address]
--- OUTSIDE RECORDS SUMMARY | 2023-12-06 15:45 | External Medical Summary | Summary of Care ---
Author Name Unknown Organization [facility] Address [address] [place] [address] Phone [phone] Care Team Providers Care Infantry Officer Name Role Phone Kaitlin Barry MD Primary Care Prov ider Reason for Visit * Reason Comments Outpatient Testing Encounter Details Date Type Department Care Team (Late st Contact Info) Description 12/04/2023 11:40 AM EDT Laboratory Laboratory, [facility] [address] [facility] [phone] [facility] [address] [place] [address] STEVENSON (acute kidney injury) ([facility]); Diarrhea, unspecified type; LV (left ventricular) mural thrombus; Pulmonary embolus, right ([facility]); Acute deep vein thrombosis (DVT) of left lower extremity, unspecified vein ([facility]); Anticoagulation management encounter; Rectal bleeding Allergies Active Allergy Reactions Criticality Noted Date Comments No Known Drug Allergy 02/09/2003 documented as of this encounter (statuses as of 12/04/2023) Medications Medication Sig Dispensed Refills Start Date End Date Status Cyanocobalamin (B-12) 1000 MCG CapsuleIndications:B 12 deficiency Take 1 Cap by mouth daily. 30 Cap 5 01/14/2016 Active Blood Glucose Monitoring Suppl (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 30 Tablet 07/21/2022 Active OneTouch UltraSoft LancetsIndications:T ype 2 diabetes mellitus with hemoglobin A1c goal of less than 7.0% ([facility]) USE 1 TO CHECK GLUCOSE UP [...] with stage 3 chronic kidney disease ([facility]) TAKE 1 TABLET BY MOUTH IN THE MORNING 90 Tablet 3 07/11/2023 Active metFORMIN HCl 1000 MG Oral TabletIndications:Di abetes mellitus with stage 3 chronic kidney disease ([facility]) Take 1 tablet by mouth twice daily 180 Tablet 1 08/10/2023 Active Metoprolol Succinate ER 100 MG Oral Tablet Extended Release 24 Hour (toPROL XL)Indications:Ische carlos enrique cardiomyopathy,Susta ined [place] (ventricular tachycardia) ([facility]),Dyslipidemia, goal LDL below 70,Essential (primary) hypertension,Chronic systolic heart failure ([facility]) TAKE 1 TABLET BY MOUTH IN THE MORNING 90 Tablet 1 08/10/2023 Active Pantoprazole Sodium 40 MG Oral Tablet Delayed Release TAKE 1 TABLET BY MOUTH ONCE DAILY IN THE MORNING AND 1 TABLET ONCE DAILY AT BEDTIME 180 Tablet 1 08/10/2023 Active OneTouch Ultra In Vitro StripIndications:Typ e 2 diabetes mellitus with hemoglobin A1c goal of less than 7.0% ([facility]) USE 1 STRIP TO CHECK GLUCOSE TWICE DAILY FASTING AND EVENING 200 Strip 1 08/10/2023 Active Furosemide 40 MG Oral Tablet (Lasix)Indications:C hronic systolic heart failure ([facility]),STEVENSON (acute kidney injury) ([facility]) As needed 10/23/2023 Acti ve Clobetasol [...] vein 12/03/2023 Pulmonary embolus, right 11/28/2023 Overview: [facility] right hilar Type 2 diabetes mellitus wit h stage 2 chronic kidney disease, without long-term current use of insulin 11/06/2023 NSVT (nonsustained ventricular tachycardia) 10/26 Chronic obstructive pulmonary disease 10/28/2021 Overview: [place] dust expossure. Former smoker. Had PFTs 2014. 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 [...] mRNA, LNP-s, No Pre serve, 2-Dose Series ([employer]) 09/06/2020,08/16/2020 COVID-19, LNP-s, No Preserve , Alexander-sucrose, Ages 12+ ([facility]) 07/05/2021 COVID-19, MRNA-LNP, 23-24, P F, 30 MCG/0.3 mL, 12 YRS AND ABOVE, IM ([employer]-Comirnaty) 04/17/2023 Pneumococcal Conjugate Vacc, 13 Valent (Prevnar) [...] Description 12/04/2023 2:40 PM EDT Anticoagulation Pharmacy, [address] [place] [address] [place] [address] 12/05/2023 1:40 PM EDT Office Visit Nephrology [address] [place] [address] Ruthie Bravo MD [address] [facility] [address] 05/20/2024 9:00 AM EST Office Visit Cardiology [address] [place] [address] Patrice Cheung PA-C [address] [place] [address] 09/10/2024 2:20 PM EDT Office Visit Family Medicine [address] [place] [phone] Kaitlin Barry MD [address] [place] [address] [place] [address] Pending Results Name Type Priority Associated Diagnoses Date /Time URINALYSIS, REFLEX TO MICROSCOPIC Lab Routine STEVENSON (acute kidney injury) ([facility]) 12/04/2023 11:45 AM EDT ALBUMIN / CREATININE RATIO, URINE Lab Routine STEVENSON (acute kidney injury) ([facility]) 12/04/2023 11:45 AM EDT HEPATITIS B SURFACE ANTIGEN Lab Routine STEVENSON (acute kidney injury) ([facility]) 12/04/2023 11:45 AM EDT CBC WITH WBC DIFFERENTIAL Lab STAT Pulmonary embolus, right (HCC) LV (left ventricular) mural thrombus Acute deep vein thrombosis (DVT) of left lower extremity, unspecified vein (HCC) Rectal bleeding 12/04/2023 11:45 AM EDT PT INR Lab STAT Pulmonary embolus, right (HCC) LV (left ventricular) mural thrombus Acute deep vein thrombosis (DVT) of left lower extremity, unspecified vein (HCC) Rectal bleeding 12/04/2023 11:45 AM EDT CBC Lab STAT Pulmonary embolus, right (HCC) LV (left ventricular) mural thrombus Acute deep vein thrombosis (DVT) of left lower extremity, unspecified vein (HCC) Rectal bleeding 12/04/2023 11:45 AM EDT DIFFERENTIAL, AUTOMATED Lab STAT Pulmonary embolus, right (HCC) LV (left ventricular) mural thrombus Acute deep vein thrombosis (DVT) of left lower extremity, unspecified vein (HCC) Rectal bleeding 12/04/2023 11:45 AM EDT PHOSPHORUS Lab Routine STEVENSON (acute kidney injury) ([facility]) 12/04/2023 11:45 AM EDT Health Maintenance Due Date Last [...] Additional history exists CKD PHOS USE SMARTSET 37417 02/22/202401/27, 06/21/2021, 03/22/2020, Additional history exists Diabetic Foot Exam 02/22/2024 02/21/2023, 0 10/28/2021, 09/21/2020, Additional history exists GFR 05/21/2024 11/20/2023, 0605/2023, 08/16/2023, Additional history exists B-12 08/15/2024 08/16/2023, 02/0 12/2022, 06/21/2021, Additional history exists TSH 08/15/2024 08/16/2023, 01/27, 07/05/2022, Additional history exists CKD HGB USE SMARTSET 39606 11/19/202411/194, 11/20/2023, 11/06/2023, Additional history exists O2 ASSESSMENT COMPLETED IN [...] this encounter Medical Devices Implanted Type Area Chronometer Assembler And Adjuster Device Identifier Shelf Expiration Date Model / Serial / Lot Dbx 10cc [id number] - [id number] - [id number] Implanted:Qt y: 1 on 07/14/2021 by Kristian Chappell DO at OR [facility] 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 FND [id number] 01/28/2023 [id number] / [id number] / [id number] Prox Lat Humerus Plate Implanted:Qt y: 1 on 07/14/2021 by Kristian Chappell DO at OR [facility] Left: Shoulder MALLORY : ORTHOPAEDICS [id number] / / Screw Nlk A3 Ti 3.5x32mm - [id number] Implanted:Qt y: 3 on 07/14/2021 by Kristian Chappell DO OR [facility] Left: Shoulder MALLORY : TRAUMA [id number] / / Screw Lk A3 Ti 4x40mm - [id number] Implanted:Qt y: 1 on 07/14/2021 by Kristian Chappell DO at OR [facility] Left: Shoulder MALLORY : TRAUMA [id number] / / Screw Lk A3 Ti 4x55mm - [id number] Implanted:Qt y: 1 on 07/14/2021 by Kristian Chappell DO at OR [facility] Left: Shoulder MALLORY : TRAUMA [id number] / / Screw Lk A3 Ti 4x30mm - [id number] Implanted:Qt y: 1 on 07/14/2021 by Kristian Chappell DO at [facility] Left: Shoulder MALLORY : TRAUMA [id number] / / 3.5x55 Locking Screw Implanted:Qt y: 1 on 07/14/2021 by Kristian Chappell DO at OR [facility] Left: Shoulder MALLORY : ORTHOPAEDICS [id number] / / documented as of this encounter Visit Diagnoses Diagnosis STEVENSON (acute kidney injury) (HCC) Acute kidney failure, unspecified Diarrhea, unspecified type LV (left ventricular) mural thrombus Acute myocardial infarction, unspecified site, episode of care unspecified Pulmonary embolus, right (HCC) Other pulmonary embolism and infarction Acute deep vein thrombosis (DVT) of left lower extremity, unspecified vein (HCC) Anticoagulation management encounter Encounter for therapeutic drug monitoring Rectal bleeding Hemorrhage of rectum and anus documented in this encounter Advance Directives * Full Code (Latest Code Status on File) Date Activated Date Inactivated Comments 07/14/2021 2:48 PM 07/15/2021 12:26 AM This order reflects the patients wishes and were consensually agreed upon. Question Answer Comments Discussion of Advance Directives occurred with: Not Discussed Care Teams Infantry Officer Relationship Specialty Start Date End Date Kaitlin Barry MD [address] [place] [address] [place] [address] PCP - General Family Medicine 04/22/19 documented as of this encounter
--- OUTSIDE RECORDS SUMMARY | 2023-12-06 15:45 | External Medical Summary | Summary of Care ---
Author Name Unknown Organization [facility] Address [address] [facility] [address] Phone [phone] Care Team Providers Care X Ray Equipment Tester Name Role Phone Kaitlin Barry MD Primary Care Prov ider Reason for Visit * Reason Onset Date Comments Advice 12/04/2023 Returning call t o discuss findings Encounter Details Date Type Department Care Team (Late st Contact Info) Description 12/04/2023 Telephone Family Practice [facility] [address] [place] [address] Rachel Johnson CRNP [address] [place] [address] Advice (Returning call to discuss findings) Allergies Active Allergy Reactions Criticality Noted Date Comments No Known Drug Allergy 02/09/2003 documented as of this encounter (statuses as of 12/05/2023) Medications Medication Sig Dispensed Refills Start Date End Date Status Cyanocobalamin (B-12) 1000 MCG CapsuleIndications:B 12 deficiency Take 1 Cap by mouth daily. 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 30 Tablet 07/21/2022 Active OneTouch UltraSoft LancetsIndications:T ype 2 diabetes mellitus with hemoglobin A1c goal of less than 7.0% ([facility]) USE 1 TO CHECK GLUCOSE [...] stage 3 chronic kidney disease ([facility]) Take 1 tablet by mouth twice daily 180 Tablet 1 08/10/2023 Active Metoprolol Succinate ER 100 MG Oral Tablet Extended Release 24 Hour (toPROL XL)Indications:Ische carlos enrique cardiomyopathy,Susta ined VT (ventricular tachycardia) ([facility]),Dyslipidemia, goal LDL below 70,Essential (primary) hypertension,Chronic systolic heart failure ([facility]) TAKE 1 TABLET BY MOUTH IN THE MORNING 90 Tablet 1 08/10/2023 Active Pantoprazole Sodium 40 MG Oral Tablet Delayed Release TAKE 1 TABLET BY MOUTH ONCE DAILY IN THE MORNING AND 1 TABLET ONCE DAILY AT BEDTIME 180 Tablet 08/10/2023 Active OneTouch Ultra In Vitro StripIndications:Typ e 2 diabetes mellitus with hemoglobin A1c goal of less than 7.0% ([facility]) USE 1 STRIP TO CHECK GLUCOSE TWICE DAILY FASTING AND EVENING 200 Strip 1 08/10/2023 Active Furosemide 40 MG Oral Tablet (Lasix)Indications:C hronic systolic heart failure ([facility]),STEVENSON (acute kidney injury) ([facility]) As needed 10/23/2023 Acti ve Clobetasol Propionate [...] vein 12/03/2023 Pulmonary embolus, right 11/28/2023 Overview: [facility] right hilar Type 2 diabetes mellitus wit h stage 2 chronic kidney disease, without long-term current use of insulin 11/06/2023 NSVT (nonsustained ventricular tachycardia) 10/26 Chronic obstructive pulmonary disease 10/28/2021 Overview: [place] dust expossure. Former smoker. Had PFTs 2014. [...] mRNA, LNP-s, No Pre serve, 2-Dose Series ([facility]) 09/06/2020,08/16/2020 COVID-19, LNP-s, No Preserve , Alexander-sucrose, Ages 12+ ([facility]) 07/05/2021 COVID-19, MRNA-LNP, 23-24, P F, 30 MCG/0.3 mL, 12 YRS AND ABOVE, IM ([employer]-Comirnaty) 04/17/2023 Influenza, Whole Virus 05/10/2000 Pneumococcal Conjugate [...] anticoagulation for the blood clots. I left [phone] for him to call back to schedule. I placed the orders (he needs EGD and colonoscopy). He'll need to be done at [facility] and the case is urgent, so if he calls back. Please talk with Nasrin Cruz in [place] to find a slot. * Telephone Encounter [...] was just discharged 2 days ago from [facility]. He experienced severe GI bleed 2019 after starting coumadin as well. Per patient report inpatient colonoscopies have not found source of bleeding. I am going to get stat labs now and have him stop coumadin. Also reaching out to cardiology and PCPfor further guidance about anticoagulation and follow up for this patient. He traveled pretty far for his visit at [facility] today so he is going to wait here until labs are resulted. documented in this encounter Plan of Treatment Upcoming Encounters Date Type Department Care Team (Late st Contact Info) Description 12/05/2023 1:40 PM EDT Office Visit Nephrology [address] [place] [address] Ruthie Bravo MD [address] [place] [address] 12/05/2023 5:10 PM EDT Anticoagulation Pharmacy, [address] [place] [address] [place] [address] 05/20/2024 9:00 AM EST Office Visit Cardiology [address] [place] [address] Patrice Cheung PA-C [address] [place] [address] 09/10/2024 2:20 PM EDT Office Visit Family Medicine [address] [place] [phone] Kaitlin Barry MD [address] [place] [address] [place] [address] Scheduled Orders Name Type Priority Associated Diagnoses [...] Additional history exists CKD HGB USE SMARTSET 29100 12/03/202412/03, 12/04/2023, 11/20/2023, Additional history exists CKD PHOS USE SMARTSET 25183 12/03/2024 07/0 01/2024, 02/21/2023, 06/21/2021, Additional history [...] encounter Medical Devices Implanted Type Area Gas Station Supervisor Device Identifier Shelf Expiration Date Model / Serial / Lot Dbx 10cc [id number] - [id number] - [id number] Implanted:Qt y: 1 on 07/14/2021 by Kristian Chappell DO at [place] [facility] 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 FND [id number] 01/28/2023 [id number] / [id number] / [id number] Prox Lat Humerus Plate Implanted:Qt y: 1 on 07/14/2021 by Kristian Chappell DO at [place] [facility] Left: Shoulder MALLORY : ORTHOPAEDICS [id number] / / Screw Nlk A3 Ti 3.5x32mm - [id number] Implanted:Qt y: 3 on 07/14/2021 by Kristian Chappell DO at [place] [facility] Left: Shoulder MALLORY : TRAUMA [id number] / / Screw Lk A3 Ti 4x40mm - [id number] Implanted:Qt y: 1 on 07/14/2021 by Kristian Chappell DO at [place] [facility] Left: Shoulder MALLORY : TRAUMA [id number] / / Screw Lk A3 Ti 4x55mm - [id number] Implanted:Qt y: 1 on 07/14/2021 by Kristian Chappell DO at [place] [facility] Left: Shoulder MALLORY : TRAUMA [id number] / / Screw Lk A3 Ti 4x30mm - [id number] Implanted:Qt y: 1 on 07/14/2021 by Kristian Chappell DO at [place] [facility] Left: Shoulder MALLORY : TRAUMA [id number] / / 3.5x55 Locking Screw Implanted:Qt y: 1 on 07/14/2021 by Kristian Chappell DO at [place] [facility] Left: Shoulder MALLORY : ORTHOPAEDICS [id number] / / documented as of this encounter [...] Directives occurred with: Not Discussed Care Teams X Ray Equipment Tester Relationship Specialty Start Date End Date Kaitlin Barry MD [address] [place] [address] [place] [phone] PCP - General Family Medicine 04/22/19 documented as of this encounter
--- OUTSIDE RECORDS SUMMARY | 2023-12-06 15:45 | External Medical Summary ---
Author Name Unknown Address Unknown Organization K0G[facility] [address] [place] [address] Laboratory Report Ordering Provider Test Date Status JELENA SAEED 12/04/2023 11:45:24 Final Observation Date Value Abnormality Reference (Units ) Status WBC, Total 12/04/2023 11:45:24 5.32 4.00-10.8 0 (K/uL) Final RBC 12/04/2023 11:45:24 3.86 4.50-5.25 (M/uL) Final Hemoglobin 12/04/2023 11:45:24 12.3 Below low normal 14 .0-16.8 (g/dL) Final HCT 12/04/2023 11:45:24 37.4 Below low normal 40. 0-48.4 (%) Final MCV 12/04/2023 11:45:24 96.9 82.0-99.5 (fL) Final MCH 12/04/2023 11:45:24 31.9 27.0-34.0 (pg) Final MCHC 12/04/2023 11:45:24 32.9 32.0-36.0 (g/dL) Final RDW 12/04/2023 11:45:24 15.0 11.5-15.5 (%) Final Platelets 12/04/2023 11:45:24 289 140-400 (K /uL) Final MPV 12/04/2023 11:45:24 9.7 6.6-11.1 ( fL) Final Performing Location LABORATORY [facility] [place] [address] [place] [address]
--- OUTSIDE RECORDS SUMMARY | 2023-12-06 15:45 | External Medical Summary ---
Author Name Unknown Address Unknown Organization K0G:[facility]ORY [place] [address] [place] [address] Laboratory Report Ordering Provider Test Date Status JELENA SAEED 12/04/2023 11:45:24 Final Observation Date Value Abnormality Reference (Units ) Status SYNC LEUKOCYTES IN BLOOD BY AUTOMATED COUNT 12/04/2023 11:45:24 5.32 4.00-10.80 (K/uL) Final Neutrophils/100 leukocytes in Blood by Manual count 12/04/2023 11:45:24 53.0 40.0-75.0 (%) Final Lymphocytes/100 leukocytes in Blood by Manual count 12/04/2023 11:45:24 30.0 18.0-42.0 (%) Final Monocytes/100 leukocytes in Blood by Manual count 12/04/2023 11:45:24 16.0 Above high normal 1.0-11.0 (%) Final Eosinophils/100 leukocytes in Blood by Manual count 12/04/2023 11:45:24 1.0 0.0-6.0 (%) Final Neutrophils [#/volume] in Blood by Manual count 12/04/2023 11:45:24 2.82 1.80-7.70 (K/uL) Final Lymphocytes [#/volume] in Blood by Manual count 12/04/2023 11:45:24 1.60 1.00-4.80 (K/uL) Final Monocytes [#/volume] in Blood by Manual count 12/04/2023 11:45:24 0.85 0.00-1.10 (K/uL) Final Eosinophils [#/volume] in Blood by Manual count 12/04/2023 11:45:24 0.05 0.00-0.70 (K/uL) Final Nucleated erythrocytes/100 leukocytes [Ratio] in Blood by Automated count 12/04/2023 11:45:24 Final Performing Location LAB[facility]ORY [place] [address] [place] [address]
--- OUTSIDE RECORDS SUMMARY | 2023-12-06 15:45 | External Medical Summary ---
Author Name Unknown Address Unknown Organization K01:LABORATORY [facility] - [address] [place] [address] Laboratory Report Ordering Provider Test Date Status WANDA SHAW 12/04/2023 11:45:24 Final Observation Date Value Abnormality Reference (Units ) Status Hep B surface Ag 12/04/2023 11:45:24 Negative Neg ative Final Performing Location LABORATORY [facility] - [address] [place] [address]
--- OUTSIDE RECORDS SUMMARY | 2023-12-06 15:45 | External Medical Summary ---
Author Name Unknown Address Unknown Organization K0G:LABORATORY [place] [place] [address] [place] [address] Laboratory Report Ordering Provider Test Date Status JELENA SAEED 12/04/2023 11:45:24 Final Warfarin Therapy
INR: 2 .0-3.0 conventional anticoagulation
INR: 2.5- 3.5 high intensity anticoagulation Observation Date Value Abnormality Reference (Units ) Status PT 12/04/2023 11:45:24 22.5 Above high normal 11 .6-15.2 (seconds) Final INR 12/04/2023 11:45:24 2.0 Above high normal 0. 8-1.2 Final Performing Location LABORATORY [facility] [place] [address] [place] [address]
--- OUTSIDE RECORDS SUMMARY | 2023-12-06 15:45 | External Medical Summary ---
Author Name Unknown Address Unknown Organization K01:LABORATORY [facility] - [address] [place] [address] Laboratory Report Ordering Provider Test Date Status WANDA SHAW 12/04/2023 11:45:24 Final Normal: <30 mg/g creatinine< br/>High: 30-300 mg/g creatinine
Very High: >300 mg/g creatinine
Nephrotic: >2200 mg/g creatinine Observation Date Value Abnormality Reference (Units ) Status Albumin, Urine 12/04/2023 11:45:24 <1.20 (mg/dL) Final Creatinine, Urine 12/04/2023 11:45:24 231 (mg/dL) Final Albumin/Creatinine [Mass Ratio] in Urine 12/04/2023 11:45:24 <5 <30 (mg/g Creat) Final Performing Location LABORATORY [facility] - [address] [place] [address]
--- OUTSIDE RECORDS SUMMARY | 2023-12-06 15:45 | External Medical Summary ---
Author Name Unknown Address Unknown Organization K0G:[facility]ORY [facility] [address] - [address] [place] [address] Laboratory Report Ordering Provider Test Date Status JACEY OLIVA 12/04/2023 11:45:24 Final Observation Date Value Abnormality Reference (Units ) Status BUN 12/04/2023 11:45:24 17 6-20 (mg/dL) Final Creatinine 12/04/2023 11:45:24 1.3 Above high normal 0.6-1.2 (mg/dL) Final Glomerular filtration rate/1.73 sq M.predicted [Volume Rate/Area] in Serum, Plasma or Blood by Creatinine-based formula (CKD-EPI) 12/04/2023 11:45:24 57 Below low normal >=60 (mL/min) Final eGFR is calculated based on the CKD-EPI 2020 equation Sodium 12/04/2023 11:45:24 137 135-146 (m mol/L) Final Potassium 12/04/2023 11:45:24 5.4 Above high normal 3. 5-5.1 (mmol/L) Final Cl 12/04/2023 11:45:24 105 98-107 (mm ol/L) Final CO2 12/04/2023 11:45:24 27 22-32 (mmo l/L) Final Anion gap 12/04/2023 11:45:24 5 Below low normal 7-1 5 (mmol/L) Final Glucose 12/04/2023 11:45:24 93 70-120 (mg /dL) Final Albumin 12/04/2023 11:45:24 2.1 Below low normal 3.8 -5.0 (g/dL) Final AST (Aspartate aminotransferase) 12/04/2023 11:45:24 27 10-50 (U/L) Fin al Alk Phos 12/04/2023 11:45:24 113 35-130 (U/ L) Final Bilirubin, Total 12/04/2023 11:45:24 0.3 <=1 .2 (mg/dL) Final Calcium 12/04/2023 11:45:24 8.0 Below low normal 8.4 -10.2 (mg/dL) Final Protein 12/04/2023 11:45:24 5.2 Below low normal 6.0 -8.3 (g/dL) Final ALT (Alanine aminotransferase) 12/04/2023 11:45:24 11 10-50 (U/L) Kevan gilliland Performing Location LABORATORY [place] [address] [facility] [address]
--- OUTSIDE RECORDS SUMMARY | 2023-12-06 15:46 | External Medical Summary | Summary of Care ---
Author Name Unknown Organization [facility] Address [address] [facility] [place] [address] Phone [phone] Care Team Providers Care Garnett Mechanic Name Role Phone Kaitlin Barry MD Primary Care Prov ider Encounter Details Date Type Department Care Team (Late st Contact Info) Description 11/29/2023 Result Scan Unspecified Department <No scans attached> Allergies Active Allergy Reactions Criticality Noted Date Comments No Known Drug Allergy 02/09/2003 documented as of this encounter (statuses as of 12/03/2023) Medications Medication Sig Dispensed Refills Start Date End Date Status Cyanocobalamin (B-12) 1000 MCG CapsuleIndications:B 12 deficiency Take 1 Cap by mouth daily. 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 30 Tablet 07/21/2022 Active OneTouch UltraSoft LancetsIndications:T ype 2 diabetes mellitus with hemoglobin A1c goal of less than 7.0% ([facility]) USE 1 TO CHECK GLUCOSE UP TO [...] A1c goal of less than 7.0% ([facility]) USE 1 STRIP TO CHECK GLUCOSE TWICE DAILY FASTING AND EVENING 200 Strip 08/10/2023 Active Furosemide 40 MG Oral Tablet (Lasix)Indications:C hronic systolic heart failure ([facility]),STEVENSON (acute kidney injury) ([facility]) As needed 10/23/2023 Acti ve Clobetasol Propionate 0.05 % External Ointment (Temovate)Indication s:Dermatitis Apply topically to affected area 2 times a day. To affected area on SCALP for up to two weeks. Use pea sized amount. 30 g 2 11/06/2023 Active documented as of this encounter (statuses as of 12/03/2023) Active Problems Problem Noted Date Diagnosed Date Type 2 diabetes mellitus wit h stage 2 chronic kidney disease, without long-term current use of insulin 11/06/2023 NSVT (nonsustained ventricular tachycardia) 10/26 Chronic obstructive pulmonary disease 10/28/2021 Overview: [place] dust expossure. Former smoker. Had PFTs 2014. [...] of inactive term GENERAL OSTEOARTHROSIS 05/01/2001 Old VT (myocardial infarction) BPH without obstruction/lower urinary tract symp toms documented as of this encounter (statuses as of 12/03/2023) Resolved Problems Problem Noted Date Diagnosed Date [...] as of this encounter (statuses as of 12/03/2023) Immunizations Name Administration Dates Next Due COVID-19 mRNA, LNP-s, No Pre serve, 2-Dose Series (NCR Tehchnosolutions) 09/06/2020,08/16/2020 COVID-19, LNP-s, No Preserve , Alexander-sucrose, [...] Care Team (Late st Contact Info) Description 12/03/2023 12:20 PM EDT Office Visit Family Medicine [address] [place] [phone] Franko Polanco MD [address] [place] [address] [place] [phone] 12/04/2023 1:00 PM EDT Cardiac Studies Cardiology [address] [place] [address] [place], Pacer [address] [place] [address] 12/05/2023 1:40 PM EDT Office Visit Nephrology [address] [place] [phone] Ruthie Bravo MD [address] [place], [place] [address] [address] 05/20/2024 9:00 AM EST Office Visit Cardiology [address] [place] [address] Patrice Cheung PA-C [address] [place] [address] Health Maintenance Due Date Last Done Comments [...] Additional history exists CKD PHOS USE SMARTSET 66601 02/22/202401/27, 06/21/2021, 03/22/2020, Additional history exists Diabetic Foot Exam 02/22/2024 02/21/2023, 0 10/28/2021, 09/21/2020, Additional history exists GFR 05/21/2024 11/20/2023, 10/26, 08/16/2023, Additional history exists B-12 08/15/2024 08/16/2023, 02/0 12/2022, 06/21/2021, Additional history exists TSH 08/15/2024 08/16/2023, 01/27, 07/05/2022, Additional history exists O2 ASSESSMENT COMPLETED IN PAST YEAR FOR COPD 11/05/2024 11/06/2023 CKD HGB USE SMARTSET 82671 11/19/202411/19, 11/20/2023, 11/06/2023, Additional history exists DTaP,Tdap,and [...] this encounter Medical Devices Implanted Type Area Comptroller Device Identifier Shelf Expiration Date Model / Serial / Lot Dbx 10cc [id number] - [id number] - [id number] Implanted:Qt y: 1 on 07/14/2021 by Kristian Chappell DO at OR [facility] 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 FND [id number] 01/28/2023 [id number] / [id number] / [id number] Prox Lat Humerus Plate Implanted:Qt y: 1 on 07/14/2021 by Kristian Chappell DO OR [facility] Left: Shoulder MALLORY : ORTHOPAEDICS [id number] / / Screw Nlk A3 Ti 3.5x32mm - [id number] Implanted:Qt y: 3 on 07/14/2021 by Kristian Chappell DO OR [facility] Left: Shoulder MALLORY : TRAUMA [id number] / / Screw Lk A3 Ti 4x40mm - [id number] Implanted:Qt y: 1 on 07/14/2021 by Kristian Chappell DO at OR [facility] Left: Shoulder MALLORY : TRAUMA [id number] / / Screw Lk A3 Ti 4x55mm - [id number] Implanted:Qt y: 1 on 07/14/2021 by Kristian Chappell DO OR [facility] Left: Shoulder MALLORY : TRAUMA [id number] / / Screw Lk A3 Ti 4x30mm - [id number] Implanted:Qt y: 1 on 07/14/2021 by Kristian Chappell DO OR [facility] Left: Shoulder MALLORY : TRAUMA [id number] / / 3.5x55 Locking Screw Implanted:Qt y: 1 on 07/14/2021 by Kristian Chappell DO at OR [facility] Left: Shoulder MALLORY : ORTHOPAEDICS [id number] / / documented as of this encounter Procedures Procedure Name Priority Date/Time Associated Diagnosis Comments ECHOCARDIOLOGY SCANNED RESULT 11/29/2023 documented in this encounter Results * ECHOCARDIOLOGY SCANNED RESULT (11/29/2023) 11/29/2023 No Physician Data Unknown ECHOCARDIOLOGY documented in this encounter Advance Directives * Full Code (Latest Code Status on File) Date Activated Date Inactivated Comments 07/14/2021 2:48 PM 07/15/2021 12:26 AM This order reflects the patients wishes and were consensually agreed upon. Question Answer Comments Discussion of Advance Directives occurred with: Not Discussed Care Teams Garnett Mechanic Relationship Specialty Start Date End Date Kaitlin Barry MD [address] [place] [address] [place] [phone] PCP - General Family Medicine 04/22/19 documented as of this encounter
--- OUTSIDE RECORDS SUMMARY | 2023-12-06 15:46 | External Medical Summary | Summary of Care ---
Author Name Unknown Organization [facility] Address [address] [place] [address] Phone [phone] Care Team Providers Care Seasonal Warehouse Associate Name Role Phone Kaitlin Barry MD Primary Care Prov ider Reason for Referral * Evaluate & Treat - Unlimited Visits (Within 3 days (urgent)) - Authorized Specialty Diagnoses / Procedures Referred By Contac t Referred To Contact Nephrology Diagnoses STEVENSON (acute kidney injury) (HCC) Kaitlin Barry MD [address] [place] [address] [place] [id number] Referral ID Status Reason Start Date Expiration Date Visits Requested Visits Authorized [id number] Authorized Specialty Services Required 11/22/[phone] Question Answer Referral Priority Within 3 days (urgent) Where should this appointment be scheduled? [facility] What condition is this patient being seen for? Acute kidney injury Reason for Visit * Reason Onset Date Comments Appointment 11/22/2023 Nephrology/Renal US Encounter Details Date Type Department Care Team (Late st Contact Info) Description 11/22/2023 Telephone Family Medicine [address] [place] [address] Kaitlin Barry MD [address] [place] [address] [place] [address] Appointment (Nephrology/Renal US ) Allergies Active Allergy Reactions Criticality Noted Date Comments No Known Drug Allergy 02/09/2003 documented as of this encounter (statuses as of 12/01/2023) Medications Medication Sig Dispensed Refills Start Date End Date Status Cyanocobalamin (B-12) 1000 MCG CapsuleIndications:B 12 deficiency Take 1 Cap by mouth daily. 30 Cap 5 01/14/2016 Active Blood Glucose Monitoring Suppl (BoxCat ULTRA SYSTEM) W/DEVICE KITIndications:Type 2 diabetes mellitus with hemoglobin A1c goal of less than 7.0% ([facility]) Test once a day DX:E11.9 1 Kit 04/12/2016 Active nitroglycerin (NITROSTAT) 0.4 MG SUBLIndications:School Adjustment Counselor delores ischemic heart disease one tab under tongue as needed for chest pain maximum 3 doses 25 Tab 5 08/04/2019 Active Iron 28 MG Oral Tablet Take 1 Tablet by mouth in the morning. 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 30 Tablet 07/21/2022 Active OneTouch UltraSoft LancetsIndications:T ype 2 diabetes mellitus with hemoglobin A1c goal of less than 7.0% ([facility]) USE 1 TO CHECK GLUCOSE UP [...] stage 3 chronic kidney disease ([facility]) TAKE 1 TABLET BY MOUTH IN THE MORNING 90 Tablet 3 07/11/2023 Active metFORMIN HCl 1000 MG Oral TabletIndications:Di abetes mellitus with stage 3 chronic kidney disease ([facility]) Take 1 tablet by mouth twice daily 180 Tablet 1 08/10/2023 Active Metoprolol Succinate ER 100 MG Oral Tablet Extended Release 24 Hour (toPROL XL)Indications:Ische carlos enrique cardiomyopathy,Susta ined VT (ventricular tachycardia) ([facility]),Dyslipidemia, goal LDL below 70,Essential (primary) hypertension,Chronic [...] goal of less than 7.0% ([facility]) USE 1 STRIP TO CHECK GLUCOSE TWICE DAILY FASTING AND EVENING 200 Strip 1 08/10/2023 Active Furosemide 40 MG Oral Tablet (Lasix)Indications:C hronic systolic heart failure (HCC),STEVENSON (acute kidney injury) ([facility]) As needed 10/23/2023 Acti ve Clobetasol Propionate 0.05 % External Ointment (Temovate)Indication s:Dermatitis Apply topically to affected area 2 times a day. To affected area on SCALP for up to two weeks. Use pea sized amount. 30 g 2 11/06/2023 Active documented as of this encounter (statuses as of 12/01/2023) Active Problems Problem Noted Date Diagnosed Date Type 2 diabetes mellitus wit h stage 2 chronic kidney disease, without long-term current use of insulin 11/06/2023 NSVT (nonsustained ventricular tachycardia) 10/26 Chronic obstructive pulmonary disease 10/28/2021 Overview: [place] dust expossure. Former smoker. Had PFTs 2014. [...] as of this encounter (statuses as of 12/01/2023) Resolved Problems Problem Noted Date Diagnosed Date [...] as of this encounter (statuses as of 12/01/2023) Immunizations Name Administration Dates Next Due COVID-19 mRNA, LNP-s, No Pre serve, 2-Dose Series (Poptent) 09/06/2020,08/16/2020 COVID-19, LNP-s, No Preserve , Alexander-sucrose, Ages 12+ (Poptent) 07/05/2021 COVID-19, MRNA-LNP, 23-24, P F, 30 [...] encounter Miscellaneous Notes * Telephone Encounter - Marilu Gracia RN - 12/01/2023 10:13 AM EDT Left a message for pt regarding this, advised to call [phone] if he has more questions * Telephone Encounter - Arturo Carpenter OSA - 11/28/2023 11:44 AM EDT I called [...] him for 12/05/23 @ 1:40 pm at [facility]. He needs to schedule a renal US [...] 12:20 PM EDT Office Visit Family Medicine [address] [place] [phone] Franko Polanco MD [address] [place] [address] [place] [address] 12/04/2023 1:00 PM EDT Cardiac Studies Cardiology [address] [place] [address] [facility] [address] [place] [address] 12/05/2023 1:40 PM EDT Office Visit Nephrology [address] [place] [address] Ruthie Bravo MD [address] [place], [place] [address] [address] 05/20/2024 9:00 AM EST Office Visit Cardiology [address] [place] [address] Patrice Cheung PA-C [address] [place] [address] Scheduled Orders Name Type Priority Associated Diagnoses Orde r Schedule RENAL FUNCTION PANEL Lab Routine STEVENSON (acute kidney injury) ([facility]) Expected: 11/22/2023, Expires: 11/21/2024 URINALYSIS, REFLEX TO MICROSCOPIC Lab Routine STEVENSON (acute kidney injury) ([facility]) Expected: 11/22/2023, Expires: 11/21/2024 ALBUMIN / CREATININE RATIO, URINE Lab Routine STEVENSON (acute kidney injury) ([facility]) Expected: 11/22/2023, Expires: 11/21/2024 US RENAL Medical Imaging Routine STEVENSON (acute kidney injury) ([facility]) Expected: 11/22/2023, Expires: 12/21/2024 HEPATITIS B SURFACE ANTIGEN Lab Routine STEVENSON (acute kidney injury) ([facility]) Expected: 11/22/2023, Expires: 11/21/2024 Scheduled Referrals [...] Additional history exists CKD PHOS USE SMARTSET 39712 02/22/202401/27, 06/21/2021, 03/22/2020, Additional history exists Diabetic Foot Exam 02/22/2024 02/21/2023, 0 10/28/2021, 09/21/2020, Additional history exists GFR 05/21/2024 11/20/2023, 0605/2023, 08/16/2023, Additional history exists B-12 08/15/2024 08/16/2023, 02/0 12/2022, 06/21/2021, Additional history exists TSH 08/15/2024 08/16/2023, 01/27, 07/05/2022, Additional history exists O2 ASSESSMENT COMPLETED IN PAST YEAR FOR COPD 11/05/2024 11/06/2023 CKD HGB USE SMARTSET 23603 11/19/202411/19, 11/20/2023, 11/06/2023, Additional history exists DTaP,Tdap,and [...] this encounter Medical Devices Implanted Type Area Senior Field Service Engineer Device Identifier Shelf Expiration Date Model / Serial / Lot Dbx 10cc [id number] - [id number] - [id number] Implanted:Qt y: 1 on 07/14/2021 [place] Kristian Chapp[place] [facility] 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 FND [id number] 01/28/2023 [id number] / [id number] / [id number] Prox Lat Humerus Plate Implanted:Qt y: 1 on 07/14/2021 by Kirstian Chappell [place] [facility] [place]: Shoulder MALLORY : ORTHOPAEDICS [id number] / / Screw Nlk A3 Ti 3.5x32mm - [id number] Implanted:Qt y: 3 on 07/14/2021 by Kristian Chappell [place] [facility] [place]: Shoulder MALLORY : TRAUMA [id number] / / Screw Lk A3 Ti 4x40mm - [id number] Implanted:Qt y: 1 on 07/14/2021 by Kristian Chappell DO [place] [facility] [place]: Shoulder MALLORY : TRAUMA [id number] / / Screw Lk A3 Ti 4x55mm - [id number] Implanted:Qt y: 1 on 07/14/2021 by Kristian Chappell DO [place] [facility] [place]: Shoulder MALLORY : TRAUMA [id number] / / Screw Lk A3 Ti 4x30mm - [id number] Implanted:Qt y: 1 on 07/14/2021 by Kristian Chappell DO [place] [facility] [place]: Shoulder MALLORY : TRAUMA [id number] / / 3.5x55 Locking Screw Implanted:Qt y: 1 on 07/14/2021 by Kristian Chappell DO at [facility] Left: Shoulder MALLORY : ORTHOPAEDICS [id number] / / documented as of this encounter [...] Directives occurred with: Not Discussed Care Teams Seasonal Warehouse Associate Relationship Specialty Start Date End Date Kaitlin Barry MD [address] [place] [address] [place] [address] PCP - General Family Medicine 04/22/19 documented as of this encounter
--- OUTSIDE RECORDS SUMMARY | 2023-12-06 15:46 | External Medical Summary | Summary of Care ---
Author Name Unknown Organization [facility] Address [address] [facility] [place] [address] Phone [phone] Care Team Providers Care Pony Ride Operator Name Role Phone Kaitlin Barry MD Primary Care Prov ider Reason for Referral * Evaluate & Treat - Unlimited Visits (Within 3 days (urgent)) - Authorized Specialty Diagnoses / Procedures Referred By Contac t Referred To Contact [facility] / Pharmacy Diagnoses Pulmonary embolus, right (HCC) LV (left ventricular) mural thrombus Acute deep vein thrombosis (DVT) of left lower extremity, unspecified vein (HCC) Franko Polanco MD [address] [place] [address] [place] [id number] Referral ID Status Reason Start Date Expiration Date Visits Requested Visits Authorized [id number] Authorized Specialty Services Required 12/03/2023 05/31/2024 99 99 Question Answer Referral Priority Within 3 days (urgent) Where should this appointment be scheduled? [facility] Comments Anticoagulation referral for management of: Warfarin Indication and INR goal for Warfarin Management: Stroke Prevention: Atrial Fibrillation/Flutter 2.0 - 3.0 Relevant History: N/A Enoxaparin bridging required? No Minimum frequency patient should be seen in person for medication management: as appropriate per clinical condition and patient status By my signature, I understand that my patient Juan Tavera will have his medication therapy managed by the [facility] ([facility]) per established policies, procedures, and protocols. I also certify that this referral may serve as an initiation of service for the management of drug therapy in the above noted patient. [facility] providers will be responsible for scheduling patient visits, obtaining appropriate laboratory studies, and adjusting medication management therapy per patient's need, in addition to those roles spelled out in the clinic policy, procedures, and drug management protocols. I understand that the service provided by the [facility] is voluntary and have informed patient that they can refuse the service at their discretion. I am aware that the [facility] will provide me with a copy of the patient encounter via my [place] [employer]. I authorize the [facility] to carry out these activities on my behalf. I consider this program to be a necessary part of the patient's medical care. Franko Polanco MD Reason for Visit * Reason Comments Hospital Follow-Up Encounter Details Date Type Department Care Team (Late st Contact Info) Description 12/03/2023 2:30 PM EDT Office Visit Family Medicine [address] [place] [address] Franko Polanco MD [address] [place] [address] [place] [phone] LV (left ventricular) mural thrombus*; Pulmonary embolus, right (HCC); Acute deep vein thrombosis (DVT) of left [...] 5 01/14/2016 Active Blood Glucose Monitoring Suppl ([employer] ULTRA SYSTEM) W/DEVICE KITIndications:Type 2 diabetes mellitus with hemoglobin A1c goal of less than 7.0% ([facility]) Test once a day DX:E11.9 1 Kit 04/12/2016 Active nitroglycerin (NITROSTAT) 0.4 MG SUBLIndications:Pilot Control Operator Helper delores ischemic heart disease one tab under [...] kidney disease ([facility]) Take 1 tablet by mouth twice daily 180 Tablet 1 08/10/2023 Active Metoprolol Succinate ER 100 MG Oral Tablet Extended Release 24 Hour (toPROL XL)Indications:Ische carlos enrique cardiomyopathy,Susta ined VT (ventricular tachycardia) ([facility]),Dyslipidemia, goal LDL below 70,Essential (primary) hypertension,Chronic systolic heart failure ([facility]) TAKE 1 TABLET BY MOUTH IN THE [...] injury) ([facility]) As needed 10/23/2023 Acti ve Clobetasol Propionate [...] 12/03/2023 Pulmonary embolus, right 11/28/2023 Overview: [facility] right hilar 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 Former smoker. Had PFTs 2014. 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 [...] mRNA, LNP-s, No Pre serve, 2-Dose Series (Appnique) 09/06/2020,08/16/2020 COVID-19, LNP-s, No Preserve , Alexander-sucrose, [...] Sign Reading Time Taken Comments Blood Pressure 100/56 12/03/2023 2:28 PM EDT Pulse 84 12/03/2023 2:28 PM EDT Temperature 36.3 C (97.3 F) 12/03/2023 2:28 PM ED T Respiratory Rate - - Oxygen Saturation 96% 12/03/2023 2:28 PM EDT Inhaled Oxygen Concentration - - Weight 78 kg (172 lb) 12/03/2023 2:28 PM EDT Height - - Body Mass Index 24.68 11/06/2023 8:24 AM EDT documented in this encounter Progress Notes * Franko Polanco MD - 12/03/2023 2:28 PM EDT James was admitted to [facility] 11/27, discharged 12/01 for ventricular mural thrombus, DVT, PE, and LVEF 25-30% He is on Coumadin so needs to get into the clinic He was on this before and had a bleed. He feels fine today, his usual Patient Active Problem List Diagnosis [place] (myocardial infarction) GENERAL OSTEOARTHROSIS BPH without obstruction/lower [...] and stage 3 chronic kidney disease (HCC) Type 2 diabetes mellitus with stage 2 chronic kidney disease, without long-term current use of insulin (HCC) NSVT (nonsustained ventricular tachycardia) (HCC) Pulmonary embolus, right (HCC) Chronic HFrEF (heart failure with reduced ejection fraction) (HCC) Acute deep vein thrombosis (DVT) of left lower extremity, unspecified vein (HCC) Past Medical History: Diagnosis Date Benign neoplasm of colon Benign neoplasm of colon 01/17/2007 hyperplastic tissue-repeat colonoscopy in 3-5 years 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 Ischemic cardiomyopathy Leg DVT (deep venous thromboembolism), acute, left (HCC) 11/28/2023 Mural thrombus of left ventricle 11/28/2023 [place] (myocardial infarction) Post herpetic neuralgia 07/21/2022 Pulmonary embolus, right (HCC) 11/28/2023 [facility] right hilar Past Surgical History: Procedure Laterality Date CARPAL [...] performed by Suzy Dewey DO at ENDOSCOPY [facility] EGD, FLEXIBLE, DIAGNOSTIC 01/15/2020 gastritis / [facility] EGD, FLEXIBLE, DIAGNOSTIC 06/24/2021 gastritis, duodenitis, repeat 8-12 wks / [facility] EGD, FLEXIBLE, DIAGNOSTIC N/A 09/23/2021 Acquired duodenal stenosis, otherwise normal / biopsiesshowed inflammatory changes without evidenceof an underlying malignancy HUMERAL FRACTURE W/ INTERNAL FIXATION Left 07/14/2021 OPEN TREATMENT PROXIMAL HUMERUS FRACTURE performed by Kristian Chappell DO at [place] [facility] REMOVE TONSILS & ADENOIDS, UNDER 12 Tonsillectomy/Adenoids,<12 Y/O Review of patient's allergies indicates: Allergen Reactions No Known Drug Allergy Social History Socioeconomic History Marital status: Spouse name: Not on file Number of children: Not on file Years of education: Not on file Highest education level: Not on file Occupational History Not on file Tobacco Use Smoking status: Former Current packs/day: 0.00 Types: Cigarettes Quit date: 05/27/1992 Years since quittin.5 Smokeless tobacco: Never Tobacco comments: Pt quit smoking in 1991 Vaping Use Vaping status: Never Used Substance and Sexual Activity Alcohol use: Yes Comment: "a we sip every now and then" Drug use: No Sexual activity: Not on file Other Topics Concern Not on file Social History Narrative Not on file Social Determinants of Health Financial Resource Strain: Not on file Food Insecurity: No Food Insecurity (08/04/2019) Hunger Vital Sign Worried About Running Out of Food in the Last Year: Never true Ran Out of Food in the Last Year: Never true Transportation Needs: Not on file Social Connections: Unknown (12/03/2023) Social Connections How often do you feel lonely or isolated from those around you? (Adult - for ages 18 years and over): Not on file Housing Stability: Not on file Current Outpatient Medications Medication Sig Dispense Refill Cyanocobalamin (B-12) 1000 MCG Capsule Take 1 Cap by mouth daily. 30 Cap 5 Blood Glucose Monitoring Suppl ([employer] ULTRA SYSTEM) W/DEVICE KIT Test once a day DX:E11.9 1 Kit 0 nitroglycerin (NITROSTAT) 0.4 MG SUBL one tab under tongue as needed for chest pain maximum 3 doses25 Tab 5 Iron 28 MG Oral Tablet Take 1 Tablet by mouth in the morning. Aspirin 81 MG Oral Tablet Chewable Take 1 Tablet by mouth in the morning. 30 Tablet 0 eASICTouch UltraSoft Lancets USE 1 TO CHECK GLUCOSE UP TO 4 TIMES DAILY DIRECTED E11.9 400 Each 3 Ventolin HFA 108 (90 Base) MCG/ACT Inhalation Aerosol Solution Inhale 2 Puffs by mouth every 4 hours as needed for Cough, Shortness of Breath or Wheezing. 18 g 1 Levothyroxine Sodium 112 MCG Oral Tablet [...] ONCE DAILY AT BEDTIME 180 Tablet 1 Smile Family Ultra In Vitro Strip USE 1 STRIP TO CHECK GLUCOSE TWICE DAILY FASTING AND EVENING 200 Strip 1 Furosemide 40 MG Oral Tablet (Lasix) As needed Clobetasol Propionate 0.05 % External Ointment (Temovate) Apply topically to affected area 2 times a day. To affected area on SCALP for up to two weeks. Use pea sized amount. 30 g 2 Warfarin Sodium 1 MG Oral Tablet (Coumadin) Take by mouth every evening. Calcium Carb-Cholecalciferol 200-10 MG-MCG Oral Capsule Take by mouth. Hydrocortisone 2.5 % External Cream Apply a small amount to rectal area twice daily for up to 14 days. (Patient not taking: Reported on 11/28/2023) 20 g 0 Ketoconazole 2 % External Shampoo Apply topically to affected area every 3 days. Shampoo twice a week for 4 weeks. (Patient not taking: Reported on 11/28/2023) 120 mL 1 No current facility-administered medications for this visit. O: Blood pressure 100/56, pulse 84, temperature 36.3 C (97.3 F), temperature source Tympanic, weight 78 kg (172 lb), SpO2 96%. General appearance: well developed, well nourished and in no acute distress. Neck is supple without adenopathy or thyromegaly. Chest is symmetrical and moves normally. The lungs are clear without wheezes, rales, rhonchi or rubs, and the heart is irregular without murmurs or gallops, or ectopy. PMI not displaced. He has an ICD left upper chest A: LV (left ventricular) mural thrombus (Primary) - ANTI-COAGULATION REFERRAL OP Pulmonary embolus, right (HCC) - ANTI-COAGULATION REFERRAL OP Acute deep vein thrombosis (DVT) of left lower extremity, unspecified vein (HCC) - ANTI-COAGULATION REFERRAL OP documented in this encounter Plan of Treatment Upcoming Encounters Date Type Department Care Team (Late st Contact Info) Description 12/05/2023 1:40 PM EDT Office Visit Nephrology [address] [place] [phone] Ruthie Bravo MD [address] [place] [address] [place] [address] 05/20/2024 9:00 AM EST Office Visit Cardiology [address] [place] [address] Patrice Cheung PA-C [address] [place] [address] 09/10/2024 2:20 PM EDT Office Visit Family Medicine [address] [place] [phone] Kaitlin Barry MD [address] [place] [address] [place] [phone] Scheduled Referrals Name Type Priority Associated Diagnoses Orde r Schedule ANTI-COAGULATION REFERRAL OP Referral Within 3 days (urgent) Pulmonary embolus, right (HCC) LV (left ventricular) mural thrombus Acute deep vein thrombosis (DVT) of left lower extremity, unspecified vein (HCC) Ordered: 12/03/2023 Health Maintenance Due Date Last Done Comments [...] Additional history exists CKD PHOS USE SMARTSET 19459 02/22/202401/27, 06/21/2021, 03/22/2020, Additional history exists Diabetic Foot Exam 02/22/2024 02/21/2023, 0 10/28/2021, 09/21/2020, Additional history exists GFR 05/21/2024 11/20/2023, 10/26, 08/16/2023, Additional history exists B-12 08/15/2024 08/16/2023, 02/12/2022, 06/21/2021, Additional history exists TSH 08/15/2024 08/16/2023, 01/27, 07/05/2022, Additional history exists CKD HGB USE SMARTSET 50483 11/19/202411/19, 11/20/2023, 11/06/2023, Additional history exists O2 ASSESSMENT COMPLETED IN PAST YEAR FOR COPD 12/02/2024 12/03/2023 DTaP,Tdap,and Td Vaccines (3 - Td or [...] this encounter Medical Devices Implanted Type Area Loom Setter Fourdrinier Device Identifier Shelf Expiration Date Model / Serial / Lot Dbx 10cc [id number] - [id number] - [id number] Implanted:Qt y: 1 on 07/14/2021 by Kristian Chappell DO at [facility] 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 FND [id number] 01/28/2023 [id number] / [id number] / [id number] Prox Lat Humerus Plate Implanted:Qt y: 1 on 07/14/2021 by Kristian Chappell DO at [facility] Left: Shoulder MALLORY : ORTHOPAEDICS [id number] / / Screw Nlk A3 Ti 3.5x32mm - [id number] Implanted:Qt y: 3 on 07/14/2021 by Kristian Chappell DO [facility] Left: Shoulder MALLORY : TRAUMA [id number] / / Screw Lk A3 Ti 4x40mm - [id number] Implanted:Qt y: 1 on 07/14/2021 by Kristian Chappell DO [facility] Left: Shoulder MALLORY : TRAUMA [id number] / / Screw Lk A3 Ti 4x55mm - [id number] Implanted:Qt y: 1 on 07/14/2021 by Kristian Chappell DO [facility] Left: Shoulder MALLORY : TRAUMA [id number] / / Screw Lk A3 Ti 4x30mm - [id number] Implanted:Qt y: 1 on 07/14/2021 by Kristian Chappell DO at [facility] Left: Shoulder MALLORY : TRAUMA [id number] / / 3.5x55 Locking Screw Implanted:Qt y: 1 on 07/14/2021 by Kristian Chappell DO at [facility] Left: Shoulder MALLORY : ORTHOPAEDICS [id number] / / documented as of this encounter Visit Diagnoses Diagnosis LV (left ventricular) mural thrombus- Primary Acute myocardial infarction, unspecified site, episode of [...] Directives occurred with: Not Discussed Care Teams Pony Ride Operator Relationship Specialty Start Date End Date Kaitlin Barry MD [address] [place] [address] [place] [phone] PCP - General Family Medicine 04/22/19 documented as of this encounter
--- OUTSIDE RECORDS SUMMARY | 2023-12-06 15:46 | External Medical Summary | Summary of Care ---
Author Name Unknown Organization [facility] Address [address] [facility] [place] [place] [address] Phone [phone] Care Team Providers Care Power House Engineer Name Role Phone Kaitlin Barry MD Primary Care Prov ider Reason for Visit * Reason Onset Date Comments Outpatient Testing 11/30/2023 Encounter Details Date Type Department Care Team (Late st Contact Info) Description 11/30/2023 [facility]phone [facility] [place] [address] Ja Dinero CRNP [address] [place] [phone] Outpatient Testing Allergies Active Allergy Reactions Criticality Noted Date Comments No Known Drug Allergy 02/09/2003 documented as of this encounter (statuses as of 11/30/2023) Medications Medication Sig Dispensed Refills Start Date End Date Status Cyanocobalamin (B-12) 1000 MCG CapsuleIndications:B 12 deficiency Take 1 Cap by mouth daily. 30 Cap 5 01/14/2016 Active Blood Glucose Monitoring Suppl ([employer] ULTRA SYSTEM) W/DEVICE KITIndications:Type 2 diabetes mellitus with hemoglobin A1c goal of less than 7.0% ([facility]) Test once a day DX:E11.9 1 Kit 04/12/2016 Active nitroglycerin (NITROSTAT) 0.4 MG SUBLIndications:Unit Leader delores ischemic heart disease one tab under [...] enrique cardiomyopathy,Susta ined [place] (ventricular tachycardia) ([facility]),Dyslipidemia, goal LDL below 70,Essential (primary) [...] A1c goal of less than 7.0% ([facility]) USE 1 STRIP TO CHECK GLUCOSE TWICE DAILY FASTING AND EVENING 200 Strip 1 08/10/2023 Active Furosemide 40 MG Oral Tablet (Lasix)Indications:C hronic systolic heart failure ([facility]),STEVENSON (acute kidney injury) ([facility]) As needed 10/23/2023 Acti ve Clobetasol Propionate 0.05 % External Ointment (Temovate)Indication s:Dermatitis Apply topically to affected area 2 times a day. To affected area on SCALP for up to two weeks. Use pea sized amount. 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 Former smoker. Had PFTs 2014. [...] as of this encounter (statuses as of 11/30/2023) Resolved Problems Problem Noted Date Diagnosed Date [...] as of this encounter (statuses as of 11/30/2023) Immunizations Name Administration Dates Next Due COVID-19 [...] encounter Miscellaneous Notes * Telephone Encounter - Ja Dinero CRNP - 11/30/2023 11:48 AM EDT Pt was seen in clinic yesterday for diarrhea. EGD/Colonoscopy ordered but he was taken by ambulance to [facility] for DVTs - so these were not scheduled. PE also seen there - so endoscopy should be delayed until he has been on anticoagulation for 3months to avoid interrupting anticoagulation during acute clots. Please reach out to pt next week to arrange EGD/Colonoscopy for 3 months from now. He may refuse to schedule, please document response. documented in this encounter Plan of Treatment Upcoming Encounters Date Type Department Care Team (Late st Contact Info) Description 12/04/2023 1:00 PM EDT Cardiac Studies Cardiology [address] [place] [phone] [facility] [address] [place] [address] 12/05/2023 1:40 PM EDT Office Visit Nephrology [address] [place] [address] Ruthie Bravo MD [address] [place] [address] 05/20/2024 9:00 AM EST Office Visit Cardiology [address] [place] [address] Patrice Cheung PA-C [address] [place] [address] Health Maintenance Due Date Last Done Comments [...] Additional history exists CKD PHOS USE SMARTSET 01078 02/22/202401/27, 06/21/2021, 03/22/2020, Additional history exists Diabetic Foot Exam 02/22/2024 02/21/2023, 0 10/28/2021, 09/21/2020, Additional history exists GFR 05/21/2024 11/20/2023, 10/26, 08/16/2023, Additional history exists B-12 08/15/2024 08/16/2023, 0 12/2022, 06/21/2021, Additional history exists TSH 08/15/2024 08/16/2023, 01/27, 07/05/2022, Additional history exists O2 ASSESSMENT COMPLETED IN PAST YEAR FOR COPD 11/05/2024 11/06/2023 CKD HGB USE SMARTSET 10623 11/19/202411/19, 11/20/2023, 11/06/2023, Additional history exists DTaP,Tdap,and [...] this encounter Medical Devices Implanted Type Area Jacker Device Identifier Shelf Expiration Date Model / Serial / Lot Dbx 10cc [id number] - [id number] - [id number] Implanted:Qt y: 1 on 07/14/2021 by Kristian Chappell DO at [place] [facility] 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 FND [id number] 01/28/2023 [id number] / [id number] / [id number] Prox Lat Humerus Plate Implanted:Qt y: 1 on 07/14/2021 by Kristian Chappell DO at OR [facility] Left: Shoulder MALLORY : ORTHOPAEDICS [id number] / / Screw Nlk A3 Ti 3.5x32mm - [id number] Implanted:Qt y: 3 on 07/14/2021 by Kristian Chappell DO at OR [facility] Left: Shoulder MALLORY : TRAUMA [id number] / / Screw Lk A3 Ti 4x40mm - [id number] Implanted:Qt y: 1 on 07/14/2021 by Kristian Chappell DO at OR [facility] Left: Shoulder MALLORY : TRAUMA [id number] / / Screw Lk A3 Ti 4x55mm - [id number] Implanted:Qt y: 1 on 07/14/2021 by Kristian Chappell DO at OR [facility] Left: Shoulder MALLORY : TRAUMA [id number] / / Screw Lk A3 Ti 4x30mm - [id number] Implanted:Qt y: 1 on 07/14/2021 by Kristian Chappell DO at OR [facility] Left: Shoulder MALLORY : TRAUMA [id number] / / 3.5x55 Locking Screw Implanted:Qt y: 1 on 07/14/2021 by Kristian Chappell DO at OR [facility] Left: Shoulder MALLORY : ORTHOPAEDICS [id number] / / documented as of this encounter Advance Directives * Full Code (Latest Code Status on File) Date Activated Date Inactivated Comments 07/14/2021 2:48 PM 07/15/2021 12:26 AM This order reflects the patients wishes and were consensually agreed upon. Question Answer Comments Discussion of Advance Directives occurred with: Not Discussed Care Teams Power House Engineer Relationship Specialty Start Date End Date Kaitlin Barry MD [address] [place] [address] [place] [address] PCP - General Family Medicine 04/22/19 documented as of this encounter
--- OUTSIDE RECORDS SUMMARY | 2023-12-06 15:46 | External Medical Summary | Summary of Care ---
Author Name Unknown Organization [facility] Address [address] [place] [facility] [place] [address] Phone [phone] Care Team Providers Care Ex Chef Name Role Phone Kaitlin Barry MD Primary Care Prov ider Reason for Visit * Reason Onset Date Comments Outpatient Testing 11/30/2023 Encounter Details Date Type Department Care Team (Late st Contact Info) Description 11/30/2023 Telephone [facility]astroenterology, [facility] [address] [facility] [place] [address] Ja Dinero CRNP [address] [place] [address] Outpatient Testing Allergies Active Allergy Reactions Criticality Noted Date Comments No Known Drug Allergy 02/09/2003 documented as of this encounter (statuses as of 12/03/2023) Medications Medication Sig Dispensed Refills Start Date End Date Status Cyanocobalamin (B-12) 1000 MCG CapsuleIndications:B 12 deficiency Take 1 Cap by mouth daily. 30 Cap 5 01/14/2016 Active Blood Glucose Monitoring Suppl (MeFeedia ULTRA SYSTEM) W/DEVICE KITIndications:Type 2 diabetes mellitus with hemoglobin A1c goal of less than 7.0% ([facility]) Test once a day DX:E11.9 1 Kit 04/12/2016 Active nitroglycerin (NITROSTAT) 0.4 MG SUBLIndications:Model Builder delores ischemic heart disease one tab under [...] mellitus with stage 3 chronic kidney disease ([facility]) Take 1 tablet by mouth twice daily 180 Tablet 1 08/10/2023 Active Metoprolol Succinate ER 100 MG Oral Tablet Extended Release 24 Hour (toPROL XL)Indications:Ische carlos enrique cardiomyopathy,Susta ined [place] (ventricular tachycardia) ([facility]),Dyslipidemia, goal LDL below 70,Essential (primary) hypertension,Chronic systolic heart failure ([facility]) TAKE 1 TABLET BY MOUTH IN THE MORNING 90 Tablet 08/10/2023 Active Pantoprazole Sodium 40 MG Oral Tablet Delayed Release TAKE 1 TABLET BY MOUTH ONCE DAILY IN THE MORNING AND 1 TABLET ONCE DAILY AT BEDTIME 180 Tablet 08/10/2023 Active OneTouch Ultra In Vitro StripIndications:Typ e 2 diabetes mellitus with hemoglobin A1c goal of less than 7.0% ([facility]) USE 1 STRIP TO CHECK GLUCOSE TWICE DAILY FASTING AND EVENING 200 Strip 08/10/2023 Active Furosemide 40 MG Oral Tablet (Lasix)Indications:C hronic systolic heart failure ([facility]),STEVENSON (acute kidney injury) ([facility]) As needed 10/23/2023 Acti ve Clobetasol [...] vein 12/03/2023 Pulmonary embolus, right 11/28/2023 Overview: [facility] right hilar Type 2 diabetes mellitus wit h stage 2 chronic kidney disease, without long-term current use of insulin 11/06/2023 NSVT (nonsustained ventricular tachycardia) 10/26 Chronic obstructive pulmonary disease 10/28/2021 Overview: [place] dust expossure. Former smoker. Had PFTs 2014. 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 SHANITA Harding 12/03/2023 3:03 PM * Telephone Encounter - Nasrin Cruz OSA - 11/30/2023 12:52 PM EDT Lmm for pt to call back. * Telephone Encounter - Ja Dinero CRNP - 11/30/2023 11:48 AM EDT Pt was seen in clinic yesterday for diarrhea. EGD/Colonoscopy ordered but he was taken by ambulance to [facility] for DVTs - so these were not [...] 12/05/2023 1:40 PM EDT Office Visit Nephrology [address] [place] [address] Ruthie Bravo MD [address] [facility] [place] [address] 05/20/2024 9:00 AM EST Office Visit Cardiology [address] [place] [address] Patrice Cheung PA-C [address] [place] [address] 09/10/2024 2:20 PM EDT Office Visit Family Medicine [address] [place] [phone] Kaitlin Barry MD [address] [place] [address] [place] [address] Health Maintenance Due Date Last Done Comments [...] Additional history exists CKD PHOS USE SMARTSET 82201 02/22/202401/27, 06/21/2021, 03/22/2020, Additional history exists Diabetic Foot Exam 02/22/2024 02/21/2023, 0 10/28/2021, 09/21/2020, Additional history exists GFR 05/21/2024 11/20/2023, 06/1 05/2023, 08/16/2023, Additional history exists B-12 08/15/2024 08/16/2023, 02/0 12/2022, 06/21/2021, Additional history exists TSH 08/15/2024 08/16/2023, 01/27, 07/05/2022, Additional history exists CKD HGB USE SMARTSET 44103 11/19/202411/19, 11/20/2023, 11/06/2023, Additional history exists O2 [...] this encounter Medical Devices Implanted Type Area Control Panel Builder Device Identifier Shelf Expiration Date Model / Serial / Lot Dbx 10cc [id number] - [id number] - [id number] Implanted:Qt y: 1 on 07/14/2021 by Kristian Chappell DO at [place] [facility] 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 FND [id number] 01/28/2023 [id number] / [id number] / [id number] Prox Lat Humerus Plate Implanted:Qt y: 1 on 07/14/2021 by Kristian Chappell DO at OR [facility] Left: Shoulder MALLORY : ORTHOPAEDICS [id number] / / Screw Nlk A3 Ti 3.5x32mm - [id number] Implanted:Qt y: 3 on 07/14/2021 by Kristian Chappell DO at [place] [facility] Left: Shoulder MALLORY : TRAUMA [id number] / / Screw Lk A3 Ti 4x40mm - [id number] Implanted:Qt y: 1 on 07/14/2021 by Kristian Chappell DO at OR [facility] Left: Shoulder MALLORY : TRAUMA [id number] / / Screw Lk A3 Ti 4x55mm - [id number] Implanted:Qt y: 1 on 07/14/2021 by Kristian Chappell DO at OR [facility] Left: Shoulder MALLORY : TRAUMA [id number] / / Screw Lk A3 Ti 4x30mm - [id number] Implanted:Qt y: 1 on 07/14/2021 by Kristian Chappell DO at OR [facility] Left: Shoulder MALLORY : TRAUMA [id number] / / 3.5x55 Locking Screw Implanted:Qt y: 1 on 07/14/2021 by Kristian Chappell DO at OR [facility] Left: Shoulder MALLORY : ORTHOPAEDICS [id number] / / documented as of this encounter Advance Directives * Full Code (Latest Code Status on File) Date Activated Date Inactivated Comments 07/14/2021 2:48 PM 07/15/2021 12:26 AM This order reflects the patients wishes and were consensually agreed upon. Question Answer Comments Discussion of Advance Directives occurred with: Not Discussed Care Teams Ex Chef Relationship Specialty Start Date End Date Kaitlin Barry MD [address] [place] [address] [place] [phone] PCP - General Family Medicine 04/22/19 documented as of this encounter
--- OUTSIDE RECORDS SUMMARY | 2023-12-06 15:46 | External Medical Summary | Summary of Care ---
Author Name Unknown Organization [facility] Address [address] [place] [place] [address] Phone [phone] Care Team Providers Care Set Up Mechanic Automatic Line Name Role Phone Kaitlin Barry MD Primary Care Prov ider Encounter Details Date Type Department Care Team (Late st Contact Info) Description 12/03/2023 Population Health External Data Unspecified Department Allergies Active Allergy Reactions Criticality Noted Date Comments No Known Drug Allergy 02/09/2003 documented as of this encounter (statuses as of 12/03/2023) Medications Medication Sig Dispensed Refills Start Date End Date Status Cyanocobalamin (B-12) 1000 MCG CapsuleIndications:B 12 deficiency Take 1 Cap by mouth daily. 30 Cap 5 01/14/2016 Active Blood Glucose Monitoring Suppl (CareFamilyTOUCH ULTRA SYSTEM) W/DEVICE KITIndications:Type 2 diabetes mellitus with hemoglobin A1c goal of less than 7.0% ([facility]) Test once a day DX:E11.9 1 Kit 04/12/2016 Active nitroglycerin (NITROSTAT) 0.4 MG SUBLIndications:Synoptic Meteorologist delores ischemic heart disease one tab under tongue as needed for chest pain maximum 3 doses 25 Tab 5 08/04/2019 Active Iron 28 MG Oral Tablet Take 1 Tablet by mouth in the morning. 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 Former smoker. Had PFTs 2014. 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 LAST PFT -09/21/12 CHR ISCHEMIC HRT DIS NOS Heart failure, [...] mRNA, LNP-s, No Pre serve, 2-Dose Series (CICCWORLD) 09/06/2020,08/16/2020 COVID-19, LNP-s, No Preserve , Alexander-sucrose, [...] 12:20 PM EDT Office Visit Family Medicine [address] [place] [phone] Franko Polanco MD [address] [place] [address] [place] [address] 12/04/2023 1:00 PM EDT Cardiac Studies Cardiology [address] [place] [address] [place], Pacer [address] [place] [address] 12/05/2023 1:40 PM EDT Office Visit Nephrology [address] [place] [address] Ruthie Bravo MD [address] [place] [address] [place] [address] 05/20/2024 9:00 AM EST Office Visit Cardiology [address] [place] [address] Patrice Cheung PA-C [address] [place] [address] Health Maintenance Due Date Last Done Comments [...] Additional history exists CKD PHOS USE SMARTSET 19334 02/22/202401/27, 06/21/2021, 03/22/2020, Additional history exists Diabetic Foot Exam 02/22/2024 02/21/2023, 0 10/28/2021, 09/21/2020, Additional history exists GFR 05/21/2024 11/20/2023, 10/26, 08/16/2023, Additional history exists B-12 08/15/2024 08/16/2023, 02/0 12/2022, 06/21/2021, Additional history exists TSH 08/15/2024 08/16/2023, 01/27, 07/05/2022, Additional history exists O2 ASSESSMENT COMPLETED IN PAST YEAR FOR COPD 11/05/2024 11/06/2023 CKD HGB USE SMARTSET 65732 11/19/202411/19, 11/20/2023, 11/06/2023, Additional history exists DTaP,Tdap,and [...] this encounter Medical Devices Implanted Type Area Wheel Aligner Device Identifier Shelf Expiration Date Model / Serial / Lot Dbx 10cc 030863 - [id number] - [id number] Implanted:Qt y: 1 on 07/14/2021 by Kristian Chappell DO at OR [facility] 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 FND [id number] 01/28/2023 [id number] / [id number] / [id number] Prox Lat Humerus Plate Implanted:Qt y: 1 on 07/14/2021 by Kristian Chappell DO OR [facility] Left: Shoulder MALLORY : ORTHOPAEDICS [id number] / / Screw Nlk A3 Ti 3.5x32mm - [id number] Implanted:Qt y: 3 on 07/14/2021 by Kristian Chappell DO OR [facility] Left: Shoulder MALLORY : TRAUMA [id number] / / Screw Lk A3 Ti 4x40mm - [id number] Implanted:Qt y: 1 on 07/14/2021 by Kristian Chappell DO at OR [facility] Left: Shoulder MALLORY : TRAUMA [id number] / / Screw Lk A3 Ti 4x55mm - [id number] Implanted:Qt y: 1 on 07/14/2021 by Kristian Chappell DO OR [facility] Left: Shoulder MALLORY : TRAUMA [id number] / / Screw Lk A3 Ti 4x30mm - [id number] Implanted:Qt y: 1 on 07/14/2021 by Kristian Chappell DO OR [facility] Left: Shoulder MALLORY : TRAUMA [id number] / / 3.5x55 Locking Screw Implanted:Qt y: 1 on 07/14/2021 by Kristian Chappell DO at OR [facility] Left: Shoulder MALLORY : ORTHOPAEDICS [id number] / / documented as of this encounter Advance Directives * Full Code (Latest Code Status on File) Date Activated Date Inactivated Comments 07/14/2021 2:48 PM 07/15/2021 12:26 AM This order reflects the patients wishes and were consensually agreed upon. Question Answer Comments Discussion of Advance Directives occurred with: Not Discussed Care Teams Set Up Mechanic Automatic Line Relationship Specialty Start Date End Date Kaitlin Barry MD [address] [place] [address] [place] [phone] PCP - General Family Medicine 04/22/19 documented as of this encounter
--- OUTSIDE RECORDS SUMMARY | 2023-12-06 15:46 | External Medical Summary | Summary of Care ---
Author Name Unknown Organization [facility] Address [address] [facility] [address] Phone [phone] Care Team Providers Care Women'S Swim Coach Name Role Phone Kaitlin Barry MD Primary Care Prov ider Reason for Visit * Reason Comments Dosage Adjustment Via Phone (anticoag Cl inic) * Evaluate & Treat - Unlimited Visits (Within 3 days (urgent)) - Authorized Specialty Diagnoses / Procedures Referred By Maximo t Referred To Contact [facility] / Pharmacy Diagnoses Pulmonary embolus, right (HCC) LV (left ventricular) mural thrombus Acute deep vein thrombosis (DVT) of left lower extremity, unspecified vein (HCC) Franko Polanco MD [address] [place] [address] [place] [address] Referral ID Status Reason Start Date Expiration Date Visits Requested Visits Authorized [id number] Authorized Specialty Services Required 12/03/2023 05/31/2024 99 99 Encounter Details Date Type Department Care Team (Latest Contact Info) Description 12/03/2023 5:10 PM EDT Anticoagulation Pharmacy, [address] [place] [address] [place] [address] Anticoagulation management encounter*; LV (left ventricular) mural thrombus; Pulmonary embolus, right (HCC); Acute deep vein [...] 5 01/14/2016 Active Blood Glucose Monitoring Suppl (Control Medical Technology ULTRA SYSTEM) W/DEVICE KITIndications:Type 2 diabetes mellitus with hemoglobin A1c goal of less than 7.0% ([facility]) Test once a day DX:E11.9 1 Kit 04/12/2016 Active nitroglycerin (NITROSTAT) 0.4 MG SUBLIndications:Dev Technical Mgr delores ischemic heart disease one tab under [...] in the morning. 30 Tablet 07/21/2022 Active Yell.ruTouch UltraSoft LancetsIndications:T ype 2 diabetes mellitus with [...] stage 3 chronic kidney disease ([facility]) TAKE 1 TABLET BY MOUTH IN THE MORNING 90 Tablet 3 07/11/2023 Active metFORMIN HCl 1000 MG Oral TabletIndications:Di abetes mellitus with stage 3 chronic kidney disease ([facility]) Take 1 tablet by mouth twice [...] injury) ([facility]) As needed 10/23/2023 Acti ve Clobetasol [...] vein 12/03/2023 Pulmonary embolus, right 11/28/2023 Overview: [facility] right hilar Type 2 diabetes mellitus wit h stage 2 chronic kidney disease, without long-term current use of insulin 11/06/2023 NSVT (nonsustained ventricular tachycardia) 10/26 Chronic obstructive pulmonary disease 10/28/2021 Overview: [place] dust expossure. Former smoker. Had PFTs 2014. 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 Per chart review patient recently had OV with GI regarding diarrhea. Taken by ambulance to [facility] for[facility] management of PE/DVT and recurrent thrombus. Patient on warfarin in the past but was stopped d/t GI bleed. Per discharge summary, "Discussed case with rod finisher who reviewed ECHO: given presence of LV thrombus, warfarin is thesuperior option for AC. Discussed at bedside with patient. He denies any recent GI discomfort, bleeding. He notes his diarrhea has stopped. When discussing colonoscopy for future, he states he will likely "not go through with it." He is agreeable to try Coumadin once more and advised to notify for any signs of GI bleed. Attempted to trial lovenox and discharge, however, lovenox roughly 60 dollars and that is a cost patient cannot incur." Per chart review patient does not have Rx coverage. Called and spoke to patient who denies any current bleeding/bruising. Agreeable to come in for OFS tomorrow, 12/03. Lesli Hu RPh Medication Therapy Management Clinic 12/03/2023 3:48 PM documented in this encounter Plan of Treatment Upcoming Encounters Date Type Department Care Team (Late st Contact Info) Description 12/04/2023 2:40 PM EDT Anticoagulation Pharmacy, [address] [place] [address] [place] [address] 12/05/2023 1:40 PM EDT Office Visit Nephrology [address] [place] [address] Ruthie Bravo MD [address] [facility] [address] 05/20/2024 9:00 AM EST Office Visit Cardiology [address] [place] [address] Patrice Cheung PA-C [address] [place] [address] 09/10/2024 2:20 PM EDT Office Visit Family Medicine [address] [place] [phone] Kaitlin Barry MD [address] [place] [address] [place] [address] Scheduled Orders Name Type Priority Associated Diagnoses Orde r Schedule PT INR Lab Routine LV (left ventricular) mural thrombus Pulmonary embolus, right (HCC) Acute deep vein thrombosis (DVT) of left lower extremity, unspecified vein (HCC) Anticoagulation management encounter 26 Occurrences starting 12/03/2023 until 12/02/2024 INR FINGERSTICK, POINT OF CARE Point of Care Testing - Unsolicited Results STAT LV (left ventricular) mural thrombus Pulmonary embolus, right (HCC) Acute deep vein thrombosis (DVT) of left lower extremity, unspecified vein (HCC) Anticoagulation management encounter Every 2 Weeks for 26 Occurrences starting 12/03/2023 until 12/02/2024 Health Maintenance Due Date Last Done Comments [...] Additional history exists CKD PHOS USE SMARTSET 83312 02/22/202401/27, 06/21/2021, 03/22/2020, Additional history exists Diabetic Foot Exam 02/22/2024 02/21/2023, 0 10/28/2021, 09/21/2020, Additional history exists GFR 05/21/2024 11/20/2023, 0605/2023, 08/16/2023, Additional history exists B-12 08/15/2024 08/16/2023, 02/0 12/2022, 06/21/2021, Additional history exists TSH 08/15/2024 08/16/2023, 01/27, 07/05/2022, Additional history exists CKD HGB USE SMARTSET 50029 11/19/202411/19, 11/20/2023, 11/06/2023, Additional history exists O2 [...] this encounter Medical Devices Implanted Type Area Dietist Device Identifier Shelf Expiration Date Model / Serial / Lot Dbx 10cc 635603 - [id number] - [id number] Implanted:Qt y: 1 on 07/14/2021 by Kristian Chappell DO at OR [facility] 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 FND [id number] 01/28/2023 [id number] / [id number] / [id number] Prox Lat Humerus Plate Implanted:Qt y: 1 on 07/14/2021 by Kristian Chappell DO OR [facility] Left: Shoulder MALLORY : ORTHOPAEDICS [id number] / / Screw Nlk A3 Ti 3.5x32mm - [id number] Implanted:Qt y: 3 on 07/14/2021 by Kristian Chappell DO at OR [facility] Left: Shoulder MALLORY : TRAUMA [id number] / / Screw Lk A3 Ti 4x40mm - [id number] Implanted:Qt y: 1 on 07/14/2021 by Kristian Chappell DO at OR [facility] Left: Shoulder MALLORY : TRAUMA [id number] / / Screw Lk A3 Ti 4x55mm - [id number] Implanted:Qt y: 1 on 07/14/2021 by Kristian Chappell DO at OR [facility] Left: Shoulder MALLORY : TRAUMA [id number] / / Screw Lk A3 Ti 4x30mm - [id number] Implanted:Qt y: 1 on 07/14/2021 by Kristian Chappell DO at OR [facility] Left: Shoulder MALLORY : TRAUMA [id number] / / 3.5x55 Locking Screw Implanted:Qt y: 1 on 07/14/2021 by Kristian Chappell DO at OR [facility] Left: Shoulder MALLORY : ORTHOPAEDICS [id number] / / documented as of this encounter Procedures Procedure Name Priority Date/Time Associated Diagnosis Comments OUTSIDE LAB-PT/INR Routine 12/02/2023 OUTSIDE LAB-PT/INR Routine 12/01/2023 documented in this encounter Results * OUTSIDE LAB-PT/INR (12/02/2023) Pathologist [facility] INR-OUTSIDE LAB 2.2 12/02/2023 History Per Patient LABORATORY * OUTSIDE LAB-PT/INR (12/01/2023) Pathologist [facility] INR-OUTSIDE LAB 1.3 12/01/2023 History Per Patient LABORATORY documented in this encounter Visit Diagnoses Diagnosis Anticoagulation management encounter- Primary Encounter for therapeutic drug monitoring LV (left ventricular) mural thrombus Acute myocardial [...] Directives occurred with: Not Discussed Care Teams Women'S Swim Coach Relationship Specialty Start Date End Date Kaitlin Barry MD [address] [place] [address] [place] [address] PCP - General Family Medicine 04/22/19 documented as of this encounter
--- OUTSIDE RECORDS SUMMARY | 2023-12-06 15:46 | External Medical Summary | Summary of Care ---
Author Name Unknown Organization [facility] Address [address] [place] [facility] [place] [address] Phone [phone] Care Team Providers Care Orthopedics Teacher Name Role Phone Kaitlin Barry MD Primary Care Prov ider Reason for Visit * Reason Onset Date Comments Outpatient Testing 11/30/2023 Encounter Details Date Type Department Care Team (Late st Contact Info) Description 11/30/2023 Telephone [facility] [address] [facility] [place] [address] Ja Dinero CRNP [address] [place] [address] Outpatient Testing Allergies Active Allergy Reactions Criticality Noted Date Comments No Known Drug Allergy 02/09/2003 documented as of this encounter (statuses as of 11/30/2023) Medications Medication Sig Dispensed Refills Start Date End Date Status Cyanocobalamin (B-12) 1000 MCG CapsuleIndications:B 12 deficiency Take 1 Cap by mouth daily. 30 Cap 5 01/14/2016 Active Blood Glucose Monitoring Suppl ([employer] ULTRA SYSTEM) W/DEVICE KITIndications:Type 2 diabetes mellitus with hemoglobin A1c goal of less than 7.0% ([facility]) Test once a day DX:E11.9 1 Kit 04/12/2016 Active nitroglycerin (NITROSTAT) 0.4 MG SUBLIndications:Artist'S Model delores ischemic heart disease one tab under [...] (Lasix)Indications:C hronic systolic heart failure ([facility]),STEVENSON (acute kidney injury) ([facility] [...] 10/26 Chronic obstructive pulmonary disease 10/28/2021 Overview: [place] expossure. Former smoker. Had PFTs 2014. [...] mRNA, LNP-s, No Pre serve, 2-Dose Series ([employer]) 09/06/2020,08/16/2020 COVID-19, LNP-s, No Preserve , Alexander-sucrose, [...] encounter Miscellaneous Notes * Telephone Encounter - Nasrin Cruz OSA - 11/30/2023 12:52 PM EDT Lmm for pt to call back. * Telephone Encounter - Ja Dinero CRNP - 11/30/2023 11:48 AM EDT Pt was seen in clinic yesterday for diarrhea. EGD/Colonoscopy ordered but he was taken by ambulance to [facility] for DVTs - so these were not [...] 12:20 PM EDT Office Visit Family Medicine [address] [place] [phone] Franko Polanco MD [address] [place] [address] [place] [address] 12/04/2023 1:00 PM EDT Cardiac Studies Cardiology [address] [place] [address] [facility] [address] [place] [address] 12/05/2023 1:40 PM EDT Office Visit Nephrology [address] [place] [address] Ruthie Bravo MD [address] [place], [place] [address] [address] 05/20/2024 9:00 AM EST Office Visit Cardiology [address] [place] [address] Patrice Cheung PA-C [address] [place] [address] Health Maintenance Due Date Last Done Comments [...] Additional history exists CKD PHOS USE SMARTSET 61329 02/22/202401/27, 06/21/2021, 03/22/2020, Additional history exists Diabetic Foot Exam 02/22/2024 02/21/2023, 0 10/28/2021, 09/21/2020, Additional history exists GFR 05/21/2024 11/20/2023, 10/26, 08/16/2023, Additional history exists B-12 08/15/2024 08/16/2023, 02/0 12/2022, 06/21/2021, Additional history exists TSH 08/15/2024 08/16/2023, 01/27, 07/05/2022, Additional history exists O2 ASSESSMENT COMPLETED IN PAST YEAR FOR COPD 11/05/2024 11/06/2023 CKD HGB USE SMARTSET 97767 11/19/202411/19, 11/20/2023, 11/06/2023, Additional history exists DTaP,Tdap,and [...] this encounter Medical Devices Implanted Type Area [employer] Device Identifier Shelf Expiration Date Model / Serial / Lot Dbx 10cc [id number] - [id number] - [id number] Implanted:Qt y: 1 on 07/14/2021 by Kristian Chappell DO at OR [facility] [place] 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 FND [id number] 01/28/2023 [id number] / [id number] / [id number] Prox Lat Humerus Plate Implanted:Qt y: 1 on 07/14/2021 by Kristian Chappell DO at OR [facility] [place] Left: Shoulder MALLORY : ORTHOPAEDICS [id number] / / Screw Nlk A3 Ti 3.5x32mm - [id number] Implanted:Qt y: 3 on 07/14/2021 by Kristian Chappell DO at OR [facility] Left: Shoulder MALLORY : TRAUMA [id number] / / Screw Lk A3 Ti 4x40mm - [id number] Implanted:Qt y: 1 on 07/14/2021 by Kristian Chappell DO at OR [facility] Left: Shoulder MALLORY : TRAUMA [id number] / / Screw Lk A3 Ti 4x55mm - [id number] Implanted:Qt y: 1 on 07/14/2021 by Kristian Chappell DO at OR [facility] Left: Shoulder MALLORY : TRAUMA [id number] / / Screw Lk A3 Ti 4x30mm - [id number] Implanted:Qt y: 1 on 07/14/2021 by Kristian Chappell DO at OR [facility] Left: Shoulder MALLORY : TRAUMA [id number] / / 3.5x55 Locking Screw Implanted:Qt y: 1 on 07/14/2021 by Kristian Chappell DO at OR [facility] Left: Shoulder MALLORY : ORTHOPAEDICS [id number] / / documented as of this encounter Advance Directives * Full Code (Latest Code Status on File) Date Activated Date Inactivated Comments 07/14/2021 2:48 PM 07/15/2021 12:26 AM This order reflects the patients wishes and were consensually agreed upon. Question Answer Comments Discussion of Advance Directives occurred with: Not Discussed Care Teams Orthopedics Teacher Relationship Specialty Start Date End Date Kaitlin Barry MD [address] [place] [address] [place] [address] PCP - General Family Medicine 04/22/19 documented as of this encounter
--- NOTE | 2023-12-06 16:01 | Gastrointestinal Consultation ---
<Statement entered by Bailey Young MD - 12/06/23 16:10> I have examined the patient, reviewed the History & Physical and in the interval since the performance of the History & Physical I have noted the following changes of clinical significance: no changes noted. I agree with the documentation provided by [place] with no additional comments. Date of Consultation December 06, 2023 Assessment & Plan (1) GI bleed: Patient with new onset rectal bleeding secondary to starting coumadin for recent admission for emboli. He has had no further bleeding since admission. no other GI concerns. - given new emboli and rectal bleeding, there is concern for a possible malignancy. will plan to update egd and colonoscopy tomorrow. - continue to monitor hgb/hct and transfuse as needed. - continue with protonix 40mg po bid. History of Present Illness Reason for Consultation: rectal bleeding Requesting Physician: Mary Martinez PAC Attending Physician: Yen Vega MD History of Present Illness Patient is an 83 year old male with past medical history of HTN, HLD, ischemic cardiomyopathy, history [place], chronic HFrEF, s/p defibrillator, h/o NSVT, history LV mural thrombus, h/o GI bleed on Coumadin, duodenitis, DM II, hypothyroidism, GERD, current DVT and PE anticoagulated on Coumadin who presented to ER for rectal bleeding yesterday. He was recent inpatient with new diagnosis of ventricular mural thrombus, extensive left leg DVT, submassive PE. He noticed that bleeding started two days after discharge and so he stopped his coumadin. he tells me he did have issues with rectal bleeding on coumadin in the past but that this was several years ago. He denies any further bleeding since admission. Patient denies any current issues with nausea, vomiting, dysphagia, heartburn, abdominal pain, unintentional weight loss, or melena. 12/04 hgb 12, INR 1.5 12/05 hgb 12.4 Allergies Allergy/AdvReac Type Severity Reaction Status Date / Time No Known Allergies Allergy Verified 12/05/23 18:07 Home Medications Medication Instructions Recorded Confirmed Type aspirin 81 mg tablet,delayed 81 mg PO QAM 01/14/20 12/05/23 History release (Amanda Low Dose Aspirin) cyanocobalamin (vitamin B-12) 1,000 mcg PO QAM 01/14/20 12/05/23 History 1,000 mcg capsule isosorbide mononitrate 30 mg 30 mg PO QAM 01/14/20 12/05/23 History tablet,extended release 24 hr metformin 1,000 mg tablet 1,000 mg PO BID 01/14/20 12/05/23 History nitroglycerin 0.4 mg sublingual 0.4 mg sublingual UD PRN Chest Pain 01/14/20 12/05/23 History tablet (Nitrostat) atorvastatin 40 mg tablet 40 mg PO QAM 06/22/21 12/05/23 History albuterol sulfate 90 mcg/actuation 2 puff inhalation Q4H PRN 11/28/23 12/05/23 History aerosol inhaler COUGH/SHORT OF BREATH/WHEEZING clobetasol 0.05 % topical ointment 1 applic topical BID PRN Skin 11/28/23 12/05/23 History Irritation ferrous sulfate 27 mg iron tablet 27 mg PO DAILY 11/28/23 12/05/23 History levothyroxine 112 mcg tablet 112 mcg PO DAILYBB 11/28/23 12/05/23 History metoprolol succinate 100 mg 100 mg PO QAM 11/28/23 12/05/23 History tablet,extended release 24 hr pantoprazole 40 mg tablet,delayed 40 mg PO BID 11/28/23 12/05/23 History release ergocalciferol (vitamin D2) 1,250 1,250 mcg PO Q7D@0900 #12 caps 11/30/23 12/05/23 Rx mcg (50,000 unit) capsule warfarin 1 mg tablet 1 mg PO DAILY #30 tabs 12/02/23 12/05/23 Rx Patient History Medical History History of blood transfusion last 06/23/21 @ [facility] ICD (implantable cardioverter-defibrillator) in place [facility] Poor historian History of left heart catheterization 1991 [place], NO STENTS 2004 [facility], UNSURE OF STENTS Osteoarthritis History of GI bleed Diabetes mellitus, type 2 Hyperlipidemia Hypertension Surgical History History of implantable cardioverter-defibrillator (ICD) placement (~10/27/20) meditronic History of left shoulder replacement History of esophagogastroduodenoscopy (EGD) last 06/24/21 @ [facility] History of carpal tunnel release of both wrists History of colonoscopy 5 YEARS AGO History of cataract surgery BOTH EYES History of tooth extraction History of adenoidectomy History of tonsillectomy Family History Other No family history of adverse response to anesthesia Social History Smoking Status: Former smoker Second Hand Exposure: No; Do You Dip or Chew Tobacco: No; Hx Alcohol Use: Yes Alcohol type: beer and wine Hx Substance Use: No Preferred Language: Lithuanian Communication Ability: Effective Laundry Manager Required: No Beliefs That Will Affect Care: None Current Living Situation: Alone Current Living Situation Comment: home with nephews and brother nearby Feels Safe at Home: Yes Safety Concerns: Feels Safe At This Time Assistive Devices: Glasses Review of Systems Review of Systems: All systems reviewed & are unremarkable except as noted in HPI & below Physical Exam Constitutional: WD/WN, vitals as above Respiratory: normal respiratory effort, lungs clear to auscultation Cardiovascular: RRR, no murmur, no edema Gastrointestinal (Abdomen): normal bowel sounds, soft, nontender, no hepatosplenomegaly Psychiatric: Orientation: alert and oriented x 3 Affect: euthymic affect Results & Data Vital Signs (Past 12 Hours) Vital Signs Temp Pulse Resp BP BP Pulse Ox O2 Del Method 12/06/23 11:36 97.3 F L 58 L 19 95/59 L 96 Room Air 12/06/23 10:00 Room Air 12/06/23 08:08 107/59 L 12/06/23 07:13 97.5 F L 55 L 19 97/58 L 96 Room Air Coding Level of Care Code 86636 INT INP/OBS CARE 2/55MIN Diagnoses GI bleed K92.2
[2023-12-06] MEDS: LAVAGE SOLUTION 4000ML PO SCH (17:08)
--- OUTSIDE RECORDS SUMMARY | 2023-12-06 18:13 | External Medical Summary | Summary of Care ---
Author Name Unknown Organization [facility] Address [address] [facility] [place] [address] Phone [phone] Care Team Providers Care Dock Supervisor Name Role Phone Kaitlin Barry MD Primary Care Prov ider Reason for Visit * Reason Comments Outpatient Testing Encounter Details Date Type Department Care Team (Late st Contact Info) Description 12/05/2023 1:20 PM EDT Laboratory Laboratory [address] [place] [address] , Specimen Drop Off [address] [place] [address] Diarrhea, unspecified type Allergies Active Allergy Reactions Criticality Noted Date Comments No Known Drug Allergy 02/09/2003 documented as of this encounter (statuses as of 12/05/2023) Medications Medication Sig Dispensed Refills Start Date End Date Status Cyanocobalamin (B-12) 1000 MCG CapsuleIndications:B 12 deficiency Take 1 Cap by mouth daily. 30 Cap 5 01/14/2016 Active Blood Glucose Monitoring Suppl ([employer] ULTRA SYSTEM) W/DEVICE KITIndications:Type 2 diabetes mellitus with hemoglobin A1c goal of less than 7.0% ([facility]) Test once a day DX:E11.9 1 Kit 04/12/2016 Active nitroglycerin (NITROSTAT) 0.4 MG SUBLIndications:Branding Machine Operator delores ischemic heart disease one [...] Oral Tablet (Lasix)Indications:C hronic systolic heart failure ([facility]),STEVENSON (acute kidney injury) ([facility]) As needed 10/23/2023 Acti ve Clobetasol Propionate [...] 12/03/2023 Pulmonary embolus, right 11/28/2023 Overview: [facility] right hilar Type 2 diabetes mellitus wit h stage 2 chronic kidney disease, without long-term current use of insulin 11/06/2023 NSVT (nonsustained ventricular tachycardia) 10/26 Chronic obstructive pulmonary disease 10/28/2021 Overview: [place] dust expossure. Former smoker. Had PFTs 2014. [...] mRNA, LNP-s, No Pre serve, 2-Dose Series ([employer]) 09/06/2020,08/16/2020 COVID-19, LNP-s, No Preserve , Alexander-sucrose, [...] 01/01/2020 Hunger Vital Sign Answer Date Recorded Within the past 12 months, y ou worried that your food would run out before you got the money to buy more. Never true 12/05/19 24 Within the past 12 months, t he food you bought just didn't last and you didn't have money to get more. Never true 12/05/2023 Childcare Answer Date Recorded Do you feel overwhelmed with taking care of a child, family member or friend? No 12/05/2023 Does your family need help f inding childcare? (Household - for ages 0-17 years) Not on file 12/05/2023 Clothing Answer Date Recorded Have you been unable to get clothing when it was really needed? No 12/05/2023 Is your family able to get c lothes or diapers when needed? (Household - for ages 0-17 years) Not on file 12/05/2023 Personal Safety Answer Date Recorded Do you feel unsafe or have concerns for your saf ety? No 12/05/2023 Do you have concerns for you r family's safety? (Household - for ages 0-17 years) Not on file 12/05/2023 Utilities Answer Date Recorded Do you have trouble paying y our heating, water, or electric bill? No 12/05/2023 Is your family able to pay t he heat, water, or electric bill? (Household - for ages 0-17 years) Not on file 12/05/2023 Does your family have access to good internet? (Household - for ages 0-17 years) Not on file 12/05/2023 Employment Status Answer Date Recorded Are you unemployed or without regular income? No 12/05/2023 Does the household have a re lar source of income? (Household - for ages 0-17 years) Not on file 12/05/2023 Social Connections Answer Date Recorded How often do you feel lonely or isolated from th ose around you? Never 12/05/2023 Financial Resource Strain Answer Date R ecorded Do you have any trouble payi ng for your medications, or do you think you might in the future? No 12/05/2023 Does your family have troubl e paying for medicine? (Household - for ages 0-17 years) Not on file 12/05/2023 Transportation Needs Answer Date Record ed Do you have trouble getting a ride to medical visits or work? (Adult - for ages 18 years and over) Not on file 12/05/2023 Does your family have a hard time getting a ride to doctors visits? (Household - for ages 0-17 years) Not on file 12/05/2023 Has lack of transportation k ept you from medical appointments, meetings, work, or from getting things needed for daily living? Check all that apply. No 12/05/2023 Do you (or your family) have trouble finding or paying for a ride (transportation)? (Household - for ages 0-17 years) Not on file 12/05/2023 Housing Stability Answer Date Recorded Do you currently live in a s helter or have no steady place to sleep at night? No 12/05/2023 Do you think you are at risk of becoming homeless? (Adult - for ages 18 years and over) Not on file 12/05/2023 Does your family worry about paying for your home or becoming homeless? (Household - for ages 0-17 years) Not on file 0 12/05/2023 Are you homeless or worried that you might be in the future? No 12/05/2023 Are you (or your family) ed eless or worried that you might be in the future? (Household - for ages 0-17 years) Not on file Food Insecurity Answer Date Recorded Do you need food for this week? Yes 12/05/2023 Are you able to get enough f ood for your family? (Household - for ages 0-17 years) Not on file 12/05/2023 Does your family need food t his week? (Household - for ages 0-17 years) Not on file 12/05/2023 Do you always have enough fo od for your family? (Household - for ages 0-17 years) Not on file 12/05/2023 Sex and Gender Information Value Date Recorded [...] 12/05/2023 1:40 PM EDT Office Visit Nephrology [address] [place] [address] Ruthie Bravo MD [address] [place] [address] Arrived 12/05/2023 5:10 PM EDT Anticoagulation Pharmacy, [address] [place] [address] [place] [address] 05/20/2024 9:00 AM EST Office Visit Cardiology [address] [place] [address] Patrice Cheung PA-C [address] [place] [address] 09/10/2024 2:20 PM EDT Office Visit Family Medicine [address] [place] [phone] Kaitlin Barry MD [address] [place] [address] [place] [address] Pending Results Name Type Priority Associated Diagnoses Date /Time CLOSTRIDIUM DIFFICILE, PCR Lab Routine Diarrhea, unspecified type 12/05/2023 1:19 PM EDT GASTROINTESTINAL PATHOGEN PANEL, STOOL Lab Routine Diarrhea, unspecified type 12/05/2023 1:19 PM EDT GASTROINTESTINAL PATHOGEN PANEL PCR Lab Routine Diarrhea, unspecified type 12/05/2023 1:19 PM EDT GASTROINTESTINAL PATHOGEN PANEL CULTURE Lab Routine Diarrhea, unspecified type 12/05/2023 1:19 PM EDT Health Maintenance Due Date Last Done Comments COVID-19 Vaccine ( season) 2023 04/17/2023, 07/05/2021, [...] Additional history exists CKD HGB USE SMARTSET 14427 12/03/202412/03, 12/04/2023, 11/20/2023, Additional history exists CKD PHOS USE SMARTSET 90470 12/03/2024 07/0 01/2024, 02/21/2023, 06/21/2021, Additional history exists O2 ASSESSMENT COMPLETED IN PAST YEAR FOR COPD 12/03/2024 12/04/2023 Depression Screening 12/04/2024 12/05/2023 DTaP,Tdap,and Td Vaccines (3 - Td or [...] this encounter Medical Devices Implanted Type Area Professor Of Biological Sciences Device Identifier Shelf Expiration Date Model / Serial / Lot Dbx 10cc [id number] - [id number] Implanted:Qt y: 1 on 07/14/2021 by Kristian Chappell DO at OR [facility] [place] 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 FND [id number] 01/28/2023 [id number] / [id number] / [id number] Prox Lat Humerus Plate Implanted:Qt y: 1 on 07/14/2021 by Kristian Chappell DO at OR [facility] Left: Shoulder MALLORY : ORTHOPAEDICS [id number] / / Screw Nlk A3 Ti 3.5x32mm - [id number] Implanted:Qt y: 3 on 07/14/2021 by Kristian Chappell DO at OR [facility] Left: Shoulder MALLORY : [employer] [id number] / / Screw Lk A3 Ti 4x40mm - [id number] Implanted:Qt y: 1 on 07/14/2021 by Kristian Chappell DO at OR [facility] Left: Shoulder MALLORY : [employer] [id number] / / Screw Lk A3 Ti 4x55mm - [id number] Implanted:Qt y: 1 on 07/14/2021 by Kristian Chappell DO at OR [facility] Left: Shoulder MALLORY : [employer]UMA [id number] / / Screw Lk A3 Ti 4x30mm - [id number] Implanted:Qt y: 1 on 07/14/2021 by Kristian Chappell DO at OR [facility] Left: Shoulder MALLORY : [employer]UMA [id number] / / 3.5x55 Locking Screw Implanted:Qt y: 1 on 07/14/2021 by Kristian Chappell DO at OR [facility] Left: Shoulder MALLORY : ORTHOPAEDICS [id number] / / documented as of this encounter Visit Diagnoses Diagnosis Diarrhea, unspecified type documented in this encounter Additional Health Concerns Infection Onset Date Last Indicated Resolved Time C. difficile Rule-Out 12/05/2023 12/05/2023 Gastrointestinal Rule-Out 12/05/2023 12/05/2023 documented as of this encounter Advance Directives * Full Code (Latest Code Status on File) Date Activated Date Inactivated Comments 07/14/2021 2:48 PM 07/15/2021 12:26 AM This order reflects the patients wishes and were consensually agreed upon. Question Answer Comments Discussion of Advance Directives occurred with: Not Discussed Care Teams Dock Supervisor Relationship Specialty Start Date End Date Kaitlin Barry MD [address] [place] [address] [place] [address] PCP - General Family Medicine 04/22/19 documented as of this encounter
[2023-12-07 08:25] LABS: BUN Creatinine Ratio 11.7 (10-20); Calcium 7.3 mg/dl (8.6-10.3); Creatinine Clr Calc Pharmacy 57.1 ml/min; Est GFR (Non-African American) 67.3 ml/min; Magnesium 1.5 mg/dl (1.7-2.4); Phosphorus 3.2 mg/dl (2.5-4.9); Potassium 3.8 mmol/L (3.5-5.1)
[2023-12-07 09:11] LABS: Hematocrit (blood only) 38.7 % (42.0-52.0); Hemoglobin 12.9 g/dl (14.0-18.0); Mean Corpuscular Hemoglobin 31.7 pg (25.0-34.0); Mean Corpuscular Hgb Conc 33.3 g/dL (32.0-36.0); Mean Corpuscular Volume 95.1 fL (80.0-100.0); Mean Platelet Volume 10.3 fL (9.4-12.4); Platelet Count 279 K/uL (130-400); RDW Standard Deviation 51.7 fL (36.4-46.3); Red Blood Count 4.07 M/uL (4.70-6.10); White Blood Count 4.58 K/ul (4.8-10.8)
[2023-12-07 09:26] LABS: ANTI-Xa, UFH(UnfractionatedHep 1.01 IU/ml (0.3-0.7)
--- NOTE | 2023-12-07 09:51 | History & Physical Bridge Note ---
Date of Service December 07, 2023 History & Physical Bridge Note I have examined the patient, reviewed the History & Physical and in the interval since the performance of the History & Physical I have noted the following changes of clinical significance: no changes noted. Patient is an 83 year old male with past medical history of HTN, HLD, ischemic cardiomyopathy, history [place], chronic HFrEF, s/p defibrillator, h/o NSVT, history LV mural thrombus, h/o GI bleed on Coumadin, duodenitis, DM II, hypothyroidism, GERD, current DVT and PE anticoagulated on Coumadin who presented to ER for rectal bleeding. Dr. Young had concerns for malignancy and recommended EGD and Colonoscopy. He finished prep and stools have been clear. his heparin was stopped at 840 am. he denies any further bleeding. - proceed with EGD and colonoscopy today. Both procedures, the alternatives including no work up or treatment, risks and benefits were discussed. Among the risks discussed included cardiorespiratory suppression, aspiration, bleeding, failure to diagnose cancer or other pathology and perforation requiring surgery. In addition we discussed that if specimens are obtained it may be deemed beneficial to send these for genetic/DNA testing. The patient claimed to understand all that was discussed, consented to all and a ll of his questions were answered.
[2023-12-07 10:53] LABS: Hematocrit (blood only) 39.6 % (42.0-52.0); Hemoglobin 13.1 g/dl (14.0-18.0)
[2023-12-07 11:07] LABS: ANTI-Xa, UFH(UnfractionatedHep 0.47 IU/ml (0.3-0.7)
--- NOTE | 2023-12-07 13:27 | Anesthesiology Consultation ---
Date of Service December 07, 2023 Assessment & Plan Chart Review Chart Review: charge entry initiated History Surgery Operation Date: 12/06/23 16:30 Proposed Procedures p Colonoscopy EGD Nriali Campoverde MD Operation Date: 12/07/23 16:30 Proposed Procedures p Colonoscopy EGD Nirali Campoverde MD Height/Weight Height: 5 ft 10 in Weight: 76.2 kg Allergies Allergy/AdvReac Type Severity Reaction Status Date / Time No Known Allergies Allergy Verified 12/05/23 18:07 Medications Home Medications Medication Instructions Recorded Confirmed Last Taken aspirin 81 mg tablet,delayed 81 mg PO QAM 01/14/20 12/05/23 12/05/23 release (Amanda Low Dose Aspirin) cyanocobalamin (vitamin B-12) 1,000 mcg PO QAM 01/14/20 12/05/23 12/05/23 1,000 mcg capsule isosorbide mononitrate 30 mg 30 mg PO QAM 01/14/20 12/05/23 12/05/23 tablet,extended release 24 hr metformin 1,000 mg tablet 1,000 mg PO BID 01/14/20 12/05/23 12/05/23 nitroglycerin 0.4 mg sublingual 0.4 mg sublingual UD PRN Chest Pain 01/14/20 12/05/23 Unknown tablet (Nitrostat) atorvastatin 40 mg tablet 40 mg PO QAM 06/22/21 12/05/23 12/05/23 albuterol sulfate 90 mcg/actuation 2 puff inhalation Q4H PRN 11/28/23 12/05/23 Unknown aerosol inhaler COUGH/SHORT OF BREATH/WHEEZING clobetasol 0.05 % topical ointment 1 applic topical BID PRN Skin 11/28/23 12/05/23 Unknown Irritation ferrous sulfate 27 mg iron tablet 27 mg PO DAILY 11/28/23 12/05/23 12/05/23 levothyroxine 112 mcg tablet 112 mcg PO DAILYBB 11/28/23 12/05/23 12/05/23 metoprolol succinate 100 mg 100 mg PO QAM 11/28/23 12/05/23 12/05/23 tablet,extended release 24 hr pantoprazole 40 mg tablet,delayed 40 mg PO BID 11/28/23 12/05/23 12/05/23 release ergocalciferol (vitamin D2) 1,250 1,250 mcg PO Q7D@0900 #12 caps 11/30/23 12/05/23 11/28/23 mcg (50,000 unit) capsule warfarin 1 mg tablet 1 mg PO DAILY #30 tabs 12/02/23 12/05/23 12/03/23 Active Medications Generic Name Dose Route Start Last Admin Trade Name [place] PRN Reason Stop Dose Admin Atorvastatin Calcium 40 mg 12/06/23 09:00 12/07/23 08:50 Atorvastatin 40 Mg Tab PO 01/05/24 08:59 40 mg QAM JOVANY Administration Cyanocobalamin 1,000 mcg 12/06/23 09:00 12/07/23 08:49 Cyanocobalamin (B-12) 500 Mcg Tablet PO 01/05/24 08:59 1,000 mcg QAM JOVANY Administration Heparin Sodium/Dextrose 25,000 units in 500 mls @ 0 mls/hr 12/05/23 18:15 12/07/23 09:59 Heparin Sodium/Dextrose IV 01/04/24 18:14 Not Given .Q0M JOVANY Protocol 0 UNITS/HR Insulin Aspart 0 units 12/05/23 21:00 12/07/23 11:40 Insulin Aspart Per Unit Charge SC 01/04/24 20:59 Not Given ACHS JOVANY Isosorbide Mononitrate 30 mg 12/06/23 09:00 12/07/23 08:50 Isosorbide Imperial Extended Rel 30 Mg Tabcr PO 01/05/24 08:59 30 mg QAM JOVANY Administration Levothyroxine Sodium 112 mcg 12/06/23 06:30 12/07/23 05:38 Levothyroxine Sodium 112 Mcg Tablet PO 01/05/24 06:29 112 mcg DAILYBB JOVANY Administration Metoprolol Succinate 100 mg 12/06/23 09:00 12/07/23 10:00 Metoprolol Succ 50mg Ext Rel Tab PO 01/05/24 08:59 Not Given QAM JOVANY Pantoprazole Sodium 40 mg 12/05/23 21:00 12/07/23 08:49 Pantoprazole 40 Mg Tab PO 01/04/24 20:59 40 mg BID JOVANY Administration Past Medical History Medical History History of blood transfusion last 06/23/21 @ [facility] Poor historian History of left heart catheterization 1991 [place], NO STENTS [address] [facility], UNSURE OF STENTS Osteoarthritis History of GI bleed Hypertension Past Family History Family History Other No family history of adverse response to anesthesia Past Surgical History Surgical History History of implantable cardioverter-defibrillator (ICD) placement (~03/23/20) meditronic History of left shoulder replacement History of esophagogastroduodenoscopy (EGD) last 06/24/21 @ [facility] History of carpal tunnel release of both wrists History of colonoscopy 5 YEARS AGO History of cataract surgery BOTH EYES History of tooth extraction History of adenoidectomy History of tonsillectomy Social History Smoking Status: Former smoker Do You Dip or Chew Tobacco: No Hx Alcohol Use: Yes Alcohol type: beer and wine alcohol intake frequency: holidays/special occasions only Hx Substance Use: No substance use type: does not use Physical Exam Vital Signs Last Vital Signs Temp 97.3 F L 12/07/23 11:37 Pulse 95 H 12/07/23 11:37 Resp 20 12/07/23 11:37 BP 104/53 L 12/07/23 11:37 Pulse Ox 98 12/07/23 11:37 O2 Del Method Room Air 12/07/23 11:37 O2 Flow Rate 0 12/05/23 16:19 Testing Laboratory Results 12/07/23 07:27 12/07/23 07:27 PT 15.8 Seconds (9.0-12.0) H 12/05/23 16:25 INR 1.5 (0.9-1.1) H 12/05/23 16:25 APTT 32 Seconds (21-31) H 12/05/23 16:25 Hemoglobin A1c 5.9 % (4.5-5.6) H 12/06/23 07:32 Blood Type B Negative 12/05/23 19:25 Antibody Screen NEGATIVE 12/05/23 19:25 12/07/23 12/07/23 12/07/23 11:35 07: 06:18 POC Glucose 77 89 104 H Electrocardiogram Date: 12/05/23 Atrial-paced rhythm with occasional supraventricular complexes and with frequentPremature ventricular complexes, rate 68 bpm Anterolateral infarct (cited on or before 23-MAR-2020) Abnormal ECG When compared with ECG of 28-NOV-2023 15:59, Premature ventricular complexes are now Present Right bundle branch block is no longer Present Criteria for Inferior infarct are no longer Present Confirmed by Herbert Galvan ([id number]) on 12/05/2023 6:35:08 PM Chest X-Ray Date: 12/05/23 IMPRESSION: 1. Cardiomegaly and AICD with pulmonary vascular congestion. 2. Emphysema. 3. There are developing airspace opacities in the right upper lobe. This could represent a mild pneumonitis or possibly pulmonary infarct given the recent pulmonary embolus. Correlate clinically. Radiographic follow-up to resolution is recommended. Echocardiogram Date: 11/29/23 There is a large non-laminated globular LV apical thrombus LV systolic function is severely reduced EF 25-30% There is an extensive area of myocardial thinning and akinesis involving the anterior, anteroseptal, inferoseptal, inferior and apical monterroso RV is normal size RV systolic function is normal Mild TR Estimated systolic pulmonary pressure is 41 mmHg
[2023-12-07] MEDS: SODIUM CHLORIDE 0.9% 500 ML IV SCH (14:34)
--- NOTE | 2023-12-07 15:11 | Hospitalist Progress Note ---
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 No rectal bleeding reported on the day of arrival. He is being managed for the following: GI bleed: Presented with complaint of blood in stool [see above] Admitting hemoglobin of 12, PT/INR of 1.5. Baseline hemoglobin around 12. Per patient, no further blood or black in the stool. Coumadin and aspirin on hold, patient on heparin drip Hemoglobin stable around 12 Continue home PPI. Follow labs closely to monitor H&H. GI consult, plan for EGD and colon scope. Blood transfusion for symptomatic anemia or Hemoglobin level less than 8. Diet once cleared per GI. Subtherapeutic anticoagulation: Pulmonary embolism: DVT (deep venous thrombosis): Ventricular mural thrombus: Recent hospitalization 11/28/2023-12/02/2023 for ventricular mural thrombus, extensive left leg DVT, submassive PE and is anticoagulated on Coumadin. No hypoxia. Denies CP, SOB or cough. INR: 1.5 at presentation. Hold Coumadin with rectal bleeding On Heparin IV, monitor closely Ischemic cardiomyopathy: ICD (implantable cardioverter-defibrillator) in place: Chronic HFrEF (heart failure with reduced ejection fraction): 11/29/2023 echo: EF: 25-30%, large left ventricular apical thrombus, extensive area of myocardial thinning and akinesis anterior, anterior septal, inferior septal, inferior and apical monterroso, grade 1 diastolic dysfunction, no pericardial effusion Device was interrogated by ER at admission and reported no abnormal rhythms. Holding aspirin with rectal bleeding Continue metoprolol succinate, isosorbide, atorvastatin History of supraventricular tachycardia: History NSVT. Continue metoprolol succinate Diabetes mellitus, type 2: A1c: 5.7 on 08/16/23. Hold home metformin. A1c 5.9 this admission. Continue with sliding scale. Hyperlipidemia: Continue home atorvastatin Hypothyroidism: Continue home levothyroxine Vitamin deficiency: Continue vitamin D DVT prophylaxis: Patient on heparin drip for recent DVT/PE history Full code Admission and Anticipated Discharge Date Admission Date: December 05, 2023 Subjective Patient was seen and examined at bedside. Patient was lying in bed, on room air, NAD, resting comfortably. Patient reports having blood in the stool a day before arrival. He states further BMs are brownish with no blood or black. He denies any febrile illness or headache or dizziness or chest pain or lightheadedness or abdominal pain. Physical Exam Physical Exam: General: no distress, WDWN, pleasant elderly male Head: normocephalic, atraumatic Eyes: onjunctiva non-injected, anicteric ENT: hard of hearing, normal inspection external ears, nose, mucous membranes moist Neck: supple, trachea midline Lungs: no respiratory distress, CTA, no wheezing/rales noted CV: RRR, no JVD. +defibrillator left upper chest wall without erythema Abd: normal BS, soft, non-tender Ext: no cyanosis, +Left greater than right leg swelling Neuro: A&O x 3, no focal deficits noted, normal affect Skin: warm, dry Results & Data Results & Data Vital Signs (Past 12 Hours) Vital Signs Temp Pulse Pulse Resp BP BP Pulse Ox 12/07/23 14:11 36.2 C L 67 18 120/62 97 12/07/23 11:37 36.3 C L 95 H 20 104/53 L 98 12/07/23 09:15 67 91/62 L 12/07/23 07:26 36.6 C 70 19 99/59 L 93 O2 Del Method 12/07/23 14:11 Room Air 12/07/23 11:37 Room Air 12/07/23 09:15 12/07/23 07:26 Room Air
--- NOTE | 2023-12-07 15:21 | GI REPORT ---
[facility] Patient: MNAJINDER LEÓN : 1940 Sex at : Male Age: 83 Years Procedure: Upper GI endoscopy Date: 12/07/2023 Attending Physician: Dov Campoverde MD Referring MD: AKASH Lynne; Yen Vega Md Indications: - Recent gastrointestinal bleeding Medications: - See the Anesthesia note for documentation of the administered medications Complications: - No immediate complications. Estimated Blood Loss: - Estimated blood loss was minimal. Procedure: - ASA Grade Assessment: IV - A patient with severe systemic disease that is a constant threat to life. - The egd scope was introduced through the mouth and advanced to the second part of the duodenum. - The upper GI endoscopy was accomplished without difficulty. - The patient tolerated the procedure well. Findings: - The examined esophagus was normal. - Diffuse moderate inflammation characterized by erythema and granularity was found in the entire examined stomach. Biopsies were taken with a cold forceps for histology. Biopsies were taken with a cold forceps for Helicobacter pylori testing. - The examined duodenum was normal. Impression: - Normal esophagus. - Gastritis, characterized by erythema and granularity. Biopsied. - Normal examined duodenum. Recommendation: - Await pathology results. Procedure Code(s): - 68650, Esophagogastroduodenoscopy, flexible, transoral; with biopsy, single or multiple Diagnosis Code(s): - K92.2, Gastrointestinal hemorrhage, unspecified - K29.70, Gastritis, unspecified, without bleeding CPT(R) - 2023 copyright [employer]. All Rights Reserved. The CPT codes, CCI edits and ICD codes generated are intended as suggestions and were generated based on input data. These codes are preliminary and upon computer language coder review may be revised to meet current compliance and payer requirements. The provider is responsible for the final determination of appropriate codes, and modifiers. Dov Campoverde MD This document has been electronically signed. Note Initiated:12/07/2023 Note Completed:12/07/2023 3:20 PM Dov Campoverde This document has been electronically signed. Note Amended:12/07/2023 3:25 PM \\[email or web address]\[id number]
--- NOTE | 2023-12-07 15:24 | Anesthesiology Progress Note ---
Date of Service December 07, 2023 Anesthesia Post Procedure Vital Signs Vital Signs: Temp Pulse Pulse Pulse Resp BP BP 12/07/23 14:11 36.2 C L 67 18 120/62 12/07/23 11:37 36.3 C L 95 H 20 104/53 L 12/07/23 09:15 67 91/62 L 12/07/23 07:26 36.6 C 70 19 99/59 L 12/07/23 02:55 36.4 C L 60 18 114/69 12/07/23 01:24 36.4 C L 12/06/23 23:54 69 18 100/68 12/06/23 23:00 67 12/06/23 19:30 12/06/23 19:16 36.3 C L 57 L 18 122/68 12/06/23 16:07 36.5 C 51 L 18 100/62 Pulse Ox O2 Del Method 12/07/23 14:11 97 Room Air 12/07/23 11:37 98 Room Air 12/07/23 09:15 12/07/23 07:26 93 Room Air 12/07/23 02:55 97 Room Air 12/07/23 01:24 12/06/23 23:54 98 Room Air 12/06/23 23:00 12/06/23 19:30 Room Air 12/06/23 19:16 97 Room Air 12/06/23 16:07 91 Room Air Transfer of Care Handoff Completed per policy Notes Mental Status: alert / awake / arousable and participated in evaluation Patient Amnestic to Procedure: Yes Nausea / Vomiting: adequately controlled Pain: adequately controlled Airway Patency, RR, SpO2: stable & adequate BP & HR: stable & adequate Hydration State: stable & adequate Anesthetic Complications: no major complications apparent and Pt Satisfied with anesthetic care
--- NOTE | 2023-12-07 15:25 | GI REPORT ---
[facility] Patient: MANJINDER LEÓN : 1940 Sex at : Male Age: 83 Years Procedure: Colonoscopy Date: 12/07/2023 Attending Physician: Dov Campoverde MD Referring MD: AKASH Lynne; Yen Vega Md Indications: - Evaluation of unexplained GI bleeding presenting with Hematochezia Medications: - See the Anesthesia note for documentation of the administered medications Complications: - No immediate complications. Estimated Blood Loss: - Estimated blood loss was minimal. Procedure: - ASA Grade Assessment: IV - A patient with severe systemic disease that is a constant threat to life. - The adult colonoscope was introduced through the anus and advanced to the terminal ileum, with identification of the appendiceal orifice and ileocecal valve. - The colonoscopy was performed without difficulty. - The quality of the bowel preparation was good. Findings: - A diffuse area of mildly plaque covered mucosa was found in the sigmoid colon and in the descending colon. Biopsies were taken with a cold forceps for histology. Estimated blood loss was minimal. Verification of patient identification for the specimen was done by the physician, nurse and soldering technician. Impression: - Plaque covered mucosa in the sigmoid colon and in the descending colon. Biopsied. - The exam was otherwise normal to the cecum. - The examined portion of the ileum was normal. - Plaques could be residual of medication Recommendation: - Return patient to [facility] for continued care. OK to resume anticoagulation if needed Procedure Code(s): - 34756, Colonoscopy, flexible; with biopsy, single or multiple Diagnosis Code(s): - K92.1, Melena (includes Hematochezia) - K63.89, Other specified diseases of intestine CPT(R) - 2023 copyright [employer]. All Rights Reserved. The CPT codes, CCI edits and ICD codes generated are intended as suggestions and were generated based on input data. These codes are preliminary and upon apprentice lineman third step review may be revised to meet current compliance and payer requirements. The provider is responsible for the final determination of appropriate codes, and modifiers. Dov Campoverde MD This document has been electronically signed. Note Initiated:12/07/2023 Note Completed:12/07/2023 3:24 PM \\[email or web address]\Results\[email or web address]\[id number]
[2023-12-07] MEDS: PROPOFOL IV EMULSION 10 MG/ML 20 ML VIAL IV ONE (15:53)
[2023-12-07] MEDS: LIDOCAINE 2% 2 ML VIAL/AMP(20MG/ML) INFIL ONE (15:53)
[2023-12-07] MEDS: ONDANSETRON INJ 2 MG/ML 2 ML VIAL ONE (15:54)
[2023-12-07] MEDS: ETOMIDATE 2 MG/ML 20 ML VIAL IV ONE (15:54)
[2023-12-07] MEDS: ePHEDrine sulfate 50 MG/5 ML SYR ONE (16:55)
[2023-12-07] MEDS: MAGNESIUM SULFATE / D5W 1 GM/100 ML BAG IV SCH (17:15)
[2023-12-07] MEDS: WARFARIN SOD 1 MG TAB PO SCH (18:16)
[2023-12-07 23:53] LABS: ANTI-Xa, UFH(UnfractionatedHep 0.64 IU/ml (0.3-0.7)
[2023-12-08 07:12] LABS: Hematocrit (blood only) 37.4 % (42.0-52.0); Hemoglobin 12.6 g/dl (14.0-18.0); Mean Corpuscular Hemoglobin 31.7 pg (25.0-34.0); Mean Corpuscular Hgb Conc 33.7 g/dL (32.0-36.0); Mean Platelet Volume 9.8 fL (9.4-12.4); Platelet Count 296 K/uL (130-400); RDW Coefficient of Variation 14.6 % (11.5-14.5); RDW Standard Deviation 50.5 fL (36.4-46.3); Red Blood Count 3.98 M/uL (4.70-6.10); White Blood Count 5.37 K/ul (4.8-10.8)
[2023-12-08 07:36] LABS: BUN Creatinine Ratio 9.9 (10-20); Calcium 7.2 mg/dl (8.6-10.3); Est GFR (African American) 71.3 ml/min; Est GFR (Non-African American) 61.5 ml/min; Magnesium 1.8 mg/dl (1.7-2.4); Potassium 3.7 mmol/L (3.5-5.1)
[2023-12-08 07:43] LABS: INR 1.4 (0.9-1.1); Prothrombin Time 14.6 Seconds (9.0-12.0)
[2023-12-08 07:48] LABS: ANTI-Xa, UFH(UnfractionatedHep 0.84 IU/ml (0.3-0.7)
--- NOTE | 2023-12-08 11:17 | Gastroenterology Progress Note ---
Date of Service December 08, 2023 Assessment & Plan (1) GI bleed: Plan: Anemia. No distinct source found on EGD or colonoscopy. As previously recommended: OP SB Video Capsule Endoscopy OK from GI standpoint to resume ant icoagulation as needed. Also OK from GI standpoint to advance diet to his usual OP diet. Will need OP GI follow up for SB Video Capsule endoscopy. IP GI Service will sign off. Admission and Anticipated Discharge Date Admission Date: December 05, 2023 Subjective Patient feels well. No vomiting. Physical Exam Constitutional: Afebrile VSS Respiratory: Lungs: Clear anteriorly Cardiovascular: Heart: Reg Gastrointestinal (Abdomen): Abd: NL BS, soft, nontender Results & Data Results & Data Vital Signs (Past 12 Hours) Vital Signs Temp Pulse Pulse Resp BP Pulse Ox O2 Del Method 12/08/23 10:37 36.8 C 76 21 101/66 90 Room Air 12/08/23 07:31 37.0 C 99 H 20 109/75 96 Room Air 12/08/23 04:12 36.4 C L 87 17 L 17 108/68 95 Room Air 12/07/23 23:40 36.5 C 82 17 105/63 94 Room Air PG Care Time/CCT Total # of Minutes Spent Total Time Spent with Patient: Total time spent is greater than 50% in coordination of care (as documented) at patient's floor/unit and/or counseling patient: Coding Level of Care Code 46635 SUB INP/OBS CARE 1/25MIN Diagnoses GI bleed K92.2
--- NOTE | 2023-12-08 14:49 | Hospitalist Progress Note ---
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 No rectal bleeding reported on the day of arrival. He is being managed for the following: GI bleed: Presented with complaint of blood in stool [see above] Admitting hemoglobin of 12, PT/INR of 1.5. Baseline hemoglobin around 12. Per patient, no further blood or black in the stool. S/p EGD and C-scope on 12/06 - no distinct source, biopsies taken. Patient on heparin drip, coumadin started 12/06, follow PT/INR Hemoglobin stable around 12 Continue home PPI. Follow labs closely to monitor H&H. GI evaled, OP GI follow up for SB Video Capsule endoscopy. Subtherapeutic anticoagulation: Pulmonary embolism: DVT (deep venous thrombosis): Ventricular mural thrombus: Recent hospitalization 11/28/2023-12/02/2023 for ventricular mural thrombus, extensive left leg DVT, submassive PE and is anticoagulated on Coumadin. No hypoxia. Denies CP, SOB or cough. INR: 1.5 at presentation. Anticoagulation being managed as above. Ischemic cardiomyopathy: ICD (implantable cardioverter-defibrillator) in place: Chronic HFrEF (heart failure with reduced ejection fraction): 11/29/2023 echo: EF: 25-30%, large left ventricular apical thrombus, extensive area of myocardial thinning and akinesis anterior, anterior septal, inferior septal, inferior and apical monterroso, grade 1 diastolic dysfunction, no pericardial effusion Device was interrogated by ER at admission and reported no abnormal rhythms. Holding aspirin with rectal bleeding Continue metoprolol succinate, isosorbide, atorvastatin History of supraventricular tachycardia: History NSVT. Continue metoprolol succinate Diabetes mellitus, type 2: A1c: 5.7 on 08/16/23. Hold home metformin. A1c 5.9 this admission. Continue with sliding scale. Hyperlipidemia: Continue home atorvastatin Hypothyroidism: Continue home levothyroxine Vitamin deficiency: Continue vitamin D DVT prophylaxis: Patient on heparin drip for recent DVT/PE history, Coumadin restarted. Full code Admission and Anticipated Discharge Date Admission Date: December 05, 2023 Subjective Patient was seen and examined at bedside. Patient was sitting up in chair, on room air, NAD, resting comfortably. No further blood in stool. Denies N, V. Reports feeling better. He denies any febrile illness or headache or dizziness or chest pain or lightheadedness or abdominal pain. Physical Exam Physical Exam: General: no distress, WDWN, pleasant elderly male Head: normocephalic, atraumatic Eyes: onjunctiva non-injected, anicteric ENT: hard of hearing, normal inspection external ears, nose, mucous membranes moist Neck: supple, trachea midline Lungs: no respiratory distress, CTA, no wheezing/rales noted CV: RRR, no JVD. +defibrillator left upper chest wall without erythema Abd: normal BS, soft, non-tender Ext: no cyanosis, +Left greater than right leg swelling Neuro: A&O x 3, no focal deficits noted, normal affect Skin: warm, dry Results & Data Results & Data Vital Signs (Past 12 Hours) Vital Signs Temp Pulse Pulse Resp BP Pulse Ox O2 Del Method 12/08/23 10:37 36.8 C 76 21 101/66 90 Room Air 12/08/23 07:31 37.0 C 99 H 20 109/75 96 Room Air 12/08/23 04:12 36.4 C L 87 17 L 17 108/68 95 Room Air
[2023-12-09] MEDS ORDERED: Nursing to Pharmacy Communication SCH (07:00)
[2023-12-09 07:23] LABS: Hematocrit (blood only) 37.4 % (42.0-52.0); Hemoglobin 12.4 g/dl (14.0-18.0); Mean Corpuscular Hemoglobin 31.3 pg (25.0-34.0); Mean Corpuscular Hgb Conc 33.2 g/dL (32.0-36.0); Mean Corpuscular Volume 94.4 fL (80.0-100.0); Mean Platelet Volume 9.8 fL (9.4-12.4); Platelet Count 295 K/uL (130-400); RDW Coefficient of Variation 15.1 % (11.5-14.5); RDW Standard Deviation 52.2 fL (36.4-46.3); Red Blood Count 3.96 M/uL (4.70-6.10); White Blood Count 4.73 K/ul (4.8-10.8)
[2023-12-09 07:41] LABS: BUN Creatinine Ratio 9.2 (10-20); Calcium 7.2 mg/dl (8.6-10.3); Est GFR (African American) 64.9 ml/min; Magnesium 1.8 mg/dl (1.7-2.4)
[2023-12-09 07:52] LABS: INR 1.4 (0.9-1.1); Prothrombin Time 15.2 Seconds (9.0-12.0)
[2023-12-09 07:55] LABS: ANTI-Xa, UFH(UnfractionatedHep 0.86 IU/ml (0.3-0.7)
[2023-12-09] MEDS: WARFARIN SOD 1 MG TAB PO STA (08:47)
--- NOTE | 2023-12-09 15:27 | Hospitalist Progress Note ---
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 No rectal bleeding reported on the day of arrival. He is being managed for the following: GI bleed: Presented with complaint of blood in stool [see above] Admitting hemoglobin of 12, PT/INR of 1.5. Baseline hemoglobin around 12. Per patient, no further blood or black in the stool. S/p EGD and C-scope on 12/06 - no distinct source, biopsies taken. Patient on heparin drip, coumadin started 12/06, follow PT/INR. To 1 mg additional dose today. Hemoglobin stable around 12 Continue home PPI. Follow labs closely to monitor H&H. GI evaled, OP GI follow up for SB Video Capsule endoscopy. Subtherapeutic anticoagulation: Pulmonary embolism: DVT (deep venous thrombosis): Ventricular mural thrombus: Recent hospitalization 11/28/2023-12/02/2023 for ventricular mural thrombus, extensive left leg DVT, submassive PE and is anticoagulated on Coumadin. No hypoxia. Denies CP, SOB or cough. INR: 1.5 at presentation. Anticoagulation being managed as above. Ischemic cardiomyopathy: ICD (implantable cardioverter-defibrillator) in place: Chronic HFrEF (heart failure with reduced ejection fraction): 11/29/2023 echo: EF: 25-30%, large left ventricular apical thrombus, extensive area of myocardial thinning and akinesis anterior, anterior septal, inferior septal, inferior and apical monterroso, grade 1 diastolic dysfunction, no pericardial effusion Device was interrogated by ER at admission and reported no abnormal rhythms. Holding aspirin with rectal bleeding Continue metoprolol succinate, isosorbide, atorvastatin History of supraventricular tachycardia: History NSVT. Continue metoprolol succinate Diabetes mellitus, type 2: A1c: 5.7 on 08/16/23. Hold home metformin. A1c 5.9 this admission. Continue with sliding scale. Hyperlipidemia: Continue home atorvastatin Hypothyroidism: Continue home levothyroxine Vitamin deficiency: Continue vitamin D DVT prophylaxis: Patient on heparin drip for recent DVT/PE history, Coumadin restarted. Full code Admission and Anticipated Discharge Date Admission Date: December 05, 2023 Subjective Patient was seen and examined at bedside. Patient was Lying in bed, on room air, NAD, resting comfortably. No further blood in stool. Denies N, V. Reports feeling better. He denies any febrile illness or headache or dizziness or chest pain or lightheadedness or abdominal pain. Physical Exam Physical Exam: General: no distress, WDWN, pleasant elderly male Head: normocephalic, atraumatic Eyes: onjunctiva non-injected, anicteric ENT: hard of hearing, normal inspection external ears, nose, mucous membranes moist Neck: supple, trachea midline Lungs: no respiratory distress, CTA, no wheezing/rales noted CV: RRR, no JVD. +defibrillator left upper chest wall without erythema Abd: normal BS, soft, non-tender Ext: no cyanosis, +Left greater than right leg swelling Neuro: A&O x 3, no focal deficits noted, normal affect Skin: warm, dry Results & Data Results & Data Vital Signs (Past 12 Hours) Vital Signs Temp Pulse Resp BP Pulse Ox O2 Del Method 12/09/23 10:59 36.6 C 50 L 20 104/63 90 Room Air 12/09/23 07:23 36.4 C L 53 L 20 101/62 93 Room Air 12/09/23 04:12 36.5 C 61 17 94/58 L 95 Room Air
[2023-12-09 16:52] LABS: ANTI-Xa, UFH(UnfractionatedHep 0.52 IU/ml (0.3-0.7)
[2023-12-10 07:20] LABS: Hemoglobin 12.3 g/dl (14.0-18.0); Mean Corpuscular Hemoglobin 31.5 pg (25.0-34.0); Mean Corpuscular Hgb Conc 33.2 g/dL (32.0-36.0); Mean Corpuscular Volume 94.9 fL (80.0-100.0); Mean Platelet Volume 10.2 fL (9.4-12.4); Platelet Count 257 K/uL (130-400); RDW Coefficient of Variation 14.9 % (11.5-14.5); RDW Standard Deviation 51.6 fL (36.4-46.3); White Blood Count 4.65 K/ul (4.8-10.8)
[2023-12-10 07:43] LABS: ANTI-Xa, UFH(UnfractionatedHep 0.47 IU/ml (0.3-0.7); Calcium 7.2 mg/dl (8.6-10.3); INR 1.6 (0.9-1.1); Potassium 4.1 mmol/L (3.5-5.1); Prothrombin Time 16.2 Seconds (9.0-12.0)
[2023-12-10 07:49] LABS: BUN Creatinine Ratio 9.6 (10-20); Creatinine Clr Calc Pharmacy 51.6 ml/min; Est GFR (Non-African American) 59.6 ml/min
--- NOTE | 2023-12-10 11:54 | Hospitalist Progress Note ---
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 No rectal bleeding reported on the day of arrival. He is being managed for the following: GI bleed: Presented with complaint of blood in stool [see above] Admitting hemoglobin of 12, PT/INR of 1.5. Baseline hemoglobin around 12. Per patient, no further blood or black in the stool. S/p EGD and C-scope on 12/06 - no distinct source, biopsies taken. Patient on heparin drip, coumadin started 12/06, follow PT/INR. Hemoglobin stable around 12 Continue home PPI. Follow labs closely to monitor H&H. GI evaled, OP GI follow up for SB Video Capsule endoscopy. Subtherapeutic anticoagulation: Pulmonary embolism: DVT (deep venous thrombosis): Ventricular mural thrombus: Recent hospitalization 11/28/2023-12/02/2023 for ventricular mural thrombus, extensive left leg DVT, submassive PE and is anticoagulated on Coumadin. No hypoxia. Denies CP, SOB or cough. INR: 1.5 at presentation; today 12/09 INR 1.6; continue Heparin infusion. Give Coumadin 1 mg now and 1 mg at 1600 today. Hopeful to be able to DC in next 1-2 days. Ischemic cardiomyopathy: ICD (implantable cardioverter-defibrillator) in place: Chronic HFrEF (heart failure with reduced ejection fraction): 11/29/2023 echo: EF: 25-30%, large left ventricular apical thrombus, extensive area of myocardial thinning and akinesis anterior, anterior septal, inferior septal, inferior and apical monterroso, grade 1 diastolic dysfunction, no pericardial effusion Device was interrogated by ER at admission and reported no abnormal rhythms. Holding aspirin with rectal bleeding Continue metoprolol succinate, isosorbide, atorvastatin History of supraventricular tachycardia: History NSVT. Continue metoprolol succinate Diabetes mellitus, type 2: A1c: 5.7 on 08/16/23. Hold home metformin. A1c 5.9 this admission. Continue with sliding scale. Hyperlipidemia: Continue home atorvastatin Hypothyroidism: Continue home levothyroxine Vitamin deficiency: Continue vitamin D DVT prophylaxis: Patient on heparin drip for recent DVT/PE history, Coumadin restarted. INR 1.6 Full code I spent a total of 61 minutes coordinating, documenting, and providing care for this patient excluding time spent in the performance of separately billed services. All of the aforementioned completed while collaborating with the assigned attending physician for a full treatment plan. Please see their adden dum for further details. Admission and Anticipated Discharge Date Admission Date: December 05, 2023 Supervising Physician Co-Signing Physician Notes PT/INR not yet therapeutic, c/w hep drip. additoinal dose of coumadin in addition to shanika dose. pt/inr in AM. likeyl dc in 1-2 days. no blood in stool per pt. Spent additional 15 min in addition to EDUCATION AND DEVELOPMENT MANAGER's time. I have seen and examined the patient and have discussed the case with the provider above. I agree with the assessment and plan as stated. Subjective Pt sitting in his hospital bed in no apparent distress Denies fever, chills, ALVARES, dizziness, SOB, chest pain, hematochezia, hematuria, hemoptysis. LBM 7/14; passing flatulence Review of Systems Review of Systems: Neuro: (-) Falls, trauma, slurred speech HEENT: (-) ALVARES, dizziness, dysphagia, visual or auditory changes CV: (-) CP, palpitations, swelling Resp: (-) SOB GI: (-) appetite changes, N/V/D, bowel changes : (-) urinary changes Skin: (-) rashes Psych: (-) anxiety, depression Physical Exam Physical Exam: Neuro: AAOx4, PERRLA, no aphagia, memory changes, CNII-XII grossly intact HEENT: head normocephalic, moist mucus membranes CV: S1/S2, (-) M/G/R, (+) edema; improving BL LE, cap refill < 3 seconds Resp: Lungs CTA in all christopher. On RA GI: Abdomen S/NT/ND, Ax4 bowel sounds, (-) CVA tenderness Musculoskeletal: 5/5 B/L UE strength, 5/5 B/L LE strength. No gait disturbance Skin: (-) rashes , (-) erythema. Psych: euthymic mood Results & Data Results & Data Vital Signs (Past 12 Hours) Vital Signs Temp Pulse Pulse Resp BP Pulse Ox O2 Del Method 12/10/23 07:31 36.6 C 56 L 19 103/69 97 Room Air 12/10/23 04:25 36.5 C 65 16 107/62 94 Room Air 12/10/23 02:01 60 12/09/23 23:47 36.4 C L 62 17 112/68 96 Room Air Laboratory Results Short CBC 12/10/23 Range/Units 06:42 WBC 4.65 L (4.8-10.8) K/ul Hgb 12.3 L (14.0-18.0) g/dl Hct 37.0 L (42.0-52.0) % Plt Count 257 (130-400) K/uL BMP 12/10/23 06:42 Sodium 135 L Potassium 4.1 Chloride 105 Carbon Dioxide 28 BUN 11 Creatinine 1.14 Glucose 92 Calcium 7.2 L
[2023-12-10] MEDS: WARFARIN SOD 1 MG TAB PO STA (13:35)
[2023-12-10] MEDS ORDERED: WARFARIN SOD 1 MG TAB PO SCH (16:00)
[2023-12-11 06:06] LABS: BUN Creatinine Ratio 9.8 (10-20); Calcium 7.3 mg/dl (8.6-10.3); Creatinine Clr Calc Pharmacy 47.8 ml/min; Est GFR (Non-African American) 54.3 ml/min; Potassium 4.2 mmol/L (3.5-5.1)
[2023-12-11 06:11] LABS: Hematocrit (blood only) 36.9 % (42.0-52.0); Hemoglobin 12.4 g/dl (14.0-18.0); Mean Corpuscular Hemoglobin 31.8 pg (25.0-34.0); Mean Corpuscular Hgb Conc 33.6 g/dL (32.0-36.0); Mean Corpuscular Volume 94.6 fL (80.0-100.0); Mean Platelet Volume 10.3 fL (9.4-12.4); Platelet Count 253 K/uL (130-400); RDW Coefficient of Variation 15.4 % (11.5-14.5); RDW Standard Deviation 53.1 fL (36.4-46.3); White Blood Count 4.07 K/ul (4.8-10.8)
[2023-12-11 06:17] LABS: ANTI-Xa, UFH(UnfractionatedHep 0.58 IU/ml (0.3-0.7); INR 1.9 (0.9-1.1); Prothrombin Time 19.2 Seconds (9.0-12.0)
--- NOTE | 2023-12-11 10:47 | Discharge Summary ---
Date of Service December 11, 2023 Admission HPI Per Admitting Provider Patient is 83 year old male with PMH HTN, HLD, ischemic cardiomyopathy, history [place], chronic HFrEF, s/p defibrillator, h/o NSVT, history LV mural thrombus, h/o GI bleed on Coumadin, duodenitis, DM II, hypothyroidism, GERD, current DVT and PE anticoagulated on Coumadin, and others listed below presented to ER at referred of outpatient nephrology today for rectal bleeding. Recent hospitalization 11/28/2023-12/02/2023 for ventricular mural thrombus, extensive left leg DVT, submassive PE. Anticoagulation was discussed as patient with history LV mural thrombus with GI bleeding on Coumadin in past. Cardiology consulted wh o felt warfarin was superior option given his LV thrombus. Patient was anticoagulated on warfarin with therapeutic INR on day of discharge 12/02/2023 per note review. Patient states yesterday he had 4 episodes of formed dark red bloody stool. Denies any abdominal pain. Seen at PCP office 12/04/23 for rectal bleeding and INR was 2.0. Patient states hasn't had Coumadin for a day. Seen at outpatient nephrology today and referred to ER for further evaluation due to reported GI bleeding and complex medical history. Patient states today had couple loose stools without any noted blood. He states BLE edema since hospital admission that he feels is the same. Denies fever/chills, diaphoresis, N/V, constipation, ALVARES, dizziness, syncope, vision changes, neck pain, CP, SOB, orthopnea, palpitations, cough, sore throat, rhinorrhea, epistaxis, abdominal pain, paresthesias, weakness, extremity weakness, rashes, urinary symptoms. Pacer was interrogated by ER today and reported no abnormal rhythms recorded today. Admission Exam Per Admitting Provider General: no distress, WDWN, pleasant elderly male Head: normocephalic, atraumatic Eyes: onjunctiva non-injected, anicteric ENT: hard of hearing, normal inspection external ears, nose, mucous membranes moist Neck: supple, trachea midline Lungs: no respiratory distress, +rhonchi right lung, otherwise no wheezing/rales noted CV: RRR, no JVD. +defibrillator left upper chest wall without erythema Abd: normal BS, soft, non-tender Ext: no cyanosis, +Left greater than right leg swelling Neuro: A&O x 3, no focal deficits noted, normal affect Skin: warm, dry Principal Diagnosis GIB Discharge Exam Neuro: AAOx4, PERRLA, no aphagia, memory changes, CNII-XII grossly intact HEENT: head normocephalic, moist mucus membranes CV: S1/S2, (-) M/G/R, (+) edema; improving BL LE L > R, cap refill < 3 seconds Resp: Lungs CTA in all christopher. On RA GI: Abdomen S/NT/ND, Ax4 bowel sounds, (-) CVA tenderness Musculoskeletal: 5/5 B/L UE strength, 5/5 B/L LE strength. No gait disturbance Skin: (-) rashes , (-) erythema. Psych: euthymic mood Discharge Data Allergies Allergy/AdvReac Type Severity Reaction Status Date / Time No Known Allergies Allergy Verified 12/05/23 18:07 Consultations 12/05/23 18:02 ED Decision to Admit Stat 12/06/23 08:00 Consult Gastroenterology Routine Procedures Performed Operation Date: 12/07/23 16:30 Actual Procedures p EGD Biopsy Cytology - Dov Campoverde MD s Colonoscopy Biopsy Cytology - Dov Campoverde MD Hospital Course (1) GI bleed: Plan On 12/04, this 83 year old male with PMH of HTN, HLD, ischemic cardiomyopathy, [place], chronic HFrEF, s/p defibrillator, NSVT, LV mural thrombus, GI bleed on Coumadin, duodenitis, DM II, hypothyroidism, GERD, current DVT and PE anticoagulated on Coumadin and others listed below 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 No rectal bleeding reported on the day of arrival. A CXR was performed on 12/04 revealing Cardiomegaly and AICD with pulmonary vascular congestion. He was seen by GI and underwent an EGD and colonoscopy on 12/06 without any notable source of bleeding. Biopsies were taken at that time. Due to his recent hospitalization sevens 07/28 to 12/01 for pulmonary embolism and DVT we placed you on a heparin drip here and started you on oral Coumadin on 12/06. He has now reached therapeutic INR bleeding levels which will need to be closely monitored at the warfarin/Coumadin clinic upon his discharge. His INR today was 1.9 and he was given Coumadin 2 mg prior to his discharge. Discharge instructions indicate to NOT take any additional Coumadin today. He will take maintenance Coumadin 1.5 mg once daily at 4:00 PM starting tomorrow Sunday 12/10. Per Gastroenterology, he will be seen as an outpatient for a video capsule endoscopy and this appointment will be arranged by GI. I spent a total of 61 minutes coordinating, documenting, and providing care for this patient excluding time spent in the performance of separately billed services. All of the aforementioned completed while collaborating with the assigned attending physician for a full treatment plan. Please see their addendum for further details. Total Time Total Time Spent Total Time Spent (In Minutes): I spent a total of 61 minutes coordinating, documenting, and providing care for this patient excluding time spent in the performance of separately billed services. All of the aforementioned completed while collaborating with the assigned attending physician for a full treatment plan. Please see their addendum for further details. Discharge Plan Discharge Items Patient Disposition: Home - Self-Care Reason For Visit: RECTAL BLEEDING Discharge Diagnosis: Gastrointestinal bleed/PE Condition on Discharge: Good Activity: Resume your previous activity Lifting: Gradually increase as tolerated Bathing: No limitations Weightbearing: Full weightbearing Non-emergency contact: Primary Care Provider and Booth Cashier Call non-emergency contact if: you have any medication questions, your symptoms worsen, your pain is not controlled and your temperature is above 101 Follow-up/Referrals: Ja Dinero CRNP [Nurse Practitioner] - (The [facility] GI office will contact you for a follow up appointment/ further testing as recommended during your hospital stay.) Kaitlin Price MD [Primary Care Provider] - (Date & Time 12/14/2023 11:10 AM Provider Shavonne Lion, Department Family Medicine [facility] ) Diet: Carb Consistent or DM2 and Heart Healthy Addtl Attending Provider Instructions: You were admitted to the hospital on 12/05/2023 after you identified blood in your stool. You were seen by gastroenterology and underwent an EGD and colonoscopy on 12/06 without any notable source of bleeding. Biopsies were taken at that time. Due to your recent hospitalization sevens 07/28 to 12/01 for pulmonary embolism and DVT we placed you on a heparin drip here and started you on oral Coumadin on 12/06. You have now reached close to therapeutic INR bleeding levels which will need to be closely monitored at the warfarin/Coumadin clinic upon your discharge. Your INR today was 1.9. We are giving you Coumadin 2 mg by mouth today prior to you being discharged from the hospital. Do NOT take any additional Coumadin today, December 10. You will start taking Coumadin 1.5 mg once daily at 4 PM starting on 12/12/2023. You will have the following appointments scheduled upon your discharge: 1. Coumadin Clinic: You will receive a call tomorrow, 12/12/23 to schedule blood work 2. PCP: Dr. Price SundayDecember 13 @ 11:10 AM 3. GI: The [facility] GI office will contact you for a follow up appointment/ further testing including the video capsule endoscopy as recommended during your hospital stay. We thank you kindly for allowing the [facility] Hospitalist group to care for you during your hospital stay. We wish you the best in your recovery. Pending Studies at Discharge: No Stand-Alone Forms: My [facility], Smoking Cessation Medications and DC Order Prescriptions: Continued isosorbide mononitrate 30 mg Tablet Extended Release 24 Hr 30 mg PO QAM aspirin [Amanda Low Dose Aspirin] 81 mg Tablet,Delayed Release (Dr/Ec) 81 mg PO QAM metformin 1,000 mg Tablet 1,000 mg PO BID cyanocobalamin (vitamin B-12) 1,000 mcg Capsule 1,000 mcg PO QAM atorvastatin 40 mg tablet 40 mg PO QAM metoprolol succinate 100 mg tablet extended release 24 hr 100 mg PO QAM pantoprazole 40 mg tablet,delayed release (DR/EC) 40 mg PO BID clobetasol 0.05 % ointment 1 applic TOPICAL BID PRN (Reason: Skin Irritation) albuterol sulfate 90 mcg/actuation Hfa Aerosol Inhaler 2 puff INHALATION Q4H PRN (Reason: COUGH/SHORT OF BREATH/WHEEZING) levothyroxine 112 mcg tablet 112 mcg PO DAILYBB ferrous sulfate 27 mg iron Tablet 27 mg PO DAILY Rx Instructions: Pt unsure of this medication at this date/time ergocalciferol (vitamin D2) 1,250 mcg (50,000 unit) Capsule 1,250 mcg PO Q7D@0900 Qty: 12 0RF Rx Instructions: Sunday Changed warfarin 1 mg tablet 1.5 mg PO DAILY Qty: 30 0RF Rx Instructions: Per patient, he started this on 12/03/23 and has only taken 1 dose. Discontinued nitroglycerin [Nitrostat] 0.4 mg Tablet, Sublingual 0.4 mg sublingual UD PRN (Reason: Chest Pain) Rx Instructions: one tab under tongue as needed for chest pain maximum 3 doses Discharge Orders: Discharge Order (Routine); Ordered 12/11/23 Ordered By: Monica Hanson Admission Data Admit Date/Time: 12/05/23 18:23 Attending Provider: Yen Vega Admit Provider: Bert Mahan Primary Care Provider: Kaitlin Price Other Providers: Bert Mahan; Bailey Young Other Interventions: Discharge Summary Assessment (RN) Last Done: 12/11/23 12:34 Supervising Physician Co-Signing Physician Notes PT/INR closer to therapeutic, 1.9 today, will give 2 mg coumadin today prior to leaving. 1.5 mg daily from hai, pt to f/u w/ coumadin clinic in 2-3 days time and further recs from coumadin clinic. DC hep drip. no blood in stool per pt. Pt feels better, he is hemodynamically stable. Spent additional 15 min in addition to HEADWAITER/HEADWAITRESS's time. I have seen and examined the patient and have discussed the case with the provider above. I agree with the assessment and plan as stated.
[2023-12-11] MEDS: WARFARIN SOD 2 MG TAB PO ONE (12:41)
[2023-12-12] MEDS ORDERED: ERGOCALCIFEROL 1250 MCG (50,000 UNITS) CAP PO SCH (09:00)
== END 2023-12-11 13:52 | disposition home or self-care (01) | DRG 377 ==
LOC: ED 15:52 → SUATTDRO 18:23 → 2E 18:23